=== PATIENT | male | born 1965 | race Caucasian/White ===

== ENCOUNTER 2019-03-11 10:07 | Observation (INO) | payer MEDICAID, SELFPAY ==
[2019-03-11] VITALS (13 sets, daily range): BP systolic 92–145; BP diastolic 57–109; PULSE 65–151; RESP 12–21; TEMP 36.4–37.6; O2SAT 94–97; BMI 22.3; BMI 21.6
--- NOTE | 2019-03-11 10:11 | RAD_ITS ---
STUDY: X-RAY CHEST REASON FOR EXAM: Male, 53 years old. Chest pain with increasing falls and dizziness TECHNIQUE: AP COMPARISON: None. FINDINGS: EKG leads project over the chest. The lungs are clear and expanded. There is no demonstrated pleural abnormality. Normal size heart. Normal mediastinum and carlyn. Normal visualized pulmonary arteries. Normal visualized aortic arch and descending thoracic aorta. There are diffuse degenerative changes of the visualized thoracic spine. Normal visualized ribs, clavicles, and shoulders. There is no demonstrated abnormality of the visualized soft tissue structures of the upper abdomen. RAD/Chest 1 View (Portable) IMPRESSION: Nonacute portable x-ray examination of the chest. Electronically Signed: Khai Nicole MD at 10:36 EDT , Service support ,
--- NOTE | 2019-03-11 10:11 | EKG12_ITS ---
Test Reason : DIZZINESS Blood Pressure : / mmHG Vent. Rate : 069 BPM Atrial Rate : 069 BPM P-R Int : 150 ms QRS Dur : 084 ms QT Int : 402 ms P-R-T Axes : 033 018 044 degrees QTc Int : 430 ms Normal sinus rhythm with sinus arrhythmia Normal ECG Confirmed by LIBAN HARRINGTON, CESAR ([id number]), editorial writer DEMI GUILLEN ([id number] on 03/15/2019 11:57:58 AM Referred By: Jovanny Alva Confirmed By:CESAR LOUIE MD
--- NOTE | 2019-03-11 10:15 | NURSING ---
NO OLD EKGS
--- NOTE | 2019-03-11 10:33 | CT_ITS ---
STUDY: CT ABDOMEN AND PELVIS WITHOUT CONTRAST REASON FOR EXAM: Male, 53 years old. Hernia repair 4 days ago, syncopal episode with dizziness, right hip bruising after falling RADIATION DOSAGE (If Supplied By Facility): CTDIvol = ( 6.44 ) mGy, DLP = ( 437.68 ) mGycm TECHNIQUE: Transaxial images were obtained from the dome of the diaphragm to the symphysis pubis without oral contrast, and without intravenous contrast. Sagittal and coronal images were reconstructed. Individualized dose optimization techniques were used for this CT. COMPARISON: None. FINDINGS: The visualized lung bases are unremarkable. The visualized portions of the heart are within normal limits. Normal liver. Normal gallbladder and extrahepatic biliary system. Normal spleen. Normal pancreas. Normal bilateral adrenal glands. Normal right kidney. Normal left kidney. Normal visualized stomach. Normal small intestine. Normal colon. The appendix is visualized and appears normal. Normal abdominal aorta. Normal inferior vena cava. Normal retroperitoneum. Normal urinary bladder. Small locules of air in the right inguinal region compatible with recent surgery. There is a 3.8 x 4.2 cm rounded hyperdense collection best seen on image 160 in the region of the right inguinal canal, extending to the upper right hemiscrotum. A very small fat-containing left inguinal hernia is identified. There are diffuse degenerative changes of the visualized lumbar spine. No fracture identified. CT/Abdomen/Pelvis without Cont IMPRESSION: 1. 3.8 x 4.2 cm right inguinal hematoma. 2. Small locules of air in the right inguinal region compatible with recent surgery/hernia repair. Electronically Signed: Khai Nicole MD at 11:14 EDT , Service support ,
[2019-03-11 10:42] LABS: Absolute Lymphocyte Count 0.67 X10^3/ul (0.83-4.51); Absolute Neutrophil Count 3.2 X10^3/uL (2.0-7.7); Basophil# 0.01 X10^3/uL; Basophil% 0.2 % (0-1); Eosinophil# 0.03 X10^3/uL; Eosinophils% 0.7 % (0-5); Hematocrit 34.5 % (40-54); Hemoglobin 12.4 g/dl (13.0-16.5); Lymphocyte # 0.67 X10^3/ul (4.0); Lymphocyte % 15.5 % (19-41); Mean Corp Hgb Conc 35.9 g/gl (32-36); Mean Corpuscular Hgb 32.6 pg (27.0-32.0); Mean Corpuscular Volume 90.8 fL (80-94); Mean Platelet Vol. 9.8 fl (6.2-12.0); Monocyte# 0.39 X10^3/uL; Neutrophil # 3.21 X10^3/uL (2.7-7.7); Neutrophil % 74.4 % (47-70); Platelet Count 144 K/mm3 (150-450); RBC Distribution Width CV 13.3 % (11.6-14.6); RBC Distribution Width SD 43.5 fl (35.1-43.9); White Blood Count 4.3 K/mm3 (4.4-11.0)
[2019-03-11 10:45] LABS: POSITIVE COUNT NO; POSITIVE DIFFERENTIAL NO; POSITIVE MORPHOLOGY NO
[2019-03-11 10:57] LABS: Anion Gap 10 (5-15); BUN 10 mg/dL (7-18); BUN/Creat Ratio 12.1 RATIO (10-20); Calcium,Total 9.4 mg/dL (8.5-10.1); Chloride 83 mmol/L (98-107); Creatinine, Serum 0.83 mg/dL (0.70-1.30); EST Glomerular Filtration Rate 104 mL/min (>60); Est Glom Filt Rate - Afr Amer 125 mL/min (>60); Estimated Creatinine Clearance 106.87 ml/min; Glucose 103 mg/dL (74-106); Potassium 3.1 mmol/L (3.5-5.1); Sodium Level 123 mmol/L (136-145)
--- NOTE | 2019-03-11 11:19 | NURSING ---
DR PORTER PAGEFord
--- NOTE | 2019-03-11 11:54 | NURSING ---
DR MANINDER BURROUGHS
--- NOTE | 2019-03-11 11:58 | NURSING ---
PCU MANINDER DIZZINESS, NEAR SYNCOPE
--- NOTE | 2019-03-11 12:02 | ED.VIS.GEN ---
History of Present Illness Chief Complaint: Dizziness Informant: Patient, Family Onset: Yesterday Current Severity: Mild Narrative: Patient indicates he is a few days status post right inguinal hernia repair by Dr. Jarvis, he indicates he had very poor p.o. intake over the last few days, Dr. Moore actually did a home visit March and found to hematoma and some bruising but otherwise unremarkable exam. Patient reports that every time he stands or moves he seems to get dizzy today he did so got dizzy knee basically helped himself to the ground he had no LOC no trauma he states he simply has no appetite to eat anything, he has had normal bowel bladder habits no cardiovascular history no fever no cough no chest pain laying in the bed he has no complaints Past Medical History - Allergies and Home Meds Allergies/Adverse Reactions: Allergies No Known Allergies Allergy (Verified 03/11/19 10:09) Primary Care Physician: Care Physician,No Primary [Primary Care Provider] - Past Medical History: - - See above in the complete chart Smoking Status: Never smoker Review of Systems General: Denies: Chills, Fever, Sweats Eyes: Denies: Visual changes - bilaterally, Diplopia ENT: Denies: Rhinorrhea, Sore throat Cardiovascular: Denies: Chest pain, Palpitations Respiratory: Denies: Dyspnea, Cough, Dyspnea on exertion Gastrointestinal: Denies: Abdominal pain, Nausea, Vomiting, Diarrhea, Melena, Hematochezia Genitourinary: Reports: - - His urinary bowel habits been normal he does have a contusion and some bruising over the right inguinal area that is really stable. Denies: Dysuria, Hematuria, Frequency Musculoskeletal: Denies: Back pain, Extremity Pain Skin: Denies: Rash, Wounds Neurological: Denies: Headache, Weakness, Numbness Physical Exam Vital Signs/Narrative: Vital Signs Temp Pulse Resp BP Pulse Ox 03/11/19 11:07 76 12 139/109 H 96 03/11/19 10:07 97.6 F L 81 16 141/82 H General: Well nourished, Well developed, No Acute Distress Head: Normocephalic, Atraumatic Eyes: Perrl, EOMI ENT: Moist mucous membranes, No rhinorrhea Neck: Supple, Nontender Cardiovascular: Regular rate, Regular rhythm, No murmurs Respiratory: No distress, CTA bilaterally, Chest nontender Abdomen: Soft, Nontender, Nondistended, Normal bowel sounds : - - Over the right inguinal hernia area there is a small subtle HONEY Angela there is contusion minimal pain the incisions intact the scrotum is nontender the contusion extends to the thigh right hemiscrotum and over the right suprapubic region no fluctuance or crepitance Back: Nontender, Normal Inspection Extremities: Nontender, No edema Skin: Normal color, No rash Neurological: Alert, Oriented x3, Cranial nerves II-XII grossly intact, Normal Strength, Normal Sensation Psychological: Normal affect, Normal Mood Diagnostic/Tx/Re-eval - Medical Decision Making Dr. Jarvis called in related to the patient's complaints as to the CT scan be obtained in addition to any other test that are necessary The CT abdomen report is available showing what appears to be postoperative changes nothing acute, the sodium is low at 123 the rest of the screening labs are unremarkable patient's EKG shows sinus rhythm no acute injury pattern heart rate 70, he indicates he had poor p.o. intake, he is apparently on hydrochlorothiazide he has received IV fluids rehydration given all the above, Dr. Jarvis came in and saw the patient, agrees with admission, spoke with the hospitalist given all the above the plan is to admit to medicine for further evaluation treatment Admit stable Final impression Hyponatremia, generalized weakness, dehydration, status post right inguinal hernia repair ED Disposition - Plan for ED Patient: Diagnosis: Hyponatremia Referrals: Care Physician,No Primary [Primary Care Provider] -
--- NOTE | 2019-03-11 12:22 | PCM.CONS.GEN ---
Reason for Consult Date of Consultation: 03/11/19 Reason for Consultation: dizziness, near syncope History of Present Illness: The patient is a 53 year old M whom I performed a right inguinal hernia repair on March 07. the patient had a history of hypertension, anxiety, sleep apnea and previous alcohol abuse.his outpatient medicines were listed as Celexa, lisinopril hydrochlorothiazide, Crestor, Norvasc, naltrexone, fluticasone, multivitamins, he has no listed allergies. The patient underwent an open right inguinal hernia repair under monitored anesthetic care-local sedation. The patient was found to have both a direct and indirect defect. this was repaired using a mesh plug technique using a medium-sized plug placed in the internal ring. Surgery was uneventful. That evening, the patient's called noting he was bleeding from the right inguinal incision. The patient was instructed to hold pressure on the site. The next morning, the patient noted significant bruising with some swelling in the inguinal region the upper thigh and hemiscrotum. he presented to [facility] emergency department and was discharged with instructions contact me. I visited the patient for a house call and found significant bruising without signs of recurrence or other difficulties beyond superficial hematoma/bruise. The patient's and patient again contacted me this morning saying for the last couple days he is felt somewhat dizzy. He's had a poor appetite. This morning he had near syncopal episodes and fell down twice. I recommended to present to [facility] emergency department. I contacted the emergency department to inform that he would be on his way. I asked that they obtain a CT scan of the abdomen given his recent surgical history and postoperative bruising. He states overall he is at a relatively poor appetite. He did note a bowel movement today. Laboratory studies demonstrate a slightly low white blood cell count.hemoglobin is 12.4. Sodium was seen apparently low at 123 with a potassium of 3.1 and a chloride of 83. BUN and creatinine are 10 and 0.8. Urinalysis is currently pending. CT scan of the abdomen demonstrated the right inguinal hematoma and air in the subcutaneous tissues compatible with his recent hernia. No other specific abnormalities or extending hematoma retroperitoneally were noted. Past Medical History Allergies No Known Allergies Allergy (Verified 03/11/19 10:09) Home Medications: Ambulatory Orders Medication Instructions Recorded Hydrochlorothiazide [Hctz] 25 mg PO DAILY 03/11/19 Rosuvastatin Calcium 40 mg PO 03/11/19 Surgical History: herniorrhaphy Smoking Status: Never smoker Review of Systems Constitutional: Reports: Malaise, Fatigue HEENT: Denies: Head Aches, Sinus Congestion, Sinus Drainage Cardiovascular: Denies: Chest Pain, Palpitations Respiratory: Denies: Cough, Shortness of breath at rest, Sputum production Gastrointestinal: Denies: Abdominal Pain, Nausea, Vomiting Genitourinary: Denies: Dysuria Musculoskeletal: Denies: Joint Pain, Joint Tenderness Skin: Denies: Rash, Wounds Neurological: Reports: Balance problems. Denies: Focal weakness, Numbness, Tingling Psychiatric: Denies: Anxiety, Depression, Homicidal Ideations, Suicidal Ideations Hematologic/ Lymphatic: Denies: Easy Bruising, Easy Bleeding Patient Problems: Active and Suspected Problems Hyponatremia (Acute) - Physical Exam General: Alert, Oriented x3, Cooperative Lungs: Clear to auscultation, Normal air movement Cardiovascular: Regular rate, No murmurs Abdomen: Bowel Sounds Present, Soft, Non Tender - abdomen-tender over hematoma in the right inguinal region with swelling consistent with his hematoma area there is bruising in the inguinal area down to the scrotum along with the bruising now tracking down the right anterior thigh. Overall, this area is softer than when seen 3 days previously. Vital Signs Temp Pulse Resp BP Pulse Ox 97.6 F L 76 21 H 145/94 H 97 03/11/19 10:07 03/11/19 12:04 03/11/19 12:04 03/11/19 12:04 03/11/19 12:04 Oxygen Delivery Method Room Air Weight: 72.575 kg Body Mass Index (BMI) 22.3 Laboratory Tests Past 24 Hrs 03/11/19 03/11/19 10:26 10:26 WBC 4.3 L RBC 3.80 L Hgb 12.4 L Hct 34.5 L MCV 90.8 MCH 32.6 H MCHC 35.9 RDW 13.3 RDW Differential 43.5 Plt Count 144 L MPV 9.8 Immature Gran % (Auto) 0.200 Neut % (Auto) 74.4 H Lymph % (Auto) 15.5 L Leslie % (Auto) 9.0 Eos % (Auto) 0.7 Baso % (Auto) 0.2 Absolute Neuts (auto) 3.2 Absolute Lymphs (auto) 0.67 L Total Counted Not Reportable Sodium 123 L Potassium 3.1 L Chloride 83 L Carbon Dioxide 30.0 Anion Gap 10 BUN 10 Creatinine 0.83 Estim Creat Clear Calc 106.87 Est GFR (MDRD) Af Amer 125 Est GFR (MDRD) Non-Af 104 BUN/Creatinine Ratio 12.1 Glucose 103 Calcium 9.4 Troponin I < 0.015 Assessment/Plan All Active Problems Hyponatremia (Acute) hyponatremia, mild confusion, falling - postoperative day 4 status post right inguinal hernia repair with bruising Patient will be admitted to medicine service for evaluation of his hyponatremia and hypokalemia an correction of his electrolyte abnormalities. Likely this is due to water access compared to food, electrolyte intake over the last few days. Patient has significant bruising with a hematoma which is soft no signs of wound infection. We'll follow this area clinically.
[2019-03-11] MEDS: 0.9% Normal Saline 1,000 ML 999 ML IV (12:32)
--- NOTE | 2019-03-11 12:40 | HP.PCM_ITS ---
Problem List (1) CHRONIC ALCOHOL USE DEPENDENCE Status: Chronic (2) Right inguinal hematoma Status: Acute (3) Dizziness Status: Acute (4) Electrolyte abnormality Status: Acute (5) Hypertension Status: Chronic History of Present Illness Date of Admission: 03/11/19 Chief Complaint: Dizziness and fall The patient is a 53 year old M with history of chronic alcohol use and dependence came to ED with feeling of dizziness, lightheadedness and fall twice today. 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 He got dizzy, lightheaded and fell twice once in kitchen and another in the garage but did not sustain any major injury. Patient also had right inguinal direct and indirect open inguinal hernia by on March 07, 2019. Patient developed bruising and hematoma on the evening of surgery and went to [place] ER next day and was discharged with follow-up with Dr. Jarvis. Patient is on conservative weight and watchful management for right inguinal hematoma. Complained of mild pain over right inguinal area. Patient feels more dizzy and lightheaded when he tries to stand up or walks. Patient denies syncope. Patient denies clumsy movement, tinnitus, vomiting, nausea, sudden loss of vision. In ED, blood pressure is 145/91. Heart rate in 70s. Blood pulse ox 97% on room air Past Medical History Past Medical History (Chronic Problems): Chronic Problems CHRONIC ALCOHOL USE DEPENDENCE (Chronic) Hypertension (Chronic) Allergies No Known Allergies Allergy (Verified 03/11/19 10:09) Home Medications: Ambulatory Orders Medication Instructions Recorded Amlodipine Besylate [Norvasc] 5 mg PO DAILY 03/11/19 Ascorbic Acid [Vitamin C] 500 mg PO DAILY@0800 03/11/19 Cyanocobalamin (Vitamin B-12) 2 tab PO DAILY 03/11/19 [B-12] Fluticasone Propionate [Flovent 50 mcg IH DAILY 03/11/19 Diskus] Hydrochlorothiazide [Hctz] 25 mg PO DAILY 03/11/19 Lysine 1,000 mg PO DAILY 03/11/19 Multivitamin [Daily Multiple 1 ea PO DAILY 03/11/19 Vitamin] Naltrexone HCl 50 mg PO DAILY 03/11/19 Potassium Gluconate 2.5 meq PO DAILY 03/11/19 Rosuvastatin Calcium 40 mg PO QHS 03/11/19 Valacyclovir HCl [Valacyclovir] 1,000 mg PO DAILY 03/11/19 Zinc 50 mg PO DAILY 03/11/19 Surgical History: herniorrhaphy Smoking Status: Never smoker - *Family History Maternal History Items: Asthma, Diabetes Review of Systems Constitutional: Reports: Anorexia, Malaise, Weakness, Fatigue HEENT: Denies: Head Aches, Sinus Congestion, Sinus Drainage Cardiovascular: Denies: Chest Pain, Palpitations Respiratory: Denies: Cough, Shortness of breath at rest, Sputum production Gastrointestinal: Reports: Abdominal Pain, - - Right inguinal pain. Denies: Nausea, Vomiting Genitourinary: Denies: Dysuria Musculoskeletal: Denies: Joint Pain, Joint Tenderness Skin: Denies: Rash, Wounds Neurological: Denies: Numbness, Tingling, Focal weakness Psychiatric: Denies: Anxiety, Depression, Homicidal Ideations, Suicidal Ideations Hematologic/ Lymphatic: Denies: Easy Bruising, Easy Bleeding VTE Information - Inpt Only VTE Present on Admission: No VTE Mechan Device Prophylaxis: SCD's, None VTE Pharm Prophylaxis ordered?: No Patient Problems: Active and Suspected Problems Hyponatremia (Acute) Right inguinal hematoma (Acute) Dizziness (Acute) Electrolyte abnormality (Acute) - Physical Exam General: Alert, Oriented x3, Cooperative HEENT: Atraumatic, PERRLA, EOMI, Normocephalic Oral: Dry Mucosa Neck: Supple, No JVD, Negative Carotid Bruits Lungs: Clear to auscultation, Normal air movement, No rhonchi, No wheeze, No rales Cardiovascular: Regular rate, Regular Rhythm, Normal S1, Normal S2, No murmurs Abdomen: Bowel Sounds Present, Soft, Non-Distended, Tender, - - Right inguinal hematoma, with bruise spreading out in the right flank, upper aspect of right thigh and perineal region. Mild tenderness present. Improving. Extremities: No edema, Capillary Refill Less than 3 Seconds Skin: No rashes, No breakdown Musculoskeletal: No Tenderness to Palpation of Joints or Extremities, Arthritic Changes Lymphatic: No Cervical, Supraclavicular, or Inguinal Adenopathy Neurological: Cranial nerves II-XII grossly intact Psych/Mental Status: Normal Affect, Appropriate Vital Signs Temp Pulse Resp BP Pulse Ox 97.6 F L 78 20 H 145/91 H 95 03/11/19 10:07 03/11/19 12:33 03/11/19 12:33 03/11/19 12:33 03/11/19 12:33 Oxygen Delivery Method Room Air Weight: 160 lb Body Mass Index (BMI) 22.3 Laboratory Tests Past 24 Hrs 03/11/19 03/11/19 10:26 10:26 WBC 4.3 L RBC 3.80 L Hgb 12.4 L Hct 34.5 L MCV 90.8 MCH 32.6 H MCHC 35.9 RDW 13.3 RDW Differential 43.5 Plt Count 144 L MPV 9.8 Immature Gran % (Auto) 0.200 Neut % (Auto) 74.4 H Lymph % (Auto) 15.5 L Vilas % (Auto) 9.0 Eos % (Auto) 0.7 Baso % (Auto) 0.2 Absolute Neuts (auto) 3.2 Absolute Lymphs (auto) 0.67 L Total Counted Not Reportable Sodium 123 L Potassium 3.1 L Chloride 83 L Carbon Dioxide 30.0 Anion Gap 10 BUN 10 Creatinine 0.83 Estim Creat Clear Calc 106.87 Est GFR (MDRD) Af Amer 125 Est GFR (MDRD) Non-Af 104 BUN/Creatinine Ratio 12.1 Glucose 103 Calcium 9.4 Troponin I < 0.015 Assessment/Plan All Active Problems Hyponatremia (Acute) Right inguinal hematoma (Acute) Dizziness (Acute) Electrolyte abnormality (Acute) The patient is a 53 year old M with history of chronic alcohol use and dependence came to ED with feeling of dizziness, lightheadedness and fall twice today. 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 He got dizzy, lightheaded and fell twice once in kitchen and another in the garage but did not sustain any major injury. Patient also had right inguinal direct and indirect open inguinal hernia by on March 07, 2019. Patient developed bruising and hematoma on the evening of surgery and went to [place] ER next day and was discharged with follow-up with Dr. Jarvis. Patient is on conservative weight and watchful management for right inguinal hematoma. Complained of mild pain over right inguinal area. Patient feels more dizzy and lightheaded when he tries to stand up or walks. Patient denies syncope. Patient denies clumsy movement, tinnitus, vomiting, nausea, sudden loss of vision. In ED, blood pressure is 145/91. Heart rate in 70s. Blood pulse ox 97% on room air 1. Dizziness/mild vertigo probably secondary to dehydration, and electrolyte abnormality: The patient is being admitted in PCU. IV fluid normal saline 100 developed per hour after 1 L bolus given in ED. Check BMP in the evening. Titrate the IV fluid rate accordingly. Orthostatic vitals ordered. 2. Chronic alcohol abuse and dependence with risk of alcohol withdrawal syndrome: As per , patient drinks about 15-20 beers daily and more on weekends. Patient denies hard liquor. Patient has anxiety and had alcohol withdrawal syndrome in the past. Started on CIWA monitoring and Ativan as needed as per CIWA scale. Monitor intake and output. If patient goes impaired withdrawal, will put on Librium scheduled and taper regimen. 3. Right inguinal hematoma, postoperative after right inguinal direct and indir ect hernia repair with mesh: Patient seen by surgeon, Dr. Maharaj. Improving. Will follow clinically. On conservative management. He does not seem to be infected. No aspirin/anticoagulant. 4. Hypertension: It seems patient has difficult to control blood pressure in the past and is on 3 antihypertensive medications. HCTZ 25, lisinopril 20, amlodipine 5 mg daily. Hold HCTZ. Monitor blood pressure and resume lisinopril and amlodipine accordingly. 6. Lipidemia: CPK ordered. If CPK is normal, can continue rosuvastatin. DVT prophylaxis: On bilateral SCDs. Pharmacological paralysis contraindicated Code Visit Inpatient E&M: 15039 Init Hosp L3
[2019-03-11 14:21] LABS: AST(SGOT) 102 U/L (15-37); Alanine Aminotransfer ALT/SGPT 70 U/L (16-61); Albumin, Serum 3.9 g/dL (3.2-5.0); Alkaline Phosphatase 90 U/L (45-117); Bilirubin, Direct 0.31 mg/dL (0.00-0.30); CPK Total, Creatine Kinase 441 U/L (39-308); GGTP 139 U/L (15-85); Globulin 3.9 g/dL (2.2-4.2); Protein, Total 7.8 g/dL (6.4-8.2)
[2019-03-11 14:21] LABS: Amphetamine Urine VISTA NEGATIVE (<1000 ng/mL); Barbiturate Urine VISTA NEGATIVE (< 200 ng/mL); Benzodiazepine Urine VISTA NEGATIVE (< 200 ng/mL); Cocaine Urine VISTA NEGATIVE (< 300 ng/mL); Ecstacy Urine VISTA NEGATIVE (< 500 ng/mL); Methadone Urine VISTA NEGATIVE (< 300 ng/mL); PCP Urine VISTA NEGATIVE (< 25 ng/mL); THC Urine VISTA NEGATIVE (< 50 ng/mL); Vista UDS pH Range 6
[2019-03-11] MEDS: 0.9% Normal Saline 1,000 ML 100 ML IV (14:25)
[2019-03-11] MEDS: LORazepam 1 MG Tablet 2 MG PO ×4 (14:25→23:26)
[2019-03-11] MEDS: Potassium Chloride 10mEq/100mL 10 MEQ/100 ML IV.SOLN. 100 MEQ IV BOLUS ×2 (15:48→16:55)
[2019-03-11] MEDS: Thiamine Hydrochloride 100 MG Tablet PO (16:57)
[2019-03-11] MEDS: Acyclovir 200 MG Capsule 400 MG PO (23:26)
[2019-03-12] VITALS (9 sets, daily range): BP systolic 132–166; BP diastolic 81–92; PULSE 62–108; RESP 14–15; TEMP 36.8–37; O2SAT 95–98
[2019-03-12] MEDS: 0.9% Normal Saline 1,000 ML 100 ML IV (01:24)
--- NOTE | 2019-03-12 04:45 | NURSING ---
SCHEDULED MIDNIGHT ATIVAN HELD PT HAD RECENTLY RCVD A PRN DOSE OF ATIVAN 2MG AND DID NOT NEED ANY AT THIS TIME. WILL CONTINUE TO MONITOR SEVERITY OF WITHDRAWALS.
[2019-03-12] MEDS: LORazepam 1 MG Tablet 2 MG PO (06:22)
[2019-03-12 06:36] LABS: Anion Gap 7 (5-15); BUN 16 mg/dL (7-18); BUN/Creat Ratio 17.5 RATIO (10-20); Calcium,Total 9.2 mg/dL (8.5-10.1); Chloride 99 mmol/L (98-107); Creatinine, Serum 0.91 mg/dL (0.70-1.30); EST Glomerular Filtration Rate 92 mL/min (>60); Est Glom Filt Rate - Afr Amer 112 mL/min (>60); Estimated Creatinine Clearance 94.43 ml/min; Glucose 92 mg/dL (74-106); Magnesium 1.8 mg/dL (1.6-2.6); Phosphorus 2.6 mg/dL (2.5-4.9); Potassium 3.8 mmol/L (3.5-5.1); Sodium Level 137 mmol/L (136-145); Thyroid Stim Hormone (TSH) 3.33 uIU/mL (0.358-3.74)
[2019-03-12 06:37] LABS: Absolute Lymphocyte Count 0.56 X10^3/ul (0.83-4.51); Absolute Neutrophil Count 2.4 X10^3/uL (2.0-7.7); Basophil# 0.03 X10^3/uL; Basophil% 0.9 % (0-1); Eosinophil# 0.03 X10^3/uL; Eosinophils% 0.9 % (0-5); Hematocrit 34.7 % (40-54); Hemoglobin 11.9 g/dl (13.0-16.5); Lymphocyte # 0.56 X10^3/ul (4.0); Mean Corp Hgb Conc 34.3 g/gl (32-36); Mean Corpuscular Hgb 32.2 pg (27.0-32.0); Mean Platelet Vol. 10.3 fl (6.2-12.0); Monocyte# 0.46 X10^3/uL; Monocyte% 13.1 % (0-10); Neutrophil # 2.42 X10^3/uL (2.7-7.7); Neutrophil % 69.1 % (47-70); Platelet Count 122 K/mm3 (150-450); RBC Distribution Width CV 13.3 % (11.6-14.6); RBC Distribution Width SD 43.6 fl (35.1-43.9); Red Blood Count 3.69 M/mm3 (4.6-6.2); White Blood Count 3.5 K/mm3 (4.4-11.0)
[2019-03-12 06:54] LABS: Differential Indicated SCAN CRITERIA MET; POSITIVE COUNT NO; POSITIVE DIFFERENTIAL YES; POSITIVE MORPHOLOGY NO
[2019-03-12 07:03] LABS: Differential Comment SCANNED
--- NOTE | 2019-03-12 09:11 | PN.SURG_ITS ---
Patient Problems: Active and Suspected Problems Hyponatremia (Acute) Right inguinal hematoma (Acute) Dizziness (Acute) Electrolyte abnormality (Acute) Subjective: patient feeling less dizzy this am - Physical Exam General: Alert, Oriented x3 Lungs: Clear to auscultation, Normal air movement Cardiovascular: Regular rate, No murmurs Abdomen: Bowel Sounds Present, Soft, Non Tender, - - stable Right inguinal bruising Vital Signs Temp Pulse Resp BP Pulse Ox 98.3 F 63 15 132/89 H 97 03/12/19 06:00 03/12/19 07:00 03/12/19 06:00 03/12/19 06:00 03/12/19 06:00 Oxygen Delivery Method Room Air Weight: 70.307 kg Body Mass Index (BMI) 21.6 Orthostatic Vital Signs Start: 03/11/19 18:56 Freq: q24h Status: Active Protocol: Activity Type Activity Date Activity User E-Sign Co-Sign Detail Recorded Client Recorded Date Recorded By Document 03/11/19 18:56 BAM [id number] 03/11/19 18:57 BAM 03/11/19 18:56 Orthostatic Vitals Standing -Blood Pressure (90/60-120/80) 101/57 L -Extremity Use Left Arm -Pulse Rate (60-100) 122 H Sitting -Blood Pressure (90/60-120/80) 92/69 -Extremity Use Left Arm -Pulse Rate (60-100) 101 H Lying -Blood Pressure (90/60-120/80) 123/71 H -Extremity Use Left Arm -Pulse Rate (60-100) 91 Intake and Output for Last 24 Hours 03/10/19 03/11/19 03/12/19 23:59 23:59 23:59 Intake Total 1990 2885 / 2885 Output Total 700 / 800 800 / 800 Balance -338 / 1191 2085 / 2085 Laboratory Tests Past 24 Hrs 03/11/19 03/11/19 03/11/19 10:26 10:26 10:26 WBC 4.3 L RBC 3.80 L Hgb 12.4 L Hct 34.5 L MCV 90.8 MCH 32.6 H MCHC 35.9 RDW 13.3 RDW Differential 43.5 Plt Count 144 L MPV 9.8 Immature Gran % (Auto) 0.200 Neut % (Auto) 74.4 H Lymph % (Auto) 15.5 L [place] % (Auto) 9.0 Eos % (Auto) 0.7 Baso % (Auto) 0.2 Absolute Neuts (auto) 3.2 Absolute Lymphs (auto) 0.67 L Total Counted Not Reportable Differential Comment Diff Path Review Sodium 123 L Potassium 3.1 L Chloride 83 L Carbon Dioxide 30.0 Anion Gap 10 BUN 10 Creatinine 0.83 Estim Creat Clear Calc 106.87 Est GFR (MDRD) Af Amer 125 Est GFR (MDRD) Non-Af 104 BUN/Creatinine Ratio 12.1 Glucose 103 Calcium 9.4 Phosphorus Magnesium Total Bilirubin 1.00 Direct Bilirubin 0.31 H GGT 139 H AST 102 H ALT 70 H Alkaline Phosphatase 90 Total Creatine Kinase 441 H Troponin I < 0.015 Total Protein 7.8 Albumin 3.9 Globulin 3.9 TSH Urine Opiates Screen Urine Methadone Screen Ur Barbiturates Screen Ur Phencyclidine Scrn Ur Amphetamines Screen U Methamphetamin-MDMA U Benzodiazepines Scrn Urine Cocaine Screen U Cannabinoids Screen Ur Drug Screen Comment Ethyl Alcohol 03/11/19 03/11/19 03/11/19 10:30 11:50 14:15 WBC RBC Hgb Hct MCV MCH MCHC RDW RDW Differential Plt Count MPV Immature Gran % (Auto) Neut % (Auto) Lymph % (Auto) [place] % (Auto) Eos % (Auto) Baso % (Auto) Absolute Neuts (auto) Absolute Lymphs (auto) Total Counted Differential Comment Diff Path Review Sodium Potassium Chloride Carbon Dioxide Anion Gap BUN Creatinine Estim Creat Clear Calc Est GFR (MDRD) Af Amer Est GFR (MDRD) Non-Af BUN/Creatinine Ratio Glucose Calcium Phosphorus Magnesium Total Bilirubin Direct Bilirubin GGT AST ALT Alkaline Phosphatase Total Creatine Kinase Troponin I < 0.015 Total Protein Albumin Globulin TSH Urine Opiates Screen NEGATIVE Urine Methadone Screen NEGATIVE Ur Barbiturates Screen NEGATIVE Ur Phencyclidine Scrn NEGATIVE Ur Amphetamines Screen NEGATIVE U Methamphetamin-MDMA NEGATIVE U Benzodiazepines Scrn NEGATIVE Urine Cocaine Screen NEGATIVE U Cannabinoids Screen NEGATIVE Ur Drug Screen Comment Ethyl Alcohol 213.0 03/11/19 03/12/19 03/12/19 17:08 05:34 05:34 WBC 3.5 L RBC 3.69 L Hgb 11.9 L Hct 34.7 L MCV 94.0 MCH 32.2 H MCHC 34.3 RDW 13.3 RDW Differential 43.6 Plt Count 122 L MPV 10.3 Immature Gran % (Auto) 0.000 Neut % (Auto) 69.1 Lymph % (Auto) 16.0 L [place] % (Auto) 13.1 H Eos % (Auto) 0.9 Baso % (Auto) 0.9 Absolute Neuts (auto) 2.4 Absolute Lymphs (auto) 0.56 L Total Counted Not Reportable Differential Comment SCANNED Diff Path Review May foll Sodium 137 Potassium 3.8 Chloride 99 Carbon Dioxide 31.0 Anion Gap 7 BUN 16 Creatinine 0.91 Estim Creat Clear Calc 94.43 Est GFR (MDRD) Af Amer 112 Est GFR (MDRD) Non-Af 92 BUN/Creatinine Ratio 17.5 Glucose 92 Calcium 9.2 Phosphorus 2.6 Magnesium 1.8 Total Bilirubin Direct Bilirubin GGT AST ALT Alkaline Phosphatase Total Creatine Kinase Troponin I < 0.015 Total Protein Albumin Globulin TSH 3.33 Urine Opiates Screen Urine Methadone Screen Ur Barbiturates Screen Ur Phencyclidine Scrn Ur Amphetamines Screen U Methamphetamin-MDMA U Benzodiazepines Scrn Urine Cocaine Screen U Cannabinoids Screen Ur Drug Screen Comment Ethyl Alcohol Medical Necessity - Tobacco Use Smoking Status: Never smoker Assessment/Plan All Active Problems Hyponatremia (Acute) Right inguinal hematoma (Acute) Dizziness (Acute) Electrolyte abnormality (Acute) hyponatremia, mild confusion, falling - postoperative day 4 status post right inguinal hernia repair with bruising Patient will be admitted to medicine service for evaluation of his hyponatremia and hypokalemia an correction of his electrolyte abnormalities. Likely this is due to water access compared to food, electrolyte intake over the last few days. ? ETOH - Electrolytes normalized this morning Patient has significant bruising with a hematoma which is soft no signs of would infection. We'll follow this area clinically. He should follow up in my office this with me.
[2019-03-12] MEDS: Folic Acid 1 MG Tablet PO (09:52)
[2019-03-12] MEDS: Ascorbic Acid 500 MG Tablet PO (09:52)
[2019-03-12] MEDS: Lisinopril 20 MG Tablet PO (09:52)
[2019-03-12] MEDS: Acyclovir 200 MG Capsule 400 MG PO (09:52)
[2019-03-12] MEDS: Multivitamins,Ther W-Minerals Tablet 1 TABLET PO (09:52)
[2019-03-12] MEDS: Thiamine Hydrochloride 100 MG Tablet PO (09:52)
[2019-03-12] MEDS: amLODIPine 5 MG Tablet PO (09:52)
--- NOTE | 2019-03-12 12:05 | CASEMGMT ---
Social Work Consult: Alcohol abuse Informant: Self referral Per patient chart patient consumes 15-20 beers daily. Met with patient in room. Upon this criminal justice social worker entering the home, patient with bag packed on bed and reporting that patient is leaving today. Per Dr. Gomez it is being recommended for patient to continue with hospital stay. This criminal justice social worker communicating that medical staff are not recommending for patient to discharge at this time, patient voicing understanding to this but stating to believe that patient will be able to manage own needs within the community. This criminal justice social worker did broach topic of alcohol use with patient, patient reporting to not need any support or assistance with alcohol abuse and [facility]. Patient significant other present in the room and stating to be planning to be with patient throughout the next couple days as patient is recovering. Notified Dr. Gomez and RN of patient wish to leave today. Patient aware that patient will be leaving AMA if patient chooses to leave today. Clara Cardona, [employer], [place]
--- NOTE | 2019-03-12 12:07 | PCM.CONS.R ---
Problem List (1) Hyponatremia Status: Acute Consultation - Renal 03/12/19 PCP/ Referring MD: Requesting physician. Dr Gomez Primary care physician: No Primary Care Phys Reason for Consultation:: Hyponatremia - History of Present Illness History of Present Illness: The patient is a 53 year old M presented to the hospital with generalized weakness, dizziness. Nephrology being consulted for hyponatremia. Sodium on admission was 123 yesterday and has increased to 137 today. Received IV fluids since admission. On the third of this month he had right inguinal hernia repair. Reviewed notes from Dr. Jarvis. Apparently he had direct and indirect hernia which was repaired. Developed some bruising around the surgical site which is being conservatively managed. [place] goes [place]. Apparently he had blood work last month and was told that he had hyponatremia. He was unable to tell me the exact sodium value. Preadmission medications include hydrochlorothiazide. He says some of his medications were changed at the [place] last month. Could not tell which ones. Drinks 9-12 beers a day. currently having tremors - Allergies Allergies: Allergies No Known Allergies Allergy (Verified 03/11/19 10:09) - Current Medications Current Medications: Current Medications Acetaminophen (Tylenol) 650 mg PO Q6H PRN PRN PRN Reason: Mild pain 1-3/Temp > 100.7 F Acyclovir (Zovirax) 400 mg PO BID [facility] Last Admin: 03/12/19 09:52 Dose: 400 mg Documented by: Albuterol Sulfate (Ventolin Aerosols) 2.5 mg INHALATION Q2H PRN PRN PRN Reason: SOB/Wheezing Amlodipine Besylate (Norvasc) 5 mg PO DAILY [facility] Last Admin: 03/12/19 09:52 Dose: 5 mg Documented by: Ascorbic Acid (Vitamin C) 500 mg PO DAILY@0800 [facility] Last Admin: 03/12/19 09:52 Dose: 500 mg Documented by: Bisacodyl (Dulcolax) 10 mg RECTAL DAILY PRN PRN PRN Reason: Constipation Budesonide (Pulmicort Aerosol) 0.5 mg INHALATION Q12H.RT [facility] Last Admin: 03/12/19 11:05 Dose: Not Given Documented by: Folic Acid (Folic Acid) 1 mg PO DAILY@0800 [facility] Stop: 03/14/19 08:01 Last Admin: 03/12/19 09:52 Dose: 1 mg Documented by: Lisinopril (Zestril) 20 mg PO DAILY [facility] Last Admin: 03/12/19 09:52 Dose: 20 mg Documented by: Lorazepam (Ativan) 2 mg PO Q2H PRN PRN; Protocol PRN Reason: CIWA score > 8 but <15 Last Admin: 03/11/19 23:26 Dose: 2 mg Documented by: Lorazepam (Ativan) 2 mg PO UD PRN; Protocol PRN Reason: CIWA score >/=15. Lorazepam (Ativan) 2 mg IV Q2H PRN PRN; Protocol PRN Reason: CIWA score > 8 but <15 Lorazepam (Ativan) 2 mg IV UD PRN; Protocol PRN Reason: CIWA score >/=15. Lorazepam (Ativan) 2 mg PO Q6H [facility]; Taper Stop: 03/17/19 12:44 Last Admin: 03/12/19 06:22 Dose: 2 mg Documented by: Lorazepam (Ativan) 1 mg PO Q24H PRN PRN Reason: Agitation Melatonin (Melatonin) 3 mg PO QHS PRN PRN PRN Reason: INSOMNIA Morphine Sulfate () 2 mg IV Q3H PRN PRN PRN Reason: Severe Pain (7-10/10) Multivitamins/Minerals ([facility] Admin: 03/12/19 09:52 Dose: 1 tablet Documented by: Ondansetron HCl (Zofran) 4 mg IV Q8H PRN PRN PRN Reason: NAUSEA/VOMITING Oxycodone HCl (Oxyir) 10 mg PO Q4H PRN PRN PRN Reason: Moderate Pain (4-6/10) Promethazine HCl (Phenergan) 12.5 mg IV Q6H PRN PRN PRN Reason: Breakthrough Nausea/Vomiting Senna/Docusate Sodium (Senokot-S, Melvi-Colace) 2 tablet PO BID PRN PRN PRN Reason: Constipation [facility]) [facility] Stop: 03/14/19 08:01 Last Admin: 03/12/19 09:52 Dose: 100 mg Documented by: - Past Medical History Past Medical History (Chronic Problems): Chronic Problems CHRONIC ALCOHOL USE DEPENDENCE (Chronic) Hypertension (Chronic) - Past Surgical History Surgical History: herniorrhaphy - Social History Smoking Status: Never smoker - Family History Maternal History Items: Asthma, Diabetes Review of Systems Constitutional: Denies: Chills, Fever, Weight Change HEENT: Denies: Head Aches, Sinus Congestion, Sinus Drainage Cardiovascular: Denies: Chest Pain, Palpitations Respiratory: Denies: Cough, Shortness of breath at rest, Sputum production Gastrointestinal: Denies: Abdominal Pain, Nausea, Vomiting Genitourinary: Denies: Dysuria Musculoskeletal: Denies: Joint Pain, Joint Tenderness Skin: Denies: Rash, Wounds Neurological: Denies: Numbness, Tingling, Focal weakness Psychiatric: Denies: Anxiety, Depression, Homicidal Ideations, Suicidal Ideations Hematologic/ Lymphatic: Denies: Easy Bruising, Easy Bleeding Patient Problems: Active and Suspected Problems Hyponatremia (Acute) Right inguinal hematoma (Acute) Dizziness (Acute) Electrolyte abnormality (Acute) - Physical Exam General: Alert, Oriented x3, Cooperative HEENT: Atraumatic, PERRLA, EOMI, Normocephalic Neck: Supple, No JVD, Negative Carotid Bruits Lungs: Clear to auscultation, Normal air movement Cardiovascular: Regular rate, No murmurs Abdomen: Bowel Sounds Present, Soft, Non Tender Extremities: No edema, Capillary Refill Less than 3 Seconds Skin: No rashes, No breakdown Musculoskeletal: No Tenderness to Palpation of Joints or Extremities Neurological: Cranial nerves II-XII grossly intact Vital Signs Temp Pulse Resp BP Pulse Ox 98.6 F 86 14 149/87 H 96 03/12/19 09:48 03/12/19 11:16 03/12/19 09:48 03/12/19 11:16 03/12/19 09:48 Oxygen Delivery Method Room Air Weight: 70.307 kg Body Mass Index (BMI) 21.6 Orthostatic Vital Signs Start: 03/11/19 18:56 Freq: q24h Status: Active Protocol: Activity Type Activity Date Activity User E-Sign Co-Sign Detail Recorded Client Recorded Date Recorded By Document 03/12/19 11:16 [id number] 03/12/19 11:16 BAM 03/12/19 11:16 Orthostatic Vitals Standing -Blood Pressure (90/60-120/80) 166/90 H -Extremity Use Left Arm -Pulse Rate (60-100) 108 H Sitting -Blood Pressure (90/60-120/80) 161/91 H -Extremity Use Left Arm -Pulse Rate (60-100) 91 Lying -Blood Pressure (90/60-120/80) 149/87 H -Extremity Use Left Arm -Pulse Rate (60-100) 86 Intake and Output for Last 24 Hours 03/10/19 03/11/19 03/12/19 23:59 23:59 23:59 Intake Total 1990 2885 / 2885 Output Total 700 / 800 800 / 800 Balance -338 / 1191 2084 / 2084 Laboratory Tests Past 24 Hrs 03/11/19 03/11/19 03/11/19 10:26 10:30 11:50 WBC RBC Hgb Hct MCV MCH MCHC RDW RDW Differential Plt Count MPV Immature Gran % (Auto) Neut % (Auto) Lymph % (Auto) [place] % (Auto) Eos % (Auto) Baso % (Auto) Absolute Neuts (auto) Absolute Lymphs (auto) Total Counted Differential Comment Diff Path Review Sodium Potassium Chloride Carbon Dioxide Anion Gap BUN Creatinine Estim Creat Clear Calc Est GFR (MDRD) Af Amer Est GFR (MDRD) Non-Af BUN/Creatinine Ratio Glucose Calcium Phosphorus Magnesium Total Bilirubin 1.00 Direct Bilirubin 0.31 H GGT 139 H AST 102 H ALT 70 H Alkaline Phosphatase 90 Total Creatine Kinase 441 H Troponin I Total Protein 7.8 Albumin 3.9 Globulin 3.9 TSH Urine Opiates Screen NEGATIVE Urine Methadone Screen NEGATIVE Ur Barbiturates Screen NEGATIVE Ur Phencyclidine Scrn NEGATIVE Ur Amphetamines Screen NEGATIVE U Methamphetamin-MDMA NEGATIVE U Benzodiazepines Scrn NEGATIVE Urine Cocaine Screen NEGATIVE U Cannabinoids Screen NEGATIVE Ur Drug Screen Comment Ethyl Alcohol 213.0 03/11/19 03/11/19 03/12/19 14:15 17:08 05:34 WBC RBC Hgb Hct MCV MCH MCHC RDW RDW Differential Plt Count MPV Immature Gran % (Auto) Neut % (Auto) Lymph % (Auto) [place] % (Auto) Eos % (Auto) Baso % (Auto) Absolute Neuts (auto) Absolute Lymphs (auto) Total Counted Differential Comment Diff Path Review Sodium 137 Potassium 3.8 Chloride 99 Carbon Dioxide 31.0 Anion Gap 7 BUN 16 Creatinine 0.91 Estim Creat Clear Calc 94.43 Est GFR (MDRD) Af Amer 112 Est GFR (MDRD) Non-Af 92 BUN/Creatinine Ratio 17.5 Glucose 92 Calcium 9.2 Phosphorus 2.6 Magnesium 1.8 Total Bilirubin Direct Bilirubin GGT AST ALT Alkaline Phosphatase Total Creatine Kinase Troponin I < 0.015 < 0.015 Total Protein Albumin Globulin TSH 3.33 Urine Opiates Screen Urine Methadone Screen Ur Barbiturates Screen Ur Phencyclidine Scrn Ur Amphetamines Screen U Methamphetamin-MDMA U Benzodiazepines Scrn Urine Cocaine Screen U Cannabinoids Screen Ur Drug Screen Comment Ethyl Alcohol 03/12/19 05:34 WBC 3.5 L RBC 3.69 L Hgb 11.9 L Hct 34.7 L MCV 94.0 MCH 32.2 H MCHC 34.3 RDW 13.3 RDW Differential 43.6 Plt Count 122 L MPV 10.3 Immature Gran % (Auto) 0.000 Neut % (Auto) 69.1 Lymph % (Auto) 16.0 L [place] % (Auto) 13.1 H Eos % (Auto) 0.9 Baso % (Auto) 0.9 Absolute Neuts (auto) 2.4 Absolute Lymphs (auto) 0.56 L Total Counted Not Reportable Differential Comment SCANNED Diff Path Review May foll Sodium Potassium Chloride Carbon Dioxide Anion Gap BUN Creatinine Estim Creat Clear Calc Est GFR (MDRD) Af Amer Est GFR (MDRD) Non-Af BUN/Creatinine Ratio Glucose Calcium Phosphorus Magnesium Total Bilirubin Direct Bilirubin GGT AST ALT Alkaline Phosphatase Total Creatine Kinase Troponin I Total Protein Albumin Globulin TSH Urine Opiates Screen Urine Methadone Screen Ur Barbiturates Screen Ur Phencyclidine Scrn Ur Amphetamines Screen U Methamphetamin-MDMA U Benzodiazepines Scrn Urine Cocaine Screen U Cannabinoids Screen Ur Drug Screen Comment Ethyl Alcohol Assessment/Plan All Active Problems Hyponatremia (Acute) Right inguinal hematoma (Acute) Dizziness (Acute) Electrolyte abnormality (Acute) Hyponatremia. Presented with a sodium of 123. As per history he had hyponatremia even last month. Unclear what value he had since the labs were done [place]. Also has alcohol abuse history. Drinks 9-12 beers a day. On hydrochlorothiazide for hypertension, dose changes recently ? 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 rapid correction from fluids is also consistent with this. Rapid correction since yesterday. Since he is high risk for pontine myelinolysis, I advised him to stay in hospital 1 more day so that we can give him IV fluids and possibly desmopressin so that we can push down his sodium levels a little bit for today. We can probably let him correct tomorrow since that would be 48 hours. Explained to him possible adverse effects from rapid sodium correction including seizures, central pontine myelinolysis which can be permanent. However, he is not willing to stay in the hospital today. He mentioned that he feels fine. I explained to him that the effects of rapid correction usually do not show up for 5 to 7 days after the event. I also spoke to his significant other who was at bedside. She says that she would like the patient to stay here today and get fluids but she was also not able to convince him to stay. Patient is currently alert, awake. He can make sound decisions. Will likely need to sign out AMA Discussed with Dr. Gomez. We both agreed that the patient has decision-making capacity and can sign out AMA if he wants to get discharged today. all questions answered DC hydrochlorothiazide at the time of discharge. [facility]
--- NOTE | 2019-03-12 12:17 | NURSING ---
Pt left AMA after being educated by both RN and MD on his sodium level and the reason he should medically stay in the hospital. The patient has hx of alcohol abuse and has been exhibiting withdrawal signs and symptoms and wants to leave so that he can go home and drink so extinguish the symptoms. Patient was A&Ox3, completely coherent and his girlfriend was at bedside and they both despite our recommendation wanted to leave AMA. Patients IV was removed, he was encouraged to f/u with Dr. Jarvis and his PCP as soon as possible. pt left floor on his own ability with girlfriend at his side at 1220.
--- NOTE | 2019-03-12 12:35 | PCM.DC.SUM ---
Discharge Date and Diagnosis Date of Admission: 03/11/19 Date of Discharge: 03/12/19 - Primary Discharge Diagnosis Active and Suspected Problems Hyponatremia (Acute) Right inguinal hematoma (Acute) Dizziness (Acute) Electrolyte abnormality (Acute) - Secondary Discharge Diagnosis Chronic Problems CHRONIC ALCOHOL USE DEPENDENCE (Chronic) Hypertension (Chronic) Hospital Course and Treatment nephrology- Dr Sen general surgery- Dr Maharaj Operations: None, - Procedures: None Summary of Care Provided: The patient is a 53 year old M with past medical history of chronic alcohol abuse was admitted through the ED on 03/11/2019 with a complaint of dizziness and lightheadedness as well as 2 episodes of mechanical fall. Patient had recently had right inguinal hernia repair by Dr. Maharaj on March 07, 2019. He separately developed bruising and hematoma at site of surgery and went to [facility] both ultimately discharged. He complained of mild pain over the right inguinal area. Review of systems is otherwise negative. Vitals were within normal limits and labs were unremarkable. He was admitted and managed for dizziness likely due to dehydration. Was also found to be hyponatremic with sodium of 123 which was thought to be contributing to symptoms. He was hydrated with IV fluid normal saline. He also has a history of chronic alcohol abuse drinking about 15-20 beers daily and more on weekends. Patient was successfully hydrated and sodium went up from 1 23-1 37 the next day. Due to concerns of overcorrection of sodium as it should have corrected about 8 mmol/L over 24 hours, nephrology was consulted. Nephrology recommended a dose of desmopressin and D5 water infusion. However patient insisted on leaving AMA as he said he work on his sodium levels at home himself by drinking water. Despite counseling by electric meter setter and physician, patient insisted on leaving AMA. Patient left the hospital on 03/12/2019 AGAINST MEDICAL ADVICE. Patient was seen and examined prior to discharge. He was quite tremulous but denied any lightheadedness or dizziness or palpitations. Review of systems otherwise negative. Orthostatics was positive. Labs and vitals reviewed. o/e: Vital Signs Height 5 ft 11 in Weight: 155 lb Weight in Pounds 155.0 lbs Pulse Ox 96 Temperature 98.6 F Pulse Rate [Standing] 108 Pulse Rate [Sitting] 91 Pulse Rate [Lying] 86 Pulse Rate 66 Respiratory Rate 14 Blood Pressure [Standing] 166/90 Blood Pressure [Sitting] 161/91 Blood Pressure [Lying] 149/87 Blood Pressure 145/92 Blood Pressure Position Sitting [] General: Alert, Oriented x3, Cooperative HEENT: Atraumatic, PERRLA, EOMI, Normocephalic Oral: Dry Mucosa Neck: Supple, No JVD, Negative Carotid Bruits Lungs: Clear to auscultation, Normal air movement, No rhonchi, No wheeze, No rales Cardiovascular: Regular rate, Regular Rhythm, Normal S1, Normal S2, No murmurs Abdomen: Bowel Sounds Present, Soft, Non-Distended, right groin hematoma, minimal tenderness. Erythema over right flank and upper thigh as well as lower abdomen. Extremities: No edema, Capillary Refill Less than 3 Seconds Skin: No rashes, No breakdown Musculoskeletal: No Tenderness to Palpation of Joints or Extremities, Arthritic Changes Lymphatic: No Cervical, Supraclavicular, or Inguinal Adenopathy Neurological: Cranial nerves II-XII grossly intact Psych/Mental Status: Normal Affect, Appropriate Patient left AMA. Per discussion with nephrology, patient was counseled to stop hydrochlorothiazide at home on account of hyponatremia. - Physical Exam General: Alert, Oriented x3, Cooperative, No apparent distress HEENT: Atraumatic, PERRLA, EOMI, Normocephalic Oral: Dry Mucosa Neck: Supple, No JVD, Negative Carotid Bruits Lungs: Clear to auscultation, Normal air movement, No rhonchi, No wheeze, No rales Cardiovascular: Regular rate, Regular Rhythm, Normal S1, Normal S2, No murmurs Abdomen: Bowel Sounds Present, Soft, Non Tender, Non-Distended, No Hepato-splenomegaly Extremities: No clubbing, No cyanosis, No edema, Capillary Refill Less than 3 Seconds Skin: No rashes, No breakdown Musculoskeletal: No Tenderness to Palpation of Joints or Extremities Lymphatic: No Cervical, Supraclavicular, or Inguinal Adenopathy Neurological: Cranial nerves II-XII grossly intact, Neuro grossly intact, Motor Exam 5/5 strength throughout, - - tremors of UEs Psych/Mental Status: Normal Affect, Appropriate, Alert and oriented to time, place, person, mood and affect Vital Signs Temp Pulse Resp BP Pulse Ox 98.6 F 86 14 149/87 H 96 03/12/19 09:48 03/12/19 11:16 07/08/19 09:48 03/12/19 11:16 03/12/19 09:48 Oxygen Delivery Method Room Air Weight: 155 lb Body Mass Index (BMI) 21.6 Orthostatic Vital Signs Start: 03/11/19 18:56 Freq: q24h Status: Active Protocol: Activity Type Activity Date Activity User E-Sign Co-Sign Detail Recorded Client Recorded Date Recorded By Document 03/12/19 11:16 [facility] [id number] 03/12/19 11:16 [facility] 03/12/19 11:16 Orthostatic Vitals Standing -Blood Pressure (90/60-120/80) 166/90 H -Extremity Use Left Arm -Pulse Rate (60-100) 108 H Sitting -Blood Pressure (90/60-120/80) 161/91 H -Extremity Use Left Arm -Pulse Rate (60-100) 91 Lying -Blood Pressure (90/60-120/80) 149/87 H -Extremity Use Left Arm -Pulse Rate (60-100) 86 Intake and Output for Last 24 Hours 03/10/19 03/11/19 03/12/19 23:59 23:59 23:59 Intake Total / 1990 2885 / 2885 Output Total 700 / 800 800 / 800 Balance -338 / 1191 2085 / 2085 Laboratory Tests Past 24 Hrs 03/11/19 03/11/19 03/11/19 10:26 10:30 11:50 WBC RBC Hgb Hct MCV MCH MCHC RDW RDW Differential Plt Count MPV Immature Gran % (Auto) Neut % (Auto) Lymph % (Auto) [place] % (Auto) Eos % (Auto) Baso % (Auto) Absolute Neuts (auto) Absolute Lymphs (auto) Total Counted Differential Comment Diff Path Review Sodium Potassium Chloride Carbon Dioxide Anion Gap BUN Creatinine Estim Creat Clear Calc Est GFR (MDRD) Af Amer Est GFR (MDRD) Non-Af BUN/Creatinine Ratio Glucose Calcium Phosphorus Magnesium Total Bilirubin 1.00 Direct Bilirubin 0.31 H GGT 139 H AST 102 H ALT 70 H Alkaline Phosphatase 90 Total Creatine Kinase 441 H Troponin I Total Protein 7.8 Albumin 3.9 Globulin 3.9 TSH Urine Opiates Screen NEGATIVE Urine Methadone Screen NEGATIVE Ur Barbiturates Screen NEGATIVE Ur Phencyclidine Scrn NEGATIVE Ur Amphetamines Screen NEGATIVE U Methamphetamin-MDMA NEGATIVE U Benzodiazepines Scrn NEGATIVE Urine Cocaine Screen NEGATIVE U Cannabinoids Screen NEGATIVE Ur Drug Screen Comment Ethyl Alcohol 213.0 03/11/19 03/11/19 03/12/19 14:15 17:08 05:34 WBC RBC Hgb Hct MCV MCH MCHC RDW RDW Differential Plt Count MPV Immature Gran % (Auto) Neut % (Auto) Lymph % (Auto) [place] % (Auto) Eos % (Auto) Baso % (Auto) Absolute Neuts (auto) Absolute Lymphs (auto) Total Counted Differential Comment Diff Path Review Sodium 137 Potassium 3.8 Chloride 99 Carbon Dioxide 31.0 Anion Gap 7 BUN 16 Creatinine 0.91 Estim Creat Clear Calc 94.43 Est GFR (MDRD) Af Amer 112 Est GFR (MDRD) Non-Af 92 BUN/Creatinine Ratio 17.5 Glucose 92 Calcium 9.2 Phosphorus 2.6 Magnesium 1.8 Total Bilirubin Direct Bilirubin GGT AST ALT Alkaline Phosphatase Total Creatine Kinase Troponin I < 0.015 < 0.015 Total Protein Albumin Globulin TSH 3.33 Urine Opiates Screen Urine Methadone Screen Ur Barbiturates Screen Ur Phencyclidine Scrn Ur Amphetamines Screen U Methamphetamin-MDMA U Benzodiazepines Scrn Urine Cocaine Screen U Cannabinoids Screen Ur Drug Screen Comment Ethyl Alcohol 03/12/19 05:34 WBC 3.5 L RBC 3.69 L Hgb 11.9 L Hct 34.7 L MCV 94.0 MCH 32.2 H MCHC 34.3 RDW 13.3 RDW Differential 43.6 Plt Count 122 L MPV 10.3 Immature Gran % (Auto) 0.000 Neut % (Auto) 69.1 Lymph % (Auto) 16.0 L [place] % (Auto) 13.1 H Eos % (Auto) 0.9 Baso % (Auto) 0.9 Absolute Neuts (auto) 2.4 Absolute Lymphs (auto) 0.56 L Total Counted Not Reportable Differential Comment SCANNED Diff Path Review May foll Sodium Potassium Chloride Carbon Dioxide Anion Gap BUN Creatinine Estim Creat Clear Calc Est GFR (MDRD) Af Amer Est GFR (MDRD) Non-Af BUN/Creatinine Ratio Glucose Calcium Phosphorus Magnesium Total Bilirubin Direct Bilirubin GGT AST ALT Alkaline Phosphatase Total Creatine Kinase Troponin I Total Protein Albumin Globulin TSH Urine Opiates Screen Urine Methadone Screen Ur Barbiturates Screen Ur Phencyclidine Scrn Ur Amphetamines Screen U Methamphetamin-MDMA U Benzodiazepines Scrn Urine Cocaine Screen U Cannabinoids Screen Ur Drug Screen Comment Ethyl Alcohol Diagnostic Data Chest X-Ray 03/11/19 10:11 IMPRESSION: Nonacute portable x-ray examination of the chest. Electronically Signed: Khai Nicole MD at 10:36 EDT , Service support , Abdomen/Pelvis CT 03/11/19 10:33 IMPRESSION: 1. 3.8 x 4.2 cm right inguinal hematoma. 2. Small locules of air in the right inguinal region compatible with recent surgery/hernia repair. Electronically Signed: Khai Nicole MD at 11:14 EDT , Service support , Discharge Diet: Low fat/ Low Cholesterol Weight Bearing Status: Weight bearing as tolerated Home Medications: Medications to take at Discharge Amlodipine Besylate [Norvasc] 5 mg PO DAILY 03/11/19 Ascorbic Acid [Vitamin C] 500 mg PO DAILY@0800 03/11/19 Cyanocobalamin (Vitamin B-12) [B-12] 2 tab PO DAILY 03/11/19 Fluticasone Propionate [Flovent Diskus] 50 mcg IH DAILY 03/11/19 Hydrochlorothiazide [Hctz] 25 mg PO DAILY 03/11/19 Lysine 1,000 mg PO DAILY 03/11/19 Multivitamin [Daily Multiple Vitamin] 1 ea PO DAILY 03/11/19 Naltrexone HCl 50 mg PO DAILY 03/11/19 Potassium Gluconate 2.5 meq PO DAILY 03/11/19 Rosuvastatin Calcium 40 mg PO QHS 03/11/19 Valacyclovir HCl [Valacyclovir] 1,000 mg PO DAILY 03/11/19 Zinc 50 mg PO DAILY 03/11/19 Primary Care Physician: Care Physician,No Primary [Primary Care Provider] - Disposition: Against Medical Advice Minutes spent on discharge:: 40 Patient Condition:: Fair Medical Necessity - Tobacco Use Smoking Status: Never smoker Meaningful Use Info Meaningful Use Diagnoses (Choose all that apply): None applicable Code Visit Inpatient E&M: 17552 Disch Hosp
[2019-03-13 10:22] LABS: Pathologist Review Reviewed
== END 2019-03-12 12:35 | disposition left against medical advice (07) ==
LOC: ED 10:42 → PCU 12:20
PROVIDERS: Admitting Provider Internal Medicine; Emergency Provider Emergency Medicine; Referring Provider Internal Medicine; Visit Provider Student in an Organized Health Care Education/Training Program
DX: E86.0 Dehydration (principal); E87.1 Hypo-osmolality and hyponatremia; I10 Essential (primary) hypertension; F41.9 Anxiety disorder, unspecified; G47.30 Sleep apnea, unspecified; Z79.899 Other long term (current) drug therapy; L76.32 Postprocedural hematoma of skin and subcutaneous tissue following other procedure; Y83.8 Other surgical procedures as the cause of abnormal reaction of the patient, or of later complication, without mention of misadventure at the time of the procedure; F10.20 Alcohol dependence, uncomplicated
CPT/HCPCS: 36415; 71045; 74176; 80048; 80076; 80307; 80320; 82550; 82977; 83735; 84100; 84443; 84484; 85025; 93005; 96360; 96361; 97162; 97166; 99218; 99283; J7030; J7040; A4216; G0378; G0480

== ENCOUNTER 2019-04-26 14:19 | Emergency (ER) | payer MEDICAID, SELFPAY ==
[2019-03-11 13:10] VITALS: BMI 21.6
[2019-04-26 14:21] VITALS: BP 145/78; PULSE 87; RESP 16; TEMP 36.2; O2SAT 96; BMI 21.9
--- NOTE | 2019-04-26 15:08 | CT_ITS ---
STUDY: CT BRAIN WITHOUT CONTRAST REASON FOR EXAM: Male, 53 years old. Memory loss. RADIATION DOSAGE (If Supplied By Facility): CTDIvol = ( 44.99 ) mGy, DLP = ( 762.36 ) mGycm TECHNIQUE: Transaxial CT imaging of the brain was performed without administration of intravenous contrast material. Individualized dose optimization techniques were used for this CT. COMPARISON: No relevant priors. FINDINGS: Normal soft tissue structures. Normal calvarium. Normal size ventricles and extra-axial spaces for the patient's age. Normal white matter tracts of the cerebral hemispheres. Normal basal ganglia and thalami. Normal brainstem. Normal cerebellum. There is no intracranial hemorrhage. There are no findings of an acute ischemic infarction. Normal visualized paranasal sinuses. CT/Brain/Head without Contrast IMPRESSION: Normal unenhanced CT scan of the brain. Electronically Signed: Zac Peterson MD at 16:24 EDT , Service support ,
--- NOTE | 2019-04-26 15:09 | EKG12_ITS ---
Test Reason : DYSRHYTHMIA Blood Pressure : / mmHG Vent. Rate : 078 BPM Atrial Rate : 078 BPM P-R Int : 150 ms QRS Dur : 086 ms QT Int : 380 ms P-R-T Axes : 066 -05 049 degrees QTc Int : 433 ms Normal sinus rhythm with sinus arrhythmia Normal ECG Confirmed by YOBANY HARRINGTON, NNEKA ([id number]), supervising editor trailer CHERYL WAGNER ([id number]) on 04/30/2019 11:25:51 A M Referred By: HAL Confirmed By:BILLY HAYWOOD MD
--- NOTE | 2019-04-26 15:24 | ED.VISSUMM ---
- ER Visit Summary Date of Service: 04/26/19 Chief Complaint: [Diarrhea and confusion] History of Present Illness: The patient is a 53 M [presents to the emergency department with 2 to 3-week history of not feeling well. Patient's had 10-15 watery stools per day. Patient had excessive fatigue and is taken 4-5 naps a day. Patient is an alcoholic and drinks 18-24 beers per day. Patient's also noted some memory loss. Patient denies any chest pain or shortness of breath. Patient denies any abdominal pain. He denies recent antibiotic usage. He denies recent travel. Patient did have recent admission for hyponatremia. Patient has history of hypertension and alcohol abuse.] Physical Examination: [HEENT-PERRLA, EOMI. Cranial nerves II through XII grossly intact. TMs clear. Mucous membranes moist. No adenopathy. Cardiovascular-regular rate and rhythm without murmur or ectopy Lungs-clear to auscultation, chest wall stable without crepitus or subcu emphysema Abdomen-normoactive bowel sounds, soft, nontender, no rebound or rigidity, no peritoneal signs. Neuro aogx-[id number] and heel dominguez testing within normal limits, negative Romberg, negative pronator, fundi benign. He does have a fine tremor. Extremities-intact ?4, normal range of motion, normal pulses, atraumatic] Test Results: [EKG obtained on arrival showed sinus rhythm with a ventricular rate of 78 bpm with occasional PACs otherwise no acute segment changes.] CBC with differential obtained showed a white count of 4.5, hemoglobin 13, hematocrit 39.5, plates 112. Chemistries unremarkable. LFTs were slightly elevated with an alk phos of 103 ALT of 109 and AST 113. Ammonia was 31. Troponin is less than 0.15. Alcohol was 302. CT scan of the brain without contrast showed nothing acute. I ordered stool cultures as well as C. difficile and enteric pathogens however patient unable to give a sample in the ER. Emergency Department Course and Treatment: [I recommended alcohol treatment program as I suspect his symptoms are likely related to his alcohol use. Patient states that he does not want to be admitted for that and thinks that [facility] or do it on his own at home. Patient is refusing any type of admission.] Treatment Plan: [She will be given a prescription to bring back stool sample for C. difficile as well as enteric pathogens. Advised to seek help through my credit program for alcohol detox.] Disposition: [Discharged home stable condition] Impression: [EtOH abuse Diarrhea] This note was generated with [employer] dictation software. It may contain incorrect words, spelling, and punctuation that were not noted in review of the chart prior to signing ED Disposition - Plan for ED Patient: Referrals: Care Physician,No Primary [Primary Care Provider] -
[2019-04-26] MEDS: 0.9% Normal Saline 1,000 ML 150 ML IV (15:53)
[2019-04-26 15:58] LABS: AST(SGOT) 113 U/L (15-37); Alanine Aminotransfer ALT/SGPT 109 U/L (16-61); Albumin, Serum 3.9 g/dL (3.2-5.0); Alkaline Phosphatase 103 U/L (45-117); Anion Gap 13 (5-15); BUN 10 mg/dL (7-18); Calcium,Total 8.7 mg/dL (8.5-10.1); Chloride 97 mmol/L (98-107); Creatinine, Serum 0.83 mg/dL (0.70-1.30); EST Glomerular Filtration Rate 103 mL/min (>60); Est Glom Filt Rate - Afr Amer 124 mL/min (>60); Estimated Creatinine Clearance 104.85 ml/min; Globulin 3.8 g/dL (2.2-4.2); Glucose 116 mg/dL (74-106); Potassium 3.3 mmol/L (3.5-5.1); Protein, Total 7.7 g/dL (6.4-8.2); Sodium Level 138 mmol/L (136-145)
[2019-04-26 16:02] LABS: White Blood Count 4.5 K/mm3 (4.4-11.0)
[2019-04-26 16:03] LABS: Hematocrit 39.5 % (40-54); Hemoglobin 13.4 g/dL (13.0-16.5); Mean Corp Hgb Conc 33.9 g/dL (32-36); Mean Corpuscular Hgb 32.1 pg (27.0-32.0); Mean Corpuscular Volume 94.7 fL (80-94); Platelet Count 112 K/mm3 (150-450); RBC Distribution Width SD 42.4 fl (35.1-43.9); Red Blood Count 4.17 M/mm3 (4.6-6.2)
[2019-04-26 16:04] LABS: POSITIVE COUNT NO; POSITIVE DIFFERENTIAL NO; POSITIVE MORPHOLOGY NO
[2019-04-26 16:50] VITALS: BP 133/99; PULSE 88; RESP 21; O2SAT 97
[2019-04-26 16:50] LABS: Eosinophils% 0.4 % (0-5); Lymphocyte % 21.7 % (19-41); Monocyte% 6.5 % (0-10); Neutrophil % 70.3 % (47-70)
[2019-04-26 16:51] LABS: Absolute Lymphocyte Count 0.97 X10^3/uL (0.83-4.51); Absolute Neutrophil Count 3.2 X10^3/uL (2.0-7.7); Lymphocyte # 0.97 X10^3/ul (4.0); Neutrophil # 3.15 X10^3/uL (2.7-7.7)
--- NOTE | 2019-04-26 16:53 | ED.DEP ---
ED Disposition - Plan for ED Patient: Instructions: DIARRHEA, Unk Cause (Adult) Report Pendg, Alcohol Abuse Referrals: Care Physician,No Primary [Primary Care Provider] - Fortino Flores MD [STAFF PHYSICIAN] - 3-5 Days
[2019-04-26 16:56] LABS: Basophil# 0.04 X10^3/uL; Eosinophil# 0.02 X10^3/uL; Monocyte# 0.29 X10^3/uL
== END 2019-04-26 17:17 | disposition home or self-care (01) ==
LOC: ED 15:37
PROVIDERS: Emergency Provider Emergency Medicine
DX: F10.10 Alcohol abuse, uncomplicated (principal); R19.7 Diarrhea, unspecified; I10 Essential (primary) hypertension; Z72.0 Tobacco use
CPT/HCPCS: 70450; 80053; 80320; 82140; 84484; 85025; 93005; 96360; 96361; 99285; J7030; A4216; G0480

== ENCOUNTER → 2019-04-26 17:05 | Outpatient (CLI) | payer MEDICAID, SELFPAY ==
[2019-04-26 14:21] VITALS: BMI 21.9
== END ==
PROVIDERS: Family Provider Family Medicine; PCP Family Medicine; Referring Provider Emergency Medicine; Visit Provider Emergency Medicine
DX: R19.7 Diarrhea, unspecified (principal)

== ENCOUNTER → 2019-04-27 18:35 | Outpatient (CLI) | payer MEDICAID, SELFPAY ==
[2019-04-26 14:21] VITALS: BMI 21.9
== END ==
PROVIDERS: Visit Provider Family Medicine
DX: R19.7 Diarrhea, unspecified (principal)
CPT/HCPCS: 87177; 87209; 87493; 87506

== ENCOUNTER 2020-07-08 16:42 | Inpatient (IN) | payer OTHER, MEDICAID, SELFPAY ==
[2020-07-08] VITALS (13 sets, daily range): BP systolic 117–202; BP diastolic 71–99; PULSE 79–96; RESP 16–22; TEMP 36.9–37.2; O2SAT 95–995; BMI 25.2; BMI 25.4
--- NOTE | 2020-07-08 17:31 | EKG12_ITS ---
Test Reason : Blood Pressure : / mmHG Vent. Rate : 080 BPM Atrial Rate : 080 BPM P-R Int : 164 ms QRS Dur : 092 ms QT Int : 386 ms P-R-T Axes : 030 002 049 degrees QTc Int : 445 ms Normal sinus rhythm Normal ECG Confirmed by NICOLÁS HARRINGTON, MARYCARMEN ([id number]), web editor JEAN BRINK ([id number]) on 07/10/2020 11:24:50 AM Referred By: MARVIN Confirmed By:MARYCARMEN MONZON MD
--- NOTE | 2020-07-08 17:31 | CT_ITS ---
STUDY: CT BRAIN WITHOUT CONTRAST REASON FOR EXAM: Male, 54 years old. FOUND ON GARAGE FLOOR, ETOH, PT UNABLE TO HOLD STILL, LAC TO BACK OF HEAD RADIATION DOSAGE (If Supplied By Facility): CTDIvol = ( 44.99 ) mGy, DLP = ( 796.11 ) mGycm TECHNIQUE: Transaxial CT imaging of the brain was performed without administration of intravenous contrast material. Individualized dose optimization techniques were used for this CT. COMPARISON: 04/26/2019. FINDINGS: Moderate soft tissue swelling at the vertex. Normal calvarium. Normal size ventricles and extra-axial spaces for the patient''s age. Normal white matter tracts of the cerebral hemispheres. Normal basal ganglia and thalami. Normal brainstem. Normal cerebellum. There is no intracranial hemorrhage. There are no findings of an acute ischemic infarction. Normal visualized paranasal sinuses. CT/Brain/Head without Contrast IMPRESSION: Soft tissue swelling, otherwise negative unenhanced CT scan of the brain. Electronically Signed: Ade Marie MD at 18:40 EST Tel , Service support ,
--- NOTE | 2020-07-08 17:32 | CT_ITS ---
STUDY: CT CERVICAL SPINE WITHOUT CONTRAST REASON FOR EXAM: Male, 54 years old. FOUND ON GARAGE FLOOR, ETOH, PT UNABLE TO HOLD STILL, LAC TO BACK OF HEAD RADIATION DOSAGE (If Supplied By Facility): CTDIvol = ( 23.78 ) mGy, DLP = ( 550.78 ) mGycm TECHNIQUE: High resolution transaxial imaging was performed without contrast material. Sagittal and coronal images were reconstructed. Individualized dose optimization techniques were used for this CT. COMPARISON: None FINDINGS: Several images are degraded by patient motion. Normal craniovertebral junction. Normal anterior atlantoaxial articulation. Normal odontoid process. Normal cervical lordosis. Normal vertebral bodies and posterior osseous elements. C2-3: Normal endplates. Normal disc height and morphology. Normal central canal and intervertebral neuroforamina. C3-4: Normal endplates. Normal disc height and morphology. Normal central canal and intervertebral neuroforamina. C4-5: Normal endplates. Normal disc height and morphology. Normal central canal. Severe right foraminal stenosis due to uncinate and facet hypertrophy. C5-6: Normal endplates. Normal disc height and morphology. Normal central canal. Mild left foraminal encroachment due to uncinate hypertrophy. C6-7: Normal endplates. Normal disc height and morphology. Normal central canal and intervertebral neuroforamina. C7-T1: Normal endplates. Normal disc height and morphology. Normal central canal and intervertebral neuroforamina. Normal visualized soft tissue structures. CT/Spine Cervical without Contras IMPRESSION: 1. This study is slightly limited due to patient motion. There is no demonstrated fracture. Subtle, nondisplaced fracture could be missed. If there is continued clinical suspicion, consider repeat study when the patient is able to tolerate the procedure. 2. Mild degenerative changes, detailed above. Electronically Signed: Ade Marie MD at 18:48 EST Tel , Service support ,
--- NOTE | 2020-07-08 17:33 | ED.VIS.GEN ---
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 EMS was called when his found him laying on the garage floor. He notes injury to the occiput of the head. He is unsure of what happened. He does note that he has been drinking alcohol. It is unclear if he had a loss of consciousness or how long he was laying on the ground. He is unsure of his last tetanus shot. He denies any extremity back chest or abdominal symptoms. - Past Medical History (1) Electrolyte abnormality Status: Chronic (2) CHRONIC ALCOHOL USE DEPENDENCE Status: Chronic (3) Hypertension Status: Chronic Past Medical History - Allergies and Home Meds Allergies/Adverse Reactions: Allergies No Known Allergies Allergy (Verified 07/08/20 16:47) Primary Care Physician: Rupert Coker MD [Primary Care Provider] - 7 Days for suture removal Prior records reviewed: Yes Surgical History: herniorrhaphy Lives: Spouse/ Significant Other Smoking Status: Current every day smoker Alcohol: Heavy - Family History Maternal Family History: Reports: Asthma, Diabetes Review of Systems General: Denies: Chills, Fever, Sweats Eyes: Denies: Visual changes - bilaterally, Diplopia ENT: Denies: Rhinorrhea, Sore throat Cardiovascular: Denies: Chest pain, Palpitations Respiratory: Denies: Dyspnea, Cough, Dyspnea on exertion Gastrointestinal: Denies: Abdominal pain, Nausea, Vomiting, Diarrhea, Melena, Hematochezia Genitourinary: Denies: Dysuria, Hematuria, Frequency Musculoskeletal: Denies: Back pain, Extremity Pain Skin: Denies: Rash, Wounds Neurological: Reports: Headache. Denies: Weakness, Numbness Physical Exam Vital Signs/Narrative: Vital Signs Temp Pulse Resp BP Pulse Ox 07/08/20 16:43 98.5 F 79 22 H 153/97 H 99 Inital Vital Signs reviewed: Yes General: Well nourished, Well developed, No Acute Distress Head: Normocephalic, Trauma - There is a macerated 2 cm T-shaped laceration to the vertex of the scalp. There is a superficial abrasion to the right forehead. Eyes: Perrl, EOMI ENT: Moist mucous membranes, No rhinorrhea Neck: Supple, Nontender Cardiovascular: Regular rate, Regular rhythm, No murmurs Respiratory: No distress, CTA bilaterally, Chest nontender Abdomen: Soft, Nontender, Nondistended, Normal bowel sounds Back: Nontender, Normal Inspection Extremities: Nontender, No edema Skin: Normal color, No rash Neurological: Alert, Oriented x3, Cranial nerves II-XII grossly intact, Normal Strength, Normal Sensation Psychological: Normal affect, Normal Mood Diagnostic/Tx/Re-eval Clinical Impression(s) from Imaging Studies Brain CT 07/08/20 17:31 IMPRESSION: Soft tissue swelling, otherwise negative unenhanced CT scan of the brain. Electronically Signed: Ade Marie MD at 18:40 EST Tel , Service support , Cervical Spine CT 07/08/20 17:32 IMPRESSION: 1. This study is slightly limited due to patient motion. There is no demonstrated fracture. Subtle, nondisplaced fracture could be missed. If there is continued clinical suspicion, consider repeat study when the patient is able to tolerate the procedure. 2. Mild degenerative changes, detailed above. Electronically Signed: Ade Marie MD at 18:48 EST Tel , Service support , Chest X-Ray 07/08/20 18:10 IMPRESSION: Normal x-ray examination of the chest. Electronically Signed: Ade Marie MD at 18:33 EST Tel , Service support , Laboratory Last Values WBC 7.1 K/mm3 (4.4-11.0) 07/08/20 17:00 RBC 4.38 M/mm3 (4.6-6.2) L 07/08/20 17:00 Hgb 14.1 g/dL (13.0-16.5) 07/08/20 17:00 Hct 38.2 % (40-54) L 07/08/20 17:00 MCV 87.2 fL (80-94) 07/08/20 17:00 MCH 32.2 pg (27.0-32.0) H 07/08/20 17:00 MCHC 36.9 g/dL (32-36) H 07/08/20 17:00 RDW Std Deviation 35.0 fl (35.1-43.9) L 07/08/20 17:00 RDW Coeff of Sheryl 11.0 % (11.6-14.6) L 07/08/20 17:00 Plt Count 147 K/mm3 (150-450) L 07/08/20 17:00 MPV 10.1 fl (6.2-12.0) 07/08/20 17:00 Immature Gran % (Auto) 0.700 % (0.0-0.9) 07/08/20 17:00 Neut % (Auto) 80.6 % (47-70) H 07/08/20 17:00 Lymph % (Auto) 8.8 % (19-41) L 07/08/20 17:00 [place] % (Auto) 9.5 % (0-10) 07/08/20 17:00 Eos % (Auto) 0.3 % (0-5) 07/08/20 17:00 Baso % (Auto) 0.1 % (0-1) 07/08/20 17:00 Absolute Neuts (auto) 5.8 X10^3/uL (2.0-7.7) 07/08/20 17:00 Absolute Lymphs (auto) 0.63 X10^3/uL (0.83-4.51) L 07/08/20 17:00 Nucleated RBC % 0 % (0-5) 07/08/20 17:00 Sodium 112 mmol/L (136-145) L* 07/08/20 17:00 Potassium 2.6 mmol/L (3.5-5.1) L* 07/08/20 17:00 Chloride 67 mmol/L (98-107) L* 07/08/20 17:00 Carbon Dioxide 29.0 mmol/L (21.0-32.0) 07/08/20 17:00 Anion Gap 16 (5-15) H 07/08/20 17:00 BUN 19 mg/dL (7-18) H 07/08/20 17:00 Creatinine 1.06 mg/dL (0.70-1.30) 07/08/20 17:00 Estim Creat Clear Calc 85.84 ml/min 07/08/20 17:00 Est GFR (MDRD) Af Amer 94 mL/min (>60) 07/08/20 17:00 Est GFR (MDRD) Non-Af 77 mL/min (>60) 07/08/20 17:00 BUN/Creatinine Ratio 17.9 RATIO (10-20) 07/08/20 17:00 Glucose 93 mg/dL (74-106) 07/08/20 17:00 Calcium 8.7 mg/dL (8.5-10.1) 07/08/20 17:00 Total Bilirubin 1.60 mg/dL (0.20-1.00) H 07/08/20 17:00 AST 56 U/L (15-37) H 07/08/20 17:00 ALT 62 U/L (16-61) H 07/08/20 17:00 Alkaline Phosphatase 88 U/L (45-117) 07/08/20 17:00 Total Creatine Kinase 251 U/L (39-308) 07/08/20 17:00 Troponin I < 0.015 ng/mL (<0.045) 07/08/20 17:00 Total Protein 7.9 g/dL (6.4-8.2) 07/08/20 17:00 Albumin 4.0 g/dL (3.2-5.0) 07/08/20 17:00 Globulin 3.9 g/dL (2.2-4.2) 07/08/20 17:00 Albumin/Globulin Ratio 1.0 RATIO (0.9-2.4) 07/08/20 17:00 Ethyl Alcohol 47.0 mg/dL 07/08/20 17:00 - Medical Decision Making Laceration note: There was a significant amount of bleeding coming from that the laceration. It appeared to be arterial in nature and a small arterial was identified. This was ligated using 2 simple interrupted 5-0 Vicryl sutures. The skin and wound were washed with Shur-Clens explored and then closed using a total of 5 simple erupted 4-0 Ethilon sutures. Stitches will need to be removed in 5 to 7 days. Patient was found to be profoundly hyponatremic and hypokalemic. My concern is that the patient sustained a cardiac dysrhythmia or seizure. Patient was advised of this and I recommended that he be admitted. Patient appears to have the capacity to decline this recommendation. I did speak with the patient's who is okay with him leaving. I will have him sign out AMA. I will give him some fluids and some potassium while he is here. Patient was discharged and his was pulling up to the ramp to get him when he began to seize. He is brought back to the room. Received a milligram of Ativan followed by 100 cc of 3% saline. At this point as he has altered mental status and his is now in agreement that he need should be admitted. - Critical Care Time Critical care time (excluding procedures): 30-74 minutes - 35 minutes, Discussing w/Patient &/or Family/On Site Property Manager, Discussing w/Consultants, Arranging Admission or Transfer, Performing Direct Patient Care at Bedside ED Disposition - Plan for ED Patient: Disposition: Acute Care Hospital [facility] Diagnosis: Scalp laceration, Hyponatremia, Hypokalemia, Seizure Instructions: ED Head Injury Adult, ED Hyponatremia, ED Laceration Scalp Sutures or Brady Referrals: Rupert Coker MD [Primary Care Provider] - 7 Days for suture removal
[2020-07-08 17:44] LABS: Absolute Lymphocyte Count 0.63 X10^3/uL (0.83-4.51); Absolute Neutrophil Count 5.8 X10^3/uL (2.0-7.7); Basophil# 0.01 X10^3/uL; Basophil% 0.1 % (0-1); Eosinophil# 0.02 X10^3/uL; Eosinophils% 0.3 % (0-5); Hematocrit 38.2 % (40-54); Hemoglobin 14.1 g/dL (13.0-16.5); Lymphocyte # 0.63 X10^3/ul (4.0); Lymphocyte % 8.8 % (19-41); Mean Corp Hgb Conc 36.9 g/dL (32-36); Mean Corpuscular Hgb 32.2 pg (27.0-32.0); Mean Corpuscular Volume 87.2 fL (80-94); Mean Platelet Vol. 10.1 fl (6.2-12.0); Monocyte# 0.68 X10^3/uL; Monocyte% 9.5 % (0-10); NRBC Flagged by Analyzer 0 % (0-5); Neutrophil # 5.75 X10^3/uL (2.7-7.7); Neutrophil % 80.6 % (47-70); Platelet Count 147 K/mm3 (150-450); Red Blood Count 4.38 M/mm3 (4.6-6.2); White Blood Count 7.1 K/mm3 (4.4-11.0)
--- NOTE | 2020-07-08 18:10 | RAD_ITS ---
STUDY: X-RAY CHEST REASON FOR EXAM: Male, 54 years old. fall, found in garage on floor by , ETOH+ patient could not follow breathing instructions TECHNIQUE: Single AP portable view of the chest. COMPARISON: 03/11/2019. FINDINGS: The lungs are clear and expanded. There is no demonstrated pleural abnormality. Normal size heart. Normal mediastinum and carlyn. Normal visualized pulmonary arteries. Normal visualized aortic arch and descending thoracic aorta. Normal visualized thoracic spine. Normal visualized ribs, clavicles, and shoulders. There is no demonstrated abnormality of the visualized soft tissue structures of the upper abdomen. RAD/Chest 1 View (Portable) IMPRESSION: Normal x-ray examination of the chest. Electronically Signed: Ade Marie MD at 18:33 EST Tel , Service support ,
[2020-07-08 18:11] LABS: CPK Total, Creatine Kinase 251 U/L (39-308)
[2020-07-08 18:26] LABS: AST(SGOT) 56 U/L (15-37); Alanine Aminotransfer ALT/SGPT 62 U/L (16-61); Alkaline Phosphatase 88 U/L (45-117); Anion Gap 16 (5-15); BUN 19 mg/dL (7-18); BUN/Creat Ratio 17.9 RATIO (10-20); Calcium,Total 8.7 mg/dL (8.5-10.1); Chloride 67 mmol/L (98-107); Creatinine, Serum 1.06 mg/dL (0.70-1.30); EST Glomerular Filtration Rate 77 mL/min (>60); Est Glom Filt Rate - Afr Amer 94 mL/min (>60); Estimated Creatinine Clearance 85.84 ml/min; Globulin 3.9 g/dL (2.2-4.2); Glucose 93 mg/dL (74-106); Potassium 2.6 mmol/L (3.5-5.1); Protein, Total 7.9 g/dL (6.4-8.2); Sodium Level 112 mmol/L (136-145)
--- NOTE | 2020-07-08 19:25 | ED.RN ---
patient signing out AMA. Dr Zamora at bedside explain all the risks. patient verbalizes understanding. patients on the phone with Dr Zamora, she verbalizes understanding and is willing to take patient home. Patient signs AMA form and is given copy.
--- NOTE | 2020-07-08 19:49 | ED.RN ---
PATIENT WAS WAITING AT ED DOORS IN WHEELCHAIR FOR TO PICK HIM UP. PATIENT STARTED TO SEIZE. THIS RN CALLED FOR HELP AND WE ASSISTED PATIENT ONTO ED COT. PATIENT PLACED BACK INTO ROOM 17. DR WONG CALLED TO BEDSIDE. PATIENT SNORING RESPIRATIONS AT THIS TIME. PATIENT WAS INCONTINENT OF URINE.
[2020-07-08] MEDS: LORazepam 2 MG/ML Syringe 1 MG IV (20:02)
[2020-07-08] MEDS: Sodium Chloride 3% 300 ML 999 ML IV (20:06)
[2020-07-08] MEDS: Potassium Chloride 10mEq/100mL 10 MEQ/100 ML IV.SOLN. 100 MEQ IV BOLUS (20:07)
--- NOTE | 2020-07-08 20:31 | PCM.HP.STD ---
Problem List (1) Hyponatremia Status: Acute (2) Seizure Status: Acute (3) Alcohol withdrawal Status: Acute Qualifiers: Complication of substance-induced condition: with unspecified complication Qualified Code(s): F10.239 - Alcohol dependence with withdrawal, unspecified (4) Hypokalemia Status: Acute (5) Elevated LFTs Status: Acute (6) Thrombocytopenia Status: Acute (7) HTN (hypertension) Status: Chronic Qualifiers: Hypertension type: essential hypertension Qualified Code(s): I10 - Essential (primary) hypertension (8) HLD (hyperlipidemia) Status: Chronic Qualifiers: Hyperlipidemia type: unspecified Qualified Code(s): E78.5 - Hyperlipidemia, unspecified (9) Tobacco use Status: Chronic History of Present Illness Date of Admission: 07/08/20 Chief Complaint: Fall, scalp laceration, seizure The patient is a 54 y/o M w/ PMHx: EtOH Abuse (18-24 beers daily), Tobacco use, HTN, HLD who presents to the [facility] ED on 07/08/20 with possible history of mechanical fall, found by his laying in the garage with a laceration to the back of his head but unclear story with EMS arrival noted glucose 102 but admitted that he had been drinking. Unclear timeline of events including whether or not he lost consciousness prior to fall. Patient notes last beer intake was a.m. on day of ED presentation. He does admit that he has been attempting to decrease his beer intake and interest in sobriety. Work-up in the ED included T 98.5, heart rate 79, BP 153/97, respiratory rate 22, 99% on room air, CBC with WBC 7.1, hemoglobin 14.1, platelet 147 without significant left shift with lymphopenia, CMP with sodium 112, potassium 2.6, chloride 67, anion gap 16, BUN/creatinine 19/1.06, total bilirubin 1.60, AST/ALT 56/62, T CK 251, troponin less than 0.015, ethyl alcohol level 47, chest x-ray with no acute cardiopulmonary findings, CT brain with soft tissue edema otherwise negative unenhanced CT of the brain, CT cervical spine limited secondary to motion however no demonstrated fracture although a subtle nondisplaced fracture could be missed secondary to movement, mild degenerative changes. In the ED patient administered potassium oral and IV supplementation in addition to normal saline. Patient initially signed out AMA and was at the exit door awaiting his when he had onset of tonic clonic seizure, lasted < 1 minute. He was brought back into the ED and administered 1 mg ativan IV x 1 and 100 cc 3% NS. Past Medical History Past Medical History (Chronic Problems): Chronic Problems CHRONIC ALCOHOL USE DEPENDENCE (Chronic) Electrolyte abnormality (Chronic) Hypertension (Chronic) HTN (hypertension) (Chronic) HLD (hyperlipidemia) (Chronic) Tobacco use (Chronic) Allergies No Known Allergies Allergy (Verified 07/08/20 16:47) Home Medications: Ambulatory Orders Medication Instructions Recorded Amlodipine Besylate [Norvasc] 5 mg PO DAILY 03/11/19 Ascorbic Acid [Vitamin C] 500 mg PO DAILY@0800 03/11/19 Cyanocobalamin (Vitamin B-12) 2 tab PO DAILY 03/11/19 [B-12] Fluticasone Propionate [Flovent 50 mcg IH DAILY 03/11/19 Diskus] Hydrochlorothiazide [Hctz] 25 mg PO DAILY 03/11/19 Lysine 1,000 mg PO DAILY 03/11/19 Multivitamin [Daily Multiple 1 ea PO DAILY 03/11/19 Vitamin] Naltrexone HCl 50 mg PO DAILY 03/11/19 Potassium Gluconate 2.5 meq PO DAILY 03/11/19 Rosuvastatin Calcium 40 mg PO QHS 03/11/19 Valacyclovir HCl [Valacyclovir] 1,000 mg PO DAILY 03/11/19 Zinc 50 mg PO DAILY 03/11/19 Surgical History: herniorrhaphy Psychiatric History: No pertinent psych hx Lives: Spouse/ Significant Other Smoking Status: Current every day smoker - Patient notes currently chew tobacco with 1/2 can daily. Tobacco Use: Chew Alcohol: Heavy - Patient normally 18-24 beers daily however states he has been attempting to cut back and interested in sobriety. Notes last drink was a.m. on day of ED presentation. Drugs: None - *Family History Maternal History Items: Asthma, Diabetes, Heart Disease Paternal History Items: Diabetes, Heart Disease Review of Systems Constitutional: Reports: Malaise, Weakness, Fatigue. Denies: Anorexia, Chills, Fever, Weight Change HEENT: Reports: Head Aches. Denies: Sinus Congestion, Sinus Drainage Cardiovascular: Reports: Syncope - Unclear possible syncope.. Denies: Chest Pain, Palpitations Respiratory: Denies: Cough, Shortness of breath at rest, Sputum production Gastrointestinal: Denies: Abdominal Pain, Nausea, Vomiting Genitourinary: Denies: Dysuria Musculoskeletal: Reports: Joint Pain. Denies: Joint Tenderness Skin: Reports: Skin Changes. Denies: Rash, Wounds Neurological: Reports: Confusion, Seizures. Denies: Focal weakness, Numbness, Tingling Psychiatric: Denies: Anxiety, Depression, Homicidal Ideations, Suicidal Ideations Hematologic/ Lymphatic: Reports: Anemia. Denies: Easy Bruising, Easy Bleeding VTE Information - Inpt Only VTE Present on Admission: No VTE Mechan Device Prophylaxis: SCD's VTE Pharm Prophylaxis ordered?: No Reason prophylaxis not ordered:: Medical Contraindication - Hold chemoprophylaxis given bleeding head laceration. Patient Problems: Active and Suspected Problems Hyponatremia (Acute) Scalp laceration (Acute) Hypokalemia (Acute) Seizure (Acute) Subjective: Patient laying in the ED bed, postictal phase resolving, no complaints currently. Objective: Physical Examination: General: awake, alert, oriented to self, place, president and year, remains cooperative, laying in the ED bed, fatigued but no acute distress. Skin: normal color, turgor, no icterus, cyanosis except noted occasional very staged ecchymoses, scalp laceration posteriorly and on the forehead, some active bleeding given recent seizure activity and patient frequently touching during evaluation. HEENT: AT/NC, EOMI, PERRLA, dry MM, noted tongue bite likely from recent seizure, no carotid bruits or JVD noted. Lungs: CTA bilaterally, moderate effort, moderate decrease BL bases, no rales, ronchi or wheezing. Heart: Regular rate and rhythm; no gallop, rub audible. Abdomen: soft, NTTP, ND, normal BS, positive HM. Extremities: no cyanosis, clubbing, or edema. Neurological: patient awake, alert, oriented as noted; cognitive function appears to be improving, suspect near baseline; pupils equally reactive to light and accomodation; cranial nerves II-XII grossly normal, moving all 4 extremities, no focal deficits, strength moderately to severely globally decreased secondary to acute presentation. Psychiatric: affect appears fatigued, no acute evidence of depressive or anxiety feelings. - Physical Exam Vitals/I&O's: Vital Signs Temp Pulse Resp BP Pulse Ox 98.5 F 93 19 H 117/93 H 97 07/08/20 16:43 07/08/20 20:16 07/08/20 20:16 07/08/20 20:16 07/08/20 20:16 Oxygen Delivery Method Room Air Weight: 183 lb 13.848 oz Body Mass Index (BMI) 25.2 Intake and Output for Last 24 Hours 07/06/20 07/07/20 07/08/20 23:59 23:59 23:59 Intake Total 233.2 / 233.2 Balance 233.2 / 233.2 Laboratory Results 07/08/20 17:00: WBC 7.1, RBC 4.38 L, Hgb 14.1, Hct 38.2 L, MCV 87.2, MCH 32.2 H, MCHC 36.9 H, RDW Std Deviation 35.0 L, RDW Coeff of Sheryl 11.0 L, Plt Count 147 L, MPV 10.1, Immature Gran % (Auto) 0.700, Neut % (Auto) 80.6 H, Lymph % (Auto) 8.8 L, [place] % (Auto) 9.5, Eos % (Auto) 0.3, Baso % (Auto) 0.1, Absolute Neuts (auto) 5.8, Absolute Lymphs (auto) 0.63 L, Nucleated RBC % 0 07/08/20 17:00: Sodium 112 L*, Potassium 2.6 L*, Chloride 67 L*, Carbon Dioxide 29.0, Anion Gap 16 H, BUN 19 H, Creatinine 1.06, Estim Creat Clear Calc 85.84, Est GFR (MDRD) Af Amer 94, Est GFR (MDRD) Non-Af 77, BUN/Creatinine Ratio 17.9, Glucose 93, Calcium 8.7, Total Bilirubin 1.60 H, AST 56 H, ALT 62 H, Alkaline Phosphatase 88, Troponin I < 0.015, Total Protein 7.9, Albumin 4.0, Globulin 3.9, Albumin/Globulin Ratio 1.0 07/08/20 17:00: Ethyl Alcohol 47.0 07/08/20 17:00: Total Creatine Kinase 251 Assessment/Plan All Active Problems Hyponatremia (Acute) Right inguinal hematoma (Acute) Dizziness (Acute) Scalp laceration (Acute) Hypokalemia (Acute) Seizure (Acute) Seizure (Acute) Alcohol withdrawal (Acute) Hypokalemia (Acute) Elevated LFTs (Acute) Thrombocytopenia (Acute) The patient is a 54 y/o M w/ PMHx: EtOH Abuse (18-24 beers daily), Tobacco use, HTN, HLD who presents to the [facility] ED on 07/08/20 with possible history of mechanical fall, found by his laying in the garage with a laceration to the back of his head but unclear story with EMS arrival noted glucose 102 but admitted that he had been drinking. Unclear timeline of events including whether or not he lost consciousness prior to fall however patient admitted to recent attempted sobriety with seizure activity while in the emergency room. 1. Hyponatremia, Severe, Acute on Chronic with Seizure Activity: Likely secondary to beer potomania and component of hypovolemia, now new onset seizure activity witnessed in the ED following patient AMA attempt while at ED door awaiting ride, will admit to the ICU, consult ICU physician, continue judicious usage of 3% saline, serial BMP given usage of this agent, attempt to avoid > 12 mEq/24 hours, treat EtOH withdrawal, obtain TSH, mag, UOsm, FeNa levels concurrently, request Nephrology input concurrently given severity of presentation, will maintain n.p.o. status until assured no further seizure activity and complete resolution following postictal state. 2. Mechanical fall, suspected seizure, multifactorial including electrolyte disturbances, EtOH abuse, dehydration: CT of the head and CT of the cervical spine with no overt intracranial findings, only noted soft tissue findings, ED intervention with placement of sutures to laceration with recommendation for removal of sutures in 5 to 7 days. Seizure activity while in the ED, opened up suture again, ED repeat intervention. Will maintain on fall and seizure precautions and continue treatment as noted #1. 3. Hypokalemia: Admission K+ 2.6, magnesium level requested, supplementation given, repeat level in AM. 4. EtOH Abuse: Patient notes routine consumption of 18-24 beers per day. Will maintain on CIWA protocol, MVI, thiamine and folic acid. Will initiate and continue on protocol with taper course of Phenobarbital, gabapentin for seizure prophylaxis, as needed Catapres, Bentyl, Vistaril, IV fluids, IV antiemetics, Tylenol as needed for pain. Will consult Case management for assistance for transition to next level of rehabilitation care. Mag, phos pending. 5. Elevated LFTs, suspect chronic: Admission total bilirubin 1.6, AST/ALT 56/62, suspect chronic component given alcohol abuse, continue treatment as noted, repeat CMP in a.m. 6. Thrombocytopenia, suspect chronic: Admission platelet 147, likely chronic given alcohol abuse, continue treatment as noted, repeat CBC in AM. 7. Hypertension: We will continue patient home Norvasc, hold hydrochlorothiazide especially given patient alcohol abuse history likely exacerbates electrolyte situation. As needed IV hydralazine. 8. Hyperlipidemia: Continue home statin regimen. 9. Tobacco Abuse: Encouraged cessation, inpatient consultation per RT, NR if desired. 10. DVT prophylaxis: SCDs, defer chemoprophylaxis given recent head injury and laceration status post suturing, add once clinically appropriate. Critical Care Time: 90 minutes, time from 20:00-21:30, were spent addressing patients acute presentation, acute change of status, review of all data in collaboration with care team in addition to discussion with family. Procedures: Other Procedure - See Report - Billin x 1 and [phone] x 1 (total 90 minutes)
--- NOTE | 2020-07-08 23:23 | ED.RN ---
Desi called and updated on patients status and room number. Her number is [phone].
[2020-07-09] VITALS (22 sets, daily range): BP systolic 121–165; BP diastolic 78–123; PULSE 76–91; RESP 15–24; TEMP 36.7–37.3; O2SAT 91–98
[2020-07-09 00:04] LABS: Anion Gap 11 (5-15); BUN 19 mg/dL (7-18); BUN/Creat Ratio 18.6 RATIO (10-20); Calcium,Total 8.5 mg/dL (8.5-10.1); Chloride 76 mmol/L (98-107); Creatinine, Serum 1.02 mg/dL (0.70-1.30); EST Glomerular Filtration Rate 81 mL/min (>60); Est Glom Filt Rate - Afr Amer 98 mL/min (>60); Glucose 96 mg/dL (74-106); Sodium Level 115 mmol/L (136-145); Thyroid Stim Hormone (TSH) 1.49 uIU/mL (0.358-3.74)
[2020-07-09] MEDS: Sodium Chloride 3% 500 ML 60 ML IV (00:10)
[2020-07-09] MEDS: Phenobarbital 32.4 MG Tablet 97.2 MG PO ×4 (00:16→13:48)
[2020-07-09] MEDS: Famotidine 20 MG Tablet PO ×2 (00:17→09:16)
[2020-07-09] MEDS: Atorvastatin Calcium 80 MG Tablet PO (00:17)
[2020-07-09 00:29] LABS: Phosphorus 2.4 mg/dL (2.5-4.9)
[2020-07-09] MEDS: Potassium Chloride 10mEq/100mL 10 MEQ/100 ML IV.SOLN. 100 MEQ IV BOLUS ×4 (00:48→03:53)
[2020-07-09 01:09] LABS: Amphetamine Urine VISTA NEGATIVE (<1000 ng/mL); Barbiturate Urine VISTA NEGATIVE (< 200 ng/mL); Benzodiazepine Urine VISTA NEGATIVE (< 200 ng/mL); Cocaine Urine VISTA NEGATIVE (< 300 ng/mL); Ecstacy Urine VISTA NEGATIVE (< 500 ng/mL); Methadone Urine VISTA NEGATIVE (< 300 ng/mL); PCP Urine VISTA NEGATIVE (< 25 ng/mL); THC Urine VISTA NEGATIVE (< 50 ng/mL); Urine Sodium 8 mmol/L (Not Establ.); Vista UDS pH Range 5
[2020-07-09 01:16] LABS: Osmolality, Urine 379 mOsm/KG
[2020-07-09 02:00] LABS: Anion Gap 9 (5-15); BUN 18 mg/dL (7-18); BUN/Creat Ratio 18.4 RATIO (10-20); Calcium,Total 8.3 mg/dL (8.5-10.1); Chloride 79 mmol/L (98-107); Creatinine, Serum 0.98 mg/dL (0.70-1.30); EST Glomerular Filtration Rate 85 mL/min (>60); Est Glom Filt Rate - Afr Amer 103 mL/min (>60); Estimated Creatinine Clearance 92.84 ml/min; Glucose 98 mg/dL (74-106); Potassium 3.2 mmol/L (3.5-5.1); Sodium Level 116 mmol/L (136-145)
[2020-07-09] MEDS: 0.9% Saline Lock 10 ML Syringe IV (04:15)
[2020-07-09] MEDS: LORazepam 2 MG/ML Syringe IV (04:15)
[2020-07-09 05:09] LABS: Absolute Neutrophil Count 5.8 X10^3/uL (2.0-7.7); Hematocrit 28.2 % (40-54); Hemoglobin 10.1 g/dL (13.0-16.5); Mean Corp Hgb Conc 35.8 g/dL (32-36); Mean Corpuscular Hgb 31.6 pg (27.0-32.0); Mean Corpuscular Volume 88.1 fL (80-94); Mean Platelet Vol. 9.6 fl (6.2-12.0); Monocyte# 0.68 X10^3/uL; Monocyte% 10.2 % (0-10); NRBC Flagged by Analyzer 0 % (0-5); Neutrophil # 5.77 X10^3/uL (2.7-7.7); Neutrophil % 86.5 % (47-70); POSITIVE DIFFERENTIAL YES; POSITIVE MORPHOLOGY YES; Platelet Count 100 K/mm3 (150-450); RBC Distribution Width CV 11.1 % (11.6-14.6); RBC Distribution Width SD 36.2 fl (35.1-43.9); White Blood Count 6.7 K/mm3 (4.4-11.0)
[2020-07-09 05:21] LABS: Differential Indicated SCAN CRITERIA MET
[2020-07-09 05:28] LABS: AST(SGOT) 49 U/L (15-37); Alanine Aminotransfer ALT/SGPT 48 U/L (16-61); Albumin, Serum 3.4 g/dL (3.2-5.0); Alkaline Phosphatase 77 U/L (45-117); Anion Gap 9 (5-15); BUN 16 mg/dL (7-18); BUN/Creat Ratio 16.9 RATIO (10-20); Calcium,Total 7.8 mg/dL (8.5-10.1); Chloride 87 mmol/L (98-107); Creatinine, Serum 0.95 mg/dL (0.70-1.30); EST Glomerular Filtration Rate 88 mL/min (>60); Est Glom Filt Rate - Afr Amer 107 mL/min (>60); Estimated Creatinine Clearance 95.78 ml/min; Globulin 3.4 g/dL (2.2-4.2); Glucose 97 mg/dL (74-106); Potassium 3.4 mmol/L (3.5-5.1); Protein, Total 6.8 g/dL (6.4-8.2); Sodium Level 121 mmol/L (136-145)
[2020-07-09 05:47] LABS: Differential Comment SCANNED
--- NOTE | 2020-07-09 05:55 | RAD_ITS ---
STUDY: X-RAY CHEST REASON FOR EXAM: Male, 54 years old. DYSPNEA, COUGH, SEIZURE, ETOH WITHDRAWAL TECHNIQUE: Single AP portable view of the chest. COMPARISON: Comparison is made with prior study dated 07/08/2020. FINDINGS: EKG electrodes are seen. The lungs are clear and expanded. There is no demonstrated pleural abnormality. Normal size heart. Normal mediastinum and carlyn. Normal visualized pulmonary arteries. Normal visualized aortic arch and descending thoracic aorta. There are diffuse degenerative changes of the visualized thoracic spine. Normal visualized ribs, clavicles, and shoulders. There is no demonstrated abnormality of the visualized soft tissue structures of the upper abdomen. RAD/Chest 1 View (Portable) IMPRESSION: No acute abnormality is seen. Electronically Signed: Alessio Wayne, at 9:45 EST , Service support ,
--- NOTE | 2020-07-09 06:18 | PCM.CON.CC ---
Reason for Consult Date of Consultation: 07/09/20 Reason for Consultation: Hyponatremia, seizure, alcohol withdrawal History of Present Illness: The patient is a 54-year-old male, with a history as outlined below, who presented to the emergency department on July 08 after being found in an altered state on the ground in his garage by his . The patient had reportedly fallen and struck the back of his head. He does have a longstanding history of alcohol dependency and per his drinks approximately 18-24 beers per day. The patient is currently to somnolent to provide any additional details pertinent to his hospitalization. On presentation to the emergency department, the patient was noted to be afebrile and hemodynamically stable. He was initially maintaining appropriate oxygen saturations on room air. Laboratory evaluation revealed a normal white blood cell count. Chemistry profile was notable for a sodium of 112, potassium of 2.6, chloride of 67 and creatinine of 1.06. Total bili was increased to 1.6 with an AST of 56 and ALT of 62. Troponin was negative. Toxicology screen was negative. Alcohol level was noted to be 47. CT head revealed local soft tissue swelling without intracranial abnormality. The patient did require sutures to the laceration of his head. Following this, the patient requested to sign out AGAINST MEDICAL ADVICE. He was placed in a wheelchair and upon exiting the emergency department experienced a witnessed seizure. The patient returned to the ED, where he was started on hypertonic saline due to his hyponatremia. The patient was subsequently admitted to the medical intensive care unit for further management. Past Medical History Past Medical History (Chronic Problems): Chronic Problems CHRONIC ALCOHOL USE DEPENDENCE (Chronic) Electrolyte abnormality (Chronic) Hypertension (Chronic) HTN (hypertension) (Chronic) HLD (hyperlipidemia) (Chronic) Tobacco use (Chronic) Allergies No Known Allergies Allergy (Verified 07/08/20 16:47) Home Medications: Ambulatory Orders Medication Instructions Recorded Amlodipine Besylate [Norvasc] 5 mg PO DAILY 03/11/19 Fluticasone Propionate [Flovent 50 mcg IH DAILY 03/11/19 Diskus] Hydrochlorothiazide [Hctz] 25 mg PO DAILY 03/11/19 Naltrexone HCl 100 mg PO DAILY 03/11/19 Potassium Gluconate 99 meq PO DAILY 03/11/19 Rosuvastatin Calcium 40 mg PO QHS 03/11/19 Valacyclovir HCl [Valacyclovir] 1,000 mg PO DAILY PRN 03/11/19 Cetirizine HCl 10 mg PO DAILY 07/09/20 Cholecalciferol (Vitamin D3) 1 tab PO DAILY 07/09/20 [Vitamin D3] Citalopram [Celexa] 40 mg PO DAILY 07/09/20 Cyanocobalamin (Vitamin B-12) 1,000 mcg PO DAILY 07/09/20 [Vitamin B-12] Fish Oil/Dha/Epa [Fish Oil 1,200 1 ea PO DAILY 07/09/20 mg Fish Oil] Lisinopril 20 mg PO DAILY 07/09/20 Thiamine Mononitrate (Vit B1) 100 mg PO DAILY 07/09/20 [Vitamin B-1] hydrOXYzine tablet [Atarax tablet] 25 mg PO DAILY 07/09/20 Surgical History: herniorrhaphy Psychiatric History: No pertinent psych hx Lives: Spouse/ Significant Other Smoking Status: Current every day smoker - Patient notes currently chew tobacco with 1/2 can daily. Tobacco Use: Chew Alcohol: Heavy - Patient normally 18-24 beers daily however states he has been attempting to cut back and interested in sobriety. Notes last drink was a.m. on day of ED presentation. Drugs: None - *Family History Maternal History Items: Asthma, Diabetes, Heart Disease Paternal History Items: Diabetes, Heart Disease Review of Systems Unable to obtain accurate/complete ROS d/t: Due to degree of encephalopathy. Patient Problems: Active and Suspected Problems Hyponatremia (Acute) Scalp laceration (Acute) Hypokalemia (Acute) Seizure (Acute) Seizure (Acute) Alcohol withdrawal (Acute) Hypokalemia (Acute) Elevated LFTs (Acute) Thrombocytopenia (Acute) Objective: The patient's most recent lab work, culture data and imaging studies have all been personally reviewed. - Physical Exam Vitals/I&O's: Vital Signs Temp Pulse Resp BP Pulse Ox 98.4 F 84 20 H 121/78 H 91 07/09/20 04:00 07/09/20 06:00 07/09/20 06:00 07/09/20 06:00 07/09/20 06:00 Oxygen Delivery Method Room Air Weight: 177 lb 14.609 oz Body Mass Index (BMI) 25.4 Intake and Output for Last 24 Hours 07/07/20 07/08/20 07/09/20 23:59 23:59 23:59 Intake Total 333.2 / 333.2 510 / 510 Balance 333.2 / 333.2 510 / 510 General: Lethargic HEENT: Atraumatic, Normocephalic Oral: Dry Mucosa Neck: Supple, No Nodes, Trachea Midline Lungs: Diminished, - - Sonorous respirations Cardiovascular: Regular rate, Regular Rhythm Abdomen: Bowel Sounds Present, Soft, Non Tender Extremities: No clubbing, No cyanosis, No edema Skin: - - Sutured scalp laceration present Musculoskeletal: No Muscle Wasting Lymphatic: No Cervical, Supraclavicular, or Inguinal Adenopathy Neurological: - - No focal neurological deficits. Psych/Mental Status: Flat Affect Labs (Last 48 Hours) 07/08/20 07/08/20 07/08/20 17:00 17:00 17:00 WBC 7.1 RBC 4.38 L Hgb 14.1 Hct 38.2 L MCV 87.2 MCH 32.2 H MCHC 36.9 H RDW Std Deviation 35.0 L RDW Coeff of Sheryl 11.0 L Plt Count 147 L MPV 10.1 Immature Gran % (Auto) 0.700 Neut % (Auto) 80.6 H Lymph % (Auto) 8.8 L Grundy % (Auto) 9.5 Eos % (Auto) 0.3 Baso % (Auto) 0.1 Absolute Neuts (auto) 5.8 Absolute Lymphs (auto) 0.63 L Nucleated RBC % 0 Differential Comment Sodium 112 L* Potassium 2.6 L* Chloride 67 L* Carbon Dioxide 29.0 Anion Gap 16 H BUN 19 H Creatinine 1.06 Estim Creat Clear Calc 85.84 Est GFR (MDRD) Af Amer 94 Est GFR (MDRD) Non-Af 77 BUN/Creatinine Ratio 17.9 Glucose 93 Calcium 8.7 Phosphorus Magnesium Total Bilirubin 1.60 H AST 56 H ALT 62 H Alkaline Phosphatase 88 Total Creatine Kinase Troponin I < 0.015 Total Protein 7.9 Albumin 4.0 Globulin 3.9 Albumin/Globulin Ratio 1.0 TSH Urine Osmolality Ur Random Sodium Urine Creatinine Urine Opiates Screen Urine Methadone Screen Ur Barbiturates Screen Ur Phencyclidine Scrn Ur Amphetamines Screen U Methamphetamin-MDMA U Benzodiazepines Scrn Urine Cocaine Screen U Cannabinoids Screen Ur Drug Screen Comment Ethyl Alcohol 47.0 07/08/20 07/08/2007/08/20 17:00 17:00 23:30 WBC RBC Hgb Hct MCV MCH MCHC RDW Std Deviation RDW Coeff of Sheryl Plt Count MPV Immature Gran % (Auto) Neut % (Auto) Lymph % (Auto) Grundy % (Auto) Eos % (Auto) Baso % (Auto) Absolute Neuts (auto) Absolute Lymphs (auto) Nucleated RBC % Differential Comment Sodium 115 L* Potassium 3.0 L Chloride 76 L Carbon Dioxide 28.0 Anion Gap 11 BUN 19 H Creatinine 1.02 Estim Creat Clear Calc 89.20 Est GFR (MDRD) Af Amer 98 Est GFR (MDRD) Non-Af 81 BUN/Creatinine Ratio 18.6 Glucose 96 Calcium 8.5 Phosphorus Magnesium 2.0 Total Bilirubin AST ALT Alkaline Phosphatase Total Creatine Kinase 251 Troponin I Total Protein Albumin Globulin Albumin/Globulin Ratio TSH 1.49 Urine Osmolality Ur Random Sodium Urine Creatinine Urine Opiates Screen Urine Methadone Screen Ur Barbiturates Screen Ur Phencyclidine Scrn Ur Amphetamines Screen U Methamphetamin-MDMA U Benzodiazepines Scrn Urine Cocaine Screen U Cannabinoids Screen Ur Drug Screen Comment Ethyl Alcohol 07/08/20 07/09/20 07/09/20 23:30 00:35 00:35 WBC RBC Hgb Hct MCV MCH MCHC RDW Std Deviation RDW Coeff of Sheryl Plt Count MPV Immature Gran % (Auto) Neut % (Auto) Lymph % (Auto) Grundy % (Auto) Eos % (Auto) Baso % (Auto) Absolute Neuts (auto) Absolute Lymphs (auto) Nucleated RBC % Differential Comment Sodium Potassium Chloride Carbon Dioxide Anion Gap BUN Creatinine Estim Creat Clear Calc Est GFR (MDRD) Af Amer Est GFR (MDRD) Non-Af BUN/Creatinine Ratio Glucose Calcium Phosphorus 2.4 L Magnesium Total Bilirubin AST ALT Alkaline Phosphatase Total Creatine Kinase Troponin I Total Protein Albumin Globulin Albumin/Globulin Ratio TSH Urine Osmolality 379 Ur Random Sodium 8 Urine Creatinine 79.70 Urine Opiates Screen NEGATIVE Urine Methadone Screen NEGATIVE Ur Barbiturates Screen NEGATIVE Ur Phencyclidine Scrn NEGATIVE Ur Amphetamines Screen NEGATIVE U Methamphetamin-MDMA NEGATIVE U Benzodiazepines Scrn NEGATIVE Urine Cocaine Screen NEGATIVE U Cannabinoids Screen NEGATIVE Ur Drug Screen Comment Ethyl Alcohol 07/09/20 07/09/20 07/09/20 01:30 04:50 04:50 WBC 6.7 RBC 3.20 L Hgb 10.1 L Hct 28.2 L MCV 88.1 MCH 31.6 MCHC 35.8 RDW Std Deviation 36.2 RDW Coeff of Sheryl 11.1 L Plt Count 100 L MPV 9.6 Immature Gran % (Auto) 0.300 Neut % (Auto) 86.5 H Lymph % (Auto) 3.0 L Grundy % (Auto) 10.2 H Eos % (Auto) 0.0 Baso % (Auto) 0.0 Absolute Neuts (auto) 5.8 Absolute Lymphs (auto) 0.20 L Nucleated RBC % 0 Differential Comment SCANNED Sodium 116 L* 121 L Potassium 3.2 L 3.4 L Chloride 79 L 87 L Carbon Dioxide 28.0 25.0 Anion Gap 9 9 BUN 18 16 Creatinine 0.98 0.95 Estim Creat Clear Calc 92.84 95.78 Est GFR (MDRD) Af Amer 103 107 Est GFR (MDRD) Non-Af 85 88 BUN/Creatinine Ratio 18.4 16.9 Glucose 98 97 Calcium 8.3 L 7.8 L Phosphorus Magnesium Total Bilirubin 2.00 H AST 49 H ALT 48 Alkaline Phosphatase 77 Total Creatine Kinase Troponin I Total Protein 6.8 Albumin 3.4 Globulin 3.4 Albumin/Globulin Ratio 1.0 TSH Urine Osmolality Ur Random Sodium Urine Creatinine Urine Opiates Screen Urine Methadone Screen Ur Barbiturates Screen Ur Phencyclidine Scrn Ur Amphetamines Screen U Methamphetamin-MDMA U Benzodiazepines Scrn Urine Cocaine Screen U Cannabinoids Screen Ur Drug Screen Comment Ethyl Alcohol Clinical Impression(s) from Imaging Studies Brain CT 07/08/20 17:31 IMPRESSION: Soft tissue swelling, otherwise negative unenhanced CT scan of the brain. Electronically Signed: Ade Marie MD at 18:40 EST Tel , Service support , Cervical Spine CT 07/08/20 17:32 IMPRESSION: 1. This study is slightly limited due to patient motion. There is no demonstrated fracture. Subtle, nondisplaced fracture could be missed. If there is continued clinical suspicion, consider repeat study when the patient is able to tolerate the procedure. 2. Mild degenerative changes, detailed above. Electronically Signed: Ade Marie MD at 18:48 EST Tel , Service support , Chest X-Ray 07/08/20 18:10 IMPRESSION: Normal x-ray examination of the chest. Electronically Signed: Ade Marie MD at 18:33 EST Tel , Service support , Current Medications Acetaminophen (Acetaminophen 500 Mg Tablet) 500 mg PO Q4H PRN PRN PRN Reason: Temp > 100.4 F Acyclovir (Acyclovir 200 Mg Capsule) 400 mg PO BID [facility] Al Hydroxide/Mg Hydroxide (Mag Hydrox/Al Hydrox/Simeth 30 Ml Udc) 30 ml PO Q6H PRN PRN PRN Reason: dyspesia Albuterol Sulfate (Albuterol 2.5 Mg/3 Ml Vial.Neb.) 2.5 mg INHALATION Q2H PRN PRN PRN Reason: Dyspnea, wheezing Amlodipine Besylate (Amlodipine 5 Mg Tablet) 5 mg PO DAILY [facility] Atorvastatin Calcium (Atorvastatin Calcium 80 Mg Tablet) 80 mg PO QHS [facility] Last Admin: 07/09/20 00:17 Dose: 80 mg Documented by: Bisacodyl (Bisacodyl 10 Mg Suppository) 10 mg RECTAL DAILY PRN PRN Reason: Constipation Dicyclomine HCl (Dicyclomine 10 Mg Capsule) 20 mg PO Q6H PRN PRN PRN Reason: abdominal discomfort Famotidine (Famotidine 20 Mg Tablet) 20 mg PO BID [facility] Last Admin: 07/09/20 00:17 Dose: 20 mg Documented by: Folic Acid (Folic Acid 1 Mg Tablet) 1 mg PO DAILY@0800 [facility] Folic Acid (Folic Acid 1 Mg Tablet) 1 mg PO DAILY@0800 [facility] Stop: 07/11/20 08:01 Gabapentin (Gabapentin 300 Mg Capsule) 300 mg PO Q8H PRN PRN PRN Reason: moderate to severe anxiety Guaifenesin (Guaifenesin 10 Ml Udc (200mg/10ml)) 10 ml PO Q4H PRN PRN PRN Reason: COUGH Hydralazine HCl (Hydralazine 20 Mg/Ml Vial) 10 mg IV Q4H PRN PRN PRN Reason: SBP > 160 Hydroxyzine Pamoate (Hydroxyzine Freya 25 Mg Capsule) 50 mg PO Q4H PRN PRN PRN Reason: mild anxiety Sodium Chloride () 250 mls @ 15 mls/hr IV .[id number] PRN PRN Reason: Saline Flush Sodium Chloride () 250 mls @ 15 mls/hr IV .[id number] PRN PRN Reason: Additional IVPB Infusion Sodium Chloride (Sodium Chloride 3%) 500 mls @ 60 mls/hr IV .[id number] [facility] Last Admin: 07/09/20 00:10 Dose: 60 mls/hr Documented by: Piperacillin Sod/Tazobactam (Sod 3.375 gm/ Sodium Chloride) 50 mls @ 12.5 mls/hr IV Q8 [facility] Last Admin: 07/09/20 05:36 Dose: 12.5 mls/hr Documented by: Loperamide HCl (Loperamide 2 Mg Capsule) 2 mg PO Q4H PRN PRN PRN Reason: LOOSE STOOLS Lorazepam (Lorazepam 1 Mg Tablet) 2 mg PO Q2H PRN PRN; Protocol PRN Reason: CIWA score > 8 but <15 Lorazepam (Lorazepam 1 Mg Tablet) 2 mg PO UD PRN; Protocol PRN Reason: CIWA score >/=15. Lorazepam (Lorazepam 2 Mg/Ml Syringe) 2 mg IV Q2H PRN PRN; Protocol PRN Reason: CIWA score > 8 but <15 Last Admin: 07/09/20 04:15 Dose: 2 mg Documented by: Lorazepam (Lorazepam 2 Mg/Ml Syringe) 2 mg IV UD PRN; Protocol PRN Reason: CIWA score >/=15. Melatonin (Melatonin 3 Mg Tablet) 3 mg PO QHS PRN PRN PRN Reason: INSOMNIA Morphine Sulfate (Morphine 2 Mg/Ml Syringe) 2 mg IV Q3H PRN PRN PRN Reason: Pain Score 6-10 Multivitamins/Minerals (Multivitamins,Ther W-Minerals Tablet) 1 tablet PO DAILYCM KO Nicotine (Nicotine 21 Mg Patch) 21 mg TRANSDERM. DAILY KO Ondansetron HCl (Ondansetron 8 Mg Tablet) 8 mg PO Q8H PRN PRN PRN Reason: NAUSEA Ondansetron HCl (Ondansetron 4 Mg/2 Ml Vial) 4 mg IV Q8H PRN PRN PRN Reason: NAUSEA/VOMITING Oxycodone HCl (Oxycodone 5 Mg Tablet) 5 mg PO Q4H PRN PRN PRN Reason: Pain Score 4-5 Phenobarbital (Phenobarbital 32.4 Mg Tablet) 97.2 mg PO Q4H KO; Taper Stop: 07/13/20 07:29 Last Admin: 07/09/20 02:47 Dose: 97.2 mg Documented by: Potassium Phos/Sodium Phos (Na Biphos/Potassium Phosphate Packet) 1 packet PO 4X/DAY KO Prochlorperazine Edisylate (Prochlorperazine 10 Mg/2 Ml Vial) 5 mg IV Q4H PRN PRN PRN Reason: Breakthrough Nausea/Vomiting Senna (Senna Tablet) 2 tablet PO QHS PRN PRN Reason: Constipation Sodium Chloride (0.9% Saline Lock 10 Ml Syringe) 10 - 40 ml IV UD PRN PRN Reason: SALINE FLUSH Last Admin: 07/09/20 04:15 Dose: 10 ml Documented by: Thiamine HCl (Thiamine Hydrochloride 100 Mg Tablet) 100 mg PO BIDCM KO Stop: 07/11/20 17:01 Throat Lozenges (Benzocaine/Menthol 1 Lozenge) 1 lozenge MUCOUS MEM Q2H PRN PRN PRN Reason: SORE THROAT Assessment/Plan Active and Suspected Problems Hyponatremia (Acute) Scalp laceration (Acute) Hypokalemia (Acute) Seizure (Acute) Seizure (Acute) Alcohol withdrawal (Acute) Hypokalemia (Acute) Elevated LFTs (Acute) Thrombocytopenia (Acute) RECOMMENDATIONS: 1. Discontinue hypertonic saline. 2. Recheck sodium level in 2 hours. 3. Antimicrobials can be discontinued from my perspective. 4. Continue phenobarb taper along with Ativan for alcohol withdrawal symptoms. 5. Continue thiamine and folate. 6. Continue nicotine replacement therapy. IMPRESSIONS: 1. Hyponatremia with witnessed seizure activity The patient was initially treated with hypertonic saline with sodium that is improved to 121 as of this morning. Therefore, the hypertonic saline was discontinued. Recommend rechecking a sodium level in approximately 2 hours. Avoid correcting the sodium level more than 8 in the first 24 hours. Continue seizure precautions. 2. Acute alcohol withdrawal The patient is now demonstrating signs of alcohol withdrawal and will be maintained on CIWA protocol with phenobarbital taper, as needed Ativan, thiamine and folate. If his symptoms worsen, Precedex will be initiated. 3. Hypokalemia/hypophosphatemia Recheck BMP, mag and phosphorus this afternoon. Aggressive electrolyte repletion as needed. 4. Thrombocytopenia Likely secondary to chronic alcohol dependency. Continue to monitor daily. 5. Hypertension/hyperlipidemia/chronic tobacco dependency/mechanical fall Complicates care, management, recovery and prognosis. The patient is currently n.p.o., pending improvement in mentation. Continue nicotine replacement therapy. This note was generated with [employer]IN dictation software. It may contain incorrect words, spelling, and punctuation that were not noted in checking the note before signing. Inpatient E&M: 31596 Init Hosp L3
[2020-07-09] MEDS: Thiamine Hydrochloride 100 MG Tablet PO (09:15)
[2020-07-09] MEDS: Folic Acid 1 MG Tablet PO (09:15)
[2020-07-09] MEDS: Multivitamins,Ther W-Minerals Tablet 1 TABLET PO (09:16)
[2020-07-09] MEDS: Na Biphos/Potassium Phosphate PACKET 1 PACKET PO ×2 (09:16→13:48)
[2020-07-09] MEDS: amLODIPine 5 MG Tablet PO (09:17)
[2020-07-09] MEDS: Acyclovir 200 MG Capsule 400 MG PO (09:17)
[2020-07-09 10:41] LABS: Sodium Level 124 mmol/L (136-145)
--- NOTE | 2020-07-09 11:46 | CASEMGMT ---
Social Work SW attended interdisciplinary rounds. Pt does have a history of ETOH with reporting pt drinks 18-24 Beers daily. SW will follow up with pt for ETOH resources however, pt not stable enough at this time to have a conversation about ETOH. MYNOR Aguilar
--- NOTE | 2020-07-09 11:48 | PN_ITS ---
Patient Problems: Active and Suspected Problems Hyponatremia (Acute) Scalp laceration (Acute) Hypokalemia (Acute) Seizure (Acute) Seizure (Acute) Alcohol withdrawal (Acute) Hypokalemia (Acute) Elevated LFTs (Acute) Thrombocytopenia (Acute) Subjective: Patient seen and examined. He was admitted after he had a seizure. He was initi ally seen in the ED after he was found on the ground in the garage, with a laceration at the back of his head. He had a history of chronic alcoholism. He wanted to leave the ED AMA, but had the seizure whilst waiting for his to pick him up. He was found to be severely hyponatremic, and received 3% hypertonic saline overnight. Patient seen in ICU today. He was lethargic and not very responsive. Review of systems otherwise negative. Sodium today is 124, and potassium is 3.4, with bilirubin up 2. Hemoglobin has dropped to 10.1. Vitals/I&O's: Vital Signs Temp Pulse Resp BP Pulse Ox 98.1 F 80 20 H 128/78 H 96 07/09/20 08:00 07/09/20 11:33 07/09/20 11:00 07/09/20 11:00 07/09/20 11:00 Oxygen Delivery Method Room Air Weight: 177 lb 14.609 oz Body Mass Index (BMI) 25.4 Intake and Output for Last 24 Hours 07/07/20 07/08/20 07/09/20 23:59 23:59 23:59 Intake Total 333.2 / 333.2 1259 / 1259 Output Total 400 / 400 Balance 333.2 / 333.2 859 / 859 General: Lethargic HEENT: Atraumatic, PERRLA, EOMI, Normocephalic Oral: Dry Mucosa Neck: Supple, No JVD, Negative Carotid Bruits Lungs: Clear to auscultation, Normal air movement, No rhonchi, No wheeze Cardiovascular: Regular rate, Regular Rhythm, Normal S1, Normal S2, No murmurs Abdomen: Bowel Sounds Present, Soft, Non Tender, Non-Distended, No Hepato- splenomegaly Extremities: No clubbing, No cyanosis, No edema, Capillary Refill Less than 3 Seconds Skin: No rashes, No breakdown Musculoskeletal: No Tenderness to Palpation of Joints or Extremities Lymphatic: No Cervical, Supraclavicular, or Inguinal Adenopathy Neurological: Cranial nerves II-XII grossly intact, - - lethargic, Laboratory Results 07/08/20 17:00: WBC 7.1, RBC 4.38 L, Hgb 14.1, Hct 38.2 L, MCV 87.2, MCH 32.2 H, MCHC 36.9 H, RDW Std Deviation 35.0 L, RDW Coeff of Sheryl 11.0 L, Plt Count 147 L, MPV 10.1, Immature Gran % (Auto) 0.700, Neut % (Auto) 80.6 H, Lymph % (Auto) 8.8 L, Frontier % (Auto) 9.5, Eos % (Auto) 0.3, Baso % (Auto) 0.1, Absolute Neuts (auto) 5.8, Absolute Lymphs (auto) 0.63 L, Nucleated RBC % 0 07/08/20 17:00: Sodium 112 L*, Potassium 2.6 L*, Chloride 67 L*, Carbon Dioxide 29.0, Anion Gap 16 H, BUN 19 H, Creatinine 1.06, Estim Creat Clear Calc 85.84, Est GFR (MDRD) Af Amer 94, Est GFR (MDRD) Non-Af 77, BUN/Creatinine Ratio 17.9, Glucose 93, Calcium 8.7, Total Bilirubin 1.60 H, AST 56 H, ALT 62 H, Alkaline Phosphatase 88, Troponin I < 0.015, Total Protein 7.9, Albumin 4.0, Globulin 3.9, Albumin/Globulin Ratio 1.0 07/08/20 17:00: Ethyl Alcohol 47.0 07/08/20 17:00: Total Creatine Kinase 251 07/08/20 17:00: Magnesium 2.0 07/08/20 23:30: Sodium 115 L*, Potassium 3.0 L, Chloride 76 L, Carbon Dioxide 28.0, Anion Gap 11, BUN 19 H, Creatinine 1.02, Estim Creat Clear Calc 89.20, Est GFR (MDRD) Af Amer 98, Est GFR (MDRD) Non-Af 81, BUN/Creatinine Ratio 18.6, Glucose 96, Calcium 8.5, TSH 1.49 07/08/20 23:30: Phosphorus 2.4 L 07/09/20 00:35: Urine Opiates Screen NEGATIVE, Urine Methadone Screen NEGATIVE, Ur Barbiturates Screen NEGATIVE, Ur Phencyclidine Scrn NEGATIVE, Ur Amphetamines Screen NEGATIVE, U Methamphetamin-MDMA NEGATIVE, U Benzodiazepines Scrn NEGATIVE, Urine Cocaine Screen NEGATIVE, U Cannabinoids Screen NEGATIVE, Ur Drug Screen Comment 07/09/20 00:35: Urine Osmolality 379, Ur Random Sodium 8, Urine Creatinine 79.70 07/09/20 01:30: Sodium 116 L*, Potassium 3.2 L, Chloride 79 L, Carbon Dioxide 28.0, Anion Gap 9, BUN 18, Creatinine 0.98, Estim Creat Clear Calc 92.84, Est GFR (MDRD) Af Amer 103, Est GFR (MDRD) Non-Af 85, BUN/Creatinine Ratio 18.4, Glucose 98, Calcium 8.3 L 07/09/20 04:50: Sodium 121 L, Potassium 3.4 L, Chloride 87 L, Carbon Dioxide 25.0, Anion Gap 9, BUN 16, Creatinine 0.95, Estim Creat Clear Calc 95.78, Est GFR (MDRD) Af Amer 107, Est GFR (MDRD) Non-Af 88, BUN/Creatinine Ratio 16.9, Glucose 97, Calcium 7.8 L, Total Bilirubin 2.00 H, AST 49 H, ALT 48, Alkaline Phosphatase 77, Total Protein 6.8, Albumin 3.4, Globulin 3.4, Albumin/Globulin Ratio 1.0 07/09/20 04:50: WBC 6.7, RBC 3.20 L, Hgb 10.1 L, Hct 28.2 L, MCV 88.1, MCH 31.6, MCHC 35.8, RDW Std Deviation 36.2, RDW Coeff of Sheryl 11.1 L, Plt Count 100 L, MPV 9.6, Immature Gran % (Auto) 0.300, Neut % (Auto) 86.5 H, Lymph % (Auto) 3.0 L, Frontier % (Auto) 10.2 H, Eos % (Auto) 0.0, Baso % (Auto) 0.0, Absolute Neuts (auto) 5.8, Absolute Lymphs (auto) 0.20 L, Nucleated RBC % 0, Differential Comment SCANNED 07/09/20 10:00: Sodium 124 L Diagnostic Data Brain CT 07/08/20 17:31 IMPRESSION: Soft tissue swelling, otherwise negative unenhanced CT scan of the brain. Electronically Signed: Ade Marie MD at 18:40 EST Tel , Service support , Cervical Spine CT 07/08/20 17:32 IMPRESSION: 1. This study is slightly limited due to patient motion. There is no demonstrated fracture. Subtle, nondisplaced fracture could be missed. If there is continued clinical suspicion, consider repeat study when the patient is able to tolerate the procedure. 2. Mild degenerative changes, detailed above. Electronically Signed: Ade Marie MD at 18:48 EST Tel , Service support , Chest X-Ray 07/09/20 05:55 IMPRESSION: No acute abnormality is seen. Electronically Signed: Alessio Wayne, at 9:45 EST , Service support , Current Medications Acetaminophen (Acetaminophen 500 Mg Tablet) 500 mg PO Q4H PRN PRN PRN Reason: Temp > 100.4 F Al Hydroxide/Mg Hydroxide (Mag Hydrox/Al Hydrox/Simeth 30 Ml Udc) 30 ml PO Q6H PRN PRN PRN Reason: dyspesia Albuterol Sulfate (Albuterol 2.5 Mg/3 Ml Vial.Neb.) 2.5 mg INHALATION Q2H PRN PRN PRN Reason: Dyspnea, wheezing Amlodipine Besylate (Amlodipine 5 Mg Tablet) 5 mg PO DAILY [facility] Last Admin: 07/09/20 09:17 Dose: 5 mg Documented by: Atorvastatin Calcium (Atorvastatin Calcium 80 Mg Tablet) 80 mg PO QHS [facility] Last Admin: 07/09/20 00:17 Dose: 80 mg Documented by: Bisacodyl (Bisacodyl 10 Mg Suppository) 10 mg RECTAL DAILY PRN PRN Reason: Constipation Dicyclomine HCl (Dicyclomine 10 Mg Capsule) 20 mg PO Q6H PRN PRN PRN Reason: abdominal discomfort Famotidine (Famotidine 20 Mg Tablet) 20 mg PO BID [facility] Last Admin: 07/09/20 09:16 Dose: 20 mg Documented by: Folic Acid (Folic Acid 1 Mg Tablet) 1 mg PO DAILY@0800 [facility] Stop: 07/11/20 08:01 Last Admin: 07/09/20 09:15 Dose: 1 mg Documented by: Gabapentin (Gabapentin 300 Mg Capsule) 300 mg PO Q8H PRN PRN PRN Reason: moderate to severe anxiety Guaifenesin (Guaifenesin 10 Ml Udc (200mg/10ml)) 10 ml PO Q4H PRN PRN PRN Reason: COUGH Hydralazine HCl (Hydralazine 20 Mg/Ml Vial) 10 mg IV Q4H PRN PRN PRN Reason: SBP > 160 Hydroxyzine Pamoate (Hydroxyzine Freya 25 Mg Capsule) 50 mg PO Q4H PRN PRN PRN Reason: mild anxiety Sodium Chloride () 250 mls @ 15 mls/hr IV .[id number] PRN PRN Reason: Saline Flush Sodium Chloride () 250 mls @ 15 mls/hr IV .[id number] PRN PRN Reason: Additional IVPB Infusion Loperamide HCl (Loperamide 2 Mg Capsule) 2 mg PO Q4H PRN PRN PRN Reason: LOOSE STOOLS Lorazepam (Lorazepam 1 Mg Tablet) 2 mg PO Q2H PRN PRN; Protocol PRN Reason: CIWA score > 8 but <15 Lorazepam (Lorazepam 1 Mg Tablet) 2 mg PO UD PRN; Protocol PRN Reason: CIWA score >/=15. Lorazepam (Lorazepam 2 Mg/Ml Syringe) 2 mg IV Q2H PRN PRN; Protocol PRN Reason: CIWA score > 8 but <15 Last Admin: 07/09/20 04:15 Dose: 2 mg Documented by: Lorazepam (Lorazepam 2 Mg/Ml Syringe) 2 mg IV UD PRN; Protocol PRN Reason: CIWA score >/=15. Melatonin (Melatonin 3 Mg Tablet) 3 mg PO QHS PRN PRN PRN Reason: INSOMNIA Morphine Sulfate (Morphine 2 Mg/Ml Syringe) 2 mg IV Q3H PRN PRN PRN Reason: Pain Score 6-10 Multivitamins/Minerals (Multivitamins,Ther W-Minerals Tablet) 1 tablet PO DAILYCM [facility] Last Admin: 07/09/20 09:16 Dose: 1 tablet Documented by: Nicotine (Nicotine 21 Mg Patch) 21 mg TRANSDERM. DAILY [facility] Last Admin: 07/09/20 09:17 Dose: 21 mg Documented by: Ondansetron HCl (Ondansetron 8 Mg Tablet) 8 mg PO Q8H PRN PRN PRN Reason: NAUSEA Ondansetron HCl (Ondansetron 4 Mg/2 Ml Vial) 4 mg IV Q8H PRN PRN PRN Reason: NAUSEA/VOMITING Oxycodone HCl (Oxycodone 5 Mg Tablet) 5 mg PO Q4H PRN PRN PRN Reason: Pain Score 4-5 Phenobarbital (Phenobarbital 32.4 Mg Tablet) 97.2 mg PO Q4H [facility]; Taper Stop: 07/13/20 07:29 Last Admin: 07/09/20 09:15 Dose: 97.2 mg Documented by: Potassium Phos/Sodium Phos (Na Biphos/Potassium Phosphate Packet) 1 packet PO 4X/DAY [facility] Last Admin: 07/09/20 09:16 Dose: 1 packet Documented by: Prochlorperazine Edisylate (Prochlorperazine 10 Mg/2 Ml Vial) 5 mg IV Q4H PRN PRN PRN Reason: Breakthrough Nausea/Vomiting Senna (Senna Tablet) 2 tablet PO QHS PRN PRN Reason: Constipation Sodium Chloride (0.9% Saline Lock 10 Ml Syringe) 10 - 40 ml IV UD PRN PRN Reason: SALINE FLUSH Last Admin: 07/09/20 04:15 Dose: 10 ml Documented by: Thiamine HCl (Thiamine Hydrochloride 100 Mg Tablet) 100 mg PO BIDCM [facility] Stop: 07/11/20 17:01 Last Admin: 07/09/20 09:15 Dose: 100 mg Documented by: Throat Lozenges (Benzocaine/Menthol 1 Lozenge) 1 lozenge MUCOUS MEM Q2H PRN PRN PRN Reason: SORE THROAT STROKE Vital Signs/Narrative: Vital Signs Temp Pulse Resp BP Pulse Ox 07/09/20 11:33 80 07/09/20 11:00 81 20 H 128/78 H 96 07/09/20 10:00 82 20 H 152/78 H 96 07/09/20 09:00 83 18 140/123 H 98 07/09/20 08:00 98.1 F 80 18 133/82 H 95 Medical Necessity - Tobacco Use Smoking Status: Current every day smoker Tobacco Use: Chew Assessment/Plan All Active Problems Hyponatremia (Acute) Right inguinal hematoma (Acute) Dizziness (Acute) Scalp laceration (Acute) Hypokalemia (Acute) Seizure (Acute) Seizure (Acute) Alcohol withdrawal (Acute) Hypokalemia (Acute) Elevated LFTs (Acute) Thrombocytopenia (Acute) #Acute hyponatremia * thought to be due to beer potomania and hypovolemia. also had a new onset * received 3% hypertonic saline * nephrology on board * sodium is 124 * critical care on board. * hypertonic saline stopped now * #Seizure * Seizure was thought to be due to hyponatremia and probable alcohol withdrawal. Currently on phenobarbital withdrawal protocol. * Seizure precautions. * * #Acute alcohol withdrawal * Has a history of chronic alcohol abuse and drinks about 18 to 24 cans of beer daily. * On alcohol withdrawal protocol with phenobarbital. On thiamine, folate and multivitamin. * Low threshold for starting Precedex if his condition worsens. * #Hypokalemia and hypophosphatemia: Replace as needed. #Thrombocytopenia: Likely due to chronic alcohol use. Continue to monitor. #Scalp laceration due to mechanical fall: stable. #Hypertension: On Norvasc. Hydrochlorothiazide on hold on account of hyponatremia. #Hyperlipidemia: On statin #Nicotine dependence: Counseled to quit. Nicotine patch 21 mg daily. #Prophylaxis: SCDs 1607: Patient became arousable,and insisted on leaving AGAINST MEDICAL ADVICE. Patient therefore left AGAINST MEDICAL ADVICE. Inpatient E&M: [id number] [facility]
[2020-07-09 12:46] LABS: Anion Gap 9 (5-15); BUN 15 mg/dL (7-18); BUN/Creat Ratio 16.2 RATIO (10-20); Calcium,Total 8.1 mg/dL (8.5-10.1); Chloride 89 mmol/L (98-107); Creatinine, Serum 0.93 mg/dL (0.70-1.30); EST Glomerular Filtration Rate 91 mL/min (>60); Est Glom Filt Rate - Afr Amer 110 mL/min (>60); Estimated Creatinine Clearance 97.84 ml/min; Glucose 100 mg/dL (74-106); Magnesium 2.4 mg/dL (1.6-2.6); Phosphorus 1.9 mg/dL (2.5-4.9); Potassium 2.9 mmol/L (3.5-5.1); Sodium Level 125 mmol/L (136-145)
--- NOTE | 2020-07-09 16:14 | DS.PCM_ITS ---
Discharge Date and Diagnosis - Problem List Patient Problems: Active and Suspected Problems Hyponatremia (Acute) Scalp laceration (Acute) Hypokalemia (Acute) Seizure (Acute) Seizure (Acute) Alcohol withdrawal (Acute) Hypokalemia (Acute) Elevated LFTs (Acute) Thrombocytopenia (Acute) Date of Admission: 07/08/20 Date of Discharge: 07/09/20 - Primary Discharge Diagnosis Acute Problems: Active Problems Hyponatremia (Acute) Scalp laceration (Acute) Hypokalemia (Acute) Seizure (Acute) Seizure (Acute) Alcohol withdrawal (Acute) Hypokalemia (Acute) Elevated LFTs (Acute) Thrombocytopenia (Acute) - Secondary Discharge Diagnosis Chronic Problems: Chronic Problems CHRONIC ALCOHOL USE DEPENDENCE (Chronic) Electrolyte abnormality (Chronic) Hypertension (Chronic) HTN (hypertension) (Chronic) HLD (hyperlipidemia) (Chronic) Tobacco use (Chronic) Hospital Course and Treatment Imaging Results: Diagnostic Data Brain CT 07/08/20 17:31 IMPRESSION: Soft tissue swelling, otherwise negative unenhanced CT scan of the brain. Electronically Signed: Ade Marie MD at 18:40 EST Tel , Service support , Cervical Spine CT 07/08/20 17:32 IMPRESSION: 1. This study is slightly limited due to patient motion. There is no demonstrated fracture. Subtle, nondisplaced fracture could be missed. If there is continued clinical suspicion, consider repeat study when the patient is able to tolerate the procedure. 2. Mild degenerative changes, detailed above. Electronically Signed: Ade Marie MD at 18:48 EST Tel , Service support , Chest X-Ray 07/09/20 05:55 IMPRESSION: No acute abnormality is seen. Electronically Signed: Alessio Wyane, at 9:45 EST , Service support , critical care- Dr Rasmussen Operations: None, - Procedures: None Summary of Care Provided: The patient is a 54 year old M with a past medical history as outlined below which includes hypertension, hyperlipidemia, and chronic alcohol abuse. He was admitted through the ED on 07/08/2020 after he was found on the floor by his in his garage. He had reportedly fallen and struck the back of his head. According to his , patient drank about 18-24 beers daily. He was brought into the ED where he was found to have sodium of 09/05/2011 with potassium of 2.6, chloride of 67 and creatinine of 1.06. Total bilirubin was also mildly elevated and AST and ALT were also minimally elevated. Troponin was negative and tox screen was negative. Alcohol level was 47. CT of the head showed soft tissue swelling at any acute intracranial abnormality and he required sutures the laceration on his head. Patient subsequently requested to leave the ED AGAINST MEDICAL ADVICE. Was waiting for his to pick him up, patient had a seizure whilst exiting the ED. This was a witnessed seizure. He was brought back to the ED and admitted and managed for acute metabolic encephalopathy and seizure due to acute hyponatremia and probable alcohol withdrawal. Nephrology was consulted and he was placed on hypertonic saline. He was placed on alcohol withdrawal protocol with phenobarbital. He was also hypokalemic and hypophosphatemic and these were replaced as needed. He was also noted to be thrombocytopenic which was chronic and was thought to be due to alcohol abuse. Sodium increased gradually and was 124 at time of patient leaving AMA. Whilst patient was in the ICU, he became more arousable and then insisted on signing out AGAINST MEDICAL ADVICE. Despite counseling about his critical state with his low sodium and risk of alcohol withdrawal, patient insisted on signing out AGAINST MEDICAL ADVICE and left on 07/09/2020. Patient was seen and examined prior to discharge. He was initially more somnolent but became arousable subsequently and had no complaints. Review of symptoms otherwise negative. Labs and vitals reviewed. Home medication reviewed and reconciled. O/E: Vital Signs Temp Pulse Resp BP Pulse Ox 98.4 F 81 17 138/91 H 96 07/09/20 12:00 07/09/20 14:00 07/09/20 14:00 07/09/20 14:00 07/09/20 14:00 [] General: alert but lethargic HEENT: Atraumatic, PERRLA, EOMI, Normocephalic Oral: Dry Mucosa Neck: Supple, No JVD, Negative Carotid Bruits Lungs: Clear to auscultation, Normal air movement, No rhonchi, No wheeze Cardiovascular: Regular rate, Regular Rhythm, Normal S1, Normal S2, No murmurs Abdomen: Bowel Sounds Present, Soft, Non Tender, Non-Distended, No Hepato- splenomegaly Extremities: No clubbing, No cyanosis, No edema, Capillary Refill Less than 3 Seconds Skin: No rashes, No breakdown Musculoskeletal: No Tenderness to Palpation of Joints or Extremities Lymphatic: No Cervical, Supraclavicular, or Inguinal Adenopathy Neurological: Cranial nerves II-XII grossly intact, - - lethargic, Patient signed out AGAINST MEDICAL ADVICE. Patient Problems: Active and Suspected Problems Hyponatremia (Acute) Scalp laceration (Acute) Hypokalemia (Acute) Seizure (Acute) Seizure (Acute) Alcohol withdrawal (Acute) Hypokalemia (Acute) Elevated LFTs (Acute) Thrombocytopenia (Acute) - Physical Exam Vitals/I&O's: Vital Signs Temp Pulse Resp BP Pulse Ox 98.4 F 81 17 138/91 H 96 07/09/20 12:00 07/09/20 14:00 07/09/20 14:00 07/09/20 14:00 07/09/20 14:00 Oxygen Delivery Method Room Air Weight: 177 lb 14.609 oz Body Mass Index (BMI) 25.4 Intake and Output for Last 24 Hours 07/07/20 07/08/20 07/09/20 23:59 23:59 23:59 Intake Total 333.2 / 333.2 1459 / 1459 Output Total 1000 / 1000 Balance 333.2 / 333.2 459 / 459 Laboratory Results 07/08/20 17:00: WBC 7.1, RBC 4.38 L, Hgb 14.1, Hct 38.2 L, MCV 87.2, MCH 32.2 H, MCHC 36.9 H, RDW Std Deviation 35.0 L, RDW Coeff of Sheryl 11.0 L, Plt Count 147 L , MPV 10.1, Immature Gran % (Auto) 0.700, Neut % (Auto) 80.6 H, Lymph % (Auto) 8.8 L, [place] % (Auto) 9.5, Eos % (Auto) 0.3, Baso % (Auto) 0.1, Absolute Neuts (auto) 5.8, Absolute Lymphs (auto) 0.63 L, Nucleated RBC % 0 07/08/20 17:00: Sodium 112 L*, Potassium 2.6 L*, Chloride 67 L*, Carbon Dioxide 29.0, Anion Gap 16 H, BUN 19 H, Creatinine 1.06, Estim Creat Clear Calc 85.84, Est GFR (MDRD) Af Amer 94, Est GFR (MDRD) Non-Af 77, BUN/Creatinine Ratio 17.9, Glucose 93, Calcium 8.7, Total Bilirubin 1.60 H, AST 56 H, ALT 62 H, Alkaline Phosphatase 88, Troponin I < 0.015, Total Protein 7.9, Albumin 4.0, Globulin 3.9, Albumin/Globulin Ratio 1.0 07/08/20 17:00: Ethyl Alcohol 47.0 07/08/20 17:00: Total Creatine Kinase 251 07/08/20 17:00: Magnesium 2.0 07/08/20 23:30: Sodium 115 L*, Potassium 3.0 L, Chloride 76 L, Carbon Dioxide 28.0, Anion Gap 11, BUN 19 H, Creatinine 1.02, Estim Creat Clear Calc 89.20, Est GFR (MDRD) Af Amer 98, Est GFR (MDRD) Non-Af 81, BUN/Creatinine Ratio 18.6, Glucose 96, Calcium 8.5, TSH 1.49 07/08/20 23:30: Phosphorus 2.4 L 07/09/20 00:35: Urine Opiates Screen NEGATIVE, Urine Methadone Screen NEGATIVE, Ur Barbiturates Screen NEGATIVE, Ur Phencyclidine Scrn NEGATIVE, Ur Amphetamines Screen NEGATIVE, U Methamphetamin-MDMA NEGATIVE, U Benzodiazepines Scrn NEGATIVE, Urine Cocaine Screen NEGATIVE, U Cannabinoids Screen NEGATIVE, Ur Drug Screen Comment 07/09/20 00:35: Urine Osmolality 379, Ur Random Sodium 8, Urine Creatinine 79.70 07/09/20 01:30: Sodium 116 L*, Potassium 3.2 L, Chloride 79 L, Carbon Dioxide 28.0, Anion Gap 9, BUN 18, Creatinine 0.98, Estim Creat Clear Calc 92.84, Est GFR (MDRD) Af Amer 103, Est GFR (MDRD) Non-Af 85, BUN/Creatinine Ratio 18.4, Glucose 98, Calcium 8.3 L 07/09/20 04:50: Sodium 121 L, Potassium 3.4 L, Chloride 87 L, Carbon Dioxide 25.0, Anion Gap 9, BUN 16, Creatinine 0.95, Estim Creat Clear Calc 95.78, Est GFR (MDRD) Af Amer 107, Est GFR (MDRD) Non-Af 88, BUN/Creatinine Ratio 16.9, Glucose 97, Calcium 7.8 L, Total Bilirubin 2.00 H, AST 49 H, ALT 48, Alkaline Phosphatase 77, Total Protein 6.8, Albumin 3.4, Globulin 3.4, Albumin/Globulin Ratio 1.0 07/09/20 04:50: WBC 6.7, RBC 3.20 L, Hgb 10.1 L, Hct 28.2 L, MCV 88.1, MCH 31.6, MCHC 35.8, RDW Std Deviation 36.2, RDW Coeff of Sheryl 11.1 L, Plt Count 100 L, MPV 9.6, Immature Gran % (Auto) 0.300, Neut % (Auto) 86.5 H, Lymph % (Auto) 3.0 L, [place] % (Auto) 10.2 H, Eos % (Auto) 0.0, Baso % (Auto) 0.0, Absolute Neuts (auto) 5.8, Absolute Lymphs (auto) 0.20 L, Nucleated RBC % 0, Differential Comment SCANNED 07/09/20 10:00: Sodium 124 L 07/09/20 12:15: Sodium 125 L, Potassium 2.9 L, Chloride 89 L, Carbon Dioxide 27.0, Anion Gap 9, BUN 15, Creatinine 0.93, Estim Creat Clear Calc 97.84, Est GFR (MDRD) Af Amer 110, Est GFR (MDRD) Non-Af 91, BUN/Creatinine Ratio 16.2, Glucose 100, Calcium 8.1 L, Phosphorus 1.9 L, Magnesium 2.4 Current Medications Acetaminophen (Acetaminophen 500 Mg Tablet) 500 mg PO Q4H PRN PRN PRN Reason: Temp > 100.4 F Albuterol Sulfate (Albuterol 2.5 Mg/3 Ml Vial.Neb.) 2.5 mg INHALATION Q2H PRN PRN PRN Reason: Dyspnea, wheezing Amlodipine Besylate (Amlodipine 5 Mg Tablet) 5 mg PO DAILY KO Last Admin: 07/09/20 09:17 Dose: 5 mg Documented by: Atorvastatin Calcium (Atorvastatin Calcium 80 Mg Tablet) 80 mg PO QHS [facility] Last Admin: 07/09/20 00:17 Dose: 80 mg Documented by: Bisacodyl (Bisacodyl 10 Mg Suppository) 10 mg RECTAL DAILY PRN PRN Reason: Constipation Dicyclomine HCl (Dicyclomine 10 Mg Capsule) 20 mg PO Q6H PRN PRN PRN Reason: abdominal discomfort Famotidine (Famotidine 20 Mg Tablet) 20 mg PO BID [facility] Last Admin: 07/09/20 09:16 Dose: 20 mg Documented by: Folic Acid (Folic Acid 1 Mg Tablet) 1 mg PO DAILY@0800 [facility] Stop: 07/11/20 08:01 Last Admin: 07/09/20 09:15 Dose: 1 mg Documented by: Hydralazine HCl (Hydralazine 20 Mg/Ml Vial) 10 mg IV Q4H PRN PRN PRN Reason: SBP > 160 Hydroxyzine Pamoate (Hydroxyzine Freya 25 Mg Capsule) 50 mg PO Q4H PRN PRN PRN Reason: mild anxiety Sodium Chloride () 250 mls @ 15 mls/hr IV .[id number] PRN PRN Reason: Saline Flush Sodium Chloride () 250 mls @ 15 mls/hr IV .[id number] PRN PRN Reason: Additional IVPB Infusion Potassium Chloride () 10 meq in 100 mls @ 100 mls/hr IV BOLUS Q1H [facility] Stop: 07/09/20 18:59 Last Admin: 07/09/20 15:22 Dose: Not Given Documented by: Potassium Chloride () 10 meq in 100 mls @ 100 mls/hr IV BOLUS Q1H [facility] Stop: 07/09/20 22:59 Potassium Phosphate 30 mm/ (Sodium Chloride) 260 mls @ 42 mls/hr IV X1 ONE Stop: 07/09/20 20:41 Last Admin: 07/09/20 15:22 Dose: Not Given Documented by: Loperamide HCl (Loperamide 2 Mg Capsule) 2 mg PO Q4H PRN PRN PRN Reason: LOOSE STOOLS Lorazepam (Lorazepam 1 Mg Tablet) 2 mg PO Q2H PRN PRN; Protocol PRN Reason: CIWA score > 8 but <15 Lorazepam (Lorazepam 1 Mg Tablet) 2 mg PO UD PRN; Protocol PRN Reason: CIWA score >/=15. Lorazepam (Lorazepam 2 Mg/Ml Syringe) 2 mg IV Q2H PRN PRN; Protocol PRN Reason: CIWA score > 8 but <15 Last Admin: 07/09/20 04:15 Dose: 2 mg Documented by: Lorazepam (Lorazepam 2 Mg/Ml Syringe) 2 mg IV UD PRN; Protocol PRN Reason: CIWA score >/=15. Multivitamins/Minerals (Multivitamins,Ther W-Minerals Tablet) [facility] Last Admin: 07/09/20 09:16 Dose: 1 tablet Documented by: Nicotine (Nicotine 21 Mg Patch) 21 mg TRANSDERM. DAILY [facility] Last Admin: 07/09/20 09:17 Dose: 21 mg Documented by: Phenobarbital (Phenobarbital 32.4 Mg Tablet) 97.2 mg PO Q4H [facility]; Taper Stop: 07/13/20 07:29 Last Admin: 07/09/20 15:22 Dose: Not Given Documented by: Potassium Phos/Sodium Phos (Na Biphos/Potassium Phosphate Packet) 1 packet PO 4X/DAY [facility] Last Admin: 07/09/20 13:48 Dose: 1 packet Documented by: Prochlorperazine Edisylate (Prochlorperazine 10 Mg/2 Ml Vial) 5 mg IV Q4H PRN PRN PRN Reason: Breakthrough Nausea/Vomiting Senna (Senna Tablet) 2 tablet PO QHS PRN PRN Reason: Constipation Sodium Chloride (0.9% Saline Lock 10 Ml Syringe) 10 - 40 ml IV UD PRN PRN Reason: SALINE FLUSH Last Admin: 07/09/20 04:15 Dose: 10 ml Documented by: Thiamine HCl (Thiamine Hydrochloride 100 Mg Tablet) 100 mg PO BIDCM [facility] Stop: 07/11/20 17:01 Last Admin: 07/09/20 09:15 Dose: 100 mg Documented by: Throat Lozenges (Benzocaine/Menthol 1 Lozenge) 1 lozenge MUCOUS MEM Q2H PRN PRN PRN Reason: SORE THROAT Discharge Diet: Low fat/ Low Cholesterol Home Medications: Medications to take at Discharge Amlodipine Besylate [Norvasc] 5 mg PO DAILY 03/11/19 Fluticasone Propionate [Flovent Diskus] 50 mcg IH DAILY 03/11/19 Hydrochlorothiazide [Hctz] 25 mg PO DAILY 03/11/19 Naltrexone HCl 100 mg PO DAILY 03/11/19 Potassium Gluconate 99 meq PO DAILY 03/11/19 Rosuvastatin Calcium 40 mg PO QHS 03/11/19 Valacyclovir HCl [Valacyclovir] 1,000 mg PO DAILY PRN 03/11/19 Cetirizine HCl 10 mg PO DAILY 07/09/20 Cholecalciferol (Vitamin D3) [Vitamin D3] 1 tab PO DAILY 07/09/20 Citalopram [Celexa] 40 mg PO DAILY 07/09/20 Cyanocobalamin (Vitamin B-12) [Vitamin B-12] 1,000 mcg PO DAILY 07/09/20 Fish Oil/Dha/Epa [Fish Oil 1,200 mg Fish Oil] 1 ea PO DAILY 07/09/20 Lisinopril 20 mg PO DAILY 07/09/20 Thiamine Mononitrate (Vit B1) [Vitamin B-1] 100 mg PO DAILY 07/09/20 hydrOXYzine tablet [Atarax tablet] 25 mg PO DAILY 07/09/20 Primary Care Physician: Rupert Coker MD [Primary Care Provider] - 7 Days for suture removal Patient Instructions: ED Head Injury Adult, ED Hyponatremia, ED Laceration Scalp Sutures or Brady Disposition: Against Medical Advice Minutes spent on discharge:: 50 Patient Condition:: Fair Medical Necessity - Tobacco Use Smoking Status: Current every day smoker Tobacco Use: Chew Meaningful Use Info Meaningful Use Diagnoses (Choose all that apply): None applicable Inpatient E&M: 85770 [facility] Hosp
== END 2020-07-09 17:18 | disposition left against medical advice (07) | DRG 641 ==
LOC: ED 19:56 → ICU 22:24
PROVIDERS: Internal Medicine Critical Care Medicine; Admitting Provider Family Medicine; Emergency Provider Emergency Medicine; PCP Family Medicine; Visit Provider Student in an Organized Health Care Education/Training Program
DX: E87.1 Hypo-osmolality and hyponatremia (principal); F10.239 Alcohol dependence with withdrawal, unspecified; I10 Essential (primary) hypertension; F17.200 Nicotine dependence, unspecified, uncomplicated; D69.6 Thrombocytopenia, unspecified; E87.6 Hypokalemia; E86.1 Hypovolemia; S01.01XA Laceration without foreign body of scalp, initial encounter; W18.30XA Fall on same level, unspecified, initial encounter; Z79.899 Other long term (current) drug therapy; Z82.5 Family history of asthma and other chronic lower respiratory diseases; Z83.3 Family history of diabetes mellitus; Y90.2 Blood alcohol level of 40-59 mg/100 ml; D69.59 Other secondary thrombocytopenia; E78.5 Hyperlipidemia, unspecified
CPT/HCPCS: 70450; 71045; 72125; 80048; 80053; 80307; 80320; 82550; 82570; 83735; 83935; 84100; 84295; 84300; 84443; 84484; 85025; 93005; 97802; 99285; 99406; J7040; J7050; A4216; G0480

== ENCOUNTER → 2020-07-11 09:00 | Outpatient (CLI) | payer MEDICAID, SELFPAY ==
[2020-07-08 23:05] VITALS: BMI 25.4
[2020-07-11 10:45] LABS: Anion Gap 5 (5-15); BUN 10 mg/dL (7-18); BUN/Creat Ratio 10.7 RATIO (10-20); Calcium,Total 9.2 mg/dL (8.5-10.1); Chloride 90 mmol/L (98-107); Creatinine, Serum 0.94 mg/dL (0.70-1.30); EST Glomerular Filtration Rate 89 mL/min (>60); Est Glom Filt Rate - Afr Amer 108 mL/min (>60); Glucose 116 mg/dL (74-106); Sodium Level 131 mmol/L (136-145)
== END ==
PROVIDERS: PCP Family Medicine; Referring Provider Family Medicine; Visit Provider Family Medicine
DX: E87.1 Hypo-osmolality and hyponatremia (principal)
CPT/HCPCS: 36415; 80048

== ENCOUNTER → 2020-07-17 08:34 | Outpatient (CLI) | payer MEDICAID, SELFPAY ==
[2020-07-08 23:05] VITALS: BMI 25.4
[2020-07-17 10:49] LABS: Anion Gap 6 (5-15); BUN 16 mg/dL (7-18); Calcium,Total 9.7 mg/dL (8.5-10.1); Chloride 96 mmol/L (98-107); Creatinine, Serum 1.14 mg/dL (0.70-1.30); EST Glomerular Filtration Rate 71 mL/min (>60); Est Glom Filt Rate - Afr Amer 86 mL/min (>60); Glucose 106 mg/dL (74-106); Potassium 4.2 mmol/L (3.5-5.1); Sodium Level 134 mmol/L (136-145)
== END ==
PROVIDERS: PCP Family Medicine; Referring Provider Family Medicine; Visit Provider Family Medicine
DX: E87.1 Hypo-osmolality and hyponatremia (principal)
CPT/HCPCS: 36415; 80048

== ENCOUNTER → 2020-07-18 15:23 | Outpatient (CLI) | payer MEDICAID, SELFPAY ==
[2020-07-08 23:05] VITALS: BMI 25.4
== END ==
PROVIDERS: PCP Family Medicine; Referring Provider Family Medicine; Visit Provider Family Medicine
DX: Z20.828 Contact with and (suspected) exposure to other viral communicable diseases (principal)
CPT/HCPCS: 87635; U0003

== ENCOUNTER → 2020-08-05 09:18 | Outpatient (CLI) | payer MEDICAID, SELFPAY ==
[2020-07-08 23:05] VITALS: BMI 25.4
[2020-08-05 10:25] LABS: Anion Gap 6 (5-15); BUN 10 mg/dL (7-18); BUN/Creat Ratio 10.1 RATIO (10-20); Calcium,Total 9.7 mg/dL (8.5-10.1); Chloride 97 mmol/L (98-107); Creatinine, Serum 0.99 mg/dL (0.70-1.30); EST Glomerular Filtration Rate 84 mL/min (>60); Est Glom Filt Rate - Afr Amer 102 mL/min (>60); Glucose 92 mg/dL (74-106); Potassium 3.7 mmol/L (3.5-5.1); Sodium Level 136 mmol/L (136-145)
== END ==
PROVIDERS: PCP Family Medicine; Visit Provider Family Medicine
DX: E87.6 Hypokalemia (principal)
CPT/HCPCS: 36415; 80048

== ENCOUNTER → 2020-09-01 11:42 | Outpatient (CLI) | payer MEDICAID, SELFPAY ==
[2020-07-08 23:05] VITALS: BMI 25.4
[2020-09-01 16:05] LABS: Anion Gap 8 (5-15); BUN 12 mg/dL (7-18); BUN/Creat Ratio 12.3 RATIO (10-20); Chloride 92 mmol/L (98-107); Creatinine, Serum 0.98 mg/dL (0.70-1.30); EST Glomerular Filtration Rate 85 mL/min (>60); Est Glom Filt Rate - Afr Amer 103 mL/min (>60); Glucose 81 mg/dL (74-106); Potassium 3.4 mmol/L (3.5-5.1); Sodium Level 132 mmol/L (136-145)
== END ==
PROVIDERS: PCP Family Medicine; Referring Provider Family Medicine; Visit Provider Family Medicine
DX: E87.6 Hypokalemia (principal)
CPT/HCPCS: 36415; 80048

== ENCOUNTER → 2020-10-02 09:44 | Outpatient (CLI) | payer MEDICAID, SELFPAY ==
[2020-07-08 23:05] VITALS: BMI 25.4
[2020-10-02 12:39] LABS: Anion Gap 9 (5-15); BUN 10 mg/dL (7-18); BUN/Creat Ratio 10.1 RATIO (10-20); Calcium,Total 9.3 mg/dL (8.5-10.1); Chloride 99 mmol/L (98-107); Creatinine, Serum 0.99 mg/dL (0.70-1.30); EST Glomerular Filtration Rate 84 mL/min (>60); Est Glom Filt Rate - Afr Amer 102 mL/min (>60); Glucose 85 mg/dL (74-106); Potassium 4.2 mmol/L (3.5-5.1); Sodium Level 136 mmol/L (136-145)
== END ==
PROVIDERS: PCP Family Medicine; Referring Provider Family Medicine; Visit Provider Family Medicine
DX: E87.6 Hypokalemia (principal)
CPT/HCPCS: 36415; 80048

== ENCOUNTER → 2020-10-08 08:33 | Outpatient (CLI) | payer MEDICAID, SELFPAY ==
[2020-07-08 23:05] VITALS: BMI 25.4
[2020-10-08 10:30] LABS: Absolute Lymphocyte Count 0.64 X10^3/uL (0.83-4.51); Absolute Neutrophil Count 4.3 X10^3/uL (2.0-7.7); Basophil# 0.04 X10^3/uL; Basophil% 0.7 % (0-1); Eosinophil# 0.03 X10^3/uL; Eosinophils% 0.5 % (0-5); Hematocrit 36.1 % (40-54); Hemoglobin 12.3 g/dL (13.0-16.5); Lymphocyte # 0.64 X10^3/ul (4.0); Lymphocyte % 11.6 % (19-41); Mean Corp Hgb Conc 34.1 g/dL (32-36); Mean Platelet Vol. 10.6 fl (6.2-12.0); Monocyte# 0.49 X10^3/uL; Monocyte% 8.9 % (0-10); NRBC Flagged by Analyzer 0 % (0-5); Neutrophil # 4.31 X10^3/uL (2.7-7.7); Neutrophil % 77.9 % (47-70); Platelet Count 128 K/mm3 (150-450); RBC Distribution Width CV 14.1 % (11.6-14.6); RBC Distribution Width SD 48.4 fl (35.1-43.9); Red Blood Count 3.84 M/mm3 (4.6-6.2); White Blood Count 5.5 K/mm3 (4.4-11.0)
[2020-10-08 11:41] LABS: Thyroid Stim Hormone (TSH) 3.46 uIU/mL (0.358-3.74)
== END ==
PROVIDERS: PCP Family Medicine; Referring Provider Family Medicine; Visit Provider Family Medicine
DX: R19.7 Diarrhea, unspecified (principal)
CPT/HCPCS: 36415; 84443; 85025; 87177; 87209; 87493; 87506

== ENCOUNTER → 2020-10-17 09:41 | Outpatient (CLI) | payer MEDICAID, SELFPAY ==
[2020-07-08 23:05] VITALS: BMI 25.4
[2020-10-17 12:13] LABS: Absolute Lymphocyte Count 0.64 X10^3/uL (0.83-4.51); Absolute Neutrophil Count 2.2 X10^3/uL (2.0-7.7); Basophil# 0.04 X10^3/uL; Basophil% 1.2 % (0-1); Eosinophil# 0.12 X10^3/uL; Eosinophils% 3.7 % (0-5); Hematocrit 39.2 % (40-54); Lymphocyte # 0.64 X10^3/ul (4.0); Lymphocyte % 19.6 % (19-41); Mean Corp Hgb Conc 33.2 g/dL (32-36); Mean Corpuscular Hgb 31.9 pg (27.0-32.0); Mean Corpuscular Volume 96.3 fL (80-94); Mean Platelet Vol. 9.8 fl (6.2-12.0); Monocyte# 0.32 X10^3/uL; Monocyte% 9.8 % (0-10); NRBC Flagged by Analyzer 0 % (0-5); Neutrophil # 2.15 X10^3/uL (2.7-7.7); Neutrophil % 65.7 % (47-70); Platelet Count 145 K/mm3 (150-450); RBC Distribution Width CV 13.9 % (11.6-14.6); RBC Distribution Width SD 49.5 fl (35.1-43.9); Red Blood Count 4.07 M/mm3 (4.6-6.2); White Blood Count 3.3 K/mm3 (4.4-11.0)
[2020-10-17 12:34] LABS: ALB/GLOB Ratio 1.1 RATIO (0.9-2.4); AST(SGOT) 40 U/L (15-37); Alanine Aminotransfer ALT/SGPT 39 U/L (16-61); Albumin, Serum 4.2 g/dL (3.2-5.0); Alkaline Phosphatase 86 U/L (45-117); Anion Gap 6 (5-15); BUN 13 mg/dL (7-18); Calcium,Total 9.2 mg/dL (8.5-10.1); Chloride 96 mmol/L (98-107); Creatinine, Serum 0.93 mg/dL (0.70-1.30); EST Glomerular Filtration Rate 90 mL/min (>60); Est Glom Filt Rate - Afr Amer 109 mL/min (>60); Ferritin 739 ng/mL (26-388); Globulin 3.9 g/dL (2.2-4.2); Glucose 110 mg/dL (74-106); Iron 93 ug/dL (65-175); Iron Binding Capacity,Total 363 ug/dL (250-450); Protein, Total 8.1 g/dL (6.4-8.2); Sodium Level 133 mmol/L (136-145); Vitamin B12 677 pg/mL (211-911)
== END ==
PROVIDERS: PCP Family Medicine; Referring Provider Family Medicine; Visit Provider Family Medicine
DX: D64.9 Anemia, unspecified (principal); I10 Essential (primary) hypertension
CPT/HCPCS: 36415; 80053; 82607; 82728; 83540; 83550; 85025

== ENCOUNTER → 2020-11-12 07:59 | Outpatient (CLI) | payer MEDICAID, SELFPAY ==
[2020-11-05 10:53] VITALS: BMI 25.4
--- NOTE | 2020-11-12 08:00 | ECHOD_ITS ---
Reason For Study: Arrhythmia Procedure This was a 2D Doppler, Color Flow transthoracic echocardiogram. Exam performed in department. Left Ventricle Normal LV size. Left ventricular systolic function is normal. The estimated ejection fraction is 60 %. Normal diastology for age. No regional wall motion abnormalities noted. Right Ventricle Normal RV size. Normal systolic function. Atria Normal left atrium. Normal right atrium. Mitral Valve Normal mitral valve. Tricuspid Valve Normal tricuspid valve. Aortic Valve Normal aortic valve. Pulmonic Valve Normal pulmonic valve. Great Vessels Normal aortic root. The pulmonary artery is normal size. Normal inferior vena cava. Pericardium/Pleural No pericardial effusion. MMode/2D Measurements & Calculations LVIDd: 4.5 cm IVSd: 1.1 cm LA dimension: 3.4 cm LVIDs: 3.2 cm LVPWd: 1.1 cm RVDd: 3.3 cm FS: 29.6 % LAV(MOD-bp): 30.2 ml LA A4 area: 13.0 cm2 RA A4 area: 12.1 cm2 LAV(MOD-bp) Indexed: 14.9 ml/m2 LAV(MOD-sp2): 31.8 ml LAV(MOD-sp4): 28.9 ml Time Measurements MV dec time: 0.19 sec Doppler Measurements & Calculations MV E max mike: 96.8 cm/sec Lat Peak E' Mike: 11.7 cm/sec Med Peak E' Mike: 11.6 cm/sec MV A max mike: 68.8 cm/sec E/E' lat: 8.3 E/E' med: 8.3 MV E/A: 1.4 MV V2 max: 108.1 cm/sec MV P1/2t max mike: 110.0 cm/sec Ao V2 max: 111.3 cm/sec MV max P.7 mmHg MV P1/2t: 76.2 msec Ao max P.0 mmHg MV V2 mean: 53.6 cm/sec MV dec slope: 423.1 cm/sec2 MV mean P.4 mmHg MVA(P1/2t): 2.9 cm2 MV V2 VTI: 27.6 cm LV V1 max: 107.1 cm/sec PA V2 max: 118.5 cm/sec LV V1 max P.6 mmHg Interpretation Summary Normal LV size. Left ventricular systolic function is normal. The estimated ejection fraction is 60 %. Normal diastology for age. Structurally normal valves. Ordering Physician: Macario Mendoza Referring Physician: Rupert Coker Performed By: Bk Mina RCS
== END ==
PROVIDERS: PCP Family Medicine; Referring Provider Internal Medicine Cardiovascular Disease; Visit Provider Internal Medicine Cardiovascular Disease
DX: R55 Syncope and collapse (principal)
CPT/HCPCS: 93225; 93226; 93306

== ENCOUNTER → 2020-11-20 10:43 | Outpatient (CLI) | payer MEDICAID, SELFPAY ==
[2020-11-20 09:36] VITALS: BMI 25.9
[2020-11-20 11:40] LABS: Hematocrit 39.6 % (40-54); Mean Corpuscular Volume 86.7 fL (80-94); Mean Platelet Vol. 11.1 fl (6.2-12.0); POSITIVE COUNT YES; Platelet Count 99 K/mm3 (150-450); RBC Distribution Width CV 10.6 % (11.6-14.6); RBC Distribution Width SD 33.8 fl (35.1-43.9); Red Blood Count 4.57 M/mm3 (4.6-6.2); White Blood Count 3.4 K/mm3 (4.4-11.0)
[2020-11-20 12:03] LABS: Hemoglobin 14.8 g/dL (13.0-16.5)
[2020-11-20 12:07] LABS: Mean Corpuscular Hgb 32.3 pg (27.0-32.0)
[2020-11-20 12:08] LABS: Mean Corp Hgb Conc 37.3 g/dL (32-36); Scan Indicated on CBC? Y/N NO
[2020-11-20 12:13] LABS: Vitamin B12 > 2000 pg/mL (211-911)
[2020-11-20 12:54] LABS: ALB/GLOB Ratio 1.1 RATIO (0.9-2.4); AST(SGOT) 336 U/L (15-37); Alanine Aminotransfer ALT/SGPT 308 U/L (16-61); Albumin, Serum 4.4 g/dL (3.2-5.0); Alkaline Phosphatase 107 U/L (45-117); Anion Gap 12 (5-15); BUN 9 mg/dL (7-18); Calcium,Total 9.5 mg/dL (8.5-10.1); Chloride 63 mmol/L (98-107); Creatinine, Serum 1.13 mg/dL (0.70-1.30); EST Glomerular Filtration Rate 72 mL/min (>60); Est Glom Filt Rate - Afr Amer 87 mL/min (>60); Globulin 3.9 g/dL (2.2-4.2); Glucose 100 mg/dL (74-106); Potassium 2.1 mmol/L (3.5-5.1); Protein, Total 8.3 g/dL (6.4-8.2); Sodium Level 112 mmol/L (136-145); Thyroid Stim Hormone (TSH) 2.41 uIU/mL (0.358-3.74)
[2020-11-27 20:08] LABS: Free Kappa Light Chains 19.5 mg/L (3.3-19.4); Free Lambda Light Chains 15.9 mg/L (5.7-26.3)
[2020-11-28 05:16] LABS: Vitamin B1, Thiamine 122.4 nmol/L (66.5-200.0)
== END ==
PROVIDERS: PCP Family Medicine; Referring Provider Psychiatry & Neurology Neurology; Visit Provider Psychiatry & Neurology Neurology
DX: I10 Essential (primary) hypertension (principal); E87.6 Hypokalemia; G62.89 Other specified polyneuropathies
CPT/HCPCS: 36415; 80053; 82607; 82746; 83883; 84425; 84443; 85027

== ENCOUNTER 2020-11-20 13:50 | Inpatient (IN) | payer OTHER, MEDICAID, SELFPAY ==
[2020-11-20] VITALS (16 sets, daily range): BP systolic 121–143; BP diastolic 76–95; PULSE 74–102; RESP 12–22; TEMP 36.6–37.2; O2SAT 94–100; BMI 25.9; BMI 25.1; BMI 24.6
[2020-11-20 14:41] LABS: Anion Gap 13 (5-15); BUN 10 mg/dL (7-18); BUN/Creat Ratio 10.1 RATIO (10-20); Calcium,Total 9.5 mg/dL (8.5-10.1); Chloride 64 mmol/L (98-107); Creatinine, Serum 0.99 mg/dL (0.70-1.30); EST Glomerular Filtration Rate 84 mL/min (>60); Est Glom Filt Rate - Afr Amer 102 mL/min (>60); Estimated Creatinine Clearance 90.85 ml/min; Glucose 116 mg/dL (74-106); Potassium 2.1 mmol/L (3.5-5.1); Sodium Level 109 mmol/L (136-145)
--- NOTE | 2020-11-20 15:04 | CT_ITS ---
STUDY: CT BRAIN WITHOUT CONTRAST REASON FOR EXAM: Male, 55 years old. head injury, headache RADIATION DOSAGE (If Supplied By Facility): CTDIvol = ( 44.99 ) mGy, DLP = ( 812.98 ) mGycm TECHNIQUE: Transaxial CT imaging of the brain was performed without administration of intravenous contrast material. Individualized dose optimization techniques were used for this CT. COMPARISON: 07/08/2020 FINDINGS: Normal soft tissue structures. Normal calvarium. Normal size ventricles and extra-axial spaces for the patient''s age. Normal white matter tracts of the cerebral hemispheres. Normal basal ganglia and thalami. Normal brainstem. Normal cerebellum. There is no intracranial hemorrhage. There are no findings of an acute ischemic infarction. Normal visualized paranasal sinuses. CT/Brain/Head without Contrast IMPRESSION: Normal unenhanced CT scan of the brain. Electronically Signed: Dennis Ocampo MD at 16:09 EDT Tel , Service support ,
--- NOTE | 2020-11-20 15:04 | RAD_ITS ---
STUDY: X-RAY CHEST REASON FOR EXAM: Male, 55 years old. falls , shortness of breath TECHNIQUE: Single AP portable view of the chest. COMPARISON: None. FINDINGS: The lungs are clear and expanded. There is no demonstrated pleural abnormality. Normal size heart. Normal mediastinum and carlyn. Normal visualized pulmonary arteries. Normal visualized aortic arch and descending thoracic aorta. There is a dextroscoliosis of the thoracic spine. Normal visualized ribs, clavicles, and shoulders. There is no demonstrated abnormality of the visualized soft tissue structures of the upper abdomen. RAD/Chest 1 View (Portable) IMPRESSION: Normal x-ray examination of the chest. Electronically Signed: Dennis Ocampo MD at 16:07 EDT Tel , Service support ,
--- NOTE | 2020-11-20 15:04 | CT_ITS ---
STUDY: CT CERVICAL SPINE WITHOUT CONTRAST REASON FOR EXAM: Male, 55 years old. head injuruy and neck pain RADIATION DOSAGE (If Supplied By Facility): CTDIvol = ( 23.52 ) mGy, DLP = ( 612.59 ) mGycm TECHNIQUE: High resolution transaxial imaging was performed without contrast material. Sagittal and coronal images were reconstructed. Individualized dose optimization techniques were used for this CT. COMPARISON: 07/08/2020 FINDINGS: Normal craniovertebral junction. Normal anterior atlantoaxial articulation. Normal odontoid process. Normal cervical lordosis. Flowing paravertebral ossification in cervical spine consistent with diffuse idiopathic skeletal hyperostosis (DISH). C2-3: Normal endplates. Normal disc height and morphology. Normal central canal and intervertebral neuroforamina. C3-4: Normal endplates. Normal disc height and morphology. Normal central canal and intervertebral neuroforamina. C4-5: Moderate right facet hypertrophy produces mild right neural foraminal stenosis. No central spinal stenosis C5-6: Normal endplates. Normal disc height and morphology. Normal central canal and intervertebral neuroforamina. C6-7: Normal endplates. Normal disc height and morphology. Normal central canal and intervertebral neuroforamina. C7-T1: Normal endplates. Normal disc height and morphology. Normal central canal and intervertebral neuroforamina. Normal visualized soft tissue structures. CT/Spine Cervical without Contras IMPRESSION: No acute fracture or subluxation. Electronically Signed: Dennis Ocampo MD at 16:17 EDT Tel , Service support ,
--- NOTE | 2020-11-20 15:06 | ED.DCSUM_ITS ---
- ER Visit Summary Date of Service: 11/20/20 Chief Complaint: Falls and electrolyte abnormalities History of Present Illness: The patient is a 55 M with alcohol abuse drinks 6-12 beers per day. History of hypertension, prior low sodium and low potassium and seizures from nose. Reportedly he fell on Tuesday striking his face and then again on Tuesday. He has bruising around both eyes. He has had nausea and vomiting. He is also had about 6 weeks of diarrhea. He and his deny any melena or hematemesis. He is also decreased oral intake. He also complains of some neck pain after the falls. Physical Examination: Middle-aged male vital signs stable afebrile. H EENT exam pupils round react light his motions are intact. Pupils are not dilated about 2 to 3 mm bilaterally. He does have periorbital bruising bilaterally and also the bridge of his nose. There is no blood from his nose. There is only minimal tenderness. He has multiple missing upper teeth which are chronic and poor lower dentition. Jaw is not swollen. No trouble breathing or swallowing. Scalp nontender. C-spine he complains of pain but not specifically tender. Lungs clear to auscultation bilaterally. Heart regular rhythm no murmur. Chest wall nontender. Abdomen soft nontender normal bowel sounds no peritoneal signs. Pelvic girdle intact. Moving all 4 extremities. Neurovascular intact. No edema. No bruising. No deformity. Back nontender. Neurologically is awake alert. Moving all 4 extremities. GCS of 15. Test Results: CBC shows white count 3. Hemoglobin 14. 99,000 platelets. Chemistry sodium 109 potassium of 2.1 chloride of 64. Normal gap. Normal BUN and creatinine glucose. Liver enzymes are normal except alk phos elevated at 308. Emergency Department Course and Treatment: Middle-aged male history of alcoholism. And severe hyponatremia and hypokalemia. He will be treated with normal saline IV. IV potassium. He will need imaging of his brain and neck. And labs already returned. He will definitely be admitted to the PCU for further observation of his electrolytes and to monitor him for either dysrhythmia or seizures. Treatment Plan: I spoke to the hospitalist and the patient will be admitted to the ICU. Disposition: Admission Impression: Acute falls with head injury History of alcohol abuse Acute severe hyponatremia Acute hypokalemia History of prior seizures from electrolyte abnormalities Facial trauma with bruising This note was generated with [employer] dictation software. It may contain incorrect words, spelling, and punctuation that were not noted in review of the chart prior to signing ED Disposition - Plan for ED Patient: Referrals: Rupert Coker MD [Primary Care Provider] -
--- NOTE | 2020-11-20 15:10 | CT_ITS ---
STUDY: CT FACIAL BONES WITHOUT CONTRAST REASON FOR EXAM: Male, 55 years old. fall and facial trauma RADIATION DOSAGE (If Supplied By Facility): CTDIvol = ( 29.38 ) mGy, DLP = ( 547.46 ) mGycm TECHNIQUE: The patient was scanned in a multi detector CT scanner. Sagittal and coronal images were reconstructed. Individualized dose optimization techniques were used for this CT. COMPARISON: None. FINDINGS: Normal soft tissue structures. Normal orbital chávez and orbital contents. Normal nasal bones and anterior nasal spine. Normal facial bones. There is no demonstrated fracture. Normal visualized paranasal sinuses. CT/Sinus/Facial Bone IMPRESSION: Normal unenhanced CT of the facial bones. Electronically Signed: Dennis Ocampo MD at 16:15 EDT Tel , Service support ,
[2020-11-20] MEDS: Potassium Chloride Oral Tablet 20 MEQ 40 MEQ PO (16:23)
[2020-11-20] MEDS: Potassium Chloride 10mEq/100mL 10 MEQ/100 ML IV.SOLN. 100 MEQ IV BOLUS ×6 (16:23→23:31)
[2020-11-20] MEDS: 0.9% Normal Saline 1,000 ML 999 ML IV (16:24)
--- NOTE | 2020-11-20 17:18 | HP.PCM_ITS ---
Problem List (1) Recurrent syncope Status: Acute (2) Essential (primary) hypertension Status: Chronic (3) HLD (hyperlipidemia) Status: Chronic Qualifiers: Hyperlipidemia type: unspecified Qualified Code(s): E78.5 - Hyperlipidemia, unspecified (4) Seizure Status: Resolved (5) Hyponatremia Status: Chronic (6) Hypokalemia Status: Chronic (7) Tobacco use Status: Chronic (8) NUHA (obstructive sleep apnea) Status: Chronic (9) Chronic alcohol dependence, continuous Status: Chronic History of Present Illness Date of Admission: 11/20/20 Chief Complaint: Recurrent falls, abnormal blood work The patient is a 55 year old M with past medical history of chronic alcohol use disorder, history of electrolyte imbalances with recurrent syncope, hypertension, obstructive sleep apnea, seizure disorder related to alcohol. Patient was sent in from his neurologist office where he patient was sent into the hospital from the neurologist office where he had gone to follow-up on syncope. He admits to falling several times. He fell 4 days ago, striking his face, he then fell again 3 days ago. He admits to some nausea and vomiting as well as diarrhea. Patient drinks about 6-12 beers a day. Vitals in the emergency department was stable. His sodium was 109. It was 112 this morning. Potassium is 2.1. His BUN is 10, creatinine 0.99, calcium 9.5, serum alcohol level is 57. CT scan of the brain is unremarkable. CT scan of the spine shows no acute fracture or subluxation. Admitting chest x-ray is unremarkable. Of the facial sinuses is unremarkable. Past Medical History Past Medical History (Chronic Problems): Chronic Problems (Last Reviewed 11/20/20 @ 09:31 by Liseth Adame) Essential (primary) hypertension (Chronic) HLD (hyperlipidemia) (Chronic) Hyponatremia (Chronic) Hypokalemia (Chronic) Tobacco use (Chronic) Elevated LFTs (Chronic) NUHA (obstructive sleep apnea) (Chronic) Chronic alcohol dependence, continuous (Chronic) Medical History: Medical History (Last Reviewed 11/20/20 @ 09:31 by Liseth Adame) Essential (primary) hypertension (Chronic) I10 HLD (hyperlipidemia) (Chronic) E78.5 Seizure (Resolved) R56.9 Hyponatremia (Chronic) E87.1 Hypokalemia (Chronic) E87.6 Tobacco use (Chronic) Z72.0 Elevated LFTs (Chronic) R79.89 NUHA (obstructive sleep apnea) (Chronic) G47.33 Chronic alcohol dependence, continuous (Chronic) F10.20 BMI 27.0-27.9,adult Z68.27 Electrolyte abnormality E87.8 Thrombocytopenia D69.6 Alcohol withdrawal (Resolved) F10.239 Right inguinal hematoma (Resolved) Scalp laceration S01.01XA Allergies No Known Allergies Allergy (Verified 11/20/20 13:53) Home Medications: Ambulatory Orders Medication Instructions Recorded Amlodipine Besylate [Norvasc] 5 mg PO DAILY 03/11/19 Naltrexone HCl 50 mg PO DAILY 03/11/19 Potassium Gluconate 99 meq PO DAILY 03/11/19 Rosuvastatin Calcium 40 mg PO QHS 03/11/19 Cetirizine HCl 10 mg PO DAILY 07/09/20 Thiamine Mononitrate (Vit B1) 100 mg PO DAILY 07/09/20 [Vitamin B-1] cholecalciferol (vitamin D3) 25 25 mcg PO DAILY 11/05/20 mcg (1,000 unit) capsule fluoxetine 10 mg tablet 10 mg PO BID tab 11/05/20 lisinopril 40 mg tablet 40 mg PO DAILY tab 11/05/20 potassium chloride 20 mEq oral 20 meq PO DAILY ea 11/05/20 packet sodium bicarbonate 325 mg tablet 325 mg PO BID tab 11/05/20 Cyanocobalamin (Vitamin B-12) 1,000 mcg PO DAILY 11/20/20 [B-12] [place]-3 Fatty Acids [[place]-3] 1,000 mg PO DAILY 11/20/20 Valacyclovir HCl [Valacyclovir] 1,000 mg PO DAILY PRN PRN 11/20/20 Zinc 50 mg PO DAILY 11/20/20 ascorbic acid (vitamin C) 1,000 mg 1 g PO DAILY tab 11/20/20 tablet multivit,Ca,min-iron 8 mg-folic 1 tab PO DAILY tab 11/20/20 acid 200 mcg-lycopene 600 mcg tablet Surgical History: Surgical History (Last Reviewed 11/20/20 @ 09:31 by Liseth Adame) History of hernia repair Z98.890, Z87.19 Surgical History: herniorrhaphy Psychiatric History: No pertinent psych hx Lives: Spouse/ Significant Other Smoking Status: Current every day smoker Tobacco Use: Chew Alcohol: Heavy Drugs: None - *Family History Maternal Family History: Family History (Last Reviewed 11/20/20 @ 09:31 by Liseth Adame) Mother Asthma History Items: Asthma, Diabetes, Heart Disease Paternal Family History: Family History (Last Reviewed 11/20/20 @ 09:31 by Liseth Adame) Mother Asthma History Items: Diabetes, Heart Disease Review of Systems Constitutional: Reports: Weakness, Fatigue. Denies: Anorexia, Chills, Fever, Malaise, Weight Change Eyes: Denies: Blurred vision, Cataracts, Conjunctivae Inflammation, Pain, Redness, Vision Change HEENT: Denies: Difficulty Hearing, Difficulty Swallowing, Head Aches, Hearing Changes, Sinus Congestion, Sinus Drainage Cardiovascular: Denies: Chest Pain, Claudication, Orthopnea, Palpitations, Paroxysmal Noc. Dyspnea Respiratory: Denies: Cough, Hemoptysis, Shortness of breath at rest, Shortness of breath upon exertion, Sputum production Gastrointestinal: Denies: Abdominal Pain, Hematemesis, Hematochezia, Nausea, Vomiting Genitourinary: Denies: Dysuria, Frequency, Incontinence, Nocturia Musculoskeletal: Denies: Joint Pain, Joint stiffness, Joint swelling, Joint Tenderness Skin: Denies: Rash, Wounds Neurological: Denies: Difficulty swallowing, Focal weakness, Numbness, Tingling Psychiatric: Denies: Anxiety, Depression, Homicidal Ideations, Suicidal Ideations Hematologic/ Lymphatic: Denies: Easy Bruising, Easy Bleeding VTE Information - Inpt Only VTE Present on Admission: No VTE Pharm Prophylaxis ordered?: Yes - Physical Exam Vitals/I&O's: Vital Signs Temp Pulse Resp BP Pulse Ox 97.8 F 90 18 131/82 H 98 11/20/20 13:51 11/20/20 17:05 11/20/20 17:05 11/20/20 17:05 11/20/20 17:05 Oxygen Delivery Method Room Air Weight: 81.647 kg Body Mass Index (BMI) 25.1 Intake and Output for Last 24 Hours 11/18/20 11/19/20 11/20/20 23:59 23:59 23:59 Intake Total 782.55 / 782.55 Balance 782.55 / 782.55 General: Alert, Oriented x3, Cooperative, No apparent distress HEENT: Atraumatic, PERRLA, EOMI, Normocephalic Oral: Moist Mucosa Neck: Supple Lungs: Clear to auscultation, Normal air movement Cardiovascular: Regular rate, Regular Rhythm, Normal S1, Normal S2, No murmurs Abdomen: Bowel Sounds Present, Soft, Non Tender, Non-Distended, No Hepato- splenomegaly Extremities: No edema Skin: No rashes Musculoskeletal: No Tenderness to Palpation of Joints or Extremities Lymphatic: No Cervical, Supraclavicular, or Inguinal Adenopathy Neurological: Cranial nerves II-XII grossly intact, Neuro grossly intact, - - Slightly tremulous Psych/Mental Status: Normal Affect, Appropriate Laboratory Results 11/20/20 13:59: Sodium 109 L*, Potassium 2.1 L*, Chloride 64 L*, Carbon Dioxide 32.0, Anion Gap 13, BUN 10, Creatinine 0.99, Estim Creat Clear Calc 90.85, Est GFR (MDRD) Af Amer 102, Est GFR (MDRD) Non-Af 84, BUN/Creatinine Ratio 10.1, Glucose 116 H, Calcium 9.5 11/20/20 15:10: Ethyl Alcohol 57.0 Current Medications Potassium Chloride () 10 meq in 100 mls @ 100 mls/hr IV BOLUS Q1H KO Stop: 11/20/20 17:59 Last Admin: 11/20/20 16:23 Dose: 100 mls/hr Documented by: Assessment/Plan All Active Problems (Last Reviewed 11/20/20 @ 09:31 by Liseth Adame) Recurrent syncope (Acute) Seizure (Resolved) Alcohol withdrawal (Resolved) Right inguinal hematoma (Resolved) 1. Recurrent syncope likely secondary to chronic electrolyte imbalances Patient's initial imaging of the head, facial bones, neck showed no acute fractures 2D echo shows EF of 60%. Recent Holter monitor had showed occasional PVCs. 2. 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 Alcohol use disorder, with history of seizures We will continue to monitor on alcohol withdrawal protocol, continue thiamine, folic acid 4. Hypertension, controlled, continue on amlodipine, lisinopril 5. Hyperlipidemia, continue on statin 6. NUHA, needs a sleep study, recently seen pulmonology in the outpatient Continue on CPAP 7. DVT prophylaxis?Lovenox subcu Inpatient E&M: 97229 Init Hosp L3
--- NOTE | 2020-11-20 17:34 | EKG12_ITS ---
Test Reason : Blood Pressure : / mmHG Vent. Rate : 084 BPM Atrial Rate : 084 BPM P-R Int : 162 ms QRS Dur : 094 ms QT Int : 420 ms P-R-T Axes : 036 -19 015 degrees QTc Int : 496 ms Normal sinus rhythm with sinus arrhythmia Prolonged QT Abnormal ECG Confirmed by NICOLÁS HARRINGTON, MARYCARMEN ([id number]), manager editorial CHERYL WAGNER ([id number]) on 11/24/2020 10:27:43 AM Referred By: ARDEN Confirmed By:MARYCARMEN MONZON MD
[2020-11-20] MEDS: 0.9% Normal Saline 1,000 ML 75 ML IV (20:21)
[2020-11-20] MEDS: 0.9% Saline Lock 10 ML Syringe IV ×3 (20:30→23:31)
[2020-11-20] MEDS: Sodium Bicarbonate 650 MG Tablet 325 MG PO (20:30)
[2020-11-20] MEDS: FLUoxetine 10 MG Capsule PO (20:31)
[2020-11-20] MEDS: Atorvastatin Calcium 80 MG Tablet PO (20:31)
[2020-11-20] MEDS: Phenobarbital 32.4 MG Tablet 64.8 MG PO (20:32)
[2020-11-20 20:47] LABS: Absolute Lymphocyte Count 0.44 X10^3/uL (0.83-4.51); Absolute Neutrophil Count 2.9 X10^3/uL (2.0-7.7); Basophil# 0.01 X10^3/uL; Basophil% 0.3 % (0-1); Hematocrit 37.3 % (40-54); Lymphocyte # 0.44 X10^3/ul (4.0); Lymphocyte % 11.3 % (19-41); Mean Corp Hgb Conc 37.5 g/dL (32-36); Mean Corpuscular Hgb 32.6 pg (27.0-32.0); Mean Corpuscular Volume 86.7 fL (80-94); Mean Platelet Vol. 11.8 fl (6.2-12.0); Monocyte# 0.56 X10^3/uL; Monocyte% 14.4 % (0-10); NRBC Flagged by Analyzer 0 % (0-5); Neutrophil # 2.86 X10^3/uL (2.7-7.7); Neutrophil % 73.7 % (47-70); POSITIVE COUNT YES; POSITIVE DIFFERENTIAL YES; Platelet Count 88 K/mm3 (150-450); RBC Distribution Width CV 10.7 % (11.6-14.6); RBC Distribution Width SD 33.4 fl (35.1-43.9); White Blood Count 3.9 K/mm3 (4.4-11.0)
[2020-11-20 20:49] LABS: Differential Indicated SCAN CRITERIA MET
[2020-11-20 20:51] LABS: AST(SGOT) 221 U/L (15-37); Alanine Aminotransfer ALT/SGPT 229 U/L (16-61); Albumin, Serum 3.7 g/dL (3.2-5.0); Alkaline Phosphatase 88 U/L (45-117); Bilirubin, Direct 0.35 mg/dL (0.00-0.30); Globulin 3.3 g/dL (2.2-4.2)
[2020-11-20 21:07] LABS: Anion Gap 9 (5-15); BUN 9 mg/dL (7-18); BUN/Creat Ratio 9.6 RATIO (10-20); Calcium,Total 8.3 mg/dL (8.5-10.1); Chloride 75 mmol/L (98-107); Creatinine, Serum 0.94 mg/dL (0.70-1.30); EST Glomerular Filtration Rate 89 mL/min (>60); Est Glom Filt Rate - Afr Amer 107 mL/min (>60); Estimated Creatinine Clearance 95.68 ml/min; Glucose 144 mg/dL (74-106); Magnesium 1.6 mg/dL (1.6-2.6); Potassium 2.2 mmol/L (3.5-5.1); Sodium Level 118 mmol/L (136-145)
[2020-11-20 21:20] LABS: Anisocytosis RARE; Platelet Estimate MOD DEC (ADEQ); Red Cell Morphology N CHROM NORMAL (NORM C&C)
[2020-11-20] MEDS: Magnesium Sulfate 4gm/100mL 4 GM/100 ML IV.SOLN. IV (23:17)
[2020-11-20 23:53] LABS: Anion Gap 6 (5-15); BUN 9 mg/dL (7-18); Calcium,Total 8.7 mg/dL (8.5-10.1); Chloride 80 mmol/L (98-107); Creatinine, Serum 0.82 mg/dL (0.70-1.30); EST Glomerular Filtration Rate 105 mL/min (>60); Est Glom Filt Rate - Afr Amer 127 mL/min (>60); Estimated Creatinine Clearance 109.68 ml/min; Glucose 95 mg/dL (74-106); Potassium 2.8 mmol/L (3.5-5.1); Sodium Level 119 mmol/L (136-145)
[2020-11-21] VITALS (19 sets, daily range): BP systolic 116–143; BP diastolic 38–101; PULSE 67–89; RESP 12–18; TEMP 36.2–36.9; O2SAT 93–100
[2020-11-21] MEDS: Phenobarbital 32.4 MG Tablet 64.8 MG PO ×6 (00:35→20:17)
[2020-11-21] MEDS: 0.9% Saline Lock 10 ML Syringe IV (04:31)
[2020-11-21 04:45] LABS: Absolute Lymphocyte Count 0.33 X10^3/uL (0.83-4.51); Absolute Neutrophil Count 1.5 X10^3/uL (2.0-7.7); Eosinophil# 0.01 X10^3/uL; Eosinophils% 0.5 % (0-5); Hematocrit 35.2 % (40-54); Hemoglobin 12.8 g/dL (13.0-16.5); Lymphocyte # 0.33 X10^3/ul (4.0); Lymphocyte % 15.3 % (19-41); Mean Corp Hgb Conc 36.4 g/dL (32-36); Mean Corpuscular Hgb 32.2 pg (27.0-32.0); Mean Corpuscular Volume 88.7 fL (80-94); Mean Platelet Vol. 11.2 fl (6.2-12.0); Monocyte# 0.33 X10^3/uL; Monocyte% 15.3 % (0-10); NRBC Flagged by Analyzer 0 % (0-5); Neutrophil # 1.47 X10^3/uL (2.7-7.7); Neutrophil % 68.4 % (47-70); POSITIVE COUNT YES; POSITIVE DIFFERENTIAL YES; Platelet Count 74 K/mm3 (150-450); RBC Distribution Width CV 10.8 % (11.6-14.6); RBC Distribution Width SD 34.9 fl (35.1-43.9); Red Blood Count 3.97 M/mm3 (4.6-6.2); White Blood Count 2.2 K/mm3 (4.4-11.0)
[2020-11-21 04:51] LABS: Differential Indicated SCAN CRITERIA MET
[2020-11-21 05:07] LABS: ALB/GLOB Ratio 1.1 RATIO (0.9-2.4); AST(SGOT) 198 U/L (15-37); Alanine Aminotransfer ALT/SGPT 221 U/L (16-61); Albumin, Serum 3.8 g/dL (3.2-5.0); Alkaline Phosphatase 92 U/L (45-117); Anion Gap 8 (5-15); BUN 9 mg/dL (7-18); BUN/Creat Ratio 11.9 RATIO (10-20); Calcium,Total 8.8 mg/dL (8.5-10.1); Chloride 81 mmol/L (98-107); Creatinine, Serum 0.76 mg/dL (0.70-1.30); EST Glomerular Filtration Rate 114 mL/min (>60); Est Glom Filt Rate - Afr Amer 138 mL/min (>60); Estimated Creatinine Clearance 118.34 ml/min; Globulin 3.4 g/dL (2.2-4.2); Glucose 97 mg/dL (74-106); Potassium 2.5 mmol/L (3.5-5.1); Protein, Total 7.2 g/dL (6.4-8.2); Sodium Level 125 mmol/L (136-145)
[2020-11-21 05:22] LABS: Differential Comment SCANNED; Platelet Estimate MOD DEC (ADEQ)
[2020-11-21] MEDS: Potassium Chloride Oral Tablet 20 MEQ PO ×2 (06:48→06:49)
[2020-11-21] MEDS: Potassium Chloride 10mEq/100mL 10 MEQ/100 ML IV.SOLN. 100 MEQ IV BOLUS ×8 (06:56→17:51)
--- NOTE | 2020-11-21 07:02 | CON.PCM_ITS ---
Problem List (1) Recurrent syncope Status: Acute (2) Essential (primary) hypertension Status: Chronic (3) HLD (hyperlipidemia) Status: Chronic Qualifiers: Hyperlipidemia type: unspecified Qualified Code(s): E78.5 - Hyperlipidemia, unspecified (4) Seizure Status: Resolved (5) Hyponatremia Status: Chronic (6) Hypokalemia Status: Chronic (7) Tobacco use Status: Chronic (8) Elevated LFTs Status: Chronic (9) NUHA (obstructive sleep apnea) Status: Chronic (10) Chronic alcohol dependence, continuous Status: Chronic Reason for Consult Date of Consultation: 11/21/20 Reason for Consultation: Syncope History of Present Illness: The patient is a 55 year old M, with past medical history listed below, who presented to [facility] on 11/20/2020 secondary to laboratory abnormalities. Patient reportedly drinks 6-12 beers per day and had presented to his neurologist for recurrent syncope. Patient reportedly fell on Tuesday striking his face. Patient again fell the day after resulting in bilateral black eyes. Patient had reportedly had diarrhea for 6 weeks without report of melena or hematochezia. Patient had had some decreased oral intake along with nausea and vomiting. In the ER, patient was noted to have bilateral periorbital bruising, but no epistaxis. GCS was 15. Laboratory showed a white blood cell count of 3, hemoglobin of 14 and 99,000 platelets. Chemistry was significantly abnormal with a potassium of 2.1, chloride of 64 and sodium of 109. Alk phos was slightly elevated at 308, but other liver functions were within normal limits. Patient was treated with normal saline, electrolyte repletion and admitted to the intensive care unit for further evaluation. Since being in the intensive care unit, patient reports he is subjectively improved. Patient is receiving phenobarb and was placed on CPAP overnight. Patient states it was difficult to get comfortable secondary to pain at the bridge of his nose, but feels that this was helpful. Patient states his tremor is much improved this morning. Patient does report that he had COVID-19 in August and does have an occasional cough with this. Patient is not dealing with any increased dyspnea. Patient is not able to provide much history in addition to that found in the medical record. Review of systems otherwise negative from a constitutional, HEENT, respiratory, cardiovascular, GI, genitourinary, musculoskeletal, skin, neurologic, psychiatric and hematologic system unless stated above. Past Medical History Past Medical History (Chronic Problems): Chronic Problems (Last Reviewed 11/20/20 @ 09:31 by Liseth Adame) Essential (primary) hypertension (Chronic) HLD (hyperlipidemia) (Chronic) Hyponatremia (Chronic) Hypokalemia (Chronic) Tobacco use (Chronic) Elevated LFTs (Chronic) NUHA (obstructive sleep apnea) (Chronic) Chronic alcohol dependence, continuous (Chronic) Medical History: Medical History (Last Reviewed 11/20/20 @ 09:31 by Liseth Adame) Essential (primary) hypertension (Chronic) I10 HLD (hyperlipidemia) (Chronic) E78.5 Seizure (Resolved) R56.9 Hyponatremia (Chronic) E87.1 Hypokalemia (Chronic) E87.6 Tobacco use (Chronic) Z72.0 Elevated LFTs (Chronic) R79.89 NUHA (obstructive sleep apnea) (Chronic) G47.33 Chronic alcohol dependence, continuous (Chronic) F10.20 BMI 27.0-27.9,adult Z68.27 Electrolyte abnormality E87.8 Thrombocytopenia D69.6 Alcohol withdrawal (Resolved) F10.239 Right inguinal hematoma (Resolved) Scalp laceration S01.01XA Allergies No Known Allergies Allergy (Verified 11/20/20 13:53) Home Medications: Ambulatory Orders Medication Instructions Recorded Amlodipine Besylate [Norvasc] 5 mg PO DAILY 03/11/19 Naltrexone HCl 50 mg PO DAILY 03/11/19 Potassium Gluconate 99 meq PO DAILY 03/11/19 Rosuvastatin Calcium 40 mg PO QHS 03/11/19 Cetirizine HCl 10 mg PO DAILY 07/09/20 Thiamine Mononitrate (Vit B1) 100 mg PO DAILY 07/09/20 [Vitamin B-1] cholecalciferol (vitamin D3) 25 25 mcg PO DAILY 11/05/20 mcg (1,000 unit) capsule fluoxetine 10 mg tablet 10 mg PO BID tab 11/05/20 lisinopril 40 mg tablet 40 mg PO DAILY tab 11/05/20 potassium chloride 20 mEq oral 20 meq PO DAILY ea 11/05/20 packet sodium bicarbonate 325 mg tablet 325 mg PO BID tab 11/05/20 Cyanocobalamin (Vitamin B-12) 1,000 mcg PO DAILY 11/20/20 [B-12] [place]-3 Fatty Acids [[place]-3] 1,000 mg PO DAILY 11/20/20 Valacyclovir HCl [Valacyclovir] 1,000 mg PO DAILY PRN PRN 11/20/20 Zinc 50 mg PO DAILY 11/20/20 ascorbic acid (vitamin C) 1,000 mg 1 g PO DAILY tab 11/20/20 tablet multivit,Ca,min-iron 8 mg-folic 1 tab PO DAILY tab 11/20/20 acid 200 mcg-lycopene 600 mcg tablet Surgical History: Surgical History (Last Reviewed 11/20/20 @ 09:31 by Liseth Adame) History of hernia repair Z98.890, Z87.19 Surgical History: herniorrhaphy Psychiatric History: No pertinent psych hx Lives: Spouse/ Significant Other Smoking Status: Current every day smoker Tobacco Use: Chew Alcohol: Heavy Drugs: None - *Family History Maternal Family History: Family History (Last Reviewed 11/20/20 @ 09:31 by Liseth Adame) Mother Asthma History Items: Asthma, Diabetes, Heart Disease Paternal Family History: Family History (Last Reviewed 11/20/20 @ 09:31 by Liseth Adame) Mother Asthma History Items: Diabetes, Heart Disease Review of Systems Comment: See HPI Patient Problems: Active and Suspected Problems (Last Reviewed 11/20/20 @ 09:31 by Liseth Adame) Recurrent syncope (Acute) Objective: Multiple imaging reports were reviewed. Chest x-ray was personally reviewed and shows no focal infiltrates. Patient does have a sleep study suggesting obstructive sleep apnea and was recently placed on AutoPap, but had not i nitiated therapy per the medical record. - Physical Exam Vitals/I&O's: Vital Signs Temp Pulse Resp BP Pulse Ox 36.3 C L 74 13 134/88 H 99 11/21/20 00:00 11/21/20 04:00 11/21/20 03:00 11/21/20 03:00 11/21/20 03:00 Oxygen Delivery Method CPAP Weight: 78.5 kg Body Mass Index (BMI) 24.6 Intake and Output for Last 24 Hours 11/19/20 11/20/20 11/21/20 23:59 23:59 23:59 Intake Total 1453.80 / 1453.80 200 / 200 Output Total 375 / 375 1375 / 1375 Balance 1078.80 / 1078.80 -1175 / -1175 General: Alert, Oriented x3, Cooperative, No apparent distress, - - Little tremor noted. HEENT: PERRLA, EOMI, Normocephalic, - - Slight scleral injection. Periorbital bruising. Oral: Moist Mucosa, No Gingival or Mucosal Lesions/ Ulcerations Neck: Supple, No JVD, No Nodes Lungs: No rhonchi, No wheeze, No rales, Diminished Cardiovascular: Regular rate, Regular Rhythm, Normal S1, Normal S2, No murmurs, No rub noted, No Gallop Abdomen: Bowel Sounds Present, Soft, Non Tender, Non-Distended Extremities: No clubbing, No cyanosis, No edema Skin: - - Bruising at various stages of healing noted Musculoskeletal: No Tenderness to Palpation of Joints or Extremities Lymphatic: No Cervical, Supraclavicular, or Inguinal Adenopathy Neurological: Cranial nerves II-XII grossly intact, Neuro grossly intact, Motor Exam 5/5 strength throughout Psych/Mental Status: Alert and oriented to time, place, person, mood and affect Laboratory Results 11/20/20 13:59: Sodium 109 L*, Potassium 2.1 L*, Chloride 64 L*, Carbon Dioxide 32.0, Anion Gap 13, BUN 10, Creatinine 0.99, Estim Creat Clear Calc 90.85, Est GFR (MDRD) Af Amer 102, Est GFR (MDRD) Non-Af 84, BUN/Creatinine Ratio 10.1, Glucose 116 H, Calcium 9.5 11/20/20 13:59: WBC 3.9 L, RBC 4.30 L, Hgb 14.0, Hct 37.3 L, MCV 86.7, MCH 32.6 H, MCHC 37.5 H, RDW Std Deviation 33.4 L, RDW Coeff of Sheryl 10.7 L, Plt Count 88 L, MPV 11.8, Immature Gran % (Auto) 0.300, Neut % (Auto) 73.7 H, Lymph % (Auto) 11.3 L, [place] % (Auto) 14.4 H, Eos % (Auto) 0.0, Baso % (Auto) 0.3, Absolute Neuts (auto) 2.9, Absolute Lymphs (auto) 0.44 L, Nucleated RBC % 0, Differential Comment SEE COMMENT, Diff Path Review January foll, Platelet Estimate MOD DEC, RBC Morphology N CHROM, Anisocytosis RARE 11/20/20 15:10: Ethyl Alcohol 57.0 11/20/20 20:10: Total Bilirubin 0.80, Direct Bilirubin 0.35 H, AST 221 H, ALT 229 H, Alkaline Phosphatase 88, Total Protein 7.0, Albumin 3.7, Globulin 3.3 11/20/20 20:10: Sodium 118 L*, Potassium 2.2 L*, Chloride 75 L, Carbon Dioxide 34.0 H, Anion Gap 9, BUN 9, Creatinine 0.94, Estim Creat Clear Calc 95.68, Est GFR (MDRD) Af Amer 107, Est GFR (MDRD) Non-Af 89, BUN/Creatinine Ratio 9.6 L, Glucose 144 H, Calcium 8.3 L, Magnesium 1.6 11/20/20 23:35: Sodium 119 L*, Potassium 2.8 L, Chloride 80 L, Carbon Dioxide 33.0 H, Anion Gap 6, BUN 9, Creatinine 0.82, Estim Creat Clear Calc 109.68, Est GFR (MDRD) Af Amer 127, Est GFR (MDRD) Non-Af 105, BUN/Creatinine Ratio 11.0, Glucose 95, Calcium 8.7 11/21/20 04:25: WBC 2.2 L, RBC 3.97 L, Hgb 12.8 L, Hct 35.2 L, MCV 88.7, MCH 32.2 H, MCHC 36.4 H, RDW Std Deviation 34.9 L, RDW Coeff of Sheryl 10.8 L, Plt Count 74 L, MPV 11.2, Immature Gran % (Auto) 0.500, Neut % (Auto) 68.4, Lymph % (Auto) 15.3 L, [place] % (Auto) 15.3 H, Eos % (Auto) 0.5, Baso % (Auto) 0.0, Absolute Neuts (auto) 1.5 L, Absolute Lymphs (auto) 0.33 L, Nucleated RBC % 0, Differential Comment SCANNED, Diff Path Review January cristina, Platelet Estimate MOD 11/21/20 04:25: Sodium 125 L, Potassium 2.5 L*, Chloride 81 L, Carbon Dioxide 36.0 H, Anion Gap 8, BUN 9, Creatinine 0.76, Estim Creat Clear Calc 118.34, Est GFR (MDRD) Af Amer 138, Est GFR (MDRD) Non-Af 114, BUN/Creatinine Ratio 11.9, Glucose 97, Calcium 8.8, Total Bilirubin 1.00, AST 198 H, ALT 221 H, Alkaline Phosphatase 92, Total Protein 7.2, Albumin 3.8, Globulin 3.4, Albumin/Globulin Ratio 1.1 Current Medications Acetaminophen (Acetaminophen 500 Mg Tablet) 500 mg PO Q4H PRN PRN PRN Reason: Temp > 100.4 F Al Hydroxide/Mg Hydroxide (Mag Hydrox/Al Hydrox/Simeth 30 Ml Udc) 30 ml PO Q6H PRN PRN PRN Reason: Gastric Burning Amlodipine Besylate (Amlodipine 5 Mg Tablet) 5 mg PO DAILY [facility] Atorvastatin Calcium (Atorvastatin Calcium 80 Mg Tablet) 80 mg PO QHS [facility] Last Admin: 11/20/20 20:31 Dose: 80 mg Documented by: Dicyclomine HCl (Dicyclomine 10 Mg Capsule) 20 mg PO Q6H PRN PRN PRN Reason: abdominal discomfort Enoxaparin Sodium (Enoxaparin 40 Mg/0.4 Ml Syringe) 40 mg SC DAILY [facility] Fluoxetine HCl (Fluoxetine 10 Mg Capsule) 10 mg PO BID [facility] Last Admin: 11/20/20 20:31 Dose: 10 mg Documented by: Folic Acid (Folic Acid 1 Mg Tablet) 1 mg PO DAILY@0800 [facility] Gabapentin (Gabapentin 300 Mg Capsule) 300 mg PO Q8H PRN PRN PRN Reason: moderate to severe anxiety Hydroxyzine Pamoate (Hydroxyzine Freya 25 Mg Capsule) 50 mg PO Q4H PRN PRN PRN Reason: mild anxiety Sodium Chloride () 1,000 mls @ 50 mls/hr IV .Q20H [facility] Last Infusion: 11/20/20 22:38 Dose: 50 mls/hr Documented by: Potassium Chloride () 10 meq in 100 mls @ 100 mls/hr IV BOLUS Q1H [facility] Stop: 11/21/20 10:14 Last Admin: 11/21/20 06:56 Dose: 100 mls/hr Documented by: Ibuprofen (Ibuprofen 600 Mg Tablet) 600 mg PO Q8H PRN PRN PRN Reason: PAIN Lisinopril (Lisinopril 40 Mg Tablet) 40 mg PO DAILY [facility] Loperamide HCl (Loperamide 2 Mg Capsule) 2 mg PO Q4H PRN PRN PRN Reason: LOOSE STOOLS Lorazepam (Lorazepam 1 Mg Tablet) 2 mg PO Q2H PRN PRN; Protocol PRN Reason: CIWA score > 8 but <15 Lorazepam (Lorazepam 1 Mg Tablet) 2 mg PO UD PRN; Protocol PRN Reason: CIWA score >/=15. Lorazepam (Lorazepam 2 Mg/Ml Syringe) 2 mg IV Q2H PRN PRN; Protocol PRN Reason: CIWA score > 8 but <15 Lorazepam (Lorazepam 2 Mg/Ml Syringe) 2 mg IV UD PRN; Protocol PRN Reason: CIWA score >/=15. Magnesium Hydroxide (Magnesium Hydroxide 30 Ml Udc) 30 ml PO DAILY PRN PRN PRN Reason: Constipation Multivitamins/Minerals (Multivitamins,Ther [facility]als [facility]) [facility] Nicotine (Nicotine 21 Mg Patch) 21 mg TD DAILY [facility] Nicotine Polacrilex (Nicotine Polacrilex 2 Mg Gum) 2 mg PO Q2H PRN PRN PRN Reason: Nicotine Craving Ondansetron HCl (Ondansetron 4 Mg/2 Ml Vial) 4 mg IV Q8H PRN PRN PRN Reason: NAUSEA/VOMITING Ondansetron HCl (Ondansetron 8 Mg Tablet) 8 mg PO Q8H PRN PRN PRN Reason: NAUSEA Phenobarbital (Phenobarbital 32.4 Mg Tablet) 97.2 mg PO Q4H [facility]; Taper Stop: 11/25/20 03:59 Last Admin: 11/21/20 04:30 Dose: 97.2 mg Documented by: Potassium Chloride (Potassium Chloride Oral Tablet 20 Meq) 20 meq PO DAILY [facility] Last Admin: 11/21/20 06:49 Dose: 20 meq Documented by: Senna/Docusate Sodium (Senna/Docusate Sodium 1 Tablet) 2 tablet PO BID PRN PRN Reason: Constipation Sodium Bicarbonate (Sodium Bicarbonate 650 Mg Tablet) 325 mg PO BID [facility] Last Admin: 11/20/20 20:30 Dose: 325 mg Documented by: Sodium Chloride (0.9% Saline Lock 10 Ml Syringe) 10 - 40 ml IV UD PRN PRN Reason: SALINE FLUSH Last Admin: 11/21/20 04:31 Dose: 10 ml Documented by: Thiamine HCl (Thiamine Hydrochloride 100 Mg Tablet) 100 mg PO DAILYCM [facility] Trazodone HCl (Trazodone 100 Mg Tablet) 100 mg PO QHS PRN PRN Reason: INSOMNIA Clinical Impression(s) from Imaging Studies Brain CT 11/20/20 15:04 IMPRESSION: Normal unenhanced CT scan of the brain. Electronically Signed: Dennis Ocampo MD at 16:09 EDT Tel , Service support , Cervical Spine CT 11/20/20 15:04 IMPRESSION: No acute fracture or subluxation. Electronically Signed: Dennis Ocampo MD at 16:17 EDT Tel , Service support , Chest X-Ray 11/20/20 15:04 IMPRESSION: Normal x-ray examination of the chest. Electronically Signed: Dennis Ocampo MD at 16:07 EDT Tel , Service support , Facial/Sinus 11/20/20 15:10 IMPRESSION: Normal unenhanced CT of the facial bones. Electronically Signed: Dennis Ocampo MD at 16:15 EDT Tel , Service support , Assessment/Plan Active and Suspected Problems (Last Reviewed 11/20/20 @ 09:31 by Liseth Adame) Recurrent syncope (Acute) RECOMMENDATIONS: 1. Aggressive electrolyte repletion 2. Continue telemetry monitoring 3. Alcohol withdrawal protocol 4. Continue NUHA therapy IMPRESSIONS: 1. Recurrent syncope secondary to hypovolemic hyponatremia/hypokalemia Clinical suspicion for electrolyte abnormality secondary to alcohol ingestion. Patient has had multiple repletion's ordered. Significant potassium is still necessary. Patient has responded well to IV fluids for hyponatremia. Will likely ultimately require alcohol cessation to avoid recurrence. Continue with telemetry to monitor for arrhythmia until potassium is improved. Possibly transfer out of the intensive care unit once potassium is greater than 3. 2. Alcohol abuse with history of DTs Patient currently on alcohol withdrawal protocol with thiamine, folate and phenobarbital. This appears to be doing well. CIWA protocol with Ativan as needed. 3. Hypertension/hyperlipidemia/NUHA/recent falls Complicates care, management, recovery and prognosis. Patient diagnosed with obstructive sleep apnea as an outpatient and can continue with AutoPap here. Okay to continue with baseline medications from my perspective. Inpatient E&M: 89012 Init Hosp L3
[2020-11-21] MEDS: Thiamine Hydrochloride 100 MG Tablet PO (08:00)
[2020-11-21] MEDS: Folic Acid 1 MG Tablet PO (08:00)
[2020-11-21] MEDS: Multivitamins,Ther W-Minerals Tablet 1 TABLET PO (08:00)
--- NOTE | 2020-11-21 09:41 | PCM.PN.HOSP ---
Patient Problems: Active and Suspected Problems (Last Reviewed 11/20/20 @ 09:31 by Liseth Adame) Recurrent syncope (Acute) Subjective: Much better today, presented alcohol abuse with electrolyte abnormalities. Vitals/I&O's: Vital Signs Temp Pulse Resp BP Pulse Ox 97.8 F 70 16 131/88 H 99 11/21/20 08:01 11/21/20 08:01 11/21/20 08:01 11/21/20 08:01 11/21/20 08:01 Oxygen Delivery Method Room Air Weight: 173 lb 1.006 oz Body Mass Index (BMI) 24.6 Intake and Output for Last 24 Hours 11/19/20 11/20/20 11/21/20 23:59 23:59 23:59 Intake Total 1453.80 / 1453.80 391.67 / 391.67 Output Total 375 / 375 1575 / 1575 Balance 1078.80 / 1078.80 -1183.33 / -1183.33 General: Alert, Oriented x3, Cooperative, No apparent distress HEENT: PERRLA, EOMI, Normocephalic, - - Bilateral periorbital ecchymosis Oral: Moist Mucosa Neck: Supple, No JVD Lungs: Clear to auscultation, Normal air movement, No rhonchi, No wheeze, No rales, Diminished Cardiovascular: Regular rate, Regular Rhythm, Normal S1, Normal S2, No murmurs Abdomen: Soft, Non Tender, Non-Distended, No Hepato-splenomegaly Extremities: No edema, Capillary Refill Less than 3 Seconds Skin: No rashes, No breakdown Neurological: Neuro grossly intact, Sensory exam intact to light touch and pain Psych/Mental Status: Normal Affect, Appropriate Laboratory Results 11/20/20 13:59: Sodium 109 L*, Potassium 2.1 L*, Chloride 64 L*, Carbon Dioxide 32.0, Anion Gap 13, BUN 10, Creatinine 0.99, Estim Creat Clear Calc 90.85, Est GFR (MDRD) Af Amer 102, Est GFR (MDRD) Non-Af 84, BUN/Creatinine Ratio 10.1, Glucose 116 H, Calcium 9.5 11/20/20 13:59: WBC 3.9 L, RBC 4.30 L, Hgb 14.0, Hct 37.3 L, MCV 86.7, MCH 32.6 H, MCHC 37.5 H, RDW Std Deviation 33.4 L, RDW Coeff of Sheryl 10.7 L, Plt Count 88 L, MPV 11.8, Immature Gran % (Auto) 0.300, Neut % (Auto) 73.7 H, Lymph % (Auto) 11.3 L, [place] % (Auto) 14.4 H, Eos % (Auto) 0.0, Baso % (Auto) 0.3, Absolute Neuts (auto) 2.9, Absolute Lymphs (auto) 0.44 L, Nucleated RBC % 0, Differential Comment SEE COMMENT, Diff Path Review January foll, Platelet Estimate MOD DEC, RBC Morphology N CHROM, Anisocytosis RARE 11/20/20 15:10: Ethyl Alcohol 57.0 11/20/20 20:10: Total Bilirubin 0.80, Direct Bilirubin 0.35 H, AST 221 H, ALT 229 H, Alkaline Phosphatase 88, Total Protein 7.0, Albumin 3.7, Globulin 3.3 11/20/20 20:10: Sodium 118 L*, Potassium 2.2 L*, Chloride 75 L, Carbon Dioxide 34.0 H, Anion Gap 9, BUN 9, Creatinine 0.94, Estim Creat Clear Calc 95.68, Est GFR (MDRD) Af Amer 107, Est GFR (MDRD) Non-Af 89, BUN/Creatinine Ratio 9.6 L, Glucose 144 H, Calcium 8.3 L, Magnesium 1.6 11/20/20 23:35: Sodium 119 L*, Potassium 2.8 L, Chloride 80 L, Carbon Dioxide 33.0 H, Anion Gap 6, BUN 9, Creatinine 0.82, Estim Creat Clear Calc 109.68, Est GFR (MDRD) Af Amer 127, Est GFR (MDRD) Non-Af 105, BUN/Creatinine Ratio 11.0, Glucose 95, Calcium 8.7 11/21/20 04:25: WBC 2.2 L, RBC 3.97 L, Hgb 12.8 L, Hct 35.2 L, MCV 88.7, MCH 32.2 H, MCHC 36.4 H, RDW Std Deviation 34.9 L, RDW Coeff of Sheryl 10.8 L, Plt Count 74 L, MPV 11.2, Immature Gran % (Auto) 0.500, Neut % (Auto) 68.4, Lymph % (Auto) 15.3 L, [place] % (Auto) 15.3 H, Eos % (Auto) 0.5, Baso % (Auto) 0.0, Absolute Neuts (auto) 1.5 L, Absolute Lymphs (auto) 0.33 L, Nucleated RBC % 0, Differential Comment SCANNED, Diff Path Review January, Platelet Estimate MOD 11/21/20 04:25: Sodium 125 L, Potassium 2.5 L*, Chloride 81 L, Carbon Dioxide 36.0 H, Anion Gap 8, BUN 9, Creatinine 0.76, Estim Creat Clear Calc 118.34, Est GFR (MDRD) Af Amer 138, Est GFR (MDRD) Non-Af 114, BUN/Creatinine Ratio 11.9, Glucose 97, Calcium 8.8, Total Bilirubin 1.00, AST 198 H, ALT 221 H, Alkaline Phosphatase 92, Total Protein 7.2, Albumin 3.8, Globulin 3.4, Albumin/Globulin Ratio 1.1 Current Medications Acetaminophen (Acetaminophen 500 Mg Tablet) 500 mg PO Q4H PRN PRN PRN Reason: Temp > 100.4 F Al Hydroxide/Mg Hydroxide (Mag Hydrox/Al Hydrox/Simeth 30 Ml Udc) 30 ml PO Q6H PRN PRN PRN Reason: Gastric Burning Amlodipine Besylate (Amlodipine 5 Mg Tablet) 5 mg PO DAILY [facility] Atorvastatin Calcium (Atorvastatin Calcium 80 Mg Tablet) 80 mg PO QHS [facility] Last Admin: 11/20/20 20:31 Dose: 80 mg Documented by: Dicyclomine HCl (Dicyclomine 10 Mg Capsule) 20 mg PO Q6H PRN PRN PRN Reason: abdominal discomfort Fluoxetine HCl (Fluoxetine 10 Mg Capsule) 10 mg PO BID [facility] Last Admin: 11/20/20 20:31 Dose: 10 mg Documented by: Folic Acid (Folic Acid 1 Mg Tablet) 1 mg PO DAILY@0800 [facility] Last Admin: 11/21/20 08:00 Dose: 1 mg Documented by: Gabapentin (Gabapentin 300 Mg Capsule) 300 mg PO Q8H PRN PRN PRN Reason: moderate to severe anxiety Hydroxyzine Pamoate (Hydroxyzine Freya 25 Mg Capsule) 50 mg PO Q4H PRN PRN PRN Reason: mild anxiety Sodium Chloride () 1,000 mls @ 50 mls/hr IV .Q20H [facility] Last Admin: 11/21/20 08:59 Dose: Not Given Documented by: Potassium Chloride () 10 meq in 100 mls @ 100 mls/hr IV BOLUS Q1H [facility] Stop: 11/21/20 10:14 Last Admin: 11/21/20 08:57 Dose: 100 mls/hr Documented by: Ibuprofen (Ibuprofen 600 Mg Tablet) 600 mg PO Q8H PRN PRN PRN Reason: PAIN Lisinopril (Lisinopril 40 Mg Tablet) 40 mg PO DAILY [facility] Loperamide HCl (Loperamide 2 Mg Capsule) 2 mg PO Q4H PRN PRN PRN Reason: LOOSE STOOLS Lorazepam (Lorazepam 1 Mg Tablet) 2 mg PO Q2H PRN PRN; Protocol PRN Reason: CIWA score > 8 but <15 Lorazepam (Lorazepam 1 Mg Tablet) 2 mg PO UD PRN; Protocol PRN Reason: CIWA score >/=15. Lorazepam (Lorazepam 2 Mg/Ml Syringe) 2 mg IV Q2H PRN PRN; Protocol PRN Reason: CIWA score > 8 but <15 Lorazepam (Lorazepam 2 Mg/Ml Syringe) 2 mg IV UD PRN; Protocol PRN Reason: CIWA score >/=15. Magnesium Hydroxide (Magnesium Hydroxide 30 Ml Udc) 30 ml PO DAILY PRN PRN PRN Reason: Constipation Multivitamins/Minerals ([facility]ivitamins,Ther [facility]als [facility]) [facility] Last Admin: 11/21/20 08:00 Dose: 1 tablet Documented by: Nicotine (Nicotine 21 Mg Patch) 21 mg TD DAILY [facility] Nicotine Polacrilex (Nicotine Polacrilex 2 Mg Gum) 2 mg PO Q2H PRN PRN PRN Reason: Nicotine Craving Ondansetron HCl (Ondansetron 4 Mg/2 Ml Vial) 4 mg IV Q8H PRN PRN PRN Reason: NAUSEA/VOMITING Ondansetron HCl (Ondansetron 8 Mg Tablet) 8 mg PO Q8H PRN PRN PRN Reason: NAUSEA Phenobarbital (Phenobarbital 32.4 Mg Tablet) 97.2 mg PO Q4H [facility]; Taper Stop: 11/25/20 03:59 Last Admin: 11/21/20 08:00 Dose: 97.2 mg Documented by: Potassium Chloride (Potassium Chloride Oral Tablet 20 Meq) 20 meq PO DAILY [facility] Last Admin: 11/21/20 06:49 Dose: 20 meq Documented by: Senna/Docusate Sodium (Senna/Docusate Sodium 1 Tablet) 2 tablet PO BID PRN PRN Reason: Constipation Sodium Bicarbonate (Sodium Bicarbonate 650 Mg Tablet) 325 mg PO BID [facility] Last Admin: 11/20/20 20:30 Dose: 325 mg Documented by: Sodium Chloride (0.9% Saline Lock 10 Ml Syringe) 10 - 40 ml IV UD PRN PRN Reason: SALINE FLUSH Last Admin: 11/21/20 04:31 Dose: 10 ml Documented by: Thiamine HCl (Thiamine Hydrochloride 100 Mg Tablet) 100 mg PO DAILYCM [facility] Last Admin: 11/21/20 08:00 Dose: 100 mg Documented by: Trazodone HCl (Trazodone 100 Mg Tablet) 100 mg PO QHS PRN PRN Reason: INSOMNIA STROKE Vital Signs/Narrative: Vital Signs Temp Pulse Resp BP BP Pulse Ox 11/21/20 08:01 97.8 F 70 16 131/88 H 99 11/21/20 07:30 77 11/21/20 07:17 98 11/21/20 06:00 68 13 135/86 H 100 Medical Necessity - Tobacco Use Smoking Status: Current every day smoker Tobacco Use: Chew Assessment/Plan All Active Problems (Last Reviewed 11/20/20 @ 09:31 by Liseth Adame) Recurrent syncope (Acute) Seizure (Resolved) Alcohol withdrawal (Resolved) Right inguinal hematoma (Resolved) 1. Recurrent syncope secondary to severe hypovolemic hyponatremia with hypokalemia secondary to chronic alcohol abuse -Sodium on admission was 109 this has been corrected and his potassium is also being aggressively replaced -He has had alcohol withdrawal seizures in the past, will continue with phenobarbital and the alcohol withdrawal protocol however he states that his has her birthday on Tuesday so he is leaving absolutely 100% tomorrow I told him that that would be unsafe he responded that he did not care and that he would leave AMA if he had to 2. HTN/HLD -Blood pressure is stable -Continue with Norvasc, lisinopril, statin 3. History of NUHA -Continue with CPAP -Needs a sleep study as an outpatient, does see pulmonology DVT: Lovenox Inpatient E&M: 24987 Subs Hosp L2
--- NOTE | 2020-11-21 09:45 | CASEMGMT ---
ARELY FISHER Assessment: Face to Face with pt for initial transition planning/care coordination assessment. RN NATALIA introduced self and role at [facility], pt voices understanding and consents to assessment. Pt is sitting up in bed on RA in no distress. Pt is A/O x4 and answers all questions appropriately at this time. Care providers, pharmacy, and demographics verified/updated. Admitting Dx: electrolyte imbalances, ETOH w/d PCP: Dr. Coker Specialists: Pt states he has specialists but does not know their names. States one is a neurologist, which is who sent him to the hospital. Preferred Pharmacy: [facility] Insurance: [place], [facility] Prescription Benefit: yes LW/HPOA: Pt denies LW and HPOA and denies need for any information regarding them. LNOK: Desi Fuentes Living Arrangements: Pt lives in a one story house with 4 steps to enter with rail. He lives with his and oldest step dtr. Pt states he is I in ADL's and denies any concerns at home. Transportation: Pt drives self and no issues with transportation. DME/HHC/SNF: Pt states he does not have any DME in the home. He has no previous HHC or SNF stays. Pt reports currently being unemployed. He reports no concerns with going home at time of dc. Pt states no further concerns/needs. CM to follow. Advised pt to ask CM if any further question/concerns/needs arise, voices understanding. Pt Goal: Home Plan: Home with family support
[2020-11-21] MEDS: FLUoxetine 10 MG Capsule PO ×2 (10:14→21:32)
[2020-11-21] MEDS: Sodium Bicarbonate 650 MG Tablet 325 MG PO ×2 (10:14→21:31)
[2020-11-21] MEDS: amLODIPine 5 MG Tablet PO (10:15)
[2020-11-21] MEDS: Lisinopril 40 MG Tablet PO (10:15)
[2020-11-21 11:21] LABS: Pathologist Review Reviewed
[2020-11-21 11:23] LABS: Pathologist Review Reviewed
--- NOTE | 2020-11-21 11:36 | CON.PCM_ITS ---
Consultation - Renal 11/21/20 PCP/ Referring MD: Requesting physician: [] Primary care physician: Dr. Rupert Coker MD - History of Present Illness History of Present Illness: The patient is a 55 year old chronic alcjholic with low solute excretion admitted with Recurrent syncope secondary to severe hypovolemic hyponatremia with hypokalemia secondary to chronic alcohol abuse,Sodium on admission was 109 this has been corrected and his potassium is also being aggressively replaced with Na 109-112-125.AOx3 - Allergies Allergies: Allergies No Known Allergies Allergy (Verified 11/20/20 13:53) - Current Medications Current Medications: Current Medications Acetaminophen (Acetaminophen 500 Mg Tablet) 500 mg PO Q4H PRN PRN PRN Reason: Temp > 100.4 F Al Hydroxide/Mg Hydroxide (Mag Hydrox/Al Hydrox/Simeth 30 Ml Udc) 30 ml PO Q6H PRN PRN PRN Reason: Gastric Burning Amlodipine Besylate (Amlodipine 5 Mg Tablet) 5 mg PO DAILY [facility] Last Admin: 11/21/20 10:15 Dose: 5 mg Documented by: Atorvastatin Calcium (Atorvastatin Calcium 80 Mg Tablet) 80 mg PO QHS [facility] Last Admin: 11/20/20 20:31 Dose: 80 mg Documented by: Dicyclomine HCl (Dicyclomine 10 Mg Capsule) 20 mg PO Q6H PRN PRN PRN Reason: abdominal discomfort Fluoxetine HCl (Fluoxetine 10 Mg Capsule) 10 mg PO BID [facility] Last Admin: 11/21/20 10:14 Dose: 10 mg Documented by: Folic Acid (Folic Acid 1 Mg Tablet) 1 mg PO DAILY@0800 [facility] Last Admin: 11/21/20 08:00 Dose: 1 mg Documented by: Gabapentin (Gabapentin 300 Mg Capsule) 300 mg PO Q8H PRN PRN PRN Reason: moderate to severe anxiety Hydroxyzine Pamoate (Hydroxyzine Freya 25 Mg Capsule) 50 mg PO Q4H PRN PRN PRN Reason: mild anxiety Sodium Chloride () 1,000 mls @ 50 mls/hr IV .Q20H [facility] Last Admin: 11/21/20 08:59 Dose: Not Given Documented by: Ibuprofen (Ibuprofen 600 Mg Tablet) 600 mg PO Q8H PRN PRN PRN Reason: PAIN Lisinopril (Lisinopril 40 Mg Tablet) 40 mg PO DAILY [facility] Last Admin: 11/21/20 10:15 Dose: 40 mg Documented by: Loperamide HCl (Loperamide 2 Mg Capsule) 2 mg PO Q4H PRN PRN PRN Reason: LOOSE STOOLS Lorazepam (Lorazepam 1 Mg Tablet) 2 mg PO Q2H PRN PRN; Protocol PRN Reason: CIWA score > 8 but <15 Lorazepam (Lorazepam 1 Mg Tablet) 2 mg PO UD PRN; Protocol PRN Reason: CIWA score >/=15. Lorazepam (Lorazepam 2 Mg/Ml Syringe) 2 mg IV Q2H PRN PRN; Protocol PRN Reason: CIWA score > 8 but <15 Lorazepam (Lorazepam 2 Mg/Ml Syringe) 2 mg IV UD PRN; Protocol PRN Reason: CIWA score >/=15. Magnesium Hydroxide (Magnesium Hydroxide 30 Ml Udc) 30 ml PO DAILY PRN PRN PRN Reason: Constipation Multivitamins/Minerals (Multivitamins,Ther W-Minerals Tablet) [facility] Last Admin: 11/21/20 08:00 Dose: 1 tablet Documented by: Nicotine (Nicotine 21 Mg Patch) 21 mg TD DAILY [facility] Last Admin: 11/21/20 10:15 Dose: Not Given Documented by: Nicotine Polacrilex (Nicotine Polacrilex 2 Mg Gum) 2 mg PO Q2H PRN PRN PRN Reason: Nicotine Craving Ondansetron HCl (Ondansetron 4 Mg/2 Ml Vial) 4 mg IV Q8H PRN PRN PRN Reason: NAUSEA/VOMITING Ondansetron HCl (Ondansetron 8 Mg Tablet) 8 mg PO Q8H PRN PRN PRN Reason: NAUSEA Phenobarbital (Phenobarbital 32.4 Mg Tablet) 97.2 mg PO Q4H [facility]; Taper Stop: 11/25/20 03:59 Last Admin: 11/21/20 08:00 Dose: 97.2 mg Documented by: Potassium Chloride (Potassium Chloride Oral Tablet 20 Meq) 20 meq PO DAILY [facility] Last Admin: 11/21/20 06:49 Dose: 20 meq Documented by: Senna/Docusate Sodium (Senna/Docusate Sodium 1 Tablet) 2 tablet PO BID PRN PRN Reason: Constipation Sodium Bicarbonate (Sodium Bicarbonate 650 Mg Tablet) 325 mg PO BID [facility] Last Admin: 11/21/20 10:14 Dose: 325 mg Documented by: Sodium Chloride (0.9% Saline Lock 10 Ml Syringe) 10 - 40 ml IV UD PRN PRN Reason: SALINE FLUSH Last Admin: 11/21/20 04:31 Dose: 10 ml Documented by: Thiamine HCl (Thiamine Hydrochloride 100 Mg Tablet) 100 mg PO DAILY[facility] Last Admin: 11/21/20 08:00 Dose: 100 mg Documented by: Trazodone HCl (Trazodone 100 Mg Tablet) 100 mg PO QHS PRN PRN Reason: INSOMNIA - Past Medical History Past Medical History (Chronic Problems): Chronic Problems (Last Reviewed 11/20/20 @ 09:31 by Liseth Adame) Essential (primary) hypertension (Chronic) HLD (hyperlipidemia) (Chronic) Hyponatremia (Chronic) Hypokalemia (Chronic) Tobacco use (Chronic) Elevated LFTs (Chronic) NUHA (obstructive sleep apnea) (Chronic) Chronic alcohol dependence, continuous (Chronic) - Past Surgical History Surgical History: herniorrhaphy - Social History Smoking Status: Current every day smoker Alcohol: Heavy Drugs: None - Family History Maternal Family History: Family History (Last Reviewed 11/20/20 @ 09:31 by Liseth Adame) Mother Asthma History Items: Asthma, Diabetes, Heart Disease Paternal Family History: Family History (Last Reviewed 11/20/20 @ 09:31 by Liseth Adame) Mother Asthma History Items: Diabetes, Heart Disease Review of Systems Constitutional: Denies: Chills, Fever, Weight Change HEENT: Denies: Head Aches, Sinus Congestion, Sinus Drainage Cardiovascular: Reports: Chest Pain Respiratory: Denies: Cough, Shortness of breath at rest, Sputum production Gastrointestinal: Denies: Abdominal Pain, Nausea, Vomiting Genitourinary: Denies: Dysuria Musculoskeletal: Reports: Arm Pain Skin: Denies: Rash, Wounds Neurological: Denies: Numbness, Tingling, Focal weakness Patient Problems: Active and Suspected Problems (Last Reviewed 11/20/20 @ 09:31 by Liseth Adame) Recurrent syncope (Acute) - Physical Exam Vitals/I&O's: Vital Signs Temp Pulse Resp BP Pulse Ox 97.8 F 72 16 134/38 H 97 11/21/20 08:01 11/21/20 11:00 11/21/20 11:00 11/21/20 11:00 11/21/20 11:00 Oxygen Delivery Method Room Air Weight: 78.5 kg Body Mass Index (BMI) 24.6 Intake and Output for Last 24 Hours 11/19/20 11/20/20 11/21/20 23:59 23:59 23:59 Intake Total 1453.80 / 1453.80 591.67 / 591.67 Output Total 375 / 375 1575 / 1575 Balance 1078.80 / 1078.80 -983.33 / -983.33 General: Alert HEENT: Atraumatic - has echymosis on rt eye, PERRLA, EOMI, Normocephalic Neck: Supple Lungs: Clear to auscultation Cardiovascular: Regular rate Laboratory Results 11/20/20 13:59: Sodium 109 L*, Potassium 2.1 L*, Chloride 64 L*, Carbon Dioxide 32.0, Anion Gap 13, BUN 10, Creatinine 0.99, Estim Creat Clear Calc 90.85, Est GFR (MDRD) Af Amer 102, Est GFR (MDRD) Non-Af 84, BUN/Creatinine Ratio 10.1, Glucose 116 H, Calcium 9.5 11/20/20 13:59: WBC 3.9 L, RBC 4.30 L, Hgb 14.0, Hct 37.3 L, MCV 86.7, MCH 32.6 H, MCHC 37.5 H, RDW Std Deviation 33.4 L, RDW Coeff of Sheryl 10.7 L, Plt Count 88 L, MPV 11.8, Immature Gran % (Auto) 0.300, Neut % (Auto) 73.7 H, Lymph % (Auto) 11.3 L, [place] % (Auto) 14.4 H, Eos % (Auto) 0.0, Baso % (Auto) 0.3, Absolute Neuts (auto) 2.9, Absolute Lymphs (auto) 0.44 L, Nucleated RBC % 0, Differential Comment SEE COMMENT, Diff Path Review Reviewed, Platelet Estimate MOD DEC, RBC Morphology N CHROM, Anisocytosis RARE 11/20/20 15:10: Ethyl Alcohol 57.0 11/20/20 20:10: Total Bilirubin 0.80, Direct Bilirubin 0.35 H, AST 221 H, ALT 229 H, Alkaline Phosphatase 88, Total Protein 7.0, Albumin 3.7, Globulin 3.3 11/20/20 20:10: Sodium 118 L*, Potassium 2.2 L*, Chloride 75 L, Carbon Dioxide 34.0 H, Anion Gap 9, BUN 9, Creatinine 0.94, Estim Creat Clear Calc 95.68, Est GFR (MDRD) Af Amer 107, Est GFR (MDRD) Non-Af 89, BUN/Creatinine Ratio 9.6 L, Glucose 144 H, Calcium 8.3 L, Magnesium 1.6 11/20/20 23:35: Sodium 119 L*, Potassium 2.8 L, Chloride 80 L, Carbon Dioxide 33.0 H, Anion Gap 6, BUN 9, Creatinine 0.82, Estim Creat Clear Calc 109.68, Est GFR (MDRD) Af Amer 127, Est GFR (MDRD) Non-Af 105, BUN/Creatinine Ratio 11.0, Glucose 95, Calcium 8.7 11/21/20 04:25: WBC 2.2 L, RBC 3.97 L, Hgb 12.8 L, Hct 35.2 L, MCV 88.7, MCH 32.2 H, MCHC 36.4 H, RDW Std Deviation 34.9 L, RDW Coeff of Sheryl 10.8 L, Plt Count 74 L, MPV 11.2, Immature Gran % (Auto) 0.500, Neut % (Auto) 68.4, Lymph % (Auto) 15.3 L, [place] % (Auto) 15.3 H, Eos % (Auto) 0.5, Baso % (Auto) 0.0, Absolute Neuts (auto) 1.5 L, Absolute Lymphs (auto) 0.33 L, Nucleated RBC % 0, Differential Comment SCANNED, Diff Path Review Reviewed, Platelet Estimate MOD 11/21/20 04:25: Sodium 125 L, Potassium 2.5 L*, Chloride 81 L, Carbon Dioxide 36.0 H, Anion Gap 8, BUN 9, Creatinine 0.76, Estim Creat Clear Calc 118.34, Est GFR (MDRD) Af Amer 138, Est GFR (MDRD) Non-Af 114, BUN/Creatinine Ratio 11.9, Glucose 97, Calcium 8.8, Total Bilirubin 1.00, AST 198 H, ALT 221 H, Alkaline Phosphatase 92, Total Protein 7.2, Albumin 3.8, Globulin 3.4, Albumin/Globulin Ratio 1.1 Current Medications Acetaminophen (Acetaminophen 500 Mg Tablet) 500 mg PO Q4H PRN PRN PRN Reason: Temp > 100.4 F Al Hydroxide/Mg Hydroxide (Mag Hydrox/Al Hydrox/Simeth 30 Ml Udc) 30 ml PO Q6H PRN PRN PRN Reason: Gastric Burning Amlodipine Besylate (Amlodipine 5 Mg Tablet) 5 mg PO DAILY [facility] Last Admin: 11/21/20 10:15 Dose: 5 mg Documented by: Atorvastatin Calcium (Atorvastatin Calcium 80 Mg Tablet) 80 mg PO QHS [facility] Last Admin: 11/20/20 20:31 Dose: 80 mg Documented by: Dicyclomine HCl (Dicyclomine 10 Mg Capsule) 20 mg PO Q6H PRN PRN PRN Reason: abdominal discomfort Fluoxetine HCl (Fluoxetine 10 Mg Capsule) 10 mg PO BID [facility] Last Admin: 11/21/20 10:14 Dose: 10 mg Documented by: Folic Acid (Folic Acid 1 Mg Tablet) 1 mg PO DAILY@0800 [facility] Last Admin: 11/21/20 08:00 Dose: 1 mg Documented by: Gabapentin (Gabapentin 300 Mg Capsule) 300 mg PO Q8H PRN PRN PRN Reason: moderate to severe anxiety Hydroxyzine Pamoate (Hydroxyzine Freya 25 Mg Capsule) 50 mg PO Q4H PRN PRN PRN Reason: mild anxiety Sodium Chloride () 1,000 mls @ 50 mls/hr IV .Q20H [facility] Last Admin: 11/21/20 08:59 Dose: Not Given Documented by: Ibuprofen (Ibuprofen 600 Mg Tablet) 600 mg PO Q8H PRN PRN PRN Reason: PAIN Lisinopril (Lisinopril 40 Mg Tablet) 40 mg PO DAILY [facility] Last Admin: 11/21/20 10:15 Dose: 40 mg Documented by: Loperamide HCl (Loperamide 2 Mg Capsule) 2 mg PO Q4H PRN PRN PRN Reason: LOOSE STOOLS Lorazepam (Lorazepam 1 Mg Tablet) 2 mg PO Q2H PRN PRN; Protocol PRN Reason: CIWA score > 8 but <15 Lorazepam (Lorazepam 1 Mg Tablet) 2 mg PO UD PRN; Protocol PRN Reason: CIWA score >/=15. Lorazepam (Lorazepam 2 Mg/Ml Syringe) 2 mg IV Q2H PRN PRN; Protocol PRN Reason: CIWA score > 8 but <15 Lorazepam (Lorazepam 2 Mg/Ml Syringe) 2 mg IV UD PRN; Protocol PRN Reason: CIWA score >/=15. Magnesium Hydroxide (Magnesium Hydroxide 30 Ml Udc) 30 ml PO DAILY PRN PRN PRN Reason: Constipation Multivitamins/Minerals (Multivitamins,Ther W-Minerals Tablet) [facility] Last Admin: 11/21/20 08:00 Dose: 1 tablet Documented by: Nicotine (Nicotine 21 Mg Patch) 21 mg TD DAILY [facility] Last Admin: 11/21/20 10:15 Dose: Not Given Documented by: Nicotine Polacrilex (Nicotine Polacrilex 2 Mg Gum) 2 mg PO Q2H PRN PRN PRN Reason: Nicotine Craving Ondansetron HCl (Ondansetron 4 Mg/2 Ml Vial) 4 mg IV Q8H PRN PRN PRN Reason: NAUSEA/VOMITING Ondansetron HCl (Ondansetron 8 Mg Tablet) 8 mg PO Q8H PRN PRN PRN Reason: NAUSEA Phenobarbital (Phenobarbital 32.4 Mg Tablet) 97.2 mg PO Q4H [facility]; Taper Stop: 11/25/20 03:59 Last Admin: 11/21/20 08:00 Dose: 97.2 mg Documented by: Potassium Chloride (Potassium Chloride Oral Tablet 20 Meq) 20 meq PO DAILY [facility] Last Admin: 11/21/20 06:49 Dose: 20 meq Documented by: Senna/Docusate Sodium (Senna/Docusate Sodium 1 Tablet) 2 tablet PO BID PRN PRN Reason: Constipation Sodium Bicarbonate (Sodium Bicarbonate 650 Mg Tablet) 325 mg PO BID [facility] Last Admin: 11/21/20 10:14 Dose: 325 mg Documented by: Sodium Chloride (0.9% Saline Lock 10 Ml Syringe) 10 - 40 ml IV UD PRN PRN Reason: SALINE FLUSH Last Admin: 11/21/20 04:31 Dose: 10 ml Documented by: Thiamine HCl (Thiamine Hydrochloride 100 Mg Tablet) [facility] Last Admin: 11/21/20 08:00 Dose: 100 mg Documented by: Trazodone HCl (Trazodone 100 Mg Tablet) 100 mg PO QHS PRN PRN Reason: INSOMNIA Assessment/Plan All Active Problems (Last Reviewed 11/20/20 @ 09:31 by Liseth Adame) Recurrent syncope (Acute) Seizure (Resolved) Alcohol withdrawal (Resolved) Right inguinal hematoma (Resolved) Hyponatremia hypovolemic hyponatremia with hypokalemia secondary to chronic alcohol abuse low solute excretion -Sodium on admission was 109 this has been corrected and his potassium is also being aggressively replaced - Na 125 now -start D5W 75ml/hr for 12 hrs -Goal for Na 110 2. HTN/HLD -Blood pressure is stable -Continue with Norvasc, statin _ hold lisinopril as it may cause hyponatremia
--- NOTE | 2020-11-21 12:08 | CASEMGMT ---
Social Work SW met with pt and introduced self and role of SW. Pt is sitting in bed, A&Ox3 and somewhat hesitant to speak to SW. As conversation progressed, pt more open to speaking with SW. Pt states he had been drinking 24 beers a day up until hospitalization in July 2020 and now is down to 6-12 beers a day. Pt admits that current hospitalization is likely due to drinking. Pt stating he is currently involved with [facility] and has meetings with Lindsey regularly. Pt also [facility] that he meets with via teleconference regularly. Pt states he has an upcoming appointment set with both [facility] and [facility]. Discussed advance directives with pt and he requested to complete documents at this time. SW assisted pt in completing living will and HCPOA naming his Desi [place]. Copy placed on pt chart and original given to pt. No further SW needs at this time. SW will remain available should needs arise. Plan: Followup with [facility] and [facility] after discharge. MYNOR Aguilar
[2020-11-21 13:51] LABS: Anion Gap 7 (5-15); BUN 13 mg/dL (7-18); BUN/Creat Ratio 14.6 RATIO (10-20); Calcium,Total 8.9 mg/dL (8.5-10.1); Chloride 86 mmol/L (98-107); Creatinine, Serum 0.89 mg/dL (0.70-1.30); EST Glomerular Filtration Rate 94 mL/min (>60); Est Glom Filt Rate - Afr Amer 114 mL/min (>60); Estimated Creatinine Clearance 101.06 ml/min; Glucose 169 mg/dL (74-106); Sodium Level 122 mmol/L (136-145)
[2020-11-21] MEDS: Potassium Chloride Oral Tablet 20 MEQ 40 MEQ PO (14:42)
[2020-11-21 20:14] LABS: Anion Gap 4 (5-15); BUN 15 mg/dL (7-18); BUN/Creat Ratio 14.6 RATIO (10-20); Calcium,Total 8.8 mg/dL (8.5-10.1); Chloride 85 mmol/L (98-107); Creatinine, Serum 1.03 mg/dL (0.70-1.30); EST Glomerular Filtration Rate 80 mL/min (>60); Est Glom Filt Rate - Afr Amer 97 mL/min (>60); Estimated Creatinine Clearance 87.32 ml/min; Glucose 136 mg/dL (74-106); Potassium 3.3 mmol/L (3.5-5.1); Sodium Level 123 mmol/L (136-145)
[2020-11-21] MEDS: Atorvastatin Calcium 80 MG Tablet PO (21:31)
[2020-11-22 00:18] VITALS: PULSE 81; RESP 16; O2SAT 98
[2020-11-22] MEDS: Phenobarbital 32.4 MG Tablet 64.8 MG PO ×3 (00:21→09:10)
[2020-11-22 00:25] VITALS: BP 146/91; PULSE 70; RESP 16; TEMP 36.9; O2SAT 100
[2020-11-22 02:12] VITALS: PULSE 74; RESP 14; O2SAT 98
[2020-11-22 04:44] VITALS: BP 127/87; PULSE 59; RESP 18; TEMP 36.4; O2SAT 99
[2020-11-22 05:37] VITALS: PULSE 73; RESP 13; O2SAT 98
--- NOTE | 2020-11-22 07:52 | PN_ITS ---
Subjective: Patient transferred out of the intensive care unit. Patient feels that he did well overnight. Patient was able to tolerate CPAP while sleeping. Patient is not reporting any palpitations, muscle cramps or abdominal pain. General: Alert, Oriented x3, Cooperative, No apparent distress, - - No conversational dyspnea HEENT: PERRLA, EOMI, Normocephalic, - - Slight scleral injection without icterus Oral: Moist Mucosa, No Gingival or Mucosal Lesions/ Ulcerations Neck: Supple, No JVD, No Nodes, Trachea Midline Lungs: No rhonchi, No wheeze, No rales, Diminished Cardiovascular: Regular rate, Regular Rhythm, Normal S1, Normal S2, No murmurs, No rub noted, No Gallop Abdomen: Bowel Sounds Present, Soft, Non Tender, Non-Distended Extremities: No clubbing, No cyanosis, No edema Skin: No rashes, No breakdown Musculoskeletal: No Tenderness to Palpation of Joints or Extremities Lymphatic: No Cervical, Supraclavicular, or Inguinal Adenopathy Neurological: Cranial nerves II-XII grossly intact, Neuro grossly intact, Motor Exam 5/5 strength throughout Psych/Mental Status: Alert and oriented to time, place, person, mood and affect Vital Signs Temp Pulse Resp BP Pulse Ox 36.4 C L 73 13 127/87 H 98 11/22/20 04:44 11/22/20 05:37 11/22/20 05:37 11/22/20 04:44 11/22/20 05:37 Oxygen Delivery Method CPAP Weight: 76.7 kg Body Mass Index (BMI) 24.6 Intake and Output for Last 24 Hours 11/20/20 11/21/20 11/22/20 23:59 23:59 23:59 Intake Total 1453.80 / 1453.80 2661.67 / 2661.67 1525 / 1525 Output Total 375 / 375 1575 / 1575 Balance 1078.80 / 1078.80 1086.67 / 1086.67 1525 / 1525 Labs (Last 48 Hours) 11/20/20 11/20/20 11/20/20 13:59 13:59 15:10 WBC 3.9 L RBC 4.30 L Hgb 14.0 Hct 37.3 L MCV 86.7 MCH 32.6 H MCHC 37.5 H RDW Std Deviation 33.4 L RDW Coeff of Sheryl 10.7 L Plt Count 88 L MPV 11.8 Immature Gran % (Auto) 0.300 Neut % (Auto) 73.7 H Lymph % (Auto) 11.3 L Mcleod % (Auto) 14.4 H Eos % (Auto) 0.0 Baso % (Auto) 0.3 Absolute Neuts (auto) 2.9 Absolute Lymphs (auto) 0.44 L Nucleated RBC % 0 Differential Comment SEE COMMENT Diff Path Review Reviewed Platelet Estimate MOD DEC RBC Morphology N CHROM Anisocytosis RARE Sodium 109 L* Potassium 2.1 L* Chloride 64 L* Carbon Dioxide 32.0 Anion Gap 13 BUN 10 Creatinine 0.99 Estim Creat Clear Calc 90.85 Est GFR (MDRD) Af Amer 102 Est GFR (MDRD) Non-Af 84 BUN/Creatinine Ratio 10.1 Glucose 116 H Calcium 9.5 Magnesium Total Bilirubin Direct Bilirubin AST ALT Alkaline Phosphatase Total Protein Albumin Globulin Albumin/Globulin Ratio Ethyl Alcohol 57.0 11/20/20 11/20/20 11/20/20 20:10 20:10 23:35 WBC RBC Hgb Hct MCV MCH MCHC RDW Std Deviation RDW Coeff of Sheryl Plt Count MPV Immature Gran % (Auto) Neut % (Auto) Lymph % (Auto) Mcleod % (Auto) Eos % (Auto) Baso % (Auto) Absolute Neuts (auto) Absolute Lymphs (auto) Nucleated RBC % Differential Comment Diff Path Review Platelet Estimate RBC Morphology Anisocytosis Sodium 118 L* 119 L* Potassium 2.2 L* 2.8 L Chloride 75 L 80 L Carbon Dioxide 34.0 H 33.0 H Anion Gap 9 6 BUN 9 9 Creatinine 0.94 0.82 Estim Creat Clear Calc 95.68 109.68 Est GFR (MDRD) Af Amer 107 127 Est GFR (MDRD) Non-Af 89 105 BUN/Creatinine Ratio 9.6 L 11.0 Glucose 144 H 95 Calcium 8.3 L 8.7 Magnesium 1.6 Total Bilirubin 0.80 Direct Bilirubin 0.35 H AST 221 H ALT 229 H Alkaline Phosphatase 88 Total Protein 7.0 Albumin 3.7 Globulin 3.3 Albumin/Globulin Ratio Ethyl Alcohol 11/21/20 11/21/20 11/21/20 04:25 04:25 13:15 WBC 2.2 L RBC 3.97 L Hgb 12.8 L Hct 35.2 L MCV 88.7 MCH 32.2 H MCHC 36.4 H RDW Std Deviation 34.9 L RDW Coeff of Sheryl 10.8 L Plt Count 74 L MPV 11.2 Immature Gran % (Auto) 0.500 Neut % (Auto) 68.4 Lymph % (Auto) 15.3 L Mcleod % (Auto) 15.3 H Eos % (Auto) 0.5 Baso % (Auto) 0.0 Absolute Neuts (auto) 1.5 L Absolute Lymphs (auto) 0.33 L Nucleated RBC % 0 Differential Comment SCANNED Diff Path Review Reviewed Platelet Estimate MOD DEC RBC Morphology Anisocytosis Sodium 125 L 122 L Potassium 2.5 L* 3.0 L Chloride 81 L 86 L Carbon Dioxide 36.0 H 29.0 Anion Gap 8 7 BUN 9 13 Creatinine 0.76 0.89 Estim Creat Clear Calc 118.34 101.06 Est GFR (MDRD) Af Amer 138 114 Est GFR (MDRD) Non-Af 114 94 BUN/Creatinine Ratio 11.9 14.6 Glucose 97 169 H Calcium 8.8 8.9 Magnesium Total Bilirubin 1.00 Direct Bilirubin AST 198 H ALT 221 H Alkaline Phosphatase 92 Total Protein 7.2 Albumin 3.8 Globulin 3.4 Albumin/Globulin Ratio 1.1 Ethyl Alcohol 11/21/20 19:38 WBC RBC Hgb Hct MCV MCH MCHC RDW Std Deviation RDW Coeff of Sheryl Plt Count MPV Immature Gran % (Auto) Neut % (Auto) Lymph % (Auto) Mcleod % (Auto) Eos % (Auto) Baso % (Auto) Absolute Neuts (auto) Absolute Lymphs (auto) Nucleated RBC % Differential Comment Diff Path Review Platelet Estimate RBC Morphology Anisocytosis Sodium 123 L Potassium 3.3 L Chloride 85 L Carbon Dioxide 34.0 H Anion Gap 4 L BUN 15 Creatinine 1.03 Estim Creat Clear Calc 87.32 Est GFR (MDRD) Af Amer 97 Est GFR (MDRD) Non-Af 80 BUN/Creatinine Ratio 14.6 Glucose 136 H Calcium 8.8 Magnesium Total Bilirubin Direct Bilirubin AST ALT Alkaline Phosphatase Total Protein Albumin Globulin Albumin/Globulin Ratio Ethyl Alcohol Medical Necessity - Tobacco Use Smoking Status: Current every day smoker Tobacco Use: Chew Assessment/Plan All Active Problems (Last Reviewed 11/20/20 @ 09:31 by Liseth Adame) Recurrent syncope (Acute) Seizure (Resolved) Alcohol withdrawal (Resolved) Right inguinal hematoma (Resolved) RECOMMENDATIONS: 1. Obtain chemistries. Aggressive electrolyte repletion 2. Continue telemetry monitoring until electrolyte repleted 3. Alcohol withdrawal protocol 4. Continue NUHA therapy 5. Hemodynamically stable on room air. Will sign off from a critical care perspective 6. Routine follow-up in the office as previously scheduled for NUHA IMPRESSIONS: 1. Recurrent syncope secondary to hypovolemic hyponatremia/hypokalemia Clinical suspicion for electrolyte abnormality secondary to alcohol soni stion. Patient has had multiple repletion's ordered. Significant potassium is still necessary. Patient has responded well to IV fluids for hyponatremia. Will likely ultimately require alcohol cessation to avoid recurrence. Continue with telemetry to monitor for arrhythmia until potassium is improved. Morning labs have been ordered. Will replete as necessary. 2. Alcohol abuse with history of DTs Patient currently on alcohol withdrawal protocol with thiamine, folate and phenobarbital. This appears to be doing well. CIWA protocol with Ativan as needed. 3. Hypertension/hyperlipidemia/NUHA/recent falls Complicates care, management, recovery and prognosis. Patient diagnosed with obstructive sleep apnea as an outpatient and can continue with AutoPap here. Okay to continue with baseline medications from my perspective. Inpatient E&M: 96246 Subs Hosp L2
[2020-11-22] MEDS: amLODIPine 5 MG Tablet PO (09:10)
[2020-11-22] MEDS: FLUoxetine 10 MG Capsule PO (09:10)
[2020-11-22] MEDS: Multivitamins,Ther W-Minerals Tablet 1 TABLET PO (09:10)
[2020-11-22] MEDS: Sodium Bicarbonate 650 MG Tablet 325 MG PO (09:10)
[2020-11-22] MEDS: Thiamine Hydrochloride 100 MG Tablet PO (09:10)
[2020-11-22 09:11] VITALS: BP 127/89; PULSE 65; RESP 18; TEMP 36.2; O2SAT 100
[2020-11-22] MEDS: Potassium Chloride Oral Tablet 20 MEQ PO (09:11)
[2020-11-22] MEDS: Folic Acid 1 MG Tablet PO (09:11)
[2020-11-22 09:21] LABS: Anion Gap 7 (5-15); BUN 10 mg/dL (7-18); BUN/Creat Ratio 12.6 RATIO (10-20); Calcium,Total 9.1 mg/dL (8.5-10.1); Chloride 87 mmol/L (98-107); EST Glomerular Filtration Rate 108 mL/min (>60); Est Glom Filt Rate - Afr Amer 130 mL/min (>60); Estimated Creatinine Clearance 112.43 ml/min; Glucose 103 mg/dL (74-106); Magnesium 1.9 mg/dL (1.6-2.6); Phosphorus 1.4 mg/dL (2.5-4.9); Potassium 3.1 mmol/L (3.5-5.1); Sodium Level 125 mmol/L (136-145)
--- NOTE | 2020-11-22 10:57 | NURSING ---
security called as pt left unit with belongings without signing AMA form and per primary RN still had IV in. No evidence in pt's room of IV having been taken out.
--- NOTE | 2020-11-22 14:31 | DS.PCM_ITS ---
Discharge Date and Diagnosis - Problem List Patient Problems: Active and Suspected Problems (Last Reviewed 11/20/20 @ 09:31 by Liseth Adame) Recurrent syncope (Acute) Date of Admission: 11/20/20 Date of Discharge: 11/22/20 - Primary Discharge Diagnosis Acute Problems: Active Problems (Last Reviewed 11/20/20 @ 09:31 by Liseth Adame) Recurrent syncope (Acute) acute alcohol withdrawal hypokalemia, hyponatremia - Secondary Discharge Diagnosis Chronic Problems: Chronic Problems (Last Reviewed 11/20/20 @ 09:31 by Liseth Adame) Essential (primary) hypertension (Chronic) HLD (hyperlipidemia) (Chronic) Hyponatremia (Chronic) Hypokalemia (Chronic) Tobacco use (Chronic) Elevated LFTs (Chronic) NUHA (obstructive sleep apnea) (Chronic) Chronic alcohol dependence, continuous (Chronic) Hospital Course and Treatment Imaging Results: Diagnostic Data Brain CT 11/20/20 15:04 IMPRESSION: Normal unenhanced CT scan of the brain. Electronically Signed: Dennis Ocampo MD at 16:09 EDT Tel , Service support , Cervical Spine CT 11/20/20 15:04 IMPRESSION: No acute fracture or subluxation. Electronically Signed: Dennis Ocampo MD at 16:17 EDT Tel , Service support , Chest X-Ray 11/20/20 15:04 IMPRESSION: Normal x-ray examination of the chest. Electronically Signed: Dennis Ocampo MD at 16:07 EDT Tel , Service support , Facial/Sinus 11/20/20 15:10 IMPRESSION: Normal unenhanced CT of the facial bones. Electronically Signed: Dennis Ocampo MD at 16:15 EDT Tel , Service support , critical care, nephrology Operations: None, - Procedures: None Summary of Care Provided: The patient is a 55 year old M with a past medical history as outlined which includes chronic alcohol abuse, history of electrolyte abnormalities namely hyponatremia, hypertension and sleep apnea who was admitted through the ED on 11/20/2020. He was admitted from his neurologist office where he had come for follow-up of recurrent syncope. He had fallen 4 days prior to admission and struck his face and also fell 3 days prior to admission. He had associated nausea and vomiting as well as diarrhea and had been drinking about 6-12 beers daily. On admission, sodium was 109 and potassium was 2.1. Creatinine was 0.99 and calcium was 9.5 with serum alcohol level of 57. CT of the brain showed no acute intracranial pathology and CT of the spine showed no acute fracture or subluxation. He was admitted and managed for acute on chronic hyponatremia as well as acute alcohol withdrawal as well as acute hypokalemia. She was started on normal saline to replace sodium and was also started on potassium replacement. Nephrology and critical care were consulted. Recently admitted to the ICU but subsequently transferred out once his potassium levels improved. He was also put on supplemental thiamine, folic acid and Multivite as well as phenobarbital protocol for alcohol withdrawal. He was also put on CIWA protocol with Ativan. Patient remained stable. Sodium gradually came up to 125 though he still remained hypokalemic. On 11/22/2020, patient insisted on being discharged from the hospital because it was his 's birthday the next day. I counseled patient that he still had hyponatremia and hypokalemia and he was still on the phenobarbital withdrawal protocol for acute alcohol withdrawal. I informed patient that I was not comfortable discharging him as I did not think he was medically stable. Patient however insisted on leaving and signed out AGAINST MEDICAL ADVICE on 11/22/2020. Patient was seen and examined prior to him signing out AGAINST MEDICAL ADVICE. He had no complaints. Review of symptoms otherwise negative. Labs and vitals reviewed. O/E:[] Vital Signs Temp Pulse Resp BP Pulse Ox 97.2 F L 65 18 127/89 H 100 11/22/20 09:11 11/22/20 09:11 11/22/20 09:11 11/22/20 09:11 11/22/20 09:11 General: Alert, Oriented x3, Cooperative, No apparent distress HEENT: PERRLA, EOMI, Normocephalic, - - Bilateral periorbital ecchymosis, resolving Oral: Moist Mucosa Neck: Supple, No JVD Lungs: Clear to auscultation, Normal air movement, No rhonchi, No wheeze, No rales Cardiovascular: Regular rate, Regular Rhythm, Normal S1, Normal S2, No murmurs Abdomen: Soft, Non Tender, Non-Distended, No Hepato-splenomegaly Extremities: No edema, Capillary Refill Less than 3 Seconds Skin: No rashes, No breakdown Neurological: Neuro grossly intact, Sensory exam intact to light touch and pain Psych/Mental Status: Normal Affect, Appropriate Patient signed out AGAINST MEDICAL ADVICE. Patient Problems: Active and Suspected Problems (Last Reviewed 11/20/20 @ 09:31 by Liseth Adame) Recurrent syncope (Acute) - Physical Exam Vitals/I&O's: Vital Signs Temp Pulse Resp BP Pulse Ox 97.2 F L 65 18 127/89 H 100 11/22/20 09:11 11/22/20 09:11 11/22/20 09:11 11/22/20 09:11 11/22/20 09:11 Oxygen Delivery Method Room Air Weight: 169 lb 1.513 oz Body Mass Index (BMI) 24.6 Intake and Output for Last 24 Hours 11/20/20 11/21/20 11/22/20 23:59 23:59 23:59 Intake Total 1453.80 / 1453.80 2661.67 / 2661.67 1525 / 1525 Output Total 375 / 375 1575 / 1575 Balance 1078.80 / 1078.80 1086.67 / 1086.67 1525 / 1525 Laboratory Results 11/21/20 19:38: Sodium 123 L, Potassium 3.3 L, Chloride 85 L, Carbon Dioxide 34.0 H, Anion Gap 4 L, BUN 15, Creatinine 1.03, Estim Creat Clear Calc 87.32, Est GFR (MDRD) Af Amer 97, Est GFR (MDRD) Non-Af 80, BUN/Creatinine Ratio 14.6, Glucose 136 H, Calcium 8.8 11/22/20 08:22: Sodium 125 L, Potassium 3.1 L, Chloride 87 L, Carbon Dioxide 31.0, Anion Gap 7, BUN 10, Creatinine 0.80, Estim Creat Clear Calc 112.43, Est GFR (MDRD) Af Amer 130, Est GFR (MDRD) Non-Af 108, BUN/Creatinine Ratio 12.6, Glucose 103, Calcium 9.1, Phosphorus 1.4 L, Magnesium 1.9 Discharge Diet: No Restrictions Home Medications: Medications to take at Discharge Amlodipine Besylate [Norvasc] 5 mg PO DAILY 03/11/19 Naltrexone HCl 50 mg PO DAILY 03/11/19 Potassium Gluconate 99 meq PO DAILY 03/11/19 Rosuvastatin Calcium 40 mg PO QHS 03/11/19 Cetirizine HCl 10 mg PO DAILY 07/09/20 Thiamine Mononitrate (Vit B1) [Vitamin B-1] 100 mg PO DAILY 07/09/20 cholecalciferol (vitamin D3) 25 mcg (1,000 unit) capsule 25 mcg PO DAILY 11/05/20 fluoxetine 10 mg tablet 10 mg PO BID tab 11/05/20 lisinopril 40 mg tablet 40 mg PO DAILY tab 11/05/20 potassium chloride 20 mEq oral packet 20 meq PO DAILY ea 11/05/20 sodium bicarbonate 325 mg tablet 325 mg PO BID tab 11/05/20 Cyanocobalamin (Vitamin B-12) [B-12] 1,000 mcg PO DAILY 11/20/20 [place]-3 Fatty Acids [[place]-3] 1,000 mg PO DAILY 11/20/20 Valacyclovir HCl [Valacyclovir] 1,000 mg PO DAILY PRN PRN 11/20/20 Zinc 50 mg PO DAILY 11/20/20 ascorbic acid (vitamin C) 1,000 mg tablet 1 g PO DAILY tab 11/20/20 multivit,Ca,min-iron 8 mg-folic acid 200 mcg-lycopene 600 mcg tablet 1 tab PO DAILY tab 11/20/20 Primary Care Physician: Rupert Coker MD [Primary Care Provider] - Disposition: Against Medical Advice Minutes spent on discharge:: 40 Patient Condition:: Fair Medical Necessity - Tobacco Use Smoking Status: Current every day smoker Tobacco Use: Chew Meaningful Use Info Meaningful Use Diagnoses (Choose all that apply): None applicable Inpatient E&M: 08130 Disch Hosp
== END 2020-11-22 11:08 | disposition left against medical advice (07) | DRG 641 ==
LOC: ED 15:32 → ICU 17:34 → MS3 11-21 18:52
PROVIDERS: Internal Medicine Critical Care Medicine; Pediatrics Pediatric Nephrology; Admitting Provider Internal Medicine; Emergency Provider Emergency Medicine; PCP Family Medicine; Visit Provider Student in an Organized Health Care Education/Training Program
DX: E87.1 Hypo-osmolality and hyponatremia (principal); F10.239 Alcohol dependence with withdrawal, unspecified; E87.6 Hypokalemia; I10 Essential (primary) hypertension; E78.5 Hyperlipidemia, unspecified; G47.33 Obstructive sleep apnea (adult) (pediatric); R29.6 Repeated falls; S00.11XA Contusion of right eyelid and periocular area, initial encounter; S00.12XA Contusion of left eyelid and periocular area, initial encounter; W19.XXXA Unspecified fall, initial encounter; G40.909 Epilepsy, unspecified, not intractable, without status epilepticus; F17.220 Nicotine dependence, chewing tobacco, uncomplicated; Z86.16 Personal history of COVID-19; Y90.2 Blood alcohol level of 40-59 mg/100 ml
CPT/HCPCS: 70450; 70486; 71045; 72125; 80048; 80053; 80076; 82077; 83735; 84100; 85025; 93005; 94660; 97161; 97802; 99251; 99283; J7030; A4216; G0463

== ENCOUNTER → 2020-11-24 10:43 | Outpatient (CLI) | payer MEDICAID, SELFPAY ==
[2020-11-20 18:51] VITALS: BMI 24.6
[2020-11-24 12:04] LABS: Absolute Lymphocyte Count 0.59 X10^3/uL (0.83-4.51); Absolute Neutrophil Count 3.7 X10^3/uL (2.0-7.7); Basophil# 0.03 X10^3/uL; Basophil% 0.6 % (0-1); Eosinophil# 0.09 X10^3/uL; Eosinophils% 1.8 % (0-5); Hematocrit 35.8 % (40-54); Hemoglobin 12.3 g/dL (13.0-16.5); Lymphocyte # 0.59 X10^3/ul (4.0); Lymphocyte % 11.7 % (19-41); Mean Corp Hgb Conc 34.4 g/dL (32-36); Mean Corpuscular Hgb 31.9 pg (27.0-32.0); Mean Platelet Vol. 10.5 fl (6.2-12.0); Monocyte# 0.59 X10^3/uL; Monocyte% 11.7 % (0-10); NRBC Flagged by Analyzer 0 % (0-5); Neutrophil # 3.72 X10^3/uL (2.7-7.7); POSITIVE DIFFERENTIAL YES; Platelet Count 147 K/mm3 (150-450); RBC Distribution Width CV 11.1 % (11.6-14.6); RBC Distribution Width SD 37.4 fl (35.1-43.9); Red Blood Count 3.85 M/mm3 (4.6-6.2)
[2020-11-24 12:05] LABS: Differential Indicated SCAN CRITERIA MET
[2020-11-24 12:22] LABS: ALB/GLOB Ratio 1.2 RATIO (0.9-2.4); AST(SGOT) 69 U/L (15-37); Alanine Aminotransfer ALT/SGPT 125 U/L (16-61); Alkaline Phosphatase 109 U/L (45-117); Anion Gap 9 (5-15); BUN 12 mg/dL (7-18); BUN/Creat Ratio 11.3 RATIO (10-20); Calcium,Total 9.2 mg/dL (8.5-10.1); Chloride 90 mmol/L (98-107); Creatinine, Serum 1.06 mg/dL (0.70-1.30); EST Glomerular Filtration Rate 77 mL/min (>60); Est Glom Filt Rate - Afr Amer 94 mL/min (>60); Globulin 3.4 g/dL (2.2-4.2); Glucose 114 mg/dL (74-106); Potassium 2.9 mmol/L (3.5-5.1); Protein, Total 7.4 g/dL (6.4-8.2); Sodium Level 130 mmol/L (136-145)
== END ==
PROVIDERS: PCP Family Medicine; Visit Provider Family Medicine
DX: I10 Essential (primary) hypertension (principal)
CPT/HCPCS: 36415; 80053; 85025

== ENCOUNTER → 2020-12-08 07:24 | Outpatient (CLI) | payer MEDICAID, SELFPAY ==
[2020-11-20 18:51] VITALS: BMI 24.6
--- NOTE | 2020-12-08 07:25 | MRI_ITS ---
STUDY: MRI BRAIN WITH AND WITHOUT CONTRAST REASON FOR EXAM: Male, 55 years old. MCI, Syncope: Collapsed, Alcohol withdrawal seizure. TECHNIQUE: Standardized multiplanar fat and water weighted pulse sequences were obtained. IV DOTAREM 17 CC was administered for the contrast portion of the examination. COMPARISON: CT head without contrast 11/20/2020. FINDINGS: No diffusion restriction throughout the brain parenchyma. No focal signal abnormalities throughout the brain parenchyma in all of the pulse sequences. Normal size of the ventricles and extra-axial spaces for the patient''s age. Normal white matter tracts of the supratentorial brain. Normal bilateral basal ganglia. Normal thalami. There is no extra-axial fluid accumulation. Normal flow voids within the major intracranial circulation suggesting patency by spin echo criteria. Normal venous enhancement. There is no enhancing intra-axial or extra-axial abnormality. Normal sella turcica, pituitary gland, infundibular stalk, optic chiasm and hypothalamus. Normal tectal plate and pineal gland. Normal midbrain, carlyle and medulla. Normal cerebellum. Normal basal cisterns. Normal bilateral temporal bones. Normal bilateral internal auditory canals. No demonstrated orbital abnormality, within the constraints of a routine brain study. Normal visualized paranasal sinuses. Normal calvarium and skull base. Normal visualized soft tissue structures. Normal visualized upper cervical spine. MRI/Brain W/WO Contrast IMPRESSION: Normal unenhanced and enhanced MRI of the brain. Electronically Signed: Parth Magana MD at 15:29 EDT , Service support ,
== END ==
PROVIDERS: PCP Family Medicine; Referring Provider Psychiatry & Neurology Neurology; Visit Provider Psychiatry & Neurology Neurology
DX: R55 Syncope and collapse (principal); G31.84 Mild cognitive impairment of uncertain or unknown etiology; F10.239 Alcohol dependence with withdrawal, unspecified; R56.9 Unspecified convulsions
CPT/HCPCS: 70553; A9575

== ENCOUNTER → 2020-12-15 09:33 | Outpatient (CLI) | payer MEDICAID, SELFPAY ==
[2020-11-20 18:51] VITALS: BMI 24.6
[2020-12-15 10:46] LABS: Anion Gap 5 (5-15); BUN 11 mg/dL (7-18); BUN/Creat Ratio 10.8 RATIO (10-20); Calcium,Total 9.6 mg/dL (8.5-10.1); Chloride 101 mmol/L (98-107); Creatinine, Serum 1.02 mg/dL (0.70-1.30); EST Glomerular Filtration Rate 81 mL/min (>60); Est Glom Filt Rate - Afr Amer 98 mL/min (>60); Glucose 107 mg/dL (74-106); Magnesium 1.6 mg/dL (1.6-2.6); Potassium 3.9 mmol/L (3.5-5.1); Sodium Level 137 mmol/L (136-145)
== END ==
PROVIDERS: PCP Family Medicine; Visit Provider Family Medicine
DX: E87.6 Hypokalemia (principal)
CPT/HCPCS: 36415; 80048; 83735

== ENCOUNTER 2021-01-07 06:53 | Day surgery (SDC) | payer MEDICAID, SELFPAY ==
[2020-12-17 08:59] VITALS: BMI 25.4
[2021-01-06 15:02] VITALS: BMI 24.5
--- NOTE | 2021-01-07 07:00 | HP_ITS ---
HPI HPI History of Present Illness Details: This is a 55-year-old gentleman that presents to the office for a cardiovascular follow-up. He was referred to us for syncope. He has a history of hypertension as well as alcohol use. He has had an episode in July 2020 where he was found on the current floor at the time his sodium was noted to be 112 with an elevated alcohol level and low potassium level. There are other times that this has also happened without any significant electrolyte abnormalities. His electrocardiogram at that time demonstrated normal sinus rhythm with a rate of 80 bpm. His electrolyte panel has apparently improved his had no chest pain prior to the above. During this July episode he had been drinking 8-24 beers daily he was brought to the emergency room and he requested to leave the emergency room AGAINST MEDICAL ADVICE. While waiting for his to pick him up he had a seizure episode. He was subsequently treated and discharged. He had a Holter monitor placed which demonstrated an average heart rate of 75 bpm. He did have occasional supraventricular ectopic beats noted. There was at least one strip where a pause of more than 3 seconds is noted but it is not very clear from the lead placement. We repeated his Holter monitor. No significant arrhythmias were noted. Echocardiogram was normal. He has had a few episodes of lightheadedness but no syncope. Intake Vital Signs 12/17/20 Weight: 178 lb 12/17/20 BP 120/80 12/17/20 Pulse 88 Intake Visit Reasons: 6 wk f/up Allergies No Known Allergies Allergy (Verified 11/20/20 13:53) Medications Amlodipine Besylate [Norvasc] 5 mg PO DAILY 03/11/19 [History Confirmed 12/17/20] Naltrexone HCl 50 mg PO DAILY 03/11/19 [History Confirmed 12/17/20] Potassium Gluconate 99 meq PO DAILY 03/11/19 [History Confirmed 12/17/20] Rosuvastatin Calcium 40 mg PO QHS 03/11/19 [History Confirmed 12/17/20] Cetirizine HCl 10 mg PO DAILY 07/09/20 [History Confirmed 12/17/20] Thiamine Mononitrate (Vit B1) [Vitamin B-1] 100 mg PO DAILY 07/09/20 [History Confirmed 12/17/20] cholecalciferol (vitamin D3) 25 mcg (1,000 unit) capsule 25 mcg PO DAILY 11/05/20 [History Confirmed 12/17/20] fluoxetine 10 mg tablet 10 mg PO BID tab 11/05/20 [History Confirmed 12/17/20] lisinopril 40 mg tablet 40 mg PO DAILY tab 11/05/20 [History Confirmed 12/17/20] potassium chloride 20 mEq oral packet 20 meq PO DAILY each 11/05/20 [History Confirmed 12/17/20] sodium bicarbonate 325 mg tablet 325 mg PO BID tab 11/05/20 [History Confirmed 12/17/20] Cyanocobalamin (Vitamin B-12) [B-12] 1,000 mcg PO DAILY 11/20/20 [History Confirmed 12/17/20] [place]-3 Fatty Acids [[place]-3] 1,000 mg PO DAILY 11/20/20 [History Confirmed 12/17/20] Valacyclovir HCl [Valacyclovir] 1,000 mg PO DAILY PRN PRN 11/20/20 [History Confirmed 12/17/20] Zinc 50 mg PO DAILY 11/20/20 [History Confirmed 12/17/20] ascorbic acid (vitamin C) 1,000 mg tablet 1 g PO DAILY tab 11/20/20 [History Confirmed 12/17/20] multivit,Ca,min-iron 8 mg-folic acid 200 mcg-lycopene 600 mcg tablet 1 tab PO DAILY tab 11/20/20 [History Confirmed 12/17/20] [facility] Medical History Essential (primary) hypertension (Chronic) HLD (hyperlipidemia) (Chronic) Seizure (Resolved) Hyponatremia (Chronic) Hypokalemia (Chronic) Tobacco use (Chronic) Elevated LFTs (Chronic) NUHA (obstructive sleep apnea) (Chronic) Chronic alcohol dependence, continuous (Chronic) BMI 27.0-27.9,adult (Chronic) Electrolyte abnormality (Chronic) Thrombocytopenia (Chronic) Alcohol withdrawal (Resolved) Right inguinal hematoma (Resolved) Scalp laceration (Resolved) Surgical History History of hernia repair (Resolved) Family History Mother Asthma Social History (Updated 12/17/20 @ 09:33 by Kellie MCKAY, PA) Smoking Status: Current every day smoker Smokeless tobacco user: chewing tobacco, snuff alcohol intake: current alcohol intake frequency: 3 or more drinks per day Alcohol type: beer, wine ROS Const Const: Negative for fatigue, weakness, headache(s), frequent falls, difficulty sleeping or excessive sweating Eyes Eyes: Negative for loss of peripheral vision, transient loss of vision, blurry vision, double vision or tunnel vision ENT ENT: Negative for headache(s), dizziness, Nosebleed/epistaxis or balance problems Cardio Chest Pain: No Palpitations: No Edema: None Muscle aches with walking: None Resp Respiratory: Negative for SOB with activity, SOB at rest, SOB orthopnea\SOB lying down, Cough or paroxysmal nocturnal dyspnea GI GI: Negative nausea, vomiting, heartburn or black,tarry stools : Negative for hematuria Musc Musc: Negative for muscle aches/ myalgia, muscle weakness, joint pain or balance problems Skin Skin: Negative non-healing lesions, rash or unusual bruising Neuro Neuro: Positive for syncope (3-4 episodes a week, starts to feel off and knows to sit down); negative for dizziness, lightheadedness, near syncope, orthostatic symptoms, frequent falls, headache(s), weakness, blurry vision, double vision or lack of coordination Ahmet Hematologic/Lymphatic: Negative for easy bleeding or easy bruising Endo Endo: Negative for fatigue, excessive sweating or increased thirst/drinking Psych Psych: Negative for anxiety or depression Allergy Allergy/Immunology: Negative for hives, Negative for rash Cardiology Exam Const Appearance: cooperative, no acute distress and well developed Orientation: alert, awake and oriented x3 Head Head: normocephalic and atraumatic Mouth: moist mucous membranes Eyes General: appearance normal, both eyes and all related structures Conjunctivae: conjunctivae normal Pupils: PERRL EOM: EOM intact bilaterally Neck Neck: normal visual inspection, no lymphadenopathy and no JVD Carotids: Negative bruit Neck Mass: Negative Neck mass Chest Chest inspection: normal inspection of the chest and symmetric chest movement Auscultation: Bilateral: Clear to Auscultation Cardio Palpation: normal PMI Rate: regular rate Rhythm: regular rhythm Heart sounds: S1 normal and S2 normal; negative rub, gallop or murmur GI GI: normal to inspection, soft, no hepatosplenomegaly and bowel sounds present; negative tender Neuro General: alert, awake, oriented x3, CN's II-XI intact bilaterally and moves all extremities Extremities Pulses: Normal: Right Posterior Tibial Pulse, Left Posterior Tibial Pulse, Right Radial Pulse, Left Radial Pulse Lower Extremity Edema: None: Bilateral Psych Psychological: normal affect Assessment & Plan 1. Recurrent syncope R55 Plan With his recurrent syncope and negative echocardiogram and a Holter monitor would like to pursue a loop recorder. Patient is agreeable with this. This will be scheduled for the near future. 2. Essential hypertension I10 Plan This is managed by his primary care doctor. Blood pressure is adequately controlled. 3. Hyperlipidemia, unspecified hyperlipidemia type E78.5 Plan Patient is on moderate intensity statin. This is managed by his primary care doctor. Plan Detail Follow Up 6 Months ([facility]) 12/17/20 (setting up loop recorder implant for 01/07) Coding Level of Care Code Off vis,est,level 3 Diagnoses Recurrent syncope R55 Essential hypertension I10 Hyperlipidemia, unspecified hyperlipidemia type E78.5 ??Hyperlipidemia type: unspecified Coding Level of Care Code Off vis,est,level 3 Diagnoses Recurrent syncope R55 Essential hypertension I10 Hyperlipidemia, unspecified hyperlipidemia type E78.5 ??Hyperlipidemia type: unspecified Supplemental Info Supplemental Information Echocardiogram 11/2020: Normal LV size. Left ventricular systolic function is normal. The estimated ejection fraction is 60 %. Normal diastology for age. Structurally normal valves. Diagnostics Electrocardiogram 11/20/20 Echocardiogram 11/12/20 Chest X-Ray 11/20/20 COVID (Procedure Consent) Procedure Criteria Procedure Criteria: Yes Elective The surgeon/proceduralist and patient have discussed in detail the risk of exposure to and/or potential harm posed by the COVID-19 virus with having a surgery/procedure at this time versus the risk of? delaying the surgery/procedure. It is not possible to know either the risk of delaying the surgery or procedure or chance of getting an infection with perfect accuracy, but a joint decision was made between the patient and the surgeon/proceduralist ?to proceed at this time with the scheduled surgery/procedure as indicated on the consent form.
--- NOTE | 2021-01-07 07:39 | CL.IE_ITS ---
Patient: JAVIER STRICKLAND Study Date: 01/07/2021 Performing: Macario Mendoza MD : 1965 Age: 55 Gender: male PROCEDURES PERFORMED LD79-RMBNWIAAS OF LOOP RECORDER INDICATIONS Syncope PROCEDURE DETAILS The patient was brought to the Catheterization Lab in the postabsorptive nonsedated state. Infor med consent was obtained prior to the procedure. Local anesthetic was given subcutaneously to the le ft subclavian region with Lidocaine 2%. Incision was made to the left subclavicular area. ICM Loop Re tess was inserted. The patient tolerated the procedure well. Estimated Blood Loss: 2 ml's IMPLANTED / EX-PLANTED DEVICES IMPLANTED DEVICE(S): ICM Loop Recorder - Bracelet Form Coverer: [employer], Model # [id number] , Serial # [id number] DEVICE PARAMETERS CONCLUSIONS / RECOMMENDATIONS Device Conclusions: Successful implantation of a patient activated loop recorder. Device Recommendations: Follow up with Primary Care Physician PROCEDURE MEDICATIONS Versed 1 mg IV Oxygen: 2 L/min via nasal cannula Antibiotic given in appropriate timeframe. Ancef 2 Gm IV @ 01/07/2021 07:17:58 Signed By Macario Mendoza MD On 01/07/2021 07:39:17 Macario Mendoza MD
== END 2021-01-07 08:50 | disposition home or self-care (01) ==
PROVIDERS: PCP Family Medicine; Referring Provider Internal Medicine Cardiovascular Disease; Visit Provider Internal Medicine Cardiovascular Disease
DX: R55 Syncope and collapse (principal); I10 Essential (primary) hypertension; E78.5 Hyperlipidemia, unspecified; F17.200 Nicotine dependence, unspecified, uncomplicated; Z79.899 Other long term (current) drug therapy
CPT/HCPCS: 33285; 99152; J7040

== ENCOUNTER → 2021-01-26 06:42 | Outpatient (CLI) | payer MEDICAID, SELFPAY ==
[2020-11-20 09:36] VITALS: BMI 25.9
[2021-01-06 15:02] VITALS: BMI 24.5
--- NOTE | 2021-01-26 08:16 | TELEMED_ITS ---
[facility] Telemed has confirmed receipt of a request for visit. This document confirms receipt of the order initiating the consult. To find the results of the consultation, please view the patient's reports for the scanned Telemed Consult.
== END ==
PROVIDERS: PCP Family Medicine; Referring Provider Psychiatry & Neurology Neurology; Visit Provider Psychiatry & Neurology Neurology
DX: R55 Syncope and collapse (principal); F10.239 Alcohol dependence with withdrawal, unspecified; R56.9 Unspecified convulsions; G31.84 Mild cognitive impairment of uncertain or unknown etiology
CPT/HCPCS: 95819

== ENCOUNTER → 2021-02-13 16:13 | Outpatient (CLI) | payer MEDICAID, SELFPAY ==
[2021-02-09 10:52] VITALS: BMI 24.5
[2021-02-13 17:36] LABS: Absolute Lymphocyte Count 0.92 X10^3/uL (0.83-4.51); Absolute Neutrophil Count 5.3 X10^3/uL (2.0-7.7); Basophil# 0.04 X10^3/uL; Basophil% 0.6 % (0-1); Eosinophil# 0.03 X10^3/uL; Eosinophils% 0.4 % (0-5); Hematocrit 40.5 % (40-54); Hemoglobin 13.6 g/dL (13.0-16.5); Lymphocyte # 0.92 X10^3/ul (0.83-4.51); Lymphocyte % 13.5 % (19-41); Mean Corp Hgb Conc 33.6 g/dL (32-36); Mean Corpuscular Hgb 31.3 pg (27.0-32.0); Mean Corpuscular Volume 93.3 fL (80-94); Mean Platelet Vol. 10.5 fl (6.2-12.0); Monocyte# 0.53 X10^3/uL; Monocyte% 7.8 % (0-10); NRBC Flagged by Analyzer 0 % (0-5); Neutrophil # 5.27 X10^3/uL (2.7-7.7); Neutrophil % 77.4 % (47-70); Platelet Count 221 K/mm3 (150-450); RBC Distribution Width CV 12.2 % (11.6-14.6); RBC Distribution Width SD 42.3 fl (35.1-43.9); Red Blood Count 4.34 M/mm3 (4.6-6.2); White Blood Count 6.8 K/mm3 (4.4-11.0)
[2021-02-13 17:47] LABS: AST(SGOT) 23 U/L (15-37); Alanine Aminotransfer ALT/SGPT 22 U/L (16-61); Albumin, Serum 4.1 g/dL (3.2-5.0); Alkaline Phosphatase 98 U/L (45-117); Bilirubin, Direct 0.26 mg/dL (0.00-0.30); Globulin 3.8 g/dL (2.2-4.2); Lipase 70 U/L (73-393); Protein, Total 7.9 g/dL (6.4-8.2)
== END ==
PROVIDERS: PCP Family Medicine; Referring Provider Family Medicine; Visit Provider Family Medicine
DX: R10.11 Right upper quadrant pain (principal)
CPT/HCPCS: 36415; 80076; 83690; 85025

== ENCOUNTER → 2021-02-19 09:46 | Outpatient (CLI) | payer MEDICAID, SELFPAY ==
[2021-02-09 10:52] VITALS: BMI 24.5
--- NOTE | 2021-02-19 10:59 | US_ITS ---
STUDY: ABDOMINAL ULTRASOUND - RIGHT UPPER QUADRANT REASON FOR VISIT: Male, 55 years old RUQ PAIN TECHNIQUE: Ultrasound evaluation of the right upper quadrant was performed with real-time and static collins-scale imaging. TECHNICAL QUALITY: Limited. Examination limited by bowel gas. COMPARISON: None. FINDINGS: Liver: The liver measures 14.3 cm. There is increased echogenicity consistent with fatty infiltration. The bile ducts are within normal limits. There is hepatic color flow. The direction of portal flow is hepatopetal. There is no demonstrated mass lesion. Gallbladder: Normal distended gallbladder. The gallbladder wall measures 2.1 mm. There is a negative sonographic Benavides''s sign. There is no pericholecystic fluid. There are no gallstones. Common Bile Duct (C.B.D.): The common bile duct measures 2.9 mm. Pancreas: Normal size of the head, body and tail of the pancreas. There is normal echogenicity of the pancreas. There is no demonstrated pancreatic mass or cyst. Right Kidney: Normal size of the right kidney. The right kidney measures 10.3 cm x 5.2 cm x 5.1 cm. Normal renal cortex. The right cortex measures 1.4 cm. There is no demonstrated renal mass or cyst. There is no right hydronephrosis. US/Abdomen Limited IMPRESSION: Fatty infiltration of the liver. Electronically Signed: Alessio Wayne MD at 12:57 EDT , Service support ,
--- NOTE | 2021-02-20 08:08 | PFT ---
INTRODUCTION: The patient is a 55-year-old male that presents for pulmonary function studies secondary to a diagnosis of tobacco dependency. Respiratory therapy reports good patient effort. Bronchodilators were used during testing. INTERPRETATION: Forced expiration spirometry demonstrates the presence of a moderately severe large airways obstructive ventilatory defect. There was a significant response to aerosolized bronchodilators noted. Spirograms are of good quality and plateau gradually indicating slow emptying of the lungs. Body plethysmography was performed and revealed an elevated RV to 144% of predicted, indicative of underlying air trapping. Diffusing capacity by single breath CO was preserved. IMPRESSION: Partially reversible moderately severe large airways obstructive ventilatory defect with associated air trapping. Diffusing capacity is preserved.
== END ==
PROVIDERS: PCP Family Medicine; Referring Provider Family Medicine; Visit Provider Family Medicine
DX: R10.11 Right upper quadrant pain (principal); R14.0 Abdominal distension (gaseous); Z72.0 Tobacco use
CPT/HCPCS: 76705; 94060; 94726; 94729

== ENCOUNTER → 2021-02-20 20:00 | Outpatient (CLI) | payer MEDICAID, SELFPAY ==
[2021-02-09 10:52] VITALS: BMI 24.5
== END ==
PROVIDERS: PCP Family Medicine; Visit Provider Internal Medicine Critical Care Medicine
DX: G47.33 Obstructive sleep apnea (adult) (pediatric) (principal)
CPT/HCPCS: 95811

== ENCOUNTER → 2021-02-26 09:31 | Outpatient (CLI) | payer MEDICAID, SELFPAY ==
[2021-02-09 10:52] VITALS: BMI 24.5
== END ==
PROVIDERS: PCP Family Medicine; Referring Provider Nurse Practitioner Acute Care; Visit Provider Nurse Practitioner Acute Care
DX: G47.33 Obstructive sleep apnea (adult) (pediatric) (principal)

== ENCOUNTER → 2021-04-22 11:22 | Outpatient (CLI) | payer MEDICAID, SELFPAY ==
[2021-04-22 15:39] LABS: Phosphorus 3.4 mg/dL (2.5-4.9)
[2021-04-22 15:44] LABS: AST(SGOT) 26 U/L (15-37); Alanine Aminotransfer ALT/SGPT 28 U/L (16-61); Alkaline Phosphatase 100 U/L (45-117); Anion Gap 10 (5-15); BUN 11 mg/dL (7-18); BUN/Creat Ratio 13.8 RATIO (10-20); Calcium,Total 9.3 mg/dL (8.5-10.1); Chloride 98 mmol/L (98-107); Cholesterol 161 mg/dL (200); EST Glomerular Filtration Rate 107 mL/min (>60); Est Glom Filt Rate - Afr Amer 130 mL/min (>60); Globulin 3.9 g/dL (2.2-4.2); Glucose 99 mg/dL (74-106); High Density Lipoprotein 68 mg/dL; Potassium 3.9 mmol/L (3.5-5.1); Protein, Total 7.9 g/dL (6.4-8.2); Sodium Level 135 mmol/L (136-145); Triglycerides 180 mg/dL; Very Low Density Lipoprotein 36 mg/dL (5-40)
[2021-04-24 16:08] LABS: Alpha-1-Globulins 0.2 g/dL (0.0-0.4); Alpha-2-Globulins 0.9 g/dL (0.4-1.0); Gamma Globulin 0.9 g/dL (0.4-1.8); Immunoglobulin A 178 mg/dL (90-386); Immunoglobulin G 858 mg/dL (603-1613); Immunoglobulin M 59 mg/dL (20-172)
== END ==
PROVIDERS: Psychiatry & Neurology Neurology; PCP Family Medicine; Referring Provider Family Medicine; Visit Provider Family Medicine
DX: E87.6 Hypokalemia (principal); E83.39 Other disorders of phosphorus metabolism; E78.00 Pure hypercholesterolemia, unspecified
CPT/HCPCS: 36415; 80053; 80061; 82784; 83735; 84100; 84165; 84443; 86334

== ENCOUNTER → 2021-05-06 11:58 | Outpatient (CLI) | payer MEDICAID, SELFPAY ==
[2021-05-12 23:46] LABS: Immunofixation Urine Comment: (.)
== END ==
PROVIDERS: Psychiatry & Neurology Neurology; PCP Family Medicine; Referring Provider Family Medicine; Visit Provider Family Medicine
DX: G62.9 Polyneuropathy, unspecified (principal)
CPT/HCPCS: 36415; 86335

== ENCOUNTER → 2021-05-19 13:30 | Outpatient (CLI) | payer MEDICAID, SELFPAY | PROVIDERS: PCP Family Medicine; Referring Provider Nurse Practitioner Acute Care; Visit Provider Nurse Practitioner Acute Care | DX: G47.33 Obstructive sleep apnea (adult) (pediatric) (principal) | CPT/HCPCS: 98960; G0463 ==

== ENCOUNTER 2021-06-23 07:05 | Day surgery (SDC) | payer MEDICAID, SELFPAY ==
[2021-06-23] VITALS (7 sets, daily range): BP systolic 108–121; BP diastolic 74–94; PULSE 54–65; RESP 16–18; TEMP 36.4–36.7; O2SAT 97–100; BMI 23.7
[2021-06-23] MEDS: Lactated Ringers 1,000 ML 100 ML IV (07:58)
--- NOTE | 2021-06-23 08:00 | COLBX_PTH ---
PATIENT: JAVIER STRICKLAND LOC: EN U#:[id number] AGE/SX: 55/M ROOM: RE06/23/[address]: Dr. Micheal Mercado MD : 1965 BED: DIS: 06/23/2021 SPEC #: [id number] RECD: 06/23/21 11:40 STATUS: ELIEL REJose #: [id number] DOROTHY: 06/23/21 08:[address]: Micheal Mercado DEPT: SURGICAL PATHOLOGY RECD BY: Radha Almeida ENTERED: 06/23/21 12:55 SP TYPE: COLON BX OTHR DR: Dr. Geeta Chavez MD Tissues: COLON BIOPSY Procedures: Surgery Specimen Level IV HEADER OPERATION: Colonoscopy (MAC) PRE-OP DIAGNOSIS: Diarrhea TISSUE SUBMITTED: Random colon biopsies MICROSCOPIC DIAGNOSIS Colon, random biopsy: No pathologic change. No evidence of colitis. AM:socorro 06/24/2021 MICROSCOPIC DESCRIPTION Slides are reviewed. GROSS DESCRIPTION Received in fixative is one container labeled with the patient's name and designated random colon biopsy. The specimen consists of multiple irregular fragments of light vences soft tissue that in aggregate measure 2.5 x 0.5 x 0.1 cm. The specimen is totally submitted in one cassette. / AM:socorro 06/23/21 TC:5 CPT: 75316
--- NOTE | 2021-06-23 08:01 | HP.PCM_ITS ---
History and Physical Date of Admission: 06/23/21 Intake Vital Signs 06/15/21 13:23 Height 5 ft 11 in Weight: 173 lb BMI 24.1 BP 107/69 Blood Pressure Location Rt brachial Position Sitting Respiration 16 Intake Visit Reasons: C-Scope Chief Complaint: c-scope Nutrition Associate Required: No Is patient in pain?: No Allergies No Known Allergies Allergy (Verified 06/15/21 13:23) Medications amlodipine 5 mg PO DAILY 03/11/19 [History Confirmed 06/15/21] naltrexone 50 mg PO DAILY 03/11/19 [History Confirmed 06/15/21] potassium gluconate 99 meq PO DAILY 03/11/19 [History Confirmed 06/15/21] rosuvastatin 40 mg PO QHS 03/11/19 [History Confirmed 06/15/21] cetirizine 10 mg PO DAILY 07/09/20 [History Confirmed 06/15/21] thiamine mononitrate (vit B1) 100 mg PO DAILY 07/09/20 [History Confirmed 06/15/21] cholecalciferol (vitamin D3) 25 mcg (1,000 unit) capsule 25 mcg PO DAILY 11/05/20 [History Confirmed 06/15/21] lisinopril 40 mg tablet 40 mg PO DAILY tab 11/05/20 [History Confirmed 06/15/21] potassium chloride 20 mEq oral packet 20 meq PO DAILY each 11/05/20 [History Confirmed 06/15/21] sodium bicarbonate 325 mg tablet 325 mg PO BID tab 11/05/20 [History Confirmed 06/15/21] ascorbic acid (vitamin C) 1,000 mg tablet 1 g PO DAILY tab 11/20/20 [History Confirmed 06/15/21] cyanocobalamin (vitamin B-12) 1,000 mcg PO DAILY 11/20/20 [History Confirmed 06/15/21] multivit,Ca,min-iron 8 mg-folic acid 200 mcg-lycopene 600 mcg tablet 1 tab PO DAILY tab 11/20/20 [History Confirmed 06/15/21] omega-3 fatty acids 1,000 mg PO DAILY 11/20/20 [History Confirmed 06/15/21] valacyclovir 1,000 mg PO DAILY PRN PRN 11/20/20 [History Confirmed 06/15/21] zinc 50 mg PO DAILY 11/20/20 [History Confirmed 06/15/21] PFS Medical History Alcohol withdrawal BMI 27.0-27.9,adult Chronic alcohol dependence, continuous Electrolyte abnormality Elevated LFTs Essential (primary) hypertension HLD (hyperlipidemia) Hypokalemia Hyponatremia NUHA (obstructive sleep apnea) Right inguinal hematoma Scalp laceration Seizure Thrombocytopenia Tobacco use Surgical History History of hernia repair History of loop recorder (01/07/21) Family History Mother Asthma Social History Smoking Status: Current every day smoker Smokeless tobacco user: chewing tobacco and snuff alcohol intake: current alcohol intake frequency: 3 or more drinks per day Alcohol type: beer and wine HPI HPI HPI: JAVIER STRICKLAND, is a 55 M who presents to the office today for diarrhea. The patient reports he was going upwards of 16 times per day. This is been going on for very long time. The patient reports no abdominal pain. He is taking loperamide at this time which seems to be helping in decreasing his bowel movements to 6/day. He does not describe any blood in his stool. Patient had a last colonoscopy about 5 or 6 years ago. ROS General General: No weight change, appetite, fatigue, colon cancer, breast cancer or weakness HEENT HEENT: No difficulty swallowing, eye injury, eye surgery, swollen glands or hoarseness Endo Endocrine: No thyroid disease, diabetes mellitus, thyroid cancer, Hair loss, heat intolerance or cold intolerance Skin Skin: No rash or changing moles Breast Breast: No left breast lump, right breast lump, nipple discharge, breast pain, abnormal mammogram, abnormal US or breast enlargement Musc Musculoskeletal: No back problems, arthritis, rheumatoid arthritis, gout or joint pain Cardio Cardiovascular: Yes pacemaker and high blood pressure; No murmur, heart disease, atrial fibrillation, heart attack, heart stent, palpitations, shortness of breat with exertion or chest pain Psych Psychiatric: Yes anxiety; No depression or hearing voices Resp Respiratory: No shortness of breath, Yes sleep apnea, No cough, Yes COPD, No asthma, No emphysema and No wheezing Gastro Gastrointestinal: No abdominal pain, No nausea or vomiting, No diarrhea, No constipation, No blood in stool, No acid reflux, No hemorrhoids, No ulcers, No gallbladder problem and No black,tarry stools Ahmet Hematologic: No blood thinners, No blood disorders, No bleeding, No anemia and No blood clots Neuro Neurologic: No system reviewed and no additional complaints, except as documented, No as per HPI, No abnormal gait, No abnormal hearing, No abnormal movements, No abnormal speech, No behavioral changes, No burning sensations, No confusion, No convulsions, No disequilibrium, No dizziness, No localized weakness, No frequent falls, No headache(s), No lack of coordination, No loss of vision, No memory loss, No numbness, No other visual disturbances, No radicular pain, No restless legs, No sensory deficit, No syncope, No tingling, No tremor(s), No weakness and No other Exam Const General: cooperative Orientation: alert and oriented x3 HENMT Head: normal to inspection Neck Neck: normal visual inspection and full ROM Chest Chest palpation & inspection: normal inspection of the chest Resp Effort & Inspection: normal respiratory effort Auscultation: clear to auscultation bilaterally Cardio Rate: regular rate Rhythm: regular rhythm GI Inspection: non-distended Palpation: soft and nontender Skin General: no rashes or lesions noted Neuro General: patient alert and patient oriented x3 Extrem General: full ROM Psych Appearance: grossly normal Mental Status: mental status grossly normal Assessment and Plan Assessment and Plan (1) Diarrhea: Status: Acute Qualifiers: Diarrhea type: unspecified type Qualified Code(s): R19.7 - Diarrhea, unspecified Orders: Orders: Colonoscopy Today Plan - Dr. Micheal Mercado MD: Recommend colonoscopy with biopsies of the colon to ensure that the patient is not having microscopic colitis. I explained endoscopy in detail to the patient. I explained the risks including but not limited to stroke or heart attack with anesthesia, perforation of the GI tract, bleeding, infection. I explained that any of these could necessitate further emergency surgery. The patient understands and all questions were answered sufficiently. The patient wishes to proceed with procedure. Micheal Mercado MD Pager: [facility] [address] [place] [address], [address] [place] [phone] Office: I have re-examined the patient. There are no clinical changes since date of exam.
--- NOTE | 2021-06-23 08:33 | OP.CCLET_ITS ---
06/23/2021 Rupert Coker Md Re : Colonoscopy procedure for Cesario Mg Dear John Paul This procedure was performed on Wednesday, June 23, 2021. My impressions and recommendations are as follows: Impressions : - The entire examined colon is normal on direct and retroflexion views. - Biopsies were taken with a cold forceps from the entire colon for evaluation of microscopic colitis. Recommendations : - Discharge patient to home. - Resume previous diet. - Continue present medications. - Await pathology results. - Repeat colonoscopy in 10 years for surveillance based on pathology results. My findings are described in the full procedure note, which is enclosed. If I can be of further assistance, please feel free to contact me at Doctor phone number(s): , Work: . Sincerely, Micheal Mercado MD 06/23/2021 8:32:23 AM This report has been signed electronically.
--- NOTE | 2021-06-23 08:33 | OP.COLON_ITS ---
Patient Name: Cesario Mg Procedure Date: 06/23/2021 8:05 AM Date of : 1965 Age: 55 Procedure: Colonoscopy Indications: Chronic diarrhea Providers: Micheal Mercado MD Referring MD: Micheal Mercado MD Medicines: Monitored Anesthesia Care Patient Profile: This is a 55 year old male. Refer to note in patient chart for documentation of history and physical. Last Colonoscopy: 5 years ago. Complications: No immediate complications. Estimated blood loss: Minimal. Procedure: Pre-Anesthesia Assessment: - Prior to the procedure, a History and Physical was performed, and patient medications and allergies were reviewed. The patient's tolerance of previous anesthesia was also reviewed. The risks and benefits of the procedure and the sedation options and risks were discussed with the patient. All questions were answered, and informed consent was obtained. Prior Anticoagulants: The patient has taken no previous anticoagulant or antiplatelet agents. After reviewing the risks and benefits, the patient was deemed in satisfactory condition to undergo the procedure. After I obtained informed consent, the scope was passed under direct vision. Throughout the procedure, the patient's blood pressure, pulse, and oxygen saturations were monitored continuously. The Colonoscope was introduced through the anus and advanced to the cecum, identified by appendiceal orifice and ileocecal valve. The colonoscopy was performed without difficulty. The patient tolerated the procedure well. The quality of the bowel preparation was good. Scope In: 8:18:30 AM Scope Withdrawal Time 0 hours 6 minutes 11 seconds Scope Out: 8:29:29 AM Total Procedure Duration Time 0 hours 10 minutes 59 seconds Findings: The entire examined colon appeared normal on direct and retroflexion views. Biopsies for histology were taken with a cold forceps from the entire colon for evaluation of microscopic colitis. Impression: - The entire examined colon is normal on direct and retroflexion views. - Biopsies were taken with a cold forceps from the entire colon for evaluation of microscopic colitis. Recommendation: - Discharge patient to home. - Resume previous diet. - Continue present medications. - Await pathology results. - Repeat colonoscopy in 10 years for surveillance based on pathology results. Procedure Code(s): --- Professional --- 32077, Colonoscopy, flexible; with biopsy, single or multiple Diagnosis Code(s): --- Professional --- K52.9, Noninfective gastroenteritis and colitis, unspecified CPT copyright 2017 [employer]. All rights reserved. The codes documented in this report are preliminary and upon culinary manager review may be revised to meet current compliance requirements. Micheal Mercado MD 06/23/2021 8:32:23 AM This report has been signed electronically. Number of Addenda: 0 Note Initiated On: 06/23/2021 8:05 AM
== END 2021-06-23 09:10 | disposition home or self-care (01) ==
LOC: EN 07:06 → AC 07:06
PROVIDERS: PCP Family Medicine; Referring Provider Surgery; Visit Provider Surgery
PROC: 0DJD8ZZ Inspection of Lower Intestinal Tract, Via Natural or Artificial Opening Endoscopic (ICD-10-PCS; CPT 45378; principal; 2021-06-23 07:55)
DX: K52.9 Noninfective gastroenteritis and colitis, unspecified (principal); I10 Essential (primary) hypertension; E78.5 Hyperlipidemia, unspecified; F17.220 Nicotine dependence, chewing tobacco, uncomplicated; J44.9 Chronic obstructive pulmonary disease, unspecified; G47.30 Sleep apnea, unspecified; Z79.899 Other long term (current) drug therapy
CPT/HCPCS: 45380; 87426; 88305; J7120; J2405

== ENCOUNTER 2021-10-02 10:14 | Outpatient (CLI) | payer MEDICAID, SELFPAY ==
[2021-10-02 13:10] LABS: AST(SGOT) 394 U/L (15-37); Alanine Aminotransfer ALT/SGPT 247 U/L (16-61); Anion Gap 11 (5-15); BUN 10 mg/dL (7-18); BUN/Creat Ratio 9.6 RATIO (10-20); Calcium,Total 8.9 mg/dL (8.5-10.1); Chloride 100 mmol/L (98-107); Cholesterol 198 mg/dL (200); Creatinine, Serum 1.04 mg/dL (0.70-1.30); EST Glomerular Filtration Rate 79 mL/min (>60); Est Glom Filt Rate - Afr Amer 95 mL/min (>60); Glucose 81 mg/dL (74-106); High Density Lipoprotein 122 mg/dL; Potassium 3.6 mmol/L (3.5-5.1); Sodium Level 138 mmol/L (136-145); Triglycerides 55 mg/dL; Very Low Density Lipoprotein 11 mg/dL (5-40)
== END 2021-10-02 23:59 | disposition short-term general hospital (02) ==
LOC: MFPLAB 10:19
PROVIDERS: PCP Family Medicine; Referring Provider Family Medicine; Visit Provider Family Medicine
DX: E78.00 Pure hypercholesterolemia, unspecified (principal); I10 Essential (primary) hypertension
CPT/HCPCS: 36415; 80048; 80061; 84450; 84460

== ENCOUNTER 2021-10-06 06:59 | Inpatient (IN) | payer MEDICAID, SELFPAY ==
[2021-10-06] VITALS (7 sets, daily range): BP systolic 128–142; BP diastolic 72–100; PULSE 70–83; RESP 16–18; TEMP 36.4–36.8; O2SAT 95–96; BMI 23.3
--- NOTE | 2021-10-06 07:13 | EKG12_ITS ---
Test Reason : DETOX Blood Pressure : / mmHG Vent. Rate : 073 BPM Atrial Rate : 073 BPM P-R Int : 154 ms QRS Dur : 086 ms QT Int : 396 ms P-R-T Axes : 046 -38 046 degrees QTc Int : 436 ms Normal sinus rhythm Left axis deviation Nonspecific ST abnormality Abnormal ECG Confirmed by YOBANY HARRINGTON, NNEKA ([id number]), fan mail editor CHERYL WAGNER ([id number]) on 10/08/2021 10:52:48 AM Referred By: JAYMIE Confirmed By:BILLY HAYWOOD MD
--- NOTE | 2021-10-06 07:16 | EDS_ITS ---
HPI History of Present Illness Chief Complaint: Substance Abuse Informant: patient and spouse/S.O. Narrative Narrative: Patient is a 56-year-old male with history of alcohol dependency, seizure secondary to hyponatremia and hypertension as well as obstructive sleep apnea (on CPAP) presenting with for request of alcohol detox. Patient normally drinks a 24 case of [place] Light daily. His last drink was 8 PM last night and then he got the shakes on the way to the ER so he had a beer in the parking lot. Patient denies any physical complaints. His PCP informed him of worsening liver function with checkup last week (patient had a mild transaminitis with an AST of 394 and an ALT of 247) and the patient made the decision that he needs to stop drinking otherwise the drinking will kill him. Patient states he was last sober approximately 12 years ago. Patient dips tobacco. He denies any other concerns or complaints at this time. Did take his morning medications. Patient does have a loop recorder in place. PFSH PFS Medical History Alcohol use Alcohol withdrawal Back pain BMI 27.0-27.9,adult Cardiology follow-up encounter Chewing tobacco nicotine dependence Chronic alcohol dependence, continuous COPD (chronic obstructive pulmonary disease) CPAP (continuous positive airway pressure) dependence Diarrhea Electrolyte abnormality Elevated LFTs Essential (primary) hypertension Head ache Heartburn High cholesterol History of echocardiogram History of Holter monitoring History of ulceration History of umbilical hernia HLD (hyperlipidemia) Hypoglycemia Hypokalemia Hyponatremia Injury of head and neck Loss of consciousness Marijuana use NUHA (obstructive sleep apnea) Restless legs Right inguinal hematoma Scalp laceration Seizure Seizures Thrombocytopenia Tobacco use Home Medications amlodipine 5 mg PO DAILY 03/11/19 [History Last Taken 11/19/20] rosuvastatin 40 mg PO QHS 03/11/19 [History Last Taken 11/19/20] cetirizine 10 mg PO DAILY 07/09/20 [History Last Taken 11/19/20] potassium chloride 20 mEq oral packet 20 meq PO DAILY each 11/05/20 [History Last Taken 11/19/20] sodium bicarbonate 325 mg tablet 325 mg PO BID tab 11/05/20 [History Last Taken 11/19/20] multivit,Ca,min-iron 8 mg-folic acid 200 mcg-lycopene 600 mcg tablet 1 tab PO DAILY tab 11/20/20 [History Last Taken 11/19/20] Lactobacillus acidophilus [Probiotic] 10,000 mmu cells PO DAILY 10/06/21 [History Last Taken Unknown] acyclovir 800 mg PO BID PRN 10/06/21 [History Last Taken Unknown] citalopram 40 mg PO DAILY 10/06/21 [History Last Taken Unknown] melatonin 3 mg PO QHS 10/06/21 [History Last Taken Unknown] Allergy/AdvReac Type Severity Reaction Status Date / Time No Known Allergies Allergy Verified 10/06/21 07:00 Family History Mother Asthma Surgical History History of hernia repair History of loop recorder (01/07/21) Hx of colonoscopy Hx of left inguinal hernia repair Hx of right inguinal hernia repair Social History Smoking Status: Current every day smoker tobacco type: smokeless tobacco Smokeless tobacco user: chewing tobacco and snuff alcohol intake: current alcohol intake frequency: 3 or more drinks per day Alcohol type: beer and wine ROS ROS ED Constitutional Constitutional ED: Denies chills or fever(s) Eyes Eyes: Denies change in vision ENT ENT ED: Denies ear pain or sore throat Cardiovascular Cardiovascular: Denies chest pain or palpitations Respiratory/Chest Respiratory/Chest: Denies cough or dyspnea Gastrointestinal Gastrointestinal: Denies abdominal pain, melena, nausea or vomiting Genitourinary Genitourinary ED: Denies dysuria or urinary frequency Musculoskeletal Musculoskeletal: Denies arthralgias or myalgias Integumentary Denies rash Neurologic Neurologic: Reports other Details: tremors ; Denies headache(s) or weakness Psychiatric Psychiatric: Denies anxiety or depression Hematologic/Lymphatic Hematologic/Lymphatic: Denies easy bruising EXAM Physical Exam Const Vital Signs: 10/06/21 07:01 10/06/21 07:04 10/06/21 07:36 Temperature 97.7 F L 97.6 F L Temperature Source Oral Oral Pulse Rate 73 81 Respiratory Rate 16 16 Blood Pressure 141/100 H 142/98 H Blood Pressure Mean 113 112 Pulse Ox 95 95 Oxygen Delivery Method Room Air Room Air Room Air Positive well nourished and well developed General Appearance ED: well developed HEENT Reports moist mucous membranes atraumatic Eyes PERRL and EOMs intact bilaterally Neck supple and no JVD Chest Wall inspection of chest normal Resp normal respiratory effort and clear to auscultation bilaterally Cardio regular rate, regular rhythm and no murmurs GI soft to palpation Neuro oriented x3 and no sensory deficits noted Sensorium / Orientation: alert Speech: speech normal Motor Exam: Negative for general weakness Psych mental status grossly normal and thought process normal Skin General Skin Exam: Negative for jaundice Rashes: no rashes MDM MDM MDM Narrative Medical decision making narrative: Patient presents with request for alcohol detox. Medical screening labs obtained. As patient is feeling tremulous, he is given a dose of phenobarbital in the ER. Labs from 10/02 are reviewed and rechecked today. Patient's lab work is consistent with a transaminitis as before and a mild leukopenia with white blood cell count of 4.1. Blood alcohol level is elevated. Patient clinically did not appear intoxicated. Patient is admitted to medicine service for inpatient detox and addiction medicine services. Lab Data Attestation: I reviewed the patient's lab results. Labs: Laboratory Results - last 24 hr 10/06/21 10/06/21 10/06/21 07:08 07:08 07:08 WBC 4.1 L RBC 4.77 Hgb 15.2 Hct 44.3 MCV 92.9 MCH 31.9 MCHC 34.3 RDW Std Deviation 42.4 RDW Coeff of Sheryl 12.2 Plt Count 91 L MPV 10.3 Neut % (Auto) Not Reportable Sodium 136 Potassium 3.8 Chloride 99 Carbon Dioxide 31.0 Anion Gap 6 BUN 12 Creatinine 1.19 Estim Creat Clear Calc 74.70 Est GFR (MDRD) Af Amer 82 Est GFR (MDRD) Non-Af 67 BUN/Creatinine Ratio 10.1 Glucose 96 Calcium 8.9 Total Bilirubin 0.80 Direct Bilirubin 0.41 H AST 453 H ALT 300 H Alkaline Phosphatase 123 H Total Protein 8.0 Albumin 3.9 Globulin 4.1 Urine Opiates Screen Urine Methadone Screen Ur Barbiturates Screen Ur Phencyclidine Scrn Ur Amphetamines Screen U Methamphetamin-MDMA U Benzodiazepines Scrn Urine Cocaine Screen U Cannabinoids Screen Ur Drug Screen Comment Ethyl Alcohol 10/06/21 10/06/21 07:08 07:34 WBC RBC Hgb Hct MCV MCH MCHC RDW Std Deviation RDW Coeff of Sheryl Plt Count MPV Neut % (Auto) Sodium Potassium Chloride Carbon Dioxide Anion Gap BUN Creatinine Estim Creat Clear Calc Est GFR (MDRD) Af Amer Est GFR (MDRD) Non-Af BUN/Creatinine Ratio Glucose Calcium Total Bilirubin Direct Bilirubin AST ALT Alkaline Phosphatase Total Protein Albumin Globulin Urine Opiates Screen NEGATIVE Urine Methadone Screen NEGATIVE Ur Barbiturates Screen NEGATIVE Ur Phencyclidine Scrn NEGATIVE Ur Amphetamines Screen NEGATIVE U Methamphetamin-MDMA NEGATIVE U Benzodiazepines Scrn NEGATIVE Urine Cocaine Screen NEGATIVE U Cannabinoids Screen NEGATIVE Ur Drug Screen Comment Ethyl Alcohol 371.0 H* Rhythm Strip Rhythm Strip: Sinus Rhythm Rate: 73 Ectopy: None EKG Initial EKG: Attestation: I personally reviewed and interpreted this EKG as follows: Interpretation: Sinus Rhythm Comments: Normal sinus rhythm at a rate of 73 Left axis deviation Normal intervals Nonspecific ST abnormalities Discharge Plan Triage Chief Complaint: Substance Abuse ED Provider: Monica Spencer Dx/Rx/DC Orders Clinical Impression: Alcohol dependence, Transaminitis Prescriptions: No Action Centrum Men 8 mg iron- 200 mcg-600 mcg tablet 1 tab PO DAILY RF: 0 sodium bicarbonate 325 mg tablet 325 mg PO BID RF: 0 potassium chloride 20 mEq packet 20 meq PO DAILY RF: 0 rosuvastatin 40 MG tablet 40 mg PO QHS RF: 0 amlodipine 5 MG tablet 5 mg PO DAILY RF: 0 cetirizine 10 MG tablet 10 mg PO DAILY RF: 0 citalopram 40 mg tablet 40 mg PO DAILY RF: 0 melatonin 3 mg tablet 3 mg PO QHS RF: 0 acyclovir 800 mg Tablet 800 mg PO BID PRN (Reason: Rash) RF: 0 Probiotic 10 billion cell Capsule 10,000 mmu cells PO DAILY RF: 0 Primary Care Provider: Geeta Chavez Referrals: Geeta Chavez MD [Primary Care Provider] - Disposition Disposition: Acute Care Hospital [facility]
--- NOTE | 2021-10-06 07:29 | NURSING ---
MED SURG JOPPERI ALCOHOL DETOX
[2021-10-06 07:42] LABS: Hematocrit 44.3 % (40-54); Hemoglobin 15.2 g/dL (13.0-16.5); Mean Corp Hgb Conc 34.3 g/dL (32-36); Mean Corpuscular Hgb 31.9 pg (27.0-32.0); Mean Corpuscular Volume 92.9 fL (80-94); Mean Platelet Vol. 10.3 fl (6.2-12.0); POSITIVE COUNT YES; RBC Distribution Width CV 12.2 % (11.6-14.6); RBC Distribution Width SD 42.4 fl (35.1-43.9); Red Blood Count 4.77 M/mm3 (4.6-6.2); White Blood Count 4.1 K/mm3 (4.4-11.0)
[2021-10-06 07:54] LABS: Anion Gap 6 (5-15); BUN 12 mg/dL (7-18); BUN/Creat Ratio 10.1 RATIO (10-20); Calcium,Total 8.9 mg/dL (8.5-10.1); Chloride 99 mmol/L (98-107); Creatinine, Serum 1.19 mg/dL (0.70-1.30); EST Glomerular Filtration Rate 67 mL/min (>60); Est Glom Filt Rate - Afr Amer 82 mL/min (>60); Glucose 96 mg/dL (74-106); Potassium 3.8 mmol/L (3.5-5.1); Sodium Level 136 mmol/L (136-145)
[2021-10-06 07:54] LABS: Amphetamine Urine VISTA NEGATIVE (<1000 ng/mL); Barbiturate Urine VISTA NEGATIVE (< 200 ng/mL); Benzodiazepine Urine VISTA NEGATIVE (< 200 ng/mL); Cocaine Urine VISTA NEGATIVE (< 300 ng/mL); Ecstacy Urine VISTA NEGATIVE (< 500 ng/mL); Methadone Urine VISTA NEGATIVE (< 300 ng/mL); PCP Urine VISTA NEGATIVE (< 25 ng/mL); THC Urine VISTA NEGATIVE (< 50 ng/mL); Vista UDS pH Range 6
[2021-10-06 07:59] LABS: Differential Indicated MANUAL DIFF; Platelet Count 91 K/mm3 (150-450)
--- NOTE | 2021-10-06 07:59 | PCM.HP.STD ---
HPI - General HPI Narrative JAVIER STRICKLAND, is a 56 M who presents presents seeking treatment for alcohol withdrawal. Patient last drink was in the parking lot prior to walk into the emergency room. Patient drinks 24 pack of [place] Light per day. Patient states that his little bit of tremors. Patient had been sober about 12 years ago. Patient had lab work performed recently that showed his AST and ALT being elevated. When I was brought to the patient's attention he had a desire for detoxification of alcohol. [facility] Medical History Alcohol use Alcohol withdrawal Back pain BMI 27.0-27.9,adult Cardiology follow-up encounter Chewing tobacco nicotine dependence Chronic alcohol dependence, continuous COPD (chronic obstructive pulmonary disease) CPAP (continuous positive airway pressure) dependence Diarrhea Electrolyte abnormality Elevated LFTs Essential (primary) hypertension Head ache Heartburn High cholesterol History of echocardiogram History of Holter monitoring History of ulceration History of umbilical hernia HLD (hyperlipidemia) Hypoglycemia Hypokalemia Hyponatremia Injury of head and neck Loss of consciousness Marijuana use NUHA (obstructive sleep apnea) Restless legs Right inguinal hematoma Scalp laceration Seizure Seizures Thrombocytopenia Tobacco use Home Medications amlodipine 5 mg PO DAILY 03/11/19 [History Last Taken 11/19/20] rosuvastatin 40 mg PO QHS 03/11/19 [History Last Taken 11/19/20] cetirizine 10 mg PO DAILY 07/09/20 [History Last Taken 11/19/20] potassium chloride 20 mEq oral packet 20 meq PO DAILY each 11/05/20 [History Last Taken 11/19/20] sodium bicarbonate 325 mg tablet 325 mg PO BID tab 11/05/20 [History Last Taken 11/19/20] multivit,Ca,min-iron 8 mg-folic acid 200 mcg-lycopene 600 mcg tablet 1 tab PO DAILY tab 11/20/20 [History Last Taken 11/19/20] Lactobacillus acidophilus [Probiotic] 10,000 mmu cells PO DAILY 10/06/21 [History Last Taken Unknown] acyclovir 800 mg PO BID PRN 10/06/21 [History Last Taken Unknown] citalopram 40 mg PO DAILY 10/06/21 [History Last Taken Unknown] melatonin 3 mg PO QHS 10/06/21 [History Last Taken Unknown] Allergy/AdvReac Type Severity Reaction Status Date / Time No Known Allergies Allergy Verified 10/06/21 07:00 Family History Mother Asthma Surgical History History of hernia repair History of loop recorder (01/07/21) Hx of colonoscopy Hx of left inguinal hernia repair Hx of right inguinal hernia repair Social History Smoking Status: Current every day smoker tobacco type: smokeless tobacco Smokeless tobacco user: chewing tobacco and snuff alcohol intake: current alcohol intake frequency: 3 or more drinks per day Alcohol type: beer and wine ROS ROS Narrative Patient had Covid about a year ago. Denies any current COVID-19 exposures. All review of systems were negative except as mentioned above in the history of present illness and the other review of systems. Vital Signs Vital Signs Vital Signs: 10/06/21 07:01 10/06/21 07:04 10/06/21 07:36 Temperature 36.5 C L 36.4 C L Temperature Source Oral Oral Pulse Rate 73 81 Respiratory Rate 16 16 Blood Pressure 141/100 H 142/98 H Blood Pressure Mean 113 112 Pulse Ox 95 95 Oxygen Delivery Method Room Air Room Air Room Air Weight Weight: 76.1 kg Body Mass Index (BMI) 23.3 Physical Exam Const alert General Appearance: cooperative HEENT HEENT Narrative: No icterus Resp normal respiratory effort, no retractions, no use of accessory muscles and clear to auscultation bilaterally Cardio regular rate, regular rhythm, S1 normal heart sound and S2 normal heart sound GI normal to inspection, nondistended, normoactive bowel sounds, soft to palpation, non-tender and non-distended Extremity normal to inspection Neuro oriented x3 Sensorium / Orientation: awake, alert and oriented to person Psych affect normal Results Lab / Micro Data Result Diagrams: 10/06/21 07:08 10/06/21 07:08 Labs: Laboratory Results - last 24 hr 10/06/21 07:08: Sodium 136, Potassium 3.8, Chloride 99, Carbon Dioxide 31.0, Anion Gap 6, BUN 12, Creatinine 1.19, Estim Creat Clear Calc 74.70, Est GFR (MDRD) Af Amer 82, Est GFR (MDRD) Non-Af 67, BUN/Creatinine Ratio 10.1, Glucose 96, Calcium 8.9 10/06/21 07:34: Urine Opiates Screen NEGATIVE, Urine Methadone Screen NEGATIVE, Ur Barbiturates Screen NEGATIVE, Ur Phencyclidine Scrn NEGATIVE, Ur Amphetamines Screen NEGATIVE, U Methamphetamin-MDMA NEGATIVE, U Benzodiazepines Scrn NEGATIVE, Urine Cocaine Screen NEGATIVE, U Cannabinoids Screen NEGATIVE, Ur Drug Screen Comment Assessment & Plan Assessment/Plan (1) History of alcohol abuse: (2) Transaminitis: PLAN: 1. Alcohol withdrawal Patient symptoms are rather mild but it has only been less than hours since his last drink Phenobarbital taper plus additional medications with other somatic complaints associated with his withdrawal. Discussed with the patient that he will be meeting with an addiction liaison to facilitate outpatient follow-up when this program has been completed Thiamine and folate 2. Transaminitis On the , it was abnormal and still is abnormal today. His AST is 453 and ALT is 300. and April was normal. Bilirubin total was normal direct bilirubin is 0.41. Alk phos 123. Likely due to heavy alcohol consumption 3. History of cardiac arrhythmia not otherwise specified Patient has a loop recorder in place and has a special phone that registers his rhythm and ports that to a database but does not nightly. This phone is not his normal phone by phone use directly for this loop recorder. Patient may continue to use that while in the hospital under the RAMP program 4. Seizures Patient stated that he had seizures that was related with fall and may be alcohol withdrawal. He is only for 1 day has not had them since. He has seen neurology in the past and is currently on no antiepileptic drugs Monitor closely in case patient does have any evidence of alcohol withdrawal seizures. 5. VTE prophylaxis: Not indicated. 6. CODE STATUS: Addressed with the patient. Patient wished to be full CODE STATUS. 7. COVID-19 vaccination status: Patient is unvaccinated. He stated that he has had Covid about a year ago. I did recommend vaccination as immunity can wane even with prior infections. I did inform him and his significant other that he could least receive the first dose of the vaccination while he is here in the hospital. He did not answer any affirmative either way. Charges/Coding Visit Charges Inpatient E&M: 29464 Init Hosp L2
[2021-10-06 08:00] LABS: AST(SGOT) 453 U/L (15-37); Alanine Aminotransfer ALT/SGPT 300 U/L (16-61); Albumin, Serum 3.9 g/dL (3.2-5.0); Alkaline Phosphatase 123 U/L (45-117); Bilirubin, Direct 0.41 mg/dL (0.00-0.30); Globulin 4.1 g/dL (2.2-4.2)
[2021-10-06 08:31] LABS: Metamyelocyte 1 % (0-1); Neutrophil-Segmented 62 % (47-70); Total Cells Counted 100 (MANUAL DIFF)
[2021-10-06 08:32] LABS: Eosinophil 3 % (0-5); Lymphocyte 25 % (19-41); Monocyte 5 % (0-10); Myelocyte 4 % (0-0)
[2021-10-06 08:34] LABS: Absolute Neutrophil Count 2.6 X10^3/uL (2.0-7.7)
--- NOTE | 2021-10-06 09:03 | ED.RN ---
physician stated phenobarb can be held
[2021-10-06] MEDS: Phenobarbital 32.4 MG Tablet 64.8 MG PO ×4 (09:51→21:59)
[2021-10-06] MEDS: hydrOXYzine PAM 25 MG Capsule 50 MG PO ×2 (09:51→18:46)
[2021-10-06] MEDS: Dicyclomine 10 MG Capsule 20 MG PO ×2 (09:51→18:46)
[2021-10-06] MEDS: Potassium Chloride Oral Tablet 20 MEQ PO (12:16)
[2021-10-06] MEDS: Thiamine Hydrochloride 100 MG Tablet PO (12:17)
[2021-10-06] MEDS: Loratadine 10 MG Tablet PO (12:17)
[2021-10-06] MEDS: amLODIPine 5 MG Tablet PO (12:18)
[2021-10-06] MEDS: Citalopram 40 MG TABLET PO (12:18)
[2021-10-06] MEDS: Folic Acid 1 MG Tablet PO (12:18)
[2021-10-06] MEDS: Sodium Bicarbonate 650 MG Tablet 325 MG PO ×2 (13:36→22:00)
--- NOTE | 2021-10-06 14:51 | PCS.PANDOC ---
PANDEMIC DOCUMENTATION INITIATED: Date: 04/20/2021 Time: 190
--- NOTE | 2021-10-06 15:17 | CHAPLAIN ---
Type of Pastoral Visit _x__ Initial Visit ___ Follow-up Visit ___ On-call Visit ___ General Patient Visit ___ Spiritual Assessment ___ Family Conference ___ Bereavement ___ Rapid Response ___ Code Blue ___ Other (describe below) Pastoral Care Referral From _x__ Patient ___ Family ___ Nurse ___ Physician ___ Logistics System Engineer ___ Cable Splicer Apprentice ___ Other (describe below) Sacrament/Intervention _x__ Active listening ___ Anointing ___ Mosque ___ Bereavement ___ Communion _x__ Haydee exploration ___ _x__ Life review _x__ Prayer ___ Reconciliation ___ Sacrament of Sick _x__ Supportive presence ___ Wedding ___ Other (describe below) 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
[2021-10-06] MEDS: Atorvastatin Calcium 80 MG Tablet PO (22:00)
[2021-10-06] MEDS: MELATONIN 3 MG TABLET PO (22:00)
[2021-10-06] MEDS: Gabapentin 300 MG Capsule PO (22:00)
[2021-10-07] VITALS (7 sets, daily range): BP systolic 131–154; BP diastolic 87–98; PULSE 79–102; RESP 12–18; TEMP 36.6–37.6; O2SAT 94–99
[2021-10-07] MEDS: Phenobarbital 32.4 MG Tablet 64.8 MG PO ×6 (02:05→21:41)
[2021-10-07] MEDS: Loperamide 2 MG Capsule PO (02:06)
[2021-10-07] MEDS: Dicyclomine 10 MG Capsule 20 MG PO (02:06)
[2021-10-07] MEDS: hydrOXYzine PAM 25 MG Capsule 50 MG PO (02:06)
[2021-10-07 05:14] LABS: AST(SGOT) 283 U/L (15-37); Alanine Aminotransfer ALT/SGPT 204 U/L (16-61); Albumin, Serum 3.4 g/dL (3.2-5.0); Alkaline Phosphatase 101 U/L (45-117); Anion Gap 8 (5-15); BUN 15 mg/dL (7-18); BUN/Creat Ratio 16.7 RATIO (10-20); Calcium,Total 8.5 mg/dL (8.5-10.1); Chloride 96 mmol/L (98-107); EST Glomerular Filtration Rate 93 mL/min (>60); Est Glom Filt Rate - Afr Amer 113 mL/min (>60); Estimated Creatinine Clearance 98.77 ml/min; Globulin 3.4 g/dL (2.2-4.2); Glucose 80 mg/dL (74-106); Potassium 3.1 mmol/L (3.5-5.1); Protein, Total 6.8 g/dL (6.4-8.2); Sodium Level 133 mmol/L (136-145)
--- NOTE | 2021-10-07 09:03 | CASEMGMT ---
EDWIGE called [place], Addiction Services for [facility] and left her a voice mail regarding patient. Teressa Gaona ETHNOARCHAEOLOGIST [place]OOD
[2021-10-07] MEDS: Folic Acid 1 MG Tablet PO (09:06)
[2021-10-07] MEDS: Citalopram 40 MG TABLET PO (09:06)
[2021-10-07] MEDS: Sodium Bicarbonate 650 MG Tablet 325 MG PO ×2 (09:06→21:41)
[2021-10-07] MEDS: amLODIPine 5 MG Tablet PO (09:06)
[2021-10-07] MEDS: Multivitamins,Ther W-Minerals Tablet 1 TABLET PO (09:06)
[2021-10-07] MEDS: Thiamine Hydrochloride 100 MG Tablet PO (09:06)
[2021-10-07] MEDS: Loratadine 10 MG Tablet PO (09:08)
[2021-10-07] MEDS: Potassium Chloride Oral Tablet 20 MEQ PO (09:15)
[2021-10-07] MEDS: Potassium Chloride Oral Tablet 20 MEQ 40 MEQ PO (09:15)
[2021-10-07 10:27] LABS: Pathologist Review Reviewed
--- NOTE | 2021-10-07 11:40 | ADDICTION ---
This pattern chart writer met with PT to conduct ASAM, MSE, AUDIT assessments and to plan for d/c. PT A+Ox4 and participated actively. All assessments completed and placed in PT's chart. PT plans to f/u with individual counselor at [facility] for follow-up counseling services. PT did not indicate a need for transportation post d/c from [facility].
[2021-10-07] MEDS: Gabapentin 300 MG Capsule PO (13:07)
--- NOTE | 2021-10-07 14:59 | PCM.PN.HOSP ---
Subjective Subjective tremulous, but better than last night. Objective Data Objective Data Vital Signs: Vital Signs Temp Pulse Resp BP Pulse Ox 36.6 C 86 12 152/90 H 98 10/07/21 13:05 10/07/21 13:05 10/07/21 13:05 10/07/21 13:05 10/07/21 13:05 Oxygen Delivery Method Room Air Weight: 76.1 kg Body Mass Index (BMI) 23.3 Intake & Output: Intake and Output for Last 24 Hours 10/05/21 10/06/21 10/07/21 23:59 23:59 23:59 Intake Total 400 / 400 750 / 750 Balance 400 / 400 750 / 750 Lab / Micro Data Result Diagrams: 10/06/21 07:08 10/07/21 04:27 Labs: Laboratory Results - last 24 hr 10/06/21 07:08: Diff Path Review Reviewed 10/07/21 04:27: Sodium 133 L, Potassium 3.1 L, Chloride 96 L, Carbon Dioxide 29.0, Anion Gap 8, BUN 15, Creatinine 0.90, Estim Creat Clear Calc 98.77, Est GFR (MDRD) Af Amer 113, Est GFR (MDRD) Non-Af 93, BUN/Creatinine Ratio 16.7, Glucose 80, Calcium 8.5, Total Bilirubin 1.20 H, AST 283 H, ALT 204 H, Alkaline Phosphatase 101, Total Protein 6.8, Albumin 3.4, Globulin 3.4, Albumin/Globulin Ratio 1.0 Rhythm Strip Rhythm Strip: Sinus Rhythm Rate: 73 Ectopy: None Physical Exam Const alert and oriented x3 Constitutional Narrative: tremulous Neuro Sensorium / Orientation: awake and alert Psych affect normal Assessment & Plan Assessment/Plan (1) History of alcohol abuse: (2) Transaminitis: PLAN: 1. Alcohol withdrawal Worse today, but pt states better than last night Phenobarbital taper plus additional medications with other somatic complaints associated with his withdrawal. Discussed with the patient that he will be meeting with an addiction liaison to facilitate outpatient follow-up when this program has been completed Thiamine and folate 2. Transaminitis On the , it was abnormal and still is abnormal today. His AST is 453 and ALT is 300. and April was normal. Bilirubin total was normal direct bilirubin is 0.41. Alk phos 123. Likely due to heavy alcohol consumption improving 3. History of cardiac arrhythmia not otherwise specified Patient has a loop recorder in place and has a special phone that registers his rhythm and ports that to a database but does not nightly. This phone is not his normal phone by phone use directly for this loop recorder. Patient may continue to use that while in the hospital under the RAMP program 4. Seizures Patient stated that he had seizures that was related with fall and may be alcohol withdrawal. He is only for 1 day has not had them since. He has seen neurology in the past and is currently on no antiepileptic drugs Monitor closely in case patient does have any evidence of alcohol withdrawal seizures. 5. VTE prophylaxis: Not indicated. 6. CODE STATUS: Addressed with the patient. Patient wished to be full CODE STATUS. 7. COVID-19 vaccination status: Patient is unvaccinated. He stated that he has had Covid about a year ago. I did recommend vaccination as immunity can wane even with prior infections. I did inform him and his significant other that he could least receive the first dose of the vaccination while he is here in the hospital. He did not answer any affirmative either way. Charges/Coding Visit Charges Inpatient E&M: 73311 Subs Hosp L1
[2021-10-07] MEDS: MELATONIN 3 MG TABLET PO (21:41)
[2021-10-07] MEDS: Atorvastatin Calcium 80 MG Tablet PO (21:41)
[2021-10-07] MEDS: traZODone 100 MG Tablet PO (21:42)
[2021-10-07] MEDS: 0.9% Saline Lock 10 ML Syringe IV (21:42)
[2021-10-08] VITALS (9 sets, daily range): BP systolic 109–146; BP diastolic 78–94; PULSE 66–90; RESP 12–17; TEMP 36.6–37; O2SAT 95–97
[2021-10-08] MEDS: Phenobarbital 32.4 MG Tablet 64.8 MG PO ×6 (01:35→23:47)
[2021-10-08] MEDS: Folic Acid 1 MG Tablet PO (07:43)
[2021-10-08] MEDS: Multivitamins,Ther W-Minerals Tablet 1 TABLET PO (07:43)
[2021-10-08] MEDS: Potassium Chloride Oral Tablet 20 MEQ PO (07:43)
[2021-10-08] MEDS: Thiamine Hydrochloride 100 MG Tablet PO (07:43)
[2021-10-08] MEDS: Sodium Bicarbonate 650 MG Tablet 325 MG PO ×2 (09:36→22:08)
[2021-10-08] MEDS: amLODIPine 5 MG Tablet PO (09:37)
[2021-10-08] MEDS: Loratadine 10 MG Tablet PO (09:37)
[2021-10-08] MEDS: Gabapentin 300 MG Capsule PO ×2 (09:37→16:31)
[2021-10-08] MEDS: Citalopram 40 MG TABLET PO (09:37)
--- NOTE | 2021-10-08 12:59 | PCM.PN.HOSP ---
Subjective Subjective Feeling better. Still tremulous. Tolerating PO. Wants to be out by 2/5. Objective Data Objective Data Vital Signs: Vital Signs Temp Pulse Resp BP Pulse Ox 36.7 C 78 12 132/94 H 97 10/08/21 09:33 10/08/21 09:33 10/08/21 09:33 10/08/21 09:33 10/08/21 09:33 Oxygen Delivery Method Room Air Weight: 76.1 kg Body Mass Index (BMI) 23.3 Intake & Output: Intake and Output for Last 24 Hours 10/06/21 10/07/21 10/08/21 23:59 23:59 23:59 Intake Total 400 / 400 1550 / 2100 1989 Output Total 800 / 800 Balance 400 / 400 1550 / 1300 1190 / 1190 Lab / Micro Data Result Diagrams: 10/06/21 07:08 10/07/21 04:27 Rhythm Strip Rhythm Strip: Sinus Rhythm Rate: 73 Ectopy: None Physical Exam Const alert and no apparent distress Constitutional Narrative: normal gait. slight tremulousness. more alert today. Psych affect normal Assessment & Plan Assessment/Plan (1) History of alcohol abuse: (2) Transaminitis: PLAN: 1. Alcohol withdrawal Worse today, but pt states better than last night Phenobarbital taper plus additional medications with other somatic complaints associated with his withdrawal. Discussed with the patient that he will be meeting with an addiction liaison to facilitate outpatient follow-up when this program has been completed Thiamine and folate 2. Transaminitis On the , it was abnormal and still is abnormal today. His AST is 453 and ALT is 300. and April was normal. Bilirubin total was normal direct bilirubin is 0.41. Alk phos 123. Likely due to heavy alcohol consumption improving 3. History of cardiac arrhythmia not otherwise specified Patient has a loop recorder in place and has a special phone that registers his rhythm and ports that to a database but does not nightly. This phone is not his normal phone by phone use directly for this loop recorder. Patient may continue to use that while in the hospital under the RAMP program 4. Seizures Patient stated that he had seizures that was related with fall and may be alcohol withdrawal. He is only for 1 day has not had them since. He has seen neurology in the past and is currently on no antiepileptic drugs Monitor closely in case patient does have any evidence of alcohol withdrawal seizures. 5. VTE prophylaxis: Not indicated. 6. CODE STATUS: Addressed with the patient. Patient wished to be full CODE STATUS. 7. COVID-19 vaccination status: Patient is unvaccinated. He stated that he has had Covid about a year ago. I did recommend vaccination as immunity can wane even with prior infections. I did inform him and his significant other that he could least receive the first dose of the vaccination while he is here in the hospital. He did not answer any affirmative either way. Charges/Coding Visit Charges Inpatient E&M: 66047 Subs Hosp L1
[2021-10-08] MEDS: hydrOXYzine PAM 25 MG Capsule 50 MG PO (13:06)
[2021-10-08] MEDS: Atorvastatin Calcium 80 MG Tablet PO (22:08)
[2021-10-08] MEDS: MELATONIN 3 MG TABLET PO (22:08)
[2021-10-09 05:00] VITALS: BP 135/83; PULSE 79; RESP 15; RESP 16; TEMP 36.6; O2SAT 95
[2021-10-09] MEDS: Phenobarbital 32.4 MG Tablet 64.8 MG PO (05:39)
[2021-10-09] MEDS: Citalopram 40 MG TABLET PO (08:43)
[2021-10-09] MEDS: amLODIPine 5 MG Tablet PO (08:43)
[2021-10-09] MEDS: Loratadine 10 MG Tablet PO (08:43)
[2021-10-09] MEDS: Sodium Bicarbonate 650 MG Tablet 325 MG PO (08:43)
[2021-10-09] MEDS: Potassium Chloride Oral Tablet 20 MEQ PO (08:44)
[2021-10-09] MEDS: Multivitamins,Ther W-Minerals Tablet 1 TABLET PO (08:44)
[2021-10-09] MEDS: Thiamine Hydrochloride 100 MG Tablet PO (08:44)
[2021-10-09] MEDS: Folic Acid 1 MG Tablet PO (08:44)
[2021-10-09 08:45] VITALS: BP 139/79; PULSE 65; RESP 16; TEMP 36.4; O2SAT 97
--- NOTE | 2021-10-09 11:18 | PCM.DC ---
Discharge Instructions Diet Discharge Diet: No restrictions Activity Discharge Activity: Return to Normal Activity Follow Up Care Please Follow Up With: Robyn When: 1 week Test Results: Test results from this visit will be discussed in further detail at your follow-up appointment, if applicable. Discharge Plan Admission Admit Date/Time: 10/06/21 07:55 Primary Reason for Your Visit: alcohol withdrawal Attending Provider: Jad Bernardo Primary Care Provider: Geeta Chavez Discharge Orders/Prescriptions Prescriptions: Continued Centrum Men 8 mg iron- 200 mcg-600 mcg tablet 1 tab PO DAILY RF: 0 sodium bicarbonate 325 mg tablet 325 mg PO BID RF: 0 potassium chloride 20 mEq packet 20 meq PO DAILY RF: 0 amlodipine 5 MG tablet 5 mg PO DAILY RF: 0 cetirizine 10 MG tablet 10 mg PO DAILY RF: 0 citalopram 40 mg tablet 40 mg PO DAILY RF: 0 melatonin 3 mg tablet 3 mg PO QHS RF: 0 acyclovir 800 mg Tablet 800 mg PO BID PRN (Reason: Rash) RF: 0 Probiotic 10 billion cell Capsule 10,000 mmu cells PO DAILY RF: 0 Discontinued rosuvastatin 40 MG tablet 40 mg PO QHS RF: 0 Referrals / Follow Up: Geeta Chavez MD [Primary Care Provider] - Within 2 Weeks Brody Gloria MD [NON-STAFF] - Within 1 Month (tremor follow up) Disposition Disposition (needs filled in before D/C Order can be placed): Home, Self Care
--- NOTE | 2021-10-09 11:22 | PCM.DC.SUM ---
Providers Date of Admission: 10/06/21 Primary Care Physician: Dr. Geeta Chavez MD Reason For Visit: ALCOHOL WITHDRAWAL Diagnosis Discharge Diagnosis (1) History of alcohol abuse: Status: Acute Code(s): F10.11 - Alcohol abuse, in remission (2) Transaminitis: Status: Acute Code(s): R74.01 - Elevation of levels of liver transaminase levels Medications at Discharge Home Medications amlodipine 5 mg PO DAILY 03/11/19 cetirizine 10 mg PO DAILY 07/09/20 potassium chloride 20 mEq oral packet 20 meq PO DAILY each 11/05/20 sodium bicarbonate 325 mg tablet 325 mg PO BID tab 11/05/20 multivit,Ca,min-iron 8 mg-folic acid 200 mcg-lycopene 600 mcg tablet 1 tab PO DAILY tab 11/20/20 Probiotic 10,000 mmu cells PO DAILY 10/06/21 acyclovir 800 mg PO BID PRN 10/06/21 citalopram 40 mg PO DAILY 10/06/21 melatonin 3 mg PO QHS 10/06/21 Hospital Course Operations None Procedures None Summary of Care Provided Minutes Spent on Discharge: 28 Hospital Course: 56-year-old male seeking treatment for alcohol drawl. Patient had outpatient labs showing his AST was elevated at 394 and ALT was elevated to 47. Patient was very concerned and volunteers treatment for alcohol withdrawal. Patient was started on phenobarbital and did well. Patient does have tremors which is felt to be later states that he has a seizure while h So is concerning that this is more of an essential tremor or some other neurologic disturbance.e is drinking. related with his alcohol drawl the patient Patient advised to follow-up with neurology for further evaluation. Patient states that he has seen a neurologist in the past but did not come to a concise diagnosis. Patient will be discharged and will follow up with 180 as outpatient Physical Exam Const alert and no apparent distress Cardio regular rate, regular rhythm, S1 normal heart sound and S2 normal heart sound GI normal to inspection, nondistended, normoactive bowel sounds, soft to palpation, non-tender and non-distended Extremity normal to inspection and full ROM Neuro Sensorium / Orientation: awake and alert Weight / BMI Weight Weight: 76.1 kg Body Mass Index (BMI) 23.3 ABG / Lab / Microbiology Data Result Diagrams: 10/06/21 07:08 10/07/21 04:27 D/C Instructions Discharge Diet: No restrictions Please Follow Up With: Robyn When: 1 week Meaningful Use Info Meaningful Use Diagnoses (Choose all that apply): None applicable Discharge Plan Admission Admit Date/Time: 10/06/21 07:55 Primary Reason for Your Visit: alcohol withdrawal Attending Provider: Jad Bernardo Primary Care Provider: Geeta Chavez Discharge Orders/Prescriptions Prescriptions: Continued Centrum Men 8 mg iron- 200 mcg-600 mcg tablet 1 tab PO DAILY RF: 0 sodium bicarbonate 325 mg tablet 325 mg PO BID RF: 0 potassium chloride 20 mEq packet 20 meq PO DAILY RF: 0 amlodipine 5 MG tablet 5 mg PO DAILY RF: 0 cetirizine 10 MG tablet 10 mg PO DAILY RF: 0 citalopram 40 mg tablet 40 mg PO DAILY RF: 0 melatonin 3 mg tablet 3 mg PO QHS RF: 0 acyclovir 800 mg Tablet 800 mg PO BID PRN (Reason: Rash) RF: 0 Probiotic 10 billion cell Capsule 10,000 mmu cells PO DAILY RF: 0 Discontinued rosuvastatin 40 MG tablet 40 mg PO QHS RF: 0 Referrals / Follow Up: Geeta Chavez MD [Primary Care Provider] - Within 2 Weeks Brody Gloria MD [NON-STAFF] - Within 1 Month (tremor follow up) Disposition Disposition (needs filled in before D/C Order can be placed): Home, Self Care Charges/Coding Visit Charges Inpatient E&M: 54763 Disch Hosp
== END 2021-10-09 11:31 | disposition home or self-care (01) | DRG 775 ==
LOC: ED 08:13 → PCU 09:13
PROVIDERS: Emergency Provider Emergency Medicine; PCP Family Medicine
DX: F10.239 Alcohol dependence with withdrawal, unspecified (principal); E78.00 Pure hypercholesterolemia, unspecified; R56.9 Unspecified convulsions; J44.9 Chronic obstructive pulmonary disease, unspecified; E78.5 Hyperlipidemia, unspecified; F17.220 Nicotine dependence, chewing tobacco, uncomplicated; I10 Essential (primary) hypertension; G47.33 Obstructive sleep apnea (adult) (pediatric); R74.01 Elevation of levels of liver transaminase levels; Z86.16 Personal history of COVID-19; Y90.8 Blood alcohol level of 240 mg/100 ml or more
CPT/HCPCS: 80048; 80053; 80076; 80307; 82077; 85025; 93005; 99284; A4216

== ENCOUNTER 2021-11-11 10:15 | Outpatient (CLI) | payer MEDICAID, SELFPAY ==
[2021-11-11 12:29] LABS: AST(SGOT) 12 U/L (15-37); Alanine Aminotransfer ALT/SGPT 20 U/L (16-61); Albumin, Serum 3.7 g/dL (3.2-5.0); Alkaline Phosphatase 72 U/L (45-117); Protein, Total 7.7 g/dL (6.4-8.2)
== END 2021-11-11 23:59 | disposition home or self-care (01) ==
LOC: MFPLAB 10:16
PROVIDERS: PCP Family Medicine; Referring Provider Family Medicine; Visit Provider Family Medicine
DX: F10.20 Alcohol dependence, uncomplicated (principal)
CPT/HCPCS: 36415; 80076

== ENCOUNTER → 2022-04-26 | Outpatient (CLI) | payer MEDICAID, SELFPAY ==
[2022-04-26 12:53] LABS: Anion Gap 7 (5-15); BUN 23 mg/dL (7-18); BUN/Creat Ratio 20.5 RATIO (10-20); Calcium,Total 9.8 mg/dL (8.5-10.1); Chloride 105 mmol/L (98-107); Cholesterol 129 mg/dL (200); Creatinine, Serum 1.12 mg/dL (0.70-1.30); EST Glomerular Filtration Rate 72 mL/min (>60); Est Glom Filt Rate - Afr Amer 87 mL/min (>60); Glucose 102 mg/dL (74-106); High Density Lipoprotein 43 mg/dL; Potassium 4.1 mmol/L (3.5-5.1); Sodium Level 138 mmol/L (136-145); Triglycerides 97 mg/dL; Very Low Density Lipoprotein 19 mg/dL (5-40)
[2022-04-26 13:15] LABS: Microalbumin,Random Urine 6.7 mg/L (NO RANGE EST.); Microalbumin:Creatinine Ratio 5.6 mg/g CRE (<30 mg/g CRE)
== END | disposition home or self-care (01) ==
LOC: MFPLAB 10:12
PROVIDERS: PCP Family Medicine; Visit Provider Family Medicine
DX: I10 Essential (primary) hypertension (principal)
CPT/HCPCS: 36415; 80048; 80061; 82043; 82570

== ENCOUNTER → 2023-05-17 | Outpatient (CLI) | payer MEDICAID, SELFPAY ==
[2023-05-17 12:33] LABS: AST(SGOT) 14 U/L (15-37); Alanine Aminotransfer ALT/SGPT 23 U/L (16-61); Anion Gap 10 (5-15); BUN 10 mg/dL (7-18); BUN/Creat Ratio 11.7 RATIO (10-20); Calcium,Total 9.5 mg/dL (8.5-10.1); Chloride 102 mmol/L (98-107); Cholesterol 138 mg/dL (200); Creatinine, Serum 0.86 mg/dL (0.70-1.30); EST Glomerular Filtration Rate 98 mL/min (>60); Est Glom Filt Rate - Afr Amer 119 mL/min (>60); Glucose 90 mg/dL (74-106); High Density Lipoprotein 59 mg/dL; PSA,Total - Annual Screen 1.05 ng/mL (0.00-4.00); Potassium 3.7 mmol/L (3.5-5.1); Sodium Level 136 mmol/L (136-145); Triglycerides 132 mg/dL; Very Low Density Lipoprotein 26 mg/dL (5-40)
== END | disposition home or self-care (01) ==
LOC: MFPLAB 10:53
PROVIDERS: PCP Family Medicine; Visit Provider Family Medicine
DX: Z00.00 Encounter for general adult medical examination without abnormal findings (principal); I10 Essential (primary) hypertension; E78.00 Pure hypercholesterolemia, unspecified
CPT/HCPCS: 84153; 36415; 80048; 80061; 84450; 84460; G0103

== ENCOUNTER 2025-08-24 13:30 | Observation (INO) | payer MEDICAID, SELFPAY ==
[2025-08-24 13:31] VITALS: BP 153/96; PULSE 81; RESP 16; TEMP 36.5; O2SAT 96; BMI 23.8
--- NOTE | 2025-08-24 14:09 | EX.ED.SAOD ---
HPI History of Present Illness Chief Complaint: ETOH Intox Detail of Chief Complaint: Requesting detox from alcohol Informant: patient Narrative Narrative: Patient presents to the emergency department requesting detox from alcohol. Patient is a alcoholic and normally drinks beer about 18-20 a day. He has been doing this for about a year. He has gone through detox in the past that he thinks 2 to 3 years ago at our facility. Denies feeling suicidal or homicidal. His last drink was about 3 hours ago. Patient has history of hypertension as well as elevated cholesterol. Admits to occasional marijuana usage and chewing tobacco. [facility] Medical History (Updated 08/24/25 @ 15:[address] Carlitos Scott, DO) Anxiety Smoker Hypertension Osteoarthritis of left knee Left knee pain Tobacco abuse Syncope and collapse Alcohol dependence Marijuana use Alcohol use Hypoglycemia Restless legs Head ache Injury of head and neck Loss of consciousness Seizures History of ulceration Heartburn Chewing tobacco nicotine dependence COPD (chronic obstructive pulmonary disease) CPAP (continuous positive airway pressure) dependence Cardiology follow-up encounter History of umbilical hernia Diarrhea Asthma-COPD overlap syndrome Polyneuropathy Recurrent syncope Essential (primary) hypertension Chronic alcohol dependence, continuous BMI 27.0-27.9,adult NUHA (obstructive sleep apnea) Tobacco use HLD (hyperlipidemia) Thrombocytopenia Elevated LFTs Alcohol withdrawal Seizure Hypokalemia Scalp laceration Electrolyte abnormality Hyponatremia Home Medications ?Medication ?Instructions ?Recorded ?Last Taken ?Type cetirizine 10 mg tablet 10 mg PO DAILY allergies 07/09/20 11/19/20 History potassium chloride 20 mEq oral 20 meq PO DAILY supplement 11/05/20 11/19/20 History packet sodium bicarbonate 325 mg tablet 325 mg PO BID stomach 11/05/20 11/19/20 History multivit,Ca,min-iron 8 mg-folic 1 tab PO DAILY supplement 11/20/20 11/19/20 History acid 200 mcg-lycopene 600 mcg tablet (Centrum Men) lisinopril 20 tab PO 06/27/23 Unknown History mg-hydrochlorothiazide 25 mg tablet rosuvastatin 5 mg tablet 5 mg PO DAILY 06/27/23 Unknown History Allergy/AdvReac Type Severity Reaction Status Date / Time Environmental Allergies: Allergy Mild runny nose Verified 08/24/25 13:33 Uncoded Family History Mother Asthma Surgical History Hx of colonoscopy Hx of right inguinal hernia repair Hx of left inguinal hernia repair History of loop recorder (01/07/21) History of hernia repair Social History Smoking Status: Current every day smoker tobacco type: smokeless tobacco Smokeless tobacco user: chewing tobacco and snuff alcohol intake: current alcohol intake frequency: 3 or more drinks per day Alcohol type: beer and wine ROS ROS ED ROS Narrative Requesting detox from alcohol Review of Systems ROS Unobtainable: other Constitutional Constitutional ED: Reports lethargy; Denies chills, fever(s), sweats or weight loss Eyes Eyes: Denies blurry vision, change in vision or diplopia ENT ENT ED: Denies rhinorrhea or sore throat Cardiovascular Cardiovascular: Denies chest pain, orthopnea or racing heartbeat Respiratory/Chest Respiratory/Chest: Denies cough, dyspnea, dyspnea on exertion, orthopnea or sputum Gastrointestinal Gastrointestinal: Denies abdominal pain, diarrhea, nausea or vomiting Genitourinary Genitourinary ED: Denies dysuria, hematuria or urinary frequency Musculoskeletal Musculoskeletal: Denies arthralgias, back pain, myalgias or neck pain Integumentary Denies abscess, Abrasions or rash Neurologic Neurologic: Reports other Details: Mild fine tremor at rest. ; Denies headache(s) or weakness Psychiatric Psychiatric: Denies anxiety, depression or suicidal thoughts Endocrine Endocrinology: Denies polydipsia, polyphagia or polyuria Hematologic/Lymphatic Hematologic/Lymphatic: Denies easy bleeding, easy bruising or lymphadenopathy Allergic/Immunologic Allergic/Immunologic ED: Denies mouth swelling, tongue swelling or urticaria EXAM Physical Exam Const Vital Signs: 08/24/25 13:31 Temperature 97.7 F L Temperature Source Oral Pulse Rate 81 Respiratory Rate 16 Blood Pressure 153/96 H Blood Pressure Mean 115 Pulse Ox 96 Oxygen Delivery Method Room Air MDM MDM MDM Narrative Medical decision making narrative: Patient presents to the emergency department with history of alcohol abuse requesting detox from alcohol. Clinically looks well. IV line established. CBC with differential obtained for white count of 4.4 with hemoglobin 14.3 and platelet count of 100. LFTs pending and urine tox cream and alcohol level pending. Will discuss with hospitalist to evaluate for admission. I did give patient a milligram of Ativan IV to help with anxiety and tremor Lab Data Attestation: I reviewed the patient's lab results. Labs: Laboratory Results - last 24 hr 08/24/25 14:45 WBC 4.4 RBC 4.57 L Hgb 14.3 Hct 40.5 MCV 88.6 MCH 31.3 MCHC 35.3 RDW Std Deviation 37.2 RDW Coeff of Sheryl 11.8 Plt Count 100 L MPV 10.4 Immature Gran % (Auto) 0.000 Neut % (Auto) 80.3 H Lymph % (Auto) 12.2 L Tate % (Auto) 6.1 Eos % (Auto) 0.5 Baso % (Auto) 0.9 Absolute Neuts (auto) 3.6 Absolute Lymphs (auto) 0.54 L Nucleated RBC % 0 Discharge Plan Dx/Rx/DC Orders Clinical Impression: Alcohol intoxication, Alcohol withdrawal Disposition Disposition: Acute Care [facility]
[2025-08-24 14:56] LABS: Hematocrit 40.5 % (40-54); Hemoglobin 14.3 g/dL (13.0-16.5); Immature Granulocytes Count 0.000 X10^3/uL (0.0-0.0); Mean Corp Hgb Conc 35.3 g/dL (32-36); Mean Corpuscular Volume 88.6 fL (80-94); Mean Platelet Vol. 10.4 fl (6.2-12.0); NRBC Flagged by Analyzer 0 % (0-5); POSITIVE DIFFERENTIAL YES; Platelet Count 100 K/mm3 (150-450); RBC Distribution Width CV 11.8 % (11.6-14.6); RBC Distribution Width SD 37.2 fl (35.1-43.9); Red Blood Count 4.57 M/mm3 (4.6-6.2); White Blood Count 4.4 K/mm3 (4.4-11.0)
--- OUTSIDE RECORDS SUMMARY | 2025-08-24 15:02 | XMS RPT_ITS | CCD ---
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 Geeta Chavez Primary Care Provider Dr. Macario Mendoza Attending Provider [phone] Macario Mendoza Referring Provider [phone] Geeta Chavez Referring Provider [phone] Kortney Reyes Attending Provider Unavailable DOMINIC MORTON DO Primary Care Physician [phone] GREGORY RIOS MD Consulting Unavailable [facility] HANDLEY[facility] Primary Care Unavailable GILLES HARRINGTON, DR RICHARD Attending Unavailab le PRAVEEN DO[facility] Primary Care Unavailable KASSIDY HARRINGTON FACP, JAMILA Moya Attending Unavail able PRAVEEN HANDLEY DOMINIC Primary Care Unavailable KASSIDY HARRINGTON FACP, JAMILA Moya Consulting Unavail able KASSIDY HARRINGTON FACP, JAMILA Moya Attending Unavail yoan RIOS MD, GREGORY Admitting Unavailable DR GEETA CHAVEZ MD Consulting Unavailable MIRA HARRINGTON, SHARLA Consulting Unavailable JUAN NEW MD, CLAUDIA Consulting Unavailable GABRIEL HARRINGTON, GREGORY Consulting Unavailable Geeta Chavez Primary Care Unavailable Macario Mendoza Referring Unavailable Macario Mendoza Attending Unavailable Allergies Allergy Classification Reported Allergen(s) Allergy Type Date of Onset Reaction(s) Facility (2 sources) Environmental Allergies: Uncoded; Translations: [Environmental Allergies: Uncoded] Allergy to substance 4 runny nose [facility] Medications Current Medications Medication Drug Class(es) Dates Sig (Normalized) Sig (Original) cetirizine hydrochloride 10 mg oral tablet (5 sources) Histamine-1 Receptor Antagonist Start: 07-09-2020 take 1 dose by mouth once daily cetirizine Dose : 10 mg =, Oral, qDay, 0 Refill(s) Start Date: 05/11/24 Status: Ordered hydroCHLOROthiazide 25 mg / lisinopril 20 mg oral tablet (2 sources) Thiazide Diuretic, Angiotensin Converting Enzyme Inhibitor Start: 06-27-2023 Lisinopril-Hydr ochlorothiazide 20-25 mg tablet Active {tbl} PO June 27, 2023 12:00am Start: 11-15-2019 take 1 tablet by pato th once daily hydrochlorothiazide-lisinopril 25 mg-20 mg oral tablet Dose = 1 tab(s), Oral, Daily, # 30 tab(s), 0 Refill(s) Start Date: 11/15/19 Status: Ordered lisinopril 20 mg oral tablet (5 sources) Angiotensin Converting Enzyme Inhibitor Start: 05-12-2024 lisinopril 20 mg ora l tablet Dose : 20 mg = 1 tab(s), Oral, qDay, # 30 tab(s), 0 Refill(s), Pharmacy: [facility]/pharmacy #[id number], 180.3, cm, 05/10/24 22:59:00 EDT, Height, kg, 05/10/24 22:59:00 EDT, Dosing Weight Start Date: 05/12/24 Status: Ordered Start: 07-09-2020 End: 11-05-2020 take 1 tablet by mouth once daily Lisinopril 20 MG tablet Discontinued 20 mg PO DAILY July 09, 2020 1:00am November 05, 2020 11:56am lysine 1000 mg oral tablet (1 source) Start: 11-15-2019 lysine 1000 mg oral tablet Dose : 1,000 mg = 1 tab(s), Oral, Daily, # 60 tab(s), 0 Refill(s) Start Date: 11/15/19 Status: Ordered Multivitamin preparation (3 sources) Start: 03-08-2019 take 1 tablet by mouth once daily Multivitamin Dose = 1 tab(s), Oral, Daily Start Date: 03/08/19 Status: Ordered Mv,Ca,Tpf-Iloy-Yx-Lycope ne (Centrum Men) 8 mg iron- 200 mcg-600 mcg tablet (3 sources) Start: 11-20-2020 take 8 tablets by mouth once daily Mv,Ca,Any-Rsbd-Xm-Lycop sim (Centrum Men) 8 mg iron- 200 mcg-600 mcg tablet Active 1 {tbl} PO DAILY November 20, 2020 12:00am Start: 11-20-2020 Mv,Ca,Min-Iron -Fa-Lycopene (Centrum Men) 8 mg iron- 200 mcg- 600 mcg tablet Active 1 TABLET PO DAILY November 20, 2020 12:00am naltrexone hydrochloride 50 mg oral tablet (1 source) Opioid Antagonist Start: 11-15-2019 naltrexone 5 0 mg oral tablet Dose : 50 mg = 1 tab(s), Oral, Daily, # 30 tab(s), 0 Refill(s) Start Date: 11/15/19 Status: Ordered potassium chloride 20 meq powder for oral solution (4 sources) Start: 11-05-2020 take 20 mEq by mouth once daily Potassium Chloride 20 mEq packet Active 20 meq PO DAILY November 05, 2020 1:00am Start: 11-15-2019 potassium chlo ride 99 mg oral tablet Dose : 99 mg = 1 tab(s), Oral, qDay, Take with food, # 100 tab(s), 0 Refill(s) Start Date: 11/15/19 Status: Ordered rosuvastatin calcium 5 mg oral tablet (7 sources) HMG-CoA Reductase Inhibitor Start: 06-27-2023 take 1 tablet by mouth once daily Rosuvastatin 5 mg tablet Active 5 mg PO DAILY June 27, 2023 12:00am Start: 03-11-2019 End: 10-09-2021 take 1 tablet by mouth at bedtime Rosuvastatin 40 MG tablet Discontinued 40 mg PO AT BEDTIME March 11, 2019 12:00am October 09, 2021 12:20pm sodium bicarbonate 325 mg oral tablet (3 sources) Start: 11-05-2020 take 1 tablet by mouth twice daily Sodium Bicarbonate 325 mg tablet Active 325 mg PO TWICE A DAY November 05, 2020 1:00am Vitamin C 500 mg oral tablet (1 source) Start: 03-08-2019 Vitamin C 500 mg oral tablet Dose : 500 mg = 1 tab(s), Oral, qDay Start Date: 03/08/19 Status: Ordered Zinc (1 source) Start: 11-15-2019 take 1 dose by mouth once daily Zinc Dose : 140 mg =, Oral, qDay, 0 Refill(s) Start Date: 11/15/19 Status: Ordered Completed/Discontinued Medications Medication Drug Class(es) Dates Sig (Normalized) Sig (Original) acyclovir 800 mg oral tablet (3 sources) Herpesvirus Nucleoside Analog DNA Polymerase Inhibitor, Herpes Simplex Virus Nucleoside Analog DNA Polymerase Inhibitor, Herpes Zoster Virus Nucleoside Analog DNA Polymerase Inhibitor Start: 10-06-2021 End: 06-27-2023 take 1 tablet by mouth twice daily as needed Acyclovir 800 mg Tablet Discontinued 800 mg PO TWICE A DAY as needed for Rash October 06, 2021 1:00am June 27, 2023 9:30am amLODIPine 5 mg oral tablet (6 sources) Dihydropyridine Calcium Channel Vianney Start: 03-11-2019 End: 06-27-2023 take 1 tablet by mouth once daily Amlodipine 5 MG tablet Discontinued 5 mg PO DAILY March 11, 2019 12:00am June 27, 2023 9:31am Cholecalciferol (3 sources) Vitamin D Start: 07-09-2020 End: 11-05-2020 Cholecalciferol (Vitamin D3) (Vitamin D3) 25 MCG tablet Discontinued 1 {tbl} PO DAILY July 09, 2020 1:00am November 05, 2020 11:58am Start: 07-09-2020 End: 11-05-2020 take 1 tablet by mouth once daily Cholecalciferol (Vitamin D3) (Vitamin D3) 25 MCG tablet Discontinued 1 TABLET PO DAILY July 09, 2020 1:00am November 05, 2020 11:58am citalopram 40 mg oral tablet (10 sources) Serotonin Reuptake Inhibitor Start: 10-06-2021 End: 06-27-2023 take 1 tablet by mouth once daily Citalopram 40 mg tablet Discontinued 40 mg PO DAILY October 06, 2021 1:00am June 27, 2023 9:31am Start: 11-20-2020 End: 11-20-2020 Citalopram 40 mg tablet Disc ontinued 20 mg PO DAILY November 20, 2020 9:49am November 20, 2020 10:48am Start: 11-20-2020 End: 11-20-2020 take 20 mg by mouth once daily Citalopram Discontinued 20 MG PO DAILY November 20, 2020 9:49am November 20, 2020 10:48am Start: 07-09-2020 End: 11-20-2020 take 1 tablet by mouth once daily Citalopram 40 MG tablet Discontinued 40 mg PO DAILY July 09, 2020 1:00am November 20, 2020 10:09am Start: 11-15-2019 citalopram 20 mg oral tablet Dose : 20 mg = 1 tab(s), Oral, qDay, # 30 tab(s), 0 Refill(s) Start Date: 11/15/19 Status: Ordered Fish Oil-Dha-Epa (2 sources) Start: 07-09-2020 End: 11-20-2020 Fish Oil-Dha-Epa Discontinued 1 EACH PO DAILY July 09, 2020 1:00am November 20, 2020 10:09am Fish Oil-Dha-Epa 1 EACH capsule (1 source) Start: 07-09-2020 End: 11-20-2020 take 1 capsule by mouth once daily Fish Oil-Dha-Epa 1 EACH capsule Discontinued 1 NMA PO DAILY July 09, 2020 1:00am November 20, 2020 10:09am FLUoxetine 10 mg oral tablet (3 sources) Serotonin Reuptake Inhibitor Start: 11-05-2020 End: 12-22-2020 take 1 tablet by mouth twice daily Fluoxetine 10 mg tablet Discontinued 10 mg PO TWICE A DAY November 05, 2020 1:00am December 22, 2020 2:32pm 60 actuat fluticasone propionate 0.05 mg/actuat dry powder inhaler (3 sources) Corticosteroid Start: 03-11-2019 End: 11-05-2020 take 50 ug by inhalation once daily Fluticasone Propionate 50 MCG blister with device Discontinued 50 ug IH DAILY March 11, 2019 12:00am November 05, 2020 11:59am hydroCHLOROthiazide 25 mg oral tablet (3 sources) Thiazide Diuretic Start: 03-11-2019 End: 11-05-2020 take 1 tablet by mouth once daily Hydrochlorothiazide 25 MG tablet Discontinued 25 mg PO DAILY March 11, 2019 12:00am November 05, 2020 11:59am hydrOXYzine hydrochloride 10 mg oral tablet (4 sources) Antihistamine Start: 07-09-2020 End: 11-05-2020 Hydroxyzine Hcl 10 MG tablet Discontinued 25 mg PO DAILY July 09, 2020 1:00am November 05, 2020 11:58am Start: 07-09-2020 End: 11-05-2020 take 25 mg by mouth once daily Hydroxyzine Hcl Discont inued 25 MG PO DAILY July 09, 2020 1:00am November 05, 2020 11:58am Start: 03-08-2019 hydrOXYzine hy drochloride 25 mg oral tablet Dose : 25 mg = 1 tab(s), Oral, Daily, # 0 tab(s), 0 Refill(s) Start Date: 03/08/19 Status: Ordered lactobacillus acidophilus [id number] unt oral capsule (3 sources) Start: 10-06-2021 End: 06-27-2023 take 10 capsules by mouth once daily Lactobacillus Acidophilus (Probiotic) 10 billion cell Capsule Discontinued 60037 NMA PO DAILY October 06, 2021 1:00am June 27, 2023 9:31am melatonin 3 mg oral tablet (3 sources) Start: 10-06-2021 End: 06-27-2023 take 1 tablet by mouth at bedtime Melatonin 3 mg tablet Discontinued 3 mg PO AT BEDTIME October 06, 2021 1:00am June 27, 2023 9:32am omeprazole 40 mg delayed release oral capsule (3 sources) Proton Pump Inhibitor Start: 06-23-2021 End: 07-19-2021 take 1 capsule by mouth once daily Omeprazole 40 mg capsule,delayed release(DR/EC) Discontinued 40 mg PO DAILY June 23, 2021 12:00am July 19, 2021 10:01am vitamin b12 1 mg oral capsule (4 sources) Vitamin B12 Start: 07-09-2020 End: 11-20-2020 take 1 capsule by mouth once daily Cyanocobalamin (Vitamin B-12) 1,000 MCG capsule Discontinued 1000 ug PO DAILY July 09, 2020 1:00am November 20, 2020 9:50am Start: 10-23-2019 take 1 dose by mouth once brett y Vitamin B12 Dose : 1,000 mcg =, Oral, qDay, 0 Refill(s) Start Date: 10/23/19 Status: Ordered Problems Active Problems Problem Classification Problem Date Documented Date Episodic/Chronic Acute and unspecified renal failure (1 source) Acute renal failure syndrome; Translations: [Acute kidney failure, unspecified] Onset: 05-10-2024 Episodic Alcohol-related disorders (4 sources) Alcohol withdrawal syndrome; Translations: [Alcohol withdrawal syndrome] 11-20-2020 Chronic Chronic obstructive pulmonary disease and bronchiectasis (3 sources) Asthma-chronic obstructive pulmonary disease overlap syndrome; Translations: [Chronic obstructive pulmonary disease, unspecified] 11-12-2021 Chronic Disorders of lipid metabolism (4 sources) Hyperlipidemia; Translations: [Hyperlipidemia, unspecified] 04-27-2022 Chronic Essential hypertension (4 sources) Essential hypertension; Translations: [Essential (primary) hypertension] 04-27-2022 Chronic Fluid and electrolyte disorders (10 sources) Hyponatremia; Translations: [Hypo-osmolality and hyponatremia] Onset: 05-10-2024 10-17-2021 Episodic Osteoarthritis (1 source) Osteoarthritis of left knee joint; Translations: [Unilateral primary osteoarthritis, left knee] 09-09-2023 Chronic Other liver diseases (3 sources) Enzyme level - finding; Translations: [Elevated transaminase measurement] 10-17-2021 Episodic Other nervous system disorders (1 source) Ataxia; Translations: [Ataxia, unspecified] Episodic Other non-traumatic joint disorders (1 source) Pain in left knee; Translations: [Left knee pain] 06-27-2023 Episodic Other nutritional; endocrine; and metabolic disorders (1 source) Hypomagnesemia; Translations: [Hypomagnesemia] Chronic Other skin disorders (3 sources) Cyst of face 10-23-2019 Episodic Residual codes; unclassified (3 sources) Obstructive sleep apnea syndrome; Translations: [Obstructive sleep apnea (adult) (pediatric)] 11-12-2021 Chronic Comment on above: Noncompliant Residual codes; unclassified (3 sources) Sleep apnea 10-23-2019 Chronic Residual codes; unclassified (3 sources) Tobacco user; Translations: [Tobacco use] 04-27-2022 Episodic Residual codes; unclassified (3 sources) Tobacco use and exposure - finding; Translations: [Tobacco use] 10-17-2021 Episodic Syncope (5 sources) Syncope and collapse; Translations: [Syncope and collapse] Episodic Past or Other Problems Problem Classification Problem Date Documented Date Episodic/Chronic Residual codes; unclassified (2 sources) Other specified postprocedural states; Translations: [Personal history of surgery to other organs] Onset: 01-07-2021 Episodic Unclassified (3 sources) Right inguinal hematoma 04-27-2022 Results Test Name Value Interpretation Reference Range Facility .GFRon 05-14-2024 GFR 67 ml/min/1.73sqm Normal [facility] Comment on above: Result Comment: GFR Population mean for , Non- Americans Ages 20-29 = 116 mL/min/1.73 sq.m. Ages 30-39 = 107 mL/min/1.73 sq.m. Ages 40-49 = 99 mL/min/1.73 sq.m. Ages 50-59 = 93 mL/min/1.73 sq.m. Ages 60-69 = 85 mL/min/1.73 sq.m. Ages 70+ = 75 mL/min/1.73 sq.m. Chronic Kidney Disease: Less than 60 mL/min/1.73 square meters End Stage Renal Disease: Less than 15 mL/min/1.73 square meters Performed By: #### Jemal CLARKE, BMP #### [address] [address] GFR Non- 55 ml/min/1.73sqm Normal [facility] Comment on above: Result Comment: GFR Population mean for , Non- Americans Ages 20-29 = 116 mL/min/1.73 sq.m. Ages 30-39 = 107 mL/min/1.73 sq.m. Ages 40-49 = 99 mL/min/1.73 sq.m. Ages 50-59 = 93 mL/min/1.73 sq.m. Ages 60-69 = 85 mL/min/1.73 sq.m. Ages 70+ = 75 mL/min/1.73 sq.m. Chronic Kidney Disease: Less than 60 mL/min/1.73 square meters End Stage Renal Disease: Less than 15 mL/min/1.73 square meters Performed By: #### Jemal CLARKE, BMP #### [address] [address] BMPon 05-14-2024 BUN/Creatinine Ratio 8 ratio Normal 7-27 [facility] Comment on above: Performed By: #### G , BMP #### [address] [address] Calcium [Mass/Vol] 10.0 mg/dL Normal 8.4-10.2 [facility] Comment on above: Performed By: #### G , BMP #### [address] [address] Chloride [Moles/Vol] 91 mmol/L Low 98-107 [facility] Comment on above: Performed By: #### G , BMP #### [address] [address] CO2 [Moles/Vol] 32 mmol/L High 22-29 [facility] Comment on above: Performed By: #### G , BMP #### [address] [address] Creatinine [Mass/Vol] 1.33 mg/dL High 0.70-1.30 [facility] Comment on above: Result Comment: Test ing performed on Siemens Dimension EXL analyzer using a modified kinetic Tracey technique. Performed By: #### Jemal CLARKE, BMP #### [address] [address] Electrolyte Balance 7.0 mEq/L Normal 4.0-15.0 [facility] Comment on above: Performed By: #### Jemal CLARKE, BMP #### [address] [address] Glucose [Mass/Vol] 151 mg/dL High 70-105 [facility] Comment on above: Performed By: #### Jemal CLARKE, BMP #### [address] [address] Potassium [Moles/Vol] 3.9 mmol/L Normal 3.5-5.1 [facility] Comment on above: Performed By: #### Jemal CLARKE, BMP #### [address] [address] Sodium [Moles/Vol] 130 mmol/L Low 136-145 [facility] Comment on above: Performed By: #### Jemal CLARKE, BMP #### [address] [address] Urea nitrogen [Mass/Vol] 11 mg/dL Normal 7-18 [facility] Comment on above: Performed By: #### Jemal CLARKE, BMP #### [address] [address] LABORATORYOrdered By: SYSTEM SYSTEM on 05-14-2024 Calcium [Mass/Vol] 10.0 mg/dL Normal 8.4 - 10. 2 mg/dL AO ADM SS Chloride [Moles/Vol] 91 mmol/L Low 98 - 10 7 mmol/L AO ADM SS CO2 [Moles/Vol] 32 mmol/L High 22 - 29 mmol/L AO ADM SS Creatinine [Mass/Vol] 1.33 mg/dL High 0.70 - 1.30 mg/dL AO ADM SS Comment on above: Interpretive Data: T esting performed on Siemens Dimension EXL analyzer using a modified kinetic Tracey technique. Electrolyte Balance 7.0 mEq/L Normal 4.0 - 15 .0 mEq/L AO ADM SS GFR/1.73 sq M.predicted among blacks MDRD (S/P/Bld) [Vol rate/Area] 67 ml/min/1.73sqm Invalid Interpretation Code AO Chemistry S Comment on above: Interpretive Data: GFR Population mean for , Non- Americans Ages 20-29 = 116 mL/min/1.73 sq.m. Ages 30-39 = 107 mL/min/1.73 sq.m. Ages 40-49 = 99 mL/min/1.73 sq.m. Ages 50-59 = 93 mL/min/1.73 sq.m. Ages 60-69 = 85 mL/min/1.73 sq.m. Ages 70+ = 75 mL/min/1.73 sq.m. Chronic Kidney Disease: Less than 60 mL/min/1.73 square meters End Stage Renal Disease: Less than 15 mL/min/1.73 square meters GFR/1.73 sq M.predicted among non-blacks MDRD (S/P/Bld) [Vol rate/Area] 55 ml/min/1.73sqm Invalid Interpretation Code AO Chemistry S Comment on above: Interpretive Data: GFR Population mean for , Non- Americans Ages 20-29 = 116 mL/min/1.73 sq.m. Ages 30-39 = 107 mL/min/1.73 sq.m. Ages 40-49 = 99 mL/min/1.73 sq.m. Ages 50-59 = 93 mL/min/1.73 sq.m. Ages 60-69 = 85 mL/min/1.73 sq.m. Ages 70+ = 75 mL/min/1.73 sq.m. Chronic Kidney Disease: Less than 60 mL/min/1.73 square meters End Stage Renal Disease: Less than 15 mL/min/1.73 square meters Glucose [Mass/Vol] 151 mg/dL High 70 - 105 mg/dL AO ADM SS Potassium [Moles/Vol] 3.9 mmol/L Normal 3.5 - 5.1 mmol/L AO ADM SS Sodium [Moles/Vol] 130 mmol/L Low 136 - 145 mmol/L AO ADM SS Urea nitrogen [Mass/Vol] 11 mg/dL Normal 7 - 18 mg/dL AO ADM SS Urea nitrogen/Creatinine [Mass ratio] 8 ratio Normal 7 - 27 ratio AO ADM SS .GFRon 05-12-2024 GFR Non- >[address] [facility] Comment on above: Result Comment: GFR Population mean for , Non- Americans Ages 20-29 = 116 mL/min/1.73 sq.m. Ages 30-39 = 107 mL/min/1.73 sq.m. Ages 40-49 = 99 mL/min/1.73 sq.m. Ages 50-59 = 93 mL/min/1.73 sq.m. Ages 60-69 = 85 mL/min/1.73 sq.m. Ages 70+ = 75 mL/min/1.73 sq.m. Chronic Kidney Disease: Less than 60 mL/min/1.73 square meters End Stage Renal Disease: Less than 15 mL/min/1.73 square meters Performed By: #### B MP, GFR #### [place] [address] GFR >60 Normal [facility] Comment on above: Result Comment: GFR Population mean for , Non- Americans Ages 20-29 = 116 mL/min/1.73 sq.m. Ages 30-39 = 107 mL/min/1.73 sq.m. Ages 40-49 = 99 mL/min/1.73 sq.m. Ages 50-59 = 93 mL/min/1.73 sq.m. Ages 60-69 = 85 mL/min/1.73 sq.m. Ages 70+ = 75 mL/min/1.73 sq.m. Chronic Kidney Disease: Less than 60 mL/min/1.73 square meters End Stage Renal Disease: Less than 15 mL/min/1.73 square meters Performed By: #### B MP, GFR #### [address] [address] BMPon 05-12-2024 BUN/Creatinine Ratio 12.2 ratio Normal 10.0-22.0 [facility] Comment on above: Performed By: #### B MP, GFR #### [address] [address] Calcium [Mass/Vol] 9.8 mg/dL Normal 8.7-10.4 [facility] Comment on above: Performed By: #### B MP, GFR #### [address] [address] Chloride [Moles/Vol] 86 mmol/L Low 98-110 [facility] Comment on above: Performed By: #### B MP, GFR #### [address] [address] CO2 [Moles/Vol] 37 mmol/L High 22-32 [facility] Comment on above: Performed By: #### B MP, GFR #### [address] [address] Creatinine [Mass/Vol] 1.23 mg/dL Normal 0.60-1.40 [facility] Comment on above: Result Comment: Test ing performed on Be my eyes analyzer using enzymatic creatinine methodology. Performed By: #### B MP, GFR #### [address] [address] Electrolyte Balance 4.0 mEq/L Normal 4.0-15.0 [facility] Comment on above: Performed By: #### B MP, GFR #### [address] [address] Glucose [Mass/Vol] 97 mg/dL Normal 70-110 [facility] Comment on above: Performed By: #### B MP, GFR #### [address] [address] Potassium [Moles/Vol] 3.0 mmol/L Low 3.5-5.0 [facility] Comment on above: Performed By: #### B MP, GFR #### [facility] [address] [place] [address] Sodium [Moles/Vol] 127 mmol/L Low 136-145 [facility] Comment on above: Performed By: #### B MP, GFR #### [facility] [address] [place] [address] Urea nitrogen [Mass/Vol] 15.0 mg/dL Normal 8.0-22.0 [facility] Comment on above: Performed By: #### B MP, GFR #### [facility] [address] [place] [address] LABORATORYOrdered By: SYSTEM SYSTEM on 05-12-2024 Calcium [Mass/Vol] 9.8 mg/dL Normal 8.7 - 10. 4 mg/dL ADM SS Chloride [Moles/Vol] 86 mmol/L Low 98 - 11 0 mEq/L AH ADM SS CO2 [Moles/Vol] 37 mmol/L High 22 - 32 mEq/L AH ADM SS Creatinine [Mass/Vol] 1.23 mg/dL Normal 0.60 - 1.40 mg/dL ADM SS Comment on above: Interpretive Data: T esting performed on Be my eyes analyzer using enzymatic creatinine methodology. Electrolyte Balance 4.0 mEq/L Normal 4.0 - 15 .0 mEq/L AH ADM SS GFR/1.73 sq M.predicted among blacks MDRD (S/P/Bld) [Vol rate/Area] ml/min/1.73sqm Invalid Interpretation Code AH ADM SS Comment on above: Interpretive Data: GFR Population mean for , Non- Americans Ages 20-29 = 116 mL/min/1.73 sq.m. Ages 30-39 = 107 mL/min/1.73 sq.m. Ages 40-49 = 99 mL/min/1.73 sq.m. Ages 50-59 = 93 mL/min/1.73 sq.m. Ages 60-69 = 85 mL/min/1.73 sq.m. Ages 70+ = 75 mL/min/1.73 sq.m. Chronic Kidney Disease: Less than 60 mL/min/1.73 square meters End Stage Renal Disease: Less than 15 mL/min/1.73 square meters GFR/1.73 sq M.predicted among non-blacks MDRD (S/P/Bld) [Vol rate/Area] ml/min/1.73sqm Invalid Interpretation Code ADM SS Comment on above: Interpretive Data: GFR Population mean for , Non- Americans Ages 20-29 = 116 mL/min/1.73 sq.m. Ages 30-39 = 107 mL/min/1.73 sq.m. Ages 40-49 = 99 mL/min/1.73 sq.m. Ages 50-59 = 93 mL/min/1.73 sq.m. Ages 60-69 = 85 mL/min/1.73 sq.m. Ages 70+ = 75 mL/min/1.73 sq.m. Chronic Kidney Disease: Less than 60 mL/min/1.73 square meters End Stage Renal Disease: Less than 15 mL/min/1.73 square meters Glucose [Mass/Vol] 97 mg/dL Normal 70 - 110 mg/dL ADM SS Potassium [Moles/Vol] 3.0 mmol/L Low 3.5 - 5.0 mEq/L ADM SS Sodium [Moles/Vol] 127 mmol/L Low 136 - 145 mEq/L ADM SS Urea nitrogen [Mass/Vol] 15.0 mg/dL Normal 8.0 - 22.0 mg/dL ADM SS Urea nitrogen/Creatinine [Mass ratio] 12.2 ratio Normal 10.0 - 22.0 ratio ADM SS .Auto Diffon 05-11-2024 Basophil, Absolute 0.0 10 3/mcL Normal 0.0-0.2 [facility] Comment on above: Performed By: #### M DW, CBC, ADIFF, ANEU #### [address] [address] Basophils/100 WBC (Bld) 0.2 % Normal 0.0-2.5 [facility] Comment on above: Performed By: #### M DW, CBC, ADIFF, ANEU #### [address] [address] Eosinophil, Absolute 0.0 10 3/mcL Normal 0.0-0.4 [facility] Comment on above: Performed By: #### M DW, CBC, ADIFF, ANEU #### [address] [address] Eosinophils/100 WBC (Bld) 0.1 % Normal 0.0-7.0 [facility] Comment on above: Performed By: #### M DW, CBC, ADIFF, ANEU #### [address] [address] Lymphocyte, Absolute 0.4 10 3/mcL Low 0.8-3.9 [facility] Comment on above: Performed By: #### M DW, CBC, ADIFF, ANEU #### [address] [address] Lymphocytes/100 WBC (Bld) 14.4 % Normal 10.0-50.0 [facility] Comment on above: Performed By: #### M DW, CBC, ADIFF, ANEU #### [address] [address] Monocyte, Absolute 0.4 10 3/mcL Normal 0.2-1.0 [facility] Comment on above: Performed By: #### M DW, CBC, ADIFF, ANEU #### [address] [address] Monocytes/100 WBC (Bld) 12.3 % Normal 1.7-13.0 [facility] Comment on above: Performed By: #### M DW, CBC, ADIFF, ANEU #### [address] [address] Neutrophils/100 WBC (Bld) 73.0 % Normal 37.0-80.0 [facility] Comment on above: Performed By: #### M DW, CBC, ADIFF, ANEU #### [address] [address] Basophil, Absolute 0.0 10 3/mcL Normal 0.0-0.3 [facility] Comment on above: Performed By: #### B 12, OSMOS #### [facility] [address] [place] [id number] Basophils/100 WBC (Bld) 0.4 % Normal 0.0-2.5 [facility] Comment on above: Performed By: #### B 12, OSMOS #### [address] [address] Eosinophil, Absolute 0.0 10 3/mcL Normal 0.0-0.[address] [facility] Comment on above: Performed By: #### B 12, OSMOS #### [address] [address] Eosinophils/100 WBC (Bld) 0.1 % Normal 0.0-6.0 [facility] Comment on above: Performed By: #### B 12, OSMOS #### [address] [address] Lymphocyte, Absolute 0.5 10 3/mcL Low 0.9-4.[address] [facility] Comment on above: Performed By: #### B 12, TREVOR #### [address] [address] Lymphocytes/100 WBC (Bld) 14.9 % Low 20.0-40.0 [facility] Comment on above: Performed By: #### B 12, TREVOR #### [address] [address] Monocyte, Absolute 0.4 10 3/mcL Normal 0.1-1.4 [facility] Comment on above: Performed By: #### B 12, TREVOR #### [address] [address] Monocytes/100 WBC (Bld) 11.0 % Normal 2.0-13.0 [facility] Comment on above: Performed By: #### B 12, OSMOS #### [address] [address] Neutrophils/100 WBC (Bld) 73.6 % Normal 50.0-75.0 [facility] Comment on above: Performed By: #### B 12, TREVOR #### [address] [address] .GFRon 05-11-2024 GFR 60 ml/min/1.73sqm Normal [facility] Comment on above: Result Comment: GFR Population mean for , Non- Americans Ages 20-29 = 116 mL/min/1.73 sq.m. Ages 30-39 = 107 mL/min/1.73 sq.m. Ages 40-49 = 99 mL/min/1.73 sq.m. Ages 50-59 = 93 mL/min/1.73 sq.m. Ages 60-69 = 85 mL/min/1.73 sq.m. Ages 70+ = 75 mL/min/1.73 sq.m. Chronic Kidney Disease: Less than 60 mL/min/1.73 square meters End Stage Renal Disease: Less than 15 mL/min/1.73 square meters Performed By: #### B MP, GFR #### [address] [address] GFR Non- 50 ml/min/1.73sqm [facility] Comment on above: Result Comment: GFR Population mean for , Non- Americans Ages 20-29 = 116 mL/min/1.73 sq.m. Ages 30-39 = 107 mL/min/1.73 sq.m. Ages 40-49 = 99 mL/min/1.73 sq.m. Ages 50-59 = 93 mL/min/1.73 sq.m. Ages 60-69 = 85 mL/min/1.73 sq.m. Ages 70+ = 75 mL/min/1.73 sq.m. Chronic Kidney Disease: Less than 60 mL/min/1.73 square meters End Stage Renal Disease: Less than 15 mL/min/1.73 square meters Performed By: #### B MP, GFR #### [address] [address] GFR 56 ml/min/1.73sqm [facility] Comment on above: Result Comment: GFR Population mean for , Non- Americans Ages 20-29 = 116 mL/min/1.73 sq.m. Ages 30-39 = 107 mL/min/1.73 sq.m. Ages 40-49 = 99 mL/min/1.73 sq.m. Ages 50-59 = 93 mL/min/1.73 sq.m. Ages 60-69 = 85 mL/min/1.73 sq.m. Ages 70+ = 75 mL/min/1.73 sq.m. Chronic Kidney Disease: Less than 60 mL/min/1.73 square meters End Stage Renal Disease: Less than 15 mL/min/1.73 square meters Performed By: #### B 12, OSMOS #### [address] [address] GFR Non- 46 ml/min/1.73sqm [facility] Comment on above: Result Comment: GFR Population mean for , Non- Americans Ages 20-29 = 116 mL/min/1.73 sq.m. Ages 30-39 = 107 mL/min/1.73 sq.m. Ages 40-49 = 99 mL/min/1.73 sq.m. Ages 50-59 = 93 mL/min/1.73 sq.m. Ages 60-69 = 85 mL/min/1.73 sq.m. Ages 70+ = 75 mL/min/1.73 sq.m. Chronic Kidney Disease: Less than 60 mL/min/1.73 square meters End Stage Renal Disease: Less than 15 mL/min/1.73 square meters Performed By: #### B 12, TODOS #### [address] [address] GFR 52 ml/min/1.73sqm [facility] Comment on above: Result Comment: GFR Population mean for , Non- Americans Ages 20-29 = 116 mL/min/1.73 sq.m. Ages 30-39 = 107 mL/min/1.73 sq.m. Ages 40-49 = 99 mL/min/1.73 sq.m. Ages 50-59 = 93 mL/min/1.73 sq.m. Ages 60-69 = 85 mL/min/1.73 sq.m. Ages 70+ = 75 mL/min/1.73 sq.m. Chronic Kidney Disease: Less than 60 mL/min/1.73 square meters End Stage Renal Disease: Less than 15 mL/min/1.73 square meters Performed By: #### G FR, BMP #### [address] [address] GFR Non- 43 ml/min/1.73sqm [facility] Comment on above: Result Comment: GFR Population mean for , Non- Americans Ages 20-29 = 116 mL/min/1.73 sq.m. Ages 30-39 = 107 mL/min/1.73 sq.m. Ages 40-49 = 99 mL/min/1.73 sq.m. Ages 50-59 = 93 mL/min/1.73 sq.m. Ages 60-69 = 85 mL/min/1.73 sq.m. Ages 70+ = 75 mL/min/1.73 sq.m. Chronic Kidney Disease: Less than 60 mL/min/1.73 square meters End Stage Renal Disease: Less than 15 mL/min/1.73 square meters Performed By: #### G FR, BMP #### [address] [address] GFR Non- 54 ml/min/1.73sqm [facility] Comment on above: Result Comment: GFR Population mean for , Non- Americans Ages 20-29 = 116 mL/min/1.73 sq.m. Ages 30-39 = 107 mL/min/1.73 sq.m. Ages 40-49 = 99 mL/min/1.73 sq.m. Ages 50-59 = 93 mL/min/1.73 sq.m. Ages 60-69 = 85 mL/min/1.73 sq.m. Ages 70+ = 75 mL/min/1.73 sq.m. Chronic Kidney Disease: Less than 60 mL/min/1.73 square meters End Stage Renal Disease: Less than 15 mL/min/1.73 square meters Performed By: #### G FR, BMP #### [address] [address] GFR >60 [facility] Comment on above: Result Comment: GFR Population mean for , Non- Americans Ages 20-29 = 116 mL/min/1.73 sq.m. Ages 30-39 = 107 mL/min/1.73 sq.m. Ages 40-49 = 99 mL/min/1.73 sq.m. Ages 50-59 = 93 mL/min/1.73 sq.m. Ages 60-69 = 85 mL/min/1.73 sq.m. Ages 70+ = 75 mL/min/1.73 sq.m. Chronic Kidney Disease: Less than 60 mL/min/1.73 square meters End Stage Renal Disease: Less than 15 mL/min/1.73 square meters Performed By: #### G FR, BMP #### [address] [address] GFR 63 ml/min/1.73sqm [facility] Comment on above: Result Comment: GFR Population mean for , Non- Americans Ages 20-29 = 116 mL/min/1.73 sq.m. Ages 30-39 = 107 mL/min/1.73 sq.m. Ages 40-49 = 99 mL/min/1.73 sq.m. Ages 50-59 = 93 mL/min/1.73 sq.m. Ages 60-69 = 85 mL/min/1.73 sq.m. Ages 70+ = 75 mL/min/1.73 sq.m. Chronic Kidney Disease: Less than 60 mL/min/1.73 square meters End Stage Renal Disease: Less than 15 mL/min/1.73 square meters Performed By: #### B MP, MG, GFR #### [address] [address] GFR Non- 52 ml/min/1.73sqm [facility] Comment on above: Result Comment: GFR Population mean for , Non- Americans Ages 20-29 = 116 mL/min/1.73 sq.m. Ages 30-39 = 107 mL/min/1.73 sq.m. Ages 40-49 = 99 mL/min/1.73 sq.m. Ages 50-59 = 93 mL/min/1.73 sq.m. Ages 60-69 = 85 mL/min/1.73 sq.m. Ages 70+ = 75 mL/min/1.73 sq.m. Chronic Kidney Disease: Less than 60 mL/min/1.73 square meters End Stage Renal Disease: Less than 15 mL/min/1.73 square meters Performed By: #### B MP, MG, GFR #### [place] [address] [place], [place] [address] GFR >60 Normal [facility] Comment on above: Result Comment: GFR Population mean for , Non- Americans Ages 20-29 = 116 mL/min/1.73 sq.m. Ages 30-39 = 107 mL/min/1.73 sq.m. Ages 40-49 = 99 mL/min/1.73 sq.m. Ages 50-59 = 93 mL/min/1.73 sq.m. Ages 60-69 = 85 mL/min/1.73 sq.m. Ages 70+ = 75 mL/min/1.73 sq.m. Chronic Kidney Disease: Less than 60 mL/min/1.73 square meters End Stage Renal Disease: Less than 15 mL/min/1.73 square meters Performed By: #### B 12, OSMOS #### [address] [address] GFR Non- 58 ml/min/1.73sqm Normal [facility] Comment on above: Result Comment: GFR Population mean for , Non- Americans Ages 20-29 = 116 mL/min/1.73 sq.m. Ages 30-39 = 107 mL/min/1.73 sq.m. Ages 40-49 = 99 mL/min/1.73 sq.m. Ages 50-59 = 93 mL/min/1.73 sq.m. Ages 60-69 = 85 mL/min/1.73 sq.m. Ages 70+ = 75 mL/min/1.73 sq.m. Chronic Kidney Disease: Less than 60 mL/min/1.73 square meters End Stage Renal Disease: Less than 15 mL/min/1.73 square meters Performed By: #### B 12, OSMOS #### [address] [address] .MDWon 05-11-2024 Monocyte Distribution Width 18.58 Normal 0.00-20.00 [facility] Comment on above: Result Comment: For ED adult patients suspected of sepsis, MDW<=20.0 does not rule out sepsis or risk of sepsis Performed By: #### M DW, CBC, ADIFF, ANEU #### [facility] [address] [place], [place] [address] .NEUABSon 05-11-2024 Neutrophil, Absolute 2.1 10 3/mcL Low 2.9-6.2 [facility] Comment on above: Performed By: #### M DW, CBC, ADIFF, ANEU #### [facility] [address] [place], [place] [address] Neutrophil, Absolute 2.3 10 3/mcL Normal 2.3-8.[address] [facility] Comment on above: Performed By: #### B 12, OSMOS #### [address] [address] B12on 05-11-2024 Cobalamin (Vitamin B12) [Mass/Vol] 1813 pg/mL High 211-911 [facility] Comment on above: Performed By: #### B 12, OSMOS #### [address] [address] BMPon 05-11-2024 Chloride [Moles/Vol] 80 mmol/L Low 98-110 [facility] Comment on above: Performed By: #### B MP, GFR #### [address] [address] Electrolyte Balance 5.0 mEq/L Normal 4.0-15.0 [facility] Comment on above: Performed By: #### B MP, GFR #### [address] [address] Potassium [Moles/Vol] 3.6 mmol/L Normal 3.5-5.0 [facility] Comment on above: Performed By: #### B MP, GFR #### [address] [address] Sodium [Moles/Vol] 122 mmol/L Low 136-145 [facility] Comment on above: Performed By: #### B MP, GFR #### [address] [address] BUN/Creatinine Ratio 9.6 ratio Low 10.0-22.0 [facility] Comment on above: Performed By: #### B MP, GFR #### [address] [address] Calcium [Mass/Vol] 9.8 mg/dL Normal 8.7-10.4 [facility] Comment on above: Performed By: #### B MP, GFR #### [address] [address] CO2 [Moles/Vol] 37 mmol/L High 2232 [facility] Comment on above: Performed By: #### B MP, GFR #### [address] [address] Creatinine [Mass/Vol] 1.46 mg/dL High 0.60-1.40 [facility] Comment on above: Result Comment: Test ing performed on Be my eyes analyzer using enzymatic creatinine methodology. Performed By: #### B MP, GFR #### [address] [address] Glucose [Mass/Vol] 96 mg/dL Normal 70-110 [facility] Comment on above: Performed By: #### B MP, GFR #### [address] [address] Urea nitrogen [Mass/Vol] 14.0 mg/dL Normal 8.0-22.0 [facility] Comment on above: Performed By: #### B MP, GFR #### [address] [address] BUN/Creatinine Ratio 9.0 ratio Low 10.0-22.0 [facility] Comment on above: Performed By: #### B 12, OSMOS #### [address] [address] Calcium [Mass/Vol] 9.7 mg/dL Normal 8.7-10.4 [facility] Comment on above: Performed By: #### B 12, OSMOS #### [address] [address] Chloride [Moles/Vol] 80 mmol/L Low 98-110 [facility] Comment on above: Performed By: #### B 12, OSMOS #### [address] [address] CO2 [Moles/Vol] 35 mmol/L High 22-32 [facility] Comment on above: Performed By: #### B 12, OSMOS #### [address] [address] Creatinine [Mass/Vol] 1.56 mg/dL High 0.60-1.40 [facility] Comment on above: Result Comment: Test ing performed on Be my eyes analyzer using enzymatic creatinine methodology. Performed By: #### B 12, TREVOR #### [address] [address] Electrolyte Balance 6.0 mEq/L Normal 4.0-15.0 [facility] Comment on above: Performed By: #### B 12, TREVOR #### [address] [address] Glucose [Mass/Vol] 148 mg/dL High 70-110 [facility] Comment on above: Performed By: #### B 12, TREVOR #### [place] [id number] Potassium [Moles/Vol] 3.5 mmol/L Normal 3.5-5.0 [facility] Comment on above: Performed By: #### B 12, TREVOR #### [place] [id number] Sodium [Moles/Vol] 121 mmol/L Low 136-145 [facility] Comment on above: Performed By: #### B 12, TREVOR #### [address] [address] Urea nitrogen [Mass/Vol] 14.0 mg/dL Normal 8.0-22.0 [facility] Comment on above: Performed By: #### B 12, TREVOR #### [place] [id number] BUN/Creatinine Ratio 8.4 ratio Low 10.0-22.0 [facility] Comment on above: Performed By: #### G FR, BMP #### [address] [address] Calcium [Mass/Vol] 10.3 mg/dL Normal 8.7-10.4 [facility] Comment on above: Performed By: #### G FR, BMP #### [place] [id number] Chloride [Moles/Vol] 76 mmol/L Critically abnormal 98-110 [facility] Comment on above: Performed By: #### G FR, BMP #### [address] [address] CO2 [Moles/Vol] mmol/L Critically abnormal 22-32 [facility] Comment on above: Performed By: #### G FR, BMP #### [address] [address] Creatinine [Mass/Vol] 1.66 mg/dL High 0.60-1.40 [facility] Comment on above: Result Comment: Test ing performed on Be my eyes analyzer using enzymatic creatinine methodology. Performed By: #### G FR, BMP #### [place] [id number] Electrolyte Balance <4.0 Normal 4.0-15.0 [facility] Comment on above: Performed By: #### G FR, BMP #### [address] [address] Glucose [Mass/Vol] 100 mg/dL Normal 70-110 [facility] Comment on above: Performed By: #### G FR, BMP #### [address] [address] Potassium [Moles/Vol] 3.3 mmol/L Low 3.5-5.0 [facility] Comment on above: Performed By: #### G FR, BMP #### [place] [id number] Sodium [Moles/Vol] 120 mmol/L Low 136-145 [facility] Comment on above: Performed By: #### G FR, BMP #### [address] [address] Urea nitrogen [Mass/Vol] 14.0 mg/dL Normal 8.0-22.0 [facility] Comment on above: Performed By: #### G FR, BMP #### [place] [id number] BUN/Creatinine Ratio 10.4 ratio Normal 10.0-22.0 [facility] Comment on above: Performed By: #### G FR, BMP #### [place] [id number] Calcium [Mass/Vol] 10.0 mg/dL Normal 8.7-10.4 [facility] Comment on above: Performed By: #### Jemal CLARKE, BMP #### [address] [address] Chloride [Moles/Vol] 76 mmol/L Critically abnormal 98-110 [facility] Comment on above: Performed By: #### Jemal CLARKE, BMP #### [address] [address] CO2 [Moles/Vol] 39 mmol/L High 22-32 [facility] Comment on above: Performed By: #### Jemal CLARKE, BMP #### [address] [address] Creatinine [Mass/Vol] 1.35 mg/dL Normal 0.60-1.40 [facility] Comment on above: Result Comment: Test ing performed on Be my eyes analyzer using enzymatic creatinine methodology. Performed By: #### Jemal CLARKE, BMP #### [address] [address] Electrolyte Balance 6.0 mEq/L Normal 4.0-15.0 [facility] Comment on above: Performed By: #### Jemal CLAREK, BMP #### [address] [address] Glucose [Mass/Vol] 99 mg/dL Normal 70-110 [facility] Comment on above: Performed By: #### Jemal CLARKE, BMP #### [address] [address] Potassium [Moles/Vol] 3.0 mmol/L Low 3.5-5.0 [facility] Comment on above: Performed By: #### Jemal FR, BMP #### [address] [address] Sodium [Moles/Vol] 121 mmol/L Low 136-145 [facility] Comment on above: Performed By: #### Jemal CLARKE, BMP #### [address] [address] Urea nitrogen [Mass/Vol] 14.0 mg/dL Normal 8.0-22.0 [facility] Comment on above: Performed By: #### G FR, BMP #### [facility] [address] [place] [address] BUN/Creatinine Ratio 9 ratio Normal 7-27 [facility] Comment on above: Performed By: #### B MP, MG, GFR #### [address] [address] Calcium [Mass/Vol] 9.6 mg/dL Normal 8.4-10.2 [facility] Comment on above: Performed By: #### B MP, MG, GFR #### [address] [address] Chloride [Moles/Vol] 73 mmol/L Low 98-107 [facility] Comment on above: Performed By: #### B MP, MG, GFR #### [address] [address] CO2 [Moles/Vol] 39 mmol/L High 22-29 [facility] Comment on above: Performed By: #### B MP, MG, GFR #### [address] [address] Creatinine [Mass/Vol] 1.41 mg/dL High 0.70-1.30 [facility] Comment on above: Result Comment: Test ing performed on Siemens Dimension EXL analyzer using a modified kinetic Tracey technique. Performed By: #### B MP, MG, GFR #### [address] [address] Electrolyte Balance 1.0 mEq/L Low 4.0-15.0 [facility] Comment on above: Performed By: #### B MP, MG, GFR #### [address] [address] Glucose [Mass/Vol] 144 mg/dL High 70-105 [facility] Comment on above: Performed By: #### B MP, MG, GFR #### [address] [address] Potassium [Moles/Vol] 2.8 mmol/L Low 3.5-5.1 [facility] Comment on above: Performed By: #### B MP, MG, GFR #### [address] [address] Sodium [Moles/Vol] 113 mmol/L Critically abnormal 136-145 [facility] Comment on above: Performed By: #### B MP, MG, GFR #### [address] [address] Urea nitrogen [Mass/Vol] 13 mg/dL Normal 7-18 [facility] Comment on above: Performed By: #### B MP, MG, GFR #### [address] [address] BUN/Creatinine Ratio 11.0 ratio Normal 10.0-22.0 [facility] Comment on above: Performed By: #### B 12, OSMOS #### [address] [address] Calcium [Mass/Vol] 10.1 mg/dL Normal 8.7-10.4 [facility] Comment on above: Performed By: #### B 12, OSMOS #### [address] [address] Chloride [Moles/Vol] 75 mmol/L Critically abnormal 98-110 [facility] Comment on above: Performed By: #### B 12, OSMOS #### [address] [address] CO2 [Moles/Vol] 38 mmol/L High 22-32 [facility] Comment on above: Performed By: #### B 12, OSMOS #### [address] [address] Creatinine [Mass/Vol] 1.27 mg/dL Normal 0.60-1.40 [facility] Comment on above: Result Comment: Test ing performed on Be my eyes analyzer using enzymatic creatinine methodology. Performed By: #### B 12, OSMOS #### [address] [address] Electrolyte Balance 4.0 mEq/L Normal 4.0-15.0 [facility] Comment on above: Performed By: #### B 12, OSMOS #### [facility] [address] [place] [address] Glucose [Mass/Vol] 129 mg/dL High 70-110 [facility] Comment on above: Performed By: #### B 12, OSMOS #### [facility] [address] [place] [address] Potassium [Moles/Vol] 3.2 mmol/L Low 3.5-5.0 [facility] Comment on above: Performed By: #### B 12, OSMOS #### [address] [address] Sodium [Moles/Vol] 117 mmol/L Critically abnormal 136-145 [facility] Comment on above: Performed By: #### B 12, OSMOS #### [address] [address] Urea nitrogen [Mass/Vol] 14.0 mg/dL Normal 8.0-22.0 [facility] Comment on above: Performed By: #### B 12, OSMOS #### [address] [address] CBCon 05-11-2024 Erythrocyte distribution width (RBC) [Ratio] 12.2 % Normal 11.5-14.5 [facility] Comment on above: Performed By: #### M DW, CBC, ADIFF, ANEU #### [address] [address] Hematocrit (Bld) [Volume fraction] 34.2 % Low 42.0-52.0 [facility] Comment on above: Performed By: #### M DW, CBC, ADIFF, ANEU #### [address] [address] Hgb 12.3 G/dL Low 14.0-18.0 [facility] Comment on above: Performed By: #### M DW, CBC, ADIFF, ANEU #### [address] [address] MCH (RBC) [Entitic mass] 31.2 pg Normal 27.0-31.2 [facility] Comment on above: Performed By: #### M DW, CBC, ADIFF, ANEU #### [address] [address] MCHC 36.1 G/dL High 31.8-35.4 [facility] Comment on above: Performed By: #### M DW, CBC, ADIFF, ANEU #### [address] [address] MCV (RBC) [Entitic vol] 86.3 fL Normal 80.0-94.0 [facility] Comment on above: Performed By: #### M DW, CBC, ADIFF, ANEU #### [address] [address] Platelet 107 10 3/mcL Low 130-400 [facility] Comment on above: Performed By: #### M DW, CBC, ADIFF, ANEU #### [address] [address] Platelet mean volume (Bld) [Entitic vol] 7.8 fL Normal 7.4-10.4 [facility] Comment on above: Performed By: #### M DW, CBC, ADIFF, ANEU #### [address] [address] RBC 3.96 10 6/mcL Low 4.04-6.13 [facility] Comment on above: Performed By: #### M DW, CBC, ADIFF, ANEU #### [address] [address] WBC 2.9 10 3/mcL Low 4.6-10.8 [facility] Comment on above: Performed By: #### M DW, CBC, ADIFF, ANEU #### [address] [address] Erythrocyte distribution width (RBC) [Ratio] 12.3 % Normal 11.5-15.5 [facility] Comment on above: Performed By: #### B 12, OSMOS #### [facility] [address] [place] [address] Hematocrit (Bld) [Volume fraction] 33.5 % Low 40.0-52.0 [facility] Comment on above: Performed By: #### B 12, OSMOS #### [place] [address] Hgb 12.2 G/dL Low 13.0-17.5 [facility] Comment on above: Performed By: #### B 12, OSMOS #### [place] [address] MCH (RBC) [Entitic mass] 31.1 pg Normal 27.0-33.0 [facility] Comment on above: Performed By: #### B 12, OSMOS #### [place] [address] MCHC 36.3 G/dL High 32.0-36.0 [facility] Comment on above: Performed By: #### B 12, OSMOS #### [place] [address] MCV (RBC) [Entitic vol] 85.5 fL Normal 81.0-100.0 [facility] Comment on above: Performed By: #### B 12, OSMOS #### [place] [address] Platelet 101 10 3/mcL Low 150-450 [facility] Comment on above: Performed By: #### B 12, OSMOS #### [place] [address] Platelet mean volume (Bld) [Entitic vol] 8.2 fL Normal 6.4-10.5 [facility] Comment on above: Performed By: #### B 12, OSMOS #### [place] [address] RBC 3.91 10 6/mcL Low 4.50-6.00 [facility] Comment on above: Performed By: #### B 12, OSMOS #### [place] [address] WBC 3.2 10 3/mcL Low 4.5-10.8 [facility] Comment on above: Performed By: #### B 12, OSMOS #### [place] [address] KURon 05-11-2024 Potassium [Moles/Vol] 26.1 mmol/L Normal [facility] Comment on above: Performed By: #### K PRISCILLA FRANKS OSMOU #### [facility] [address] [place] [address] LABORATORYOrdered By: SYSTEM SYSTEM on 05-11-2024 Calcium [Mass/Vol] 9.8 mg/dL Normal 8.7 - 10. 4 mg/dL ADM SS Chloride [Moles/Vol] 80 mmol/L Low 98 - 11 0 mEq/L AH ADM SS CO2 [Moles/Vol] 37 mmol/L High 22 - 32 mEq/L AH ADM SS Creatinine [Mass/Vol] 1.46 mg/dL High 0.60 - 1.40 mg/dL AH ADM SS Comment on above: Interpretive Data: T esting performed on Be my eyes analyzer using enzymatic creatinine methodology. Electrolyte Balance 5.0 mEq/L Normal 4.0 - 15 .0 mEq/L AH ADM SS GFR/1.73 sq M.predicted among blacks MDRD (S/P/Bld) [Vol rate/Area] 60 ml/min/1.73sqm Invalid Interpretation Code AH ADM SS Comment on above: Interpretive Data: GFR Population mean for , Non- Americans Ages 20-29 = 116 mL/min/1.73 sq.m. Ages 30-39 = 107 mL/min/1.73 sq.m. Ages 40-49 = 99 mL/min/1.73 sq.m. Ages 50-59 = 93 mL/min/1.73 sq.m. Ages 60-69 = 85 mL/min/1.73 sq.m. Ages 70+ = 75 mL/min/1.73 sq.m. Chronic Kidney Disease: Less than 60 mL/min/1.73 square meters End Stage Renal Disease: Less than 15 mL/min/1.73 square meters GFR/1.73 sq M.predicted among non-blacks MDRD (S/P/Bld) [Vol rate/Area] 50 ml/min/1.73sqm Invalid Interpretation Code AH ADM SS Comment on above: Interpretive Data: GFR Population mean for , Non- Americans Ages 20-29 = 116 mL/min/1.73 sq.m. Ages 30-39 = 107 mL/min/1.73 sq.m. Ages 40-49 = 99 mL/min/1.73 sq.m. Ages 50-59 = 93 mL/min/1.73 sq.m. Ages 60-69 = 85 mL/min/1.73 sq.m. Ages 70+ = 75 mL/min/1.73 sq.m. Chronic Kidney Disease: Less than 60 mL/min/1.73 square meters End Stage Renal Disease: Less than 15 mL/min/1.73 square meters Glucose [Mass/Vol] 96 mg/dL Normal 70 - 110 mg/dL AH ADM SS Potassium [Moles/Vol] 3.6 mmol/L Normal 3.5 - 5.0 mEq/L AH ADM SS Sodium [Moles/Vol] 122 mmol/L Low 136 - 145 mEq/L AH ADM SS Urea nitrogen [Mass/Vol] 14.0 mg/dL Normal 8.0 - 22.0 mg/dL ADM SS Urea nitrogen/Creatinine [Mass ratio] 9.6 ratio Low 10.0 - 22.0 ratio AH ADM SS Calcium [Mass/Vol] 9.7 mg/dL Normal 8.7 - 10. 4 mg/dL ADM SS Chloride [Moles/Vol] 80 mmol/L Low 98 - 11 0 mEq/L ADM SS CO2 [Moles/Vol] 35 mmol/L High 22 - 32 mEq/L AH ADM SS Creatinine [Mass/Vol] 1.56 mg/dL High 0.60 - 1.40 mg/dL ADM SS Comment on above: Interpretive Data: T esting performed on [employer] analyzer using enzymatic creatinine methodology. Electrolyte Balance 6.0 mEq/L Normal 4.0 - 15 .0 mEq/L ADM SS GFR/1.73 sq M.predicted among blacks MDRD (S/P/Bld) [Vol rate/Area] 56 ml/min/1.73sqm Invalid Interpretation Code ADM SS Comment on above: Interpretive Data: GFR Population mean for , Non- Americans Ages 20-29 = 116 mL/min/1.73 sq.m. Ages 30-39 = 107 mL/min/1.73 sq.m. Ages 40-49 = 99 mL/min/1.73 sq.m. Ages 50-59 = 93 mL/min/1.73 sq.m. Ages 60-69 = 85 mL/min/1.73 sq.m. Ages 70+ = 75 mL/min/1.73 sq.m. Chronic Kidney Disease: Less than 60 mL/min/1.73 square meters End Stage Renal Disease: Less than 15 mL/min/1.73 square meters GFR/1.73 sq M.predicted among non-blacks MDRD (S/P/Bld) [Vol rate/Area] 46 ml/min/1.73sqm Invalid Interpretation Code ADM SS Comment on above: Interpretive Data: GFR Population mean for , Non- Americans Ages 20-29 = 116 mL/min/1.73 sq.m. Ages 30-39 = 107 mL/min/1.73 sq.m. Ages 40-49 = 99 mL/min/1.73 sq.m. Ages 50-59 = 93 mL/min/1.73 sq.m. Ages 60-69 = 85 mL/min/1.73 sq.m. Ages 70+ = 75 mL/min/1.73 sq.m. Chronic Kidney Disease: Less than 60 mL/min/1.73 square meters End Stage Renal Disease: Less than 15 mL/min/1.73 square meters Glucose [Mass/Vol] 148 mg/dL High 70 - 110 mg/dL ADM SS Potassium [Moles/Vol] 3.5 mmol/L Normal 3.5 - 5.0 mEq/L ADM SS Sodium [Moles/Vol] 121 mmol/L Low 136 - 145 mEq/L ADM SS Urea nitrogen [Mass/Vol] 14.0 mg/dL Normal 8.0 - 22.0 mg/dL ADM SS Urea nitrogen/Creatinine [Mass ratio] 9.0 ratio Low 10.0 - 22.0 ratio ADM SS Cobalamin (Vitamin B12) [Mass/Vol] 1813 pg/mL High 211 - 911 pg/mL ADM SS Basophils (Bld) [#/Vol] 0.0 103/mcL Normal 0.0 - 0.3 10^3/mcL Workflow SS Basophils/100 WBC (Bld) 0.4 % Normal 0.0 - 2.5 % Workflow SS Eosinophils (Bld) [#/Vol] 0.0 103/mcL Normal 0.0 - 0.7 10^3/mcL AH Workflow SS Eosinophils/100 WBC (Bld) 0.1 % Normal 0.0 - 6.0 % AH Workflow SS Erythrocyte distribution width (RBC) [Ratio] 12.3 % Normal 11.5 - 15.5 % AH Workflow SS Hematocrit (Bld) [Volume fraction] 33.5 % Low 40.0 - 52.0 % AH Workflow SS Hemoglobin (Bld) [Mass/Vol] 12.2 G/dL Low 13.0 - 17.5 G/dL AH Workflow SS Lymphocytes (Bld) [#/Vol] 0.5 103/mcL Low 0.9 - 4.3 10^3/mcL AH Workflow SS Lymphocytes/100 WBC (Bld) 14.9 % Low 20.0 - 40.0 % AH Workflow SS Magnesium [Mass/Vol] 2.3 mg/dL Normal 1.6 - 2 .4 mg/dL AH ADM SS MCH (RBC) [Entitic mass] 31.1 pg Normal 27.0 - 33.0 pg AH Workflow SS MCHC 36.3 G/dL High 32.0 - 36.0 G/dL AH Workflow SS MCV (RBC) [Entitic vol] 85.5 fL Normal 81.0 - 100.0 fL AH Workflow SS Monocytes (Bld) [#/Vol] 0.4 103/mcL Normal 0.1 - 1.4 10^3/mcL AH Workflow SS Monocytes/100 WBC (Bld) 11.0 % Normal 2.0 - 13.0 % AH Workflow SS Neutrophils (Bld) [#/Vol] 2.3 103/mcL Normal 2.3 - 8.1 10^3/mcL AH Workflow SS Neutrophils/100 WBC (Bld) 73.6 % Normal 50.0 - 75.0 % AH Workflow SS Platelet mean volume (Bld) [Entitic vol] 8.2 fL Normal 6.4 - 10.5 fL AH Workflow SS Platelets (Bld) [#/Vol] 101 103/mcL Low 150 - 450 10^3/mcL AH Workflow SS RBC (Bld) [#/Vol] 3.91 106/mcL Low 4.50 - 6.0 0 10^6/mcL AH Workflow SS WBC (Bld) [#/Vol] 3.2 103/mcL Low 4.5 - 10.8 10^3/mcL AH Workflow SS LABORATORYOrdered By: Lupe Dye on 05-11-2024 Osmolality (U) [Osmolality] 173 mosm/kg Low 390 - 1090 mOsm/kg Manual Chem SS LABORATORYOrdered By: Елена Palomo on 05-11-2024 Potassium (U) [Moles/Vol] 26.1 mmol/L Invalid Interpretation Code ADM SS Sodium (U) [Moles/Vol] mEq/L Invalid Interpretation Code ADM SS LABORATORYOrdered By: Blaze Flores on 05-11-2024 Osmolality [Osmolality] 249 mosm/kg Low 275 - 300 mOsm/kg Manual Chem SS MGon 05-11-2024 Magnesium [Mass/Vol] 1.7 mg/dL Low 1.8-2.4 [facility] Comment on above: Performed By: #### B MP MG, GFR #### [place] [address] [address] Magnesium [Mass/Vol] 2.3 mg/dL Normal 1.6-2.4 [facility] Comment on above: Performed By: #### B 12, OSMOS #### [place] [address] NAURon 05-11-2024 U Sodium <10 Normal [facility] Comment on above: Performed By: #### G , BMP #### [place] [address] OSMOSon 05-11-2024 Osmolality [Osmolality] 249 mosm/kg Low 275-300 [facility] Comment on above: Performed By: #### B 12, OSMOS #### [place] [address] OSMOUon 05-11-2024 U Osmolality 173 mOsm/kg Low 390-1090 [facility] Comment on above: Performed By: #### K PRISCILLA FRANKS, OSMOU #### [place] [address] .Auto Diffon 05-10-2024 Basophil, Absolute 0.0 10 3/mcL Normal 0.0-0.3 [facility] Comment on above: Performed By: #### G FR, BMP #### [place] [address] Basophils/100 WBC (Bld) 0.2 % Normal 0.0-2.5 [facility] Comment on above: Performed By: #### G FR, BMP #### [address] [address] Eosinophil, Absolute 0.0 10 3/mcL Normal 0.0-0.[address] [facility] Comment on above: Performed By: #### G FR, BMP #### [address] [address] Eosinophils/100 WBC (Bld) 0.2 % Normal 0.0-6.0 [facility] Comment on above: Performed By: #### G FR, BMP #### [address] [address] Lymphocyte, Absolute 0.5 10 3/mcL Low 0.9-4.[address] [facility] Comment on above: Performed By: #### G FR, BMP #### [address] [address] Lymphocytes/100 WBC (Bld) 17.2 % Low 20.0-40.0 [facility] Comment on above: Performed By: #### G FR, BMP #### [address] [address] Monocyte, Absolute 0.3 10 3/mcL Normal 0.1-1.4 [facility] Comment on above: Performed By: #### G FR, BMP #### [address] [address] Monocytes/100 WBC (Bld) 9.3 % Normal 2.0-13.0 [facility] Comment on above: Performed By: #### G FR, BMP #### [address] [address] Neutrophils/100 WBC (Bld) 73.1 % Normal 50.0-75.0 [facility] Comment on above: Performed By: #### G FR, BMP #### [address] [address] .GFRon 05-10-2024 GFR >60 Normal [facility] Comment on above: Result Comment: GFR Population mean for , Non- Americans Ages 20-29 = 116 mL/min/1.73 sq.m. Ages 30-39 = 107 mL/min/1.73 sq.m. Ages 40-49 = 99 mL/min/1.73 sq.m. Ages 50-59 = 93 mL/min/1.73 sq.m. Ages 60-69 = 85 mL/min/1.73 sq.m. Ages 70+ = 75 mL/min/1.73 sq.m. Chronic Kidney Disease: Less than 60 mL/min/1.73 square meters End Stage Renal Disease: Less than 15 mL/min/1.73 square meters Performed By: #### B 12, TODOS #### [address] [address] GFR Non- >60 [facility] Comment on above: Result Comment: GFR Population mean for , Non- Americans Ages 20-29 = 116 mL/min/1.73 sq.m. Ages 30-39 = 107 mL/min/1.73 sq.m. Ages 40-49 = 99 mL/min/1.73 sq.m. Ages 50-59 = 93 mL/min/1.73 sq.m. Ages 60-69 = 85 mL/min/1.73 sq.m. Ages 70+ = 75 mL/min/1.73 sq.m. Chronic Kidney Disease: Less than 60 mL/min/1.73 square meters End Stage Renal Disease: Less than 15 mL/min/1.73 square meters Performed By: #### B 12, TODOS #### [address] [address] GFR 62 ml/min/1.73sqm [facility] ([place]) Comment on above: Result Comment: GFR Population mean for , Non- Americans Ages 20-29 = 116 mL/min/1.73 sq.m. Ages 30-39 = 107 mL/min/1.73 sq.m. Ages 40-49 = 99 mL/min/1.73 sq.m. Ages 50-59 = 93 mL/min/1.73 sq.m. Ages 60-69 = 85 mL/min/1.73 sq.m. Ages 70+ = 75 mL/min/1.73 sq.m. Chronic Kidney Disease: Less than 60 mL/min/1.73 square meters End Stage Renal Disease: Less than 15 mL/min/1.73 square meters Performed By: #### B MP, GFR, TROPHS #### [place] [address] [place], [place] [address] GFR Non- 51 ml/min/1.73sqm Normal [facility] ([place]) Comment on above: Result Comment: GFR Population mean for , Non- Americans Ages 20-29 = 116 mL/min/1.73 sq.m. Ages 30-39 = 107 mL/min/1.73 sq.m. Ages 40-49 = 99 mL/min/1.73 sq.m. Ages 50-59 = 93 mL/min/1.73 sq.m. Ages 60-69 = 85 mL/min/1.73 sq.m. Ages 70+ = 75 mL/min/1.73 sq.m. Chronic Kidney Disease: Less than 60 mL/min/1.73 square meters End Stage Renal Disease: Less than 15 mL/min/1.73 square meters Performed By: #### B MP, GFR, TROPHS #### [address] [address] .NEUABSon 05-10-2024 Neutrophil, Absolute 2.2 10 3/mcL Low 2.3-8.1 [facility] Comment on above: Performed By: #### G FR, [facility] #### [address] [address] BMPon 05-10-2024 BUN/Creatinine Ratio 9 ratio Normal 7-27 [facility] ([place]) Comment on above: Performed By: #### B MP, GFR, TROPHS #### [address] [address] Calcium [Mass/Vol] 9.9 mg/dL Normal 8.4-10.2 [facility] ([place]) Comment on above: Performed By: #### B MP, GFR, TROPHS #### [address] [address] Chloride [Moles/Vol] 69 mmol/L Low 98-107 [facility] ([place]) Comment on above: Performed By: #### B MP, GFR, TROPHS #### [address] [address] CO2 [Moles/Vol] 36 mmol/L High 22-29 [facility] ([place]) Comment on above: Performed By: #### B MP, GFR, TROPHS #### [address] [address] Creatinine [Mass/Vol] 1.42 mg/dL High 0.70-1.30 [facility] ([place]) Comment on above: Result Comment: Test ing performed on Siemens Dimension EXL analyzer using a modified kinetic Tracey technique. Performed By: #### B MP, GFR, TROPHS #### [address] [address] Electrolyte Balance 7.0 mEq/L Normal 4.0-15.0 [facility] ([place]) Comment on above: Performed By: #### B MP, GFR, TROPHS #### [address] [address] Glucose [Mass/Vol] 117 mg/dL High 70-105 [facility] ([place]) Comment on above: Performed By: #### B MP, GFR, TROPHS #### [address] [address] Potassium [Moles/Vol] 2.2 mmol/L Critically abnormal 3.5-5.1 [facility] ([place]) Comment on above: Performed By: #### B MP, GFR, TROPHS #### [address] [address] Sodium [Moles/Vol] 112 mmol/L Critically abnormal 136-145 [facility] ([place]) Comment on above: Performed By: #### B MP, GFR, TROPHS #### [address] [address] Urea nitrogen [Mass/Vol] 13 mg/dL Normal 7-18 [facility] ([place]) Comment on above: Performed By: #### B MP, GFR, TROPHS #### [facility] [address] [place], [place] [address] CAIONon 05-10-2024 Calcium Ionized 1.04 mmol/L Low 1.12-1.32 [facility] Comment on above: Performed By: #### Jemal , BMP #### [address] [address] CBCon 05-10-2024 Erythrocyte distribution width (RBC) [Ratio] 12.4 % Normal 11.5-15.5 [facility] Comment on above: Performed By: #### Jemal , BMP #### [place] [address] Hematocrit (Bld) [Volume fraction] 33.8 % Low 40.0-52.0 [facility] Comment on above: Performed By: #### Jemal , BMP #### [place] [address] Hgb 12.1 G/dL Low 13.0-17.5 [facility] Comment on above: Performed By: #### Jemal , BMP #### [place] [address] MCH (RBC) [Entitic mass] 31.3 pg Normal 27.0-33.0 [facility] Comment on above: Performed By: #### Jemal , BMP #### [place] [address] MCHC 35.8 G/dL Normal 32.0-36.0 [facility] Comment on above: Performed By: #### Jemal FR, BMP #### [place] [address] MCV (RBC) [Entitic vol] 87.5 fL Normal 81.0-100.0 [facility] Comment on above: Performed By: #### Jemal FR, BMP #### [place] [address] Platelet 114 10 3/mcL Low 150-450 [facility] Comment on above: Performed By: #### Jemal FR, BMP #### [place] [id number] Platelet mean volume (Bld) [Entitic vol] 8.7 fL Normal 6.4-10.5 [facility] Comment on above: Performed By: #### G FR, BMP #### [place] [address] RBC 3.87 10 6/mcL Low 4.50-6.00 [facility] Comment on above: Performed By: #### G FR, BMP #### [place] [address] WBC 3.0 10 3/mcL Low 4.5-10.8 [facility] Comment on above: Performed By: #### G FR, BMP #### [place] [address] CMPon 05-10-2024 Albumin Level 4.4 G/dL Normal 3.2-4.8 [facility] Comment on above: Performed By: #### B 12, TREVOR #### [place] [address] Albumin/Globulin [Mass ratio] 1.6 {ratio} Normal 0.9-1.6 [facility] Comment on above: Performed By: #### B 12, TREVOR #### [address] [address] ALP [Catalytic activity/Vol] 99 U/L Normal 38-126 [facility] Comment on above: Performed By: #### B 12, OSMOS #### [place] [id number] ALT [Catalytic activity/Vol] 253 U/L High 12-55 [facility] Comment on above: Performed By: #### B 12, OSMOS #### [address] [address] AST [Catalytic activity/Vol] 228 U/L High 8-34 [facility] Comment on above: Performed By: #### B 12, OSMOS #### [place] [address] Bili Total 1.50 mg/dL High 0.20-1.20 [facility] Comment on above: Result Comment: Use of this assay is not recommended for patients undergoing treatment with eltrombopag due to the potential for falsely elevated results. Performed By: #### B 12, OSMOS #### [place] [address] BUN/Creatinine Ratio 12.4 ratio Normal 10.0-22.0 [facility] Comment on above: Performed By: #### B 12, OSMOS #### [place] [id number] Calcium [Mass/Vol] 10.3 mg/dL Normal 8.7-10.4 [facility] Comment on above: Performed By: #### B 12, OSMOS #### [place] [address] Chloride [Moles/Vol] 72 mmol/L Critically abnormal 98-110 [facility] Comment on above: Performed By: #### B 12, OSMOS #### [place] [address] CO2 [Moles/Vol] 36 mmol/L High 22-32 [facility] Comment on above: Performed By: #### B 12, OSMOS #### [place] [address] Creatinine [Mass/Vol] 1.13 mg/dL Normal 0.60-1.40 [facility] Comment on above: Result Comment: Test ing performed on [employer] analyzer using enzymatic creatinine methodology. Performed By: #### B 12, OSMOS #### [place] [address] Electrolyte Balance 9.0 mEq/L Normal 4.0-15.0 [facility] Comment on above: Performed By: #### B 12, OSMOS #### [place] [id number] Globulin 2.8 G/dL Normal 1.5-3.8 [facility] Comment on above: Performed By: #### B 12, OSMOS #### [place] [id number] Glucose [Mass/Vol] 109 mg/dL Normal 70-110 [facility] Comment on above: Performed By: #### B 12, OSMOS #### [address] [address] Potassium [Moles/Vol] 2.5 mmol/L Critically abnormal 3.5-5.0 [facility] Comment on above: Performed By: #### B 12, OSMOS #### [address] [address] Sodium [Moles/Vol] 117 mmol/L Critically abnormal 136-145 [facility] Comment on above: Performed By: #### B 12, OSMOS #### [address] [address] Total Protein 7.2 G/dL Normal 5.7-8.2 [facility] Comment on above: Result Comment: No te - New Reference Range in effect 20 Performed By: #### B 12, OSMOS #### [address] [address] Urea nitrogen [Mass/Vol] 14.0 mg/dL Normal 8.0-22.0 [facility] Comment on above: Performed By: #### B 12, OSMOS #### [address] [address] [address] HEAD OR BRAIN W/O CONTRAS Ton 05-10-2024 CT HEAD OR BRAIN W/O CONTRAST ORIGINAL EXAMINATION: CT OF THE HEAD WITHOUT CONTRAST 05/10/2024 4:21 pm TECHNIQUE: CT of the head was performed without the administration of intravenous contrast. Automated exposure control, iterative reconstruction, and/or weight based adjustment of the mA/kV was utilized to reduce the radiation dose to as low as reasonably achievable. COMPARISON: None. HISTORY: ORDERING SYSTEM PROVIDED HISTORY: Reason for Exam: syncopal episode FINDINGS: BRAIN/VENTRICLES: There is no acute intracranial hemorrhage, mass effect, or midline shift. No abnormal extra-axial fluid collection. The collins-white differentiation is maintained without evidence of an acute infarct. There is no evidence of hydrocephalus. There are scattered areas of decreased attenuation white matter, which statistically reflect mild chronic microvascular white matter ischemic disease. Atherosclerotic calcifications of the bilateral internal carotid siphons. ORBITS: Visualized portion of the orbits demonstrate no acute abnormality. SINUSES: The visualized paranasal sinuses and mastoid air cells demonstrate no acute abnormality SOFT TISSUES/SKULL: There is S shaped curvature of the nasal septum. There is no acute abnormality of the visualized skull or soft tissues. IMPRESSION: No acute intracranial abnormality I have personally reviewed the images of this examination and agree with the resident's findings and interpretation. Interpreted by: Malcom Reardon MD Preliminary Report By: Ronald Newton Electronically signed By Malcom Reardon MD Dictated Date: 05/10/2024 4:24:18 PM Prelim Date: 05/10/2024 4:43:34 PM Sign Date: 05/10/2024 4:43:34 PM Ordering Provider: [facility] CT MAXILLOFACIAL W/O CONTRAS Ton 05-10-2024 CT MAXILLOFACIAL W/O CONTRAST ORIGINAL EXAMINATION: CT OF THE FACE WITHOUT CONTRAST05/10/2024 4:25 pm TECHNIQUE: CT of the face was performed without the administration of intravenous contrast. Multiplanar reformatted images are provided for review. Automated exposure control, iterative reconstruction, and/or weight based adjustment of the mA/kV was utilized to reduce the radiation dose to as low as reasonably achievable. COMPARISON: None. HISTORY: ORDERING SYSTEM PROVIDED HISTORY: Reason for Exam: INJURY FINDINGS: BONES: The orbital chávez, zygomatic arches, nasal bones, anterior nasal spines of the maxilla, pterygoid plates, and mandible are intact. The temporomandibular joints are maintained. There are degenerative changes seen in the cervical spine. There are scattered periapical lucencies of both maxillary mandibular teeth. Carious dentition is also appreciated. ORBITS: No acute orbital abnormality. SINUSES: Mild mucosal thickening is seen in the left maxillary sinus. Otherwise the paranasal sinuses and imaged mastoid air cells are essentially clear. IMPRESSION: No acute fracture. I have personally reviewed the images of this examination and agree with the resident's findings and interpretation. Interpreted by: Samir Scott Preliminary Report By: Danial Carbajal Electronically signed By Samir Scott Dictated Date: 05/10/2024 4:27:06 PM Prelim Date: 05/10/2024 4:32:38 PM Sign Date: 05/10/2024 4:36:06 PM Ordering Provider: EBONY RAE [facility] ([place]) CT SPINE CERVICAL W/O CONTRA STon 05-10-2024 CT SPINE CERVICAL W/O CONTRAST ORIGINAL EXAMINATION: CT OF THE CERVICAL SPINE WITHOUT CONTRAST 05/10/2024 4:26 pm TECHNIQUE: CT of the cervical spine was performed without the administration of intravenous contrast. Multiplanar reformatted images are provided for review. Automated exposure control, iterative reconstruction, and/or weight based adjustment of the mA/kV was utilized to reduce the radiation dose to as low as reasonably achievable. COMPARISON: None. HISTORY: ORDERING SYSTEM PROVIDED HISTORY: Reason for Exam: pain FINDINGS: BONES/ALIGNMENT: There is no acute fracture or traumatic malalignment. DEGENERATIVE CHANGES: Multilevel degenerative changes of the spine. No high-grade spinal canal stenosis. Variable bilateral neural foraminal narrowing. Bulky anterior osteophytes which displaced the aerodigestive tract anteriorly. SOFT TISSUES: There is no prevertebral soft tissue swelling. IMPRESSION: No acute fracture of the cervical spine. Interpreted by: Samir Scott Preliminary Report By: Samir Scott Electronically signed By Samir Scott Dictated Date: 05/10/2024 4:29:51 PM Prelim Date: 05/10/2024 4:33:52 PM Sign Date: 05/10/2024 4:33:52 PM Ordering Provider: EBONY RAE Normal [facility]) CVFLURVorubia 05-10-2024 FLU A PCR Negative Normal Negative [facility]) Comment on above: Performed By: #### C VFLURV #### [place] [address] FLU B PCR Negative Normal Negative [facility] Comment on above: Performed By: #### C VFLURV #### [address] [address] RSV PCR Negative Normal Negative [facility]) Comment on above: Performed By: #### C VFLURV #### [address] [address] SARS-CoV-2 (COVID-19) RNA MAGDALENA+probe Ql (Unsp spec) Negative Normal Negative [facility]) Comment on above: Result Comment: Resu lts from the Xpert Xpress CoV-2/Flu/RSV plus test should be correlated with the clinical history, epidemiological data, and other data available to the clinical evaluating the patient. Performance of the Xpert Xpress CoV-2/Flu/RSV plus test has only been established in nasopharyngeal swab specimen. Erroneous test results might occur from improper specimen collection, failure to follow the recommended sample collection, handling and storage procedures, technical error, or sample mix-up. False negative results may occur if a virus is present at a level below the analytical limit of detection. Viral nucleic acid may persist in vivo, independent of virus viability. Detection of analyte target(s) does not imply that the corresponding virus(es) are infectious or are the causative agents for clinical symptoms. Recent patient exposure to FluMist or other live attenuated influenza vaccines may cause inaccurate positive results. Performed By: #### C VFLURV #### [place] [address] LABORATORYOrdered By: SYSTEM SYSTEM on 05-10-2024 Albumin BCP dye [Mass/Vol] 4.4 G/dL Normal 3.2 - 4.8 G/dL ADM SS Albumin/Globulin [Mass ratio] 1.6 {ratio} Normal 0.9 - 1.6 ratio ADM SS ALP [Catalytic activity/Vol] 99 U/L Normal 38 - 126 U/L ADM SS ALT No additional P-5'-P [Catalytic activity/Vol] 253 U/L High 12 - 55 U/L ADM SS AST [Catalytic activity/Vol] 228 U/L High 8 - 34 U/L AH ADM SS Basophils (Bld) [#/Vol] 0.0 103/mcL Normal 0.0 - 0.3 10^3/mcL Workflow SS Basophils/100 WBC (Bld) 0.2 % Normal 0.0 - 2.5 % Workflow SS Bilirubin [Mass/Vol] 1.50 mg/dL High 0.20 - 1.20 mg/dL ADM SS Comment on above: Interpretive Data: U se of this assay is not recommended for patients undergoing treatment with eltrombopag due to the potential for falsely elevated results. Eosinophils (Bld) [#/Vol] 0.0 103/mcL Normal 0.0 - 0.7 10^3/mcL Workflow SS Eosinophils/100 WBC (Bld) 0.2 % Normal 0.0 - 6.0 % Workflow SS Erythrocyte distribution width (RBC) [Ratio] 12.4 % Normal 11.5 - 15.5 % AH Workflow SS Globulin 2.8 G/dL Normal 1.5 - 3.8 G/dL ADM SS Hematocrit (Bld) [Volume fraction] 33.8 % Low 40.0 - 52.0 % AH Workflow SS Hemoglobin (Bld) [Mass/Vol] 12.1 G/dL Low 13.0 - 17.5 G/dL AH Workflow SS Lymphocytes (Bld) [#/Vol] 0.5 103/mcL Low 0.9 - 4.3 10^3/mcL Workflow SS Lymphocytes/100 WBC (Bld) 17.2 % Low 20.0 - 40.0 % AH Workflow SS Magnesium [Mass/Vol] 2.6 mg/dL High 1.6 - 2 .4 mg/dL ADM SS MCH (RBC) [Entitic mass] 31.3 pg Normal 27.0 - 33.0 pg Workflow SS MCHC 35.8 G/dL Normal 32.0 - 36.0 G/dL Workflow SS MCV (RBC) [Entitic vol] 87.5 fL Normal 81.0 - 100.0 fL AH Workflow SS Monocytes (Bld) [#/Vol] 0.3 103/mcL Normal 0.1 - 1.4 10^3/mcL Workflow SS Monocytes/100 WBC (Bld) 9.3 % Normal 2.0 - 13.0 % AH Workflow SS Neutrophils (Bld) [#/Vol] 2.2 103/mcL Low 2.3 - 8.1 10^3/mcL Workflow SS Neutrophils/100 WBC (Bld) 73.1 % Normal 50.0 - 75.0 % Workflow SS Phosphate [Mass/Vol] 1.7 mg/dL Low 2.4 - 5 .1 mg/dL ADM SS Comment on above: Interpretive Data: * *Note - New Reference Range in effect 20 Platelet mean volume (Bld) [Entitic vol] 8.7 fL Normal 6.4 - 10.5 fL Workflow SS Platelets (Bld) [#/Vol] 114 103/mcL Low 150 - 450 10^3/mcL Workflow SS Protein [Mass/Vol] 7.2 G/dL Normal 5.7 - 8.2 G/dL ADM SS Comment on above: Interpretive Data: * *Note - New Reference Range in effect 20 PT Coag (PPP) [Time] 10.7 s Normal 9.0 - 1 4.4 seconds [facility] Comment on above: Interpretive Data: E ffective 03/19/08, Protime results may be affected by some antibiotics (i.e. Ciprofloxacin, Azithromycin, Bactrim) which may potentiate the action of oral anticoagulants, with further increases in Protime/INR. PT International Ratio 0.9 ratio Invalid Interpretation Code [facility] Comment on above: Interpretive Data: T jaskaran [employer] (CHEST, 1991, [id number]) recommended therapeutic range for oral anticoagulant therapy is: LOW RISK: Prophylaxis of venous thrombosis INR: 2.0-3.0 Treatment of pulmonary embolism 2.0-3.0 Prevention of systemic embolism 2.0-3.0 HIGH RISK: Mechanical prosthetic valves 2.5-3.5 RBC (Bld) [#/Vol] 3.87 106/mcL Low 4.50 - 6.0 0 10^6/mcL Workflow SS Troponin I.cardiac DL <= 0.01 ng/mL [Mass/Vol] 11 ng/L Normal 0 - 54 ng/L AH ADM SS Comment on above: Interpretive Data: High Sensitive Troponin I Reference Ranges: Female: 0-34 ng/L Male: 0-54 ng/L Testing performed on [employer] analyzer using direct chemiluminescent technology. WBC (Bld) [#/Vol] 3.0 103/mcL Low 4.5 - 10.8 10^3/mcL Workflow SS Magnesium [Mass/Vol] 1.7 mg/dL Low 1.8 - 2 .4 mg/dL AO ADM SS Calcium [Mass/Vol] 9.9 mg/dL Normal 8.4 - 10. 2 mg/dL AO ADM SS Chloride [Moles/Vol] 69 mmol/L Low 98 - 10 7 mmol/L AO ADM SS CO2 [Moles/Vol] 36 mmol/L High 22 - 29 mmol/L AO ADM SS Creatinine [Mass/Vol] 1.42 mg/dL High 0.70 - 1.30 mg/dL AO ADM SS Comment on above: Interpretive Data: T esting performed on Siemens Dimension EXL analyzer using a modified kinetic Tracey technique. Electrolyte Balance 7.0 mEq/L Normal 4.0 - 15 .0 mEq/L AO ADM SS GFR/1.73 sq M.predicted among blacks MDRD (S/P/Bld) [Vol rate/Area] 62 ml/min/1.73sqm Invalid Interpretation Code AO Chemistry S Comment on above: Interpretive Data: GFR Population mean for , Non- Americans Ages 20-29 = 116 mL/min/1.73 sq.m. Ages 30-39 = 107 mL/min/1.73 sq.m. Ages 40-49 = 99 mL/min/1.73 sq.m. Ages 50-59 = 93 mL/min/1.73 sq.m. Ages 60-69 = 85 mL/min/1.73 sq.m. Ages 70+ = 75 mL/min/1.73 sq.m. Chronic Kidney Disease: Less than 60 mL/min/1.73 square meters End Stage Renal Disease: Less than 15 mL/min/1.73 square meters GFR/1.73 sq M.predicted among non-blacks MDRD (S/P/Bld) [Vol rate/Area] 51 ml/min/1.73sqm Invalid Interpretation Code AO Chemistry S Comment on above: Interpretive Data: GFR Population mean for , Non- Americans Ages 20-29 = 116 mL/min/1.73 sq.m. Ages 30-39 = 107 mL/min/1.73 sq.m. Ages 40-49 = 99 mL/min/1.73 sq.m. Ages 50-59 = 93 mL/min/1.73 sq.m. Ages 60-69 = 85 mL/min/1.73 sq.m. Ages 70+ = 75 mL/min/1.73 sq.m. Chronic Kidney Disease: Less than 60 mL/min/1.73 square meters End Stage Renal Disease: Less than 15 mL/min/1.73 square meters Glucose [Mass/Vol] 117 mg/dL High 70 - 105 mg/dL AO ADM SS Potassium [Moles/Vol] 2.2 mmol/L Invalid Interpretation Code 3.5 - 5.1 mmol/L AO ADM SS Sodium [Moles/Vol] 112 mmol/L Invalid Interpretation Code 136 - 145 mmol/L AO ADM SS Troponin I.cardiac DL <= 0.01 ng/mL [Mass/Vol] 9 ng/L Normal 0 - 76 ng/L AO ADM SS Comment on above: Interpretive Data: H igh Sensitive Troponin I Reference Ranges: Female: 0-51 ng/L Male: 0-76 ng/L Testing performed on eTobb using a homogeneous sandwich chemiluminescent immunoassay based on [employer] technology. Urea nitrogen [Mass/Vol] 13 mg/dL Normal 7 - 18 mg/dL AO ADM SS Urea nitrogen/Creatinine [Mass ratio] 9 ratio Normal 7 - 27 ratio AO ADM SS LABORATORYOrdered By: Elvira Azar on 05-10-2024 Calcium Ionized 1.04 mmol/L Low 1.12 - 1.32 mmol/L AH Main Rapid Comm SS LABORATORYOrdered By: Gabrielle May on 05-10-2024 Blood Glucose Testing Reason Routine (05/10/24 8:38 PM) [facility] Glucose [Mass/Vol] 136 mg/dL High 70 - 110 mg/dL [facility] LABORATORYOrdered By: Marie Chaparro on 05-10-2024 FLUAV RNA MAGDALENA+probe Ql (Resp) Negative (05/10/24 3:16 PM) Normal Negative AO Auto Urine SS FLUBV RNA MAGDALENA+probe Ql (Resp) Negative (05/10/24 3:16 PM) Normal Negative AO Auto Urine SS RSV RNA MAGDALENA+probe Ql (Resp) Negative (05/10/24 3:16 PM) Normal Negative AO Auto Urine SS SARS-CoV-2 (COVID-19) RNA MAGDALENA+probe Ql (Resp) Negative 3 (05/10/24 3:16 PM) Normal Negative AO Auto Urine SS Comment on above: Interpretive Data: R esults from the Xpert Xpress CoV-2/Flu/RSV plus test should be correlated with the clinical history, epidemiological data, and other data available to the clinical evaluating the patient. Performance of the Xpert Xpress CoV-2/Flu/RSV plus test has only been established in nasopharyngeal swab specimen. Erroneous test results might occur from improper specimen collection, failure to follow the recommended sample collection, handling and storage procedures, technical error, or sample mix-up. False negative results may occur if a virus is present at a level below the analytical limit of detection. Viral nucleic acid may persist in vivo, independent of virus viability. Detection of analyte target(s) does not imply that the corresponding virus(es) are infectious or are the causative agents for clinical symptoms. Recent patient exposure to FluMist or other live attenuated influenza vaccines may cause inaccurate positive results. MGon 05-10-2024 Magnesium [Mass/Vol] 2.6 mg/dL High 1.6-2.4 [facility] Comment on above: Performed By: #### G FR, BMP #### [address] [address] Magnesium [Mass/Vol] 1.7 mg/dL Low 1.8-2.4 [facility] Comment on above: Performed By: #### M G #### [facility] [address] [place], [place] [address] PHOSon 05-10-2024 Phosphate [Mass/Vol] 1.7 mg/dL Low 2.4-5.1 [facility] Comment on above: Result Comment: No te - New Reference Range in effect 20 Performed By: #### B 12, OSMOS #### [address] [address] PROon 05-10-2024 INR Coag (PPP) [Relative time] 0.9 {INR} Normal [facility] Comment on above: Result Comment: The [employer] (CHEST, 1992, 102:[id number]) recommended therapeutic range for oral anticoagulant therapy is: LOW RISK: Prophylaxis of venous thrombosis INR: 2.0-3.0 Treatment of pulmonary embolism 2.0-3.0 Prevention of systemic embolism 2.0-3.0 HIGH RISK: Mechanical prosthetic valves 2.5-3.5 Performed By: #### G , BMP #### [address] [address] PT Coag (PPP) [Time] 10.7 s Normal 9.0-14.4 [facility] Comment on above: Result Comment: Effe ctive 03/19/08, Protime results may be affected by some antibiotics (i.e. Ciprofloxacin, Azithromycin, Bactrim) which may potentiate the action of oral anticoagulants, with further increases in Protime/INR. Performed By: #### G FR, BMP #### [facility] [address] [place] [id number] TROPHSon 05-10-2024 High Sensitivity Troponin I 11 ng/L Normal 0-54 [facility] Comment on above: Result Comment: High Sensitive Troponin I Reference Ranges: Female: 0-34 ng/L Male: 0-54 ng/L Testing performed on MedAvail IM analyzer using direct chemiluminescent technology. Performed By: #### G FR, BMP #### [address] [address] High Sensitivity Troponin I 9 ng/L Normal 0-76 [facility] ([place]) Comment on above: Result Comment: High Sensitive Troponin I Reference Ranges: Female: 0-51 ng/L Male: 0-76 ng/L Testing performed on eTobb using a homogeneous sandwich chemiluminescent immunoassay based on [employer] technology. Performed By: #### B MPMOISÉS, SUZYS #### [facility] [address] [id number] [place], [place] [address] Basophil percentageOrdered B y: Geeta Chavez on 05-17-2023 Chloride [Moles/Vol] 102 mmol/L 98-107 [facility] Cholesterol [Mass/Vol] 138 mg/dL <200 [facility] Comment on above: <200 mg/dL Desirable 200-240 mg/dL Borderline >240 mg/dL High Risk Glucose [Mass/Vol] 90 mg/dL 74-106 [facility] [place] Potassium [Moles/Vol] 3.7 mmol/L 3.5-5.1 [facility] Sodium [Moles/Vol] 136 mmol/L 136-145 [facility] [place] Triglyceride [Mass/Vol] 132 mg/dL <199 [facility] Comment on above: The drugs N-Acetylcy steine and Metamizole may falsely depress this assay.Serum Triglycerides Reference Interval Normal <150 mg/dL Borderline high 150 - 199 mg/dL High 200 - 499 mg/dL Very High > or = 500 mg/dL Laboratory - Chemistry and C hemistry - challengeOrdered By: Geeta Chavez on 05-17-2023 ALT [Catalytic activity/Vol] 23 U/L 16-61 [facility] CO2 [Moles/Vol] 24.0 mmol/L 21.0-32.0 [facility] Urea nitrogen/Creatinine [Mass ratio] 11.7 mg/mg 10-20 [facility] No Panel InformationOrdered By: Geeta Chavez on 05-17-2023 Estimated GFR (MDRD) Amer 119 mL/min >60 [facility] Comment on above: GFR Calc Estimated GFR (MDRD) Non-Af Amer 98 mL/min >60 [facility] Comment on above: Non- GFR Calc Prostate Specific Antigen Screen 1.05 ng/mL 0.00-4.00 [facility] Comment on above: This test was perfor med using the TPSA assay method for [employer] chemistry system. Values obtained with differentassay methods cannot be used interchangably.When changing PSA assays in the course of monitoring apatient, additional sequential testing should be carriedout to confirm baseline values. Serum or plasma calcium ashli urement (mass/volume)Ordered By: Geeta Chavez on 05-17-2023 Calcium [Mass/Vol] 9.5 mg/dL 8.5-10.1 [facility] [place] Serum or plasma cholesterol in HDL measurement (mass/volume)Ordered By: Geeta Chavez on 05-17-2023 Cholesterol in HDL [Mass/Vol] 59 mg/dL >40 [facility] Comment on above: The drugs N-Acetylcy steine and Metamizole may falsely depress this assay. Reference Range HDL <40 mg/dL Low HDL Cholesterol HDL >or= 60 mg/dL High HDL Cholesterol Serum or plasma cholesterol in VLDL measurement (mass/volume)Ordered By: Geeta Chavez on 05-17-2023 Cholesterol in VLDL [Mass/Vol] 26 mg/dL 5-40 [facility] Serum or plasma creatinine m easurement (mass/volume)Ordered By: Geeta Chavez on 05-17-2023 Creatinine [Mass/Vol] 0.86 mg/dL 0.70-1.30 [facility] Comment on above: The validity of the calculated GFR & GFRAA in patients over 70 years has not been determined. Clinical correlation is essential. Serum or plasma low density lipoprotein (LDL) cholesterol measurement (mass/volume)Ordered By: Geeta Chavez on 05-17-2023 Cholesterol in LDL [Mass/Vol] 53 mg/dL 0-130 [facility] Serum or plasma urea nitroge n measurement (mass/volume)Ordered By: Geeta Chavez on 05-17-2023 Urea nitrogen [Mass/Vol] 10 mg/dL 7-18 [facility] Thin prep Papanicolaou smear with manual screeningOrdered By: Geeta Chavez on 05-17-2023 Thin prep Papanicolaou smear with manual screening 14 U/L 15-37 [facility] Thin prep Papanicolaou smear with manual screening 10 5-15 [facility] Basophil percentageon 2021 Chloride [Moles/Vol] 105 mmol/L 98-107 [facility] Work Phone: Cholesterol [Mass/Vol] 129 mg/dL <200 [facility] Work Phone: Comment on above: <200 mg/dL Desirable 200-240 mg/dL Borderline >240 mg/dL High Risk Glucose [Mass/Vol] 102 mg/dL 74-106 [facility] [place] Work Phone: Comment on above: Fasting Glucose resu lt from 100 to 125 mg/dL suggests IMPAIRED HOMEOSTASIS per A.D.A. criteria. Potassium [Moles/Vol] 4.1 mmol/L 3.5-5.1 [facility] Work Phone: Sodium [Moles/Vol] 138 mmol/L 136-145 [facility] [place] Work Phone: Triglyceride [Mass/Vol] 97 mg/dL <199 [facility] Work Phone: Comment on above: The drugs N-Acetylcy steine and Metamizole may falsely depress this assay.Serum Triglycerides Reference Interval Normal <150 mg/dL Borderline high 150 - 199 mg/dL High 200 - 499 mg/dL Very High > or = 500 mg/dL Laboratory - Chemistry and C hemistry - challengeon 04-26-2022 CO2 [Moles/Vol] 26.0 mmol/L 21.0-32.0 [facility] Work Phone: Urea nitrogen/Creatinine [Mass ratio] 20.5 mg/mg 10-20 [facility] Work Phone: No Panel Informationon 04-26 Estimated GFR (MDRD) Amer 87 mL/min >60 [facility] Work Phone: Comment on above: GFR Calc Estimated GFR (MDRD) Non-Af Amer 72 mL/min >60 [facility] Work Phone: Comment on above: Non- GFR Calc Urine Microalbumin/Creatinin e Ratio 5.6 mg/g CRE <30 [facility] Work Phone: Serum or plasma calcium ashli urement (mass/volume)on 04-26-2022 Calcium [Mass/Vol] 9.8 mg/dL 8.5-10.1 [facility] [place] Work Phone: Serum or plasma cholesterol in HDL measurement (mass/volume)on 04-26-2022 Cholesterol in HDL [Mass/Vol] 43 mg/dL >40 [facility] Work Phone: Comment on above: The drugs N-Acetylcy steine and Metamizole may falsely depress this assay. Reference Range HDL <40 mg/dL Low HDL Cholesterol HDL >or= 60 mg/dL High HDL Cholesterol Serum or plasma cholesterol in VLDL measurement (mass/volume)on 04-26-2022 Cholesterol in VLDL [Mass/Vol] 19 mg/dL 5-40 [facility] Work Phone: Serum or plasma creatinine m easurement (mass/volume)on 04-26-2022 Creatinine [Mass/Vol] 1.12 mg/dL 0.70-1.30 [facility] Work Phone: Comment on above: The validity of the calculated GFR & GFRAA in patients over 70 years has not been determined. Clinical correlation is essential. Serum or plasma low density lipoprotein (LDL) cholesterol measurement (mass/volume)on 04-26-2022 Cholesterol in LDL [Mass/Vol] 67 mg/dL 0-130 [facility] Work Phone: Serum or plasma urea nitroge n measurement (mass/volume)on 04-26-2022 Urea nitrogen [Mass/Vol] 23 mg/dL 7-18 [facility] Work Phone: Thin prep Papanicolaou smear with manual screeningon 04-26-2022 Thin prep Papanicolaou smear with manual screening 7 5-15 [facility] Work Phone: Thin prep Papanicolaou smear with manual screening 6.7 mg/L NO RANGE EST. [facility] Work Phone: Urine creatinine measurement (mass/volume)on 04-26-2022 Creatinine (U) [Mass/Vol] 119.00 mg/dL NO RANGE EST. [facility] Work Phone: ANES Domenica 07-23-2019 ANES POST HNO ID: [id number] Author: David Salazar Service: Anesthesiology Author Type: Anesthesiologist Type: Anesthesia PostOp Filed: 07/23/2019 2:39 PM Note Text: POST ANESTHESIA EVALUATION NOTE SERVICE DATE: 07/23/2019 SERVICE TIME: 2:39 PM : 1965 Vitals: 07/23/19 0915 07/23/19 1233 Temp: 36.7 ?C (98.1 ?F) 37.5 ?C (99.5 ?F) 07/23/19 1300 07/23/19 1315 07/23/19 1330 07/23/19 1345 BP: 125/72 137/84 145/81 134/82 07/23/19 1300 07/23/19 1315 07/23/19 1330 07/23/19 1345 Pulse: (!) 59 62 62 81 07/23/19 1300 07/23/19 1315 07/23/19 1330 07/23/19 1345 Resp: 11 17 14 12 07/23/19 1300 07/23/19 1315 07/23/19 1330 07/23/19 1345 SpO2: 96% 97% 98% 99% Validated Vital Signs: Yes POST ANES STATUS: No apparent anesthetic complications. The patient is appropriately hydrated with stable respiratory and cardiovascular status. Patient has safe and adequate airway control. The patient has appropriate pain relief and no significant post operative nausea or vomiting. The patient has achieved baseline mental status. Further assessment by Anesthesia Service: None Other Remarks: SIGNATURE: David Salazar MD PATIENT NAME: Cesario Mg DATE: July 23, 2019 TIME: 2:39 PM PAGER/CONTACT #: [phone] [facility] ANES PREOPon 07-23-2019 ANES PREOP HNO ID: [id number] Author: David Salazar Service: Anesthesiology Author Type: Anesthesiologist Type: Anesthesia PreOp Filed: 07/23/2019 10:15 AM Note Text: ANESTHESIOLOGY DAY OF SURGERY NOTE SERVICE DATE: 07/23/2019 SERVICE TIME: 10:14 AM : 1965 Procedure(s) (LRB): HERNIORRHAPHY INGUINAL INITIAL HERNIA >5 YRS REDUCIBLE (ELECTIVE) (Left) Surgeon(s): Warren Porter Estimated body mass index is 21.2 kg/m? as calculated from the following: Height as of this encounter: 180.3 cm (5' 11). Weight as of this encounter: 68.9 kg (152 lb). Most recent hematocrit and potassium results: Hematocrit 41.7 07/18/2019 Potassium 3.8 07/18/2019 ANES DOS/PREOP NOTE: Vitals: 07/23/19 0915 BP: 141/90 Pulse: 92 Resp: 16 Temp: 36.7 ?C (98.1 ?F) SpO2: 97% Weight: 68.9 kg (152 lb) Height: 180.3 cm (5' 11) ACTIVE PROBLEM LIST Essential Hypertension Mixed Hyperlipidemia Nuha (Obstructive Sleep Apnea) Former Smoker Etoh Abuse Anxiety Inguinal Hernia Without Obstruction Or Gangrene PAST MEDICAL HISTORY Diagnosis Date - Alcohol abuse - Allergic rhinitis - Anxiety - HTN (hypertension) - Hyperlipidemia - Sleep apnea PAST SURGICAL HISTORY Procedure Laterality Date - COLONOSCOPY 11/2017 6 yr - REPAIR ING HERNIA,5+Y/O,REDUCIBL 03/07/2019 Hernia repair, inguinal - REPAIR UMBILICAL HERNIA 03/2018 FAMILY HISTORY Problem Relation Age of Onset - Diabetes Mother - Diabetes Brother - Diabetes Maternal Grandmother - Diabetes Maternal Grandfather - other (MVA) Father Social History: Social History Tobacco Use - Smoking status: Former Smoker - Smokeless tobacco: Current User Types: Chew - Tobacco comment: 1-1/2 cans / day Substance Use Topics - Alcohol use: Yes Alcohol/week: 20.0 - 25.0 standard drinks Types: 8 - 10 Cans of Beer (12oz) per week Comment: 56-70 beers/week - Drug use: Yes Types: Marijuana Comment: occassional No current facility-administered medications on file prior to encounter. Current Outpatient Medications on File Prior to Encounter Medication Sig - citalopram (CELEXA) 20 mg tablet Take 20 mg by mouth once daily. - lisinopril-hydrochlor othiazide (PRINZIDE, ZESTORETIC) 20-25 mg per tablet Take 1 tablet by mouth once daily. - rosuvastatin (CRESTOR) 40 mg tablet Take 40 mg by mouth once daily. - amLODIPine (NORVASC) 5 mg tablet Take 5 mg by mouth once daily. - naltrexone HCl (NALTREXONE ORAL) Take by mouth. - thiamine (VITAMIN B1) 100 mg tablet Take 100 mg by mouth once daily. - ZINC ORAL Take by mouth. - ascorbic acid, vitamin C, 500 mg cap Take by mouth. - MULTI-VITAMIN ORAL Take by mouth. - POTASSIUM GLUCONATE ORAL Take by mouth. - cyanocobalamin (VITAMIN B-12) 1,000 mcg tab Take 1,000 mcg by mouth once daily. - fluticasone (ALLERGY RELIEF, FLUTICASONE,) 50 mcg/actuation nasal spray Use 1 [place] in each nostril once daily. - Lysine 1,000 mg tab Take by mouth. Current Facility-Administered Medications Medication Dose Route Frequency Provider Last Rate Last Dose - lactated ringers infusion 30 mL/hr INTRAVENOUS CONTINUOUS Warren Farrellan 30 mL/hr at 07/23/19 0925 30 mL/hr at 07/23/19 0925 - ceFAZolin iv piggyback 2 g in D5W (iso-osmotic) 100 mL (ANCEF) 2 g INTRAVENOUS Pre-Op Once Warren Alexia Farrellan Allergies: ALLERGIES No Known Allergies DOS EXAM: Adequate NPO status: Yes Anesthetic risks, benefits, alternatives, personnel and consent discussed: Yes Patient agrees to proceed: Yes Previous Anesthesia: No history of adverse event. Airway Assessment: MP 2; Neck ROM: Full ROM without neurologic symptoms; Airway Evaluation: No significant abnormalities Symptoms of Sleep Apnea: None Dentition: Teeth intact Additional Physical Exam: Lungs: Patient health status unchanged since recent history and physical. See history and physical for exam findings. Cardiac: Patient health status unchanged since recent history and physical. See history and physical for exam findings. Additional Pertinent Findings: N/A Blood Products: Not anticipated for this procedure. Anesthetic Plan: MAC with Sedation Pain Management Plan: Parenteral or Oral ASA Class: 3 Other Medical Problems: etoh I have interviewed and examined the patient. I have reviewed the medical record and/or the pre-anesthesia evaluation, pertinent labs, and test results. Significant changes in the patient's condition since the History and Physical, not otherwise documented in primary service progress notes: No This contains updated information obtained within 48 hours of Surgery/Procedure. SIGNATURE: David Salazar MD PATIENT NAME: Cesario Mg DATE: July 23, 2019 TIME: 10:14 AM CSN: [id number] [facility] BRIEF OP NOTon 07-23-2019 BRIEF OP NOT HNO ID: [id number] Author: Warren Porter Service: General Surgery Author Type: Physician Type: Brief Op Note Filed: 07/23/2019 12:32 PM Note Text: BRIEF OPERATIVE NOTATION FOR SURGICAL PROCEDURE. Cesario Mg 1965 [id number] male LOG ID: [id number] Surgery/Procedure Date: 07/23/2019 Incision/Procedure Start Time: 11:25 AM Incision Close/Procedure End Time: 12:27 PM Surgeon(s)/Procedural ist(s) and Four Slide Machine Setter(s): Surgeon(s) and Role: * Warren Porter - Primary Physician Four Slide Machine Setter: Dorothy Osorio (Pa) REFERRING PHYSICIAN: Outpatient DEPT: [facility] PROVIDER: Jeffrey POS: [id number] ANESTHESIA: Monitored Anesthesia Care ASA CLASS: 3 - Severe DIAGNOSIS: left inguinal hernia PROCEDURE: open left inguinal hernia repair with mesh - [id number] IVF: 1000 EBL: 10 Specimens: hernia sac ADDITIONAL DIAGNOSES: FINDINGS: indirect hernia COMPLICATIONS: None PMHx - PAST MEDICAL HISTORY Diagnosis Date - Alcohol abuse - Allergic rhinitis - Anxiety - HTN (hypertension) - Hyperlipidemia - Sleep apnea COMORBIDITIES - Chronic Alcohol Abuse and HTN Post Op Occurrences - None Wound Classification - Clean Operative note dictated in the dictation system. - [id number] Warren Porter MD [facility] HISTORY PHYSICALon 9 HISTORY PHYSICAL HNO ID: [id number] Author: Warren Porter Service: General Surgery Author Type: Physician Type: HANDP Filed: 07/23/2019 9:02 AM Note Text: HISTORY AND PHYSICAL ? Cesario Mg 1965 ? ? REFERRING PHYSICIAN: Irvin, ? CHIEF COMPLAINT: Post Op (Post op Hernia) ? HPI: Cesario is a 53 year old male with a complaint of a bulge and discomfort in his left inguinal region. The patient notes discomfort in this area with lifting, coughing and moving. The symptoms have increased, over the past few weeks. He notes a sloshing sound when the hernia is bulging out. ? I performed a right inguinal hernia repair on Tuesday, March 07, 2019. The patient had a history of hypertension, anxiety, sleep apnea and previous alcohol abuse.his outpatient medicines were listed as Celexa, lisinopril hydrochlorothiazide, Crestor, Norvasc, naltrexone, fluticasone, multivitamins, he has no listed allergies. ? The patient underwent an open right inguinal hernia repair under monitored anesthetic care-local sedation. The patient was found to have both a direct and indirect defect. this was repaired using a mesh plug technique using a medium-sized plug placed in the internal ring. Surgery was uneventful. That evening, the patient's called noting he was bleeding from the right inguinal incision. The patient was instructed to hold pressure on the site. The next morning, the patient noted significant bruising with some swelling in the inguinal region the upper thigh and hemiscrotum. he presented to [facility] emergency department and was discharged with instructions contact me. I visited the patient for a house call and found significant bruising without signs of recurrence or other difficulties beyond superficial hematoma/bruise. ? The patient's and patient again contacted me this morning saying for the last couple days he is felt somewhat dizzy. He's had a poor appetite. This morning he had near syncopal episodes and fell down twice. I recommended to present to [facility] emergency department. I contacted the emergency department to inform that he would be on his way. I asked that they obtain a CT scan of the abdomen given his recent surgical history and postoperative bruising. ? He states overall he is at a relatively poor appetite. He did note a bowel movement today. Laboratory studies demonstrate a slightly low white blood cell count.hemoglobin is 12.4. Sodium was seen apparently low at 123 with a potassium of 3.1 and a chloride of 83. BUN and creatinine are 10 and 0.8. Urinalysis is currently pending. CT scan of the abdomen demonstrated the right inguinal hematoma and air in the subcutaneous tissues compatible with his recent hernia. No other specific abnormalities or extending hematoma retroperitoneally were noted. ? ? The patient currently notes his breathing is starting to resolve but he notes increased swelling just below the incision. his appetite has been good. he denies fever, chills or abdominal pain. he does note some improving incisional discomfort. he notes no bulges at the operative site with coughing or straining. ? VITALS: There were no vitals taken for this visit. ? On examination, the abdomen is benign. The incision is healing well without signs of infection or inflammation. There are no signs of recurrent hernia formation. There is bruising on the thigh inguinal area and hemiscrotum which are starting to resolve. There is more protuberance right below the incision with some redness but no induration or fluctuance. ? The patient notes no symptoms of bowel obstruction and denies nausea or vomiting. ? PAST MEDICAL HISTORY PAST MEDICAL HISTORY Diagnosis Date - Alcohol abuse ? - Allergic rhinitis ? - Anxiety ? - HTN (hypertension) ? - Hyperlipidemia ? - Sleep apnea ? ? ? PAST SURGICAL HISTORY PAST SURGICAL HISTORY Procedure Laterality Date - COLONOSCOPY ? 11/2017 ? 6 yr - REPAIR ING HERNIA,5+Y/O,REDUCIBL ? 03/07/2019 ? Hernia repair, inguinal - REPAIR UMBILICAL HERNIA ? 03/2018 ? Current Outpatient Medications: citalopram (CELEXA) 20 mg tablet Take 20 mg by mouth once daily. lisinopril-hydrochlor othiazide (PRINZIDE, ZESTORETIC) 20-25 mg per tablet Take 1 tablet by mouth once daily. rosuvastatin (CRESTOR) 40 mg tablet Take 40 mg by mouth once daily. amLODIPine (NORVASC) 5 mg tablet Take 5 mg by mouth once daily. naltrexone HCl (NALTREXONE ORAL) Take by mouth. thiamine (VITAMIN B1) 100 mg tablet Take 100 mg by mouth once daily. fluticasone (ALLERGY RELIEF, FLUTICASONE,) 50 mcg/actuation nasal spray Use 1 Henderson in each nostril once daily. ZINC ORAL Take by mouth. ascorbic acid, vitamin C, 500 mg cap Take by mouth. MULTI-VITAMIN ORAL Take by mouth. POTASSIUM GLUCONATE ORAL Take by mouth. Lysine 1,000 mg tab Take by mouth. cyanocobalamin (VITAMIN B-12) 1,000 mcg tab Take 1,000 mcg by mouth once daily. cephALEXin (KEFLEX) 500 mg capsule Take 1 capsule by mouth four times daily. ? No current facility-administered medications for this visit. ? ALLERGIES: Patient has no known allergies. ? PERSONAL HISTORY: Social History Socioeconomic History Marital status: Single Spouse name: Not on file Number of children: Not on file Years of education: Not on file Highest education level: Not on file Occupational History Not on file Social Needs Financial resource strain: Not on file Food insecurity: Worry: Not on file Inability: Not on file Transportation needs: Medical: Not on file Non-medical: Not on file Tobacco Use Smoking status: Former Smoker Smokeless tobacco: Current User Types: Chew Tobacco comment: 1-1/2 cans / day Substance and Sexual Activity Alcohol use: Yes Alcohol/week: 20.0 - 25.0 standard drinks Types: 8 - 10 Cans of Beer (12oz) per week Comment: 56-70 beers/week Drug use: Yes Types: Marijuana Comment: occassional Sexual activity: Not on file Lifestyle Physical activity: Days per week: Not on file Minutes per session: Not on file Stress: Not on file Relationships Social connections: Talks on phone: Not on file Gets together: Not on file Attends jewish service: Not on file Active member of club or organization: Not on file Attends meetings of clubs or organizations: Not on file Relationship status: Not on file Intimate partner violence: Fear of current or ex partner: Not on file Emotionally abused: Not on file Physically abused: Not on file Forced sexual activity: Not on file Other Topics Concerns: Not on file Social History Narrative Not on file ? FAMILY HISTORY: FAMILY HISTORY FAMILY HISTORY Problem Relation Age of Onset - Diabetes Mother ? - Diabetes Brother ? - Diabetes Maternal Grandmother ? - Diabetes Maternal Grandfather ? - other (MVA) Father ? ? ? REVIEW OF SYMPTOMS: The review of systems data was entered by the nurse and reviewed by me ? There are no exam notes on file for this visit. ? PHYSICAL EXAMINATION: ? General: The patient is 53 year old male, well nourished, well hydrated in no acute distress. The patient is oriented to time, place, and person. ? VITALS: Blood pressure 140/76, pulse 88. There is no height or weight on file to calculate BMI. ? HEENT: Normal cephalic, ataumatic, pupils are equally round, sclera are anicteric, mucous membranes are moist, oropharynx is clear. Neck has no masses, asymmetry or lymphadenopathy. Thyroid is unremarkable. ? Respiratory: Clear to auscultation and percussion. Normal respiratory excursion and pattern. ? Cardiac: Examination is regular rate and rhythm. ? Abdominal exam: Soft, nontender, with no palpable masses. No hepatosplenomegaly. A small, reducible left inguinal hernia, no right inguinal or umbilical hernias are noted ? Rectal exam: exam deferred ? Extremities: no clubbing, cyanosis or edema. No adenopathy. ? Other: ? ? LABORATORY VALUES: As Noted ? RADIOLOGIC STUDIES: As Noted ? Assessment IMPRESSION: left inguinal hernia ? PLAN: My plan is to perform a open left inguinal hernia repair with mesh. The planned surgical procedure was discussed extensively with the patient. The risks, benefits, anticipated outcomes and possible complications were mentioned. Cesario undersands that all hernia repair surgery has a chance of recurrence and/or chronic post operative pain. My staff has also explained the procedure in understandable terms and the patient was given the option to take printed material concerning the planned procedure. The patient had the opportunity to ask questions concerning the planned procedure. The patient freely consents to the planned procedure. ? Diagnoses: (K40.90) Inguinal hernia of left side without obstruction or gangrene (primary encounter diagnosis) ? Anticipated CPT Code: open left inguinal hernia repair with mesh - 15547-875 ? Anticipated Anesthetic: MAC with local ? Patient weight: Blood pressure 140/76, pulse 88. BMI: There is no height or weight on file to calculate BMI. ? Planned antibiotic: Ancef 2gm IVPB soil conservation aide to OR ? SCDs needed - Yes Return to Clinic: The patient is instructed to follow-up with me 1 week post operatively. ? Warren Porter MD HISTORY AND PHYSICAL ? Cesario Mcdowellabisai 1965 ? ? REFERRING PHYSICIAN: MD Irvin ? CHIEF COMPLAINT: Post Op (Post op Hernia) ? HPI: Cesario is a 53 year old male with a complaint of a bulge and discomfort in his left inguinal region. The patient notes discomfort in this area with lifting, coughing and moving. The symptoms have increased, over the past few weeks. He notes a sloshing sound when the hernia is bulging out. ? I performed a right inguinal hernia repair on Thursday, March 07, 2019. The patient had a history of hypertension, anxiety, sleep apnea and previous alcohol abuse.his outpatient medicines were listed as Celexa, lisinopril hydrochlorothiazide, Crestor, Norvasc, naltrexone, fluticasone, multivitamins, he has no listed allergies. ? The patient underwent an open right inguinal hernia repair under monitored anesthetic care-local sedation. The patient was found to have both a direct and indirect defect. this was repaired using a mesh plug technique using a medium-sized plug placed in the internal ring. Surgery was uneventful. That evening, the patient's called noting he was bleeding from the right inguinal incision. The patient was instructed to hold pressure on the site. The next morning, the patient noted significant bruising with some swelling in the inguinal region the upper thigh and hemiscrotum. he presented to [facility] emergency department and was discharged with instructions contact me. I visited the patient for a house call and found significant bruising without signs of recurrence or other difficulties beyond superficial hematoma/bruise. ? The patient's and patient again contacted me this morning saying for the last couple days he is felt somewhat dizzy. He's had a poor appetite. This morning he had near syncopal episodes and fell down twice. I recommended to present to [facility] emergency department. I contacted the emergency department to inform that he would be on his way. I asked that they obtain a CT scan of the abdomen given his recent surgical history and postoperative bruising. ? He states overall he is at a relatively poor appetite. He did note a bowel movement today. Laboratory studies demonstrate a slightly low white blood cell count.hemoglobin is 12.4. Sodium was seen apparently low at 123 with a potassium of 3.1 and a chloride of 83. BUN and creatinine are 10 and 0.8. Urinalysis is currently pending. CT scan of the abdomen demonstrated the right inguinal hematoma and air in the subcutaneous tissues compatible with his recent hernia. No other specific abnormalities or extending hematoma retroperitoneally were noted. ? ? The patient currently notes his breathing is starting to resolve but he notes increased swelling just below the incision. his appetite has been good. he denies fever, chills or abdominal pain. he does note some improving incisional discomfort. he notes no bulges at the operative site with coughing or straining. ? VITALS: There were no vitals taken for this visit. ? On examination, the abdomen is benign. The incision is healing well without signs of infection or inflammation. There are no signs of recurrent hernia formation. There is bruising on the thigh inguinal area and hemiscrotum which are starting to resolve. There is more protuberance right below the incision with some redness but no induration or fluctuance. ? The patient notes no symptoms of bowel obstruction and denies nausea or vomiting. ? PAST MEDICAL HISTORY PAST MEDICAL HISTORY Diagnosis Date - Alcohol abuse ? - Allergic rhinitis ? - Anxiety ? - HTN (hypertension) ? - Hyperlipidemia ? - Sleep apnea ? ? ? PAST SURGICAL HISTORY PAST SURGICAL HISTORY Procedure Laterality Date - COLONOSCOPY ? 11/2017 ? 5 yr - REPAIR ING HERNIA,5+Y/O,REDUCIBL ? 03/07/2019 ? Hernia repair, inguinal - REPAIR UMBILICAL HERNIA ? 03/2018 ? Current Outpatient Medications: citalopram (CELEXA) 20 mg tablet Take 20 mg by mouth once daily. lisinopril-hydrochlor othiazide (PRINZIDE, ZESTORETIC) 20-25 mg per tablet Take 1 tablet by mouth once daily. rosuvastatin (CRESTOR) 40 mg tablet Take 40 mg by mouth once daily. amLODIPine (NORVASC) 5 mg tablet Take 5 mg by mouth once daily. naltrexone HCl (NALTREXONE ORAL) Take by mouth. thiamine (VITAMIN B1) 100 mg tablet Take 100 mg by mouth once daily. fluticasone (ALLERGY RELIEF, FLUTICASONE,) 50 mcg/actuation nasal spray Use 1 Henderson in each nostril once daily. ZINC ORAL Take by mouth. ascorbic acid, vitamin C, 500 mg cap Take by mouth. MULTI-VITAMIN ORAL Take by mouth. POTASSIUM GLUCONATE ORAL Take by mouth. Lysine 1,000 mg tab Take by mouth. cyanocobalamin (VITAMIN B-12) 1,000 mcg tab Take 1,000 mcg by mouth once daily. cephALEXin (KEFLEX) 500 mg capsule Take 1 capsule by mouth four times daily. ? No current facility-administered medications for this visit. ? ALLERGIES: Patient has no known allergies. ? PERSONAL HISTORY: Social History Socioeconomic History Marital status: Single Spouse name: Not on file Number of children: Not on file Years of education: Not on file Highest education level: Not on file Occupational History Not on file Social Needs Financial resource strain: Not on file Food insecurity: Worry: Not on file Inability: Not on file Transportation needs: Medical: Not on file Non-medical: Not on file Tobacco Use Smoking status: Former Smoker Smokeless tobacco: Current User Types: Chew Tobacco comment: 1-1/2 cans / day Substance and Sexual Activity Alcohol use: Yes Alcohol/week: 20.0 - 25.0 standard drinks Types: 8 - 10 Cans of Beer (12oz) per week Comment: 56-70 beers/week Drug use: Yes Types: Marijuana Comment: occassional Sexual activity: Not on file Lifestyle Physical activity: Days per week: Not on file Minutes per session: Not on file Stress: Not on file Relationships Social connections: Talks on phone: Not on file Gets together: Not on file Attends jewish service: Not on file Active member of club or organization: Not on file Attends meetings of clubs or organizations: Not on file Relationship status: Not on file Intimate partner violence: Fear of current or ex partner: Not on file Emotionally abused: Not on file Physically abused: Not on file Forced sexual activity: Not on file Other Topics Concerns: Not on file Social History Narrative Not on file ? FAMILY HISTORY: FAMILY HISTORY FAMILY HISTORY Problem Relation Age of Onset - Diabetes Mother ? - Diabetes Brother ? - Diabetes Maternal Grandmother ? - Diabetes Maternal Grandfather ? - other (MVA) Father ? ? ? REVIEW OF SYMPTOMS: The review of systems data was entered by the nurse and reviewed by me ? There are no exam notes on file for this visit. ? PHYSICAL EXAMINATION: ? General: The patient is 53 year old male, well nourished, well hydrated in no acute distress. The patient is oriented to time, place, and person. ? VITALS: Blood pressure 140/76, pulse 88. There is no height or weight on file to calculate BMI. ? HEENT: Normal cephalic, ataumatic, pupils are equally round, sclera are anicteric, mucous membranes are moist, oropharynx is clear. Neck has no masses, asymmetry or lymphadenopathy. Thyroid is unremarkable. ? Respiratory: Clear to auscultation and percussion. Normal respiratory excursion and pattern. ? Cardiac: Examination is regular rate and rhythm. ? Abdominal exam: Soft, nontender, with no palpable masses. No hepatosplenomegaly. A small, reducible left inguinal hernia, no right inguinal or umbilical hernias are noted ? Rectal exam: exam deferred ? Extremities: no clubbing, cyanosis or edema. No adenopathy. ? Other: ? ? LABORATORY VALUES: As Noted ? RADIOLOGIC STUDIES: As Noted ? Assessment IMPRESSION: left inguinal hernia ? PLAN: My plan is to perform a open left inguinal hernia repair with mesh. The planned surgical procedure was discussed extensively with the patient. The risks, benefits, anticipated outcomes and possible complications were mentioned. Cesario undersands that all hernia repair surgery has a chance of recurrence and/or chronic post operative pain. My staff has also explained the procedure in understandable terms and the patient was given the option to take printed material concerning the planned procedure. The patient had the opportunity to ask questions concerning the planned procedure. The patient freely consents to the planned procedure. ? Diagnoses: (K40.90) Inguinal hernia of left side without obstruction or gangrene (primary encounter diagnosis) ? Anticipated CPT Code: open left inguinal hernia repair with mesh - 70327-060 ? Anticipated Anesthetic: MAC with local ? Patient weight: Blood pressure 140/76, pulse 88. BMI: There is no height or weight on file to calculate BMI. ? Planned antibiotic: Ancef 2gm IVPB soil conservation aide to OR ? SCDs needed - Yes Return to Clinic: The patient is instructed to follow-up with me 1 week post operatively. ? Warren Porter MD [facility] NURSING PROGon 07-23-2019 NURSING PROG HNO ID: [id number] Author: Crystal (Rn) ARELY Celaya Service: Nursing Author Type: Registered Nurse Type: Nursing Progress Note Filed: 07/23/2019 2:41 PM Note Text: Nursing Progress Note Patient Name: Cesario Mg Patient Location: [place] Surgery/[place] Surgery 1356 Pt received in ASCU on cart from PACU. Snack given. This note was completed by: Crystal Celaya RN 1425 IV removed. Site without redness or swelling. Homegoing instructions given. Pt verbalizes understanding. Pt able to ambulate with steady gait. 1437 Pt discharged to home via wheelchair to car accomp by staff and family in stable cond. Normal [facility] NURSING PROG HNO ID: [id number] Author: Christin LopezRn) ARELY Bennett Service: Nursing Author Type: Registered Nurse Type: Nursing Progress Note Filed: 07/23/2019 2:02 PM Note Text: 1233 Received from or Oral airway in resp unlabored 1245 Airway removed resp unlabored No c/o pain Pt 's hands shakey 1330 Small amt bleeding on left groin bandage 1340 Up to br Steady when up Voided and pt states he had diarrhea Normal [facility] OPERATIVE NOon 07-23-2019 OPERATIVE NO HNO ID: [id number] Author: Warren Porter Service: General Surgery Author Type: Physician Type: Operative Report Filed: 07/24/2019 8:05 AM Note Text: [facility] - Operative Report CESARIO MG Jemal : 1965 AGE: 53. SEX: M PATIENT TYPE: [place] [facility] [place] [facility]ATION: [facility] ATTENDING PHYSICIAN: WARREN PORTER CSN NUMBER: [id number] DATE OF SURGERY/PROCEDURE: 07/23/2019 INCISION/PROCEDURE START TIME: 11:25. INCISION CLOSE/PROCEDURE END TIME: 12:27. PREOPERATIVE DIAGNOSIS: Left inguinal hernia. POSTOPERATIVE DIAGNOSIS: Indirect left inguinal hernia. SURGEON: Warren Porter M.D. DIRECTOR OF HOME CARE HOSPICE: Dorohty Osorio. SURGERY/PROCEDURE: Left inguinal hernia repair with mesh plug using Covidien medium- sized plug, reference #[id number], lot #[id number], expires 12/04/2023. ANESTHESIA: Monitored anesthesia care. LOG ID: #[id number]. ANESTHESIOLOGIST: David Salazar. ASA: 3. INTRAVENOUS FLUIDS: 1000 mL. ESTIMATED BLOOD LOSS: 10 mL. URINE OUTPUT: No catheter. FINDINGS: As above. SPECIMENS: Hernia sac. DRAINS: None. COMPLICATIONS: None. The patient taken to PACU in stable condition. DESCRIPTION OF PROCEDURE: Patient was marked in the holding area, and the patient confirmed that the left side was planned operative site. Sign-in was performed. Correct patient, site, procedure, position, critical nursing information, VTE, and antibiotic prophylaxis. The patient received 2 g of Ancef and sequential compression devices placed. Following IV sedation, the left inguinal region was prepped and draped in usual fashion. Time-out was performed verifying the patient's site of procedure and position. A 50:50 mixture of lidocaine and Marcaine injected into anterior iliac spine and then along the incision. Incision was made dissecting down subcutaneous fat, traversing veins were ligated with 3-0 Vicryl ties and divided. Dissection carried to the external oblique aponeurosis. Local anesthetic was injected in the canal. The fibers were opened up in the direction. The ilioinguinal nerve was identified, put over superior leaf and protected during the procedure. The spermatic cord was surrounded over the pubic tubercle and brought up in the operative field. There was no true direct defect noted. There was significant preperitoneal fat along with the cord and a moderate-sized chronic indirect hernia. The hernia sac was dissected off the spermatic cord, opened. There was a slight sliding component with sigmoid colon seen as the hernia sac was retracted, so the hernia sac was relaxed. Ligation of hernia sac was performed with a 0 Prolene suture and excess sac amputated. The lead point of a medium mesh plug was then placed in the preperitoneal space, secured with 2-0 Prolene sutures to the superior aspect of the ring and the ilioinguinal nerve inferiorly. Then the onlay mesh was secured to the pubic tubercle, run along the ilioinguinal nerve inferiorly using a 0 Prolene sutures into the transversus arch using a 0 Prolene suture. The mesh was notched medially to allow anatomic laying of the cord. The more preperitoneal splayed out fatty portion of the cord was reduced into the inguinal ring and the 2 tails of the mesh were wrapped around the spermatic cord creating a new internal ring closed with a running 0 Prolene suture such that the tip of the DeBakey passed along the cord structures without difficulty. The 2 tails were placed on superior lateral external oblique aponeurosis and the external oblique was closed with running 0 Vicryl suture. Subcutaneous fat/Burak was closed with a 3-0 Vicryl suture. Skin was closed with 4- 0 Monocryl running subcu suture, Steri-Strips dressing applied. The patient was taken to recovery room in stable condition. Warren Porter M.D. RG:[id number] /[id number] [facility] PLAN OF CAREon 07-23-2019 PLAN OF CARE HNO ID: [id number] Author: Natalie Mccloud ([employer]) Service: Pharmacy Author Type: ? Type: Plan of Care Filed: 07/23/2019 1:04 PM Note Text: [employer] BEDSIDE DELIVERY SURVEY 1. Patient to use [facility] Bedside Delivery - YES Insurance Information as follows: 2. Insurance card on file - YES 3. Credit card for payment - YES PHARMACY BEDSIDE DELIVERY SERVICE Patient Name: Cesario Mg The marked outpatient medications were Filled at: [facility] and delivered to the patient's bedside to pharm p/u Medication List START taking these medications oxyCODONE-acetaminoph en 5-325 mg tablet Commonly known as: PERCOCET Take 1 tablet by mouth every 4 hours as needed for Pain for up to 5 days. X CONTINUE taking these medications ALLERGY RELIEF (FLUTICASONE) 50 mcg/actuation nasal spray Generic drug: fluticasone amLODIPine 5 mg tablet Commonly known as: NORVASC ascorbic acid (vitamin C) 500 mg Cap citalopram 20 mg tablet Commonly known as: CeleXA cyanocobalamin 1,000 mcg Tab Commonly known as: VITAMIN B-12 lisinopril-hydrochlor othiazide 20-25 mg per tablet Commonly known as: PRINZIDE, ZESTORETIC Lysine 1,000 mg Tab MULTI-VITAMIN ORAL NALTREXONE ORAL POTASSIUM GLUCONATE ORAL rosuvastatin 40 mg tablet Commonly known as: CRESTOR thiamine 100 mg tablet Commonly known as: VITAMIN B1 ZINC ORAL You might also be taking other medications not listed above. If you have questions about any of your other medications, talk to the person who prescribed them or your Primary Care Provider. Natalie Mccloud ([employer]) PAGER: [phone] July 23, 2019 1:03 PM [facility] PT EDon 07-23-2019 PT ED HNO ID: [id number] Author: Crystal LopezRn) ARELY Cleaya Service: Nursing Author Type: Registered Nurse Type: Patient Education Filed: 07/23/2019 2:39 PM Note Text: POST OP LEARNING RESPONSE INSTRUCTION PROVIDED TO: Patient and family member METHOD OF INSTRUCTION: Individual instruction Written instruction - handouts Verbal instruction PATIENT / FAMILY RESPONSE: Information received as demonstrated by interest and questions FOLLOW-UP PLAN: Patient instructed to call with any further issues SUPPLEMENTAL MATERIAL: Post op discharge instructions REFERRAL (RECOMMENDATION): None Electronically Signed By: Crystal Celaya RN In Department: [facility] SURGERY [facility] PT ED HNO ID: [id number] Author: Simeon (Rn) ARELY Giron Service: Nursing Author Type: Registered Nurse Type: Patient Education Filed: 07/23/2019 9:08 AM Note Text: PATIENT EDUCATION TOPIC: PROCEDURE / SURGERY: Pre-op Teaching: PATIENT NAME: Cesario Mg PATIENT LOCATION: [place] [facility] [facility] READINESS TO LEARN COGNITIVE ABILITY: Alert and oriented MOTIVATION TO LEARN: Interested FAMILY SUPPORT: Moderate - Family present but overwhelmed INSTRUCTION PROVIDED TO: Patient PATIENT LEARNS BEST BY: Individual Instruction Verbal Instruction FACTORS AFFECTING LEARNING: None PHYSICAL LIMITATIONS AFFECTING LEARNING: None LEARNING RESPONSE DIAGNOSIS: ADULT: PATIENT/FAMILY RESPONSE: Verbalizes understanding of: METHOD OF INSTRUCTION: Individual instruction Verbal instruction FOLLOW-UP PLAN: Patient instructed to call with any further issues Follow-up with Primary Care INSTRUCTIONAL AIDS USED: NA SUPPLEMENTAL MATERIAL PROVIDED TO PATIENT: None REFERRAL (RECOMMENDATION): None Electronically Signed By: Simeon Giron RN [facility] SURGICAL PATHOLOGYon 019 SURGICAL PATHOLOGY Specimen originated from [facility] Specimen #: [id number] Submitting Physician: WARREN PORTER MD FINAL DIAGNOSIS Soft tissue, left inguinal canal, herniorrhaphy - Hernia sac. PIAB/[place]/yung/07/25/19 Pierre Tejada M.D. (Electronic Signature) ____ SPECIMEN SUBMITTED A: HERNIA SAC CLINICAL DATA LEFT INGUINAL HERNIA; LEFT INGUINAL HERNIA REPAIR GROSS DESCRIPTION A. Received in formalin labeled hernia sac is a 2.8 x 1 x 0.2 cm aggregate of vences-purple irregular fibromembranous soft tissue. No nodules or lesions are identified. The specimen is entirely submitted in one cassette. NE/yung/07/23/19 [place] [address] Date of Report: 07/25/2019 Date of Procedure: 07/23/2019 Date of Receipt: 07/23/2019 Submitted by: WARREN PORTER MD Location: [facility] Diagnostic interpretation performed at [place] [address]. CLIA Number: [id number] [facility] NURSING PROGon 07-19-2019 NURSING PROG HNO ID: [id number] Author: Lindsey (Rn) ARELY Lyle Service: ? Author Type: Registered Nurse Type: Nursing Progress Note Filed: 07/19/2019 8:12 AM Note Text: PACC Nurse Progress Note History AND Physical: PACC Visit Date: 07/18/19 Original HANDP Date: N/A ED visit Date: N/A Outside HANDP Scanned Date: N/A Labs Within Last 6 Months: CBC: Date 07/18/19 - Abs Lymph 0.93 BMP/CMP: Date 07/18/19 - glucose 123, Bun 8, Sodium 133, Cl 90 Imaging Within Last 12 Months: N/A Cardiac Testing: EKG in last 12 Months: Yes: Date: 08/25/18, Comment: scanned results BMI Percentile (PEDS): N/A Risk Assessment: N/A Anesthesia Review: Below copied from PACC HANDP - Emailed sent to anesthesia regarding ETOH abuse. ? Narrative: N/A Pre-op Considerations: NUHA Marijuana use per HANDP Chart Check: COMPLETED Lindsey Lyle RN July 19, 2019 8:09 AM [facility] Basic Metabolic Panlon 07-18 Anion gap [Moles/Vol] 14 mmol/L Normal -18 [facility] Calcium [Mass/Vol] 9.7 mg/dL Normal 8.5-10.2 [facility] Chloride [Moles/Vol] 90 mmol/L Low 97-105 [facility] CO2 [Moles/Vol] 29 mmol/L Normal 22-30 [facility] Creatinine [Mass/Vol] 0.94 mg/dL Normal 0.73-1.22 [facility] eGFR- Amer. >60 Normal [facility] GFR/1.73 sq M predicted among non-blacks MDRD (S/P/Bld) [Vol rate/Area] mL/min/{1.73_m2} Normal [facility] Comment on above: Result Comment: eGFR (Estimated GFR) Units of measure: mL/min/1.73 meters squared eGFR is derived from the reexpressed MDRD Study equation using the following parameters: serum creatinine, age, gender and race. The creatinine assay has been calibrated to be traceable to IDMS. An eGFR <60 mL/min/1.73m2 for >3 months is consistent with chronic kidney disease. Refer to KDOQI guidelines for clinical interpretation. In patients with unstable renal function, e.g. those with acute kidney injury, the eGFR may not accurately reflect actual GFR. Glucose [Mass/Vol] 123 mg/dL High 74-99 [facility] Comment on above: Result Comment: The [place] [employer] (ADA) provides guidance for cutoff values for fasting glucose and random glucose. The ADA defines fasting as no caloric intake for at least 8 hours. Fasting plasma glucose results between 100 to 125 mg/dL indicate increased risk for diabetes (prediabetes). Fasting plasma glucose results greater than or equal to 126 mg/dL meet the criteria for diagnosis of diabetes. In the absence of unequivocal hyperglycemia, results should be confirmed by repeat testing. In a patient with classic symptoms of hyperglycemia or hyperglycemic crisis, random plasma glucose results greater than or equal to 200 mg/dL meet the criteria for diagnosis of diabetes. Reference: Standards of Medical Care in Diabetes 2016, [place] [employer]. Diabetes Care. 2016.39(Suppl 1). Potassium [Moles/Vol] 3.8 mmol/L Normal 3.7-5.1 [facility] Sodium [Moles/Vol] 133 mmol/L Low 136-144 [facility] Urea nitrogen [Mass/Vol] 8 mg/dL Low 9-24 [facility] CBC and Differentialon 07-18 Abs Baso 0.04 k/uL Normal <0.11 [facility] Abs [place] 0.48 k/uL Normal <0.87 [facility] Abs Neut 2.35 k/uL Normal 1.45-7.50 [facility] Basophils/100 WBC (Bld) 1.0 % Normal [facility] Eosinophils (Bld) [#/Vol] 0.09 10*3/uL Normal <0.46 [facility] Eosinophils/100 WBC (Bld) 2.3 % Normal [facility] Erythrocyte distribution width (RBC) [Ratio] 13.7 % Normal 11.5-15.0 [facility] Hematocrit (Bld) [Volume fraction] 41.7 % Normal 39.0-51.0 [facility] Hemoglobin (Bld) [Mass/Vol] 14.0 g/dL Normal 13.0-17.0 [facility] Lymphocytes (Bld) [#/Vol] 0.93 10*3/uL Low 1.00-4.00 [facility] Lymphocytes/100 WBC (Bld) 23.9 % Normal [facility] MCH (RBC) [Entitic mass] 31.7 pG Normal 26.0-34.0 [facility] MCHC (RBC) [Mass/Vol] 33.6 g/dL Normal 30.5-36.0 [facility] MCV (RBC) [Entitic vol] 94.3 fL Normal 80.0-100.0 [facility] Monocytes/100 WBC (Bld) 12.3 % Normal [facility] Neutrophils/100 WBC (Bld) 60.5 % Normal [facility] Platelet mean volume (Bld) [Entitic vol] 10.4 fL Normal 9.0-12.7 [facility] Platelets (Bld) [#/Vol] 152 10*3/uL Normal 150-400 [facility] RBC (Bld) [#/Vol] 4.42 10*6/uL Normal 4.20-6.00 [facility] WBC (Bld) [#/Vol] 3.89 10*3/uL Normal 3.70-11.00 [facility] HISTORY PHYSICALon 9 HISTORY PHYSICAL HNO ID: [id number] Author: Shani Saldaña (Jessica Handley Service: ? Author Type: Nurse Practitioner Type: HANDP Filed: 07/18/2019 8:52 AM Note Text: HISTORY AND PHYSICAL EXAMINATION SERVICE DATE: 07/18/2019 SERVICE TIME: 8:26 AM PRIMARY CARE PHYSICIAN: No primary care provider on file. REASON FOR VISIT: Cesario Mg is a 53 year old male who is scheduled for HERNIORRHAPHY INGUINAL INITIAL HERNIA >5 YRS REDUCIBLE (ELECTIVE) at the request of Dr. Warren Porter for consultation. My final recommendation will be communicated back to the requesting physician by way of shared medical record or letter. The patient has the following: ACTIVE PROBLEM LIST Essential Hypertension Mixed Hyperlipidemia Nuha (Obstructive Sleep Apnea) Former Smoker Etoh Abuse Anxiety Inguinal Hernia Without Obstruction Or Gangrene Subjective CHIEF COMPLAINT: Pre-op exam: inguinal hernia HPI: Cesario is a 53 year old male with a complaint of a bulge and discomfort in his left inguinal region. The patient notes discomfort in this area with lifting, coughing and moving. The symptoms have increased, over the past few weeks. He notes a sloshing sound when the hernia is bulging out. ? He is s/p right inguinal hernia repair March 07, 2019. ? The patient underwent an open right inguinal hernia repair under monitored anesthetic care-local sedation. Surgery was uneventful. Pt did experience some dizziness and bleeding from the incision site after surgery but resolved and pt has has no issues since. PAST MEDICAL HISTORY Diagnosis Date - Alcohol abuse - Allergic rhinitis - Anxiety - HTN (hypertension) - Hyperlipidemia - Sleep apnea PAST SURGICAL HISTORY Procedure Laterality Date - COLONOSCOPY 11/2017 6 yr - REPAIR ING HERNIA,5+Y/O,REDUCIBL 03/07/2019 Hernia repair, inguinal - REPAIR UMBILICAL HERNIA 03/2018 FAMILY HISTORY Problem Relation Age of Onset - Diabetes Mother - Diabetes Brother - Diabetes Maternal Grandmother - Diabetes Maternal Grandfather - other (MVA) Father SOCIAL HISTORY: Social History Tobacco Use - Smoking status: Former Smoker - Smokeless tobacco: Current User Types: Chew - Tobacco comment: 1-1/2 cans / day Substance Use Topics - Alcohol use: Yes Alcohol/week: 20.0 - 25.0 standard drinks Types: 8 - 10 Cans of Beer (12oz) per week Comment: 56-70 beers/week - Drug use: Yes Types: Marijuana Comment: occassional MEDICATIONS: Prior to Admission medications as of 07/18/19 0825 Medication Sig Last Dose Taking citalopram (CELEXA) 20 mg tablet Take 20 mg by mouth once daily. Yes lisinopril-hydrochlor othiazide (PRINZIDE, ZESTORETIC) 20-25 mg per tablet Take 1 tablet by mouth once daily. Yes rosuvastatin (CRESTOR) 40 mg tablet Take 40 mg by mouth once daily. Yes amLODIPine (NORVASC) 5 mg tablet Take 5 mg by mouth once daily. Yes naltrexone HCl (NALTREXONE ORAL) Take by mouth. Yes thiamine (VITAMIN B1) 100 mg tablet Take 100 mg by mouth once daily. Yes fluticasone (ALLERGY RELIEF, FLUTICASONE,) 50 mcg/actuation nasal spray Use 1 Henderson in each nostril once daily. Yes ZINC ORAL Take by mouth. Yes ascorbic acid, vitamin C, 500 mg cap Take by mouth. Yes MULTI-VITAMIN ORAL Take by mouth. Yes POTASSIUM GLUCONATE ORAL Take by mouth. Yes Lysine 1,000 mg tab Take by mouth. Yes cyanocobalamin (VITAMIN B-12) 1,000 mcg tab Take 1,000 mcg by mouth once daily. Yes No medication comments found. CURRENT ALLERGIES: ALLERGIES No Known Allergies REVIEW OF SYSTEMS: PAIN ASSESSMENT: General: No weight loss, malaise or fevers. Neuro: No history of TIA's, stroke, TIME RECORDER tumor, impaired sensorium, hemiplegia, paraplegia or quadraplegia. No neurological symptoms or problems. Denies hx STONE/migraines. Denies numbness/tingling. Respiratory: No history of current cough or dyspnea, or pneumonia in the past 6 weeks. No history of respiratory/pulmonary symptoms or problems. +Former smoker, Denies asthma. +NUHA does not use CPAP. Seasonal allergies. Cardiovascular: Positive for: HLD, Hypertension, on rx, Negative for Recent [place], Arrhythmia, CAD, Chest Pain, CHF, PVD, Valvular Heart Disease, DVT/PE, LE edema or SOB GI: Positive for ETOH > 2 drinks / day ( > 2 12 oz cans of beer), History of polyps, SEE HPI, Negative for GERD, PUD, Nausea, Vomiting, Abdominal pain, Liver disease : No history of dysuria, frequency or incontinence,, stones or chronic kidney disease Endocrine: No history of diabetes. Has not taken steroids within the past 30 days. No history of endocrinological symptoms or problems. Hematology: No history of bleeding or clotting disorder. Pt is not taking anti-coagulation or platelet medications. No history of hematological symptoms or problems. Oncology: No history of CA metastasis, chemo within 30 days, or radiotherapy within 90 days. Has not lost 10% of body wt in 6 months. No history of oncological symptoms or problems. Psych: has been admitted previously for ETOH/detox 2015 +Anxiety, on rx Musculoskeletal: Negative for joint pain or swelling, back pain or muscle pain. Skin: Negative for lesions, rash and itching. Objective PHYSICAL EXAM: VITALS: BP 153/75 Pulse 102 Temp 98.6 Ht 5' 11 (1.80m) Wt 152 lb 6.4 oz (69.1kg) SpO2 96% BMI 21.26 kg/(m2). General: Alert and oriented Skin: Normal color, no rash, no lesions. HEENT: EOM, pupils equal, round and reactive. Cardiovascular: Normal S1 AND S2, no rubs, murmurs or gallops. No JVD. Pulse regular. Lungs: Normal breath sounds, no wheezes or crackles. Abdomen: Soft, non-tender, no rigidity. Extremities: No deformity, no edema or tenderness, no joint swelling or clubbing. Neurological: Normal cognition and motor skills. Pulses: Carotid and radial pulses normal +2. Diagnostic tests reviewed for today's visit: Lab Value Units Date High Low HB No results within date range. HCT No results within date range. WBC No results within date range. PLT No results within date range. NA No results within date range. K No results within date range. GLUC No results within date range. BUN No results within date range. CREAT No results within date range. PTSEC No results within date range. INR No results within date range. APTT No results within date range. ALT No results within date range. AST No results within date range. TBILI No results within date range. TSH No results within date range. Lab Value Units Date High Low HCGQT No results within date range. UHCG No results within date range. HCG, BODY* No results within date range. Lab Value Units Date High Low ABORHD No results within date range. ABSCREEN No results within date range. No results found for: HBA1C No new labs or tests Assessment/Plan Essential hypertension Assessment: controlled, on rx ? 07/18/19 0812 BP: 153/75 ? Mixed hyperlipidemia Assessment: on rx ? ? NUHA (obstructive sleep apnea) dAssessment: does not use CPAP ? ? Former smoker Assessment: still uses smokeless tobacco ? ? ETOH abuse Assessment: drinks 8-10 beers/night, states history in 2015 for hospitalization for detox. States drinking was >20 beers/night ? ? Anxiety Assessment: on rx ?METS: Climb a flight of stairs or walk up a hill (5.50 METs) Patient denies any chest pain or undue shortness of breath with the above physical activity. ? ASA Class: 3 ? ANESTHESIA FINDINGS: Intubation History: No history of difficult intubation Significant Anesthesia Considerations: None ? Airway Exam: General: Normal appearance Mallampati Score is CLASS II ULBT: Class II - Lower incisors can bite the upper lip below the samson line Neck: Normal appearance and function, Distance from hyoid to mentum during neck extension is at least 3 finger breaths Mouth: Normal tongue size Dentition: Intact Airway History: No abnormal airway history STOP BANG Score: NUHA does not use CPAP/BiPAP ? PLAN This patient is optimally prepared for surgery pending LABS. Emailed sent to anesthesia regarding ETOH abuse. CONSULTS: Patient does not require consults for optimization at this time. The Following Tests/Procedures Have Been Initiated: EKG not indicated per PACC protocol, CBC and BMP ordered previously asked pt to complete today Planned Anesthetic: Per anesthesia choice Instructions Given to Patient: Instructions located in the after visit summary. Patient given verbal and written preop instructions and voices comprehension and compliance. SIGNATURE: Shani Handley APRN.KATY PATIENT NAME: Cesario Mg DATE: July 18, 2019 TIME: 8:25 AM PAGER/CONTACT #: [facility] Mindy 06-21-2019 CNOV Office Visit (GENSWS ) CESARIO MG ([id number]) 1965 M Date Time Provider Department 06/21/19 9:40 AM WARREN PORTER During your visit today, we recorded the following information about you: Pulse Blood pressure 88/minute 140/76 Warren Porter MD 06/21/2019 1:01 PM Signed HISTORY AND PHYSICAL Cesario Mg 1965 REFERRING PHYSICIAN: MD Irvin CHIEF COMPLAINT: Post Op (Post op Hernia) HPI: Cesario is a 53 year old male with a complaint of a bulge and discomfort in his left inguinal region. The patient notes discomfort in this area with lifting, coughing and moving. The symptoms have increased, over the past few weeks. He notes a sloshing sound when the hernia is bulging out. I performed a right inguinal hernia repair on Tuesday, March 07, 2019. The patient had a history of hypertension, anxiety, sleep apnea and previous alcohol abuse.his outpatient medicines were listed as Celexa, lisinopril hydrochlorothiazide, Crestor, Norvasc, naltrexone, fluticasone, multivitamins, he has no listed allergies. The patient underwent an open right inguinal hernia repair under monitored anesthetic care-local sedation. The patient was found to have both a direct and indirect defect. this was repaired using a mesh plug technique using a medium-sized plug placed in the internal ring. Surgery was uneventful. That evening, the patient's called noting he was bleeding from the right inguinal incision. The patient was instructed to hold pressure on the site. The next morning, the patient noted significant bruising with some swelling in the inguinal region the upper thigh and hemiscrotum. he presented to [facility] emergency department and was discharged with instructions contact me. I visited the patient for a house call and found significant bruising without signs of recurrence or other difficulties beyond superficial hematoma/bruise. The patient's and patient again contacted me this morning saying for the last couple days he is felt somewhat dizzy. He's had a poor appetite. This morning he had near syncopal episodes and fell down twice. I recommended to present to [facility] emergency department. I contacted the emergency department to inform that he would be on his way. I asked that they obtain a CT scan of the abdomen given his recent surgical history and postoperative bruising. He states overall he is at a relatively poor appetite. He did note a bowel movement today. Laboratory studies demonstrate a slightly low white blood cell count.hemoglobin is 12.4. Sodium was seen apparently low at 123 with a potassium of 3.1 and a chloride of 83. BUN and creatinine are 10 and 0.8. Urinalysis is currently pending. CT scan of the abdomen demonstrated the right inguinal hematoma and air in the subcutaneous tissues compatible with his recent hernia. No other specific abnormalities or extending hematoma retroperitoneally were noted. The patient currently notes his breathing is starting to resolve but he notes increased swelling just below the incision. his appetite has been good. he denies fever, chills or abdominal pain. he does note some improving incisional discomfort. he notes no bulges at the operative site with coughing or straining. VITALS: There were no vitals taken for this visit. On examination, the abdomen is benign. The incision is healing well without signs of infection or inflammation. There are no signs of recurrent hernia formation. There is bruising on the thigh inguinal area and hemiscrotum which are starting to resolve. There is more protuberance right below the incision with some redness but no induration or fluctuance. The patient notes no symptoms of bowel obstruction and denies nausea or vomiting. PAST MEDICAL HISTORY Diagnosis Date - Alcohol abuse - Allergic rhinitis - Anxiety - HTN (hypertension) - Hyperlipidemia - Sleep apnea PAST SURGICAL HISTORY Procedure Laterality Date - COLONOSCOPY 11/2017 6 yr - REPAIR ING HERNIA,5+Y/O,REDUCIBL 03/07/2019 Hernia repair, inguinal - REPAIR UMBILICAL HERNIA 03/2018 Current Outpatient Medications: citalopram (CELEXA) 20 mg tablet Take 20 mg by mouth once daily. lisinopril-hydrochlor othiazide (PRINZIDE, ZESTORETIC) 20-25 mg per tablet Take 1 tablet by mouth once daily. rosuvastatin (CRESTOR) 40 mg tablet Take 40 mg by mouth once daily. amLODIPine (NORVASC) 5 mg tablet Take 5 mg by mouth once daily. naltrexone HCl (NALTREXONE ORAL) Take by mouth. thiamine (VITAMIN B1) 100 mg tablet Take 100 mg by mouth once daily. fluticasone (ALLERGY RELIEF, FLUTICASONE,) 50 mcg/actuation nasal spray Use 1 Henderson in each nostril once daily. ZINC ORAL Take by mouth. ascorbic acid, vitamin C, 500 mg cap Take by mouth. MULTI-VITAMIN ORAL Take by mouth. POTASSIUM GLUCONATE ORAL Take by mouth. Lysine 1,000 mg tab Take by mouth. cyanocobalamin (VITAMIN B-12) 1,000 mcg tab Take 1,000 mcg by mouth once daily. cephALEXin (KEFLEX) 500 mg capsule Take 1 capsule by mouth four times daily. No current facility-administered medications for this visit. ALLERGIES: Patient has no known allergies. PERSONAL HISTORY: Social History Socioeconomic History Marital status: Single Spouse name: Not on file Number of children: Not on file Years of education: Not on file Highest education level: Not on file Occupational History Not on file Social Needs Financial resource strain: Not on file Food insecurity: Worry: Not on file Inability: Not on file Transportation needs: Medical: Not on file Non-medical: Not on file Tobacco Use Smoking status: Former Smoker Smokeless tobacco: Current User Types: Chew Tobacco comment: 1-1/2 cans / day Substance and Sexual Activity Alcohol use: Yes Alcohol/week: 20.0 - 25.0 standard drinks Types: 8 - 10 Cans of Beer (12oz) per week Comment: 56-70 beers/week Drug use: Yes Types: Marijuana Comment: occassional Sexual activity: Not on file Lifestyle Physical activity: Days per week: Not on file Minutes per session: Not on file Stress: Not on file Relationships Social connections: Talks on phone: Not on file Gets together: Not on file Attends jewish service: Not on file Active member of club or organization: Not on file Attends meetings of clubs or organizations: Not on file Relationship status: Not on file Intimate partner violence: Fear of current or ex partner: Not on file Emotionally abused: Not on file Physically abused: Not on file Forced sexual activity: Not on file Other Topics Concerns: Not on file Social History Narrative Not on file FAMILY HISTORY: FAMILY HISTORY Problem Relation Age of Onset - Diabetes Mother - Diabetes Brother - Diabetes Maternal Grandmother - Diabetes Maternal Grandfather - other (MVA) Father REVIEW OF SYMPTOMS: The review of systems data was entered by the nurse and reviewed by me There are no exam notes on file for this visit. PHYSICAL EXAMINATION: General: The patient is 53 year old male, well nourished, well hydrated in no acute distress. The patient is oriented to time, place, and person. VITALS: Blood pressure 140/76, pulse 88. There is no height or weight on file to calculate BMI. HEENT: Normal cephalic, ataumatic, pupils are equally round, sclera are anicteric, mucous membranes are moist, oropharynx is clear. Neck has no masses, asymmetry or lymphadenopathy. Thyroid is unremarkable. Respiratory: Clear to auscultation and percussion. Normal respiratory excursion and pattern. Cardiac: Examination is regular rate and rhythm. Abdominal exam: Soft, nontender, with no palpable masses. No hepatosplenomegaly. A small, reducible left inguinal hernia, no right inguinal or umbilical hernias are noted Rectal exam: exam deferred Extremities: no clubbing, cyanosis or edema. No adenopathy. Other: LABORATORY VALUES: As Noted RADIOLOGIC STUDIES: As Noted Assessment IMPRESSION: left inguinal hernia PLAN: My plan is to perform a open left inguinal hernia repair with mesh. The planned surgical procedure was discussed extensively with the patient. The risks, benefits, anticipated outcomes and possible complications were mentioned. [facility] that all hernia repair surgery has a chance of recurrence and/or chronic post operative pain. My staff has also explained the procedure in understandable terms and the patient was given the option to take printed material concerning the planned procedure. The patient had the opportunity to ask questions concerning the planned procedure. The patient freely consents to the planned procedure. Diagnoses: (K40.90) Inguinal hernia of left side without obstruction or gangrene (primary encounter diagnosis) Anticipated CPT Code: open left inguinal hernia repair with mesh - [id number] Anticipated Anesthetic: MAC with local Patient weight: Blood pressure 140/76, pulse 88. BMI: There is no height or weight on file to calculate BMI. Planned antibiotic: Ancef 2gm IVPB soil conservation aide to OR SCDs needed - Yes Return to Clinic: The patient is instructed to follow-up with me 1 week post operatively. Warren Porter MD Referring Provider: SELF [[id number]] Allergies As of Date: 06/21/2019 (No Known Allergies) Date Reviewed: 06/21/2019 Reviewed by: Kasi Portillo LPN - Fully Assessed Reason for Visit: Post Op [174] Cmt: Post op Hernia Primary Visit Diagnosis:Inguinal hernia of left side without obstruction or gangrene [K40.90] Prescriptions as of 06/21/2019 Sig: CITALOPRAM 20 MG TABLET Take 20 mg by mouth once brett* LISINOPRIL 20 MG-HYDROCHLOROT* Take 1 tablet by mouth once d* ROSUVASTATIN 40 MG TABLET Take 40 mg by mouth once brett* AMLODIPINE 5 MG TABLET Take 5 mg by mouth once daily. NALTREXONE ORAL Take by mouth. THIAMINE HCL (VITAMIN B1) 100* Take 100 mg by mouth once terrie* FLUTICASONE PROPIONATE 50 MCG* Use 1 Henderson in each nostril o* ZINC ORAL Take by mouth. ASCORBIC ACID (VITAMIN C) 500* Take by mouth. MULTI-VITAMIN ORAL Take by mouth. POTASSIUM GLUCONATE ORAL Take by mouth. LYSINE 1,000 MG TABLET Take by mouth. CYANOCOBALAMIN (VIT B-12) 1,0* Take 1,000 mcg by mouth once * CEPHALEXIN 500 MG CAPSULE Take 1 capsule by mouth four * Medication notes this encounter CEPHALEXIN 500 MG CAPSULE >> Kasi Portillo LPN 06/21/2019 9:28 AM >> KASI PORTILLO LPN [facility] Jun 21, 2019 9:28 AM Please d.C Problem List As Of Date 06/21/2019 Noted Resolved Essential hypertension [I10] INVALID FOR* More... Mixed hyperlipidemia [E78.2] INVALID FOR* More... NUHA (obstructive sleep apnea) [G47.33] INVALID FOR* More... Former smoker [Z87.891] INVALID FOR* More... ETOH abuse [F10.10] INVALID FOR* More... Anxiety [F41.9] INVALID FOR* More... Inguinal hernia without obstruction or gangrene*INVALID FOR* Encounter Status:Closed by WARREN PORTER MD on 06/21/19 [facility] HOSPon 06-21-2019 HOSP Patient:Balaji Mg MRN: Height:5' 11(1.803 m) Weight:152 lb 6.4 oz (69.128 kg) Outpatient Medications as of 07/23/19: citalopram (CELEXA) 20 mg tablet lisinopril-hydrochlor othiazide (PRINZIDE, ZESTORETIC) 20-25 mg per tablet rosuvastatin (CRESTOR) 40 mg tablet amLODIPine (NORVASC) 5 mg tablet naltrexone HCl (NALTREXONE ORAL) thiamine (VITAMIN B1) 100 mg tablet fluticasone (ALLERGY RELIEF, FLUTICASONE,) 50 mcg/actuation nasal spray ZINC ORAL ascorbic acid, vitamin C, 500 mg cap MULTI-VITAMIN ORAL POTASSIUM GLUCONATE ORAL Lysine 1,000 mg tab cyanocobalamin (VITAMIN B-12) 1,000 mcg tab Admission/Clinic Administered Medications as of 07/23/19: lactated ringers infusion ceFAZolin iv piggyback 2 g in D5W (iso-osmotic) 100 mL (ANCEF) Problem List: Essential hypertension [I10] Mixed hyperlipidemia [E78.2] NUHA (obstructive sleep apnea) [G47.33] Former smoker [Z87.891] ETOH abuse [F10.10] Anxiety [F41.9] Inguinal hernia without obstruction or gangrene [K40.90] Allergies: No Known Allergies Date Verified:07/23/19 Lab Values Lab Value Units Date High Low POTA* 3.8 mmol/L 07/18/2019 5.1 3.7 ROSEANN* 41.7 % 07/18/2019 51.0 39.0 No progress notes entered within the past 30 days [facility] PROGRESSon 06-21-2019 PROGRESS HNO ID: [id number] Author: Warren Porter Service: ? Author Type: Physician Type: Progress Notes Filed: 06/21/2019 1:01 PM Note Text: HISTORY AND PHYSICAL Cesario Mg 1965 REFERRING PHYSICIAN: MD Irvin CHIEF COMPLAINT: Post Op (Post op Hernia) HPI: Cesario is a 53 year old male with a complaint of a bulge and discomfort in his left inguinal region. The patient notes discomfort in this area with lifting, coughing and moving. The symptoms have increased, over the past few weeks. He notes a sloshing sound when the hernia is bulging out. I performed a right inguinal hernia repair on Thursday, March 07, 2019. The patient had a history of hypertension, anxiety, sleep apnea and previous alcohol abuse.his outpatient medicines were listed as Celexa, lisinopril hydrochlorothiazide, Crestor, Norvasc, naltrexone, fluticasone, multivitamins, he has no listed allergies. The patient underwent an open right inguinal hernia repair under monitored anesthetic care-local sedation. The patient was found to have both a direct and indirect defect. this was repaired using a mesh plug technique using a medium-sized plug placed in the internal ring. Surgery was uneventful. That evening, the patient's called noting he was bleeding from the right inguinal incision. The patient was instructed to hold pressure on the site. The next morning, the patient noted significant bruising with some swelling in the inguinal region the upper thigh and hemiscrotum. he presented to [facility] emergency department and was discharged with instructions contact me. I visited the patient for a house call and found significant bruising without signs of recurrence or other difficulties beyond superficial hematoma/bruise. The patient's and patient again contacted me this morning saying for the last couple days he is felt somewhat dizzy. He's had a poor appetite. This morning he had near syncopal episodes and fell down twice. I recommended to present to [facility] emergency department. I contacted the emergency department to inform that he would be on his way. I asked that they obtain a CT scan of the abdomen given his recent surgical history and postoperative bruising. He states overall he is at a relatively poor appetite. He did note a bowel movement today. Laboratory studies demonstrate a slightly low white blood cell count.hemoglobin is 12.4. Sodium was seen apparently low at 123 with a potassium of 3.1 and a chloride of 83. BUN and creatinine are 10 and 0.8. Urinalysis is currently pending. CT scan of the abdomen demonstrated the right inguinal hematoma and air in the subcutaneous tissues compatible with his recent hernia. No other specific abnormalities or extending hematoma retroperitoneally were noted. The patient currently notes his breathing is starting to resolve but he notes increased swelling just below the incision. his appetite has been good. he denies fever, chills or abdominal pain. he does note some improving incisional discomfort. he notes no bulges at the operative site with coughing or straining. VITALS: There were no vitals taken for this visit. On examination, the abdomen is benign. The incision is healing well without signs of infection or inflammation. There are no signs of recurrent hernia formation. There is bruising on the thigh inguinal area and hemiscrotum which are starting to resolve. There is more protuberance right below the incision with some redness but no induration or fluctuance. The patient notes no symptoms of bowel obstruction and denies nausea or vomiting. PAST MEDICAL HISTORY Diagnosis Date - Alcohol abuse - Allergic rhinitis - Anxiety - HTN (hypertension) - Hyperlipidemia - Sleep apnea PAST SURGICAL HISTORY Procedure Laterality Date - COLONOSCOPY 11/2017 5 yr - REPAIR ING HERNIA,5+Y/O,REDUCIBL 03/07/2019 Hernia repair, inguinal - REPAIR UMBILICAL HERNIA 03/2018 Current Outpatient Medications: citalopram (CELEXA) 20 mg tablet Take 20 mg by mouth once daily. lisinopril-hydrochlor othiazide (PRINZIDE, ZESTORETIC) 20-25 mg per tablet Take 1 tablet by mouth once daily. rosuvastatin (CRESTOR) 40 mg tablet Take 40 mg by mouth once daily. amLODIPine (NORVASC) 5 mg tablet Take 5 mg by mouth once daily. naltrexone HCl (NALTREXONE ORAL) Take by mouth. thiamine (VITAMIN B1) 100 mg tablet Take 100 mg by mouth once daily. fluticasone (ALLERGY RELIEF, FLUTICASONE,) 50 mcg/actuation nasal spray Use 1 Henderson in each nostril once daily. ZINC ORAL Take by mouth. ascorbic acid, vitamin C, 500 mg cap Take by mouth. MULTI-VITAMIN ORAL Take by mouth. POTASSIUM GLUCONATE ORAL Take by mouth. Lysine 1,000 mg tab Take by mouth. cyanocobalamin (VITAMIN B-12) 1,000 mcg tab Take 1,000 mcg by mouth once daily. cephALEXin (KEFLEX) 500 mg capsule Take 1 capsule by mouth four times daily. No current facility-administered medications for this visit. ALLERGIES: Patient has no known allergies. PERSONAL HISTORY: Social History Socioeconomic History Marital status: Single Spouse name: Not on file Number of children: Not on file Years of education: Not on file Highest education level: Not on file Occupational History Not on file Social Needs Financial resource strain: Not on file Food insecurity: Worry: Not on file Inability: Not on file Transportation needs: Medical: Not on file Non-medical: Not on file Tobacco Use Smoking status: Former Smoker Smokeless tobacco: Current User Types: Chew Tobacco comment: 1-1/2 cans / day Substance and Sexual Activity Alcohol use: Yes Alcohol/week: 20.0 - 25.0 standard drinks Types: 8 - 10 Cans of Beer (12oz) per week Comment: 56-70 beers/week Drug use: Yes Types: Marijuana Comment: occassional Sexual activity: Not on file Lifestyle Physical activity: Days per week: Not on file Minutes per session: Not on file Stress: Not on file Relationships Social connections: Talks on phone: Not on file Gets together: Not on file Attends jewish service: Not on file Active member of club or organization: Not on file Attends meetings of clubs or organizations: Not on file Relationship status: Not on file Intimate partner violence: Fear of current or ex partner: Not on file Emotionally abused: Not on file Physically abused: Not on file Forced sexual activity: Not on file Other Topics Concerns: Not on file Social History Narrative Not on file FAMILY HISTORY: FAMILY HISTORY Problem Relation Age of Onset - Diabetes Mother - Diabetes Brother - Diabetes Maternal Grandmother - Diabetes Maternal Grandfather - other (MVA) Father REVIEW OF SYMPTOMS: The review of systems data was entered by the nurse and reviewed by me There are no exam notes on file for this visit. PHYSICAL EXAMINATION: General: The patient is 53 year old male, well nourished, well hydrated in no acute distress. The patient is oriented to time, place, and person. VITALS: Blood pressure 140/76, pulse 88. There is no height or weight on file to calculate BMI. HEENT: Normal cephalic, ataumatic, pupils are equally round, sclera are anicteric, mucous membranes are moist, oropharynx is clear. Neck has no masses, asymmetry or lymphadenopathy. Thyroid is unremarkable. Respiratory: Clear to auscultation and percussion. Normal respiratory excursion and pattern. Cardiac: Examination is regular rate and rhythm. Abdominal exam: Soft, nontender, with no palpable masses. No hepatosplenomegaly. A small, reducible left inguinal hernia, no right inguinal or umbilical hernias are noted Rectal exam: exam deferred Extremities: no clubbing, cyanosis or edema. No adenopathy. Other: LABORATORY VALUES: As Noted RADIOLOGIC STUDIES: As Noted Assessment IMPRESSION: left inguinal hernia PLAN: My plan is to perform a open left inguinal hernia repair with mesh. The planned surgical procedure was discussed extensively with the patient. The risks, benefits, anticipated outcomes and possible complications were mentioned. Cesario newtonands that all hernia repair surgery has a chance of recurrence and/or chronic post operative pain. My staff has also explained the procedure in understandable terms and the patient was given the option to take printed material concerning the planned procedure. The patient had the opportunity to ask questions concerning the planned procedure. The patient freely consents to the planned procedure. Diagnoses: (K40.90) Inguinal hernia of left side without obstruction or gangrene (primary encounter diagnosis) Anticipated CPT Code: open left inguinal hernia repair with mesh - 58078-988 Anticipated Anesthetic: MAC with local Patient weight: Blood pressure 140/76, pulse 88. BMI: There is no height or weight on file to calculate BMI. Planned antibiotic: Ancef 2gm IVPB soil conservation aide to OR SCDs needed - Yes Return to Clinic: The patient is instructed to follow-up with me 1 week post operatively. Warren Porter MD [facility] CNOV 03-20-2019 CNOV Office Visit (GENSWS ) CESARIO MG ([id number]) 1965 Date Time Provider Department 03/20/19 3:20 PM WARREN PORTER During your visit today, we recorded the following information about you: Warren Porter MD 03/20/2019 5:47 PM Signed FOLLOW UP VISIT - HERNIA NAME: Cesario Joaquin [facility] NO.: [id number] DATE OF SERVICE: March 20, 2019 : 1965 Cesario is a 53 year old M whom I performed a right inguinal hernia repair on Thursday, March 07, 2019. The patient had a history of hypertension, anxiety, sleep apnea and previous alcohol abuse.his outpatient medicines were listed as Celexa, lisinopril hydrochlorothiazide, Crestor, Norvasc, naltrexone, fluticasone, multivitamins, he has no listed allergies. The patient underwent an open right inguinal hernia repair under monitored anesthetic care-local sedation. The patient was found to have both a direct and indirect defect. this was repaired using a mesh plug technique using a medium-sized plug placed in the internal ring. Surgery was uneventful. That evening, the patient's called noting he was bleeding from the right inguinal incision. The patient was instructed to hold pressure on the site. The next morning, the patient noted significant bruising with some swelling in the inguinal region the upper thigh and hemiscrotum. he presented to [facility] emergency department and was discharged with instructions contact me. I visited the patient for a house call and found significant bruising without signs of recurrence or other difficulties beyond superficial hematoma/bruise. The patient's and patient again contacted me this morning saying for the last couple days he is felt somewhat dizzy. He's had a poor appetite. This morning he had near syncopal episodes and fell down twice. I recommended to present to [facility] emergency department. I contacted the emergency department to inform that he would be on his way. I asked that they obtain a CT scan of the abdomen given his recent surgical history and postoperative bruising. He states overall he is at a relatively poor appetite. He did note a bowel movement today. Laboratory studies demonstrate a slightly low white blood cell count.hemoglobin is 12.4. Sodium was seen apparently low at 123 with a potassium of 3.1 and a chloride of 83. BUN and creatinine are 10 and 0.8. Urinalysis is currently pending. CT scan of the abdomen demonstrated the right inguinal hematoma and air in the subcutaneous tissues compatible with his recent hernia. No other specific abnormalities or extending hematoma retroperitoneally were noted. The patient currently notes his breathing is starting to resolve but he notes increased swelling just below the incision. his appetite has been good. he denies fever, chills or abdominal pain. he does note some improving incisional discomfort. he notes no bulges at the operative site with coughing or straining. VITALS: There were no vitals taken for this visit. On examination, the abdomen is benign. The incision is healing well without signs of infection or inflammation. There are no signs of recurrent hernia formation. There is bruising on the thigh inguinal area and hemiscrotum which are starting to resolve. There is more protuberance right below the incision with some redness but no induration or fluctuance. Assessment IMPRESSION: status post open right inguinal hernia repair with mesh - complicated by significant postoperative hematoma PLAN: If the patient notes any problems, he should contact me immediately. he may return to his regular activities as tolerated, with the exception of no lifting greater than 20 pounds for the next 6 weeks. This may be superficial hematoma trying to necessitate out the wound. I replaced the Steri-Strips to the site. If he notes the area seems to want to open and drained partially now I recommend he take a prescription of Keflex which have given him in case the wound opens and re-present and contact me. Otherwise I would like to see him back in the office in 3 months if the hematoma has not completely resolved. Diagnoses: (I10) Essential hypertension (primary encounter diagnosis) Return to Clinic: The patient is instructed to follow-up with me in 3 months if needed. Warren Porter MD Referring Provider: SELF [[id number]] Allergies As of Date: 03/20/2019 (No Known Allergies) Date Reviewed: 03/20/2019 Reviewed by: Lydia Goodwin LPN - Fully Assessed Reason for Visit: Post Op [174] Primary Visit Diagnosis:Essential hypertension [I10] Prescriptions as of 03/20/2019 Sig: CEPHALEXIN 500 MG CAPSULE Take 1 capsule by mouth four * CITALOPRAM 20 MG TABLET Take 20 mg by mouth once brett* LISINOPRIL 20 MG-HYDROCHLOROT* Take 1 tablet by mouth once d* ROSUVASTATIN 40 MG TABLET Take 40 mg by mouth once brett* AMLODIPINE 5 MG TABLET Take 5 mg by mouth once daily. NALTREXONE ORAL Take by mouth. THIAMINE HCL (VITAMIN B1) 100* Take 100 mg by mouth once terrie* FLUTICASONE PROPIONATE 50 MCG* Use 1 Henderson in each nostril o* ZINC ORAL Take by mouth. ASCORBIC ACID (VITAMIN C) 500* Take by mouth. MULTI-VITAMIN ORAL Take by mouth. POTASSIUM GLUCONATE ORAL Take by mouth. LYSINE 1,000 MG TABLET Take by mouth. CYANOCOBALAMIN (VIT B-12) 1,0* Take 1,000 mcg by mouth once * Problem List As Of Date 03/20/2019 Noted Resolved Essential hypertension [I10] INVALID FOR* More... Mixed hyperlipidemia [E78.2] INVALID FOR* More... NUHA (obstructive sleep apnea) [G47.33] INVALID FOR* More... Former smoker [Z87.891] INVALID FOR* More... ETOH abuse [F10.10] INVALID FOR* More... Anxiety [F41.9] INVALID FOR* More... Inguinal hernia without obstruction or gangrene*INVALID FOR* Encounter Status:Closed by WARREN PORTER MD on 03/20/19 [facility] PROGRESSon 03-20-2019 PROGRESS HNO ID: [id number] Author: Warren Porter Service: ? Author Type: Physician Type: Progress Notes Filed: 03/20/2019 5:47 PM Note Text: FOLLOW UP VISIT - HERNIA NAME: Cesario Joaquin [facility] NO.: [id number] DATE OF SERVICE: March 20, 2019 : 1965 Cesario is a 53 year old M whom I performed a right inguinal hernia repair on Thursday, March 07, 2019. The patient had a history of hypertension, anxiety, sleep apnea and previous alcohol abuse.his outpatient medicines were listed as Celexa, lisinopril hydrochlorothiazide, Crestor, Norvasc, naltrexone, fluticasone, multivitamins, he has no listed allergies. The patient underwent an open right inguinal hernia repair under monitored anesthetic care-local sedation. The patient was found to have both a direct and indirect defect. this was repaired using a mesh plug technique using a medium-sized plug placed in the internal ring. Surgery was uneventful. That evening, the patient's called noting he was bleeding from the right inguinal incision. The patient was instructed to hold pressure on the site. The next morning, the patient noted significant bruising with some swelling in the inguinal region the upper thigh and hemiscrotum. he presented to [facility] emergency department and was discharged with instructions contact me. I visited the patient for a house call and found significant bruising without signs of recurrence or other difficulties beyond superficial hematoma/bruise. The patient's and patient again contacted me this morning saying for the last couple days he is felt somewhat dizzy. He's had a poor appetite. This morning he had near syncopal episodes and fell down twice. I recommended to present to [facility] emergency department. I contacted the emergency department to inform that he would be on his way. I asked that they obtain a CT scan of the abdomen given his recent surgical history and postoperative bruising. He states overall he is at a relatively poor appetite. He did note a bowel movement today. Laboratory studies demonstrate a slightly low white blood cell count.hemoglobin is 12.4. Sodium was seen apparently low at 123 with a potassium of 3.1 and a chloride of 83. BUN and creatinine are 10 and 0.8. Urinalysis is currently pending. CT scan of the abdomen demonstrated the right inguinal hematoma and air in the subcutaneous tissues compatible with his recent hernia. No other specific abnormalities or extending hematoma retroperitoneally were noted. The patient currently notes his breathing is starting to resolve but he notes increased swelling just below the incision. his appetite has been good. he denies fever, chills or abdominal pain. he does note some improving incisional discomfort. he notes no bulges at the operative site with coughing or straining. VITALS: There were no vitals taken for this visit. On examination, the abdomen is benign. The incision is healing well without signs of infection or inflammation. There are no signs of recurrent hernia formation. There is bruising on the thigh inguinal area and hemiscrotum which are starting to resolve. There is more protuberance right below the incision with some redness but no induration or fluctuance. Assessment IMPRESSION: status post open right inguinal hernia repair with mesh - complicated by significant postoperative hematoma PLAN: If the patient notes any problems, he should contact me immediately. he may return to his regular activities as tolerated, with the exception of no lifting greater than 20 pounds for the next 6 weeks. This may be superficial hematoma trying to necessitate out the wound. I replaced the Steri-Strips to the site. If he notes the area seems to want to open and drained partially now I recommend he take a prescription of Keflex which have given him in case the wound opens and re-present and contact me. Otherwise I would like to see him back in the office in 3 months if the hematoma has not completely resolved. Diagnoses: (I10) Essential hypertension (primary encounter diagnosis) Return to Clinic: The patient is instructed to follow-up with me in 3 months if needed. Warren Porter MD [facility] CNOVon 03-15-2019 CNOV Office Visit (GENSWS ) CESARIO MG ([id number]) 1965 [place] Date Time Provider Department 03/15/19 3:50 PM WARREN PORTER During your visit today, we recorded the following information about you: Warren Porter MD 03/15/2019 5:18 PM Signed FOLLOW UP VISIT - HERNIA NAME: Cesario Mg CLINIC NO.: [id number] DATE OF SERVICE: 03/15/2019 : 1965 Cesario is a 53 year old M whom I performed a right inguinal hernia repair on Tuesday, March 07, 2019. The patient had a history of hypertension, anxiety, sleep apnea and previous alcohol abuse.his outpatient medicines were listed as Celexa, lisinopril hydrochlorothiazide, Crestor, Norvasc, naltrexone, fluticasone, multivitamins, he has no listed allergies. The patient underwent an open right inguinal hernia repair under monitored anesthetic care-local sedation. The patient was found to have both a direct and indirect defect. this was repaired using a mesh plug technique using a medium-sized plug placed in the internal ring. Surgery was uneventful. That evening, the patient's called noting he was bleeding from the right inguinal incision. The patient was instructed to hold pressure on the site. The next morning, the patient noted significant bruising with some swelling in the inguinal region the upper thigh and hemiscrotum. he presented to [facility] emergency department and was discharged with instructions contact me. I visited the patient for a house call and found significant bruising without signs of recurrence or other difficulties beyond superficial hematoma/bruise. The patient's and patient again contacted me this morning saying for the last couple days he is felt somewhat dizzy. He's had a poor appetite. This morning he had near syncopal episodes and fell down twice. I recommended to present to [facility] emergency department. I contacted the emergency department to inform that he would be on his way. I asked that they obtain a CT scan of the abdomen given his recent surgical history and postoperative bruising. He states overall he is at a relatively poor appetite. He did note a bowel movement today. Laboratory studies demonstrate a slightly low white blood cell count.hemoglobin is 12.4. Sodium was seen apparently low at 123 with a potassium of 3.1 and a chloride of 83. BUN and creatinine are 10 and 0.8. Urinalysis is currently pending. CT scan of the abdomen demonstrated the right inguinal hematoma and air in the subcutaneous tissues compatible with his recent hernia. No other specific abnormalities or extending hematoma retroperitoneally were noted. The patient currently notes his breathing is starting to resolve but he notes increased swelling just below the incision. his appetite has been good. he denies fever, chills or abdominal pain. he does note some improving incisional discomfort. he notes no bulges at the operative site with coughing or straining. VITALS: There were no vitals taken for this visit. On examination, the abdomen is benign. The incision is healing well without signs of infection or inflammation. There are no signs of recurrent hernia formation. There is bruising on the thigh inguinal area and hemiscrotum which are starting to resolve. There is more protuberance right below the incision with some redness but no induration or fluctuance. Intraoffice ultrasound was obtained which demonstrated what appeared to be hematoma right underneath the area of maximal swelling. The iliofemoral artery and vein were patent. There was no signs of pseudoaneurysm or other difficulties. This did not appear to be a drainable fluid collection. Assessment IMPRESSION: status post open right inguinal hernia repair with mesh - complicated by significant postoperative hematoma PLAN: If the patient notes any problems, he should contact me immediately. he may return to his regular activities as tolerated, with the exception of no lifting greater than 20 pounds for the next 7 weeks. This may be superficial hematoma trying to necessitate out the wound. I replaced the Steri-Strips to the site. If he notes the area seems to want to open and drained partially now I recommend he take a prescription of Keflex which have given him in case the wound opens and re-present and contact me. Otherwise I would like to see him back in the office next Tuesday to reevaluate the area. Diagnoses: (K40.90) Inguinal hernia without obstruction or gangrene, recurrence not specified, unspecified laterality (primary encounter diagnosis) Return to Clinic: The patient is instructed to follow-up with me in 4 days. Warren Porter MD Referring Provider: SELF [[id number]] Allergies As of Date: 03/15/2019 (No Known Allergies) Date Reviewed: 03/15/2019 Reviewed by: Lydia Goodwin LPN - Fully Assessed Reason for Visit: Post Op [174] Primary Visit Diagnosis:Inguinal hernia without obstruction or gangrene, recurrence not specified, unspecified laterality [K40.90] Order(s):cephALEXin (KEFLEX) 500 mg capsuleTake 1 capsule by mouth four times daily.Disp: 40 capsuleRfl: 0 Prescriptions as of 03/15/2019 Sig: CEPHALEXIN 500 MG CAPSULE Take 1 capsule by mouth four * CITALOPRAM 20 MG TABLET Take 20 mg by mouth once brett* LISINOPRIL 20 MG-HYDROCHLOROT* Take 1 tablet by mouth once d* ROSUVASTATIN 40 MG TABLET Take 40 mg by mouth once brett* AMLODIPINE 5 MG TABLET Take 5 mg by mouth once daily. NALTREXONE ORAL Take by mouth. THIAMINE HCL (VITAMIN B1) 100* Take 100 mg by mouth once terrie* FLUTICASONE PROPIONATE 50 MCG* Use 1 Henderson in each nostril o* ZINC ORAL Take by mouth. ASCORBIC ACID (VITAMIN C) 500* Take by mouth. MULTI-VITAMIN ORAL Take by mouth. POTASSIUM GLUCONATE ORAL Take by mouth. LYSINE 1,000 MG TABLET Take by mouth. CYANOCOBALAMIN (VIT B-12) 1,0* Take 1,000 mcg by mouth once * Problem List As Of Date 03/15/2019 Noted Resolved Essential hypertension [I10] INVALID FOR* More... Mixed hyperlipidemia [E78.2] INVALID FOR* More... NUHA (obstructive sleep apnea) [G47.33] INVALID FOR* More... Former smoker [Z87.891] INVALID FOR* More... ETOH abuse [F10.10] INVALID FOR* More... Anxiety [F41.9] INVALID FOR* More... Inguinal hernia without obstruction or gangrene*INVALID FOR* Prescriptions ordered this encounter Disp Refills Start End CEPHALEXIN 500 MG CAPSULE 40 c* 0 03/15/2019 Route: ORAL Sig: Take 1 capsule by mouth four times daily. Encounter Status:Closed by WARREN PORTER MD on 03/15/19 Normal [facility] PROGRESSon 03-15-2019 PROGRESS HNO ID: [id number] Author: Warren Portre Service: ? Author Type: Physician Type: Progress Notes Filed: 03/15/2019 5:18 PM Note Text: FOLLOW UP VISIT - HERNIA NAME: Cesario Joaquin [facility] NO.: [id number] DATE OF SERVICE: 03/15/2019 : 1965 Cesraio is a 53 year old M whom I performed a right inguinal hernia repair on Thursday, March 07, 2019. The patient had a history of hypertension, anxiety, sleep apnea and previous alcohol abuse.his outpatient medicines were listed as Celexa, lisinopril hydrochlorothiazide, Crestor, Norvasc, naltrexone, fluticasone, multivitamins, he has no listed allergies. The patient underwent an open right inguinal hernia repair under monitored anesthetic care-local sedation. The patient was found to have both a direct and indirect defect. this was repaired using a mesh plug technique using a medium-sized plug placed in the internal ring. Surgery was uneventful. That evening, the patient's called noting he was bleeding from the right inguinal incision. The patient was instructed to hold pressure on the site. The next morning, the patient noted significant bruising with some swelling in the inguinal region the upper thigh and hemiscrotum. he presented to [facility] emergency department and was discharged with instructions contact me. I visited the patient for a house call and found significant bruising without signs of recurrence or other difficulties beyond superficial hematoma/bruise. The patient's and patient again contacted me this morning saying for the last couple days he is felt somewhat dizzy. He's had a poor appetite. This morning he had near syncopal episodes and fell down twice. I recommended to present to [facility] emergency department. I contacted the emergency department to inform that he would be on his way. I asked that they obtain a CT scan of the abdomen given his recent surgical history and postoperative bruising. He states overall he is at a relatively poor appetite. He did note a bowel movement today. Laboratory studies demonstrate a slightly low white blood cell count.hemoglobin is 12.4. Sodium was seen apparently low at 123 with a potassium of 3.1 and a chloride of 83. BUN and creatinine are 10 and 0.8. Urinalysis is currently pending. CT scan of the abdomen demonstrated the right inguinal hematoma and air in the subcutaneous tissues compatible with his recent hernia. No other specific abnormalities or extending hematoma retroperitoneally were noted. The patient currently notes his breathing is starting to resolve but he notes increased swelling just below the incision. his appetite has been good. he denies fever, chills or abdominal pain. he does note some improving incisional discomfort. he notes no bulges at the operative site with coughing or straining. VITALS: There were no vitals taken for this visit. On examination, the abdomen is benign. The incision is healing well without signs of infection or inflammation. There are no signs of recurrent hernia formation. There is bruising on the thigh inguinal area and hemiscrotum which are starting to resolve. There is more protuberance right below the incision with some redness but no induration or fluctuance. Intraoffice ultrasound was obtained which demonstrated what appeared to be hematoma right underneath the area of maximal swelling. The iliofemoral artery and vein were patent. There was no signs of pseudoaneurysm or other difficulties. This did not appear to be a drainable fluid collection. Assessment IMPRESSION: status post open right inguinal hernia repair with mesh - complicated by significant postoperative hematoma PLAN: If the patient notes any problems, he should contact me immediately. he may return to his regular activities as tolerated, with the exception of no lifting greater than 20 pounds for the next 7 weeks. This may be superficial hematoma trying to necessitate out the wound. I replaced the Steri-Strips to the site. If he notes the area seems to want to open and drained partially now I recommend he take a prescription of Keflex which have given him in case the wound opens and re-present and contact me. Otherwise I would like to see him back in the office next Tuesday to reevaluate the area. Diagnoses: (K40.90) Inguinal hernia without obstruction or gangrene, recurrence not specified, unspecified laterality (primary encounter diagnosis) Return to Clinic: The patient is instructed to follow-up with me in 4 days. Warren Porter MD [facility] ANES Domenica 03-07-2019 ANES POST HNO ID: [id number] Author: David Salazar Service: Anesthesiology Author Type: Anesthesiologist Type: Anesthesia PostOp Filed: 03/07/2019 12:39 PM Note Text: POST ANESTHESIA EVALUATION NOTE SERVICE DATE: 03/07/2019 SERVICE TIME: 12:39 PM : 1965 Vitals: 03/07/19 0902 03/07/19 1128 Temp: 36.6 ?C (97.9 ?F) 36.6 ?C (97.9 ?F) 03/07/19 1154 03/07/19 1200 03/07/19 1215 03/07/19 1230 BP: 94/57 98/56 125/87 126/84 03/07/19 1154 03/07/19 1200 03/07/19 1215 03/07/19 1230 Pulse: (!) 55 72 (!) 57 (!) 56 03/07/19 1154 03/07/19 1200 03/07/19 1215 03/07/19 1230 Resp: 16 16 16 16 03/07/19 1145 03/07/19 1200 03/07/19 1215 03/07/19 1230 SpO2: 98% 99% 98% 98% Validated Vital Signs: Yes POST ANES STATUS: No apparent anesthetic complications. The patient is appropriately hydrated with stable respiratory and cardiovascular status. Patient has safe and adequate airway control. The patient has appropriate pain relief and no significant post operative nausea or vomiting. The patient has achieved baseline mental status. Further assessment by Anesthesia Service: None Other Remarks: SIGNATURE: David Salazar MD PATIENT NAME: Cesario Mg DATE: March 07, 2019 TIME: 12:39 PM PAGER/CONTACT #: [phone] [facility] ANES PREOPon 03-07-2019 ANES PREOP HNO ID: [id number] Author: David Salazar Service: Anesthesiology Author Type: Anesthesiologist Type: Anesthesia PreOp Filed: 03/07/2019 9:50 AM Note Text: ANESTHESIOLOGY DAY OF SURGERY NOTE SERVICE DATE: 03/07/2019 SERVICE TIME: 9:49 AM : 1965 Procedure(s) (LRB): HERNIORRHAPHY INGUINAL RECURRENT REDUCIBLE (Right) Surgeon(s): Warren Porter Estimated body mass index is 22.19 kg/m? as calculated from the following: Height as of this encounter: 180.3 cm (5' 10.98). Weight as of this encounter: 72.1 kg (159 lb). Most recent hematocrit and potassium results: No results found for this basename: HCT,HEMATOCRIT,K,POTA SSIUM ANES DOS/PREOP NOTE: Vitals: 03/07/19 0902 BP: 160/63 Pulse: 75 Resp: 14 Temp: 36.6 ?C (97.9 ?F) SpO2: 98% Weight: 72.1 kg (159 lb) Height: 180.3 cm (5' 10.98) ACTIVE PROBLEM LIST Essential Hypertension Mixed Hyperlipidemia Nuha (Obstructive Sleep Apnea) Former Smoker Etoh Abuse Anxiety Inguinal Hernia Without Obstruction Or Gangrene PAST MEDICAL HISTORY Diagnosis Date - Alcohol abuse - Allergic rhinitis - Anxiety - HTN (hypertension) - Hyperlipidemia - Sleep apnea PAST SURGICAL HISTORY Procedure Laterality Date - COLONOSCOPY 11/2017 5 yr - REPAIR UMBILICAL HERNIA 03/2018 FAMILY HISTORY Problem Relation Age of Onset - Diabetes Mother - Diabetes Brother - Diabetes Maternal Grandmother - Diabetes Maternal Grandfather - other (MVA) Father Social History: Social History Tobacco Use - Smoking status: Former Smoker - Smokeless tobacco: Current User Types: Chew - Tobacco comment: 1-1/2 cans / day Substance Use Topics - Alcohol use: Yes Alcohol/week: 12.0 - 15.0 oz Types: 8 - 10 Cans of Beer (12oz) per week Comment: 56-70 beers/week - Drug use: Yes Types: Marijuana Comment: occassional No current facility-administered medications on file prior to encounter. Current Outpatient Medications on File Prior to Encounter: citalopram (CELEXA) 20 mg tablet Take 20 mg by mouth once daily. lisinopril-hydrochlor othiazide (PRINZIDE, ZESTORETIC) 20-25 mg per tablet Take 1 tablet by mouth once daily. rosuvastatin (CRESTOR) 40 mg tablet Take 40 mg by mouth once daily. amLODIPine (NORVASC) 5 mg tablet Take 5 mg by mouth once daily. naltrexone HCl (NALTREXONE ORAL) Take by mouth. thiamine (VITAMIN B1) 100 mg tablet Take 100 mg by mouth once daily. fluticasone (ALLERGY RELIEF, FLUTICASONE,) 50 mcg/actuation nasal spray Use 1 Henderson in each nostril once daily. ZINC ORAL Take by mouth. ascorbic acid, vitamin C, 500 mg cap Take by mouth. MULTI-VITAMIN ORAL Take by mouth. POTASSIUM GLUCONATE ORAL Take by mouth. Lysine 1,000 mg tab Take by mouth. cyanocobalamin (VITAMIN B-12) 1,000 mcg tab Take 1,000 mcg by mouth once daily. Current Facility-Administered Medications Medication Dose Route Frequency Provider Last Rate Last Dose - lactated ringers infusion 30 mL/hr INTRAVENOUS CONTINUOUS Warren Porter 30 mL/hr at 03/07/19899 30 mL/hr at 03/07/19899 Allergies: ALLERGIES No Known Allergies DOS EXAM: Adequate NPO status: Yes Anesthetic risks, benefits, alternatives, personnel and consent discussed: Yes Patient agrees to proceed: Yes Previous Anesthesia: No history of adverse event. Airway Assessment: MP 2; Neck ROM: Full ROM without neurologic symptoms; Airway Evaluation: No significant abnormalities Symptoms of Sleep Apnea: Snoring Dentition: Teeth intact Additional Physical Exam: Lungs: Patient health status unchanged since recent history and physical. See history and physical for exam findings. Cardiac: Patient health status unchanged since recent history and physical. See history and physical for exam findings. Additional Pertinent Findings: N/A Blood Products: Not anticipated for this procedure. Anesthetic Plan: MAC with Sedation Pain Management Plan: Parenteral or Oral ASA Class: 3 Other Medical Problems: htn hld nuha I have interviewed and examined the patient. I have reviewed the medical record and/or the pre-anesthesia evaluation, pertinent labs, and test results. Significant changes in the patient's condition since the History and Physical, not otherwise documented in primary service progress notes: No This contains updated information obtained within 48 hours of Surgery/Procedure. SIGNATURE: David Salazar MD PATIENT NAME: Cesario Mg DATE: March 07, 2019 TIME: 9:49 AM CSN: [id number] [facility] BRIEF OP NOTon 03-07-2019 BRIEF OP NOT HNO ID: [id number] Author: Warren Porter Service: General Surgery Author Type: Physician Type: Brief Op Note Filed: 03/07/2019 11:29 AM Note Text: BRIEF OPERATIVE NOTATION FOR SURGICAL PROCEDURE. Cesario Mg 1965 [id number] male LOG ID: [id number] Surgery/Procedure Date: 03/07/2019 Incision/Procedure Start Time: 10:30 AM Incision Close/Procedure End Time: 11:22 AM Surgeon(s)/Procedural ist(s) and Four Slide Machine Setter(s): Surgeon(s) and Role: * Warren Porter - Primary Physician Four Slide Machine Setter: Imtiaz Osorio ([facility]) REFERRING PHYSICIAN: Outpatient DEPT: [facility] PROVIDER: Jeffrey POS: [id number] ANESTHESIA: Monitored Anesthesia Care ASA CLASS: 3 - Severe DIAGNOSIS: right inguinal hernia PROCEDURE: open right inguinal hernia repair with mesh - [id number] IVF: 800 EBL: minimal Specimens: cord lipoma ADDITIONAL DIAGNOSES: FINDINGS: direct and indirect COMPLICATIONS: None PMHx - PAST MEDICAL HISTORY Diagnosis Date - Alcohol abuse - Allergic rhinitis - Anxiety - HTN (hypertension) - Hyperlipidemia - Sleep apnea COMORBIDITIES - Chronic Alcohol Abuse and HTN Post Op Occurrences - None Wound Classification - Clean Operative note dictated in the dictation system. - [id number] Warren Porter MD [facility] HISTORY PHYSICALon HISTORY PHYSICAL HNO ID: [id number] Author: Warren Porter Service: General Surgery Author Type: Physician Type: HANDP Filed: 03/07/2019 9:12 AM Note Text: HISTORY AND PHYSICAL ? Cesario Mg 1965 ? ? REFERRING PHYSICIAN: Self ? CHIEF COMPLAINT: Consult (Consult Rt inguinal hernia) ? HPI: Cesario is a 53 year old male with a complaint of a bulge and discomfort in his right inguinal region. The patient notes discomfort in this area with lifting and coughing. The symptoms had increased to the point he presented emergency department 2 days previously. The hernia was reducible in his symptoms of pain improved. He had no obstructive symptoms. He was referred for evaluation for hernia repair area he had noticed hernia probably more significantly for the past 5 days. He is uncertain how long the hernia has been present otherwise. 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 He would like to have this hernia of her discomfort is possible as this is his busy season. ? He is tobacco but states he has quit at various times for at least a year ? The patient notes no symptoms of bowel obstruction and denies nausea or vomiting. The patient was seen by the emergency room physician who felt the patient has a hernia. Cesario was referred for evaluation and treatment. ? PAST MEDICAL HISTORY Diagnosis Date - Alcohol abuse ? - Allergic rhinitis ? - Anxiety ? - HTN (hypertension) ? - Hyperlipidemia ? - Sleep apnea ? ? ? PAST SURGICAL HISTORY Procedure Laterality Date - COLONOSCOPY ? 11/2017 ? 5 yr - REPAIR UMBILICAL HERNIA ? 03/2018 ? Current Outpatient Medications: citalopram (CELEXA) 20 mg tablet Take 20 mg by mouth once daily. lisinopril-hydrochlor othiazide (PRINZIDE, ZESTORETIC) 20-25 mg per tablet Take 1 tablet by mouth once daily. rosuvastatin (CRESTOR) 40 mg tablet Take 40 mg by mouth once daily. amLODIPine (NORVASC) 5 mg tablet Take 5 mg by mouth once daily. naltrexone HCl (NALTREXONE ORAL) Take by mouth. thiamine (VITAMIN B1) 100 mg tablet Take 100 mg by mouth once daily. fluticasone (ALLERGY RELIEF, FLUTICASONE,) 50 mcg/actuation nasal spray Use 1 Henderson in each nostril once daily. ZINC ORAL Take by mouth. ascorbic acid, vitamin C, 500 mg cap Take by mouth. MULTI-VITAMIN ORAL Take by mouth. POTASSIUM GLUCONATE ORAL Take by mouth. Lysine 1,000 mg tab Take by mouth. cyanocobalamin (VITAMIN B-12) 1,000 mcg tab Take 1,000 mcg by mouth once daily. ? No current facility-administered medications for this visit. ? ALLERGIES: Patient has no known allergies. ? PERSONAL HISTORY: Social History Socioeconomic History Marital status: Single Spouse name: Not on file Number of children: Not on file Years of education: Not on file Highest education level: Not on file Social Needs Financial resource strain: Not on file Food insecurity - worry: Not on file Food insecurity - inability: Not on file Transportation needs - medical: Not on file Transportation needs - non-medical: Not on file Occupational History Not on file Tobacco Use Smoking status: Former Smoker Smokeless tobacco: Current User Types: Chew Tobacco comment: 1-1/2 cans / day Substance and Sexual Activity Alcohol use: Not on file Drug use: Not on file Sexual activity: Not on file Other Topics Concerns: Not on file Social History Narrative Not on file ? FAMILY HISTORY: No family history on file. ? REVIEW OF SYMPTOMS: The review of systems data was entered by the nurse and reviewed by me ? Nursing Notes: Kasi Portillo LPN 02/27/2019 3:20 PM Signed REVIEW OF SYSTEMS: General: The patient denies fatigue, denies weight loss, denies weight gain, denies feeling hot, and denies feelings of cold. Eyes: The patient denies glaucoma, denies eye injury/surgery, wears glasses or contacts. Ear/Nose/Throat: The patient NOTES allergies, denies hayfever, denies ear infections, and denies bloody noses. Cardiovascular: The patient denies chest pain, denies heart disease, NOTES high blood pressure,denies cardiac stent, denies prior heart attack, denies irregular heart beat, NOTES high cholesterol, denies poor circulation, denies heart failure, other cardiac issues, denies claudication, denies cold feet, denies peripheral arterial stent. Respiratory: The patient denies tuberculosis, denies pneumonia, denies frequent cough, denies pulmonary embolism, denies shortness of breath, and denies coughing up blood. Gastrointestinal: The patient denies difficulty swallowing, denies acid reflux, denies ulcers, denies vomiting, denies jaundice/hepatitis, denies gallbladder problems, denies black or tarry stools, denies hemorrhoids, denies bleeding from rectum, denies diverticulitis, denies constipation, denies diarrhea, denies loss of stool control, and NOTES hernias. Kidney/Bladder: The patient denies kidney stones, denies urine infections, and denies bloody urine. Skin: The patient denies a history of skin cancer, denies bleeding/changing moles, and denies a history of skin rash. Neurologic: The patient denies a history of epilepsy/convulsions, denies headaches, denies head/spinal injuries, and denies stroke/TIA. Psychiatric: The patient denies psychiatric medications, denies depression, and denies voices, NOTES substance abuse. Endocrine: The patient denies thyroid disorders, denies diabetes, and denies hormonal problems. Hematologic: The patient denies a history of bruising, denies bleeding, and denies anemia, denies blood clots. Infections: The patient denies a history of measles and mumps, denies rheumatic fever, and denies sexually transmitted diseases. Musculoskeletal: The patient denies back pain/injury, denies back problems, denies sciatica, denies knee/foot trouble, denies arthritis, or denies gout. ? ? When was patient's last Mammogram screening? N/A ? Last Colonoscopy: 2018 ? Kasi oPrtillo LPN PHYSICAL EXAMINATION: ? General: The patient is 53 year old male, well nourished, well hydrated in no acute distress. The patient is oriented to time, place, and person. ? VITALS: Blood pressure 138/78, pulse 96, temperature 36.8 ?C (98.2 ?F), height 180.3 cm (5' 11), weight 72.6 kg (160 lb), SpO2 97 %. Body mass index is 22.32 kg/m?. ? HEENT: Normal cephalic, ataumatic, pupils are equally round, sclera are anicteric, mucous membranes are moist, oropharynx is clear. Neck has no masses, asymmetry or lymphadenopathy. Thyroid is unremarkable. ? Respiratory: Clear to auscultation and percussion. Normal respiratory excursion and pattern. ? Cardiac: Examination is regular rate and rhythm. ? Abdominal exam: Soft, nontender, with no palpable masses. No hepatosplenomegaly. A small, reducible right inguinal hernia, no left inguinal or umbilical hernias are noted ? Rectal exam: exam deferred ? Extremities: no clubbing, cyanosis or edema. No adenopathy. ? Other: ? ? LABORATORY VALUES: As Noted ? RADIOLOGIC STUDIES: As Noted ? Assessment IMPRESSION: right inguinal hernia ? PLAN: My plan is to perform a open right inguinal hernia repair with mesh. The planned surgical procedure was discussed extensively with the patient. The risks, benefits, anticipated outcomes and possible complications were mentioned. Cesario newtonands that all hernia repair surgery has a chance of recurrence and/or chronic post operative pain. My staff has also explained the procedure in understandable terms and the patient was given the option to take printed material concerning the planned procedure. The patient had the opportunity to ask questions concerning the planned procedure. The patient freely consents to the planned procedure. ? All tobacco/nicotine use needs to be completely stopped at least 4 weeks prior to surgery and not used in any form for 8 weeks following surgery due to nicotine's prevention of appropriate wound healing ? ? ? Diagnoses: (K40.90) Non-recurrent unilateral inguinal hernia without obstruction or gangrene (primary encounter diagnosis) ? Anticipated CPT Code: open right inguinal hernia repair with mesh - 78394-881 ? Anticipated Anesthetic: MAC with local ? Patient weight: Blood pressure 138/78, pulse 96, temperature 36.8 ?C (98.2 ?F), height 180.3 cm (5' 11), weight 72.6 kg (160 lb), SpO2 97 %. BMI: Body mass index is 22.32 kg/m?. ? Planned antibiotic: Ancef 2gm IVPB soil conservation aide to OR ? SCDs needed - Yes Return to Clinic: The patient is instructed to follow-up with me 1 week post operatively. ? Warren Porter MD [facility] OPERATIVE NOon 03-07-2019 OPERATIVE NO HNO ID: [id number] Author: Warren Porter Service: General Surgery Author Type: Physician Type: Operative Report Filed: 03/08/2019 6:02 AM Note Text: [facility] - Operative Report CESARIO MG : 1965 AGE: 53. SEX: M PATIENT TYPE: A HOSP SVC: [facility] LOCATION: [facility] ATTENDING PHYSICIAN: WARREN PORTER CSN NUMBER: [id number] DATE OF SURGERY/PROCEDURE: 03/07/2019 INCISION/PROCEDURE START TIME: 10:30 a.m. INCISION CLOSE/PROCEDURE END TIME: 11:22 a.m. PREOPERATIVE DIAGNOSIS: Right inguinal hernia. POSTOPERATIVE DIAGNOSIS: Right direct and indirect hernia. SURGEON: Warren Porter M.D. DIRECTOR OF HOME CARE HOSPICE: Imtiaz PERRY. SURGERY/PROCEDURE: Right inguinal hernia with mesh plug using a Covidien small- sized mesh plug, reference #[id number], lot #[id number], expires 12/03/2022. ANESTHESIA: Local MAC. LOG ID NUMBER: [id number]. ANESTHESIOLOGIST: David Salazar. ASA: 3. INTRAVENOUS FLUIDS: 800 mL. ESTIMATED BLOOD LOSS: Minimal. URINE OUTPUT: No catheter. FINDINGS: As described above. SPECIMEN: Cord lipoma. DRAINS: None. COMPLICATION: None. DISPOSITION: The patient was taken to PACU in good condition. DESCRIPTION OF PROCEDURE: The patient was brought to the operative suite. Sign-in was performed verifying patient, site, procedure, position, critical nursing information, VTE and antibiotic prophylaxis. Patient received 2 grams of Ancef and sequential compression devices placed. Following IV sedation, the right inguinal area was prepped and draped in usual fashion. Time-out was performed verifying patient, site, procedure, position. A 50:50 mixture of lidocaine and Marcaine was injected into the anterior iliac spine along the planned skin incision. Incision made, dissection of subcutaneous fat, traversing veins ligated with 3-0 Vicryl ties and divided. Dissection carried down to the external oblique aponeurosis. Local anesthetic was injected into the canal. The fibers were opened in the direction. The iliohypogastric and ilioinguinal nerves were identified and protected and spared during the procedure. The spermatic cord was surrounded at the level of the pubic tubercle brought up to the operative field. The patient was noted to have an indirect defect with a weak floor. There was significant cord lipoma along the cord, but as the cord was dissected, no true hernia sac was encountered. At this point, ligation of the cord lipoma and amputation was performed with the cord lipoma sent for pathology. Additional small like cord lipoma was reduced to the internal inguinal ring and a small mesh plug was secured. DICTATION ENDS HERE Warren Porter M.D. RG:[id number] /[id number] Normal [facility] OPERATIVE NO HNO ID: [id number] Author: Warren Porter Service: General Surgery Author Type: Physician Type: Operative Report Filed: 03/08/2019 6:02 AM Note Text: [facility] - Operative Report CESARIO MG : 1965 AGE: 53. SEX: M PATIENT TYPE: A HOSP SV: [facility] LOCATION: [facility] ATTENDING PHYSICIAN: WARREN PORTER CSN NUMBER: [id number] DATE OF SURGERY/PROCEDURE: 03/07/2019 INCISION/PROCEDURE START TIME: 10:30 a.m. INCISION CLOSE/PROCEDURE END TIME: 11:22 a.m. PREOPERATIVE DIAGNOSIS: Right inguinal hernia. POSTOPERATIVE DIAGNOSIS: Direct and indirect right inguinal hernia. SURGEON: Warren Porter M.D. DIRECTOR OF HOME CARE HOSPICE: Imtiaz PERRY. SURGERY/PROCEDURE: Right inguinal hernia repair with mesh using a Covidien mesh plug reference# [id number], lot #[id number], expires 12/03/2022. ANESTHESIA: Local MAC. LOG ID NUMBER: [id number]. ANESTHESIOLOGIST: David Salazar. ASA: 3. IV FLUIDS: 800 mL. ESTIMATED BLOOD LOSS: Minimal. URINE OUTPUT: No catheter. FINDINGS: As described above. SPECIMEN: Cord lipoma. DRAINS: None. COMPLICATIONS: None. DISPOSITION: The patient was taken to PACU in stable condition. DESCRIPTION OF PROCEDURE: The patient was marked in the holding area. The patient concurred right operative site. Sign-in was performed verifying patient, site, procedure, position, critical nursing information, VTE and antibiotic prophylaxis. Patient received 2 grams of Ancef and sequential compression devices placed. Following IV sedation, the right inguinal region was prepped and draped in the usual fashion. Time-out was performed verifying patient, site, procedure, and position. Local anesthetic was injected into the anterior iliac spine along the planned course of skin incision. Incision was made, dissection carried down to subcutaneous tissues, traversing veins, ligated and divided with 3-0 Vicryl ties. . Dissection down to the external oblique aponeurosis. Local anesthetic was injected into the canal. Fibers opened in the direction and the iliohypogastric and ilioinguinal nerves were identified and protected during the procedure. The spermatic cord was surrounded over the pubic tubercle and brought to the operative field. There was both a weak floor and a direct inguinal hernia. As the cord was dissected, there was a significant cord lipoma, but no obvious sac. The excessive cord lipoma was amputated and ligated with a 0 Vicryl tie and a smaller cord lipoma was reduced in the preperitoneal space. The plug was then secured with interrupted 0 Prolene sutures into the inguinal ring. The onlay mesh was secured to the pubic tubercle running to Justino ligament transitioned to the ilioinguinal inferiorly, then to the transversus arch superiorly. The mesh was notched to have appropriate lying of the spermatic cord and the 2 tails closed with running 0 Vicryl suture. The spermatic cord returned to anatomic position. External oblique was closed with a running 0 Vicryl suture. Burak was closed with 3-0 Vicryl suture. Skin was closed with 4-0 Biosyn and silk suture. Steri-Strips dressing applied. The patient tolerated the procedure well and was brought to the recovery room in stable condition. Warren Porter M.D. RG:[id number] /[id number] [facility] PLAN OF CAREon 03-07-2019 PLAN OF CARE HNO ID: [id number] Author: Natalie Mccloud (MiniTime) Service: Pharmacy Author Type: ? Type: Plan of Care Filed: 03/07/2019 1:47 PM Note Text: ADVANCED QUALITY ENGINEER BEDSIDE DELIVERY SURVEY 1. Patient to use [facility] Bedside Delivery - YES Insurance Information as follows: 2. Insurance card on file - YES 3. Credit card for payment - YES PHARMACY BEDSIDE DELIVERY SERVICE Patient Name: Cesario Mg The marked outpatient medications were Filled at: [facility] and delivered to the patient's bedside to pharm p/u Medication List START taking these medications oxyCODONE-acetaminoph en 5-325 mg tablet Commonly known as: PERCOCET Take 1 tablet by mouth every 4 hours as needed for Pain for up to 3 days. X CONTINUE taking these medications ALLERGY RELIEF (FLUTICASONE) 50 mcg/actuation nasal spray Generic drug: fluticasone amLODIPine 5 mg tablet Commonly known as: NORVASC ascorbic acid (vitamin C) 500 mg Cap citalopram 20 mg tablet Commonly known as: CeleXA cyanocobalamin 1,000 mcg Tab Commonly known as: VITAMIN B-12 lisinopril-hydrochlor othiazide 20-25 mg per tablet Commonly known as: PRINZIDE, ZESTORETIC Lysine 1,000 mg Tab MULTI-VITAMIN ORAL NALTREXONE ORAL POTASSIUM GLUCONATE ORAL rosuvastatin 40 mg tablet Commonly known as: CRESTOR thiamine 100 mg tablet Commonly known as: VITAMIN B1 ZINC ORAL You might also be taking other medications not listed above. If you have questions about any of your other medications, talk to the person who prescribed them or your Primary Care Provider. Natalie Mccloud (MiniTime) PAGER: [phone] March 07, 2019 1:47 PM [facility] PT EDon 03-07-2019 PT ED HNO ID: [id number] Author: Jackie LopezRn) ARELY Pritchett Service: ? Author Type: Registered Nurse Type: Patient Education Filed: 03/07/2019 1:16 PM Note Text: POST OP LEARNING RESPONSE INSTRUCTION PROVIDED TO: Patient and family member METHOD OF INSTRUCTION: Individual instruction Written instruction - handouts Verbal instruction PATIENT / FAMILY RESPONSE: Verbalizes understanding of: INFECTION MANAGEMENT-Signs and symptoms of an infection and importance of contacting the physician PAIN MANAGEMENT-Effective strategies to manage pain in addition to pain medication PHYSICAL RESTRICTIONS-Physical restrictions and recommendations after discharge from the hospital POST-OPERATIVE INSTRUCTIONS-Correct actions to take to reduce postoperative complications FOLLOW-UP PLAN: Patient instructed to call with any further issues Follow-up with Primary Care SUPPLEMENTAL MATERIAL: None REFERRAL (RECOMMENDATION): None Electronically Signed By: Jackie Pritchett, RN, BSN In Department: [facility] SURGERY [facility] PT ED HNO ID: [id number] Author: Uri (Rn) ARELY Pena Service: Nursing Author Type: Registered Nurse Type: Patient Education Filed: 03/07/2019 9:11 AM Note Text: PRE OP LEARNING ASSESSMENT PROCEDURE/SURGERY: SURGERY: right inguinal hernia repair READINESS TO LEARN COGNITIVE ABILITY: Alert and oriented MOTIVATION TO LEARN: Eager FAMILY SUPPORT: family here PATIENT LEARNS BEST BY: Written Instruction - Hand-outs Verbal Instruction FACTORS AFFECTING LEARNING: None PHYSICAL LIMITATIONS AFFECTING LEARNING: None Electronically Signed By: Uri Pena RN In Department: [facility] SURGERY [facility] SURGICAL PATHOLOGYon 019 SURGICAL PATHOLOGY Specimen originated from [facility] Specimen #: [id number] Submitting Physician: WARREN PORTER MD FINAL DIAGNOSIS A. Soft tissue, right inguinal, herniorrhaphy - Benign fibroadipose tissue. SDB/rw 03/09/2019 Pierre Tejada M.D. (Electronic Signature) ____ SPECIMEN SUBMITTED A: RIGHT CORD LIPOMA CLINICAL DATA RIGHT INGUINAL HERNIA RIGHT INGUINAL HERNIA REPAIR WITH MESH GROSS DESCRIPTION A. Received in formalin labeled with the patient's name and cord lipoma is an irregular portion of encapsulated adipose tissue measuring 5 x 3.3 x 1.5 cm. The cut surfaces are yellow, lobulated, glistening. No obvious areas of induration are grossly present. Director Surgical sections are submitted in cassettes A1-A2. [facility]//03-07-2019 Gross [place] [address] Date of Report: 03/09/2019 Date of Procedure: 03/07/2019 Date of Receipt: 03/07/2019 Submitted by: WARREN PORTER MD Location: [facility] Diagnostic interpretation performed at [place] [address]. CLIA Number: [id number] [facility] NURSING PROGon 03-02-2019 NURSING PROG HNO ID: [id number] Author: Anabelle Villela RN Service: ? Author Type: ? Type: Nursing Progress Note Filed: 03/06/2019 7:40 AM Note Text: PACC Nurse Progress Note History AND Physical: PACC Visit Date: 02/28/19 Original HANDP Date: N/A ED visit Date: N/A Outside HANDP Scanned Date: N/A Labs Within Last 6 Months: [facility] pt states had completed 02/23/2019 02/23/19 CBC RBC 4.26 02/23/19 CMP AST 167, ALT 162, Protein 8.9 ETOH Abuse Above scanned in Epic Imaging Within Last 12 Months: N/A Cardiac Testing: N/A BMI Percentile (PEDS): N/A Risk Assessment: N/A Anesthesia Review: N/A Narrative: N/A Pre-op Considerations: ETOH abuse Assessment: drinks 8-10 beers/night, states history in 2015 for hospitalization for detox. States drinking was >20 beers/night +NUHA does not use CPAP. Chart Check: COMPLETE Anabelle Villela RN March 06, 2019 7:39 AM [facility] HISTORY PHYSICALon 9 HISTORY PHYSICAL HNO ID: [id number] Author: Shani Handley Service: ? Author Type: Nurse Practitioner Type: HANDP Filed: 02/28/2019 9:01 AM Note Text: HISTORY AND PHYSICAL EXAMINATION SERVICE DATE: 02/28/2019 SERVICE TIME: 8:26 AM PRIMARY CARE PHYSICIAN: No primary care provider on file. REASON FOR VISIT: Cesario Mg is a 53 year old male who is scheduled for PAC due toHERNIORRHAPHY INGUINAL RECURRENT REDUCIBLE at the request of Dr. Warren Porter for consultation. My final recommendation will be communicated back to the requesting physician by way of shared medical record or letter. The patient has the following: ACTIVE PROBLEM LIST Essential Hypertension Mixed Hyperlipidemia Nuha (Obstructive Sleep Apnea) Former Smoker Etoh Abuse Anxiety Inguinal Hernia Without Obstruction Or Gangrene Subjective CHIEF COMPLAINT: Pre-op exam: Inguinal Hernia HPI: Cesario is a 53 year old male presents for PAC due to scheduled above surgery because of an inguinal hernia. He complains of a bulge and discomfort in his right inguinal region. The patient notes discomfort in this area with lifting and coughing. The symptoms had increased to the point he presented emergency department 2 days previously. The hernia was reducible in his symptoms of pain improved. He had no obstructive symptoms. He had noticed hernia probably more significantly for the past 6 days. He is uncertain how long the hernia has been present otherwise. 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 ? He is tobacco but states he has quit at various times for at least a year ? The patient notes no symptoms of bowel obstruction and denies nausea or vomiting. ? ? PAST MEDICAL HISTORY Diagnosis Date - Alcohol abuse - Allergic rhinitis - Anxiety - HTN (hypertension) - Hyperlipidemia - Sleep apnea PAST SURGICAL HISTORY Procedure Laterality Date - COLONOSCOPY 11/2017 5 yr - REPAIR UMBILICAL HERNIA 03/2018 FAMILY HISTORY Problem Relation Age of Onset - Diabetes Mother - Diabetes Brother - Diabetes Maternal Grandmother - Diabetes Maternal Grandfather SOCIAL HISTORY: Social History Socioeconomic History Marital status: Single Spouse name: Not on file Number of children: Not on file Years of education: Not on file Highest education level: Not on file Social Needs Financial resource strain: Not on file Food insecurity - worry: Not on file Food insecurity - inability: Not on file Transportation needs - medical: Not on file Transportation needs - non-medical: Not on file Occupational History Not on file Tobacco Use Smoking status: Former Smoker Smokeless tobacco: Current User Types: Chew Tobacco comment: 1-1/2 cans / day Substance and Sexual Activity Alcohol use: Not on file Drug use: Not on file Sexual activity: Not on file Other Topics Concerns: Not on file Social History Narrative Not on file MEDICATIONS: Prior to Admission medications as of 02/28/19 2384 Medication Sig Last Dose Taking citalopram (CELEXA) 20 mg tablet Take 20 mg by mouth once daily. Taking Yes lisinopril-hydrochlor othiazide (PRINZIDE, ZESTORETIC) 20-25 mg per tablet Take 1 tablet by mouth once daily. Taking Yes rosuvastatin (CRESTOR) 40 mg tablet Take 40 mg by mouth once daily. Taking Yes amLODIPine (NORVASC) 5 mg tablet Take 5 mg by mouth once daily. Taking Yes naltrexone HCl (NALTREXONE ORAL) Take by mouth. Taking Yes thiamine (VITAMIN B1) 100 mg tablet Take 100 mg by mouth once daily. Taking Yes fluticasone (ALLERGY RELIEF, FLUTICASONE,) 50 mcg/actuation nasal spray Use 1 Henderson in each nostril once daily. Taking Yes ZINC ORAL Take by mouth. Taking Yes ascorbic acid, vitamin C, 500 mg cap Take by mouth. Taking Yes MULTI-VITAMIN ORAL Take by mouth. Taking Yes POTASSIUM GLUCONATE ORAL Take by mouth. Taking Yes Lysine 1,000 mg tab Take by mouth. Taking Yes cyanocobalamin (VITAMIN B-12) 1,000 mcg tab Take 1,000 mcg by mouth once daily. Taking Yes No medication comments found. CURRENT ALLERGIES: ALLERGIES No Known Allergies REVIEW OF SYSTEMS: PAIN ASSESSMENT: General: No weight loss, malaise or fevers. Neuro: No history of TIA's, stroke, TIME RECORDER tumor, impaired sensorium, hemiplegia, paraplegia or quadraplegia. No neurological symptoms or problems. Denies hx STONE/migraines. Denies numbness/tingling. Respiratory: No history of current cough or dyspnea, or pneumonia in the past 6 weeks. No history of respiratory/pulmonary symptoms or problems. +Former smoker, Denies asthma. +NUHA does not use CPAP. Seasonal allergies. Cardiovascular: Positive for: HLD, Hypertension, on rx, Negative for Recent [place], Arrhythmia, CAD, Chest Pain, CHF, PVD, Valvular Heart Disease, DVT/PE, LE edema or SOB GI: Positive for ETOH > 2 drinks / day ( > 2 12 oz cans of beer), History of polyps, SEE HPI, Negative for GERD, PUD, Nausea, Vomiting, Abdominal pain, Liver disease : No history of dysuria, frequency or incontinence,, stones or chronic kidney disease Endocrine: No history of diabetes. Has not taken steroids within the past 30 days. No history of endocrinological symptoms or problems. Hematology: No history of bleeding or clotting disorder. Pt is not taking anti-coagulation or platelet medications. No history of hematological symptoms or problems. Oncology: No history of CA metastasis, chemo within 30 days, or radiotherapy within 90 days. Has not lost 10% of body wt in 6 months. No history of oncological symptoms or problems. Psych: has been admitted previously for ETOH/detox 2014 +Anxiety, on rx Musculoskeletal: Negative for joint pain or swelling, back pain or muscle pain. Skin: Negative for lesions, rash and itching. Objective PHYSICAL EXAM: VITALS: BP 142/84 Pulse 86 Temp 98 Ht 5' 11 (1.80m) Wt 159 lb (72.1kg) SpO2 98% BMI 22.19 kg/(m2). General: Alert and oriented Skin: Normal color, no rash, no lesions. HEENT: EOM, pupils equal, round and reactive. Cardiovascular: Normal S1 AND S2, no rubs, murmurs or gallops. No JVD. Pulse regular. Lungs: Normal breath sounds, no wheezes or crackles. Abdomen: Soft, non-tender, no rigidity. Extremities: No deformity, no edema or tenderness, no joint swelling or clubbing. Neurological: Normal cognition and motor skills. Pulses: Carotid and radial pulses normal +2. Diagnostic tests reviewed for today's visit: Lab Value Units Date High Low HB No results within date range. HCT No results within date range. WBC No results within date range. PLT No results within date range. NA No results within date range. K No results within date range. GLUC No results within date range. BUN No results within date range. CREAT No results within date range. PTSEC No results within date range. INR No results within date range. APTT No results within date range. ALT No results within date range. AST No results within date range. TBILI No results within date range. TSH No results within date range. Lab Value Units Date High Low HCGQT No results within date range. UHCG No results within date range. HCG, BODY* No results within date range. Lab Value Units Date High Low ABORHD No results within date range. ABSCREEN No results within date range. No results found for: HBA1C No new labs or tests Assessment/Plan Essential hypertension Assessment: controlled, on rx Mixed hyperlipidemia Assessment: on rx NUHA (obstructive sleep apnea) dAssessment: does not use CPAP Former smoker Assessment: still uses smokeless tobacco ETOH abuse Assessment: drinks 8-10 beers/night, states history in 2015 for hospitalization for detox. States drinking was >20 beers/night Anxiety Assessment: on rx METS: Climb a flight of stairs or walk up a hill (5.50 METs) Patient denies any chest pain or undue shortness of breath with the above physical activity. ASA Class: 3 ANESTHESIA FINDINGS: Intubation History: No history of difficult intubation Significant Anesthesia Considerations: None Airway Exam: General: Normal appearance Mallampati Score is CLASS II ULBT: Class II - Lower incisors can bite the upper lip below the samson line Neck: Normal appearance and function, Distance from hyoid to mentum during neck extension is at least 3 finger breaths Mouth: Normal tongue size Dentition: Intact Airway History: No abnormal airway history STOP BANG Score: NUHA does not use CPAP/BiPAP PLAN This patient is optimally prepared for surgery. Recent labs requested from [place], pt states had completed 02/23/2019 CONSULTS: Patient does not require consults for optimization at this time. The Following Tests/Procedures Have Been Initiated: Labs not indicated per PACC protocol, EKG not indicated per PACC protocol Planned Anesthetic: Per anesthesia choice Instructions Given to Patient: Patient given verbal and written preop instructions and voices comprehension and compliance. @ASSESSEND@ SIGNATURE: Shani Handley [email or web address].[email or web address] PATIENT NAME: Cesario Mg DATE: February 28, 2019 TIME: 8:25 AM PAGER/CONTACT #: [facility] Mindy 02-27-2019 CNOV Office Visit (GENSWS ) CESARIO MG ([id number]) 1965 M Date Time Provider Department 02/27/19 2:50 PM WARREN PORTER During your visit today, we recorded the following information about you: Temperature Pulse Blood pressure Weight 98.2 degrees 96/minute 138/78 72.6 kg Height 1.803 m Kasi Portillo [employer]W 02/27/2019 3:20 PM Signed REVIEW OF SYSTEMS: General: The patient denies fatigue, denies weight loss, denies weight gain, denies feeling hot, and denies feelings of cold. Eyes: The patient denies glaucoma, denies eye injury/surgery, wears glasses or contacts. Ear/Nose/Throat: The patient NOTES allergies, denies hayfever, denies ear infections, and denies bloody noses. Cardiovascular: The patient denies chest pain, denies heart disease, NOTES high blood pressure,denies cardiac stent, denies prior heart attack, denies irregular heart beat, NOTES high cholesterol, denies poor circulation, denies heart failure, other cardiac issues, denies claudication, denies cold feet, denies peripheral arterial stent. Respiratory: The patient denies tuberculosis, denies pneumonia, denies frequent cough, denies pulmonary embolism, denies shortness of breath, and denies coughing up blood. Gastrointestinal: The patient denies difficulty swallowing, denies acid reflux, denies ulcers, denies vomiting, denies jaundice/hepatitis, denies gallbladder problems, denies black or tarry stools, denies hemorrhoids, denies bleeding from rectum, denies diverticulitis, denies constipation, denies diarrhea, denies loss of stool control, and NOTES hernias. Kidney/Bladder: The patient denies kidney stones, denies urine infections, and denies bloody urine. Skin: The patient denies a history of skin cancer, denies bleeding/changing moles, and denies a history of skin rash. Neurologic: The patient denies a history of epilepsy/convulsions, denies headaches, denies head/spinal injuries, and denies stroke/TIA. Psychiatric: The patient denies psychiatric medications, denies depression, and denies voices, NOTES substance abuse. Endocrine: The patient denies thyroid disorders, denies diabetes, and denies hormonal problems. Hematologic: The patient denies a history of bruising, denies bleeding, and denies anemia, denies blood clots. Infections: The patient denies a history of measles and mumps, denies rheumatic fever, and denies sexually transmitted diseases. Musculoskeletal: The patient denies back pain/injury, denies back problems, denies sciatica, denies knee/foot trouble, denies arthritis, or denies gout. When was patient's last Mammogram screening? N/A Last Colonoscopy: 2017 Kasi Porter MD 02/27/2019 6:58 PM Signed HISTORY AND PHYSICAL Cesario Mg 1965 REFERRING PHYSICIAN: Self CHIEF COMPLAINT: Consult (Consult Rt inguinal hernia) HPI: Cesario is a 53 year old male with a complaint of a bulge and discomfort in his right inguinal region. The patient notes discomfort in this area with lifting and coughing. The symptoms had increased to the point he presented emergency department 2 days previously. The hernia was reducible in his symptoms of pain improved. He had no obstructive symptoms. He was referred for evaluation for hernia repair area he had noticed hernia probably more significantly for the past 5 days. He is uncertain how long the hernia has been present otherwise. 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 He would like to have this hernia of her discomfort is possible as this is his busy season. He is tobacco but states he has quit at various times for at least a year The patient notes no symptoms of bowel obstruction and denies nausea or vomiting. The patient was seen by the emergency room physician who felt the patient has a hernia. Cesario was referred for evaluation and treatment. PAST MEDICAL HISTORY Diagnosis Date - Alcohol abuse - Allergic rhinitis - Anxiety - HTN (hypertension) - Hyperlipidemia - Sleep apnea PAST SURGICAL HISTORY Procedure Laterality Date - COLONOSCOPY 11/2017 5 yr - REPAIR UMBILICAL HERNIA 03/2018 Current Outpatient Medications: citalopram (CELEXA) 20 mg tablet Take 20 mg by mouth once daily. lisinopril-hydrochlor othiazide (PRINZIDE, ZESTORETIC) 20-25 mg per tablet Take 1 tablet by mouth once daily. rosuvastatin (CRESTOR) 40 mg tablet Take 40 mg by mouth once daily. amLODIPine (NORVASC) 5 mg tablet Take 5 mg by mouth once daily. naltrexone HCl (NALTREXONE ORAL) Take by mouth. thiamine (VITAMIN B1) 100 mg tablet Take 100 mg by mouth once daily. fluticasone (ALLERGY RELIEF, FLUTICASONE,) 50 mcg/actuation nasal spray Use 1 Henderson in each nostril once daily. ZINC ORAL Take by mouth. ascorbic acid, vitamin C, 500 mg cap Take by mouth. MULTI-VITAMIN ORAL Take by mouth. POTASSIUM GLUCONATE ORAL Take by mouth. Lysine 1,000 mg tab Take by mouth. cyanocobalamin (VITAMIN B-12) 1,000 mcg tab Take 1,000 mcg by mouth once daily. No current facility-administered medications for this visit. ALLERGIES: Patient has no known allergies. PERSONAL HISTORY: Social History Socioeconomic History Marital status: Single Spouse name: Not on file Number of children: Not on file Years of education: Not on file Highest education level: Not on file Social Needs Financial resource strain: Not on file Food insecurity - worry: Not on file Food insecurity - inability: Not on file Transportation needs - medical: Not on file Transportation needs - non-medical: Not on file Occupational History Not on file Tobacco Use Smoking status: Former Smoker Smokeless tobacco: Current User Types: Chew Tobacco comment: 1-1/2 cans / day Substance and Sexual Activity Alcohol use: Not on file Drug use: Not on file Sexual activity: Not on file Other Topics Concerns: Not on file Social History Narrative Not on file FAMILY HISTORY: No family history on file. REVIEW OF SYMPTOMS: The review of systems data was entered by the nurse and reviewed by nh Nursing Notes: Kasi Portillo LPN 02/27/2019 3:20 PM Signed REVIEW OF SYSTEMS: General: The patient denies fatigue, denies weight loss, denies weight gain, denies feeling hot, and denies feelings of cold. Eyes: The patient denies glaucoma, denies eye injury/surgery, wears glasses or contacts. Ear/Nose/Throat: The patient NOTES allergies, denies hayfever, denies ear infections, and denies bloody noses. Cardiovascular: The patient denies chest pain, denies heart disease, NOTES high blood pressure,denies cardiac stent, denies prior heart attack, denies irregular heart beat, NOTES high cholesterol, denies poor circulation, denies heart failure, other cardiac issues, denies claudication, denies cold feet, denies peripheral arterial stent. Respiratory: The patient denies tuberculosis, denies pneumonia, denies frequent cough, denies pulmonary embolism, denies shortness of breath, and denies coughing up blood. Gastrointestinal: The patient denies difficulty swallowing, denies acid reflux, denies ulcers, denies vomiting, denies jaundice/hepatitis, denies gallbladder problems, denies black or tarry stools, denies hemorrhoids, denies bleeding from rectum, denies diverticulitis, denies constipation, denies diarrhea, denies loss of stool control, and NOTES hernias. Kidney/Bladder: The patient denies kidney stones, denies urine infections, and denies bloody urine. Skin: The patient denies a history of skin cancer, denies bleeding/changing moles, and denies a history of skin rash. Neurologic: The patient denies a history of epilepsy/convulsions, denies headaches, denies head/spinal injuries, and denies stroke/TIA. Psychiatric: The patient denies psychiatric medications, denies depression, and denies voices, NOTES substance abuse. Endocrine: The patient denies thyroid disorders, denies diabetes, and denies hormonal problems. Hematologic: The patient denies a history of bruising, denies bleeding, and denies anemia, denies blood clots. Infections: The patient denies a history of measles and mumps, denies rheumatic fever, and denies sexually transmitted diseases. Musculoskeletal: The patient denies back pain/injury, denies back problems, denies sciatica, denies knee/foot trouble, denies arthritis, or denies gout. When was patient's last Mammogram screening? N/A Last Colonoscopy: 2018 [facility] PHYSICAL EXAMINATION: General: The patient is 53 year old male, well nourished, well hydrated in no acute distress. The patient is oriented to time, place, and person. VITALS: Blood pressure 138/78, pulse 96, temperature 36.8 ?C (98.2 ?F), height 180.3 cm (5' 11), weight 72.6 kg (160 lb), SpO2 97 %. Body mass index is 22.32 kg/m?. HEENT: Normal cephalic, ataumatic, pupils are equally round, sclera are anicteric, mucous membranes are moist, oropharynx is clear. Neck has no masses, asymmetry or lymphadenopathy. Thyroid is unremarkable. Respiratory: Clear to auscultation and percussion. Normal respiratory excursion and pattern. Cardiac: Examination is regular rate and rhythm. Abdominal exam: Soft, nontender, with no palpable masses. No hepatosplenomegaly. A small, reducible right inguinal hernia, no left inguinal or umbilical hernias are noted Rectal exam: exam deferred Extremities: no clubbing, cyanosis or edema. No adenopathy. Other: LABORATORY VALUES: As Noted RADIOLOGIC STUDIES: As Noted Assessment IMPRESSION: right inguinal hernia PLAN: My plan is to perform a open right inguinal hernia repair with mesh. The planned surgical procedure was discussed extensively with the patient. The risks, benefits, anticipated outcomes and possible complications were mentioned. Cesario newtonands that all hernia repair surgery has a chance of recurrence and/or chronic post operative pain. My staff has also explained the procedure in understandable terms and the patient was given the option to take printed material concerning the planned procedure. The patient had the opportunity to ask questions concerning the planned procedure. The patient freely consents to the planned procedure. All tobacco/nicotine use needs to be completely stopped at least 4 weeks prior to surgery and not used in any form for 8 weeks following surgery due to nicotine's prevention of appropriate wound healing Diagnoses: (K40.90) Non-recurrent unilateral inguinal hernia without obstruction or gangrene (primary encounter diagnosis) Anticipated CPT Code: open right inguinal hernia repair with mesh - 83518-931 Anticipated Anesthetic: MAC with local Patient weight: Blood pressure 138/78, pulse 96, temperature 36.8 ?C (98.2 ?F), height 180.3 cm (5' 11), weight 72.6 kg (160 lb), SpO2 97 %. BMI: Body mass index is 22.32 kg/m?. Planned antibiotic: Ancef 2gm IVPB soil conservation aide to OR SCDs needed - Yes Return to Clinic: The patient is instructed to follow-up with me 1 week post operatively. Warren Porter MD Referring Provider: SELF [[id number]] Allergies As of Date: 02/27/2019 (No Known Allergies) Date Reviewed: 02/27/2019 Reviewed by: Kasi Portillo LPN - Fully Assessed Reason for Visit: Consult [173] Cmt: Consult Rt inguinal hernia Primary Visit Diagnosis:Non-recurre nt unilateral inguinal hernia without obstruction or gangrene [K40.90] Prescriptions as of 02/27/2019 Sig: CITALOPRAM 20 MG TABLET Take 20 mg by mouth once brett* LISINOPRIL 20 MG-HYDROCHLOROT* Take 1 tablet by mouth once d* ROSUVASTATIN 40 MG TABLET Take 40 mg by mouth once brett* AMLODIPINE 5 MG TABLET Take 5 mg by mouth once daily. NALTREXONE ORAL Take by mouth. THIAMINE HCL (VITAMIN B1) 100* Take 100 mg by mouth once terrie* FLUTICASONE PROPIONATE 50 MCG* Use 1 Henderson in each nostril o* ZINC ORAL Take by mouth. ASCORBIC ACID (VITAMIN C) 500* Take by mouth. MULTI-VITAMIN ORAL Take by mouth. POTASSIUM GLUCONATE ORAL Take by mouth. LYSINE 1,000 MG TABLET Take by mouth. CYANOCOBALAMIN (VIT B-12) 1,0* Take 1,000 mcg by mouth once * Problem List As Of Date: 02/27/2019 (None) Visit Notes: >> Kasi Portillo LPN vincent Feb 27, 2019 3:19 PM Status: Signed REVIEW OF SYSTEMS: General: The patient denies fatigue, denies weight loss, denies weight gain, denies feeling hot, and denies feelings of cold. Eyes: The patient denies glaucoma, denies eye injury/surgery, wears glasses or contacts. Ear/Nose/Throat: The patient NOTES allergies, denies hayfever, denies ear infections, and denies bloody noses. Cardiovascular: The patient denies chest pain, denies heart disease, NOTES high blood pressure,denies cardiac stent, denies prior heart attack, denies irregular heart beat, NOTES high cholesterol, denies poor circulation, denies heart failure, other cardiac issues, denies claudication, denies cold feet, denies peripheral arterial stent. Respiratory: The patient denies tuberculosis, denies pneumonia, denies frequent cough, denies pulmonary embolism, denies shortness of breath, and denies coughing up blood. Gastrointestinal: The patient denies difficulty swallowing, denies acid reflux, denies ulcers, denies vomiting, denies jaundice/hepatitis, denies gallbladder problems, denies black or tarry stools, denies hemorrhoids, denies bleeding from rectum, denies diverticulitis, denies constipation, denies diarrhea, denies loss of stool control, and NOTES hernias. Kidney/Bladder: The patient denies kidney stones, denies urine infections, and denies bloody urine. Skin: The patient denies a history of skin cancer, denies bleeding/changing moles, and denies a history of skin rash. Neurologic: The patient denies a history of epilepsy/convulsions, denies headaches, denies head/spinal injuries, and denies stroke/TIA. Psychiatric: The patient denies psychiatric medications, denies depression, and denies voices, NOTES substance abuse. Endocrine: The patient denies thyroid disorders, denies diabetes, and denies hormonal problems. Hematologic: The patient denies a history of bruising, denies bleeding, and denies anemia, denies blood clots. Infections: The patient denies a history of measles and mumps, denies rheumatic fever, and denies sexually transmitted diseases. Musculoskeletal: The patient denies back pain/injury, denies back problems, denies sciatica, denies knee/foot trouble, denies arthritis, or denies gout. When was patient's last Mammogram screening? N/A Last Colonoscopy: 2017 Kasi Portillo [employer] Encounter Status:Closed by WARREN PORTER MD on 02/27/19 [facility] HOSPon 02-27-2019 [facility] Patient:Balaji Mg MRN: Height:5' 11(1.803 m) Weight:159 lb (72.122 kg) Outpatient Medications as of 03/07/19: citalopram (CELEXA) 20 mg tablet lisinopril-hydrochlor othiazide (PRINZIDE, ZESTORETIC) 20-25 mg per tablet rosuvastatin (CRESTOR) 40 mg tablet amLODIPine (NORVASC) 5 mg tablet naltrexone HCl (NALTREXONE ORAL) thiamine (VITAMIN B1) 100 mg tablet fluticasone (ALLERGY RELIEF, FLUTICASONE,) 50 mcg/actuation nasal spray ZINC ORAL ascorbic acid, vitamin C, 500 mg cap MULTI-VITAMIN ORAL POTASSIUM GLUCONATE ORAL Lysine 1,000 mg tab cyanocobalamin (VITAMIN B-12) 1,000 mcg tab Admission/Clinic Administered Medications as of 03/07/19: lactated ringers infusion Problem List: Essential hypertension [I10] Mixed hyperlipidemia [E78.2] NUHA (obstructive sleep apnea) [G47.33] Former smoker [Z87.891] ETOH abuse [F10.10] Anxiety [F41.9] Inguinal hernia without obstruction or gangrene [K40.90] Allergies: No Known Allergies Date Verified:03/07/19 Lab Values No results within the last 30 days for the following basenames: K,HCT Progress Notes ([facility]): Barrington Espinal 02/27/2019 3:30 PM Signed [facility] Barrington Espinal Progress Notes [facility] Kasi Portillo LPN 02/27/2019 3:20 PM Signed REVIEW OF SYSTEMS: General: The patient denies fatigue, denies weight loss, denies weight gain, denies feeling hot, and denies feelings of cold. Eyes: The patient denies glaucoma, denies eye injury/surgery, wears glasses or contacts. Ear/Nose/Throat: The patient NOTES allergies, denies hayfever, denies ear infections, and denies bloody noses. Cardiovascular: The patient denies chest pain, denies heart disease, NOTES high blood pressure,denies cardiac stent, denies prior heart attack, denies irregular heart beat, NOTES high cholesterol, denies poor circulation, denies heart failure, other cardiac issues, denies claudication, denies cold feet, denies peripheral arterial stent. Respiratory: The patient denies tuberculosis, denies pneumonia, denies frequent cough, denies pulmonary embolism, denies shortness of breath, and denies coughing up blood. Gastrointestinal: The patient denies difficulty swallowing, denies acid reflux, denies ulcers, denies vomiting, denies jaundice/hepatitis, denies gallbladder problems, denies black or tarry stools, denies hemorrhoids, denies bleeding from rectum, denies diverticulitis, denies constipation, denies diarrhea, denies loss of stool control, and NOTES hernias. Kidney/Bladder: The patient denies kidney stones, denies urine infections, and denies bloody urine. Skin: The patient denies a history of skin cancer, denies bleeding/changing moles, and denies a history of skin rash. Neurologic: The patient denies a history of epilepsy/convulsions, denies headaches, denies head/spinal injuries, and denies stroke/TIA. Psychiatric: The patient denies psychiatric medications, denies depression, and denies voices, NOTES substance abuse. Endocrine: The patient denies thyroid disorders, denies diabetes, and denies hormonal problems. Hematologic: The patient denies a history of bruising, denies bleeding, and denies anemia, denies blood clots. Infections: The patient denies a history of measles and mumps, denies rheumatic fever, and denies sexually transmitted diseases. Musculoskeletal: The patient denies back pain/injury, denies back problems, denies sciatica, denies knee/foot trouble, denies arthritis, or denies gout. When was patient's last Mammogram screening? N/A Last Colonoscopy: 2017 Kasi Porter MD 02/27/2019 6:58 PM Signed HISTORY AND PHYSICAL Cesario Mg 1965 REFERRING PHYSICIAN: Self CHIEF COMPLAINT: Consult (Consult Rt inguinal hernia) HPI: Cesario is a 53 year old male with a complaint of a bulge and discomfort in his right inguinal region. The patient notes discomfort in this area with lifting and coughing. The symptoms had increased to the point he presented emergency department 2 days previously. The hernia was reducible in his symptoms of pain improved. He had no obstructive symptoms. He was referred for evaluation for hernia repair area he had noticed hernia probably more significantly for the past 5 days. He is uncertain how long the hernia has been present otherwise. 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 He would like to have this hernia of her discomfort is possible as this is his busy season. He is tobacco but states he has quit at various times for at least a year The patient notes no symptoms of bowel obstruction and denies nausea or vomiting. The patient was seen by the emergency room physician who felt the patient has a hernia. Cesario was referred for evaluation and treatment. PAST MEDICAL HISTORY Diagnosis Date - Alcohol abuse - Allergic rhinitis - Anxiety - HTN (hypertension) - Hyperlipidemia - Sleep apnea PAST SURGICAL HISTORY Procedure Laterality Date - COLONOSCOPY 11/2017 5 yr - REPAIR UMBILICAL HERNIA 03/2018 Current Outpatient Medications: citalopram (CELEXA) 20 mg tablet Take 20 mg by mouth once daily. lisinopril-hydrochlor othiazide (PRINZIDE, ZESTORETIC) 20-25 mg per tablet Take 1 tablet by mouth once daily. rosuvastatin (CRESTOR) 40 mg tablet Take 40 mg by mouth once daily. amLODIPine (NORVASC) 5 mg tablet Take 5 mg by mouth once daily. naltrexone HCl (NALTREXONE ORAL) Take by mouth. thiamine (VITAMIN B1) 100 mg tablet Take 100 mg by mouth once daily. fluticasone (ALLERGY RELIEF, FLUTICASONE,) 50 mcg/actuation nasal spray Use 1 Henderson in each nostril once daily. ZINC ORAL Take by mouth. ascorbic acid, vitamin C, 500 mg cap Take by mouth. MULTI-VITAMIN ORAL Take by mouth. POTASSIUM GLUCONATE ORAL Take by mouth. Lysine 1,000 mg tab Take by mouth. cyanocobalamin (VITAMIN B-12) 1,000 mcg tab Take 1,000 mcg by mouth once daily. No current facility-administered medications for this visit. ALLERGIES: Patient has no known allergies. PERSONAL HISTORY: Social History Socioeconomic History Marital status: Single Spouse name: Not on file Number of children: Not on file Years of education: Not on file Highest education level: Not on file Social Needs Financial resource strain: Not on file Food insecurity - worry: Not on file Food insecurity - inability: Not on file Transportation needs - medical: Not on file Transportation needs - non-medical: Not on file Occupational History Not on file Tobacco Use Smoking status: Former Smoker Smokeless tobacco: Current User Types: Chew Tobacco comment: 1-1/2 cans / day Substance and Sexual Activity Alcohol use: Not on file Drug use: Not on file Sexual activity: Not on file Other Topics Concerns: Not on file Social History Narrative Not on file FAMILY HISTORY: No family history on file. REVIEW OF SYMPTOMS: The review of systems data was entered by the nurse and reviewed by nh Nursing Notes: Kasi Portillo LPN 02/27/2019 3:20 PM Signed REVIEW OF SYSTEMS: General: The patient denies fatigue, denies weight loss, denies weight gain, denies feeling hot, and denies feelings of cold. Eyes: The patient denies glaucoma, denies eye injury/surgery, wears glasses or contacts. Ear/Nose/Throat: The patient NOTES allergies, denies hayfever, denies ear infections, and denies bloody noses. Cardiovascular: The patient denies chest pain, denies heart disease, NOTES high blood pressure,denies cardiac stent, denies prior heart attack, denies irregular heart beat, NOTES high cholesterol, denies poor circulation, denies heart failure, other cardiac issues, denies claudication, denies cold feet, denies peripheral arterial stent. Respiratory: The patient denies tuberculosis, denies pneumonia, denies frequent cough, denies pulmonary embolism, denies shortness of breath, and denies coughing up blood. Gastrointestinal: The patient denies difficulty swallowing, denies acid reflux, denies ulcers, denies vomiting, denies jaundice/hepatitis, denies gallbladder problems, denies black or tarry stools, denies hemorrhoids, denies bleeding from rectum, denies diverticulitis, denies constipation, denies diarrhea, denies loss of stool control, and NOTES hernias. Kidney/Bladder: The patient denies kidney stones, denies urine infections, and denies bloody urine. Skin: The patient denies a history of skin cancer, denies bleeding/changing moles, and denies a history of skin rash. Neurologic: The patient denies a history of epilepsy/convulsions, denies headaches, denies head/spinal injuries, and denies stroke/TIA. Psychiatric: The patient denies psychiatric medications, denies depression, and denies voices, NOTES substance abuse. Endocrine: The patient denies thyroid disorders, denies diabetes, and denies hormonal problems. Hematologic: The patient denies a history of bruising, denies bleeding, and denies anemia, denies blood clots. Infections: The patient denies a history of measles and mumps, denies rheumatic fever, and denies sexually transmitted diseases. Musculoskeletal: The patient denies back pain/injury, denies back problems, denies sciatica, denies knee/foot trouble, denies arthritis, or denies gout. When was patient's last Mammogram screening? N/A Last Colonoscopy: 2017 [facility] PHYSICAL EXAMINATION: General: The patient is 53 year old male, well nourished, well hydrated in no acute distress. The patient is oriented to time, place, and person. VITALS: Blood pressure 138/78, pulse 96, temperature 36.8 ?C (98.2 ?F), height 180.3 cm (5' 11), weight 72.6 kg (160 lb), SpO2 97 %. Body mass index is 22.32 kg/m?. HEENT: Normal cephalic, ataumatic, pupils are equally round, sclera are anicteric, mucous membranes are moist, oropharynx is clear. Neck has no masses, asymmetry or lymphadenopathy. Thyroid is unremarkable. Respiratory: Clear to auscultation and percussion. Normal respiratory excursion and pattern. Cardiac: Examination is regular rate and rhythm. Abdominal exam: Soft, nontender, with no palpable masses. No hepatosplenomegaly. A small, reducible right inguinal hernia, no left inguinal or umbilical hernias are noted Rectal exam: exam deferred Extremities: no clubbing, cyanosis or edema. No adenopathy. Other: LABORATORY VALUES: As Noted RADIOLOGIC STUDIES: As Noted Assessment IMPRESSION: right inguinal hernia PLAN: My plan is to perform a open right inguinal hernia repair with mesh. The planned surgical procedure was discussed extensively with the patient. The risks, benefits, anticipated outcomes and possible complications were mentioned. Cesario newtonands that all hernia repair surgery has a chance of recurrence and/or chronic post operative pain. My staff has also explained the procedure in understandable terms and the patient was given the option to take printed material concerning the planned procedure. The patient had the opportunity to ask questions concerning the planned procedure. The patient freely consents to the planned procedure. All tobacco/nicotine use needs to be completely stopped at least 4 weeks prior to surgery and not used in any form for 8 weeks following surgery due to nicotine's prevention of appropriate wound healing Diagnoses: (K40.90) Non-recurrent unilateral inguinal hernia without obstruction or gangrene (primary encounter diagnosis) Anticipated CPT Code: open right inguinal hernia repair with mesh - [id number] Anticipated Anesthetic: MAC with local Patient weight: Blood pressure 138/78, pulse 96, temperature 36.8 ?C (98.2 ?F), height 180.3 cm (5' 11), weight 72.6 kg (160 lb), SpO2 97 %. BMI: Body mass index is 22.32 kg/m?. Planned antibiotic: Ancef 2gm IVPB soil conservation aide to OR SCDs needed - Yes Return to Clinic: The patient is instructed to follow-up with me 1 week post operatively. Warren Porter MD [facility] PROGRESSon 02-27-2019 PROGRESS HNO ID: [id number] Author: Warren Porter Service: ? Author Type: Physician Type: Progress Notes Filed: 02/27/2019 6:58 PM Note Text: HISTORY AND PHYSICAL Cesario Mg 1965 REFERRING PHYSICIAN: Self CHIEF COMPLAINT: Consult (Consult Rt inguinal hernia) HPI: Cesario is a 53 year old male with a complaint of a bulge and discomfort in his right inguinal region. The patient notes discomfort in this area with lifting and coughing. The symptoms had increased to the point he presented emergency department 2 days previously. The hernia was reducible in his symptoms of pain improved. He had no obstructive symptoms. He was referred for evaluation for hernia repair area he had noticed hernia probably more significantly for the past 5 days. He is uncertain how long the hernia has been present otherwise. 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 He would like to have this hernia of her discomfort is possible as this is his busy season. He is tobacco but states he has quit at various times for at least a year The patient notes no symptoms of bowel obstruction and denies nausea or vomiting. The patient was seen by the emergency room physician who felt the patient has a hernia. Cesario was referred for evaluation and treatment. PAST MEDICAL HISTORY Diagnosis Date - Alcohol abuse - Allergic rhinitis - Anxiety - HTN (hypertension) - Hyperlipidemia - Sleep apnea PAST SURGICAL HISTORY Procedure Laterality Date - COLONOSCOPY 11/2017 5 yr - REPAIR UMBILICAL HERNIA 03/2018 Current Outpatient Medications: citalopram (CELEXA) 20 mg tablet Take 20 mg by mouth once daily. lisinopril-hydrochlor othiazide (PRINZIDE, ZESTORETIC) 20-25 mg per tablet Take 1 tablet by mouth once daily. rosuvastatin (CRESTOR) 40 mg tablet Take 40 mg by mouth once daily. amLODIPine (NORVASC) 5 mg tablet Take 5 mg by mouth once daily. naltrexone HCl (NALTREXONE ORAL) Take by mouth. thiamine (VITAMIN B1) 100 mg tablet Take 100 mg by mouth once daily. fluticasone (ALLERGY RELIEF, FLUTICASONE,) 50 mcg/actuation nasal spray Use 1 Henderson in each nostril once daily. ZINC ORAL Take by mouth. ascorbic acid, vitamin C, 500 mg cap Take by mouth. MULTI-VITAMIN ORAL Take by mouth. POTASSIUM GLUCONATE ORAL Take by mouth. Lysine 1,000 mg tab Take by mouth. cyanocobalamin (VITAMIN B-12) 1,000 mcg tab Take 1,000 mcg by mouth once daily. No current facility-administered medications for this visit. ALLERGIES: Patient has no known allergies. PERSONAL HISTORY: Social History Socioeconomic History Marital status: Single Spouse name: Not on file Number of children: Not on file Years of education: Not on file Highest education level: Not on file Social Needs Financial resource strain: Not on file Food insecurity - worry: Not on file Food insecurity - inability: Not on file Transportation needs - medical: Not on file Transportation needs - non-medical: Not on file Occupational History Not on file Tobacco Use Smoking status: Former Smoker Smokeless tobacco: Current User Types: Chew Tobacco comment: 1-1/2 cans / day Substance and Sexual Activity Alcohol use: Not on file Drug use: Not on file Sexual activity: Not on file Other Topics Concerns: Not on file Social History Narrative Not on file FAMILY HISTORY: No family history on file. REVIEW OF SYMPTOMS: The review of systems data was entered by the nurse and reviewed by nh Nursing Notes: Kasi Portillo LPN 02/27/2019 3:20 PM Signed REVIEW OF SYSTEMS: General: The patient denies fatigue, denies weight loss, denies weight gain, denies feeling hot, and denies feelings of cold. Eyes: The patient denies glaucoma, denies eye injury/surgery, wears glasses or contacts. Ear/Nose/Throat: The patient NOTES allergies, denies hayfever, denies ear infections, and denies bloody noses. Cardiovascular: The patient denies chest pain, denies heart disease, NOTES high blood pressure,denies cardiac stent, denies prior heart attack, denies irregular heart beat, NOTES high cholesterol, denies poor circulation, denies heart failure, other cardiac issues, denies claudication, denies cold feet, denies peripheral arterial stent. Respiratory: The patient denies tuberculosis, denies pneumonia, denies frequent cough, denies pulmonary embolism, denies shortness of breath, and denies coughing up blood. Gastrointestinal: The patient denies difficulty swallowing, denies acid reflux, denies ulcers, denies vomiting, denies jaundice/hepatitis, denies gallbladder problems, denies black or tarry stools, denies hemorrhoids, denies bleeding from rectum, denies diverticulitis, denies constipation, denies diarrhea, denies loss of stool control, and NOTES hernias. Kidney/Bladder: The patient denies kidney stones, denies urine infections, and denies bloody urine. Skin: The patient denies a history of skin cancer, denies bleeding/changing moles, and denies a history of skin rash. Neurologic: The patient denies a history of epilepsy/convulsions, denies headaches, denies head/spinal injuries, and denies stroke/TIA. Psychiatric: The patient denies psychiatric medications, denies depression, and denies voices, NOTES substance abuse. Endocrine: The patient denies thyroid disorders, denies diabetes, and denies hormonal problems. Hematologic: The patient denies a history of bruising, denies bleeding, and denies anemia, denies blood clots. Infections: The patient denies a history of measles and mumps, denies rheumatic fever, and denies sexually transmitted diseases. Musculoskeletal: The patient denies back pain/injury, denies back problems, denies sciatica, denies knee/foot trouble, denies arthritis, or denies gout. When was patient's last Mammogram screening? N/A Last Colonoscopy: 2018 Kasi Portillo [employer] PHYSICAL EXAMINATION: General: The patient is 53 year old male, well nourished, well hydrated in no acute distress. The patient is oriented to time, place, and person. VITALS: Blood pressure 138/78, pulse 96, temperature 36.8 ?C (98.2 ?F), height 180.3 cm (5' 11), weight 72.6 kg (160 lb), SpO2 97 %. Body mass index is 22.32 kg/m?. HEENT: Normal cephalic, ataumatic, pupils are equally round, sclera are anicteric, mucous membranes are moist, oropharynx is clear. Neck has no masses, asymmetry or lymphadenopathy. Thyroid is unremarkable. Respiratory: Clear to auscultation and percussion. Normal respiratory excursion and pattern. Cardiac: Examination is regular rate and rhythm. Abdominal exam: Soft, nontender, with no palpable masses. No hepatosplenomegaly. A small, reducible right inguinal hernia, no left inguinal or umbilical hernias are noted Rectal exam: exam deferred Extremities: no clubbing, cyanosis or edema. No adenopathy. Other: LABORATORY VALUES: As Noted RADIOLOGIC STUDIES: As Noted Assessment IMPRESSION: right inguinal hernia PLAN: My plan is to perform a open right inguinal hernia repair with mesh. The planned surgical procedure was discussed extensively with the patient. The risks, benefits, anticipated outcomes and possible complications were mentioned. Cesario smart that all hernia repair surgery has a chance of recurrence and/or chronic post operative pain. My staff has also explained the procedure in understandable terms and the patient was given the option to take printed material concerning the planned procedure. The patient had the opportunity to ask questions concerning the planned procedure. The patient freely consents to the planned procedure. All tobacco/nicotine use needs to be completely stopped at least 4 weeks prior to surgery and not used in any form for 8 weeks following surgery due to nicotine's prevention of appropriate wound healing Diagnoses: (K40.90) Non-recurrent unilateral inguinal hernia without obstruction or gangrene (primary encounter diagnosis) Anticipated CPT Code: open right inguinal hernia repair with mesh - 36052-961 Anticipated Anesthetic: MAC with local Patient weight: Blood pressure 138/78, pulse 96, temperature 36.8 ?C (98.2 ?F), height 180.3 cm (5' 11), weight 72.6 kg (160 lb), SpO2 97 %. BMI: Body mass index is 22.32 kg/m?. Planned antibiotic: Ancef 2gm IVPB soil conservation aide to OR SCDs needed - Yes Return to Clinic: The patient is instructed to follow-up with me 1 week post operatively. Warren Porter MD [facility] Vital Signs Date Time Vital Sign Value Performing Clinician Eveline gonzalez 05-12-2024 11:08-0400 Body temperature 98.06 [degF] GREGORY RIOS MD [facility] 05-12-2024 11:08-0400 Diastolic Blood Pressure Non-Invasive 95 mm[Hg] GREGORY RIOS MD [facility] 05-12-2024 11:08-0400 Heart rate 88 /min GREGORY RIOS MD [facility] 05-12-2024 11:08-0400 Mean blood pressure 111 mm[Hg] GREGORY RIOS MD [facility] 05-12-2024 11:08-0400 Reason For Taking VItal Signs GREGORY RIOS MD [facility] 05-12-2024 11:08-0400 Respiratory rate 20 /min GREGORY RIOS MD [facility] 05-12-2024 11:08-0400 Systolic Blood Pressure Non-Invasive 164 mm[Hg] GREGORY RIOS MD [facility] 05-12-2024 10:10-0400 Heart rate 89 /min GREGORY RIOS MD [facility] 05-12-2024 09:08-0400 Diastolic Blood Pressure Non-Invasive 96 mm[Hg] GREGORY RIOS MD [facility] 05-12-2024 09:08-0400 Heart rate 86 /min GREGORY RIOS MD [facility] 05-12-2024 09:08-0400 Systolic Blood Pressure Non-Invasive 136 mm[Hg] GREGORY RIOS MD [facility] 05-12-2024 07:30-0400 Body temperature 98.06 [degF] GREGORY RIOS MD [facility] 05-12-2024 07:30-0400 Diastolic Blood Pressure Non-Invasive 96 mm[Hg] GREGORY RIOS MD [facility] 05-12-2024 07:30-0400 Mean blood pressure 108 mm[Hg] GREGORY RIOS MD [facility] 05-12-2024 07:30-0400 Reason For Taking VItal Signs GREGORY RIOS MD [facility] 05-12-2024 07:30-0400 Respiratory rate 18 /min GREGORY RIOS MD [facility] 05-12-2024 07:30-0400 Systolic Blood Pressure Non-Invasive 140 mm[Hg] GREGORY RIOS MD [facility] 05-12-2024 04:00-0400 Body temperature 98.6 [degF] GREGORY RIOS MD [facility] 05-12-2024 04:00-0400 Mean blood pressure 94 mm[Hg] GREGORY RIOS MD [facility] 05-12-2024 04:00-0400 Respiratory rate 16 /min GREGORY RIOS MD [facility] 05-11-2024 22:30-0400 Reason For Taking VItal Signs GREGORY RIOS MD [facility] 05-10-2024 22:59-0400 Body height 180.3 cm GREGORY RIOS MD [facility] 05-10-2024 22:59-0400 Body weight 79.3 kg GREGORY RIOS MD [facility] 05-10-2024 22:59-0400 Body weight 24.39 kg/m2 GREGORY RIOS MD [facility] 05-10-2024 16:26-0400 Heart rate 76 /min DR HILARY CAMPOVERDE MD [facility] 05-10-2024 16:26-0400 Respiratory rate 16 /min DR HILARY CAMPOVERDE MD [facility] 05-10-2024 15:26-0400 Diastolic Blood Pressure Non-Invasive 62 mm[Hg] DR HILARY CAMPOVERDE MD [facility] 05-10-2024 15:26-0400 Heart rate 66 /min DR HILARY CAMPOVERDE MD [facility] 05-10-2024 15:26-0400 Respiratory rate 16 /min DR HILARY CAMPOVERDE MD [facility] 05-10-2024 15:26-0400 Systolic Blood Pressure Non-Invasive 114 mm[Hg] DR HILARY CAMPOVERDE MD [facility] 05-10-2024 13:38-0400 Body temperature 98.06 [degF] DR HILARY CAMPOVERDE MD [facility] 05-10-2024 13:38-0400 Diastolic Blood Pressure Non-Invasive 62 mm[Hg] DR HILARY CAMPOVERDE MD [facility] 05-10-2024 13:38-0400 Heart rate 73 /min DR HILARY CAMPOVERDE MD [facility] 05-10-2024 13:38-0400 Respiratory rate 18 /min DR HILARY CAMPOVERDE MD [facility] 05-10-2024 13:38-0400 Systolic Blood Pressure Non-Invasive 101 mm[Hg] DR HILARY CAMPOVERDE MD [facility] Encounters Encounter Date Encounter Type Care Provider Facility Start: 05-14-2024 End: 05-14-2024 ambulatory DOMINIC MORTON DO Facility:[facility] Start: 05-14-2024 End: 05-14-2024 Patient encounter procedure JAMILA YI MD [facility] Start: 05-10-2024 End: 05-12-2024 Evaluation and management of inpatient GREGORY RIOS MD [facility] Start: 05-10-2024 End: 05-10-2024 Emergency department patient visit DR HILARY CAMPOVERDE MD [facility] Start: 02-24-2024 End: 02-24-2024 ambulatory Geeta Chavez Facility:[facility] Start: 05-17-2023 End: 05-17-2023 ambulatory [facility] Work Phone: Start: 05-17-2023 End: 05-17-2023 Patient encounter procedure [facility] Start: 04-27-2022 End: 04-27-[address] Geeta Chavez Work Phone: [facility] Start: 04-26-2022 End: 04-26-[address] Geeta Chavez Work Phone: [facility] Work Phone: Start: 04-26-2022 End: 04-26-[address] Geeta Chavez Work Phone: [facility] Start: 01-27-2022 End: 01-27-[address] Geeta Chavez Work Phone: [facility] Procedures Date Procedure Procedure Detail Performing Clinician Start: 01-07-2021 H/O: surgery History of loo p recorder Dr. Geeta Chavez Work Phone: Start: 03-07-2019 Inguinal hernia (disorder) DR HILARY CAMPOVERDE MD Comment on above: right BILATERAL Hernia of abdominal cavity (disorder) DR HILARY CAMPOVERDE MD Plan of Treatment Date Care Activity Detail Author Start: 05-17-2023 Assay of prostate specific antigen total ASSAY OF PSA TOTAL [facility] Immunizations Immunization Date Immunization Notes Care Provider Fa cility 06-04-2018 tetanus toxoid, redu belle diphtheria toxoid, and acellular pertussis vaccine, adsorbed; Translations: [Boostrix (Tdap)] DR HILARY CAMPOVERDE MD [facility] Payers Date Payer Category Payer Unknown [id number] 2024 Unknown [id number] 2024 Self-pay [id number] 1965 Unknown [id number] 1965 Unknown [id number] 1966 Unknown [id number] Unknown [facility] AUTH REQUIR ED SEE NOTE [id number] Unknown [id number] Social History Date Type Detail Facility Start: 11-12-2021 Tobacco smoking status NHIS Unknown if ever smoked [facility] Start: 11-20-2020 Heavy [facility] Start: 11-20-2020 None [facility] Start: 11-20-2020 Spouse/ Signif icant Other [facility] Start: 01-07-2021 Chew [facility] Start: 1965 Sex Assigned At Male W [facility] Tobacco Nicotine Use: CH EWS 1 CAN PER DAY. [facility] Tobacco smoking status Occasional tobacco smoker (finding) [facility] Functional Status Date Assessment Result Facility 05-12-2024 Functional Status Bed alert on, Door open, Room check performed [facility] 05-12-2024 Functional Status [facility] 05-12-2024 Functional Status [facility] 05-11-2024 Functional Status Refused [facility] 05-11-2024 Functional Status [facility] 05-11-2024 Functional Status Lunch Percent [address] [facility] 05-11-2024 Functional Status [facility] 05-11-2024 Functional Status [facility] 05-11-2024 Functional Status [facility] 05-10-2024 Functional Status Sensory Deficits None A [facility] 05-10-2024 Functional Status None [facility] 05-10-2024 Functional Status Awake [facility] 05-10-2024 Functional Status [facility] Mental Status Date Assessment Result Facility 05-12-2024 Mental Status Oriented x 4 [facility] 05-12-2024 Mental Status [facility] 05-11-2024 Mental Status [facility] 05-10-2024 Mental Status Orientation Oriented x 4 [facility] 05-10-2024 Mental Status [facility] Clinical Notes 01-07-2021 to 05-12-2024 Note Date & Type Note Facility 05-12-2024 Hospital Discharge instructions Patient Education 05/12/2024 11:51:51 Alcohol Withdrawal Syndrome, Yykz-io-Uprb Alcohol Withdrawal Syndrome When a person who drinks a lot of alcohol stops drinking, he or she may have unpleasant and serious symptoms. These symptoms are called alcohol withdrawal syndrome. This condition may be mild or severe. It can be life-threatening. It can cause: Shaking that you cannot control (tremor). Sweating. Headache. Feeling fearful, upset, grouchy, or depressed. Trouble sleeping (insomnia). Nightmares. Fast or uneven heartbeats (palpitations). Alcohol cravings. Feeling sick to your stomach (nausea). Throwing up (vomiting). Being bothered by light and sounds. Confusion. Trouble thinking clearly. Not being hungry (loss of appetite). Big changes in mood (mood swings). If you have all of the following symptoms at the same time, get help right away: High blood pressure. Fast heartbeat. Trouble breathing. Seizures. Seeing, hearing, feeling, smelling, or tasting things that are not there (hallucinations). These symptoms are known as delirium tremens (DTs). They must be treated at the hospital right away. Follow these instructions at home: Take smno-jdz-mguwepf and prescription medicines only as told by your doctor. This includes vitamins. Do not drink alcohol. Do not drive until your doctor says that this is safe for you. Have someone stay with you or be available in case you need help. This should be someone you trust. This person can help you with your symptoms. He or she can also help you to not drink. Drink enough fluid to keep your pee (urine) pale yellow. Think about joining a support group or a treatment program to help you stop drinking. Keep all follow-up visits as told by your doctor. This is important. Contact a doctor if: Your symptoms get worse. You cannot eat or drink without throwing up. You have a hard time not drinking alcohol. You cannot stop drinking alcohol. Get help right away if: You have fast or uneven heartbeats. You have chest pain. You have trouble breathing. You have a seizure for the first time. You see, hear, feel, smell, or taste something that is not there. You get very confused. Summary When a person who drinks a lot of alcohol stops drinking, he or she may have serious symptoms. This is called alcohol withdrawal syndrome. Delirium tremens (DTs) is a group of life-threatening symptoms. You should get help right away if you have these symptoms. Think about joining an alcohol support group or a treatment program. This information is not intended to replace advice given to you by your health care provider. Make sure you discuss any questions you have with your health care provider. Document Released: 02/07/2009 Document Revised: 08/04/2018 Document Reviewed: 04/28/2018 [employer] Patient Education 2020 DBVu. Follow Up Care 05/10/2024 17:49:59 With:Follow up with primary care provider Address:Unknown When:1-2 days [facility] 05-12-2024 Note Discharge Instructions Thank you for allowing [place] to assist you with your healthcare needs. The following is important discharge information regarding your hospital visit. Your Care Team DOMINIC MORTON DO What to do next Follow Up Appointments Follow Up with Follow up with primary care provider When:Within 1-2 days The Following Activity and Diet Have Been Ordered for You No qualifying data available. No qualifying data available. The Following Equipment Has Been Ordered for You No qualifying data available. The Following Treatments Have Been Ordered for You Discharge Labs Discharge Outpatient Labwork - Ordered -- bmp, hyponatremia, follow-up within: 1-2 days, Results Notify to: GEETA CHAVEZ MD, 05/12/24 11:39:00 EDT Discharge Radiology Discharge Outpatient Radiology - Ordered -- 2d echo, syncope, follow-up within: 1-2 weeks, Results Notify to: GEETA CHAVEZ MD, 05/12/24 11:38:00 EDT Other Therapies No qualifying data available. Post Acute Orders No qualifying data available. Someone Will Contact You Regarding These Home Health Referrals No home referrals have been ordered for you. No one will call you. Allergies NKA Medications Please ask your primary doctor or pharmacist before taking any other medication not listed, including over the counter drugs, herbal medications, vitamins and or supplements as they may interact with your home medications. What How Much When Instructions Last Dose New lisinopril (lisinopril 20 mg oral tablet) 1 tab(s) by mouth Once a day Pickup at [facility]/pharmacy #[id number] Unchanged amLODIPine (amLODIPine 5 mg oral tablet) 1 tab(s) by mouth Once a day Unchanged cetirizine 10 Milligram by mouth Once a day Unchanged multivitamin (Multivitamin) 1 tab(s) by mouth Every day Unchanged rosuvastatin (rosuvastatin 40 mg oral tablet) 0.5 Milligram by mouth Once a day Pharmacy Information [facility]/pharmacy #[id number]: [address], [place] [id number] [phone] What How Much When Comments Stop Taking ascorbic acid (Vitamin C 500 mg oral tablet) 1 tab(s) by mouth Once a day Stop Taking citalopram (citalopram 20 mg oral tablet) 1 tab(s) by mouth Once a day Stop Taking cyanocobalamin (Vitamin B12) 1,000 Microgram by mouth Once a day Stop Taking hydrochlorothiazide-lisinopril (hydrochlorothiazide-lisinopril 25 mg-20 mg oral tablet) 1 tab(s) by mouth Every day Stop Taking hydrOXYzine (hydrOXYzine hydrochloride 25 mg oral tablet) 1 tab(s) by mouth Every day Stop Taking lysine (lysine 1000 mg oral tablet) 1 tab(s) by mouth Every day Stop Taking naltrexone (naltrexone 50 mg oral tablet) 1 tab(s) by mouth Every day Stop Taking potassium chloride (potassium chloride 99 mg oral tablet) 1 tab(s) by mouth Once a day Take with food Stop Taking zinc sulfate (Zinc) 140 Milligram by mouth Once a day Please take this list to your next doctor s visit. Bring all medications you take, including over the counter medications, herbals and other supplements with you to your doctor s visit. Patients and families are reminded to discard old lists and to update any records with all medication providers or retail pharmacies. Education Materials Alcohol Withdrawal Syndrome When a person who drinks a lot of alcohol stops drinking, he or she may have unpleasant and serious symptoms. These symptoms are called alcohol withdrawal syndrome. This condition may be mild or severe. It can be life-threatening. It can cause: Shaking that you cannot control (tremor). Sweating. Headache. Feeling fearful, upset, grouchy, or depressed. Trouble sleeping (insomnia). Nightmares. Fast or uneven heartbeats (palpitations). Alcohol cravings. Feeling sick to your stomach (nausea). Throwing up (vomiting). Being bothered by light and sounds. Confusion. Trouble thinking clearly. Not being hungry (loss of appetite). Big changes in mood (mood swings). If you have all of the following symptoms at the same time, get help right away: High blood pressure. Fast heartbeat. Trouble breathing. Seizures. Seeing, hearing, feeling, smelling, or tasting things that are not there (hallucinations). These symptoms are known as delirium tremens (DTs). They must be treated at the hospital right away. Follow these instructions at home: Take geur-lfi-qlotkgn and prescription medicines only as told by your doctor. This includes vitamins. Do not drink alcohol. Do not drive until your doctor says that this is safe for you. Have someone stay with you or be available in case you need help. This should be someone you trust. This person can help you with your symptoms. He or she can also help you to not drink. Drink enough fluid to keep your pee (urine) pale yellow. Think about joining a support group or a treatment program to help you stop drinking. Keep all follow-up visits as told by your doctor. This is important. Contact a doctor if: Your symptoms get worse. You cannot eat or drink without throwing up. You have a hard time not drinking alcohol. You cannot stop drinking alcohol. Get help right away if: You have fast or uneven heartbeats. You have chest pain. You have trouble breathing. You have a seizure for the first time. You see, hear, feel, smell, or taste something that is not there. You get very confused. Summary When a person who drinks a lot of alcohol stops drinking, he or she may have serious symptoms. This is called alcohol withdrawal syndrome. Delirium tremens (DTs) is a group of life-threatening symptoms. You should get help right away if you have these symptoms. Think about joining an alcohol support group or a treatment program. This information is not intended to replace advice given to you by your health care provider. Make sure you discuss any questions you have with your health care provider. Document Released: 02/07/2009 Document Revised: 08/04/2018 Document Reviewed: 04/28/2018 [employer] Patient Education 2020 DBVu. Additional Information VACCINATE! IT SAVES LIVES! Members of the community who have not yet received the COVID-19 vaccine and would like to receive it can visit one of [facility] vaccine clinics. There are many vaccine clinic locations within the [facility]. For locations and available times, please visit https://gettheshot.coronavirus.[place]mi o.gov/. It is important to note that some COVID mobile vaccine clinics are held outdoors and may be canceled in rainy or stormy conditions. To learn more about pediatric vaccinations (ages 5-11), we invite you to visit the [facility] webpage. [email or web address] [email or web address] To learn more about the COVID-19 vaccine, we invite you to visit the CDC website for a list of frequently asked questions.https://www.cdc.gov/lee navirus/2019-ncov/vaccines/faq.htm ann marie [employer] Patient Portal Access Instructions: Stay connected with your healthcare team and access your personal medical information anytime with the [employer] Patient Portal. Please follow the directions below to create your [employer] account: 1.Access the email account you provided upon registration to the hospital/physician office.2.Look for an invitation email from [facility].3.Open the email and access the invitation link: Accept Invitation to [facility].4.Fill in the required swansno to create your account. To access your account, visit [email or web address]. Click the blue button labeled Access Patient Portal and then log in with the username and password that you created in the steps above. You will be able to view your test results, lab results, a summary of your visits, upcoming appointments and more. There is also a convenient messaging option where you can send secure messages to your provider. In addition, you will have the ability to download any documents or summaries to your computer and/or send the information securely to a physician. Remember that your healthcare information is confidential, so carefully consider who you will allow to register on the [place] [facility] Patient Portal for access to your information. You can also access the [place] [facility] Patient Portal on the [place] [facility] yael. Simply click on Patient Portal and then log into your account. If you would like to receive a full copy of your medical records, please contact the [facility] Medical Records Department by calling [phone], Tuesday through Tuesday between 8 a.m. and 4:30 p.m. HOW TO SAFELY DISPOSE OF PRESCRIPTION MEDICATIONS Please use one of the following methods to safely dispose of your unused medications. 1.Use a drug disposal kit: the drug disposal pouch allows you to safely discard your old and unused drugs. Ask your nurse to give you one when you are discharged.2.Visit a local take-back location: Many local pharmacies and police departments have programs that collect old and unwanted prescription drugs. Call your local pharmacy or go to http://Narrative.[facility]/5B9Ij3k to find one close to you.3.Make use of household items: Use cat litter or old coffee grounds to dispose medications if other options are not available. Mix your drugs with these household products, seal them in an airtight container and throw it into the garbage. Call [facility]: [phone] to be sure your drugs can be disposed of in this way. Some medicines may require a different approach.4.Never flush your medications down the toilet. IF YOU HAVE BEEN PRESCRIBED AN OPIOID FOR PAIN If you have been prescribed an opioid (such as hydrocodone, oxycodone or morphine), it is critical to understand the possible side effects and risks of opioid pain medications. Even when taken as directed, opioids can have several side effects including: Tolerance, meaning you might need to take more of a medication for the same pain relief. Nausea, vomiting and/or constipation. Sleepiness, dizziness, dry mouth, confusion, depression or itching. Physical dependence, meaning you have withdrawal symptoms when a medication is stopped, can develop within a few days. KNOW YOUR RESPONSIBILITIES It is important to know exactly how much and how often to take the opioid pain medications you are prescribed. Never take opioids in higher amounts or more often than prescribed. Do not combine opioids with alcohol or other drugs that cause drowsiness, such as benzodiazepines, also known as benzos, including diazepam and alprazolam, muscle relaxants or sleep aids. Never sell or share prescription opioids. This is illegal. Store opioids in a secure place and out of reach of others (including children, family, friends and visitors). The last page of this document has been signed and retained as a CHART COPY. Signatures Patient Education Materials Alcohol Withdrawal Syndrome, [id number] Medication Leaflets My discharge plan and instructions have been reviewed and explained to me and I,BALAJI MG understand my current condition and have read and understand these discharge instructions. I have received a written copy of the plan/instructions. If I have questions, I am aware that I should contact my doctor. Patient/Director Surgical Signature: Date/Time: Relationship to Patient: ___ Witness Name/Signature: Date/Time: [facility] 05-12-2024 Discharge summary Discharge Diagnosis Hypo-osmolality and hyponatremia (E87.1 - ICD-10-CM) Hyperlipidemia, unspecified (E78.5 - ICD-10-CM) Essential (primary) hypertension (I10 - ICD-10-CM) Hypokalemia (E87.6 - ICD-10-CM) Hypomagnesemia (E83.42 - ICD-10-CM) Ataxia, unspecified (R27.0 - ICD-10-CM) Alcohol abuse, uncomplicated (F10.10 - ICD-10-CM) Additional Orders: Ordered: BMP,05/12/24 14:00:00 EDT, Timed Study (collect at specified time), Blood, Once, Preferred Lab: [facility], Stop date 05/12/24 14:00:00 EDT Discontinued: Consult to Physician,05/12/24 7:56:00 EDT, QUINTEN PAGE MD, Routine, hyponatremia Ordered: Discharge Outpatient Labwork,bmp, hyponatremia, follow-up within: 1-2 days, Results Notify to: GEETA CHAVEZ MD, 05/12/24 11:39:00 EDT Ordered: Discharge Outpatient Radiology,2d echo, syncope, follow-up within: 1-2 weeks, Results Notify to: GEETA CHAVEZ MD, 05/12/24 11:38:00 EDT Ordered: amLODIPine,Start: 05/12/24 9:00:00 EDT, Dose = 5 mg, = 1 tab(s), Oral, qDay, 05/12/24 7:57:00 EDT Ordered: citalopram,Start: 05/12/24 9:00:00 EDT, Dose = 20 mg, = 1 tab(s), Oral, qDay, 05/12/24 7:57:00 EDT Ordered: lisinopril 20 mg oral tablet,Dose : 20 mg = 1 tab(s), Oral, qDay, # 30 tab(s), 0 Refill(s), Pharmacy: [facility]/pharmacy #[id number], 180.3, cm, 05/10/24 22:59:00 EDT, Height, kg, 05/10/24 22:59:00 EDT, Dosing Weight Hospital Course Patient is a pleasant male with a history of significant alcohol abuse who comes in after having a syncopal event at home. He was found to be severely hyponatremic and was admitted to the medical intensive care unit here at [facility]. His sodium was slowly corrected and there were plans for echocardiogram to further evaluate his syncope. On the morning of May 12, 2024 patient stated that he was going to be leaving the hospital but was willing to do outpatient follow-up. He was not deemed safe for discharge from the medical standpoint however we did order an outpatient echocardiogram as well as outpatient BMP. We have also adjusted his home antihypertensive medication from a hydrochlorothiazide lisinopril combination to just lisinopril monotherapy as certainly HCTZ with his history of alcohol abuse and hyponatremia is a suboptimal combination. We did review the discharge instructions with him as well as his family who was at bedside who will be taking him home and he chose to sign out AGAINST MEDICAL ADVICE on May 12, 2024. Allergies NKA Consults No qualifying data available. Objective Vitals and Measurements T: 36.7 C (Oral) TMIN: 36.7 C (Oral) TMAX: 37.5 C (Oral) HR: 88 (Monitored) RR: 20 BP: 164/95 SpO2: 97% Weight Dosing Weight: 79.3 kg (05/10/24) Code Status Code Status - Ordered -- 05/11/24 19:59:00 EDT, Full Code, Constant Order Discharge Date Patient left AGAINST MEDICAL ADVICE on May 12, 2024 Medications New Prescription lisinopril (lisinopril 20 mg oral tablet)1 tab(s) by mouth once a day. Refills: 0. Unchanged amLODIPine (amLODIPine 5 mg oral tablet)1 tab(s) by mouth once a day. [id number] Milligram by mouth once a day. multivitamin (Multivitamin)1 tab(s) by mouth every day. rosuvastatin (rosuvastatin 40 mg oral tablet)0.5 Milligram by mouth once a day. Discontinued ascorbic acid (Vitamin C 500 mg oral tablet)1 tab(s) by mouth once a day. citalopram (citalopram 20 mg oral tablet)1 tab(s) by mouth once a day. cyanocobalamin (Vitamin B12)1,000 Microgram by mouth once a day. hydrochlorothiazide-lisinopril (hydrochlorothiazide-lisinopril 25 mg-20 mg oral tablet)1 tab(s) by mouth every day. hydrOXYzine (hydrOXYzine hydrochloride 25 mg oral tablet)1 tab(s) by mouth every day. lysine (lysine 1000 mg oral tablet)1 tab(s) by mouth every day. naltrexone (naltrexone 50 mg oral tablet)1 tab(s) by mouth every day. potassium chloride (potassium chloride 99 mg oral tablet)1 tab(s) by mouth once a day. Take with food. zinc sulfate (Zinc)140 Milligram by mouth once a day. Follow Up Appointments No qualifying data available. Follow Up Labs/Studies Discharge Labs Discharge Outpatient Labwork - Ordered -- bmp, hyponatremia, follow-up within: 1-2 days, Results Notify to: GEETA CHAVEZ MD, 05/12/24 11:39:00 EDT Discharge Studies Discharge Outpatient Radiology - Ordered -- 2d echo, syncope, follow-up within: 1-2 weeks, Results Notify to: GEETA CHAVEZ MD, 05/12/24 11:38:00 EDT Readmission Risk/Palliative Score No qualifying data available. Time Spent 34 minutes Digitally Signed by JAMILA YI MD FAC on 05/12/2024 01:00 PM [facility] 05-11-2024 History and physical note Date of Service 05/11/2024 00:31:16 History of Present Illness 58-year-old male with a history of hyperlipidemia and hypertension on lisinopril and amlodipine transferred to the intensive care unit for hyponatremia coming from [facility] emergency department. He tells me that he is a daily alcohol user and over the last several months has been drinking more secondary to some life stressors. He has been having about 7 beers or so each night. Over the past several days he has become ataxic and several days ago had a fall with head strike. He did not seek any medical attention at that time. His ataxia has persisted prompting a trip to [facility] emergency department today. There he had lab work which showed hyponatremia with a sodium of 112. He is also hypochloremic with a chloride of 69. He is hypokalemic with a potassium of 2.2. His creatinine is slightly elevated at 1.42. His magnesium is low at 1.7. His electrolytes were replaced in the emergency department and he was transferred here for definitive management of his hyponatremia. He is currently on 75 cc an hour of normal saline. He was transiently started on hypertonic's, however the that was discontinued after ED physician spoke with the radiologic technology program director. Imaging at [facility] included a CT cervical spine, maxillofacial CT, and CT head without contrast. No acute traumatic injuries were noted on the studies. Review of Systems Negative unless otherwise noted above in HPI Physical Exam Vitals and Measurements T: 36.7 C (Oral) HR: 65 (Monitored) RR: 16 BP: 128/85 SpO2: 100% No qualifying data available. General Appearance: Alert and oriented x 4. Generally well appearing. No acute distress HEENT: Normocephalic. Atraumatic. EOMI. Clear conjunctiva, oropharynx clear. Neck: Supple without lymphadenopathy. No stiffness or restricted ROM. Heart: Normal rate. Regular rhythm. No murmurs, rubs, or gallops. Lungs: Clear to auscultation bilaterally. No wheezes, rales, or rhonchi. Abdomen: Soft. Nontender. Nondistended with normal active bowel sounds. Back: No CVA tenderness or obvious deformity. Extremities: Without cyanosis, clubbing, or edema. Neurological: Grossly nonfocal. Alert and oriented. Moves all four extremities. Cranial nerves not formally tested but appear grossly intact. Skin: Warm and dry without any rash. Lab Results 05/10 22:20 WBC: 3.0 L Hgb: 12.1 L Hct: 33.8 L Platelet: 114 L Neutrophil %: 73.1 Protime: 10.7 PT International Ratio: 0.9 Glucose Level: 109 Sodium Level: 117 C Potassium Level: 2.5 C BUN: 14.0 Creatinine Lvl (s): 1.13 Assessment/Plan Clinical impression 1. Hyponatremia 2. Hypomagnesemia 3. Hypokalemia 4. Hypochloremia 5. Ataxia, s/p fall, concern for syncope 6. History of alcohol abuse Plan 1. IVF NS at 25 an hour 2. BMP every 4 hours continue to monitor sodium 3. Replace potassium as needed to maintain potassium level greater than 4 4. Replace magnesium as needed to maintain magnesium level greater than 2 5. CIWA protocol 6. Supplement thiamine and folate Problem List/Past Medical History Ongoing Cyst of face Sleep apnea Procedure/Surgical History Inguinal hernia: 03/07/19 Abdominal hernia Medications Home Medications (12) Active amLODIPine 5 mg oral tablet 5 mg = 1 tab(s), Oral, qDay citalopram 20 mg oral tablet 20 mg = 1 tab(s), Oral, qDay hydrochlorothiazide-lisinopril 25 mg-20 mg oral tablet 1 tab(s), Oral, Daily hydrOXYzine hydrochloride 25 mg oral tablet 25 mg = 1 tab(s), Oral, Daily lysine 1000 mg oral tablet 1,000 mg = 1 tab(s), Oral, Daily Multivitamin 1 tab(s), Oral, Daily naltrexone 50 mg oral tablet 50 mg = 1 tab(s), Oral, Daily potassium chloride 99 mg oral tablet 99 mg = 1 tab(s), Oral, qDay rosuvastatin 40 mg oral tablet 0.5 mg, Oral, qDay Vitamin B12 1,000 mcg, Oral, qDay Vitamin C 500 mg oral tablet 500 mg = 1 tab(s), Oral, qDay Zinc 140 mg, Oral, qDay Allergies NKA Social History Smoking Status - 06/04/2018 Current some day smoker Alcohol - High Risk, 06/04/2018 Use: Current. Type: Beer, Wine. Frequency: Daily. Average drinks per day: 3., 11/15/2019 Home/Environment Domestic Concerns: None. Living situation: Home/Independent., 11/15/2019 Nutrition/Health Appetite Good., 11/15/2019 Substance Abuse - Denies Substance Abuse, 06/04/2018 Use: Never., 03/08/2019 Tobacco - Medium Risk, 11/15/2018 Nicotine Use: CHEWS 1 CAN PER DAY., 11/15/2019 Family History Cancer: Grandparent. Diabetes: Mother, Brother and Grandparent. Health Status Family Member(s) Immunizations tetanus/diphth/pertuss (Tdap) adult/adol: 0.5 mL (06/04/18) Code Status Code Status - Ordered -- 05/10/24 21:03:00 EDT, Full Code, Constant Order Digitally Signed by GERALDINE SAEED DO on 05/11/2024 12:33 AM [facility] 05-11-2024 Note Date of Service 05/11/24 Reason for Consultation Admission From: Home Consult Skin Team re: Pressure Staging - Ordered -- 05/11/24 1:03:33 EDT Skin Team Findings Vitals and Measurements T: 36.7 C (Oral) TMIN: 36.6 C (Oral) TMAX: 36.7 C (Oral) HR: 71 (Monitored) RR: 20 BP: 89/59 SpO2: 98% HT: 180.3 cm WT: 79.3 kg BMI: 24.39 Pressure Area Details ------Pressure Area------ No Pressure injuries noted. ------Incision/Wound------ Eye Bilateral - Skin Abnormality Color: Black, [place] Bilateral - Skin Abnormality Type: Bruise Eye Bilateral - Wound Status: No complications Forehead Left Lower - Incision, Wound Dressing: Open to air Forehead Left Lower - Incision, Wound Surrounding Tissue: Normal Forehead Left Lower - Skin Abnormality Color: Other: scab Forehead Left Lower - Skin Abnormality Pattern: Raised Forehead Left Lower - Skin Abnormality Type: Abrasion Forehead Left Lower - Wound Exudate Amount: None Forehead Left Lower - Wound Status: No complications Forehead Left Upper - Incision, Wound Dressing/Activity: Open to air Forehead Left Upper - Incision, Wound Surrounding Tissue: Normal Forehead Left Upper - Skin Abnormality Color: Other: scab Forehead Left Upper - Skin Abnormality Pattern: Flat Forehead Left Upper - Skin Abnormality Type: Abrasion Forehead Left Upper - Wound Exudate Amount: None Forehead Left Upper - Wound Status: No complications Forehead Right - Incision, Wound Dressing/Activity: Open to air Forehead Right - Incision, Wound Surrounding Tissue: Normal Forehead Right - Skin Abnormality Color: Other: scab Forehead Right - Skin Abnormality Pattern: Flat Forehead Right - Skin Abnormality Type: Abrasion Forehead Right - Wound Exudate Amount: None Forehead Right - Wound Status: No complications Nose Medial - Incision, Wound Dressing/Activity: Open to air Nose Medial - Skin Abnormality Pattern: Flat Nose Medial - Skin Abnormality Type: Abrasion Nose Medial - Wound Status: No complications Assessments and Recommendations ------Assessments------ Current Skin/Wound Interventions: Hospital bed ------Recommendations------ Recommended Skin/Wound Interventions: No recommendations at this time Education Individuals Taught: Patient Learning Readiness: Willing to learn Barriers to Learning: None evident Teaching Method: Explanation Problem List/Past Medical History Ongoing Cyst of face Sleep apnea Digitally Signed by ARELY Lunsford on 05/11/2024 11:26 AM [facility] 05-10-2024 History and physical note Date of Service 05/11/2024 00:31:16 History of Present Illness 58-year-old male with a history of hyperlipidemia and hypertension on lisinopril and amlodipine transferred to the intensive care unit for hyponatremia coming from [facility] emergency department. He tells me that he is a daily alcohol user and over the last several months has been drinking more secondary to some life stressors. He has been having about 7 beers or so each night. Over the past several days he has become ataxic and several days ago had a fall with head strike. He did not seek any medical attention at that time. His ataxia has persisted prompting a trip to [facility] emergency department today. There he had lab work which showed hyponatremia with a sodium of 112. He is also hypochloremic with a chloride of 69. He is hypokalemic with a potassium of 2.2. His creatinine is slightly elevated at 1.42. His magnesium is low at 1.7. His electrolytes were replaced in the emergency department and he was transferred here for definitive management of his hyponatremia. He is currently on 75 cc an hour of normal saline. He was transiently started on hypertonic's, however the that was discontinued after ED physician spoke with the radiologic technology program director. Imaging at [facility] included a CT cervical spine, maxillofacial CT, and CT head without contrast. No acute traumatic injuries were noted on the studies. Review of Systems Negative unless otherwise noted above in HPI Physical Exam Vitals and Measurements T: 36.7 C (Oral) HR: 65 (Monitored) RR: 16 BP: 128/85 SpO2: 100% No qualifying data available. General Appearance: Alert and oriented x 4. Generally well appearing. No acute distress HEENT: Normocephalic. Atraumatic. EOMI. Clear conjunctiva, oropharynx clear. Neck: Supple without lymphadenopathy. No stiffness or restricted ROM. Heart: Normal rate. Regular rhythm. No murmurs, rubs, or gallops. Lungs: Clear to auscultation bilaterally. No wheezes, rales, or rhonchi. Abdomen: Soft. Nontender. Nondistended with normal active bowel sounds. Back: No CVA tenderness or obvious deformity. Extremities: Without cyanosis, clubbing, or edema. Neurological: Grossly nonfocal. Alert and oriented. Moves all four extremities. Cranial nerves not formally tested but appear grossly intact. Skin: Warm and dry without any rash. Lab Results 05/10 22:20 WBC: 3.0 L Hgb: 12.1 L Hct: 33.8 L Platelet: 114 L Neutrophil %: 73.1 Protime: 10.7 PT International Ratio: 0.9 Glucose Level: 109 Sodium Level: 117 C Potassium Level: 2.5 C BUN: 14.0 Creatinine Lvl (s): 1.13 Assessment/Plan Clinical impression 1. Hyponatremia 2. Hypomagnesemia 3. Hypokalemia 4. Hypochloremia 5. Ataxia, s/p fall, concern for syncope 6. History of alcohol abuse Plan 1. IVF NS at 25 an hour 2. BMP every 4 hours continue to monitor sodium 3. Replace potassium as needed to maintain potassium level greater than 4 4. Replace magnesium as needed to maintain magnesium level greater than 2 5. CIWA protocol 6. Supplement thiamine and folate Problem List/Past Medical History Ongoing Cyst of face Sleep apnea Procedure/Surgical History Inguinal hernia: 03/07/19 Abdominal hernia Medications Home Medications (12) Active amLODIPine 5 mg oral tablet 5 mg = 1 tab(s), Oral, qDay citalopram 20 mg oral tablet 20 mg = 1 tab(s), Oral, qDay hydrochlorothiazide-lisinopril 25 mg-20 mg oral tablet 1 tab(s), Oral, Daily hydrOXYzine hydrochloride 25 mg oral tablet 25 mg = 1 tab(s), Oral, Daily lysine 1000 mg oral tablet 1,000 mg = 1 tab(s), Oral, Daily Multivitamin 1 tab(s), Oral, Daily naltrexone 50 mg oral tablet 50 mg = 1 tab(s), Oral, Daily potassium chloride 99 mg oral tablet 99 mg = 1 tab(s), Oral, qDay rosuvastatin 40 mg oral tablet 0.5 mg, Oral, qDay Vitamin B12 1,000 mcg, Oral, qDay Vitamin C 500 mg oral tablet 500 mg = 1 tab(s), Oral, qDay Zinc 140 mg, Oral, qDay Allergies NKA Social History Smoking Status - 06/04/2018 Current some day smoker Alcohol - High Risk, 06/04/2018 Use: Current. Type: Beer, Wine. Frequency: Daily. Average drinks per day: 3., 11/15/2019 Home/Environment Domestic Concerns: None. Living situation: Home/Independent., 11/15/2019 Nutrition/Health Appetite Good., 11/15/2019 Substance Abuse - Denies Substance Abuse, 06/04/2018 Use: Never., 03/08/2019 Tobacco - Medium Risk, 11/15/2018 Nicotine Use: CHEWS 1 CAN PER DAY., 11/15/2019 Family History Cancer: Grandparent. Diabetes: Mother, Brother and Grandparent. Health Status Family Member(s) Immunizations tetanus/diphth/pertuss (Tdap) adult/adol: 0.5 mL (06/04/18) Code Status Code Status - Ordered -- 05/10/24 21:03:00 EDT, Full Code, Constant Order Digitally Signed by GERALDINE SAEED DO on 05/11/2024 12:33 AM [facility] 05-10-2024 Note ORIGINAL EXAMINATION: CT OF THE CERVICAL SPINE WITHOUT CONTRAST 05/10/2024 4:26 pm TECHNIQUE: CT of the cervical spine was performed without the administration of intravenous contrast. Multiplanar reformatted images are provided for review. Automated exposure control, iterative reconstruction, and/or weight based adjustment of the mA/kV was utilized to reduce the radiation dose to as low as reasonably achievable. COMPARISON: None. HISTORY: ORDERING SYSTEM PROVIDED HISTORY: Reason for Exam: pain FINDINGS: BONES/ALIGNMENT: There is no acute fracture or traumatic malalignment. DEGENERATIVE CHANGES: Multilevel degenerative changes of the spine. No high-grade spinal canal stenosis. Variable bilateral neural foraminal narrowing. Bulky anterior osteophytes which displaced the aerodigestive tract anteriorly. SOFT TISSUES: There is no prevertebral soft tissue swelling. IMPRESSION: No acute fracture of the cervical spine. Interpreted by: Samir Scott Preliminary Report By: Samir Scott Electronically signed By Samir Scott Dictated Date: 05/10/2024 4:29:51 PM Prelim Date: 05/10/2024 4:33:52 PM Sign Date: 05/10/2024 4:33:52 PM Ordering Provider: EBONY RAE [facility] 05-10-2024 Note ORIGINAL EXAMINATION: CT OF THE FACE WITHOUT CONTRAST05/10/2024 4:25 pm TECHNIQUE: CT of the face was performed without the administration of intravenous contrast. Multiplanar reformatted images are provided for review. Automated exposure control, iterative reconstruction, and/or weight based adjustment of the mA/kV was utilized to reduce the radiation dose to as low as reasonably achievable. COMPARISON: None. HISTORY: ORDERING SYSTEM PROVIDED HISTORY: Reason for Exam: INJURY FINDINGS: BONES: The orbital chávez, zygomatic arches, nasal bones, anterior nasal spines of the maxilla, pterygoid plates, and mandible are intact. The temporomandibular joints are maintained. There are degenerative changes seen in the cervical spine. There are scattered periapical lucencies of both maxillary mandibular teeth. Carious dentition is also appreciated. ORBITS: No acute orbital abnormality. SINUSES: Mild mucosal thickening is seen in the left maxillary sinus. Otherwise the paranasal sinuses and imaged mastoid air cells are essentially clear. IMPRESSION: No acute fracture. I have personally reviewed the images of this examination and agree with the resident's findings and interpretation. Interpreted by: Samir Scott Preliminary Report By: Danial Carbajal Electronically signed By Samir Scott Dictated Date: 05/10/2024 4:27:06 PM Prelim Date: 05/10/2024 4:32:38 PM Sign Date: 05/10/2024 4:36:06 PM Ordering Provider: EBONY RAE [facility] 05-10-2024 Note ORIGINAL EXAMINATION: CT OF THE HEAD WITHOUT CONTRAST 05/10/2024 4:21 pm TECHNIQUE: CT of the head was performed without the administration of intravenous contrast. Automated exposure control, iterative reconstruction, and/or weight based adjustment of the mA/kV was utilized to reduce the radiation dose to as low as reasonably achievable. COMPARISON: None. HISTORY: ORDERING SYSTEM PROVIDED HISTORY: Reason for Exam: syncopal episode FINDINGS: BRAIN/VENTRICLES: There is no acute intracranial hemorrhage, mass effect, or midline shift. No abnormal extra-axial fluid collection. The collins-white differentiation is maintained without evidence of an acute infarct. There is no evidence of hydrocephalus. There are scattered areas of decreased attenuation white matter, which statistically reflect mild chronic microvascular white matter ischemic disease. Atherosclerotic calcifications of the bilateral internal carotid siphons. ORBITS: Visualized portion of the orbits demonstrate no acute abnormality. SINUSES: The visualized paranasal sinuses and mastoid air cells demonstrate no acute abnormality SOFT TISSUES/SKULL: There is S shaped curvature of the nasal septum. There is no acute abnormality of the visualized skull or soft tissues. IMPRESSION: No acute intracranial abnormality I have personally reviewed the images of this examination and agree with the resident's findings and interpretation. Interpreted by: Malcom Reardon MD Preliminary Report By: Ronald Newton Electronically signed By Malcom Reardon MD Dictated Date: 05/10/2024 4:24:18 PM Prelim Date: 05/10/2024 4:43:34 PM Sign Date: 05/10/2024 4:43:34 PM Ordering Provider: EBONY RAE [facility] 05-10-2024 Note Sinus rhythm Prolonged OH interval Left atrial enlargement Borderline ST elevation, anterior leads Baseline wander in lead(s) V2 Electronic Signature: MD GILLES, HILARY HARRINGTON 05/10/2024 15:36:[address] [facility] 05-10-2024 Evaluation + Plan note Diagnostic Tests PendingComplete Blood Count 05/10/24.Auto Differential 05/10/24.Neutro Absolute 05/10/24.[place] Distribution Width 05/10/[address] [facility] 01-04-2024 Evaluation + Plan note Extrac can from: Title:History and Physical Author:GERALDINE SAEED Date:05/10/24 Clinical impression 1. Hyponatremia 2. Hypomagnesemia 3. Hypokalemia 4. Hypochloremia 5. Ataxia, s/p fall, concern for syncope 6. History of alcohol abuse Plan 1. IVF NS at 25 an hour 2. BMP every 4 hours continue to monitor sodium 3. Replace potassium as needed to maintain potassium level greater than 4 4. Replace magnesium as needed to maintain magnesium level greater than 2 5. CIWA protocol 6. Supplement thiamine and folate Addendum by GERTRUDIS PURI MD on May 11, 2024 13:48:02 EDT I was present for, and personally supervised, the [place] components of the patient's evaluation and management by the Resident house staff today. I have examined the patient and reviewed all diagnostic data. I reviewed the note of the resident. It documents the interval history obtained, examination performed, and diagnostic testing results compiled by him/her. Briefly this is a 70-year-old gentleman who presented in the setting of syncope hyponatremia. Has history of alcoholism. On presentation started with IV resuscitation significant improvement of his hyponatremia. There was no EKG changes. Being monitored. General: Alert oriented 3 not in any apparent distress. HEENT: PERRLA EOMI. some abrasions noted on his face Lungs decreased air entry bilaterally no crackles or wheezing. Cardiovascular S1-S2. Abdomen soft nondistended no tenderness. Lower extremity no edema Clinical impression 1. Hyponatremia secondary to hypovolemia 2. Hypomagnesemia 3. Hypokalemia 4. Hypochloremia 5. Ataxia, s/p fall, concern for syncope 6. History of alcohol abuse Plan 1. Continue fluid resuscitation 2. Check urine electrolytes osmolality and serum osmolality 3. Replace potassium as needed to maintain potassium level greater than 4 4. Replace magnesium as needed to maintain magnesium level greater than 2 5. [place] protocol 6. Supplement thiamine and folate 7. Echocardiogram to evaluate for possible cardiac causes for his syncope Diagnostic Tests Pending * Basic Metabolic Panel 05/12/24 [facility] 05-05-2021 Evaluation note* Diagnosis Onset Date Resolution Status History of loop recorder January 07, 2021 ch ronic Syncope and collapse chronic History of loop recorder January 07, 2021 ch ronic Syncope and collapse chronic [facility] Work Phone: Evaluation noteNo assessment information available [facility] Work Phone: Hospital course Narrative No data available for this section [facility] Hospital Discharge instructions No data available for this section [facility] Progress note No data available for this section [facility] Reason for referral (narrative)No reason for [facility] Summary Purpose Family History No Family History Records Found Relationship Condition Age at Onset Recorded Date/T alla mother Asthma Unknown Advance Directives No Advanced Directives Records Found Advance Directive Response Recorded Date/ Time Advance Directives No January 07, 2021 7:04am Living Will No October 06 10:15am Power of Department Clerk No October 06, 2021 10:15am Chief Complaint and Reason for Visit Chief Complaint 3 mos remote ILR f/u remote ILR ALERT Reason for Visit History of loop brayan rder Syncope and collapse History of loop recorder Syncope and collapse Additional Source Comments (unrecognized sect ion and content) No Status Records FoundNo Status Records FoundNo Status Records FoundNo Status Records FoundNo Status Records FoundNo Status Records Found INFORMATION SOURCE (unrecogn ized section and content) DATE CREATED AUTHOR 07/18/2019 [facility] DATE CREATED AUTHOR AUTHOR'S ORGANIZ ATION 07/25/2019 [facility] DATE CREATED AUTHOR AUTHOR'S ORGANIZ ATION 05/12/2024 [facility] ([place] DATE CREATED AUTHOR AUTHOR'S ORGANIZ ATION 05/16/2024 [facility] DATE CREATED AUTHOR AUTHOR'S ORGANIZ ATION 05/19/2024 [facility] DATE CREATED AUTHOR AUTHOR'S ORGANIZ ATION 02/27/2025 [facility] Goals (unrecognized section and content) Goals may be documented in a n alternate sectionGoals may be documented in an alternate section No data available for this section No data available for this section No data available for this sectionGoals may be documented in an alternate section Care Teams (unrecognized sec tion and content) Team Status: Active Member Role Status Dates No Primary Care Physician Family Provider Active Dr. Geeta Chavez MD Primary Care Provider Active Team Status: Inactive Member Role Status Dates Dr. Geeta Chavez MD Primary Care Provider, [facility] Provider Active FOR RECORDS PERTAINING TO PATIENTS WHO ARE OR HAVE BEEN ENROLLED IN A CHEMICAL DEPENDENCY/SUBSTANCEABUSE PROGRAM, SOME INFORMATION MAY BE OMITTED. This clinical summary was aggregated from multiple sources. Caution should be exercised in using it in the provision of clinical care. This summary normalizes information from multiple sources, and as a consequence, information in this document may materially change the coding, format and clinical context of patient data. In addition, data may be omitted in some cases. CLINICAL DECISIONS SHOULD BE BASED ON THE PRIMARY CLINICAL RECORDS. [employer] provides no warranty or guarantee of the accuracy or completeness of information in this document.
[2025-08-24 15:23] LABS: AST(SGOT) 203 U/L (<=37); Alanine Aminotransfer ALT/SGPT 215 U/L (<=46); Albumin, Serum 4.8 g/dL (3.5-5.0); Alkaline Phosphatase 99 U/L (40-129); Anion Gap 18 (5-15); BUN 11 mg/dL (4-19); BUN/Creat Ratio 12.8 RATIO (10-20); Calcium,Total 9.5 mg/dL (7.6-11.0); Carbon Dioxide 25.8 mmol/L (21.0-32.0); Chloride 89 mmol/L (98-108); Estimated Creatinine Clearance 102.09 ml/min (50-250); Globulin 2.9 g/dL (2.2-4.2); Glucose 131 mg/dL (70-99); Potassium 3.7 mmol/L (3.3-5.1)
[2025-08-24 15:26] LABS: Alcohol, Blood (Medical)-Serum 302.0 mg/dL (<=10.0)
--- NOTE | 2025-08-24 15:26 | ED.RN ---
ETOH 302. DR MELLO
[2025-08-24 15:31] LABS: Barbiturate Urine NEGATIVE (< 200 ng/mL); Benzodiazepine Urine NEGATIVE (< 200 ng/mL); PCP Urine NEGATIVE (< 25 ng/mL); THC Urine NEGATIVE (< 50 ng/mL)
[2025-08-24 15:41] VITALS: BP 124/82; PULSE 72; RESP 14; O2SAT 96
--- NOTE | 2025-08-24 15:42 | PCM.HP.STD ---
HPI - General General Date of Admission: 08/24/25 Date of Service: 08/24/25 Chief Complaint: requesting ETOH detox HPI Narrative JAVIER STRICKLAND, is a 59-year-old male with a history of alcohol abuse, COPD, chewed tobacco use who presented to [facility] ED 08/24/2025 requesting detox. In the ED blood pressure 153/96, respiratory rate 16 with 96% on room air, heart rate 81 and temp 97.7. White count hemoglobin within normal limits, platelet count 100, BUN 11 creatinine 0.84, glucose 131 and AST 203 with ALT 215, UDS negative and alcohol level 302. Hospitalist contacted for admission. Patient drinks around 15-20 beers a day with last drink several hours prior to arrival. Has gone through detox here with most recent detox 2 or 3 years ago. Reportedly coming in because he got drunk and passed out on Tuesday and decided he needed to go through detox to stop drinking. Fairly sleepy after receiving Ativan but denies any new or acute complaints PFSH Medical History Alcohol dependence Alcohol use Alcohol withdrawal Anxiety Asthma-COPD overlap syndrome BMI 27.0-27.9,adult Cardiology follow-up encounter Chewing tobacco nicotine dependence Chronic alcohol dependence, continuous COPD (chronic obstructive pulmonary disease) CPAP (continuous positive airway pressure) dependence Diarrhea Electrolyte abnormality Elevated LFTs Essential (primary) hypertension Head ache Heartburn History of ulceration History of umbilical hernia HLD (hyperlipidemia) Hypertension Hypoglycemia Hypokalemia Hyponatremia Injury of head and neck Left knee pain Loss of consciousness Marijuana use NUHA (obstructive sleep apnea) Osteoarthritis of left knee Polyneuropathy Recurrent syncope Restless legs Scalp laceration Seizure Seizures Smoker Syncope and collapse Thrombocytopenia Tobacco abuse Tobacco use Home Medications ?Medication ?Instructions ?Recorded ?Last Taken ?Type cetirizine 10 mg tablet 10 mg PO DAILY allergies 07/09/20 11/19/20 History potassium chloride 20 mEq oral 20 meq PO DAILY supplement 11/05/20 11/19/20 History packet sodium bicarbonate 325 mg tablet 325 mg PO BID stomach 11/05/20 11/19/20 History multivit,Ca,min-iron 8 mg-folic 1 tab PO DAILY supplement 11/20/20 11/19/20 History acid 200 mcg-lycopene 600 mcg tablet (Centrum Men) lisinopril 20 tab PO .evening 06/27/23 Unknown History mg-hydrochlorothiazide 25 mg tablet rosuvastatin 5 mg tablet 5 mg PO DAILY 10/23/23 Unknown History Allergy/AdvReac Type Severity Reaction Status Date / Time Environmental Allergies: Allergy Mild runny nose Verified 08/24/25 13:33 Uncoded Family History Mother Asthma Surgical History History of hernia repair History of loop recorder (01/07/21) Hx of colonoscopy Hx of left inguinal hernia repair Hx of right inguinal hernia repair Social History Smoking Status: Current every day smoker tobacco type: smokeless tobacco Smokeless tobacco user: chewing tobacco and snuff alcohol intake: current alcohol intake frequency: 3 or more drinks per day Alcohol type: beer and wine ROS ROS Narrative General: Denies fever/chills HENT: Denies headache, denies stuffy nose, denies sore throat EYES: Denies changes in vision Resp: Denies cough, denies shortness of breath Cardiac: Denies chest pain GI: Denies abdominal pain, denies changes in bowel, denies nausea/vomiting : Denies changes in urination Extremity: Denies swelling MSK: Denies weakness Neuro: Denies any numbness/tingling Heme: Denies any bleeding or bruising Skin: Denies rashes Psychiatric: No complaints voiced Patient's Goals Of Care . What would you like to achieve or improve as a result of your hospital stay?: To quit drinking Vital Signs Vital Signs Vital Signs: 08/24/25 13:31 08/24/25 15:41 Temperature 97.7 F L Temperature Source Oral Pulse Rate 81 72 Respiratory Rate 16 14 Blood Pressure 153/96 H 124/82 H Blood Pressure Mean 115 96 Pulse Ox 96 96 Oxygen Delivery Method Room Air Room Air Weight Weight: 77.655 kg Body Mass Index (BMI) 23.8 Physical Exam Narrative General: Resting comfortably but wakes up to multiple prompts and then answers questions appropriately HEENT: Atraumatic, normocephalic Eyes: Anicteric, normal conjunctiva, extraocular movements grossly intact Neck: Supple Respiratory: Clear to auscultation bilaterally, normal respiratory effort Cardiovascular: Regular rate and rhythm GI: Soft, nontender, nondistended Extremities: No edema Musculoskeletal: Moving all extremities Neuro: No overt focal neurological deficits Skin: No rashes appreciated Psych: Cooperative Results Lab / Micro Data 08/24/25 14:45 08/24/25 14:45 Labs: Laboratory Results - last 24 hr 08/24/25 14:44: Urine Opiates Screen NEGATIVE, U Buprenorphine Qual NEGATIVE, Ur Oxycodone Screen NEGATIVE, Urine Methadone Screen NEGATIVE, Urine Fentanyl Screen NEGATIVE, Ur Barbiturates Screen NEGATIVE, Ur Phencyclidine Scrn NEGATIVE, Ur Amphetamines Screen NEGATIVE, U Benzodiazepines Scrn NEGATIVE, Urine Cocaine Screen NEGATIVE, U Cannabinoids Screen NEGATIVE 08/24/25 14:45: WBC 4.4, RBC 4.57 L, Hgb 14.3, Hct 40.5, MCV 88.6, MCH 31.3, MCHC 35.3, RDW Std Deviation 37.2, RDW Coeff of Sheryl 11.8, Plt Count 100 L, MPV 10.4, Immature Gran % (Auto) 0.000, Neut % (Auto) 80.3 H, Lymph % (Auto) 12.2 L, Swisher % (Auto) 6.1, Eos % (Auto) 0.5, Baso % (Auto) 0.9, Absolute Neuts (auto) 3.6, Absolute Lymphs (auto) 0.54 L, Nucleated RBC % 0, Sodium 133, Potassium 3.7, Chloride 89 L, Carbon Dioxide 25.8, Anion Gap 18 H, BUN 11, Creatinine 0.84, Estim Creat Clear Calc 102.09, Est GFR (MDRD) Non-Af 101, BUN/Creatinine Ratio 12.8, Glucose 131 H, Calcium 9.5, Total Bilirubin 0.70, AST 203 H, ALT 215 H, Alkaline Phosphatase 99, Total Protein 7.6, Albumin 4.8, Globulin 2.9, Albumin/Globulin Ratio 1.7, Ethyl Alcohol 302.0 H* Assessment & Plan Assessment/Plan (1) History of alcohol abuse: (2) Transaminitis: PLAN: Plan #Alcohol use disorder - We will begin CIWA every 4 for 24 hours, then every 6 for 24 hours, then every 12 until discharge -Will begin phenobarbital taper -Gabapentin 300 mg every 8 as needed -Will start Bentyl and hydroxyzine as needed as well as loperamide as needed -Trazodone 100 mg p.o. nightly as needed sleep -Begin thiamine and folic acid supplementation -Zofran as needed for nausea -Case management consult to assist with discharge planning -EtOH 302 -UDS negative # Elevated liver function tests -AST 203 and ALT 215 -Strongly advised alcohol cessation -Repeat in the a.m. -Has previously had elevations in the 3 and 400s, suspected will downtrend with avoidance of alcohol # History of COPD -Does not appear to be on any home inhalers but does have previous PFTs that show partially reversible moderately severe large airway obstructive ventilatory defect with associated air trapping -Albuterol as needed #Tobacco use -Reports using chewing tobacco -Advise cessation - Would like nicotine patch #Allergies - Continue cetirizine #DVT ppx: Lovenox Q Cherelle Heredia MD Charges/Coding Visit Charges Inpatient E&M: 28166 Init Hosp L2
[2025-08-24 15:43] VITALS: BP 124/82; PULSE 70; RESP 18; TEMP 36.7; O2SAT 97
--- OUTSIDE RECORDS SUMMARY | 2025-08-24 16:38 | XMS RPT_ITS | CCD ---
Author Organization [facility] Care Team Providers Care Health Policy Nurse Name Role Phone Dr. Geeta Chavez Primary Care Provider [phone] Dr. Macario Mendoza Attending Provider Dr. Macario Mendoza Referring Provider [phone] Geeta Chavez Referring Provider Kortney Reyes Attending Provider Unavailable DOMINIC MORTON DO Primary Care Physician [phone] GREGORY RIOS MD Consulting Unavailable PRAVEEN HANDLEY, [facility] Primary Care Unavailable GILLES HARRINGTON, DR RICHARD Attending Unavailab le PRAVEEN DO, [facility] Primary Care Unavailable KASSIDY HARRINGTON FACP, JAMILA Moya Attending Unavail able PRAVEEN HANDLEY DOMINIC Primary Care Unavailable KASSIDY HARRINGTON FACP, JAMILA Moya Consulting Unavail able KASSIDY HARRINGTON FACP, JAMILA Moya Attending Unavail yoan IROS MD, GREGORY Admitting Unavailable DR GEETA CHAVEZ [...] Uncoded] Allergy to substance 4 runny nose [facility] Medications Current Medications Medication Drug Class(es) [...] qDay, # 30 tab(s), 0 Refill(s), Pharmacy: [facility]/pharmacy #[id number], 180.3, cm, 05/10/24 22:59:00 EDT, Height, [...] Oral, Daily Start Date: 03/08/19 Status: Ordered Mv,Ca,Yhg-Jhzv-Ll-Lycope ne (Centrum Men) 8 mg iron- 200 mcg-600 mcg tablet (3 sources) Start: 11-20-2020 take 8 tablets by mouth once daily Mv,Ca,Xwg-Apbk-Ws-Lycop sim (Centrum Men) 8 mg iron- 200 [...] Start Date: 03/08/19 Status: Ordered lactobacillus acidophilus [id number] unt oral capsule (3 sources) Start: 10-06-2021 End: 06-27-2023 take 10 capsules by mouth once daily Lactobacillus Acidophilus (Probiotic) 10 billion cell Capsule Discontinued 64127 NMA PO DAILY October 06, 2021 1:00am [...] Facility .GFRon 05-14-2024 GFR 67 ml/min/1.73sqm Normal [facility] Comment on above: Result Comment: GFR Population [...] By: #### Jemal CLARKE, BMP #### [address] [address] GFR Non- 55 ml/min/1.73sqm Normal [facility] Comment on above: Result Comment: GFR Population [...] By: #### Jemal CLARKE, BMP #### [address] [address] BMPon 05-14-2024 BUN/Creatinine Ratio 8 ratio Normal 7-27 [facility] Comment on above: Performed By: #### G , BMP #### [address] [address] Calcium [Mass/Vol] 10.0 mg/dL Normal 8.4-10.2 [facility] Comment on above: Performed By: #### G , BMP #### [address] [address] Chloride [Moles/Vol] 91 mmol/L Low 98-107 [facility] Comment on above: Performed By: #### G , BMP #### [address] [address] CO2 [Moles/Vol] 32 mmol/L High 22-[address] [facility] Comment on above: Performed By: #### G , BMP #### [address] [address] Creatinine [Mass/Vol] 1.33 mg/dL High 0.70-1.30 [facility] Comment on above: Result Comment: Test ing performed on Siemens Dimension EXL analyzer using a modified kinetic Tracey technique. Performed By: #### Jemal CLARKE, BMP #### [address] [address] Electrolyte Balance 7.0 mEq/L Normal 4.0-15.0 [facility] Comment on above: Performed By: #### Jemal CLARKE, BMP #### [address] [address] Glucose [Mass/Vol] 151 mg/dL High 70-105 [facility] Comment on above: Performed By: #### Jemal CLARKE, BMP #### [address] [address] Potassium [Moles/Vol] 3.9 mmol/L Normal 3.5-5.1 [facility] Comment on above: Performed By: #### Jemal CLARKE, BMP #### [address] [address] Sodium [Moles/Vol] 130 mmol/L Low 136-145 [facility] Comment on above: Performed By: #### Jemal CLARKE, BMP #### [address] [address] Urea nitrogen [Mass/Vol] 11 mg/dL Normal 7-[address] [facility] Comment on above: Performed By: #### Jemal CLARKE, BMP #### [address] [address] LABORATORYOrdered By: SYSTEM SYSTEM on 05-14-2024 Calcium [...] ADM SS .GFRon 05-12-2024 GFR Non- >60 [facility] MAIN Comment on above: Result Comment: [...] Performed By: #### B MP, GFR #### [place] [address] GFR >60 Normal [facility] Comment on above: Result Comment: GFR [...] Performed By: #### B MP, GFR #### [address] [address] BMPon 05-12-2024 BUN/Creatinine Ratio 12.2 ratio Normal 10.0-22.0 [facility] Comment on above: Performed By: #### B MP, GFR #### [address] [address] Calcium [Mass/Vol] 9.8 mg/dL Normal 8.7-10.4 [facility] Comment on above: Performed By: #### B MP, GFR #### [address] [address] Chloride [Moles/Vol] 86 mmol/L Low 98-110 [facility] Comment on above: Performed By: #### B MP, GFR #### [address] [address] CO2 [Moles/Vol] 37 mmol/L High 22-32 [facility] Comment on above: Performed By: #### B MP, GFR #### [address] [address] Creatinine [Mass/Vol] 1.23 mg/dL Normal 0.60-1.40 [facility] Comment on above: Result Comment: Test ing performed on [employer] analyzer using enzymatic creatinine methodology. Performed By: #### B MP, GFR #### [address] [address] Electrolyte Balance 4.0 mEq/L Normal 4.0-15.0 [facility] MAIN Comment on above: Performed By: #### B MP, GFR #### [address] [address] Glucose [Mass/Vol] 97 mg/dL Normal 70-110 [facility] Comment on above: Performed By: #### B MP, GFR #### [address] [address] Potassium [Moles/Vol] 3.0 mmol/L Low 3.5-5.0 [facility] Comment on above: Performed By: #### B MP, GFR #### [facility] [address] [place] [address] Sodium [Moles/Vol] 127 mmol/L Low 136-145 [facility] Comment on above: Performed By: #### B MP, GFR #### [facility] [address] [place] [address] Urea nitrogen [Mass/Vol] 15.0 mg/dL Normal 8.0-22.0 [facility] Comment on above: Performed By: #### B MP, GFR #### [facility] [address] [place] [address] LABORATORYOrdered By: SYSTEM SYSTEM on 05-12-2024 Calcium [Mass/Vol] 9.8 mg/dL Normal 8.7 - 10. 4 mg/dL ADM SS Chloride [Moles/Vol] 86 mmol/L Low 98 - 11 0 mEq/L AH ADM SS CO2 [Moles/Vol] 37 mmol/L High 22 - 32 mEq/L AH ADM SS Creatinine [Mass/Vol] 1.23 mg/dL Normal 0.60 - 1.40 mg/dL ADM SS Comment on above: Interpretive Data: T esting performed on [employer] analyzer using enzymatic creatinine methodology. Electrolyte Balance [...] Basophil, Absolute 0.0 10 3/mcL Normal 0.0-0.2 [facility] Comment on above: Performed By: #### M DW, CBC, ADIFF, ANEU #### [address] [address] Basophils/100 WBC (Bld) 0.2 % Normal 0.0-2.[address] [facility] Comment on above: Performed By: #### M DW, CBC, ADIFF, ANEU #### [address] [address] Eosinophil, Absolute 0.0 10 3/mcL Normal 0.0-0.4 [facility] Comment on above: Performed By: #### M DW, CBC, ADIFF, ANEU #### [address] [address] Eosinophils/100 WBC (Bld) 0.1 % Normal 0.0-7.[address] [facility] Comment on above: Performed By: #### M DW, CBC, ADIFF, ANEU #### [address] [address] Lymphocyte, Absolute 0.4 10 3/mcL Low 0.8-3.9 [facility] Comment on above: Performed By: #### M DW, CBC, ADIFF, ANEU #### [address] [address] Lymphocytes/100 WBC (Bld) 14.4 % Normal 10.0-50.[address] [facility] Comment on above: Performed By: #### M DW, CBC, ADIFF, ANEU #### [address] [address] Monocyte, Absolute 0.4 10 3/mcL Normal 0.2-1.0 [facility] Comment on above: Performed By: #### M DW, CBC, ADIFF, ANEU #### [address] [address] Monocytes/100 WBC (Bld) 12.3 % Normal 1.7-13.[address] [facility] Comment on above: Performed By: #### M DW, CBC, ADIFF, ANEU #### [address] [address] Neutrophils/100 WBC (Bld) 73.0 % Normal 37.0-80.[address] [facility] Comment on above: Performed By: #### M DW, CBC, ADIFF, ANEU #### [address] [address] Basophil, Absolute 0.0 10 3/mcL Normal 0.0-0.3 [facility] Comment on above: Performed By: #### B 12, OSMOS #### [facility] [address] [place] [address] Basophils/100 WBC (Bld) 0.4 % Normal 0.0-2.5 [facility] Comment on above: Performed By: #### B 12, OSMOS #### [address] [address] Eosinophil, Absolute 0.0 10 3/mcL Normal 0.0-0.7 [facility] MA[facility] Comment on above: Performed By: #### B 12, OSMOS #### [address] [address] Eosinophils/100 WBC (Bld) 0.1 % Normal 0.0-6.0 [facility] Comment on above: Performed By: #### B 12, OSMOS #### [address] [address] Lymphocyte, Absolute 0.5 10 3/mcL Low 0.9-4.3 [facility] Comment on above: Performed By: #### B 12, TREVOR #### [address] [address] Lymphocytes/100 WBC (Bld) 14.9 % Low 20.0-40.0 [facility] Comment on above: Performed By: #### B 12, TREVOR #### [address] [address] Monocyte, Absolute 0.4 10 3/mcL Normal 0.1-1.4 [facility] Comment on above: Performed By: #### B 12, TREVOR #### [address] [address] Monocytes/100 WBC (Bld) 11.0 % Normal 2.0-13.0 [facility] Comment on above: Performed By: #### B 12, OSMOS #### [address] [address] Neutrophils/100 WBC (Bld) 73.6 % Normal 50.0-75.0 [facility] Comment on above: Performed By: #### B 12, TREVOR #### [address] [address] .GFRon 05-11-2024 GFR 60 ml/min/1.73sqm Normal [facility] MA[facility] Comment on above: Result Comment: GFR [...] Performed By: #### B MP, GFR #### [address] [address] GFR Non- 50 ml/min/1.73sqm [facility] MAIN Comment on above: Result Comment: [...] Performed By: #### B MP, GFR #### [address] [address] GFR 56 ml/min/1.73sqm [facility] MAIN Comment on above: Result Comment: [...] Performed By: #### B 12, OSMOS #### [address] [address] GFR Non- 46 ml/min/1.73sqm [facility] MAIN Comment on above: Result Comment: [...] Performed By: #### B 12, TODOS #### [address] [address] GFR 52 ml/min/1.73sqm [facility] MAIN Comment on above: Result Comment: [...] Performed By: #### G FR, BMP #### [address] [address] GFR Non- 43 ml/min/1.73sqm [facility] MAIN Comment on above: Result Comment: [...] Performed By: #### G FR, BMP #### [address] [address] GFR Non- 54 ml/min/1.73sqm [facility] MAIN Comment on above: Result Comment: [...] Performed By: #### G FR, BMP #### [address] [address] GFR >60 [facility] MAIN Comment on above: Result Comment: [...] Performed By: #### G FR, BMP #### [address] [address] GFR 63 ml/min/1.73sqm [facility] Comment on above: Result Comment: GFR [...] #### B MP, MG, GFR #### [address] [address] GFR Non- 52 ml/min/1.73sqm [facility] Comment on above: Result Comment: GFR [...] By: #### B MP, MG, GFR #### [place] [address] [place], [place] [address] GFR >60 Normal [facility] Comment on above: Result Comment: GFR [...] Performed By: #### B 12, OSMOS #### [address] [address] GFR Non- 58 ml/min/1.73sqm Normal [facility] Comment on above: Result Comment: GFR [...] Performed By: #### B 12, OSMOS #### [address] [address] .MDWon 05-11-2024 Monocyte Distribution Width 18.58 Normal 0.00-20.[address] [facility] Comment on above: Result Comment: For ED adult patients suspected of sepsis, MDW<=20.0 does not rule out sepsis or risk of sepsis Performed By: #### M DW, CBC, ADIFF, ANEU #### [facility] [address] [place], [place] [address] .NEUABSon 05-11-2024 Neutrophil, Absolute 2.1 10 3/mcL Low 2.9-6.2 [facility] Comment on above: Performed By: #### M DW, CBC, ADIFF, ANEU #### [facility] [address] [place], [place] [address] Neutrophil, Absolute 2.3 10 3/mcL Normal 2.3-8.1 [facility] MAIN Comment on above: Performed By: #### B 12, OSMOS #### [address] [address] B12on 05-11-2024 Cobalamin (Vitamin B12) [Mass/Vol] 1813 pg/mL High 211-911 [facility] Comment on above: Performed By: #### B 12, OSMOS #### [address] [address] BMPon 05-11-2024 Chloride [Moles/Vol] 80 mmol/L Low 98-110 [facility] Comment on above: Performed By: #### B MP, GFR #### [address] [address] Electrolyte Balance 5.0 mEq/L Normal 4.0-15.0 [facility] MAIN Comment on above: Performed By: #### B MP, GFR #### [address] [address] Potassium [Moles/Vol] 3.6 mmol/L Normal 3.5-5.0 [facility] Comment on above: Performed By: #### B MP, GFR #### [address] [address] Sodium [Moles/Vol] 122 mmol/L Low 136-145 [facility] Comment on above: Performed By: #### B MP, GFR #### [address] [address] BUN/Creatinine Ratio 9.6 ratio Low 10.0-22.0 [facility] Comment on above: Performed By: #### B MP, GFR #### [address] [address] Calcium [Mass/Vol] 9.8 mg/dL Normal 8.7-10.4 [facility] Comment on above: Performed By: #### B MP, GFR #### [address] [address] CO2 [Moles/Vol] 37 mmol/L High 2232 [facility] Comment on above: Performed By: #### B MP, GFR #### [address] [address] Creatinine [Mass/Vol] 1.46 mg/dL High 0.60-1.40 [facility] Comment on above: Result Comment: Test ing performed on [employer] analyzer using enzymatic creatinine methodology. Performed By: #### B MP, GFR #### [address] [address] Glucose [Mass/Vol] 96 mg/dL Normal 70-110 [facility] Comment on above: Performed By: #### B MP, GFR #### [address] [address] Urea nitrogen [Mass/Vol] 14.0 mg/dL Normal 8.0-22.0 [facility] Comment on above: Performed By: #### B MP, GFR #### [address] [address] BUN/Creatinine Ratio 9.0 ratio Low 10.0-22.0 [facility] Comment on above: Performed By: #### B 12, OSMOS #### [address] [address] Calcium [Mass/Vol] 9.7 mg/dL Normal 8.7-10.4 [facility] Comment on above: Performed By: #### B 12, OSMOS #### [address] [address] Chloride [Moles/Vol] 80 mmol/L Low 98-110 [facility] Comment on above: Performed By: #### B 12, OSMOS #### [address] [address] CO2 [Moles/Vol] 35 mmol/L High 22-32 [facility] Comment on above: Performed By: #### B 12, OSMOS #### [address] [address] Creatinine [Mass/Vol] 1.56 mg/dL High 0.60-1.40 [facility] Comment on above: Result Comment: Test ing performed on [employer] analyzer using enzymatic creatinine methodology. Performed By: #### B 12, TREVOR #### [address] [address] Electrolyte Balance 6.0 mEq/L Normal 4.0-15.0 [facility] Comment on above: Performed By: #### B 12, TREVOR #### [address] [address] Glucose [Mass/Vol] 148 mg/dL High 70-110 [facility] Comment on above: Performed By: #### B 12, TREVOR #### [place] [id number] Potassium [Moles/Vol] 3.5 mmol/L Normal 3.5-5.0 [facility] Comment on above: Performed By: #### B 12, TREVOR #### [place] [id number] Sodium [Moles/Vol] 121 mmol/L Low 136-145 [facility] Comment on above: Performed By: #### B 12, TREVOR #### [address] [address] Urea nitrogen [Mass/Vol] 14.0 mg/dL Normal 8.0-22.0 [facility] Comment on above: Performed By: #### B 12, TREVOR #### [place] [id number] BUN/Creatinine Ratio 8.4 ratio Low 10.0-22.0 [facility] Comment on above: Performed By: #### G FR, BMP #### [address] [address] Calcium [Mass/Vol] 10.3 mg/dL Normal 8.7-10.4 [facility] Comment on above: Performed By: #### G FR, BMP #### [place] [id number] Chloride [Moles/Vol] 76 mmol/L Critically abnormal 98-110 [facility] Comment on above: Performed By: #### G FR, BMP #### [address] [address] CO2 [Moles/Vol] mmol/L Critically abnormal 22-32 [facility] MA[facility] Comment on above: Performed By: #### G FR, BMP #### [address] [address] Creatinine [Mass/Vol] 1.66 mg/dL High 0.60-1.40 [facility] Comment on above: Result Comment: Test ing performed on [employer] analyzer using enzymatic creatinine methodology. Performed By: #### G FR, BMP #### [place] [id number] Electrolyte Balance <4.0 Normal 4.0-15.0 [facility] Comment on above: Performed By: #### G FR, BMP #### [address] [address] Glucose [Mass/Vol] 100 mg/dL Normal 70-110 [facility] Comment on above: Performed By: #### G FR, BMP #### [address] [address] Potassium [Moles/Vol] 3.3 mmol/L Low 3.5-5.0 [facility] Comment on above: Performed By: #### G FR, BMP #### [place] [id number] Sodium [Moles/Vol] 120 mmol/L Low 136-145 [facility] Comment on above: Performed By: #### G FR, BMP #### [address] [address] Urea nitrogen [Mass/Vol] 14.0 mg/dL Normal 8.0-22.0 [facility] Comment on above: Performed By: #### G FR, BMP #### [place] [id number] BUN/Creatinine Ratio 10.4 ratio Normal 10.0-22.0 [facility] Comment on above: Performed By: #### G FR, BMP #### [place] [id number] Calcium [Mass/Vol] 10.0 mg/dL Normal 8.7-10.4 [facility] Comment on above: Performed By: #### Jemal CLARKE, BMP #### [address] [address] Chloride [Moles/Vol] 76 mmol/L Critically abnormal 98-110 [facility] Comment on above: Performed By: #### Jemal CLARKE, BMP #### [address] [address] CO2 [Moles/Vol] 39 mmol/L High 22-32 [facility] Comment on above: Performed By: #### Jemal CLARKE, BMP #### [address] [address] Creatinine [Mass/Vol] 1.35 mg/dL Normal 0.60-1.40 [facility] Comment on above: Result Comment: Test ing performed on [employer] analyzer using enzymatic creatinine methodology. Performed By: #### Jemal CLARKE, BMP #### [address] [address] Electrolyte Balance 6.0 mEq/L Normal 4.0-15.0 [facility] Comment on above: Performed By: #### Jemal CLARKE, BMP #### [address] [address] Glucose [Mass/Vol] 99 mg/dL Normal 70-110 [facility] Comment on above: Performed By: #### Jemal CLARKE, BMP #### [address] [address] Potassium [Moles/Vol] 3.0 mmol/L Low 3.5-5.0 [facility] Comment on above: Performed By: #### Jemal FR, BMP #### [address] [address] Sodium [Moles/Vol] 121 mmol/L Low 136-145 [facility] Comment on above: Performed By: #### Jemal CLARKE, BMP #### [address] [address] Urea nitrogen [Mass/Vol] 14.0 mg/dL Normal 8.0-22.0 [facility] Comment on above: Performed By: #### G FR, BMP #### [facility] [address] [place] [address] BUN/Creatinine Ratio 9 ratio Normal 7-27 [facility] Comment on above: Performed By: #### B MP, MG, GFR #### [address] [address] Calcium [Mass/Vol] 9.6 mg/dL Normal 8.4-10.2 [facility] Comment on above: Performed By: #### B MP, MG, GFR #### [address] [address] Chloride [Moles/Vol] 73 mmol/L Low 98-107 [facility] Comment on above: Performed By: #### B MP, MG, GFR #### [address] [address] CO2 [Moles/Vol] 39 mmol/L High 22-[address] [facility] Comment on above: Performed By: #### B MP, MG, GFR #### [address] [address] Creatinine [Mass/Vol] 1.41 mg/dL High 0.70-1.30 [facility] Comment on above: Result Comment: Test ing performed on [employer] analyzer using a modified kinetic Tracey technique. Performed By: #### B MP, MG, GFR #### [address] [address] Electrolyte Balance 1.0 mEq/L Low 4.0-15.0 [facility] Comment on above: Performed By: #### B MP, MG, GFR #### [address] [address] Glucose [Mass/Vol] 144 mg/dL High 70-105 [facility] Comment on above: Performed By: #### B MP, MG, GFR #### [address] [address] Potassium [Moles/Vol] 2.8 mmol/L Low 3.5-5.1 [facility] Comment on above: Performed By: #### B MP, MG, GFR #### [address] [address] Sodium [Moles/Vol] 113 mmol/L Critically abnormal 136-[address] [facility] Comment on above: Performed By: #### B MP, MG, GFR #### [address] [address] Urea nitrogen [Mass/Vol] 13 mg/dL Normal 7-[address] [facility] Comment on above: Performed By: #### B MP, MG, GFR #### [address] [address] BUN/Creatinine Ratio 11.0 ratio Normal 10.0-22.0 [facility] Comment on above: Performed By: #### B 12, OSMOS #### [address] [address] Calcium [Mass/Vol] 10.1 mg/dL Normal 8.7-10.4 [facility] Comment on above: Performed By: #### B 12, OSMOS #### [address] [address] Chloride [Moles/Vol] 75 mmol/L Critically abnormal 98-110 [facility] Comment on above: Performed By: #### B 12, OSMOS #### [address] [address] CO2 [Moles/Vol] 38 mmol/L High 22-32 [facility] Comment on above: Performed By: #### B 12, OSMOS #### [address] [address] Creatinine [Mass/Vol] 1.27 mg/dL Normal 0.60-1.40 [facility] Comment on above: Result Comment: Test ing performed on [employer] analyzer using enzymatic creatinine methodology. Performed By: #### B 12, OSMOS #### [address] [address] Electrolyte Balance 4.0 mEq/L Normal 4.0-15.0 [facility] Comment on above: Performed By: #### B 12, OSMOS #### [facility] [address] [place] [address] Glucose [Mass/Vol] 129 mg/dL High 70-110 [facility] Comment on above: Performed By: #### B 12, OSMOS #### [facility] [address] [place] [address] Potassium [Moles/Vol] 3.2 mmol/L Low 3.5-5.0 [facility] Comment on above: Performed By: #### B 12, OSMOS #### [address] [address] Sodium [Moles/Vol] 117 mmol/L Critically abnormal 136-145 [facility] Comment on above: Performed By: #### B 12, OSMOS #### [address] [address] Urea nitrogen [Mass/Vol] 14.0 mg/dL Normal 8.0-22.0 [facility] Comment on above: Performed By: #### B 12, OSMOS #### [address] [address] CBCon 05-11-2024 Erythrocyte distribution width (RBC) [Ratio] 12.2 % Normal 11.5-14.[address] [facility] Comment on above: Performed By: #### M DW, CBC, ADIFF, ANEU #### [address] [address] Hematocrit (Bld) [Volume fraction] 34.2 % Low 42.0-52.[address] [facility] Comment on above: Performed By: #### M DW, CBC, ADIFF, ANEU #### [address] [address] Hgb 12.3 G/dL Low 14.0-18.[address] [facility] Comment on above: Performed By: #### M DW, CBC, ADIFF, ANEU #### [address] [address] MCH (RBC) [Entitic mass] 31.2 pg Normal 27.0-31.[address] [facility] Comment on above: Performed By: #### M DW, CBC, ADIFF, ANEU #### [address] [address] MCHC 36.1 G/dL High 31.8-35.[address] [facility] Comment on above: Performed By: #### M DW, CBC, ADIFF, ANEU #### [address] [address] MCV (RBC) [Entitic vol] 86.3 fL Normal 80.0-94.[address] [facility] Comment on above: Performed By: #### M DW, CBC, ADIFF, ANEU #### [address] [address] Platelet 107 10 3/mcL Low 130-[address] [facility] Comment on above: Performed By: #### M DW, CBC, ADIFF, ANEU #### [address] [address] Platelet mean volume (Bld) [Entitic vol] 7.8 fL Normal 7.4-10.[address] [facility] Comment on above: Performed By: #### M DW, CBC, ADIFF, ANEU #### [address] [address] RBC 3.96 10 6/mcL Low 4.04-6.[address] [facility] Comment on above: Performed By: #### M DW, CBC, ADIFF, ANEU #### [address] [address] WBC 2.9 10 3/mcL Low 4.6-10.[address] [facility] Comment on above: Performed By: #### M DW, CBC, ADIFF, ANEU #### [address] [address] Erythrocyte distribution width (RBC) [Ratio] 12.3 % Normal 11.5-15.5 [facility] Comment on above: Performed By: #### B 12, OSMOS #### [facility] [address] [place] [address] Hematocrit (Bld) [Volume fraction] 33.5 % Low 40.0-52.0 [facility] Comment on above: Performed By: #### B 12, OSMOS #### [place] [address] Hgb 12.2 G/dL Low 13.0-17.5 [facility] Comment on above: Performed By: #### B 12, OSMOS #### [place] [address] MCH (RBC) [Entitic mass] 31.1 pg Normal 27.0-33.0 [facility] Comment on above: Performed By: #### B 12, OSMOS #### [place] [address] MCHC 36.3 G/dL High 32.0-36.0 [facility] Comment on above: Performed By: #### B 12, OSMOS #### [place] [address] MCV (RBC) [Entitic vol] 85.5 fL Normal 81.0-100.0 [facility] Comment on above: Performed By: #### B 12, OSMOS #### [place] [address] Platelet 101 10 3/mcL Low 150-450 [facility] Comment on above: Performed By: #### B 12, OSMOS #### [place] [address] Platelet mean volume (Bld) [Entitic vol] 8.2 fL Normal 6.4-10.5 [facility] Comment on above: Performed By: #### B 12, OSMOS #### [place] [address] RBC 3.91 10 6/mcL Low 4.50-6.00 [facility] Comment on above: Performed By: #### B 12, OSMOS #### [place] [address] WBC 3.2 10 3/mcL Low 4.5-10.8 [facility] Comment on above: Performed By: #### B 12, OSMOS #### [place] [address] KURon 05-11-2024 Potassium [Moles/Vol] 26.1 mmol/L Normal [facility] Comment on above: Performed By: #### K PRISCILLA FRANKS OSMOU #### [facility] [address] [place] [address] LABORATORYOrdered By: SYSTEM SYSTEM on 05-11-2024 Calcium [...] above: Interpretive Data: T esting performed on [employer] analyzer using enzymatic creatinine methodology. Electrolyte Balance [...] above: Interpretive Data: T esting performed on [employer] analyzer using enzymatic creatinine methodology. Electrolyte Balance [...] 05-11-2024 Magnesium [Mass/Vol] 1.7 mg/dL Low 1.8-2.4 [facility] Comment on above: Performed By: #### B MP MG, GFR #### [place] [address] [address] Magnesium [Mass/Vol] 2.3 mg/dL Normal 1.6-2.4 [facility] Comment on above: Performed By: #### B 12, OSMOS #### [place] [address] NAURon 05-11-2024 U Sodium <10 Normal [facility] Comment on above: Performed By: #### G , BMP #### [place] [address] OSMOSon 05-11-2024 Osmolality [Osmolality] 249 mosm/kg Low 275-300 [facility] Comment on above: Performed By: #### B 12, OSMOS #### [place] [address] OSMOUon 05-11-2024 U Osmolality 173 mOsm/kg Low 390-1090 [facility] Comment on above: Performed By: #### K PRISCILLA FRANKS, OSMOU #### [place] [address] .Auto Diffon 05-10-2024 Basophil, Absolute 0.0 10 3/mcL Normal 0.0-0.3 [facility] Comment on above: Performed By: #### G FR, BMP #### [place] [address] Basophils/100 WBC (Bld) 0.2 % Normal 0.0-2.5 [facility] Comment on above: Performed By: #### G FR, BMP #### [address] [address] Eosinophil, Absolute 0.0 10 3/mcL Normal 0.0-0.7 [facility] Comment on above: Performed By: #### G FR, BMP #### [address] [address] Eosinophils/100 WBC (Bld) 0.2 % Normal 0.0-6.0 [facility] Comment on above: Performed By: #### G FR, BMP #### [address] [address] Lymphocyte, Absolute 0.5 10 3/mcL Low 0.9-4.3 [facility] Comment on above: Performed By: #### G FR, BMP #### [address] [address] Lymphocytes/100 WBC (Bld) 17.2 % Low 20.0-40.0 [facility] Comment on above: Performed By: #### G FR, BMP #### [address] [address] Monocyte, Absolute 0.3 10 3/mcL Normal 0.1-1.4 [facility] Comment on above: Performed By: #### G FR, BMP #### [address] [address] Monocytes/100 WBC (Bld) 9.3 % Normal 2.0-13.0 [facility] Comment on above: Performed By: #### G FR, BMP #### [address] [address] Neutrophils/100 WBC (Bld) 73.1 % Normal 50.0-75.0 [facility] Comment on above: Performed By: #### G FR, BMP #### [address] [address] .GFRon 05-10-2024 GFR >60 Normal [facility] Comment on above: Result Comment: GFR [...] Performed By: #### B 12, TODOS #### [address] [address] GFR Non- >60 [facility] Comment on above: Result Comment: GFR [...] Performed By: #### B 12, TODOS #### [address] [address] GFR 62 ml/min/1.73sqm [facility] ([place]) Comment on above: Result Comment: GFR Population [...] By: #### B MP, GFR, TROPHS #### [place] [address] [place], [place] [address] GFR Non- 51 ml/min/1.73sqm Normal [facility] ([place]) Comment on above: Result Comment: GFR Population [...] #### B MP, GFR, TROPHS #### [address] [address] .NEUABSon 05-10-2024 Neutrophil, Absolute 2.2 10 3/mcL Low 2.3-8.1 [facility] Comment on above: Performed By: #### G FR, [facility] #### [address] [address] BMPon 05-10-2024 BUN/Creatinine Ratio 9 ratio Normal 7-27 [facility] ([place]) Comment on above: Performed By: #### B MP, GFR, TROPHS #### [address] [address] Calcium [Mass/Vol] 9.9 mg/dL Normal 8.4-10.2 [facility] ([place]) Comment on above: Performed By: #### B MP, GFR, TROPHS #### [address] [address] Chloride [Moles/Vol] 69 mmol/L Low 98-107 [facility] ([place]) Comment on above: Performed By: #### B MP, GFR, TROPHS #### [address] [address] CO2 [Moles/Vol] 36 mmol/L High 22-29 [facility] ([place]) Comment on above: Performed By: #### B MP, GFR, TROPHS #### [address] [address] Creatinine [Mass/Vol] 1.42 mg/dL High 0.70-1.30 [facility] ([place]) Comment on above: Result Comment: Test ing performed on Siemens Dimension EXL analyzer using a modified kinetic Tracey technique. Performed By: #### B MP, GFR, TROPHS #### [address] [address] Electrolyte Balance 7.0 mEq/L Normal 4.0-15.0 [facility] ([place]) Comment on above: Performed By: #### B MP, GFR, TROPHS #### [address] [address] Glucose [Mass/Vol] 117 mg/dL High 70-105 [facility] ([place]) Comment on above: Performed By: #### B MP, GFR, TROPHS #### [address] [address] Potassium [Moles/Vol] 2.2 mmol/L Critically abnormal 3.5-5.1 [facility] ([place]) Comment on above: Performed By: #### B MP, GFR, TROPHS #### [address] [address] Sodium [Moles/Vol] 112 mmol/L Critically abnormal 136-145 [facility] ([place]) Comment on above: Performed By: #### B MP, GFR, TROPHS #### [address] [address] Urea nitrogen [Mass/Vol] 13 mg/dL Normal 7-18 [facility] ([place]) Comment on above: Performed By: #### B MP, GFR, TROPHS #### [facility] [address] [place], [place] [address] CAIONon 05-10-2024 Calcium Ionized 1.04 mmol/L Low 1.12-1.32 [facility] Comment on above: Performed By: #### Jemal , BMP #### [address] [address] CBCon 05-10-2024 Erythrocyte distribution width (RBC) [Ratio] 12.4 % Normal 11.5-15.5 [facility] Comment on above: Performed By: #### Jemal , BMP #### [place] [address] Hematocrit (Bld) [Volume fraction] 33.8 % Low 40.0-52.0 [facility] Comment on above: Performed By: #### Jemal , BMP #### [place] [address] Hgb 12.1 G/dL Low 13.0-17.5 [facility] Comment on above: Performed By: #### Jemal , BMP #### [place] [address] MCH (RBC) [Entitic mass] 31.3 pg Normal 27.0-33.0 [facility] Comment on above: Performed By: #### Jemal , BMP #### [place] [address] MCHC 35.8 G/dL Normal 32.0-36.0 [facility] Comment on above: Performed By: #### Jemal FR, BMP #### [place] [address] MCV (RBC) [Entitic vol] 87.5 fL Normal 81.0-100.0 [facility] Comment on above: Performed By: #### Jemal FR, BMP #### [place] [address] Platelet 114 10 3/mcL Low 150-450 [facility] Comment on above: Performed By: #### Jemal FR, BMP #### [place] [id number] Platelet mean volume (Bld) [Entitic vol] 8.7 fL Normal 6.4-10.5 [facility] Comment on above: Performed By: #### G FR, BMP #### [place] [address] RBC 3.87 10 6/mcL Low 4.50-6.00 [facility] Comment on above: Performed By: #### G FR, BMP #### [place] [address] WBC 3.0 10 3/mcL Low 4.5-10.8 [facility] Comment on above: Performed By: #### G FR, BMP #### [place] [address] CMPon 05-10-2024 Albumin Level 4.4 G/dL Normal 3.2-4.8 [facility] Comment on above: Performed By: #### B 12, TREVOR #### [place] [address] Albumin/Globulin [Mass ratio] 1.6 {ratio} Normal 0.9-1.6 [facility] Comment on above: Performed By: #### B 12, TREVOR #### [address] [address] ALP [Catalytic activity/Vol] 99 U/L Normal 38-126 [facility] Comment on above: Performed By: #### B 12, OSMOS #### [place] [id number] ALT [Catalytic activity/Vol] 253 U/L High 12-55 [facility] Comment on above: Performed By: #### B 12, OSMOS #### [address] [address] AST [Catalytic activity/Vol] 228 U/L High 8-34 [facility] Comment on above: Performed By: #### B 12, OSMOS #### [place] [id number] Bili Total 1.50 mg/dL High 0.20-1.20 [facility] Comment on above: Result Comment: Use of this assay is not recommended for patients undergoing treatment with eltrombopag due to the potential for falsely elevated results. Performed By: #### B 12, OSMOS #### [place] [address] BUN/Creatinine Ratio 12.4 ratio Normal 10.0-22.0 [facility] Comment on above: Performed By: #### B 12, OSMOS #### [place] [id number] Calcium [Mass/Vol] 10.3 mg/dL Normal 8.7-10.4 [facility] Comment on above: Performed By: #### B 12, OSMOS #### [place] [id number] Chloride [Moles/Vol] 72 mmol/L Critically abnormal 98-110 [facility] Comment on above: Performed By: #### B 12, OSMOS #### [place] [address] CO2 [Moles/Vol] 36 mmol/L High 22-32 [facility] Comment on above: Performed By: #### B 12, OSMOS #### [place] [address] Creatinine [Mass/Vol] 1.13 mg/dL Normal 0.60-1.40 [facility] Comment on above: Result Comment: Test ing performed on [employer] analyzer using enzymatic creatinine methodology. Performed By: #### B 12, OSMOS #### [place] [address] Electrolyte Balance 9.0 mEq/L Normal 4.0-15.0 [facility] Comment on above: Performed By: #### B 12, OSMOS #### [place] [id number] Globulin 2.8 G/dL Normal 1.5-3.8 [facility] Comment on above: Performed By: #### B 12, OSMOS #### [place] [id number] Glucose [Mass/Vol] 109 mg/dL Normal 70-110 [facility] Comment on above: Performed By: #### B 12, OSMOS #### [address] [address] Potassium [Moles/Vol] 2.5 mmol/L Critically abnormal 3.5-5.0 [facility] Comment on above: Performed By: #### B 12, OSMOS #### [address] [address] Sodium [Moles/Vol] 117 mmol/L Critically abnormal 136-145 [facility] Comment on above: Performed By: #### B 12, OSMOS #### [address] [address] Total Protein 7.2 G/dL Normal 5.7-8.2 [facility] Comment on above: Result Comment: No te - New Reference Range in effect 20 Performed By: #### B 12, OSMOS #### [address] [address] Urea nitrogen [Mass/Vol] 14.0 mg/dL Normal 8.0-22.0 [facility] Comment on above: Performed By: #### B 12, OSMOS #### [address] [address] [address] HEAD OR BRAIN W/O CONTRAS Ton [...] 05/10/2024 4:43:34 PM Ordering Provider: EBONY RAE [facility]) CT MAXILLOFACIAL W/O CONTRAS Ton 05-10-2024 CT [...] 05/10/2024 4:36:06 PM Ordering Provider: EBONY RAE [facility] ([place]) CT SPINE CERVICAL W/O CONTRA STon 05-10-2024 [...] Sign Date: 05/10/2024 4:33:52 PM Ordering Provider: BEONY RAE Normal [facility]) CVFLURVorubia 05-10-2024 FLU A PCR Negative Normal Negative [facility]) Comment on above: Performed By: #### C VFLURV #### [place] [address] FLU B PCR Negative Normal Negative [facility] Comment on above: Performed By: #### C VFLURV #### [address] [address] RSV PCR Negative Normal Negative [facility]) Comment on above: Performed By: #### C VFLURV #### [address] [address] SARS-CoV-2 (COVID-19) RNA MAGDALENA+probe Ql (Unsp spec) Negative Normal Negative [facility]) Comment on above: Result Comment: Resu lts [...] Performed By: #### C VFLURV #### [place] [address] LABORATORYOrdered By: SYSTEM SYSTEM on 05-10-2024 Albumin [...] Comment on above: Interpretive Data: T jaskaran [employer] (CHEST, 1991, 102:[id number]) [...] ng/L Male: 0-54 ng/L Testing performed on [employer] analyzer using direct chemiluminescent technology. WBC (Bld) [...] ng/L Male: 0-76 ng/L Testing performed on [employer] using a homogeneous sandwich chemiluminescent immunoassay based on [employer] technology. Urea nitrogen [Mass/Vol] 13 mg/dL Normal 7 - 18 mg/dL AO ADM SS Urea nitrogen/Creatinine [Mass ratio] 9 ratio Normal 7 - 27 ratio AO ADM SS LABORATORYOrdered By: Elvira Azar on 05-10-2024 Calcium Ionized 1.04 mmol/L Low 1.12 - 1.32 mmol/L AH Main Rapid Comm SS LABORATORYOrdered By: Gabrielle May on 05-10-2024 Blood Glucose Testing Reason Routine (05/10/24 8:38 PM) [facility] Glucose [Mass/Vol] 136 mg/dL High 70 - 110 mg/dL [facility] LABORATORYOrdered By: Marie Chaparro on 05-10-2024 [...] 05-10-2024 Magnesium [Mass/Vol] 2.6 mg/dL High 1.6-2.4 [facility] Comment on above: Performed By: #### G FR, BMP #### [address] [address] Magnesium [Mass/Vol] 1.7 mg/dL Low 1.8-2.4 [facility] Comment on above: Performed By: #### M G #### [facility] [address] [place], [place] [address] PHOSon 05-10-2024 Phosphate [Mass/Vol] 1.7 mg/dL Low 2.4-5.1 [facility] Comment on above: Result Comment: No te - New Reference Range in effect 20 Performed By: #### B 12, OSMOS #### [address] [address] PROon 05-10-2024 INR Coag (PPP) [Relative time] 0.9 {INR} Normal [facility] Comment on above: Result Comment: [employer] (CHEST, 1992, 102:312S-25S) recommended therapeutic range for oral anticoagulant therapy is: LOW RISK: Prophylaxis of venous thrombosis INR: 2.0-3.0 Treatment of pulmonary embolism 2.0-3.0 Prevention of systemic embolism 2.0-3.0 HIGH RISK: Mechanical prosthetic valves 2.5-3.5 Performed By: #### G , BMP #### [address] [address] PT Coag (PPP) [Time] 10.7 s Normal 9.0-14.4 [facility] Comment on above: Result Comment: Effe ctive 03/19/08, Protime results may be affected by some antibiotics (i.e. Ciprofloxacin, Azithromycin, Bactrim) which may potentiate the action of oral anticoagulants, with further increases in Protime/INR. Performed By: #### G FR, BMP #### [facility] [address] [place] [address] TROPHSon 05-10-2024 High Sensitivity Troponin I 11 ng/L Normal 0-54 [facility] Comment on above: Result Comment: High Sensitive Troponin I Reference Ranges: Female: 0-34 ng/L Male: 0-54 ng/L Testing performed on [employer] IM analyzer using direct chemiluminescent technology. Performed By: #### G FR, BMP #### [address] [address] High Sensitivity Troponin I 9 ng/L Normal 0-76 [facility] ([place]) Comment on above: Result Comment: High Sensitive Troponin I Reference Ranges: Female: 0-51 ng/L Male: 0-76 ng/L Testing performed on [employer] using a homogeneous sandwich chemiluminescent immunoassay based on [employer] technology. Performed By: #### B MPMOISÉS, SUZYS #### [place] [address] [place], [place] [address] Basophil percentageOrdered B y: Geeta Chavez on 05-17-2023 Chloride [Moles/Vol] 102 mmol/L 98-107 [facility] Cholesterol [Mass/Vol] 138 mg/dL <200 [facility] Comment on above: <200 mg/dL Desirable 200-240 mg/dL Borderline >240 mg/dL High Risk Glucose [Mass/Vol] 90 mg/dL 74-106 [facility] Potassium [Moles/Vol] 3.7 mmol/L 3.5-5.1 [facility] Sodium [Moles/Vol] 136 mmol/L 136-145 [facility] Triglyceride [Mass/Vol] 132 mg/dL <199 [facility] Comment on above: The drugs N-Acetylcy steine and Metamizole may falsely depress this assay.Serum Triglycerides Reference Interval Normal <150 mg/dL Borderline high 150 - 199 mg/dL High 200 - 499 mg/dL Very High > or = 500 mg/dL Laboratory - Chemistry and C hemistry - challengeOrdered By: Geeta Chavez on 05-17-2023 ALT [Catalytic activity/Vol] 23 U/L 16-61 [facility] CO2 [Moles/Vol] 24.0 mmol/L 21.0-32.0 [facility] Urea nitrogen/Creatinine [Mass ratio] 11.7 mg/mg 10-20 [facility] No Panel InformationOrdered By: Geeta Chavez on 05-17-2023 Estimated GFR (MDRD) Amer 119 mL/min >60 [facility] Comment on above: GFR Calc Estimated GFR (MDRD) Non-Af Amer 98 mL/min >60 [facility] Comment on above: Non- GFR Calc Prostate Specific Antigen Screen 1.05 ng/mL 0.00-4.00 [facility] Comment on above: This test was perfor med using the TPSA assay method for [employer] system. Values obtained with differentassay methods cannot be used interchangably.When changing PSA assays in the course of monitoring apatient, additional sequential testing should be carriedout to confirm baseline values. Serum or plasma calcium ashli urement (mass/volume)Ordered By: Geeta Chavez on 05-17-2023 Calcium [Mass/Vol] 9.5 mg/dL 8.5-10.1 [facility] Serum or plasma cholesterol in HDL measurement (mass/volume)Ordered By: Geeta Chavez on 05-17-2023 Cholesterol in HDL [Mass/Vol] 59 mg/dL >40 [facility] Comment on above: The drugs N-Acetylcy steine and Metamizole may falsely depress this assay. Reference Range HDL <40 mg/dL Low HDL Cholesterol HDL >or= 60 mg/dL High HDL Cholesterol Serum or plasma cholesterol in VLDL measurement (mass/volume)Ordered By: Geeta Chavez on 05-17-2023 Cholesterol in VLDL [Mass/Vol] 26 mg/dL 5-40 [facility] Serum or plasma creatinine m easurement (mass/volume)Ordered By: Geeta Chavez on 05-17-2023 Creatinine [Mass/Vol] 0.86 mg/dL 0.70-1.30 [facility] Comment on above: The validity of the calculated GFR & GFRAA in patients over 70 years has not been determined. Clinical correlation is essential. Serum or plasma low density lipoprotein (LDL) cholesterol measurement (mass/volume)Ordered By: Geeta Chavez on 05-17-2023 Cholesterol in LDL [Mass/Vol] 53 mg/dL 0-130 [facility] Serum or plasma urea nitroge n measurement (mass/volume)Ordered By: Geeta Chavez on 05-17-2023 Urea nitrogen [Mass/Vol] 10 mg/dL 7-18 [facility] Thin prep Papanicolaou smear with manual screeningOrdered By: Geeta Chavez on 05-17-2023 Thin prep Papanicolaou smear with manual screening 14 U/L 15-37 [facility] Thin prep Papanicolaou smear with manual screening 10 5-15 [facility] Basophil percentageon 2021 Chloride [Moles/Vol] 105 mmol/L 98-107 [facility] Work Phone: Cholesterol [Mass/Vol] 129 mg/dL <200 [facility] Work Phone: Comment on above: <200 mg/dL Desirable 200-240 mg/dL Borderline >240 mg/dL High Risk Glucose [Mass/Vol] 102 mg/dL 74-106 [facility] Work Phone: Comment on above: Fasting Glucose resu lt from 100 to 125 mg/dL suggests IMPAIRED HOMEOSTASIS per A.D.A. criteria. Potassium [Moles/Vol] 4.1 mmol/L 3.5-5.1 [facility] Work Phone: Sodium [Moles/Vol] 138 mmol/L 136-145 [facility] Work Phone: Triglyceride [Mass/Vol] 97 mg/dL <199 [facility] Work Phone: Comment on above: The drugs N-Acetylcy steine and Metamizole may falsely depress this assay.Serum Triglycerides Reference Interval Normal <150 mg/dL Borderline high 150 - 199 mg/dL High 200 - 499 mg/dL Very High > or = 500 mg/dL Laboratory - Chemistry and C hemistry - challengeon 04-26-2022 CO2 [Moles/Vol] 26.0 mmol/L 21.0-32.0 [facility] Work Phone: Urea nitrogen/Creatinine [Mass ratio] 20.5 mg/mg 10-20 [facility] Work Phone: No Panel Informationon 04-26 Estimated GFR (MDRD) Amer 87 mL/min >60 [facility] Work Phone: Comment on above: GFR Calc Estimated GFR (MDRD) Non-Af Amer 72 mL/min >60 [facility] Work Phone: Comment on above: Non- GFR Calc Urine Microalbumin/Creatinin e Ratio 5.6 mg/g CRE <30 [facility] Work Phone: Serum or plasma calcium ashli urement (mass/volume)on 04-26-2022 Calcium [Mass/Vol] 9.8 mg/dL 8.5-10.1 [facility] Work Phone: Serum or plasma cholesterol in HDL measurement (mass/volume)on 04-26-2022 Cholesterol in HDL [Mass/Vol] 43 mg/dL >40 [facility] Work Phone: Comment on above: The drugs N-Acetylcy steine and Metamizole may falsely depress this assay. Reference Range HDL <40 mg/dL Low HDL Cholesterol HDL >or= 60 mg/dL High HDL Cholesterol Serum or plasma cholesterol in VLDL measurement (mass/volume)on 04-26-2022 Cholesterol in VLDL [Mass/Vol] 19 mg/dL 5-40 [facility] Work Phone: Serum or plasma creatinine m easurement (mass/volume)on 04-26-2022 Creatinine [Mass/Vol] 1.12 mg/dL 0.70-1.30 [facility] Work Phone: Comment on above: The validity of the calculated GFR & GFRAA in patients over 70 years has not been determined. Clinical correlation is essential. Serum or plasma low density lipoprotein (LDL) cholesterol measurement (mass/volume)on 04-26-2022 Cholesterol in LDL [Mass/Vol] 67 mg/dL 0-130 [facility] Work Phone: Serum or plasma urea nitroge n measurement (mass/volume)on 04-26-2022 Urea nitrogen [Mass/Vol] 23 mg/dL 7-18 [facility] Work Phone: Thin prep Papanicolaou smear with manual screeningon 04-26-2022 Thin prep Papanicolaou smear with manual screening 7 5-15 [facility] Work Phone: Thin prep Papanicolaou smear with manual screening 6.7 mg/L NO RANGE EST. [facility] Work Phone: Urine creatinine measurement (mass/volume)on 04-26-2022 Creatinine (U) [Mass/Vol] 119.00 mg/dL NO RANGE EST. [facility] Work Phone: ANES Domenica 07-23-2019 ANES POST HNO ID: [id number] Author: David Salazar Service: Anesthesiology Author Type: [...] 23, 2019 TIME: 2:39 PM PAGER/CONTACT #: [phone] [facility] ANES PREOPon 07-23-2019 ANES PREOP HNO ID: [id number] Author: David Salazar Service: Anesthesiology Author Type: [...] FLUTICASONE,) 50 mcg/actuation nasal spray Use 1 [place] in each nostril once daily. - Lysine [...] July 23, 2019 TIME: 10:14 AM CSN: [id number] [facility] BRIEF OP NOTon 07-23-2019 BRIEF OP NOT HNO ID: [id number] Author: Warren Porter Service: General Surgery Author Type: Physician Type: Brief Op Note Filed: 07/23/2019 12:32 PM Note Text: BRIEF OPERATIVE NOTATION FOR SURGICAL PROCEDURE. Cesario Mg 1965 [id number] male LOG ID: [id number] Surgery/Procedure Date: 07/23/2019 Incision/Procedure Start Time: 11:25 AM Incision Close/Procedure End Time: 12:27 PM Surgeon(s)/Procedural ist(s) and Director Of Casino Marketing(s): Surgeon(s) and Role: * Warren Porter - Primary Physician Director Of Casino Marketing: Dorothy Osorio (Pa) REFERRING PHYSICIAN: Outpatient DEPT: DAMIR PROVIDER: Jeffrey POS: [id number] ANESTHESIA: Monitored Anesthesia Care ASA CLASS: 3 - Severe DIAGNOSIS: left inguinal hernia PROCEDURE: open left inguinal hernia repair with mesh - 61351-456 IVF: 1000 EBL: 10 Specimens: hernia sac ADDITIONAL DIAGNOSES: FINDINGS: indirect hernia COMPLICATIONS: None PMHx - PAST MEDICAL HISTORY Diagnosis Date - Alcohol abuse - Allergic rhinitis - Anxiety - HTN (hypertension) - Hyperlipidemia - Sleep apnea COMORBIDITIES - Chronic Alcohol Abuse and HTN Post Op Occurrences - None Wound Classification - Clean Operative note dictated in the dictation system. - [id number] Warren Porter MD [facility] HISTORY PHYSICALon 9 HISTORY PHYSICAL HNO ID: [id number] Author: Warren Porter Service: General Surgery Author [...] upper thigh and hemiscrotum. he presented to [facility] emergency department and was discharged with instructions [...] down twice. I recommended to present to [facility] emergency department. I contacted the emergency [...] FLUTICASONE,) 50 mcg/actuation nasal spray Use 1 [place] in each nostril once daily. ZINC ORAL [...] file Gets together: Not on file Attends pentecostal service: Not on file Active member of [...] left inguinal hernia repair with mesh - [id number] ? Anticipated Anesthetic: MAC with local ? Patient weight: Blood pressure 140/76, pulse 88. BMI: There is no height or weight on file to calculate BMI. ? Planned antibiotic: Ancef 2gm IVPB cutting and boning supervisor to OR ? SCDs needed - Yes [...] upper thigh and hemiscrotum. he presented to [facility] emergency department and was discharged with instructions [...] down twice. I recommended to present to [facility] emergency department. I contacted the emergency [...] FLUTICASONE,) 50 mcg/actuation nasal spray Use 1 [place] in each nostril once daily. ZINC ORAL [...] file Gets together: Not on file Attends pentecostal service: Not on file Active member of [...] left inguinal hernia repair with mesh - 66997-995 ? Anticipated Anesthetic: MAC with local ? Patient weight: Blood pressure 140/76, pulse 88. BMI: There is no height or weight on file to calculate BMI. ? Planned antibiotic: Ancef 2gm IVPB cutting and boning supervisor to OR ? SCDs needed - Yes Return to Clinic: The patient is instructed to follow-up with me 1 week post operatively. ? Warren Porter MD [facility] NURSING PROGon 07-23-2019 NURSING PROG HNO ID: [id number] Author: Crystal (Rn) ARELY Celaya Service: Nursing Author Type: Registered Nurse Type: Nursing Progress Note Filed: 07/23/2019 2:41 PM Note Text: Nursing Progress Note Patient Name: Cesario Mg Patient Location: [place] Surgery/[place] Surgery 1356 Pt received in ASCU on cart from PACU. Snack given. This note was completed by: Crystal Celaya RN 1425 IV removed. Site without redness or swelling. Homegoing instructions given. Pt verbalizes understanding. Pt able to ambulate with steady gait. 1437 Pt discharged to home via wheelchair to car accomp by staff and family in stable cond. Normal [facility] NURSING PROG HNO ID: [id number] Author: Christin LopezRn) ARELY Bennett Service: Nursing [...] and pt states he had diarrhea Normal [facility] OPERATIVE NOon 07-23-2019 OPERATIVE NO HNO ID: [id number] Author: Warren Porter Service: General Surgery Author Type: Physician Type: Operative Report Filed: 07/24/2019 8:05 AM Note Text: [facility] - Operative Report CESARIO MG Jemal : 1965 AGE: 53. SEX: M PATIENT TYPE: A HOSP [facility]: [facility] LOCATION: [facility] ATTENDING PHYSICIAN: WARREN PORTER CSN NUMBER: [id number] DATE OF SURGERY/PROCEDURE: 07/23/2019 INCISION/PROCEDURE START TIME: 11:25. INCISION CLOSE/PROCEDURE END TIME: 12:27. PREOPERATIVE DIAGNOSIS: Left inguinal hernia. POSTOPERATIVE DIAGNOSIS: Indirect left inguinal hernia. SURGEON: Warren Porter M.D. WELDER ASSISTANT: Dorothy Osorio. SURGERY/PROCEDURE: Left inguinal hernia repair with mesh plug using Covidien medium- sized plug, reference #SMPM02, lot #[id number], expires 12/04/2023. ANESTHESIA: Monitored anesthesia care. LOG ID: #[id number]. ANESTHESIOLOGIST: David Salazar. ASA: 3. INTRAVENOUS FLUIDS: [...] room in stable condition. Warren Porter M.D. [id number] /[id number] [facility] PLAN OF CAREon 07-23-2019 PLAN OF CARE HNO ID: [id number] Author: Natalie Mccloud ([employer]) Service: Pharmacy Author Type: ? Type: Plan of Care Filed: 07/23/2019 1:04 PM Note Text: WAGON PERSON BEDSIDE DELIVERY SURVEY 1. Patient to use [facility] Bedside Delivery - YES Insurance Information as follows: 2. Insurance card on file - YES 3. Credit card for payment - YES PHARMACY BEDSIDE DELIVERY SERVICE Patient Name: Cesario Mg The marked outpatient medications were Filled at: [facility] and delivered to the patient's bedside to [...] or your Primary Care Provider. Natalie Mccloud ([employer]) PAGER: [phone] July 23, 2019 1:03 PM [facility] PT EDon 07-23-2019 PT ED HNO ID: [id number] Author: Crystal LopezRn) ARELY Celaya Service: Nursing Author Type: Registered [...] Signed By: Crystal Celaya RN In Department: [facility] SURGERY [facility] PT ED HNO ID: [id number] Author: Simeon (Rn) ARELY Giron Service: Nursing Author Type: Registered Nurse Type: Patient Education Filed: 07/23/2019 9:08 AM Note Text: PATIENT EDUCATION TOPIC: PROCEDURE / SURGERY: Pre-op Teaching: PATIENT NAME: Cesario Mg PATIENT LOCATION: [place] Surgery/[place] Surgery READINESS TO LEARN COGNITIVE ABILITY: Alert [...] None Electronically Signed By: Simeon Giron RN [facility] SURGICAL PATHOLOGYon 019 SURGICAL PATHOLOGY Specimen originated from [facility] Specimen #: [id number] Submitting Physician: WARREN PORTER MD FINAL DIAGNOSIS [...] one cassette. NE/yung/07/23/19 [place] [address] Date of Report: 07/25/2019 Date of Procedure: 07/23/2019 Date of Receipt: 07/23/2019 Submitted by: WARREN PORTER MD Location: [facility] Diagnostic interpretation performed at [place] [address]. CLIA Number: [id number] [facility] NURSING PROGon 07-19-2019 NURSING PROG HNO ID: [id number] Author: Lindsey (Rn) ARELY Lyle Service: ? [...] Lyle RN July 19, 2019 8:09 AM [facility] Basic Metabolic Panlon 07-18 Anion gap [Moles/Vol] 14 mmol/L Normal -18 [facility] Calcium [Mass/Vol] 9.7 mg/dL Normal 8.5-10.2 [facility] Chloride [Moles/Vol] 90 mmol/L Low 97-105 [facility] CO2 [Moles/Vol] 29 mmol/L Normal 22-30 [facility] Creatinine [Mass/Vol] 0.94 mg/dL Normal 0.73-1.22 [facility] eGFR- Amer. >60 Normal [facility] GFR/1.73 sq M predicted among non-blacks MDRD (S/P/Bld) [Vol rate/Area] mL/min/{1.73_m2} Normal [facility] Comment on above: Result Comment: eGFR (Estimated [...] GFR. Glucose [Mass/Vol] 123 mg/dL High 74-99 [facility] Comment on above: Result Comment: The [place] Diabetes Association (ADA) provides guidance for cutoff [...] Standards of Medical Care in Diabetes 2016, [place] [employer] Association. Diabetes Care. 2016.39(Suppl 1). Potassium [Moles/Vol] 3.8 mmol/L Normal 3.7-5.1 [facility] Sodium [Moles/Vol] 133 mmol/L Low 136-144 [facility] Urea nitrogen [Mass/Vol] 8 mg/dL Low 9-24 [facility] CBC and Differentialon 07-18 Abs Baso 0.04 k/uL Normal <0.11 [facility] Abs [place] 0.48 k/uL Normal <0.87 [facility] Abs Neut 2.35 k/uL Normal 1.45-7.50 [facility] Basophils/100 WBC (Bld) 1.0 % Normal [facility] Eosinophils (Bld) [#/Vol] 0.09 10*3/uL Normal <0.46 [facility] Eosinophils/100 WBC (Bld) 2.3 % Normal [facility] Erythrocyte distribution width (RBC) [Ratio] 13.7 % Normal 11.5-15.0 [facility] Hematocrit (Bld) [Volume fraction] 41.7 % Normal 39.0-51.0 [facility] Hemoglobin (Bld) [Mass/Vol] 14.0 g/dL Normal 13.0-17.0 [facility] Lymphocytes (Bld) [#/Vol] 0.93 10*3/uL Low 1.00-4.00 [facility] Lymphocytes/100 WBC (Bld) 23.9 % Normal [facility] MCH (RBC) [Entitic mass] 31.7 pG Normal 26.0-34.0 [facility] MCHC (RBC) [Mass/Vol] 33.6 g/dL Normal 30.5-36.0 [facility] MCV (RBC) [Entitic vol] 94.3 fL Normal 80.0-100.0 [facility] Monocytes/100 WBC (Bld) 12.3 % Normal [facility] Neutrophils/100 WBC (Bld) 60.5 % Normal [facility] Platelet mean volume (Bld) [Entitic vol] 10.4 fL Normal 9.0-12.7 [facility] Platelets (Bld) [#/Vol] 152 10*3/uL Normal 150-400 [facility] RBC (Bld) [#/Vol] 4.42 10*6/uL Normal 4.20-6.00 [facility] WBC (Bld) [#/Vol] 3.89 10*3/uL Normal 3.70-11.00 [facility] HISTORY PHYSICALon 9 HISTORY PHYSICAL HNO ID: [id number] Author: Shani Saldaña (Jessica Handley Service: ? [...] FLUTICASONE,) 50 mcg/actuation nasal spray Use 1 [place] in each nostril once daily. Yes ZINC [...] fevers. Neuro: No history of TIA's, stroke, DAG COATER tumor, impaired sensorium, hemiplegia, paraplegia or quadraplegia. No neurological symptoms or problems. Denies hx STONE/migraines. Denies numbness/tingling. Respiratory: No history of current cough or dyspnea, or pneumonia in the past 6 weeks. No history of respiratory/pulmonary symptoms or problems. +Former smoker, Denies asthma. +NUHA does not use CPAP. Seasonal allergies. Cardiovascular: Positive for: HLD, Hypertension, on rx, Negative for Recent UT, Arrhythmia, CAD, Chest Pain, CHF, PVD, Valvular [...] 2019 TIME: 8:25 AM PAGER/CONTACT #: Dahiana [facility] Mindy 06-21-2019 CNOV Office Visit (GENSWS ) CESARIO MG ([id number]) 1965 M Date Time Provider Department 06/21/19 [...] upper thigh and hemiscrotum. he presented to [facility] emergency department and was discharged with instructions [...] down twice. I recommended to present to [facility] emergency department. I contacted the emergency [...] FLUTICASONE,) 50 mcg/actuation nasal spray Use 1 [place] in each nostril once daily. ZINC ORAL [...] file Gets together: Not on file Attends pentecostal service: Not on file Active member of [...] outcomes and possible complications were mentioned. [facility] a [...] left inguinal hernia repair with mesh - 55780-476 Anticipated Anesthetic: MAC with local Patient weight: Blood pressure 140/76, pulse 88. BMI: There is no height or weight on file to calculate BMI. Planned antibiotic: Ancef 2gm IVPB cutting and boning supervisor to OR SCDs needed - Yes Return [...] terrie* FLUTICASONE PROPIONATE 50 MCG* Use 1 [place] in each nostril o* ZINC ORAL Take [...] 06/21/2019 9:28 AM >> KASI PORTILLO LPN [facility] Jun 21, 2019 9:28 AM Please d.C [...] Status:Closed by WARREN PORTER MD on 06/21/19 [facility] HOSPon 06-21-2019 HOSP Patient:Balaji Mg MRN: [...] notes entered within the past 30 days [facility] PROGRESSon 06-21-2019 PROGRESS HNO ID: [id number] Author: Warren Porter Service: ? Author Type: Physician Type: Progress Notes Filed: 06/21/2019 1:01 PM Note Text: HISTORY AND PHYSICAL eCsario Mg 1965 REFERRING PHYSICIAN: MD Irvin CHIEF [...] upper thigh and hemiscrotum. he presented to [facility] emergency department and was discharged with instructions [...] down twice. I recommended to present to [facility] emergency department. I contacted the emergency [...] FLUTICASONE,) 50 mcg/actuation nasal spray Use 1 [place] in each nostril once daily. ZINC ORAL [...] file Gets together: Not on file Attends pentecostal service: Not on file Active member of [...] left inguinal hernia repair with mesh - 97731-031 Anticipated Anesthetic: MAC with local Patient weight: Blood pressure 140/76, pulse 88. BMI: There is no height or weight on file to calculate BMI. Planned antibiotic: Ancef 2gm IVPB cutting and boning supervisor to OR SCDs needed - Yes Return to Clinic: The patient is instructed to follow-up with me 1 week post operatively. Warren Porter MD [facility] CNOV 03-20-2019 CNOV Office Visit (GENSWS ) CESARIO MG ([id number]) 1965 Date Time Provider Department 03/20/19 3:20 PM WARREN PORTER During your visit today, we recorded the following information about you: Warren Porter MD 03/20/2019 5:47 PM Signed FOLLOW UP VISIT - HERNIA NAME: Cesario [facility] NO.: [id number] DATE OF SERVICE: March 20, 2019 : [...] upper thigh and hemiscrotum. he presented to [facility] emergency department and was discharged with instructions [...] down twice. I recommended to present to [facility] emergency department. I contacted the emergency [...] Known Allergies) Date Reviewed: 03/20/2019 Reviewed by: Ldyia Goodwin LPN - Fully Assessed Reason for [...] terrie* FLUTICASONE PROPIONATE 50 MCG* Use 1 [place] in each nostril o* ZINC ORAL Take [...] Status:Closed by WARREN PORTER MD on 03/20/19 [facility] PROGRESSon 03-20-2019 PROGRESS HNO ID: [id number] Author: Warren Porter Service: ? Author Type: Physician Type: Progress Notes Filed: 03/20/2019 5:47 PM Note Text: FOLLOW UP VISIT - HERNIA NAME: Cesario [facility] NO.: [id number] DATE OF SERVICE: March 20, 2019 : [...] upper thigh and hemiscrotum. he presented to [facility] emergency department and was discharged with instructions [...] down twice. I recommended to present to [facility] emergency department. I contacted the emergency [...] 3 months if needed. Warren Porter MD [facility] CNOVon 03-15-2019 CNOV Office Visit (GENSWS ) CESARIO MG ([id number]) 1965 [place] Date Time Provider Department 03/15/19 3:50 PM WARREN PORTER During your visit today, we recorded the following information about you: Warren Porter MD 03/15/2019 5:18 PM Signed FOLLOW UP VISIT - HERNIA NAME: Cesario Mg CLINIC NO.: [id number] DATE OF SERVICE: 03/15/2019 : 1965 Cesario [...] upper thigh and hemiscrotum. he presented to [facility] emergency department and was discharged with instructions [...] down twice. I recommended to present to [facility] emergency department. I contacted the emergency [...] terrie* FLUTICASONE PROPIONATE 50 MCG* Use 1 [place] in each nostril o* ZINC ORAL Take [...] by WARREN PORTER MD on 03/15/19 Normal [facility] PROGRESSon 03-15-2019 PROGRESS HNO ID: [id number] Author: Warren Porter Service: ? Author Type: Physician Type: Progress Notes Filed: 03/15/2019 5:18 PM Note Text: FOLLOW UP VISIT - HERNIA NAME: Cesario [facility] NO.: [id number] DATE OF SERVICE: 03/15/2019 : 1965 Cesario [...] upper thigh and hemiscrotum. he presented to [facility] emergency department and was discharged with instructions [...] down twice. I recommended to present to [facility] emergency department. I contacted the emergency [...] me in 4 days. Warren Porter MD [facility] ANES Domenica 03-07-2019 ANES POST HNO ID: [id number] Author: David Salazar Service: Anesthesiology Author Type: [...] 07, 2019 TIME: 12:39 PM PAGER/CONTACT #: [phone] [facility] ANES PREOPon 03-07-2019 ANES PREOP HNO ID: [id number] Author: David Salazar Service: Anesthesiology Author Type: [...] FLUTICASONE,) 50 mcg/actuation nasal spray Use 1 [place] in each nostril once daily. ZINC ORAL [...] March 07, 2019 TIME: 9:49 AM CSN: [id number] [facility] BRIEF OP NOTon 03-07-2019 BRIEF OP NOT HNO ID: [id number] Author: Warren Porter Service: General Surgery Author Type: Physician Type: Brief Op Note Filed: 03/07/2019 11:29 AM Note Text: BRIEF OPERATIVE NOTATION FOR SURGICAL PROCEDURE. Cesario Mg 1965 [id number] male LOG ID: [id number] Surgery/Procedure Date: 03/07/2019 Incision/Procedure Start Time: 10:30 AM Incision Close/Procedure End Time: 11:22 AM Surgeon(s)/Procedural ist(s) and Director Of Casino Marketing(s): Surgeon(s) and Role: * Warren Porter - Primary Physician Director Of Casino Marketing: Imtiaz Osorio (Pa Pa) REFERRING PHYSICIAN: Outpatient DEPT: [facility]IR PROVIDER: Jeffrey POS: [id number] ANESTHESIA: Monitored Anesthesia Care ASA CLASS: 3 - Severe DIAGNOSIS: right inguinal hernia PROCEDURE: open right inguinal hernia repair with mesh - 61908-552 IVF: 800 EBL: minimal Specimens: cord lipoma ADDITIONAL DIAGNOSES: FINDINGS: direct and indirect COMPLICATIONS: None PMHx - PAST MEDICAL HISTORY Diagnosis Date - Alcohol abuse - Allergic rhinitis - Anxiety - HTN (hypertension) - Hyperlipidemia - Sleep apnea COMORBIDITIES - Chronic Alcohol Abuse and HTN Post Op Occurrences - None Wound Classification - Clean Operative note dictated in the dictation system. - [id number] Warren Porter MD [facility] HISTORY PHYSICALon HISTORY PHYSICAL HNO ID: [id number] Author: Warren Porter Service: General Surgery Author [...] FLUTICASONE,) 50 mcg/actuation nasal spray Use 1 [place] in each nostril once daily. ZINC ORAL [...] N/A ? Last Colonoscopy: 2018 ? Kasi Portillo LPN PHYSICAL EXAMINATION: ? General: The patient [...] right inguinal hernia repair with mesh - 95148-578 ? Anticipated Anesthetic: MAC with local ? Patient weight: Blood pressure 138/78, pulse 96, temperature 36.8 ?C (98.2 ?F), height 180.3 cm (5' 11), weight 72.6 kg (160 lb), SpO2 97 %. BMI: Body mass index is 22.32 kg/m?. ? Planned antibiotic: Ancef 2gm IVPB cutting and boning supervisor to OR ? SCDs needed - Yes Return to Clinic: The patient is instructed to follow-up with me 1 week post operatively. ? Warren Porter MD [facility] OPERATIVE NOon 03-07-2019 OPERATIVE NO HNO ID: [id number] Author: Warren Porter Service: General Surgery Author Type: Physician Type: Operative Report Filed: 03/08/2019 6:02 AM Note Text: [facility] - Operative Report CESARIO MG : 1965 AGE: 53. SEX: M PATIENT TYPE: A HOSP SVC: [facility] LOCATION: [facility] ATTENDING PHYSICIAN: WARREN PORTER CSN NUMBER: [id number] DATE OF SURGERY/PROCEDURE: 03/07/2019 INCISION/PROCEDURE START TIME: 10:30 a.m. INCISION CLOSE/PROCEDURE END TIME: 11:22 a.m. PREOPERATIVE DIAGNOSIS: Right inguinal hernia. POSTOPERATIVE DIAGNOSIS: Right direct and indirect hernia. SURGEON: Warren Porter M.D. WELDER ASSISTANT: Imtiaz PERRY. SURGERY/PROCEDURE: Right inguinal hernia with mesh plug using a Covidien small- sized mesh plug, reference #SMPM02, lot #[id number], expires 12/03/2022. ANESTHESIA: Local MAC. LOG ID NUMBER: [id number]. ANESTHESIOLOGIST: David Salazar. ASA: 3. INTRAVENOUS FLUIDS: [...] secured. DICTATION ENDS HERE Warren Porter M.D. [id number] /[id number] Normal [facility] OPERATIVE NO HNO ID: [id number] Author: Warren Porter Service: General Surgery Author Type: Physician Type: Operative Report Filed: 03/08/2019 6:02 AM Note Text: [facility] - Operative Report CESARIO MG : 1965 AGE: 53. SEX: M PATIENT TYPE: A HOSP SV: [facility] LOCATION: [facility] ATTENDING PHYSICIAN: WARREN PORTER CSN NUMBER: [id number] DATE OF SURGERY/PROCEDURE: 03/07/2019 INCISION/PROCEDURE START TIME: 10:30 a.m. INCISION CLOSE/PROCEDURE END TIME: 11:22 a.m. PREOPERATIVE DIAGNOSIS: Right inguinal hernia. POSTOPERATIVE DIAGNOSIS: Direct and indirect right inguinal hernia. SURGEON: Warren Porter M.D. WELDER ASSISTANT: Imtiaz PERRY. SURGERY/PROCEDURE: Right inguinal hernia repair with mesh using a Covidien mesh plug reference# FMPM02, lot #[id number], expires 12/03/2022. ANESTHESIA: Local MAC. LOG ID NUMBER: [id number]. ANESTHESIOLOGIST: David Salazar. ASA: 3. IV FLUIDS: [...] room in stable condition. Warren Porter M.D. [id number] [facility] PLAN OF CAREon 03-07-2019 PLAN OF CARE HNO ID: [id number] Author: Natalie Mccloud ([employer]) Service: Pharmacy Author Type: ? Type: Plan of Care Filed: 03/07/2019 1:47 PM Note Text: WAG[facility] PERSON BEDSIDE DELIVERY SURVEY 1. Patient to use [facility] Bedside Delivery - YES Insurance Information as follows: 2. Insurance card on file - YES 3. Credit card for payment - YES PHARMACY BEDSIDE DELIVERY SERVICE Patient Name: Cesario Mg The marked outpatient medications were Filled at: [facility] and delivered to the patient's bedside to [...] or your Primary Care Provider. Natalie Mccloud ([employer]) PAGER: [phone] March 07, 2019 1:47 PM [facility] PT EDon 03-07-2019 PT ED HNO ID: [id number] Author: Jackie LopezRn) ARELY Pritchett Service: ? [...] By: Jackie Pritchett, RN, BSN In Department: [facility] SURGERY [facility] PT ED HNO ID: [id number] Author: Uri (Rn) ARELY Pena Service: Nursing [...] Signed By: Uri Pena RN In Department: [facility] SURGERY [facility] SURGICAL PATHOLOGYon 019 SURGICAL PATHOLOGY Specimen originated from [facility] Specimen #: [id number] Submitting Physician: WARREN PORTER MD FINAL DIAGNOSIS [...] obvious areas of induration are grossly present. Photograph Developer sections are submitted in cassettes A1-A2. [facility]//03-07-2019 [place] [address] Date of Report: 03/09/2019 Date of Procedure: 03/07/2019 Date of Receipt: 03/07/2019 Submitted by: WARREN PORTER MD Location: [facility] Diagnostic interpretation performed at [place] [address]. CLIA Number: [id number] [facility] NURSING PROGon 03-02-2019 NURSING PROG HNO ID: [id number] Author: Anabelle Villela RN Service: ? Author [...] Villela RN March 06, 2019 7:39 AM [facility] HISTORY PHYSICALon 9 HISTORY PHYSICAL HNO ID: [id number] Author: Shani Handley Service: ? Author Type: [...] Prior to Admission medications as of 02/28/19 8307 Medication Sig Last Dose Taking citalopram (CELEXA) [...] FLUTICASONE,) 50 mcg/actuation nasal spray Use 1 [place] in each nostril once daily. Taking Yes [...] fevers. Neuro: No history of TIA's, stroke, DAG COATER tumor, impaired sensorium, hemiplegia, paraplegia or quadraplegia. No neurological symptoms or problems. Denies hx STONE/migraines. Denies numbness/tingling. Respiratory: No history of current cough or dyspnea, or pneumonia in the past 6 weeks. No history of respiratory/pulmonary symptoms or problems. +Former smoker, Denies asthma. +NUHA does not use CPAP. Seasonal allergies. Cardiovascular: Positive for: HLD, Hypertension, on rx, Negative for Recent UT, Arrhythmia, CAD, Chest Pain, CHF, PVD, Valvular [...] prepared for surgery. 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 He [...] FLUTICASONE,) 50 mcg/actuation nasal spray Use 1 [place] in each nostril once daily. ZINC ORAL [...] entered by the nurse and reviewed by va Nursing Notes: aKsi Portillo LPN 02/27/2019 3:20 PM Signed REVIEW [...] last Mammogram screening? N/A Last Colonoscopy: 2018 [facility] PHYSICAL EXAMINATION: General: The patient is 53 [...] right inguinal hernia repair with mesh - [id number] Anticipated Anesthetic: MAC with local Patient weight: Blood pressure 138/78, pulse 96, temperature 36.8 ?C (98.2 ?F), height 180.3 cm (5' 11), weight 72.6 kg (160 lb), SpO2 97 %. BMI: Body mass index is 22.32 kg/m?. Planned antibiotic: Ancef 2gm IVPB cutting and boning supervisor to OR SCDs needed - Yes Return [...] terrie* FLUTICASONE PROPIONATE 50 MCG* Use 1 [place] in each nostril o* ZINC ORAL Take [...] screening? N/A Last Colonoscopy: 2017 Kasi Portillo WIRING INSPECTOR Encounter Status:Closed by WARREN PORTER MD on 02/27/19 [facility] HOSPon 02-27-2019 [facility] Patient:Balaji Mg MRN: Height:5' 11(1.803 m) [...] for the following basenames: K,HCT Progress Notes ([facility]): Barrington Espinal 02/27/2019 3:30 PM Signed [facility] Barrington Espinal [facility] Kasi Portillo LPN 02/27/2019 3:20 PM Signed [...] FLUTICASONE,) 50 mcg/actuation nasal spray Use 1 [place] in each nostril once daily. ZINC ORAL [...] entered by the nurse and reviewed by va Nursing Notes: Kasi Portillo LPN 02/27/2019 3:20 [...] last Mammogram screening? N/A Last Colonoscopy: 2017 [facility] PHYSICAL EXAMINATION: General: The patient is 53 [...] right inguinal hernia repair with mesh - [id number] Anticipated Anesthetic: MAC with local Patient weight: Blood pressure 138/78, pulse 96, temperature 36.8 ?C (98.2 ?F), height 180.3 cm (5' 11), weight 72.6 kg (160 lb), SpO2 97 %. BMI: Body mass index is 22.32 kg/m?. Planned antibiotic: Ancef 2gm IVPB cutting and boning supervisor to OR SCDs needed - Yes Return to Clinic: The patient is instructed to follow-up with me 1 week post operatively. Warren Porter MD [facility] PROGRESSon 02-27-2019 PROGRESS HNO ID: [id number] Author: Warren Porter Service: ? Author Type: [...] FLUTICASONE,) 50 mcg/actuation nasal spray Use 1 [place] in each nostril once daily. ZINC ORAL [...] entered by the nurse and reviewed by va Nursing Notes: Kasi Portillo LPN 02/27/2019 3:20 [...] screening? N/A Last Colonoscopy: 2018 Kasi Portillo WIRING INSPECTOR PHYSICAL EXAMINATION: General: The patient is 53 [...] right inguinal hernia repair with mesh - [id number] Anticipated Anesthetic: MAC with local Patient weight: Blood pressure 138/78, pulse 96, temperature 36.8 ?C (98.2 ?F), height 180.3 cm (5' 11), weight 72.6 kg (160 lb), SpO2 97 %. BMI: Body mass index is 22.32 kg/m?. Planned antibiotic: Ancef 2gm IVPB cutting and boning supervisor to OR SCDs needed - Yes Return to Clinic: The patient is instructed to follow-up with me 1 week post operatively. Warren Porter MD [facility] Vital Signs Date Time Vital Sign Value Performing Clinician Eveline gonzalez 05-12-2024 11:08-0400 Body temperature 98.06 [degF] GREGORY RIOS MD [facility] 05-12-2024 11:08-0400 Diastolic Blood Pressure Non-Invasive 95 mm[Hg] GREGORY RIOS MD [facility] 05-12-2024 11:08-0400 Heart rate 88 /min GREGORY RIOS MD [facility] 05-12-2024 11:08-0400 Mean blood pressure 111 mm[Hg] GREGORY RIOS MD [facility] 05-12-2024 11:08-0400 Reason For Taking VItal Signs GREGORY RIOS MD [facility] 05-12-2024 11:08-0400 Respiratory rate 20 /min GREGORY RIOS MD [facility] 05-12-2024 11:08-0400 Systolic Blood Pressure Non-Invasive 164 mm[Hg] GREGORY RIOS MD [facility] 05-12-2024 10:10-0400 Heart rate 89 /min GREGORY RIOS MD [facility] 05-12-2024 09:08-0400 Diastolic Blood Pressure Non-Invasive 96 mm[Hg] GREGORY RIOS MD [facility] 05-12-2024 09:08-0400 Heart rate 86 /min GREGORY RIOS MD [facility] 05-12-2024 09:08-0400 Systolic Blood Pressure Non-Invasive 136 mm[Hg] GREGORY RIOS MD [facility] 05-12-2024 07:30-0400 Body temperature 98.06 [degF] GREGORY RIOS MD [facility] 05-12-2024 07:30-0400 Diastolic Blood Pressure Non-Invasive 96 mm[Hg] GREGORY RIOS MD [facility] 05-12-2024 07:30-0400 Mean blood pressure 108 mm[Hg] GREGORY RIOS MD [facility] 05-12-2024 07:30-0400 Reason For Taking VItal Signs GREGORY RIOS MD [facility] 05-12-2024 07:30-0400 Respiratory rate 18 /min GREGORY RIOS MD [facility] 05-12-2024 07:30-0400 Systolic Blood Pressure Non-Invasive 140 mm[Hg] GREGORY RIOS MD [facility] 05-12-2024 04:00-0400 Body temperature 98.6 [degF] GREGORY RIOS MD [facility] 05-12-2024 04:00-0400 Mean blood pressure 94 mm[Hg] GREGORY RIOS MD [facility] 05-12-2024 04:00-0400 Respiratory rate 16 /min GREGORY RIOS MD [facility] 05-11-2024 22:30-0400 Reason For Taking VItal Signs GREGORY RIOS MD [facility] 05-10-2024 22:59-0400 Body height 180.3 cm GREGORY RIOS MD [facility] 05-10-2024 22:59-0400 Body weight 79.3 kg GREGORY RIOS MD [facility] 05-10-2024 22:59-0400 Body weight 24.39 kg/m2 GREGORY RIOS MD [facility] 05-10-2024 16:26-0400 Heart rate 76 /min DR HILARY CAMPOVERDE MD [facility] 05-10-2024 16:26-0400 Respiratory rate 16 /min DR HILARY CAMPOVERDE MD [facility] 05-10-2024 15:26-0400 Diastolic Blood Pressure Non-Invasive 62 mm[Hg] DR HILARY CAMPOVERDE MD [facility] 05-10-2024 15:26-0400 Heart rate 66 /min DR HILARY CAMPOVERDE MD [facility] 05-10-2024 15:26-0400 Respiratory rate 16 /min DR HILARY CAMPOVERDE MD [facility] 05-10-2024 15:26-0400 Systolic Blood Pressure Non-Invasive 114 mm[Hg] DR HILARY CAMPOVERDE MD [facility] 05-10-2024 13:38-0400 Body temperature 98.06 [degF] DR HILARY CAMPOVERDE MD [facility] 05-10-2024 13:38-0400 Diastolic Blood Pressure Non-Invasive 62 mm[Hg] DR HILARY CAMPOVERDE MD [facility] 05-10-2024 13:38-0400 Heart rate 73 /min DR HILARY CAMPOVERDE MD [facility] 05-10-2024 13:38-0400 Respiratory rate 18 /min DR HILARY CAMPOVERDE MD [facility] 05-10-2024 13:38-0400 Systolic Blood Pressure Non-Invasive 101 mm[Hg] DR HILARY CAMPOVERDE MD [facility] Encounters Encounter Date Encounter Type Care Provider Facility Start: 05-14-2024 End: 05-14-2024 ambulatory DOMINIC MORTON DO Facility:[facility] Start: 05-14-2024 End: 05-14-2024 Patient encounter procedure JAMILA YI MD [facility] Start: 05-10-2024 End: 05-12-2024 Evaluation and management of inpatient GREGORY RIOS MD [facility] Start: 05-10-2024 End: 05-10-2024 Emergency department patient visit DR HILARY CAMPOVERDE MD [facility] Start: 02-24-2024 End: 02-24-2024 ambulatory Geeta Chavez Facility:[facility] Start: 05-17-2023 End: 05-17-2023 ambulatory [facility] Work Phone: Start: 05-17-2023 End: 05-17-2023 Patient encounter procedure [facility] Start: 04-27-2022 End: 04-27-[address] Geeta Chavez Work Phone: [facility] Start: 04-26-2022 End: 04-26-[address] Geeta Chavez Work Phone: [facility] Work Phone: Start: 04-26-2022 End: 04-26-[address] Geeta Chavez Work Phone: [facility] Start: 01-27-2022 End: 01-27-[address] Geeta Chavez Work Phone: [facility] Procedures Date Procedure Procedure Detail Performing Clinician [...] specific antigen total ASSAY OF PSA TOTAL [facility] Immunizations Immunization Date Immunization Notes Care Provider Fa cility 06-04-2018 tetanus toxoid, redu belle diphtheria toxoid, and acellular pertussis vaccine, adsorbed; Translations: [Boostrix (Tdap)] DR HILARY CAMPOVERDE MD [facility] Payers Date Payer Category Payer Unknown [id number] 2024 Unknown [id number] 2024 Self-pay [id number] 1965 Unknown [id number] 1965 Unknown [id number] 1965 Unknown [id number] Unknown [facility] AUTH REQUIR ED SEE NOTE [id number] Unknown [id number] Social History Date Type Detail Facility Start: 11-12-2021 Tobacco smoking status NHIS Unknown if ever smoked [facility] Start: 11-20-2020 Heavy [facility] Start: 11-20-2020 None [facility] Start: 11-20-2020 Spouse/ Signif icant Other [facility] Start: 01-07-2021 Chew [facility] Start: 1965 Sex Assigned At Male [facility] Tobacco Nicotine Use: CH EWS 1 CAN PER DAY. [facility] Tobacco smoking status Occasional tobacco smoker (finding) [facility] Functional Status Date Assessment Result Facility 05-12-2024 Functional Status Bed alert on, Door open, Room check performed [facility] 05-12-2024 Functional Status [facility] 05-12-2024 Functional Status [facility] 05-11-2024 Functional Status Refused [facility] 05-11-2024 Functional Status [facility] 05-11-2024 Functional Status Lunch Percent 80 [facility] 05-11-2024 Functional Status [facility] 05-11-2024 Functional Status [facility] 05-11-2024 Functional Status [facility] 05-10-2024 Functional Status Sensory Deficits None A [facility] 05-10-2024 Functional Status None [facility] 05-10-2024 Functional Status Awake [facility] 05-10-2024 Functional Status [facility] Mental Status Date Assessment Result Facility 05-12-2024 Mental Status Oriented x 4 [facility] 05-12-2024 Mental Status [facility] 05-11-2024 Mental Status [facility] 05-10-2024 Mental Status Orientation Oriented x 4 [facility] 05-10-2024 Mental Status [facility] Clinical Notes 01-07-2021 to 05-12-2024 Note Date & Type Note Facility 05-12-2024 Hospital Discharge instructions Patient Education 05/12/2024 11:51:51 Alcohol Withdrawal Syndrome, Nsoh-yw-Pgoz Alcohol Withdrawal Syndrome When a person who [...] away. Follow these instructions at home: Take [id number] and prescription medicines only as told by [...] 02/07/2009 Document Revised: 08/04/2018 Document Reviewed: 04/28/2018 Voyat Patient Education 2020 [employer]. Follow Up Care 05/10/2024 17:49:59 With:Follow up with primary care provider Address:Unknown When:1-2 days [facility] 05-12-2024 Note Discharge Instructions Thank you for allowing [facility] to assist you with your healthcare needs. [...] by mouth Once a day Pickup at [facility]/pharmacy #[id number] Unchanged amLODIPine (amLODIPine 5 mg oral tablet) 1 tab(s) by mouth Once a day Unchanged cetirizine 10 Milligram by mouth Once a day Unchanged multivitamin (Multivitamin) 1 tab(s) by mouth Every day Unchanged rosuvastatin (rosuvastatin 40 mg oral tablet) 0.5 Milligram by mouth Once a day Pharmacy Information [facility]/pharmacy #[id number]: [address], [place] [phone] What How Much When Comments Stop Taking [...] away. Follow these instructions at home: Take kmti-awd-[id number] and prescription medicines only as told by [...] 02/07/2009 Document Revised: 08/04/2018 Document Reviewed: 04/28/2018 Voyat Patient Education 2020 [employer]. Additional Information VACCINATE! IT SAVES LIVES! Members of the community who have not yet received the COVID-19 vaccine and would like to receive it can visit one of [facility] vaccine clinics. There are many vaccine clinic locations within the [facility]. For locations and available times, please visit [email or web address].pai o.[email or web address] It is important to note that some COVID mobile vaccine clinics are held outdoors and may be canceled in rainy or stormy conditions. To learn more about pediatric vaccinations (ages 5-11), we invite you to visit the [facility] webpage. https://www.[email or web address].org/pag es/0079-Fgwxu-Bithwkqticf-[email or web address] wb-Qkuhv-Bteyjqawc.html To learn more about the COVID-19 vaccine, we invite you to visit the CDC website for a list of frequently asked questions.https://www.cdc.gov/lee navirus/2019-ncov/vaccines/faq.htm ann marie [employer] Patient Portal Access Instructions: Stay connected with your healthcare team and access your personal medical information anytime with the [employer] Patient Portal. Please follow the directions below to create your [employer] account: 1.Access the email account you provided upon registration to the hospital/physician office.2.Look for an invitation email from [facility].3.Open the email and access the invitation link: Accept Invitation to [facility].4.Fill in the required swanson to create your account. To access your account, visit [email or web address]. Click the blue button labeled Access Patient [...] you will allow to register on the [facility] [employer] Patient Portal for access to your information. You can also access the [facility] Patient Portal on the [facility] [facility] yael. Simply click on Patient Portal and then log into your account. If you would like to receive a full copy of your medical records, please contact the [facility] Medical Records Department by calling [phone], Tuesday through Tuesday between 8 a.m. and [...] Call your local pharmacy or go to [email or web address] to find one close to you.3.Make use of household items: Use cat litter or old coffee grounds to dispose medications if other options are not available. Mix your drugs with these household products, seal them in an airtight container and throw it into the garbage. Call [facility]: [phone] to be sure your drugs can be [...] Signatures Patient Education Materials Alcohol Withdrawal Syndrome, Szzc-vk-Trow Medication Leaflets My discharge plan and instructions have been reviewed and explained to me and I,BALAJI MG understand my current condition and have read and understand these discharge instructions. I have received a written copy of the plan/instructions. If I have questions, I am aware that I should contact my doctor. Patient/Photograph Developer Signature: Date/Time: Relationship to Patient: ___ Witness Name/Signature: Date/Time: [facility] 05-12-2024 Discharge summary Discharge Diagnosis Hypo-osmolality and hyponatremia (E87.1 - ICD-10-CM) Hyperlipidemia, unspecified (E78.5 - ICD-10-CM) Essential (primary) hypertension (I10 - ICD-10-CM) Hypokalemia (E87.6 - ICD-10-CM) Hypomagnesemia (E83.42 - ICD-10-CM) Ataxia, unspecified (R27.0 - ICD-10-CM) Alcohol abuse, uncomplicated (F10.10 - ICD-10-CM) Additional Orders: Ordered: BMP,05/12/24 14:00:00 EDT, Timed Study (collect at specified time), Blood, Once, Preferred Lab: [facility], Stop date 05/12/24 14:00:00 EDT Discontinued: Consult [...] qDay, # 30 tab(s), 0 Refill(s), Pharmacy: [facility]/pharmacy #[id number], 180.3, cm, 05/10/24 22:59:00 EDT, Height, kg, 05/10/24 22:59:00 EDT, Dosing Weight Hospital Course Patient is a pleasant male with a history of significant alcohol abuse who comes in after having a syncopal event at home. He was found to be severely hyponatremic and was admitted to the medical intensive care unit here at [facility]. His sodium was slowly corrected and [...] tablet)1 tab(s) by mouth once a day. [id number] Milligram by mouth once a day. multivitamin [...] YI MD FAC on 05/12/2024 01:00 PM [facility] 05-11-2024 History and physical note Date [...] discontinued after ED physician spoke with the scientific recruiter. Imaging at [facility] included a [...] GERALDINE SAEED DO on 05/11/2024 12:33 AM [facility] 05-11-2024 Note Date of Service 05/11/24 [...] Eye Bilateral - Skin Abnormality Color: Black, Adams Bilateral - Skin Abnormality Type: Bruise Eye [...] by ARELY Lunsford on 05/11/2024 11:26 AM [facility] 05-10-2024 History and physical note Date [...] discontinued after ED physician spoke with the scientific recruiter. Imaging at [facility] included a [...] GERALDINE SAEED DO on 05/11/2024 12:33 AM [facility] 05-10-2024 Note ORIGINAL EXAMINATION: CT OF [...] 05/10/2024 4:33:52 PM Ordering Provider: EBONY RAE [facility] 05-10-2024 Note ORIGINAL EXAMINATION: CT OF THE [...] 05/10/2024 4:36:06 PM Ordering Provider: EBONY RAE [facility] 05-10-2024 Note ORIGINAL EXAMINATION: CT OF THE [...] 05/10/2024 4:43:34 PM Ordering Provider: EBONY RAE [facility] 05-10-2024 Note Sinus rhythm Prolonged LA interval Left atrial enlargement Borderline ST elevation, anterior leads Baseline wander in lead(s) V2 Electronic Signature: MD GILLES, HILARY HARRINGTON 05/10/2024 15:36:28 [facility] 05-10-2024 Evaluation + Plan note Diagnostic Tests PendingComplete Blood Count 05/10/24.Auto Differential 05/10/24.Neutro Absolute 05/10/24.[place] Distribution Width 05/10/24 [facility] 01-04-2024 Evaluation + Plan note Extrac can [...] Tests Pending * Basic Metabolic Panel 05/12/24 [facility] 05-05-2021 Evaluation note* Diagnosis Onset Date Resolution Status History of loop recorder January 07, 2021 ch ronic Syncope and collapse chronic History of loop recorder January 07, 2021 ch ronic Syncope and collapse chronic [facility] Work Phone: Evaluation noteNo assessment information available [facility] Work Phone: Hospital course Narrative No data available for this section [facility] Hospital Discharge instructions No data available for this section [facility] Progress note No data available for this section [facility] Reason for referral (narrative)No reason for [facility]: Summary Purpose Family History No Family History Records Found Relationship Condition Age at Onset Recorded Date/T alla mother Asthma Unknown Advance Directives No Advanced Directives Records Found Advance Directive Response Recorded Date/ Time Advance Directives No January 07, 2021 7:04am Living Will No October 06 10:15am Power of Aerodynamicist No October 06, 2021 10:15am Chief Complaint [...] section and content) DATE CREATED AUTHOR 07/18/2019 [facility] DATE CREATED AUTHOR AUTHOR'S ORGANIZ ATION 07/25/2019 [facility] DATE CREATED AUTHOR AUTHOR'S ORGANIZ ATION 05/12/[address] [facility] ([place]) DATE CREATED AUTHOR AUTHOR'S ORGANIZ ATION 05/16/[address] [facility] DATE CREATED AUTHOR AUTHOR'S ORGANIZ ATION 05/19/2024 [facility] DATE CREATED AUTHOR AUTHOR'S ORGANIZ ATION 02/27/2025 [facility] Goals (unrecognized section and content) Goals [...] Dr. Geeta Chavez MD Primary Care Provider, [facility] Provider Active FOR RECORDS PERTAINING TO PATIENTS [...] BE BASED ON THE PRIMARY CLINICAL RECORDS. [employer] provides no warranty or guarantee of the accuracy or completeness of information in this document.
[2025-08-24 17:26] VITALS: BMI 22.4
[2025-08-24] MEDS: Nicotine (PBKC) 21 MG Patch TD (17:40)
[2025-08-24] MEDS: 0.9% Saline Lock 10 ML Syringe IV (17:40)
[2025-08-24] MEDS: 0.9% Normal Saline (1000mL) 1,000 ML 100 ML IV (17:40)
[2025-08-24 17:45] VITALS: BP 141/92; PULSE 99; RESP 18; O2SAT 99
[2025-08-24 21:20] VITALS: BP 124/82; PULSE 98; RESP 20; TEMP 37.8; O2SAT 97
[2025-08-25] MEDS: 0.9% Normal Saline (1000mL) 1,000 ML 100 ML IV (02:59)
[2025-08-25 03:00] VITALS: BP 139/78; PULSE 87; RESP 18; TEMP 37.7; O2SAT 96
[2025-08-25 05:47] LABS: AST(SGOT) 154 U/L (<=37); Alanine Aminotransfer ALT/SGPT 168 U/L (<=46); Albumin, Serum 4.3 g/dL (3.5-5.0); Alkaline Phosphatase 92 U/L (40-129); Anion Gap 12 (5-15); BUN 12 mg/dL (4-19); BUN/Creat Ratio 14.9 RATIO (10-20); Calcium,Total 9.1 mg/dL (7.6-11.0); Carbon Dioxide 27.7 mmol/L (21.0-32.0); Chloride 91 mmol/L (98-108); Estimated Creatinine Clearance 101.53 ml/min (50-250); Globulin 2.6 g/dL (2.2-4.2); Glucose 98 mg/dL (70-99); Potassium 3.7 mmol/L (3.3-5.1)
[2025-08-25 09:00] VITALS: BP 126/73; PULSE 86; RESP 16; TEMP 37.2; O2SAT 96
[2025-08-25] MEDS: Thiamine Hydrochloride 100 MG Tablet PO (09:39)
[2025-08-25] MEDS: Potassium Chloride Oral Tablet 20 MEQ PO (09:39)
--- NOTE | 2025-08-25 11:58 | PN_ITS ---
Subjective Subjective Patient seen and examined. His nurse was by his bedside. She complained of some tremors of his upper extremities but had no other withdrawal symptoms or any other complaints. Review of systems otherwise negative. He has remained hemodynamically stable. Objective Data Objective Data Vital Signs: Vital Signs Temp Pulse Resp BP Pulse Ox O2 Del Method 99.9 F H 87 18 139/78 H 96 Room Air 08/25/25 03:00 08/25/25 03:00 08/25/25 03:00 08/25/25 03:00 08/25/25 03:00 08/25/25 03:26 Oxygen Delivery Method Room Air Weight: 161 lb 2.526 oz Body Mass Index (BMI) 22.4 Intake & Output: Intake and Output for Last 24 Hours 08/23/25 08/24/25 08/25/25 23:59 23:59 23:59 Intake Total 360 / 1260 2731.67 / 2731.67 Balance 360 / 1260 2731.67 / 2731.67 Lab / Micro Data 08/24/25 14:45 08/25/25 04:34 Labs: Laboratory Results - last 24 hr 08/24/25 14:44: Urine Opiates Screen NEGATIVE, U Buprenorphine Qual NEGATIVE, Ur Oxycodone Screen NEGATIVE, Urine Methadone Screen NEGATIVE, Urine Fentanyl Screen NEGATIVE, Ur Barbiturates Screen NEGATIVE, Ur Phencyclidine Scrn NEGATIVE, Ur Amphetamines Screen NEGATIVE, U Benzodiazepines Scrn NEGATIVE, Urine Cocaine Screen NEGATIVE, U Cannabinoids Screen NEGATIVE 08/24/25 14:45: WBC 4.4, RBC 4.57 L, Hgb 14.3, Hct 40.5, MCV 88.6, MCH 31.3, MCHC 35.3, RDW Std Deviation 37.2, RDW Coeff of Sheryl 11.8, Plt Count 100 L, MPV 10.4, Immature Gran % (Auto) 0.000, Neut % (Auto) 80.3 H, Lymph % (Auto) 12.2 L, [place] % (Auto) 6.1, Eos % (Auto) 0.5, Baso % (Auto) 0.9, Absolute Neuts (auto) 3.6, Absolute Lymphs (auto) 0.54 L, Nucleated RBC % 0, Sodium 133, Potassium 3.7, Chloride 89 L, Carbon Dioxide 25.8, Anion Gap 18 H, BUN 11, Creatinine 0.84, Estim Creat Clear Calc 102.09, Est GFR (MDRD) Non-Af 101, BUN/Creatinine Ratio 12.8, Glucose 131 H, Calcium 9.5, Total Bilirubin 0.70, AST 203 H, ALT 215 H, Alkaline Phosphatase 99, Total Protein 7.6, Albumin 4.8, Globulin 2.9, Albumin/Globulin Ratio 1.7, Ethyl Alcohol 302.0 H* 08/25/25 04:34: Sodium 131 L, Potassium 3.7, Chloride 91 L, Carbon Dioxide 27.7, Anion Gap 12, BUN 12, Creatinine 0.82, Estim Creat Clear Calc 101.53, Est GFR (MDRD) Non-Af 102, BUN/Creatinine Ratio 14.9, Glucose 98, Calcium 9.1, Total Bilirubin 0.81, AST 154 H, ALT 168 H, Alkaline Phosphatase 92, Total Protein 7.0, Albumin 4.3, Globulin 2.6, Albumin/Globulin Ratio 1.7 Physical Exam Const alert, oriented x3 and no apparent distress General Appearance: cooperative HEENT normocephalic, head/scalp atraumatic, moist oral mucous membranes and oropharynx normal Eyes EOMs intact bilaterally Neck supple and no JVD Lymph Lymphatic: no lymphedema noted Resp normal respiratory effort, normal air movement and clear to auscultation bilaterally Cardio regular rate, regular rhythm, S1 normal heart sound, S2 normal heart sound and no murmurs GI normal to inspection, nondistended, normoactive bowel sounds, soft to palpation and non-tender Extremity normal capillary refill, no clubbing, cyanosis or edema and no calf tenderness General Extremity: no tenderness to palpation of joints or extremities Skin General Skin Exam: no breakdown Neuro no focal motor deficits and no sensory deficits noted Neuro Narrative: has some tremors of the upper extremities. Motor Exam: general weakness Psych thought process normal, cooperative and affect normal Appearance: appropriate Assessment & Plan Assessment/Plan (1) Alcohol withdrawal: PLAN: Plan #Acute alcohol withdrawal * On alcohol drawl protocol with phenobarbital. Adjunctive meds for symptomatic relief. * On p.o. thiamine, folic acid and Multi-Chuck. * Monitor CIWA score. Urine tox was negative #History of COPD: Not in exacerbation. Breathing treatments bronchodilators. #Benign essential hypertension: On lisinopril and hydrochlorothiazide. #Hyperlipidemia: Statin. DVT prophylaxis: lovenox Charges/Coding Visit Charges Inpatient E&M: 58628 Subs Hosp L2
[2025-08-25] MEDS: Nicotine (PBKC) 21 MG Patch TD (12:17)
[2025-08-25] MEDS: FLU VACCINE 2025-26(6MOS UP) 45 MCG/0.5 ML SYRINGE IM (12:18)
[2025-08-25 14:00] VITALS: BP 135/75; PULSE 88; RESP 16; TEMP 36.9; O2SAT 96
[2025-08-25] MEDS: Nicotine 2mg Gum (PBKC) 2 MG GUM PO (16:35)
[2025-08-25 18:21] VITALS: BP 148/79; PULSE 96; RESP 15; TEMP 36.8; O2SAT 96
[2025-08-25 22:12] VITALS: BP 169/93; PULSE 64; RESP 19; TEMP 36.9; O2SAT 96
[2025-08-26 01:45] VITALS: BP 115/83; PULSE 80; RESP 16; TEMP 37; O2SAT 98
[2025-08-26] MEDS: 0.9% Saline Lock 10 ML Syringe IV ×2 (01:48→07:51)
[2025-08-26 05:48] VITALS: BP 157/94; PULSE 71; RESP 20; TEMP 36.4; O2SAT 100
--- NOTE | 2025-08-26 07:03 | PCM.PN.HOSP ---
Reason for Visit Chief Complaint: requesting ETOH detox Subjective Subjective Feeling better. Feels needed to leave as he has a doctor's appointment and have other details to attend to. Objective Data Objective Data Vital Signs: Vital Signs Temp Pulse Resp BP Pulse Ox O2 Del Method 36.4 C L 71 20 H 157/94 H 100 Room Air 08/26/25 05:48 08/26/25 05:48 08/26/25 05:48 08/26/25 05:48 08/26/25 05:48 08/26/25 05:48 Oxygen Delivery Method Room Air Weight: 73.1 kg Body Mass Index (BMI) 22.4 Intake & Output: Intake and Output for Last 24 Hours 08/24/25 08/25/25 08/26/25 23:59 23:59 23:59 Intake Total 360 / 1260 5331.67 / 5331.67 500 / 500 Balance 360 / 1260 5331.67 / 5331.67 500 / 500 Lab / Micro Data 08/24/25 14:45 08/25/25 04:34 Physical Exam Const alert and no apparent distress Constitutional Narrative: Up in chair. Appropriate. Nontoxic. HEENT head/scalp atraumatic and moist oral mucous membranes Assessment & Plan Assessment/Plan (1) Alcohol withdrawal: PLAN: Plan Acute alcohol withdrawal phenobarbital taper. Adjunctive meds for symptomatic relief. On p.o. thiamine, folic acid Addiction medicine yet to see. Patient states that he knows someone to go over at [facility] and has plans to follow-up there. Chronic medical conditions: History of COPD: Not in exacerbation. Breathing treatments bronchodilators. Benign essential hypertension: On lisinopril and hydrochlorothiazide. Hyperlipidemia: Statin. DVT prophylaxis: lovenox
[2025-08-26 07:44] VITALS: BP 127/92; PULSE 78; RESP 18; TEMP 36.6; O2SAT 99
[2025-08-26] MEDS: Nicotine (PBKC) 21 MG Patch TD (07:47)
[2025-08-26] MEDS: Thiamine Hydrochloride 100 MG Tablet PO (07:48)
[2025-08-26] MEDS: Potassium Chloride Oral Tablet 20 MEQ PO (07:48)
[2025-08-26 08:40] VITALS: PULSE 80
--- NOTE | 2025-08-26 09:42 | PCM.DC.SUM ---
Providers Date of Admission: 08/24/25 Primary Care Physician: Dr. Geeta Chavez MD Reason For Visit: ALCOHOL DETOX Diagnosis Discharge Diagnosis (1) Alcohol withdrawal: Status: Acute Code(s): F10.939 - Alcohol use, unspecified with withdrawal, unspecified Plan Acute alcohol withdrawal phenobarbital taper. Adjunctive meds for symptomatic relief. On p.o. thiamine, folic acid Addiction medicine yet to see. Patient states that he knows someone to go over at [facility] and has plans to follow-up there. Chronic medical conditions: History of COPD: Not in exacerbation. Breathing treatments bronchodilators. Benign essential hypertension: On lisinopril and hydrochlorothiazide. Hyperlipidemia: Statin. DVT prophylaxis: lovenox Medications at Discharge Home Medications cetirizine 10 mg tablet 10 mg PO DAILY allergies 07/09/20 potassium chloride 20 mEq oral packet 20 meq PO DAILY supplement 11/05/20 sodium bicarbonate 325 mg tablet 325 mg PO BID stomach 11/05/20 multivit,Ca,min-iron 8 mg-folic acid 200 mcg-lycopene 600 mcg tablet (Centrum Men) 1 tab PO DAILY supplement 11/20/20 rosuvastatin 5 mg tablet 5 mg PO DAILY 06/27/23 lisinopril 20 mg tablet 20 mg PO DAILY blood pressure 08/24/25 Hospital Course Operations None Procedures None Summary of Care Provided Hospital Course: Patient presents for acute alcohol withdrawal. Patient's course was uncomplicated. Patient was planning on leaving sodium content to doctors appointment other details. Medically he is otherwise stable and I feel that he is appropriate to go. Patient states that he is going to reach out to 182 arrange follow-up. Weight / BMI Weight Weight: 73.1 kg Body Mass Index (BMI) 22.4 ABG / Lab / Microbiology Data 08/24/25 14:45 08/25/25 04:34 D/C Instructions DC O2, CPAP, BIPAP Needs Home O2 Discharge instructions: No Meaningful Use Info Meaningful Use Meaningful Use Diagnoses (Choose all that apply): None applicable Discharge Plan Admission Admit Date/Time: 08/24/25 15:42 Primary Reason for Your Visit: Alcohol withdrawal Attending Provider: Jad Bernardo Primary Care Provider: Geeta Chavez Consulting Providers: Cherelle Heredia; Ashley Gomez Instructions Additional Instructions / Restrictions: Please follow up with [facility] for follow up. Discharge Orders/Prescriptions Prescriptions: Continued Centrum Men 8 mg iron- 200 mcg-600 mcg tablet 1 tab PO DAILY sodium bicarbonate 325 mg tablet 325 mg PO BID Patient Comments: TAKE 1 TABLET BY MOUTH TWICE A DAY potassium chloride 20 mEq packet 20 meq PO DAILY rosuvastatin 5 mg tablet 5 mg PO DAILY cetirizine 10 MG tablet 10 mg PO DAILY lisinopril 20 mg tablet 20 mg PO DAILY Referrals / Follow Up: Geeta Chavez MD [Primary Care Provider, Family Practice] Disposition Disposition (needs filled in before D/C Order can be placed): Home, Self Care Charges/Coding Visit Charges Inpatient E&M: 59541 Disch Hosp
--- NOTE | 2025-08-26 09:54 | ADDICTION ---
Client has chosen to leave AMA.
== END 2025-08-26 10:00 | disposition home or self-care (01) ==
LOC: ED 15:41 → MS3 08-25 07:13
PROVIDERS: Admitting Provider Internal Medicine; Emergency Provider Emergency Medicine; PCP Family Medicine
DX: F10.229 Alcohol dependence with intoxication, unspecified (principal); J44.89 Other specified chronic obstructive pulmonary disease; F10.239 Alcohol dependence with withdrawal, unspecified; E78.00 Pure hypercholesterolemia, unspecified; I10 Essential (primary) hypertension; F17.220 Nicotine dependence, chewing tobacco, uncomplicated; G47.33 Obstructive sleep apnea (adult) (pediatric); R74.01 Elevation of levels of liver transaminase levels; Z79.899 Other long term (current) drug therapy; Y90.8 Blood alcohol level of 240 mg/100 ml or more; Z23 Encounter for immunization
CPT/HCPCS: 36415; 80053; 80307; 82077; 85025; 96361; 96372; 96374; 99221; 99285; A4216; G0378

== ENCOUNTER → 2025-08-28 | Outpatient (CLI) | payer MEDICAID, SELFPAY ==
--- OUTSIDE RECORDS SUMMARY | 2025-08-28 10:34 | XMS RPT_ITS | CCD ---
Author Organization [facility] Care Team Providers Care Avionics Technician Name Role Phone Dr. Geeta Chavez Primary Care Provider Dr. Macario Mendoza Attending Provider Dr. Macario Mendoza Referring Provider Dr. Geeta Chavez Referring Provider Kortney Reyes Attending Provider Unavailable DOMINIC MORTON DO Primary Care Physician GREGORY RIOS MD Consulting Unavailable PRAVEEN HANDLEY, [facility] Primary Care Unavailable GILLES HARRINGTON, DR RICHARD Attending Unavailab le PRAVEEN DO, [facility] Primary Care Unavailable KASSIDY HARRINGTON FACP, JAMILA Moya Attending Unavail able PRAVEEN HANDLEY DOMINIC Primary Care Unavailable KASSIDY HARRINGTON FACP, JAMILA Moya Consulting Unavail able KSASIDY HARRINGTON FACP, JAMILA Moya Attending Unavail yoan [...] Uncoded] Allergy to substance 4 runny nose [facility] Medications Current Medications Medication Drug Class(es) Dates [...] # 30 tab(s), 0 Refill(s), Pharmacy: [facility]/pharmacy #[id number], 180.3, cm, 05/10/24 22:59:00 EDT, Height, [...] Oral, Daily Start Date: 03/08/19 Status: Ordered Mv,Ca,Ifs-Yliy-Po-Lycope ne (Centrum Men) 8 mg iron- 200 mcg-600 mcg tablet (3 sources) Start: 11-20-2020 take 8 tablets by mouth once daily Mv,Ca,Oeo-Nbtx-Pf-Lycop sim (Centrum Men) 8 mg iron- 200 [...] Start Date: 03/08/19 Status: Ordered lactobacillus acidophilus [id number] unt oral capsule (3 sources) Start: 10-06-2021 End: 06-27-2023 take 10 capsules by mouth once daily Lactobacillus Acidophilus (Probiotic) 10 billion cell Capsule Discontinued [id number] NMA PO DAILY October 06, 2021 1:00am [...] Facility .GFRon 05-14-2024 GFR 67 ml/min/1.73sqm Normal [facility] Comment on above: Result Comment: GFR Population [...] Performed By: #### Jemal CLARKE, BMP #### [address] [address] GFR Non- 55 ml/min/1.73sqm Normal [facility] Comment on above: Result Comment: GFR Population [...] Performed By: #### Jemal CLARKE, BMP #### [address] [address] BMPon 05-14-2024 BUN/Creatinine Ratio 8 ratio Normal 7-27 [facility] Comment on above: Performed By: #### G , BMP #### [address] [address] Calcium [Mass/Vol] 10.0 mg/dL Normal 8.4-10.2 [facility] Comment on above: Performed By: #### G , BMP #### [address] [address] Chloride [Moles/Vol] 91 mmol/L Low 98-107 [facility] Comment on above: Performed By: #### G , BMP #### [address] [address] CO2 [Moles/Vol] 32 mmol/L High 22-29 [facility] Comment on above: Performed By: #### G , BMP #### [address] [address] Creatinine [Mass/Vol] 1.33 mg/dL High 0.70-1.30 [facility] Comment on above: Result Comment: Test ing performed on Siemens Dimension EXL analyzer using a modified kinetic Tracey technique. Performed By: #### Jemal CLARKE, BMP #### [address] [address] Electrolyte Balance 7.0 mEq/L Normal 4.0-15.0 [facility] Comment on above: Performed By: #### Jemal CLARKE, BMP #### [address] [address] Glucose [Mass/Vol] 151 mg/dL High 70-105 [facility] Comment on above: Performed By: #### Jemal CLARKE, BMP #### [address] [address] Potassium [Moles/Vol] 3.9 mmol/L Normal 3.5-5.1 [facility] Comment on above: Performed By: #### Jemal CLARKE, BMP #### [address] [address] Sodium [Moles/Vol] 130 mmol/L Low 136-145 [facility] Comment on above: Performed By: #### Jemal CLARKE, BMP #### [address] [address] Urea nitrogen [Mass/Vol] 11 mg/dL Normal 7-18 [facility] Comment on above: Performed By: #### Jemal CLARKE, BMP #### [address] [address] LABORATORYOrdered By: SYSTEM SYSTEM on 05-14-2024 Calcium [...] .GFRon 05-12-2024 GFR Non- >60 [facility] Comment on above: Result Comment: [...] Performed By: #### B MP, GFR #### [place] [address] GFR >60 Normal [facility] Comment on above: Result Comment: [...] Performed By: #### B MP, GFR #### [address] [address] BMPon 05-12-2024 BUN/Creatinine Ratio 12.2 ratio Normal 10.0-22.0 [facility] Comment on above: Performed By: #### B MP, GFR #### [address] [address] Calcium [Mass/Vol] 9.8 mg/dL Normal 8.7-10.4 [facility] Comment on above: Performed By: #### B MP, GFR #### [address] [address] Chloride [Moles/Vol] 86 mmol/L Low 98-110 [facility] Comment on above: Performed By: #### B MP, GFR #### [address] [address] CO2 [Moles/Vol] 37 mmol/L High 22-32 [facility] Comment on above: Performed By: #### B MP, GFR #### [address] [address] Creatinine [Mass/Vol] 1.23 mg/dL Normal 0.60-1.40 [facility] Comment on above: Result Comment: Test ing performed on ThoughtBox analyzer using enzymatic creatinine methodology. Performed By: #### B MP, GFR #### [address] [address] Electrolyte Balance 4.0 mEq/L Normal 4.0-15.0 [facility] Comment on above: Performed By: #### B MP, GFR #### [address] [address] Glucose [Mass/Vol] 97 mg/dL Normal 70-110 [facility] Comment on above: Performed By: #### B MP, GFR #### [address] [address] Potassium [Moles/Vol] 3.0 mmol/L Low 3.5-5.0 [facility] Comment on above: Performed By: #### B MP, GFR #### [facility] [address] [place] [address] Sodium [Moles/Vol] 127 mmol/L Low 136-145 [facility] Comment on above: Performed By: #### B MP, GFR #### [facility] [address] [place] [address] Urea nitrogen [Mass/Vol] 15.0 mg/dL Normal 8.0-22.0 [facility] Comment on above: Performed By: #### B MP, GFR #### [facility] [address] [place] [address] LABORATORYOrdered By: SYSTEM SYSTEM on 05-12-2024 Calcium [Mass/Vol] 9.8 mg/dL Normal 8.7 - 10. 4 mg/dL ADM SS Chloride [Moles/Vol] 86 mmol/L Low 98 - 11 0 mEq/L AH ADM SS CO2 [Moles/Vol] 37 mmol/L High 22 - 32 mEq/L AH ADM SS Creatinine [Mass/Vol] 1.23 mg/dL Normal 0.60 - 1.40 mg/dL ADM SS Comment on above: Interpretive Data: T esting performed on ThoughtBox analyzer using enzymatic creatinine methodology. Electrolyte Balance [...] Basophil, Absolute 0.0 10 3/mcL Normal 0.0-0.2 [facility] Comment on above: Performed By: #### M DW, CBC, ADIFF, ANEU #### [address] [address] Basophils/100 WBC (Bld) 0.2 % Normal 0.0-2.5 [facility] Comment on above: Performed By: #### M DW, CBC, ADIFF, ANEU #### [address] [address] Eosinophil, Absolute 0.0 10 3/mcL Normal 0.0-0.4 [facility] Comment on above: Performed By: #### M DW, CBC, ADIFF, ANEU #### [address] [address] Eosinophils/100 WBC (Bld) 0.1 % Normal 0.0-7.0 [facility] Comment on above: Performed By: #### M DW, CBC, ADIFF, ANEU #### [address] [address] Lymphocyte, Absolute 0.4 10 3/mcL Low 0.8-3.9 [facility] Comment on above: Performed By: #### M DW, CBC, ADIFF, ANEU #### [address] [address] Lymphocytes/100 WBC (Bld) 14.4 % Normal 10.0-50.0 [facility] Comment on above: Performed By: #### M DW, CBC, ADIFF, ANEU #### [address] [address] Monocyte, Absolute 0.4 10 3/mcL Normal 0.2-1.0 [facility] Comment on above: Performed By: #### M DW, CBC, ADIFF, ANEU #### [address] [address] Monocytes/100 WBC (Bld) 12.3 % Normal 1.7-13.0 [facility] Comment on above: Performed By: #### M DW, CBC, ADIFF, ANEU #### [address] [address] Neutrophils/100 WBC (Bld) 73.0 % Normal 37.0-80.0 [facility] Comment on above: Performed By: #### M DW, CBC, ADIFF, ANEU #### [address] [address] Basophil, Absolute 0.0 10 3/mcL Normal 0.0-0.3 [facility] Comment on above: Performed By: #### B 12, OSMOS #### [facility] [address] [place] [address] Basophils/100 WBC (Bld) 0.4 % Normal 0.0-2.5 [facility] Comment on above: Performed By: #### B 12, OSMOS #### [address] [address] Eosinophil, Absolute 0.0 10 3/mcL Normal 0.0-0.7 [facility] Comment on above: Performed By: #### B 12, OSMOS #### [address] [address] Eosinophils/100 WBC (Bld) 0.1 % Normal 0.0-6.0 [facility] Comment on above: Performed By: #### B 12, OSMOS #### [address] [address] Lymphocyte, Absolute 0.5 10 3/mcL Low 0.9-4.3 [facility] Comment on above: Performed By: #### B 12, TREVOR #### [address] [address] Lymphocytes/100 WBC (Bld) 14.9 % Low 20.0-40.0 [facility] Comment on above: Performed By: #### B 12, TREVOR #### [address] [address] Monocyte, Absolute 0.4 10 3/mcL Normal 0.1-1.4 [facility] Comment on above: Performed By: #### B 12, TREVOR #### [address] [address] Monocytes/100 WBC (Bld) 11.0 % Normal 2.0-13.0 [facility] Comment on above: Performed By: #### B 12, OSMOS #### [address] [address] Neutrophils/100 WBC (Bld) 73.6 % Normal 50.0-75.0 [facility] Comment on above: Performed By: #### B 12, TREVOR #### [address] [address] .GFRon 05-11-2024 GFR 60 ml/min/1.73sqm Normal [facility] Comment on above: Result Comment: GFR [...] Performed By: #### B MP, GFR #### [address] [address] GFR Non- 50 ml/min/1.73sqm [facility] Comment on above: Result Comment: [...] Performed By: #### B MP, GFR #### [address] [address] GFR 56 ml/min/1.73sqm [facility] Comment on above: Result Comment: [...] Performed By: #### B 12, OSMOS #### [address] [address] GFR Non- 46 ml/min/1.73sqm [facility] Comment on above: Result Comment: [...] Performed By: #### B 12, TODOS #### [address] [address] GFR 52 ml/min/1.73sqm [facility] Comment on above: Result Comment: [...] Performed By: #### G FR, BMP #### [address] [address] GFR Non- 43 ml/min/1.73sqm [facility] Comment on above: Result Comment: [...] Performed By: #### G FR, BMP #### [address] [address] GFR Non- 54 ml/min/1.73sqm [facility] Comment on above: Result Comment: [...] Performed By: #### G FR, BMP #### [address] [address] GFR >60 [facility] Comment on above: Result Comment: [...] Performed By: #### G FR, BMP #### [address] [address] GFR 63 ml/min/1.73sqm [facility] Comment on above: Result Comment: GFR [...] By: #### B MP, MG, GFR #### [address] [address] GFR Non- 52 ml/min/1.73sqm [facility] Comment on above: Result Comment: GFR [...] By: #### B MP, MG, GFR #### [place] [address] [place], [place] [address] GFR >60 Normal [facility] Comment on above: Result Comment: [...] Performed By: #### B 12, OSMOS #### [address] [address] GFR Non- 58 ml/min/1.73sqm Normal [facility] Comment on above: Result Comment: GFR [...] Performed By: #### B 12, OSMOS #### [address] [address] .MDWon 05-11-2024 Monocyte Distribution Width 18.58 Normal 0.00-20.00 [facility] Comment on above: Result Comment: For ED adult patients suspected of sepsis, MDW<=20.0 does not rule out sepsis or risk of sepsis Performed By: #### M DW, CBC, ADIFF, ANEU #### [facility] [address] [place], [place] [address] .NEUABSon 05-11-2024 Neutrophil, Absolute 2.1 10 3/mcL Low 2.9-6.2 [facility] Comment on above: Performed By: #### M DW, CBC, ADIFF, ANEU #### [facility] [address] [place], [place] [address] Neutrophil, Absolute 2.3 10 3/mcL Normal 2.3-8.1 [facility] Comment on above: Performed By: #### B 12, OSMOS #### [address] [address] B12on 05-11-2024 Cobalamin (Vitamin B12) [Mass/Vol] 1813 pg/mL High 211-911 [facility] Comment on above: Performed By: #### B 12, OSMOS #### [address] [address] BMPon 05-11-2024 Chloride [Moles/Vol] 80 mmol/L Low 98-110 [facility] Comment on above: Performed By: #### B MP, GFR #### [address] [address] Electrolyte Balance 5.0 mEq/L Normal 4.0-15.0 [facility] Comment on above: Performed By: #### B MP, GFR #### [address] [address] Potassium [Moles/Vol] 3.6 mmol/L Normal 3.5-5.0 [facility] Comment on above: Performed By: #### B MP, GFR #### [address] [address] Sodium [Moles/Vol] 122 mmol/L Low 136-145 [facility] Comment on above: Performed By: #### B MP, GFR #### [address] [address] BUN/Creatinine Ratio 9.6 ratio Low 10.0-22.0 [facility] Comment on above: Performed By: #### B MP, GFR #### [address] [address] Calcium [Mass/Vol] 9.8 mg/dL Normal 8.7-10.4 [facility] Comment on above: Performed By: #### B MP, GFR #### [address] [address] CO2 [Moles/Vol] 37 mmol/L High 2232 [facility] Comment on above: Performed By: #### B MP, GFR #### [address] [address] Creatinine [Mass/Vol] 1.46 mg/dL High 0.60-1.40 [facility] Comment on above: Result Comment: Test ing performed on ThoughtBox analyzer using enzymatic creatinine methodology. Performed By: #### B MP, GFR #### [address] [address] Glucose [Mass/Vol] 96 mg/dL Normal 70-110 [facility] Comment on above: Performed By: #### B MP, GFR #### [address] [address] Urea nitrogen [Mass/Vol] 14.0 mg/dL Normal 8.0-22.0 [facility] Comment on above: Performed By: #### B MP, GFR #### [address] [address] BUN/Creatinine Ratio 9.0 ratio Low 10.0-22.0 [facility] Comment on above: Performed By: #### B 12, OSMOS #### [address] [address] Calcium [Mass/Vol] 9.7 mg/dL Normal 8.7-10.4 [facility] Comment on above: Performed By: #### B 12, OSMOS #### [address] [address] Chloride [Moles/Vol] 80 mmol/L Low 98-110 [facility] Comment on above: Performed By: #### B 12, OSMOS #### [address] [address] CO2 [Moles/Vol] 35 mmol/L High 22-32 [facility] Comment on above: Performed By: #### B 12, OSMOS #### [address] [address] Creatinine [Mass/Vol] 1.56 mg/dL High 0.60-1.40 [facility] Comment on above: Result Comment: Test ing performed on ThoughtBox analyzer using enzymatic creatinine methodology. Performed By: #### B 12, TREVOR #### [address] [address] Electrolyte Balance 6.0 mEq/L Normal 4.0-15.0 [facility] Comment on above: Performed By: #### B 12, TREVOR #### [address] [address] Glucose [Mass/Vol] 148 mg/dL High 70-110 [facility] Comment on above: Performed By: #### B 12, TREVOR #### [place] [id number] Potassium [Moles/Vol] 3.5 mmol/L Normal 3.5-5.0 [facility] Comment on above: Performed By: #### B 12, TREVOR #### [place] [phone] Sodium [Moles/Vol] 121 mmol/L Low 136-145 [facility] Comment on above: Performed By: #### B 12, TREVOR #### [address] [address] Urea nitrogen [Mass/Vol] 14.0 mg/dL Normal 8.0-22.0 [facility] Comment on above: Performed By: #### B 12, TREVOR #### [place] [phone] BUN/Creatinine Ratio 8.4 ratio Low 10.0-22.0 [facility] Comment on above: Performed By: #### G FR, BMP #### [address] [address] Calcium [Mass/Vol] 10.3 mg/dL Normal 8.7-10.4 [facility] Comment on above: Performed By: #### G FR, BMP #### [place] [id number] Chloride [Moles/Vol] 76 mmol/L Critically abnormal 98-110 [facility] Comment on above: Performed By: #### G FR, BMP #### [address] [address] CO2 [Moles/Vol] mmol/L Critically abnormal 22-32 [facility] Comment on above: Performed By: #### G FR, BMP #### [address] [address] Creatinine [Mass/Vol] 1.66 mg/dL High 0.60-1.40 [facility] Comment on above: Result Comment: Test ing performed on ThoughtBox analyzer using enzymatic creatinine methodology. Performed By: #### G FR, BMP #### [place] [phone] Electrolyte Balance <4.0 Normal 4.0-15.0 [facility] Comment on above: Performed By: #### G FR, BMP #### [address] [address] Glucose [Mass/Vol] 100 mg/dL Normal 70-110 [facility] Comment on above: Performed By: #### G FR, BMP #### [address] [address] Potassium [Moles/Vol] 3.3 mmol/L Low 3.5-5.0 [facility] Comment on above: Performed By: #### G FR, BMP #### [place] [phone] Sodium [Moles/Vol] 120 mmol/L Low 136-145 [facility] Comment on above: Performed By: #### G FR, BMP #### [address] [address] Urea nitrogen [Mass/Vol] 14.0 mg/dL Normal 8.0-22.0 [facility] Comment on above: Performed By: #### G FR, BMP #### [place] [phone] BUN/Creatinine Ratio 10.4 ratio Normal 10.0-22.0 [facility] Comment on above: Performed By: #### G FR, BMP #### [place] [phone] Calcium [Mass/Vol] 10.0 mg/dL Normal 8.7-10.4 [facility] Comment on above: Performed By: #### Jemal CLARKE, BMP #### [address] [address] Chloride [Moles/Vol] 76 mmol/L Critically abnormal 98-110 [facility] Comment on above: Performed By: #### Jemal CLARKE, BMP #### [address] [address] CO2 [Moles/Vol] 39 mmol/L High 22-32 [facility] Comment on above: Performed By: #### Jemal CLARKE, BMP #### [address] [address] Creatinine [Mass/Vol] 1.35 mg/dL Normal 0.60-1.40 [facility] Comment on above: Result Comment: Test ing performed on ThoughtBox analyzer using enzymatic creatinine methodology. Performed By: #### Jemal CLARKE, BMP #### [address] [address] Electrolyte Balance 6.0 mEq/L Normal 4.0-15.0 [facility] Comment on above: Performed By: #### Jemal CLARKE, BMP #### [address] [address] Glucose [Mass/Vol] 99 mg/dL Normal 70-110 [facility] Comment on above: Performed By: #### Jemal CLARKE, BMP #### [address] [address] Potassium [Moles/Vol] 3.0 mmol/L Low 3.5-5.0 [facility] Comment on above: Performed By: #### Jemal FR, BMP #### [address] [address] Sodium [Moles/Vol] 121 mmol/L Low 136-145 [facility] Comment on above: Performed By: #### Jemal CLARKE, BMP #### [address] [address] Urea nitrogen [Mass/Vol] 14.0 mg/dL Normal 8.0-22.0 [facility] Comment on above: Performed By: #### G FR, BMP #### [facility] [address] [place] [address] BUN/Creatinine Ratio 9 ratio Normal 7-27 [facility] Comment on above: Performed By: #### B MP, MG, GFR #### [address] [address] Calcium [Mass/Vol] 9.6 mg/dL Normal 8.4-10.2 [facility] Comment on above: Performed By: #### B MP, MG, GFR #### [address] [address] Chloride [Moles/Vol] 73 mmol/L Low 98-107 [facility] Comment on above: Performed By: #### B MP, MG, GFR #### [address] [address] CO2 [Moles/Vol] 39 mmol/L High 22-29 [facility] Comment on above: Performed By: #### B MP, MG, GFR #### [address] [address] Creatinine [Mass/Vol] 1.41 mg/dL High 0.70-1.30 [facility] Comment on above: Result Comment: Test ing performed on Siemens Dimension EXL analyzer using a modified kinetic Tracey technique. Performed By: #### B MP, MG, GFR #### [address] [address] Electrolyte Balance 1.0 mEq/L Low 4.0-15.0 [facility] Comment on above: Performed By: #### B MP, MG, GFR #### [address] [address] Glucose [Mass/Vol] 144 mg/dL High 70-105 [facility] Comment on above: Performed By: #### B MP, MG, GFR #### [address] [address] Potassium [Moles/Vol] 2.8 mmol/L Low 3.5-5.1 [facility] Comment on above: Performed By: #### B MP, MG, GFR #### [address] [address] Sodium [Moles/Vol] 113 mmol/L Critically abnormal 136-145 [facility] Comment on above: Performed By: #### B MP, MG, GFR #### [address] [address] Urea nitrogen [Mass/Vol] 13 mg/dL Normal 7-18 [facility] Comment on above: Performed By: #### B MP, MG, GFR #### [address] [address] BUN/Creatinine Ratio 11.0 ratio Normal 10.0-22.0 [facility] Comment on above: Performed By: #### B 12, OSMOS #### [address] [address] Calcium [Mass/Vol] 10.1 mg/dL Normal 8.7-10.4 [facility] Comment on above: Performed By: #### B 12, OSMOS #### [address] [address] Chloride [Moles/Vol] 75 mmol/L Critically abnormal 98-110 [facility] Comment on above: Performed By: #### B 12, OSMOS #### [address] [address] CO2 [Moles/Vol] 38 mmol/L High 22-32 [facility] Comment on above: Performed By: #### B 12, OSMOS #### [address] [address] Creatinine [Mass/Vol] 1.27 mg/dL Normal 0.60-1.40 [facility] Comment on above: Result Comment: Test ing performed on ThoughtBox analyzer using enzymatic creatinine methodology. Performed By: #### B 12, OSMOS #### [address] [address] Electrolyte Balance 4.0 mEq/L Normal 4.0-15.0 [facility] Comment on above: Performed By: #### B 12, OSMOS #### [facility] [address] [place] [address] Glucose [Mass/Vol] 129 mg/dL High 70-110 [facility] Comment on above: Performed By: #### B 12, OSMOS #### [facility] [address] [place] [address] Potassium [Moles/Vol] 3.2 mmol/L Low 3.5-5.0 [facility] Comment on above: Performed By: #### B 12, OSMOS #### [address] [address] Sodium [Moles/Vol] 117 mmol/L Critically abnormal 136-145 [facility] Comment on above: Performed By: #### B 12, OSMOS #### [address] [address] Urea nitrogen [Mass/Vol] 14.0 mg/dL Normal 8.0-22.0 [facility] Comment on above: Performed By: #### B 12, OSMOS #### [address] [address] CBCon 05-11-2024 Erythrocyte distribution width (RBC) [Ratio] 12.2 % Normal 11.5-14.5 [facility] Comment on above: Performed By: #### M DW, CBC, ADIFF, ANEU #### [address] [address] Hematocrit (Bld) [Volume fraction] 34.2 % Low 42.0-52.0 [facility] Comment on above: Performed By: #### M DW, CBC, ADIFF, ANEU #### [address] [address] Hgb 12.3 G/dL Low 14.0-18.0 [facility] Comment on above: Performed By: #### M DW, CBC, ADIFF, ANEU #### [address] [address] MCH (RBC) [Entitic mass] 31.2 pg Normal 27.0-31.2 [facility] Comment on above: Performed By: #### M DW, CBC, ADIFF, ANEU #### [address] [address] MCHC 36.1 G/dL High 31.8-35.4 [facility] Comment on above: Performed By: #### M DW, CBC, ADIFF, ANEU #### [address] [address] MCV (RBC) [Entitic vol] 86.3 fL Normal 80.0-94.0 [facility] Comment on above: Performed By: #### M DW, CBC, ADIFF, ANEU #### [address] [address] Platelet 107 10 3/mcL Low 130-400 [facility] Comment on above: Performed By: #### M DW, CBC, ADIFF, ANEU #### [address] [address] Platelet mean volume (Bld) [Entitic vol] 7.8 fL Normal 7.4-10.4 [facility] Comment on above: Performed By: #### M DW, CBC, ADIFF, ANEU #### [address] [address] RBC 3.96 10 6/mcL Low 4.04-6.13 [facility] Comment on above: Performed By: #### M DW, CBC, ADIFF, ANEU #### [address] [address] WBC 2.9 10 3/mcL Low 4.6-10.8 [facility] Comment on above: Performed By: #### M DW, CBC, ADIFF, ANEU #### [address] [address] Erythrocyte distribution width (RBC) [Ratio] 12.3 % Normal 11.5-15.5 [facility] Comment on above: Performed By: #### B 12, OSMOS #### [facility] [address] [place] [address] Hematocrit (Bld) [Volume fraction] 33.5 % Low 40.0-52.0 [facility] Comment on above: Performed By: #### B 12, OSMOS #### [place] [address] Hgb 12.2 G/dL Low 13.0-17.5 [facility] Comment on above: Performed By: #### B 12, OSMOS #### [place] [address] MCH (RBC) [Entitic mass] 31.1 pg Normal 27.0-33.0 [facility] Comment on above: Performed By: #### B 12, OSMOS #### [place] [address] MCHC 36.3 G/dL High 32.0-36.0 [facility] Comment on above: Performed By: #### B 12, OSMOS #### [place] [address] MCV (RBC) [Entitic vol] 85.5 fL Normal 81.0-100.0 [facility] Comment on above: Performed By: #### B 12, OSMOS #### [place] [address] Platelet 101 10 3/mcL Low 150-450 [facility] Comment on above: Performed By: #### B 12, OSMOS #### [place] [address] Platelet mean volume (Bld) [Entitic vol] 8.2 fL Normal 6.4-10.5 [facility] Comment on above: Performed By: #### B 12, OSMOS #### [place] [address] RBC 3.91 10 6/mcL Low 4.50-6.00 [facility] Comment on above: Performed By: #### B 12, OSMOS #### [place] [address] WBC 3.2 10 3/mcL Low 4.5-10.8 [facility] Comment on above: Performed By: #### B 12, OSMOS #### [place] [address] KURon 05-11-2024 Potassium [Moles/Vol] 26.1 mmol/L Normal [facility] Comment on above: Performed By: #### K PRISCILLA FRANKS OSMOU #### [facility] [address] [place] [address] LABORATORYOrdered By: SYSTEM SYSTEM on 05-11-2024 Calcium [...] above: Interpretive Data: T esting performed on ThoughtBox analyzer using enzymatic creatinine methodology. Electrolyte Balance [...] above: Interpretive Data: T esting performed on [employer] analyzer using enzymatic creatinine methodology. Electrolyte Balance [...] 05-11-2024 Magnesium [Mass/Vol] 1.7 mg/dL Low 1.8-2.4 [facility] Comment on above: Performed By: #### B MP MG, GFR #### [place] [address] [address] Magnesium [Mass/Vol] 2.3 mg/dL Normal 1.6-2.4 [facility] Comment on above: Performed By: #### B 12, OSMOS #### [place] [address] NAURon 05-11-2024 U Sodium <10 Normal [facility] Comment on above: Performed By: #### G , BMP #### [place] [address] OSMOSon 05-11-2024 Osmolality [Osmolality] 249 mosm/kg Low 275-300 [facility] Comment on above: Performed By: #### B 12, OSMOS #### [place] [address] OSMOUon 05-11-2024 U Osmolality 173 mOsm/kg Low 390-1090 [facility] Comment on above: Performed By: #### K PRISCILLA FRANKS, OSMOU #### [place] [address] .Auto Diffon 05-10-2024 Basophil, Absolute 0.0 10 3/mcL Normal 0.0-0.3 [facility] Comment on above: Performed By: #### G FR, BMP #### [place] [address] Basophils/100 WBC (Bld) 0.2 % Normal 0.0-2.5 [facility] Comment on above: Performed By: #### G FR, BMP #### [address] [address] Eosinophil, Absolute 0.0 10 3/mcL Normal 0.0-0.7 [facility] Comment on above: Performed By: #### G FR, BMP #### [address] [address] Eosinophils/100 WBC (Bld) 0.2 % Normal 0.0-6.0 [facility] Comment on above: Performed By: #### G FR, BMP #### [address] [address] Lymphocyte, Absolute 0.5 10 3/mcL Low 0.9-4.3 [facility] Comment on above: Performed By: #### G FR, BMP #### [address] [address] Lymphocytes/100 WBC (Bld) 17.2 % Low 20.0-40.0 [facility] Comment on above: Performed By: #### G FR, BMP #### [address] [address] Monocyte, Absolute 0.3 10 3/mcL Normal 0.1-1.4 [facility] Comment on above: Performed By: #### G FR, BMP #### [address] [address] Monocytes/100 WBC (Bld) 9.3 % Normal 2.0-13.0 [facility] Comment on above: Performed By: #### G FR, BMP #### [address] [address] Neutrophils/100 WBC (Bld) 73.1 % Normal 50.0-75.0 [facility] Comment on above: Performed By: #### G FR, BMP #### [address] [address] .GFRon 05-10-2024 GFR >60 Normal [facility] Comment on above: Result Comment: [...] Performed By: #### B 12, TODOS #### [address] [address] GFR Non- >60 [facility] Comment on above: Result Comment: [...] Performed By: #### B 12, TODOS #### [address] [address] GFR 62 ml/min/1.73sqm [facility] ([place]) Comment on above: Result Comment: GFR Population [...] By: #### B MP, GFR, TROPHS #### [place] [address] [place], [place] [address] GFR Non- 51 ml/min/1.73sqm Normal [facility] ([place]) Comment on above: Result Comment: GFR Population [...] By: #### B MP, GFR, TROPHS #### [address] [address] .NEUABSon 05-10-2024 Neutrophil, Absolute 2.2 10 3/mcL Low 2.3-8.1 [facility] Comment on above: Performed By: #### G FR, [facility] #### [address] [address] BMPon 05-10-2024 BUN/Creatinine Ratio 9 ratio Normal 7-27 [facility] ([place]) Comment on above: Performed By: #### B MP, GFR, TROPHS #### [address] [address] Calcium [Mass/Vol] 9.9 mg/dL Normal 8.4-10.2 [facility] ([place]) Comment on above: Performed By: #### B MP, GFR, TROPHS #### [address] [address] Chloride [Moles/Vol] 69 mmol/L Low 98-107 [facility] ([place]) Comment on above: Performed By: #### B MP, GFR, TROPHS #### [address] [address] CO2 [Moles/Vol] 36 mmol/L High 22-29 [facility] ([place]) Comment on above: Performed By: #### B MP, GFR, TROPHS #### [address] [address] Creatinine [Mass/Vol] 1.42 mg/dL High 0.70-1.30 [facility] ([place]) Comment on above: Result Comment: Test ing performed on Siemens Dimension EXL analyzer using a modified kinetic Tracey technique. Performed By: #### B MP, GFR, TROPHS #### [address] [address] Electrolyte Balance 7.0 mEq/L Normal 4.0-15.0 [facility] ([place]) Comment on above: Performed By: #### B MP, GFR, TROPHS #### [address] [address] Glucose [Mass/Vol] 117 mg/dL High 70-105 [facility] ([place]) Comment on above: Performed By: #### B MP, GFR, TROPHS #### [address] [address] Potassium [Moles/Vol] 2.2 mmol/L Critically abnormal 3.5-5.1 [facility] ([place]) Comment on above: Performed By: #### B MP, GFR, TROPHS #### [address] [address] Sodium [Moles/Vol] 112 mmol/L Critically abnormal 136-145 [facility] ([place]) Comment on above: Performed By: #### B MP, GFR, TROPHS #### [address] [address] Urea nitrogen [Mass/Vol] 13 mg/dL Normal 7-18 [facility] ([place]) Comment on above: Performed By: #### B MP, GFR, TROPHS #### [facility] [address] [place], [place] [address] CAIONon 05-10-2024 Calcium Ionized 1.04 mmol/L Low 1.12-1.32 [facility] Comment on above: Performed By: #### Jemal , BMP #### [address] [address] CBCon 05-10-2024 Erythrocyte distribution width (RBC) [Ratio] 12.4 % Normal 11.5-15.5 [facility] Comment on above: Performed By: #### Jemal , BMP #### [place] [address] Hematocrit (Bld) [Volume fraction] 33.8 % Low 40.0-52.0 [facility] Comment on above: Performed By: #### Jemal , BMP #### [place] [address] Hgb 12.1 G/dL Low 13.0-17.5 [facility] Comment on above: Performed By: #### Jemal , BMP #### [place] [address] MCH (RBC) [Entitic mass] 31.3 pg Normal 27.0-33.0 [facility] Comment on above: Performed By: #### Jemal , BMP #### [place] [address] MCHC 35.8 G/dL Normal 32.0-36.0 [facility] Comment on above: Performed By: #### Jemal FR, BMP #### [place] [address] MCV (RBC) [Entitic vol] 87.5 fL Normal 81.0-100.0 [facility] Comment on above: Performed By: #### Jemal FR, BMP #### [place] [address] Platelet 114 10 3/mcL Low 150-450 [facility] Comment on above: Performed By: #### Jemal FR, BMP #### [place] [id number] Platelet mean volume (Bld) [Entitic vol] 8.7 fL Normal 6.4-10.5 [facility] Comment on above: Performed By: #### G FR, BMP #### [place] [address] RBC 3.87 10 6/mcL Low 4.50-6.00 [facility] Comment on above: Performed By: #### G FR, BMP #### [place] [address] WBC 3.0 10 3/mcL Low 4.5-10.8 [facility] Comment on above: Performed By: #### G FR, BMP #### [place] [address] CMPon 05-10-2024 Albumin Level 4.4 G/dL Normal 3.2-4.8 [facility] Comment on above: Performed By: #### B 12, TREVOR #### [place] [address] Albumin/Globulin [Mass ratio] 1.6 {ratio} Normal 0.9-1.6 [facility] Comment on above: Performed By: #### B 12, TREVOR #### [address] [address] ALP [Catalytic activity/Vol] 99 U/L Normal 38-126 [facility] Comment on above: Performed By: #### B 12, OSMOS #### [place] [id number] ALT [Catalytic activity/Vol] 253 U/L High 12-55 [facility] Comment on above: Performed By: #### B 12, OSMOS #### [address] [address] AST [Catalytic activity/Vol] 228 U/L High 8-34 [facility] Comment on above: Performed By: #### B 12, OSMOS #### [place] [id number] Bili Total 1.50 mg/dL High 0.20-1.20 [facility] Comment on above: Result Comment: Use of this assay is not recommended for patients undergoing treatment with eltrombopag due to the potential for falsely elevated results. Performed By: #### B 12, OSMOS #### [place] [address] BUN/Creatinine Ratio 12.4 ratio Normal 10.0-22.0 [facility] Comment on above: Performed By: #### B 12, OSMOS #### [place] [phone] Calcium [Mass/Vol] 10.3 mg/dL Normal 8.7-10.4 [facility] Comment on above: Performed By: #### B 12, OSMOS #### [place] [phone] Chloride [Moles/Vol] 72 mmol/L Critically abnormal 98-110 [facility] Comment on above: Performed By: #### B 12, OSMOS #### [place] [address] CO2 [Moles/Vol] 36 mmol/L High 22-32 [facility] Comment on above: Performed By: #### B 12, OSMOS #### [place] [address] Creatinine [Mass/Vol] 1.13 mg/dL Normal 0.60-1.40 [facility] Comment on above: Result Comment: Test ing performed on ThoughtBox analyzer using enzymatic creatinine methodology. Performed By: #### B 12, OSMOS #### [place] [address] Electrolyte Balance 9.0 mEq/L Normal 4.0-15.0 [facility] Comment on above: Performed By: #### B 12, OSMOS #### [place] [phone] Globulin 2.8 G/dL Normal 1.5-3.8 [facility] Comment on above: Performed By: #### B 12, OSMOS #### [place] [phone] Glucose [Mass/Vol] 109 mg/dL Normal 70-110 [facility] Comment on above: Performed By: #### B 12, OSMOS #### [address] [address] Potassium [Moles/Vol] 2.5 mmol/L Critically abnormal 3.5-5.0 [facility] Comment on above: Performed By: #### B 12, OSMOS #### [address] [address] Sodium [Moles/Vol] 117 mmol/L Critically abnormal 136-145 [facility] Comment on above: Performed By: #### B 12, OSMOS #### [address] [address] Total Protein 7.2 G/dL Normal 5.7-8.2 [facility] Comment on above: Result Comment: No te - New Reference Range in effect 20 Performed By: #### B 12, OSMOS #### [address] [address] Urea nitrogen [Mass/Vol] 14.0 mg/dL Normal 8.0-22.0 [facility] Comment on above: Performed By: #### B 12, OSMOS #### [address] [address] [address] HEAD OR BRAIN W/O CONTRAS Ton [...] 05/10/2024 4:43:34 PM Ordering Provider: EBONY RAE [facility]) CT MAXILLOFACIAL W/O CONTRAS Ton 05-10-2024 [...] 05/10/2024 4:36:06 PM Ordering Provider: EBONY RAE [facility] ([place]) CT SPINE CERVICAL W/O CONTRA STon 05-10-2024 [...] 4:33:52 PM Ordering Provider: EBONY RAE Normal [facility]) CVFLURVorubia 05-10-2024 FLU A PCR Negative Normal Negative [facility]) Comment on above: Performed By: #### C VFLURV #### [place] [address] FLU B PCR Negative Normal [facility] Comment on above: Performed By: #### C VFLURV #### [address] [address] RSV PCR Negative Normal Negative [facility]) Comment on above: Performed By: #### C VFLURV #### [address] [address] SARS-CoV-2 (COVID-19) RNA MAGDALENA+probe Ql (Unsp spec) Negative Normal Negative [facility]) Comment on above: Result Comment: Resu lts [...] Performed By: #### C VFLURV #### [place] [address] LABORATORYOrdered By: SYSTEM SYSTEM on 05-10-2024 Albumin [...] Comment on above: Interpretive Data: T jaskaran [employer] (CHEST, 1991, 102:[id number]) [...] ng/L Male: 0-54 ng/L Testing performed on [employer] analyzer using direct chemiluminescent technology. WBC (Bld) [...] ng/L Male: 0-76 ng/L Testing performed on [employer] using a homogeneous sandwich chemiluminescent immunoassay based on Savalanche technology. Urea nitrogen [Mass/Vol] 13 mg/dL Normal 7 - 18 mg/dL AO ADM SS Urea nitrogen/Creatinine [Mass ratio] 9 ratio Normal 7 - 27 ratio AO ADM SS LABORATORYOrdered By: Elvira Azar on 05-10-2024 Calcium Ionized 1.04 mmol/L Low 1.12 - 1.32 mmol/L AH Main Rapid Comm SS LABORATORYOrdered By: Gabrielle May on 05-10-2024 Blood Glucose Testing Reason Routine (05/10/24 8:38 PM) [facility] Glucose [Mass/Vol] 136 mg/dL High 70 - 110 mg/dL [facility] LABORATORYOrdered By: Marie Chaparro on 05-10-2024 [...] 05-10-2024 Magnesium [Mass/Vol] 2.6 mg/dL High 1.6-2.4 [facility] Comment on above: Performed By: #### G FR, BMP #### [address] [address] Magnesium [Mass/Vol] 1.7 mg/dL Low 1.8-2.4 [facility] Comment on above: Performed By: #### M G #### [facility] [address] [place], [place] [address] PHOSon 05-10-2024 Phosphate [Mass/Vol] 1.7 mg/dL Low 2.4-5.1 [facility] Comment on above: Result Comment: No te - New Reference Range in effect 20 Performed By: #### B 12, OSMOS #### [address] [address] PROon 05-10-2024 INR Coag (PPP) [Relative time] 0.9 {INR} Normal [facility] Comment on above: Result Comment: [employer] (CHEST, 1992, 102:[id number]) recommended therapeutic range for oral anticoagulant therapy is: LOW RISK: Prophylaxis of venous thrombosis INR: 2.0-3.0 Treatment of pulmonary embolism 2.0-3.0 Prevention of systemic embolism 2.0-3.0 HIGH RISK: Mechanical prosthetic valves 2.5-3.5 Performed By: #### G , BMP #### [address] [address] PT Coag (PPP) [Time] 10.7 s Normal 9.0-14.4 [facility] Comment on above: Result Comment: Effe ctive 03/19/08, Protime results may be affected by some antibiotics (i.e. Ciprofloxacin, Azithromycin, Bactrim) which may potentiate the action of oral anticoagulants, with further increases in Protime/INR. Performed By: #### G FR, BMP #### [facility] [address] [place] [address] TROPHSon 05-10-2024 High Sensitivity Troponin I 11 ng/L Normal 0-54 [facility] Comment on above: Result Comment: High Sensitive Troponin I Reference Ranges: Female: 0-34 ng/L Male: 0-54 ng/L Testing performed on [employer] IM analyzer using direct chemiluminescent technology. Performed By: #### G FR, BMP #### [address] [address] High Sensitivity Troponin I 9 ng/L Normal 0-76 [facility] ([place]) Comment on above: Result Comment: High Sensitive Troponin I Reference Ranges: Female: 0-51 ng/L Male: 0-76 ng/L Testing performed on [employer] using a homogeneous sandwich chemiluminescent immunoassay based on Savalanche technology. Performed By: #### B MPMOISÉS, SUZYS #### [place] [address] [place], [place] [address] Basophil percentageOrdered B y: Geeta Chavez on 05-17-2023 Chloride [Moles/Vol] 102 mmol/L 98-[address] [facility] Cholesterol [Mass/Vol] 138 mg/dL <200 [facility] Comment on above: <200 mg/dL Desirable 200-240 mg/dL Borderline >240 mg/dL High Risk Glucose [Mass/Vol] 90 mg/dL 74-106 [facility] Potassium [Moles/Vol] 3.7 mmol/L 3.5-5.1 [facility] Sodium [Moles/Vol] 136 mmol/L 136-145 [facility] Triglyceride [Mass/Vol] 132 mg/dL <199 [facility] Comment on above: The drugs N-Acetylcy steine and Metamizole may falsely depress this assay.Serum Triglycerides Reference Interval Normal <150 mg/dL Borderline high 150 - 199 mg/dL High 200 - 499 mg/dL Very High > or = 500 mg/dL Laboratory - Chemistry and C hemistry - challengeOrdered By: Geeta Chavez on 05-17-2023 ALT [Catalytic activity/Vol] 23 U/L 16-61 [facility] CO2 [Moles/Vol] 24.0 mmol/L 21.0-32.0 [facility] Urea nitrogen/Creatinine [Mass ratio] 11.7 mg/mg 10-20 [facility] No Panel InformationOrdered By: Geeta Chavez on 05-17-2023 Estimated GFR (MDRD) Amer 119 mL/min >60 [facility] Comment on above: GFR Calc Estimated GFR (MDRD) Non-Af Amer 98 mL/min >60 [facility] Comment on above: Non- GFR Calc Prostate Specific Antigen Screen 1.05 ng/mL 0.00-4.00 [facility] Comment on above: This test was perfor med using the TPSA assay method for [employer] chemistry system. Values obtained with differentassay methods cannot be used interchangably.When changing PSA assays in the course of monitoring apatient, additional sequential testing should be carriedout to confirm baseline values. Serum or plasma calcium ashli urement (mass/volume)Ordered By: Geeta Chavez on 05-17-2023 Calcium [Mass/Vol] 9.5 mg/dL 8.5-10.1 [facility] Serum or plasma cholesterol in HDL measurement (mass/volume)Ordered By: Geeta Chavez on 05-17-2023 Cholesterol in HDL [Mass/Vol] 59 mg/dL >40 [facility] Comment on above: The drugs N-Acetylcy steine and Metamizole may falsely depress this assay. Reference Range HDL <40 mg/dL Low HDL Cholesterol HDL >or= 60 mg/dL High HDL Cholesterol Serum or plasma cholesterol in VLDL measurement (mass/volume)Ordered By: Geeta Chavez on 05-17-2023 Cholesterol in VLDL [Mass/Vol] 26 mg/dL 5-40 [facility] Serum or plasma creatinine m easurement (mass/volume)Ordered By: Geeta Chavez on 05-17-2023 Creatinine [Mass/Vol] 0.86 mg/dL 0.70-1.30 [facility] Comment on above: The validity of the calculated GFR & GFRAA in patients over 70 years has not been determined. Clinical correlation is essential. Serum or plasma low density lipoprotein (LDL) cholesterol measurement (mass/volume)Ordered By: Geeta Chavez on 05-17-2023 Cholesterol in LDL [Mass/Vol] 53 mg/dL 0-130 [facility] Serum or plasma urea nitroge n measurement (mass/volume)Ordered By: Geeta Chavez on 05-17-2023 Urea nitrogen [Mass/Vol] 10 mg/dL 7-18 [facility] Thin prep Papanicolaou smear with manual screeningOrdered By: Geeta Chavez on 05-17-2023 Thin prep Papanicolaou smear with manual screening 14 U/L 15-37 [facility] Thin prep Papanicolaou smear with manual screening 10 5-15 [facility] Basophil percentageon 2021 Chloride [Moles/Vol] 105 mmol/L 98-[address] [facility] Work Phone: Cholesterol [Mass/Vol] 129 mg/dL <200 [facility] Work Phone: Comment on above: <200 mg/dL Desirable 200-240 mg/dL Borderline >240 mg/dL High Risk Glucose [Mass/Vol] 102 mg/dL 74-106 [facility] Work Phone: Comment on above: Fasting Glucose resu lt from 100 to 125 mg/dL suggests IMPAIRED HOMEOSTASIS per A.D.A. criteria. Potassium [Moles/Vol] 4.1 mmol/L 3.5-5.1 [facility] Work Phone: Sodium [Moles/Vol] 138 mmol/L 136-145 [facility] Work Phone: Triglyceride [Mass/Vol] 97 mg/dL <199 [facility] Work Phone: Comment on above: The drugs N-Acetylcy steine and Metamizole may falsely depress this assay.Serum Triglycerides Reference Interval Normal <150 mg/dL Borderline high 150 - 199 mg/dL High 200 - 499 mg/dL Very High > or = 500 mg/dL Laboratory - Chemistry and C hemistry - challengeon 04-26-2022 CO2 [Moles/Vol] 26.0 mmol/L 21.0-32.0 [facility] Work Phone: Urea nitrogen/Creatinine [Mass ratio] 20.5 mg/mg 10-20 [facility] Work Phone: No Panel Informationon 04-26 Estimated GFR (MDRD) Amer 87 mL/min >60 [facility] Work Phone: Comment on above: GFR Calc Estimated GFR (MDRD) Non-Af Amer 72 mL/min >60 [facility] Work Phone: Comment on above: Non- GFR Calc Urine Microalbumin/Creatinin e Ratio 5.6 mg/g CRE <30 [facility] Work Phone: Serum or plasma calcium ashli urement (mass/volume)on 04-26-2022 Calcium [Mass/Vol] 9.8 mg/dL 8.5-10.1 [facility] Work Phone: Serum or plasma cholesterol in HDL measurement (mass/volume)on 04-26-2022 Cholesterol in HDL [Mass/Vol] 43 mg/dL >40 [facility] Work Phone: Comment on above: The drugs N-Acetylcy steine and Metamizole may falsely depress this assay. Reference Range HDL <40 mg/dL Low HDL Cholesterol HDL >or= 60 mg/dL High HDL Cholesterol Serum or plasma cholesterol in VLDL measurement (mass/volume)on 04-26-2022 Cholesterol in VLDL [Mass/Vol] 19 mg/dL 5-40 [facility] Work Phone: Serum or plasma creatinine m easurement (mass/volume)on 04-26-2022 Creatinine [Mass/Vol] 1.12 mg/dL 0.70-1.30 [facility] Work Phone: Comment on above: The validity of the calculated GFR & GFRAA in patients over 70 years has not been determined. Clinical correlation is essential. Serum or plasma low density lipoprotein (LDL) cholesterol measurement (mass/volume)on 04-26-2022 Cholesterol in LDL [Mass/Vol] 67 mg/dL 0-130 [facility] Work Phone: Serum or plasma urea nitroge n measurement (mass/volume)on 04-26-2022 Urea nitrogen [Mass/Vol] 23 mg/dL 7-18 [facility] Work Phone: Thin prep Papanicolaou smear with manual screeningon 04-26-2022 Thin prep Papanicolaou smear with manual screening 7 5-15 [facility] Work Phone: Thin prep Papanicolaou smear with manual screening 6.7 mg/L NO RANGE EST. [facility] Work Phone: Urine creatinine measurement (mass/volume)on 04-26-2022 Creatinine (U) [Mass/Vol] 119.00 mg/dL NO RANGE EST. [facility] Work Phone: ANES Domenica 07-23-2019 ANES POST HNO ID: [id number] Author: David Salazar Service: Anesthesiology Author Type: [...] 23, 2019 TIME: 2:39 PM PAGER/CONTACT #: [phone] [facility] [facility] ANES PREOPon 07-23-2019 ANES PREOP HNO ID: [id number] Author: David Salazar Service: Anesthesiology Author Type: [...] FLUTICASONE,) 50 mcg/actuation nasal spray Use 1 Jackson in each nostril once daily. - Lysine [...] July 23, 2019 TIME: 10:14 AM CSN: [id number] [facility] BRIEF OP NOTon 07-23-2019 BRIEF OP NOT HNO ID: [id number] Author: Warren Porter Service: General Surgery Author Type: Physician Type: Brief Op Note Filed: 07/23/2019 12:32 PM Note Text: BRIEF OPERATIVE NOTATION FOR SURGICAL PROCEDURE. Cesario Mg 1965 [id number] male LOG ID: [id number] Surgery/Procedure Date: 07/23/2019 Incision/Procedure Start Time: 11:25 AM Incision Close/Procedure End Time: 12:27 PM Surgeon(s)/Procedural ist(s) and Online Merchandiser(s): Surgeon(s) and Role: * Warren Porter - Primary Physician Online Merchandiser: Dorothy Osorio (Pa) REFERRING PHYSICIAN: Outpatient DEPT: DAMIR PROVIDER: Jeffrey POS: [id number] ANESTHESIA: Monitored Anesthesia Care ASA CLASS: 3 - Severe DIAGNOSIS: left inguinal hernia PROCEDURE: open left inguinal hernia repair with mesh - 80160-398 IVF: 1000 EBL: 10 Specimens: hernia sac ADDITIONAL DIAGNOSES: FINDINGS: indirect hernia COMPLICATIONS: None PMHx - PAST MEDICAL HISTORY Diagnosis Date - Alcohol abuse - Allergic rhinitis - Anxiety - HTN (hypertension) - Hyperlipidemia - Sleep apnea COMORBIDITIES - Chronic Alcohol Abuse and HTN Post Op Occurrences - None Wound Classification - Clean Operative note dictated in the dictation system. - [id number] Warren Porter MD [facility] HISTORY PHYSICALon 9 HISTORY PHYSICAL HNO ID: [id number] Author: Warren Porter Service: General Surgery Author [...] upper thigh and hemiscrotum. he presented to [facility] emergency department and was discharged [...] down twice. I recommended to present to [facility] emergency department. I contacted the emergency department [...] FLUTICASONE,) 50 mcg/actuation nasal spray Use 1 Jackson in each nostril once daily. ZINC ORAL [...] file Gets together: Not on file Attends temple service: Not on file Active member of [...] left inguinal hernia repair with mesh - [id number] ? Anticipated Anesthetic: MAC with local ? Patient weight: Blood pressure 140/76, pulse 88. BMI: There is no height or weight on file to calculate BMI. ? Planned antibiotic: Ancef 2gm IVPB authorization representative to OR ? SCDs needed - Yes [...] upper thigh and hemiscrotum. he presented to [facility] emergency department and was discharged [...] down twice. I recommended to present to [facility] emergency department. I contacted the emergency department [...] FLUTICASONE,) 50 mcg/actuation nasal spray Use 1 Jackson in each nostril once daily. ZINC ORAL [...] file Gets together: Not on file Attends temple service: Not on file Active member of [...] left inguinal hernia repair with mesh - 00446-792 ? Anticipated Anesthetic: MAC with local ? Patient weight: Blood pressure 140/76, pulse 88. BMI: There is no height or weight on file to calculate BMI. ? Planned antibiotic: Ancef 2gm IVPB authorization representative to OR ? SCDs needed - Yes Return to Clinic: The patient is instructed to follow-up with me 1 week post operatively. ? Warren Porter MD [facility] NURSING PROGon 07-23-2019 NURSING PROG HNO ID: [id number] Author: Crystal (Rn) ARELY Celaya Service: Nursing Author Type: Registered Nurse Type: Nursing Progress Note Filed: 07/23/2019 2:41 PM Note Text: Nursing Progress Note Patient Name: Cesario Mg Patient Location: [place] Surgery/[place] Surgery 1356 Pt received in ASCU on cart from PACU. Snack given. This note was completed by: Crystal Celaya RN 1425 IV removed. Site without redness or swelling. Homegoing instructions given. Pt verbalizes understanding. Pt able to ambulate with steady gait. 1437 Pt discharged to home via wheelchair to car accomp by staff and family in stable cond. [facility] NURSING PROG HNO ID: [id number] Author: Christin LopezRn) ARELY Bennett Service: Nursing [...] and pt states he had diarrhea [facility] OPERATIVE NOon 07-23-2019 OPERATIVE NO HNO ID: [id number] Author: Warren Porter Service: General Surgery Author Type: Physician Type: Operative Report Filed: 07/24/2019 8:05 AM Note Text: [facility] - Operative Report CESARIO MG Jemal : 1965 AGE: 53. SEX: M PATIENT TYPE: A HOSP [facility]: [facility] LOCATION: [facility] ATTENDING PHYSICIAN: WRAREN PORTER CSN NUMBER: [id number] DATE OF SURGERY/PROCEDURE: 07/23/2019 INCISION/PROCEDURE START TIME: 11:25. INCISION CLOSE/PROCEDURE END TIME: 12:27. PREOPERATIVE DIAGNOSIS: Left inguinal hernia. POSTOPERATIVE DIAGNOSIS: Indirect left inguinal hernia. SURGEON: Warren Porter M.D. EQUIPMENT SPECIALIST: Dorothy Osorio. SURGERY/PROCEDURE: Left inguinal hernia repair with mesh plug using Covidien medium- sized plug, reference #SMPM02, lot #[id number], expires 12/04/2023. ANESTHESIA: Monitored anesthesia care. LOG ID: #[id number]. ANESTHESIOLOGIST: David Salazar. ASA: 3. INTRAVENOUS FLUIDS: [...] room in stable condition. Warren Porter M.D. [id number] /[id number] [facility] PLAN OF CAREon 07-23-2019 PLAN OF CARE HNO ID: [id number] Author: Natalie Mccloud ([employer]) Service: Pharmacy Author Type: ? Type: Plan of Care Filed: 07/23/2019 1:04 PM Note Text: OUTSIDE [employer] SAL[employer] CONSULTANT BEDSIDE DELIVERY SURVEY 1. Patient to use [facility] Bedside Delivery - YES Insurance Information as follows: 2. Insurance card on file - YES 3. Credit card for payment - YES PHARMACY BEDSIDE DELIVERY SERVICE Patient Name: Cesario Mg The marked outpatient medications were Filled at: [place] and delivered to the patient's bedside to [...] or your Primary Care Provider. Natalie Mccloud ([employer]) PAGER: [phone] July 23, 2019 1:03 PM [facility] PT EDon 07-23-2019 PT ED HNO ID: [id number] Author: Crystal LopezRn) ARELY Celaya Service: Nursing [...] Signed By: Crystal Celaya RN In Department: [facility] SURGERY [facility] PT ED HNO ID: [id number] Author: Simeon (Rn) ARELY Giron Service: Nursing Author Type: Registered Nurse Type: Patient Education Filed: 07/23/2019 9:08 AM Note Text: PATIENT EDUCATION TOPIC: PROCEDURE / SURGERY: Pre-op Teaching: PATIENT NAME: Cesario Mg PATIENT LOCATION: [place] Surgery/[place] Surgery READINESS TO LEARN COGNITIVE ABILITY: Alert [...] None Electronically Signed By: Simeon Giron RN [facility] SURGICAL PATHOLOGYon 019 SURGICAL PATHOLOGY Specimen originated from [facility] Specimen #: [id number] Submitting Physician: WARREN PORTER MD FINAL DIAGNOSIS [...] one cassette. NE/yung/07/23/19 [place] [address] Date of Report: 07/25/2019 Date of Procedure: 07/23/2019 Date of Receipt: 07/23/2019 Submitted by: WARREN PORTER MD Location: [facility] Diagnostic interpretation performed at [place] [address]. CLIA Number: [id number] [facility] NURSING PROGon 07-19-2019 NURSING PROG HNO ID: [id number] Author: Lindsey (Rn) ARELY Lyle Service: ? [...] Lyle RN July 19, 2019 8:09 AM [facility] Basic Metabolic Panlon 07-18 Anion gap [Moles/Vol] 14 mmol/L Normal -18 [facility] Calcium [Mass/Vol] 9.7 mg/dL Normal 8.5-10.2 [facility] Chloride [Moles/Vol] 90 mmol/L Low 97-105 [facility] CO2 [Moles/Vol] 29 mmol/L Normal 22-30 [facility] Creatinine [Mass/Vol] 0.94 mg/dL Normal 0.73-1.22 [facility] eGFR- Amer. >60 Normal [facility] GFR/1.73 sq M predicted among non-blacks MDRD (S/P/Bld) [Vol rate/Area] mL/min/{1.73_m2} Normal [facility] Comment on above: Result Comment: eGFR (Estimated [...] GFR. Glucose [Mass/Vol] 123 mg/dL High 74-99 [facility] Comment on above: Result Comment: The [place] Diabetes Association (ADA) provides guidance for cutoff [...] Standards of Medical Care in Diabetes 2016, [place] Diabetes Association. Diabetes Care. 2016.39(Suppl 1). Potassium [Moles/Vol] 3.8 mmol/L Normal 3.7-5.1 [facility] Sodium [Moles/Vol] 133 mmol/L Low 136-144 [facility] Urea nitrogen [Mass/Vol] 8 mg/dL Low 9-24 [facility] CBC and Differentialon 07-18 Abs Baso 0.04 k/uL Normal <0.11 [facility] Abs Bibb 0.48 k/uL Normal <0.87 [facility] Abs Neut 2.35 k/uL Normal 1.45-7.50 [facility] Basophils/100 WBC (Bld) 1.0 % Normal [facility] Eosinophils (Bld) [#/Vol] 0.09 10*3/uL Normal <0.46 [facility] Eosinophils/100 WBC (Bld) 2.3 % Normal [facility] Erythrocyte distribution width (RBC) [Ratio] 13.7 % Normal 11.5-15.0 [facility] Hematocrit (Bld) [Volume fraction] 41.7 % Normal 39.0-51.0 [facility] Hemoglobin (Bld) [Mass/Vol] 14.0 g/dL Normal 13.0-17.0 [facility] Lymphocytes (Bld) [#/Vol] 0.93 10*3/uL Low 1.00-4.00 [facility] Lymphocytes/100 WBC (Bld) 23.9 % Normal [facility] MCH (RBC) [Entitic mass] 31.7 pG Normal 26.0-34.0 [facility] MCHC (RBC) [Mass/Vol] 33.6 g/dL Normal 30.5-36.0 [facility] MCV (RBC) [Entitic vol] 94.3 fL Normal 80.0-100.0 [facility] Monocytes/100 WBC (Bld) 12.3 % Normal [facility] Neutrophils/100 WBC (Bld) 60.5 % Normal [facility] Platelet mean volume (Bld) [Entitic vol] 10.4 fL Normal 9.0-12.7 [facility] Platelets (Bld) [#/Vol] 152 10*3/uL Normal 150-400 [facility] RBC (Bld) [#/Vol] 4.42 10*6/uL Normal 4.20-6.00 [facility] WBC (Bld) [#/Vol] 3.89 10*3/uL Normal 3.70-11.00 [facility] HISTORY PHYSICALon 9 HISTORY PHYSICAL HNO ID: [id number] Author: Shani Saldaña (Jessica Handley Service: ? [...] FLUTICASONE,) 50 mcg/actuation nasal spray Use 1 Jackson in each nostril once daily. Yes ZINC [...] fevers. Neuro: No history of TIA's, stroke, WINDSHIELD TECHNICIAN tumor, impaired sensorium, hemiplegia, paraplegia or quadraplegia. No neurological symptoms or problems. Denies hx STONE/migraines. Denies numbness/tingling. Respiratory: No history of current cough or dyspnea, or pneumonia in the past 6 weeks. No history of respiratory/pulmonary symptoms or problems. +Former smoker, Denies asthma. +NUHA does not use CPAP. Seasonal allergies. Cardiovascular: Positive for: HLD, Hypertension, on rx, Negative for Recent IA, Arrhythmia, CAD, Chest Pain, CHF, PVD, Valvular [...] 2019 TIME: 8:25 AM PAGER/CONTACT #: Dahiana [facility] Mindy 06-21-2019 CNOV Office Visit (GENSWS ) CESARIO MG ([id number]) 1965 M Date Time Provider Department 06/21/19 9:40 AM WARREN PORTER During your visit today, we recorded the following information about you: Pulse Blood pressure 88/minute 140/76 Warren Porter MD 06/21/2019 1:01 PM Signed HISTORY AND PHYSICAL Cesario gM 1965 REFERRING PHYSICIAN: MD Irvin CHIEF COMPLAINT: [...] upper thigh and hemiscrotum. he presented to [facility] emergency department and was discharged [...] down twice. I recommended to present to [facility] emergency department. I contacted the emergency department [...] FLUTICASONE,) 50 mcg/actuation nasal spray Use 1 Jackson in each nostril once daily. ZINC ORAL [...] file Gets together: Not on file Attends temple service: Not on file Active member of [...] outcomes and possible complications were mentioned. Cesario bannerands that all hernia repair surgery has a [...] left inguinal hernia repair with mesh - 88803-138 Anticipated Anesthetic: MAC with local Patient weight: Blood pressure 140/76, pulse 88. BMI: There is no height or weight on file to calculate BMI. Planned antibiotic: Ancef 2gm IVPB authorization representative to OR SCDs needed - Yes Return [...] terrie* FLUTICASONE PROPIONATE 50 MCG* Use 1 Jackson in each nostril o* ZINC ORAL Take [...] 06/21/2019 9:28 AM >> KASI PORTILLO LPN [facility] Jun 21, 2019 9:28 AM Please d.C [...] Status:Closed by WARREN PORTER MD on 06/21/19 [facility] HOSPon 06-21-2019 HOSP Patient:Balaji Mg MRN: Height:5' [...] notes entered within the past 30 days [facility] PROGRESSon 06-21-2019 PROGRESS HNO ID: [id number] Author: Warren Porter Service: ? Author Type: [...] upper thigh and hemiscrotum. he presented to [facility] emergency department and was discharged [...] down twice. I recommended to present to [facility] emergency department. I contacted the emergency department [...] FLUTICASONE,) 50 mcg/actuation nasal spray Use 1 Jackson in each nostril once daily. ZINC ORAL [...] file Gets together: Not on file Attends temple service: Not on file Active member of [...] left inguinal hernia repair with mesh - 52192-210 Anticipated Anesthetic: MAC with local Patient weight: Blood pressure 140/76, pulse 88. BMI: There is no height or weight on file to calculate BMI. Planned antibiotic: Ancef 2gm IVPB authorization representative to OR SCDs needed - Yes Return to Clinic: The patient is instructed to follow-up with me 1 week post operatively. Warren Porter MD [facility] CNOV 03-20-2019 CNOV Office Visit (GENSWS ) CESARIO MG ([id number]) 1965 Date Time Provider Department 03/20/19 3:20 PM WARREN PORTER During your visit today, we recorded the following information about you: Warren Porter MD 03/20/2019 5:47 PM Signed FOLLOW UP VISIT - HERNIA NAME: Cesario Joaquin [facility] NO.: [id number] DATE OF SERVICE: March 20, 2019 : [...] upper thigh and hemiscrotum. he presented to [facility] emergency department and was discharged [...] down twice. I recommended to present to [facility] emergency department. I contacted the emergency department [...] terrie* FLUTICASONE PROPIONATE 50 MCG* Use 1 Jackson in each nostril o* ZINC ORAL Take [...] Status:Closed by WARREN PORTER MD on 03/20/19 [facility] PROGRESSon 03-20-2019 PROGRESS HNO ID: [id number] Author: Warren Porter Service: ? Author Type: Physician Type: Progress Notes Filed: 03/20/2019 5:47 PM Note Text: FOLLOW UP VISIT - HERNIA NAME: Cesario Joaquin [facility] NO.: [id number] DATE OF SERVICE: March 20, 2019 : [...] upper thigh and hemiscrotum. he presented to [facility] emergency department and was discharged [...] down twice. I recommended to present to [facility] emergency department. I contacted the emergency department [...] 3 months if needed. Warren Porter MD [facility] CNOVon 03-15-2019 CNOV Office Visit (GENSWS ) CESARIO MG ([id number]) 1965 [place] Date Time Provider Department 03/15/19 3:50 PM WARREN PORTER During your visit today, we recorded the following information about you: Warren Porter MD 03/15/2019 5:18 PM Signed FOLLOW UP VISIT - HERNIA NAME: Cesario Mg CLINIC NO.: [id number] DATE OF SERVICE: 03/15/2019 : 1965 Cesario [...] upper thigh and hemiscrotum. he presented to [facility] emergency department and was discharged [...] down twice. I recommended to present to [facility] emergency department. I contacted the emergency department [...] terrie* FLUTICASONE PROPIONATE 50 MCG* Use 1 Jackson in each nostril o* ZINC ORAL Take [...] by WARREN PORTER MD on 03/15/19 [facility] PROGRESSon 03-15-2019 PROGRESS HNO ID: [id number] Author: Warren Porter Service: ? Author Type: Physician Type: Progress Notes Filed: 03/15/2019 5:18 PM Note Text: FOLLOW UP VISIT - HERNIA NAME: Cesario Joaquin [facility] NO.: [id number] DATE OF SERVICE: 03/15/2019 : 1965 Cesario [...] upper thigh and hemiscrotum. he presented to [facility] emergency department and was discharged [...] down twice. I recommended to present to [facility] emergency department. I contacted the emergency department [...] me in 4 days. Warren Porter MD [facility] ANES Domenica 03-07-2019 ANES POST HNO ID: [id number] Author: David Salazar Service: Anesthesiology Author Type: [...] 07, 2019 TIME: 12:39 PM PAGER/CONTACT #: [phone] [facility] ANES PREOPon 03-07-2019 ANES PREOP HNO ID: [id number] Author: David Salazar Service: Anesthesiology Author Type: [...] FLUTICASONE,) 50 mcg/actuation nasal spray Use 1 Jackson in each nostril once daily. ZINC ORAL [...] March 07, 2019 TIME: 9:49 AM CSN: [id number] [facility] BRIEF OP NOTon 03-07-2019 BRIEF OP NOT HNO ID: [id number] Author: Warren Porter Service: General Surgery Author Type: Physician Type: Brief Op Note Filed: 03/07/2019 11:29 AM Note Text: BRIEF OPERATIVE NOTATION FOR SURGICAL PROCEDURE. Cesario Mg 1965 [id number] male LOG ID: [id number] Surgery/Procedure Date: 03/07/2019 Incision/Procedure Start Time: 10:30 AM Incision Close/Procedure End Time: 11:22 AM Surgeon(s)/Procedural ist(s) and Online Merchandiser(s): Surgeon(s) and Role: * Warren Porter - Primary Physician Online Merchandiser: Imtiaz Osorio (Pa Pa) REFERRING PHYSICIAN: Outpatient DEPT: [facility]IR PROVIDER: Jeffrey POS: [id number] ANESTHESIA: Monitored Anesthesia Care ASA CLASS: 3 - Severe DIAGNOSIS: right inguinal hernia PROCEDURE: open right inguinal hernia repair with mesh - 80127-393 IVF: 800 EBL: minimal Specimens: cord lipoma ADDITIONAL DIAGNOSES: FINDINGS: direct and indirect COMPLICATIONS: None PMHx - PAST MEDICAL HISTORY Diagnosis Date - Alcohol abuse - Allergic rhinitis - Anxiety - HTN (hypertension) - Hyperlipidemia - Sleep apnea COMORBIDITIES - Chronic Alcohol Abuse and HTN Post Op Occurrences - None Wound Classification - Clean Operative note dictated in the dictation system. - [id number] Warren Porter MD [facility] HISTORY PHYSICALon HISTORY PHYSICAL HNO ID: [id number] Author: Warren Porter Service: General Surgery Author [...] FLUTICASONE,) 50 mcg/actuation nasal spray Use 1 Jackson in each nostril once daily. ZINC ORAL [...] right inguinal hernia repair with mesh - 81496-115 ? Anticipated Anesthetic: MAC with local ? Patient weight: Blood pressure 138/78, pulse 96, temperature 36.8 ?C (98.2 ?F), height 180.3 cm (5' 11), weight 72.6 kg (160 lb), SpO2 97 %. BMI: Body mass index is 22.32 kg/m?. ? Planned antibiotic: Ancef 2gm IVPB authorization representative to OR ? SCDs needed - Yes Return to Clinic: The patient is instructed to follow-up with me 1 week post operatively. ? Warren Porter MD [facility] OPERATIVE NOon 03-07-2019 OPERATIVE NO HNO ID: [id number] Author: Warren Porter Service: General Surgery Author Type: Physician Type: Operative Report Filed: 03/08/2019 6:02 AM Note Text: [facility] - Operative Report CESARIO MG : 1965 AGE: 53. SEX: M PATIENT TYPE: A HOSP [facility]: [facility] LOCATION: [facility] ATTENDING PHYSICIAN: WARREN PORTER CSN NUMBER: [id number] DATE OF SURGERY/PROCEDURE: 03/07/2019 INCISION/PROCEDURE START TIME: 10:30 a.m. INCISION CLOSE/PROCEDURE END TIME: 11:22 a.m. PREOPERATIVE DIAGNOSIS: Right inguinal hernia. POSTOPERATIVE DIAGNOSIS: Right direct and indirect hernia. SURGEON: Warren Porter M.D. EQUIPMENT SPECIALIST: Imtiaz PERRY. SURGERY/PROCEDURE: Right inguinal hernia with mesh plug using a Covidien small- sized mesh plug, reference #SMPM02, lot #[id number], expires 12/03/2022. ANESTHESIA: Local MAC. LOG ID NUMBER: [id number]. ANESTHESIOLOGIST: David Salazar. ASA: 3. INTRAVENOUS FLUIDS: [...] secured. DICTATION ENDS HERE Warren Porter M.D. [id number] /[id number] [facility] OPERATIVE NO HNO ID: [id number] Author: Warren Porter Service: General Surgery Author Type: Physician Type: Operative Report Filed: 03/08/2019 6:02 AM Note Text: [facility] - Operative Report CESARIO MG : 1965 AGE: 53. SEX: M PATIENT TYPE: A HOSP SV: [facility] LOCATION: [facility] ATTENDING PHYSICIAN: WARREN PORTER CSN NUMBER: [id number] DATE OF SURGERY/PROCEDURE: 03/07/2019 INCISION/PROCEDURE START TIME: 10:30 a.m. INCISION CLOSE/PROCEDURE END TIME: 11:22 a.m. PREOPERATIVE DIAGNOSIS: Right inguinal hernia. POSTOPERATIVE DIAGNOSIS: Direct and indirect right inguinal hernia. SURGEON: Warren Porter M.D. EQUIPMENT SPECIALIST: Imtiaz PERRY. SURGERY/PROCEDURE: Right inguinal hernia repair with mesh using a Covidien mesh plug reference# FMPM02, lot #[id number], expires 12/03/2022. ANESTHESIA: Local MAC. LOG ID NUMBER: [id number]. ANESTHESIOLOGIST: David Salazar. ASA: 3. IV FLUIDS: [...] room in stable condition. Warren Porter M.D. [id number] /[id number] [facility] PLAN OF CAREon 03-07-2019 PLAN OF CARE HNO ID: [id number] Author: Natalie Mccloud ([employer]) Service: Pharmacy Author Type: ? Type: Plan of Care Filed: 03/07/2019 1:47 PM Note Text: OUTSIDE [employer]AR SALES CONSULTANT BEDSIDE DELIVERY SURVEY 1. Patient to use [facility] Bedside Delivery - YES Insurance Information as follows: 2. Insurance card on file - YES 3. Credit card for payment - YES PHARMACY BEDSIDE DELIVERY SERVICE Patient Name: Cesario Mg The marked outpatient medications were Filled at: [place] and delivered to the patient's bedside to [...] or your Primary Care Provider. Natalie Mccloud ([employer]) PAGER: [phone] March 07, 2019 1:47 PM [facility] PT EDon 03-07-2019 PT ED HNO ID: [id number] Author: Jackie LopezRn) ARELY Pritchett Service: ? [...] By: Jackie Pritchett, RN, BSN In Department: [facility] SURGERY [facility] PT ED HNO ID: [id number] Author: Uri (Rn) ARELY Pena Service: Nursing [...] Signed By: Uri Pena RN In Department: [facility] SURGERY [facility] SURGICAL PATHOLOGYon 019 SURGICAL PATHOLOGY Specimen originated from [facility] Specimen #: [id number] Submitting Physician: WARREN PORTER MD FINAL DIAGNOSIS [...] obvious areas of induration are grossly present. [employer] Designer sections are submitted in cassettes A1-A2. [facility]//03-07-2019 [place] [address] Date of Report: 03/09/2019 Date of Procedure: 03/07/2019 Date of Receipt: 03/07/2019 Submitted by: WARREN PORTER MD Location: [facility] Diagnostic interpretation performed at [place] [address]. CLIA Number: [id number] [facility] NURSING PROGon 03-02-2019 NURSING PROG HNO ID: [id number] Author: Anabelle Villela RN Service: ? Author [...] Villela RN March 06, 2019 7:39 AM [facility] HISTORY PHYSICALon 9 HISTORY PHYSICAL HNO ID: [id number] Author: Shani Handley Service: ? Author Type: [...] Prior to Admission medications as of 02/28/19 2061 Medication Sig Last Dose Taking citalopram (CELEXA) [...] FLUTICASONE,) 50 mcg/actuation nasal spray Use 1 Jackson in each nostril once daily. Taking Yes [...] fevers. Neuro: No history of TIA's, stroke, WINDSHIELD TECHNICIAN tumor, impaired sensorium, hemiplegia, paraplegia or quadraplegia. No neurological symptoms or problems. Denies hx STONE/migraines. Denies numbness/tingling. Respiratory: No history of current cough or dyspnea, or pneumonia in the past 6 weeks. No history of respiratory/pulmonary symptoms or problems. +Former smoker, Denies asthma. +NUHA does not use CPAP. Seasonal allergies. Cardiovascular: Positive for: HLD, Hypertension, on rx, Negative for Recent IA, Arrhythmia, CAD, Chest Pain, CHF, PVD, Valvular [...] prepared for surgery. 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 He [...] FLUTICASONE,) 50 mcg/actuation nasal spray Use 1 Jackson in each nostril once daily. ZINC ORAL [...] entered by the nurse and reviewed by al Nursing Notes: Kasi Portillo LPN 02/27/2019 3:20 [...] last Mammogram screening? N/A Last Colonoscopy: [address] [facility] PHYSICAL EXAMINATION: General: The patient is 53 [...] right inguinal hernia repair with mesh - [id number] Anticipated Anesthetic: MAC with local Patient weight: Blood pressure 138/78, pulse 96, temperature 36.8 ?C (98.2 ?F), height 180.3 cm (5' 11), weight 72.6 kg (160 lb), SpO2 97 %. BMI: Body mass index is 22.32 kg/m?. Planned antibiotic: Ancef 2gm IVPB authorization representative to OR SCDs needed - Yes Return [...] terrie* FLUTICASONE PROPIONATE 50 MCG* Use 1 Jackson in each nostril o* ZINC ORAL Take [...] screening? N/A Last Colonoscopy: 2017 Kasi Portillo PHYSICIST ACOUSTICS Encounter Status:Closed by WARREN PORTER MD on 02/27/19 [facility] HOSPon 02-27-2019 [facility] Patient:Balaji Mg MRN: Height:5' 11(1.803 m) [...] for the following basenames: K,HCT Progress Notes ([facility]): Barrington Espinal 02/27/2019 3:30 PM Signed [facility] Barrington Espinal [facility] Kasi Portillo LPN 02/27/2019 3:20 PM [...] FLUTICASONE,) 50 mcg/actuation nasal spray Use 1 Jackson in each nostril once daily. ZINC ORAL [...] entered by the nurse and reviewed by al Nursing Notes: Kasi Portillo LPN 02/27/2019 3:20 [...] last Mammogram screening? N/A Last Colonoscopy: [address] [facility] PHYSICAL EXAMINATION: General: The patient is 53 [...] right inguinal hernia repair with mesh - [id number] Anticipated Anesthetic: MAC with local Patient weight: Blood pressure 138/78, pulse 96, temperature 36.8 ?C (98.2 ?F), height 180.3 cm (5' 11), weight 72.6 kg (160 lb), SpO2 97 %. BMI: Body mass index is 22.32 kg/m?. Planned antibiotic: Ancef 2gm IVPB authorization representative to OR SCDs needed - Yes Return to Clinic: The patient is instructed to follow-up with me 1 week post operatively. Warren Porter MD [facility] PROGRESSon 02-27-2019 PROGRESS HNO ID: [id number] Author: Warren Porter Service: ? Author Type: [...] FLUTICASONE,) 50 mcg/actuation nasal spray Use 1 Jackson in each nostril once daily. ZINC ORAL [...] entered by the nurse and reviewed by al Nursing Notes: Kasi Portillo LPN 02/27/2019 3:20 [...] screening? N/A Last Colonoscopy: 2018 Kasi Portillo PHYSICIST ACOUSTICS PHYSICAL EXAMINATION: General: The patient is 53 [...] right inguinal hernia repair with mesh - [id number] Anticipated Anesthetic: MAC with local Patient weight: Blood pressure 138/78, pulse 96, temperature 36.8 ?C (98.2 ?F), height 180.3 cm (5' 11), weight 72.6 kg (160 lb), SpO2 97 %. BMI: Body mass index is 22.32 kg/m?. Planned antibiotic: Ancef 2gm IVPB authorization representative to OR SCDs needed - Yes Return to Clinic: The patient is instructed to follow-up with me 1 week post operatively. Warren Porter MD [facility] Vital Signs Date Time Vital Sign Value Performing Clinician Eveline gonzalez 05-12-2024 11:08-0400 Body temperature 98.06 [degF] GREGORY RIOS MD [facility] 05-12-2024 11:08-0400 Diastolic Blood Pressure Non-Invasive 95 mm[Hg] GREGORY RIOS MD [facility] 05-12-2024 11:08-0400 Heart rate 88 /min GREGORY RIOS MD [facility] 05-12-2024 11:08-0400 Mean blood pressure 111 mm[Hg] GREGORY RIOS MD [facility] 05-12-2024 11:08-0400 Reason For Taking VItal Signs GREGORY RIOS MD [facility] 05-12-2024 11:08-0400 Respiratory rate 20 /min GREGORY RIOS MD [facility] 05-12-2024 11:08-0400 Systolic Blood Pressure Non-Invasive 164 mm[Hg] GREGORY RIOS MD [facility] 05-12-2024 10:10-0400 Heart rate 89 /min GREGORY RIOS MD [facility] 05-12-2024 09:08-0400 Diastolic Blood Pressure Non-Invasive 96 mm[Hg] GREGORY RIOS MD [facility] 05-12-2024 09:08-0400 Heart rate 86 /min GREGORY RIOS MD [facility] 05-12-2024 09:08-0400 Systolic Blood Pressure Non-Invasive 136 mm[Hg] GREGORY RIOS MD [facility] 05-12-2024 07:30-0400 Body temperature 98.06 [degF] GREGORY RIOS MD [facility] 05-12-2024 07:30-0400 Diastolic Blood Pressure Non-Invasive 96 mm[Hg] GREGORY RIOS MD [facility] 05-12-2024 07:30-0400 Mean blood pressure 108 mm[Hg] GREGORY RIOS MD [facility] 05-12-2024 07:30-0400 Reason For Taking VItal Signs GREGORY RIOS MD [facility] 05-12-2024 07:30-0400 Respiratory rate 18 /min GREGORY RIOS MD [facility] 05-12-2024 07:30-0400 Systolic Blood Pressure Non-Invasive 140 mm[Hg] GREGORY RIOS MD [facility] 05-12-2024 04:00-0400 Body temperature 98.6 [degF] GREGORY RIOS MD [facility] 05-12-2024 04:00-0400 Mean blood pressure 94 mm[Hg] GREGORY RIOS MD [facility] 05-12-2024 04:00-0400 Respiratory rate 16 /min GREGORY RIOS MD [facility] 05-11-2024 22:30-0400 Reason For Taking VItal Signs GREGORY RIOS MD [facility] 05-10-2024 22:59-0400 Body height 180.3 cm GREGORY RIOS MD [facility] 05-10-2024 22:59-0400 Body weight 79.3 kg GREGORY RIOS MD [facility] 05-10-2024 22:59-0400 Body weight 24.39 kg/m2 GREGORY RIOS MD [facility] 05-10-2024 16:26-0400 Heart rate 76 /min DR HILARY CAMPOVERDE MD [facility] 05-10-2024 16:26-0400 Respiratory rate 16 /min DR HILARY CAMPOVERDE MD [facility] 05-10-2024 15:26-0400 Diastolic Blood Pressure Non-Invasive 62 mm[Hg] DR HILARY CAMPOVERDE MD [facility] 05-10-2024 15:26-0400 Heart rate 66 /min DR HILARY CAMPOVERDE MD [facility] 05-10-2024 15:26-0400 Respiratory rate 16 /min DR HILARY CAMPOVERDE MD [facility] 05-10-2024 15:26-0400 Systolic Blood Pressure Non-Invasive 114 mm[Hg] DR HILARY CAMPOVERDE MD [facility] 05-10-2024 13:38-0400 Body temperature 98.06 [degF] DR HILARY CAMPOVERDE MD [facility] 05-10-2024 13:38-0400 Diastolic Blood Pressure Non-Invasive 62 mm[Hg] DR HILARY CAMPOVERDE MD [facility] 05-10-2024 13:38-0400 Heart rate 73 /min DR HILARY CAMPOVERDE MD [facility] 05-10-2024 13:38-0400 Respiratory rate 18 /min DR HILARY CAMPOVERDE MD [facility] 05-10-2024 13:38-0400 Systolic Blood Pressure Non-Invasive 101 mm[Hg] DR HILARY CAMPOVERDE MD [facility] Encounters Encounter Date Encounter Type Care Provider Facility Start: 05-14-2024 End: 05-14-2024 ambulatory DOMINIC MORTON DO Facility:[facility] Start: 05-14-2024 End: 05-14-2024 Patient encounter procedure JAMILA YI MD [facility] Start: 05-10-2024 End: 05-12-2024 Evaluation and management of inpatient GREGORY RIOS MD [facility] Start: 05-10-2024 End: 05-10-2024 Emergency department patient visit DR HILARY CAMPOVERDE MD [facility] Start: 02-24-2024 End: 02-24-2024 ambulatory Geeta Chavez Facility:[facility] Start: 05-17-2023 End: 05-17-2023 ambulatory [facility] Work Phone: Start: 05-17-2023 End: 05-17-2023 Patient encounter procedure [facility] Start: 04-27-2022 End: 04-27-[address] Geeta Chavez Work Phone: [facility] Start: 04-26-2022 End: 04-26-[address] Geeta Chavez Work Phone: [facility] Work Phone: Start: 04-26-2022 End: 04-26-[address] Geeta Chavez Work Phone: [facility] Start: 01-27-2022 End: 01-27-[address] Geeta Chavez Work Phone: [facility] Procedures Date Procedure Procedure Detail Performing [...] specific antigen total ASSAY OF PSA TOTAL [facility] Immunizations Immunization Date Immunization Notes Care Provider Fa cility 06-04-2018 tetanus toxoid, redu belle diphtheria toxoid, and acellular pertussis vaccine, adsorbed; Translations: [Boostrix (Tdap)] DR HILARY CAMPOVERDE MD [facility] Payers Date Payer Category Payer Unknown [id number] 2024 Unknown [id number] 2024 Self-pay [id number] 1965 Unknown [id number] 1965 Unknown [id number] 1966 Unknown [id number] Unknown [facility] AUTH REQUIR ED SEE NOTE [id number] Unknown [id number] Social History Date Type Detail Facility Start: 11-12-2021 Tobacco smoking status NHIS Unknown if ever smoked [facility] Start: 11-20-2020 Heavy [facility] Start: 11-20-2020 None [facility] Start: 11-20-2020 Spouse/ Signif icant Other [facility] Start: 01-07-2021 Chew [facility] Start: 1965 Sex Assigned At Male W [facility] Tobacco Nicotine Use: CH EWS 1 CAN PER DAY. [facility] Tobacco smoking status Occasional tobacco smoker (finding) [facility] Functional Status Date Assessment Result Facility 05-12-2024 Functional Status Bed alert on, Door open, Room check performed [facility] 05-12-2024 Functional Status [facility] 05-12-2024 Functional Status [facility] 05-11-2024 Functional Status Refused [facility] 05-11-2024 Functional Status [facility] 05-11-2024 Functional Status Lunch Percent 80 [facility] 05-11-2024 Functional Status [facility] 05-11-2024 Functional Status [facility] 05-11-2024 Functional Status [facility] 05-10-2024 Functional Status Sensory Deficits None A [facility] 05-10-2024 Functional Status None [facility] 05-10-2024 Functional Status Awake [facility] 05-10-2024 Functional Status [facility] Mental Status Date Assessment Result Facility 05-12-2024 Mental Status Oriented x 4 [facility] 05-12-2024 Mental Status [facility] 05-11-2024 Mental Status [facility] 05-10-2024 Mental Status Orientation Oriented x 4 [facility] 05-10-2024 Mental Status [facility] Clinical Notes 01-07-2021 to 05-12-2024 Note Date & Type Note Facility 05-12-2024 Hospital Discharge instructions Patient Education 05/12/2024 11:51:51 Alcohol Withdrawal Syndrome, Wbvd-pu-Bccz Alcohol Withdrawal Syndrome When a person who [...] away. Follow these instructions at home: Take pmyl-haz-nkssdik and prescription medicines only as told by [...] 02/07/2009 Document Revised: 08/04/2018 Document Reviewed: 04/28/2018 [employer] Patient Education 2020 [employer] Follow Up Care 05/10/2024 17:49:59 With:Follow up with primary care provider Address:Unknown When:1-2 days [facility] 05-12-2024 Note Discharge Instructions Thank you for allowing [facility] to assist you with your healthcare needs. [...] mouth Once a day Pickup at [facility]/pharmacy #[id number] Unchanged amLODIPine (amLODIPine 5 mg oral tablet) 1 tab(s) by mouth Once a day Unchanged cetirizine 10 Milligram by mouth Once a day Unchanged multivitamin (Multivitamin) 1 tab(s) by mouth Every day Unchanged rosuvastatin (rosuvastatin 40 mg oral tablet) 0.5 Milligram by mouth Once a day Pharmacy Information [facility]/pharmacy #[id number]: [address], [place] [phone] What How Much When Comments Stop Taking [...] away. Follow these instructions at home: Take joht-mfi-fwfzmsl and prescription medicines only as told by [...] 02/07/2009 Document Revised: 08/04/2018 Document Reviewed: 04/28/2018 [employer] Patient Education 2020 [employer] Additional Information VACCINATE! IT SAVES LIVES! Members of the community who have not yet received the COVID-19 vaccine and would like to receive it can visit one of [facility] vaccine clinics. There are many vaccine clinic locations within the [facility]. For locations and available times, please visit https://gettheshot.coronavirus.iai o.gov/. It is important to note that some COVID mobile vaccine clinics are held outdoors and may be canceled in rainy or stormy conditions. To learn more about pediatric vaccinations (ages 5-11), we invite you to visit the [facility] webpage. https://www.[facility].org/pag es/6272-Dnpyh-Tlaaycbqrgt-Frequent ao-Tqvhi-Sttwznmio.html To learn more about the COVID-19 vaccine, we invite you to visit the CDC website for a list of frequently asked questions.https://www.cdc.gov/lee navirus/2019-ncov/vaccines/faq.htm ann marie [facility] Patient Portal Access Instructions: Stay connected with your healthcare team and access your personal medical information anytime with the [facility] Patient Portal. Please follow the directions below to create your [employer] account: 1.Access the email account you provided upon registration to the hospital/physician office.2.Look for an invitation email from [facility].3.Open the email and access the invitation link: Accept Invitation to [facility].4.Fill in the required swanson to create your account. To access your account, visit [email or web address]. Click the blue button labeled Access Patient [...] you will allow to register on the [facility] [employer] Patient Portal for access to your information. You can also access the [facility] Patient Portal on the [facility] yael. Simply click on Patient Portal and then log into your account. If you would like to receive a full copy of your medical records, please contact the [facility] Medical Records Department by calling [phone], Tuesday through Tuesday between 8 a.m. and [...] Call your local pharmacy or go to http://Mandic.Syncronex/[email or web address] to find one close to you.3.Make use of household items: Use cat litter or old coffee grounds to dispose medications if other options are not available. Mix your drugs with these household products, seal them in an airtight container and throw it into the garbage. Call [facility]: [phone] to be sure your drugs can be [...] Signatures Patient Education Materials Alcohol Withdrawal Syndrome, Ydae-ac-Bfkf Medication Leaflets My discharge plan and instructions have been reviewed and explained to me and I,BALAJI MG understand my current condition and have read and understand these discharge instructions. I have received a written copy of the plan/instructions. If I have questions, I am aware that I should contact my doctor. 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 Signature: Date/Time: Relationship to Patient: ___ Witness Name/Signature: Date/Time: [facility] 05-12-2024 Discharge summary Discharge Diagnosis Hypo-osmolality and hyponatremia (E87.1 - ICD-10-CM) Hyperlipidemia, unspecified (E78.5 - ICD-10-CM) Essential (primary) hypertension (I10 - ICD-10-CM) Hypokalemia (E87.6 - ICD-10-CM) Hypomagnesemia (E83.42 - ICD-10-CM) Ataxia, unspecified (R27.0 - ICD-10-CM) Alcohol abuse, uncomplicated (F10.10 - ICD-10-CM) Additional Orders: Ordered: BMP,05/12/24 14:00:00 EDT, Timed Study (collect at specified time), Blood, Once, Preferred Lab: [facility], Stop date 05/12/24 14:00:00 EDT Discontinued: Consult [...] # 30 tab(s), 0 Refill(s), Pharmacy: [facility]/pharmacy #[id number], 180.3, cm, 05/10/24 22:59:00 EDT, Height, kg, 05/10/24 22:59:00 EDT, Dosing Weight Hospital Course Patient is a pleasant male with a history of significant alcohol abuse who comes in after having a syncopal event at home. He was found to be severely hyponatremic and was admitted to the medical intensive care unit here at [facility]. His sodium was slowly corrected and [...] tablet)1 tab(s) by mouth once a day. [id number] Milligram by mouth once a day. multivitamin [...] YI MD FAC on 05/12/2024 01:00 PM [facility] 05-11-2024 History and physical note Date of Service 05/11/2024 00:31:16 History of Present Illness 58-year-old male with a history of hyperlipidemia and hypertension on lisinopril and amlodipine transferred to the intensive care unit for hyponatremia coming from [facility] emergency department. He tells me that [...] ataxia has persisted prompting a trip to [facility] emergency department today. 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 Imaging at [facility] included a CT cervical spine, maxillofacial [...] GERALDINE SAEED DO on 05/11/2024 12:33 AM [facility] 05-11-2024 Note Date of Service 05/11/24 [...] Eye Bilateral - Skin Abnormality Color: Black, [place]iro[place] Bilateral - Skin Abnormality Type: Bruise Eye [...] by ARELY Lunsford on 05/11/2024 11:26 AM [facility] 05-10-2024 History and physical note Date of Service 05/11/2024 00:31:16 History of Present Illness 58-year-old male with a history of hyperlipidemia and hypertension on lisinopril and amlodipine transferred to the intensive care unit for hyponatremia coming from [facility] emergency department. He tells me that [...] ataxia has persisted prompting a trip to [facility] emergency department today. 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 Imaging at [facility] included a CT cervical spine, maxillofacial [...] GERALDINE SAEED DO on 05/11/2024 12:33 AM [facility] 05-10-2024 Note ORIGINAL EXAMINATION: CT OF [...] 05/10/2024 4:33:52 PM Ordering Provider: EBONY RAE [facility] 05-10-2024 Note ORIGINAL EXAMINATION: CT OF THE [...] 05/10/2024 4:36:06 PM Ordering Provider: EBONY RAE [facility] 05-10-2024 Note ORIGINAL EXAMINATION: CT OF THE [...] 05/10/2024 4:43:34 PM Ordering Provider: EBONY RAE [facility] 05-10-2024 Note Sinus rhythm Prolonged AR interval Left atrial enlargement Borderline ST elevation, anterior leads Baseline wander in lead(s) V2 Electronic Signature: MD GILLES, HILARY HARRINGTON 05/10/2024 15:36:28 [facility] 05-10-2024 Evaluation + Plan note Diagnostic Tests PendingComplete Blood Count 05/10/24.Auto Differential 05/10/24.Neutro Absolute 05/10/24.Bibb Distribution Width 05/10/24 [facility] 01-04-2024 Evaluation + Plan note Extrac cna from: Title:History and Physical Author:GERALDINE SAEED Date:05/10/24 [...] Tests Pending * Basic Metabolic Panel 05/12/24 [facility] 05-05-2021 Evaluation note* Diagnosis Onset Date Resolution Status History of loop recorder January 07, 2021 ch ronic Syncope and collapse chronic History of loop recorder January 07, 2021 ch ronic Syncope and collapse chronic [facility] Work Phone: Evaluation noteNo assessment information available [facility] Work Phone: Hospital course Narrative No data available for this section [facility] Discharge instructions No data available for this section [facility] Progress note No data available for this section [facility] Reason for referral (narrative)No [facility] Summary Purpose Family History No Family History Records Found Relationship Condition Age at Onset Recorded Date/T alla mother Asthma Unknown Advance Directives No Advanced Directives Records Found Advance Directive Response Recorded Date/ Time Advance Directives No January 07, 2021 7:04am Living Will No October 06 10:15am Power of Mailing Jogger No October 06, 2021 10:15am Chief Complaint [...] section and content) DATE CREATED AUTHOR 07/18/2019 [facility] DATE CREATED AUTHOR AUTHOR'S ORGANIZ ATION 07/25/2019 [facility] DATE CREATED AUTHOR AUTHOR'S ORGANIZ ATION 05/12/2024 [facility] ([place]) DATE CREATED AUTHOR AUTHOR'S ORGANIZ ATION 05/16/2024 [facility] DATE CREATED AUTHOR AUTHOR'S ORGANIZ ATION 05/19/2024 [facility] DATE CREATED AUTHOR AUTHOR'S ORGANIZ ATION 02/27/2025 [facility] Goals (unrecognized section and content) Goals [...] Dr. Geeta Chavez MD Primary Care Provider, [facility] Provider Active FOR RECORDS PERTAINING TO [...] BE BASED ON THE PRIMARY CLINICAL RECORDS. [employer] provides no warranty or guarantee of the accuracy or completeness of information in this document.
[2025-08-28 12:26] LABS: Hematocrit 37.9 % (40-54); Hemoglobin 13.0 g/dL (13.0-16.5); Mean Corp Hgb Conc 34.3 g/dL (32-36); Mean Corpuscular Volume 91.1 fL (80-94); Mean Platelet Vol. 11.3 fl (6.2-12.0); Platelet Count 110 K/mm3 (150-450); RBC Distribution Width CV 11.8 % (11.6-14.6); RBC Distribution Width SD 39.2 fl (35.1-43.9); Red Blood Count 4.16 M/mm3 (4.6-6.2); White Blood Count 4.0 K/mm3 (4.4-11.0)
[2025-08-28 12:57] LABS: AST(SGOT) 86 U/L (<=37); Alanine Aminotransfer ALT/SGPT 119 U/L (<=46); Albumin, Serum 4.5 g/dL (3.5-5.0); Alkaline Phosphatase 96 U/L (40-129); Anion Gap 12 (7-18); BUN 17 mg/dL (4-19); BUN/Creat Ratio 19.1 RATIO (10-20); Calcium,Total 10.2 mg/dL (7.6-11.0); Carbon Dioxide 29.1 mmol/L (20.0-29.0); Chloride 92 mmol/L (96-106); Cholesterol 167 mg/dL (<=200); Globulin 2.8 g/dL (2.2-4.2); Glucose 105 mg/dL (70-99); Low Density Lipoprotein Calc. 78 mg/dL; PSA,Total - Annual Screen 1.20 ng/mL (0.02-4.00); Potassium 3.4 mmol/L (3.5-5.1); Triglycerides 52 mg/dL; Very Low Density Lipoprotein 10 mg/dL (5-40); cholesterol:hdl ratio screen 2.14
== END | disposition home or self-care (01) ==
LOC: MTLAB 10:13
PROVIDERS: PCP Family Medicine; Referring Provider Family Medicine; Visit Provider Family Medicine
DX: Z13.220 Encounter for screening for lipoid disorders (principal); Z12.5 Encounter for screening for malignant neoplasm of prostate; I10 Essential (primary) hypertension
CPT/HCPCS: 84153; 36415; 80053; 80061; 85027; G0103